=== PATIENT | female | born 1950 | race African-American/Black ===

== ENCOUNTER 2016-10-15 14:47 | Emergency (ER) | payer OTHER, BC, MEDICARE ==
[2016-10-15 15:05] VITALS: BP 140/68; PULSE 68; TEMP 98.5; BMI 36.6
[2016-10-15] MEDS ORDERED: IBUPROFEN 600 MG TABLET (FP) PO ONE (15:28)
--- NOTE | 2016-10-15 15:28 | PDOC ---
History of Present Illness - General Chief Complaint: Pain Stated Complaint: LT FOOT PAIN Time Seen by Provider: 10/15/16 15:08 History Source: Patient Exam Limitations: No Limitations - History of Present Illness Initial Comments: 10/15/16 15:25 66 yr female with left foot and ankle pain for 2 days, pt states she stepped on a rock 2 days ago. Pt did not take any pain meds. Occurred: reports: yesterday Severity: reports: mild Pain Location: reports: lower extremity (left foot/ankle) Past History 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 History Allergies/Adverse Reactions: Allergies Allergy/AdvReac Type Severity Reaction Status Date / Time Penicillins Allergy Hives Verified 10/15/16 15:03 codeine [Codeine] AdvReac HALLUCINATIONS, Verified 10/15/16 15:03 DROWSY morphine AdvReac HALLUCINATI Verified 10/15/16 15:03 ONS Home Medications: Ambulatory Orders Aspirin Coated [Ecotrin -] 81 mg PO DAILY 08/09/13 Docusate Sodium [Colace -] 100 mg PO DAILY 08/09/13 Acetaminophen [Tylenol .Regular Strength -] 650 mg PO Q6H PRN #0 tablet Albuterol Sulfate [Proair Hfa -] 1 inh PO ASDIR PRN 90 Days 05/17/15 Alprazolam [Xanax] 0.25 mg PO Q6H PRN #90 tablet 05/17/15 Atorvastatin Ca [Lipitor] 40 mg PO HS #90 tablet 05/17/15 Budesonide/Formeterol Fumarate [SYMBICORT 80/4.5mcg -] 2 inh IH BID 90 Days Clopidogrel Bisulfate [Plavix -] 75 mg PO DAILY #90 tablet 05/17/15 Folic Acid - 1 mg PO DAILY #90 tablet 05/17/15 Isosorbide Mononitrate [Imdur -] 90 mg PO DAILY 90 Days 05/17/15 Lactobacillus Acidophilus [Bacid -] 1 tab PO DAILY tab 05/17/15 Lisinopril [Prinivil] 10 mg PO DAILY #90 tablet 05/17/15 Magnesium Oxide [Mag-Ox -] 800 mg PO DAILY #90 tablet 05/17/15 Metformin HCl 500 mg PO BID #180 tablet 05/17/15 Metoprolol Succinate [Toprol XL -] 25 mg PO DAILY #90 tab.sr.24h 05/17/15 Prednisone [Deltasone -] 40 mg PO DAILY #20 tablet 05/17/15 Ranitidine HCl [Zantac] 150 mg PO DAILY #90 tablet 05/17/15 Tiotropium [place] [Spiriva] 1 inh PO DAILY #90 inh 05/17/15 Torsemide 20 mg PO DAILY #90 tablet 05/17/15 Tramadol HCl [Ultram -] 50 mg PO Q8H PRN #90 tablet 05/17/15 Gabapentin 100 mg PO TID PRN #270 capsule 05/18/15 Clindamycin [Cleocin -] 300 mg PO Q6HPO #28 capsule 12/02/15 Anemia: Yes Asthma: Yes (inhalers at home) Cancer: No Cardiac Disorders: Yes (ANGINA, STENTS X2) CVA: No COPD: No CHF: Yes Dementia: No Diabetes: Yes GI Disorders: Yes (ACID REFLUX) Disorders: No HTN: Yes Hypercholesterolemia: Yes Liver Disease: No Suicide Attempt (Hx): No Seizures: No Thyroid Disease: No Lung CA: (COPD) - Surgical History Abdominal Surgery: No Appendectomy: No Cardiac Surgery: Yes (DOUBLE AND TRIPLE BYPASS) Cholecystectomy: No Lung Surgery: No Neurologic Surgery: No Orthopedic Surgery: Yes (rt rotator cuff repair, rt knee surgery) - Psycho/Social/Smoking Cessation Hx Anxiety: Yes Suicidal Ideation: No Smoking Status: Yes Smoking History: Never smoked Have you smoked in the past 12 months: No Number of Cigarettes Smoked Daily: 0 If you are a former smoker, when did you quit?: about 30 years ago Hx Alcohol Use: No Drug/Substance Use Hx: No Substance Use Type: None Hx Substance Use Treatment: No Trauma Specific PMHX - Complaint Specific PMHX Arthritis: No Back Injury: No Review of Systems - Review of Systems Able to Perform ROS?: Yes Comments:: 10/15/16 15:27 Is the patient limited Telugu proficient: No Constitutional: No: Symptoms Reported HEENTM: No: Symptoms Reported, Recent change in vision Respiratory: No: Symptoms reported Cardiac (ROS): No: Symptoms Reported ABD/GI: No: Symptoms Reported : No: Symptoms Reported Musculoskeletal: Yes: See HPI Integumentary: No: Symptoms Reported Neurological: No: Symptoms reported *Physical Exam - Vital Signs Last Vital Signs Temp Pulse Resp BP Pulse Ox 98.5 F 68 18 140/68 99 10/15/16 15:03 10/15/16 15:03 10/15/16 15:03 10/15/16 15:03 10/15/16 15:03 - Physical Exam General Appearance: Yes: Nourished, Appropriately Dressed HEENT: positive: EOMI, NARESH Neck: positive: Supple. negative: Tender Respiratory/Chest: positive: Lungs Clear, Normal Breath Sounds Cardiovascular: positive: Regular Rhythm, Regular Rate Musculoskeletal: positive: Normal Inspection, Other (ttp left dorsal midfoot, forefoot, lateral malleoulus) Extremity: positive: Normal Capillary Refill, Normal Inspection, Normal Range of Motion Integumentary: positive: Normal Color, Dry, Warm Neurologic: positive: Fully Oriented, Alert, Normal Mood/Affect, Normal Response , Motor Strength / Procedures - Splinting Progress: 10/15/16 16:10 hayder wrap, hard sole shoe and cane ED Treatment Course - RADIOLOGY Radiology Studies Ordered: Category Date Time Status ANKLE & FOOT-LEFT* [RAD] Stat Radiology 10/15/16 15:19 Ordered Comments: avuslion cuboid bone left foot prelimiary reading Medical Decision Making - Medical Decision Making 10/15/16 15:28 cc: foot and ankle pain will xray to r/o fracture motrin for pain *DC/Admit/Observation/Transfer Diagnosis at time of Disposition: Foot fracture, left Qualifiers: Encounter type: initial encounter Fracture type: closed Qualified Code(s): S92.902A - Unspecified fracture of left foot, initial encounter for closed fracture - Discharge Dispostion Disposition: HOME Condition at time of disposition: Good - Referrals Referrals: Flores Christiansen [Primary Care Provider] - Igor Kilpatrick MD [Staff Physician] - - Patient Instructions Additional Instructions: call the orthopedist Tuesday to make a follow up appointment for tuesday or tuesday keep the hayder wrap and hard sole shoe in place elevate and apply ice every 2hrs for 20 minutes take motrin for pain as needed
== END 2016-10-15 16:31 | disposition home or self-care (01) ==
LOC: JERFT 14:47
DX: S92.902A Unspecified fracture of left foot, initial encounter for closed fracture (principal); W22.8XXA Striking against or struck by other objects, initial encounter; Y93.89 Activity, other specified; Y92.9 Unspecified place or not applicable; J45.909 Unspecified asthma, uncomplicated; Z95.5 Presence of coronary angioplasty implant and graft; I20.9 Angina pectoris, unspecified; K21.9 Gastro-esophageal reflux disease without esophagitis; I10 Essential (primary) hypertension; E78.00 Pure hypercholesterolemia, unspecified; J44.9 Chronic obstructive pulmonary disease, unspecified; Z87.891 Personal history of nicotine dependence
CPT/HCPCS: 73610-TC-LT; 73630-TC-LT; 99281-25

== ENCOUNTER 2017-01-31 05:17 | Day surgery (SDC) | payer OTHER, BC, MEDICARE ==
[2017-01-18 12:26] VITALS: BMI 34.7
[2017-01-31] MEDS ORDERED: IBUPROFEN 400 MG TABLET (FP) PO PRN (07:42)
[2017-01-31] MEDS ORDERED: ACETAMINOPHEN 325 MG TABLET (FP) PO PRN (07:42)
--- NOTE | 2017-01-31 07:42 | HP ---
[facility] - Chief Complaint Chief Complaint: submucosal myoma History Source: Patient 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 History Allergies/Adverse Reactions: Allergies Allergy/AdvReac Type Severity Reaction Status Date / Time Penicillins Allergy Hives Verified 01/31/17 07:24 codeine [Codeine] AdvReac HALLUCINATIONS, Verified 01/31/17 07:24 DROWSY morphine AdvReac HALLUCINATI Verified 01/31/17 07:24 ONS Cardiovascular: Yes: CAD, HTN, Hyperlipdemia Pulmonary: Yes: COPD Renal/: Yes: Renal Inusuff Infectious Disease: Yes: Other (oral abscess) Musculoskeletal: Yes: Osteoarthritis Rheumatology: Yes: Gout Endocrine: Yes: Hyperparathyroidism - Current Medications Current Medications: Home Medications Medication Instructions Recorded Aspirin Coated [Ecotrin -] 81 mg PO DAILY 08/09/13 Docusate Sodium [Colace -] 100 mg PO DAILY 08/09/13 Acetaminophen [Tylenol .Regular 650 mg PO Q6H PRN #0 tablet 05/17/15 Strength -] Albuterol Sulfate [Proair Hfa -] 1 inh PO ASDIR PRN 90 Days 05/17/15 Budesonide/Formeterol Fumarate 2 inh IH BID 90 Days 05/17/15 [SYMBICORT 80/4.5mcg -] Clopidogrel Bisulfate [Plavix -] 75 mg PO DAILY #90 tablet 05/17/15 Folic Acid - 1 mg PO DAILY #90 tablet 05/17/15 Lisinopril [Prinivil] 10 mg PO DAILY #90 tablet 05/17/15 Metformin HCl 500 mg PO BID #180 tablet 05/17/15 Metoprolol Succinate [Toprol XL -] 25 mg PO DAILY #90 tab.sr.24h 05/17/15 Torsemide 20 mg PO DAILY #90 tablet 05/17/15 Cholecalciferol (Vitamin D3) 1,000 unit PO ASDIR 01/18/17 [Vitamin D3] Duloxetine HCl [Cymbalta] 20 mg PO DAILY 01/18/17 Gabapentin 400 mg PO TID PRN 01/18/17 Isosorbide Mononitrate [Imdur -] 30 mg PO HS 01/18/17 Isosorbide Mononitrate [Imdur -] 60 mg PO DAILY 01/18/17 Metaxalone [Skelaxin] 800 mg PO PRN PRN 01/18/17 Nitroglycerin [Nitrostat] 0.4 mg SL PRN 01/18/17 Pravastatin Sodium [Pravachol] 40 mg PO HS 01/18/17 Ranitidine HCl [Zantac] 150 mg PO BID 01/18/17 Satellite Physical Exam - Physical Examination Vital Signs: Vital Signs Period Temp Pulse Resp BP Sys/Gray Pulse Ox Last 24 Hr 98.4 F 70 20 99/50 96 General Appearance: Well Nourished, Well Developed ENT: Clear Lung: Clear to auscultation Heart: Regular rate & rhythm Breasts: Soft, Non-Tender Abdomen: Soft, No tenderness Extremities: No edema Pelvic Exam: Within normal limits External Genitalia, Within normal limits Vagina, Within normal limits Cervix, Within normal limits [place], Other Uterus (myoma) Neurological: Intact, Alert, Oriented Satellite Impression/Plan - Impression/Plan Impression: submucosal myoma Operative Procedure: Hysteroscopic myomectomy. DC Date to be Performed: 01/31/17
[2017-01-31] MEDS ORDERED: PROPOFOL 20 ML ONE ×2 (08:01)
[2017-01-31] MEDS ORDERED: LIDOCAINE HCL/PF 2% SDV 5ML VIAL ONE (08:01)
--- NOTE | 2017-01-31 08:06 | OP ---
Operative Note - Note: Operative Date: 01/31/17 Pre-Operative Diagnosis: Submucosal myoma Operation: Hysteroscopic myomectomy. Suction DC Post-Operative Diagnosis: Same as Pre-op Surgeon: Carmen Mccollum Anesthesia: General Operative Report Dictated: Yes
[2017-01-31] MEDS ORDERED: ONDANSETRON 4 MG/2 ML VIAL IVPUSH PRN (08:47)
[2017-01-31] MEDS ORDERED: LACTATED RINGERS SOLUTION 1,000 ML IV SCH (09:00)
[2017-01-31 09:16] VITALS: TEMP 98
[2017-01-31 12:17] VITALS: BP 110/46; PULSE 71
--- NOTE | 2017-01-31 13:16 | OP ---
DATE OF OPERATION: 01/31/2017 PREOPERATIVE DIAGNOSIS: Submucosal myoma. OPERATION: Hysteroscopic myomectomy, suction dilation and curettage. POSTOPERATIVE DIAGNOSIS: Submucosal myoma. SURGEON: Carmen Mccollum MD ANESTHESIA: General. ANESTHESIOLOGIST: Lisa Mane MD DESCRIPTION OF PROCEDURE: The patient was taken to the operating room and placed in supine position, prepped and draped in the usual sterile fashion. After general anesthesia had been given, a time-out was called in accordance with hospital regurgitation. Speculum was placed in the vagina. Anterior lip of the cervix was grasped with a single-tooth tenaculum. Cervix was then dilated to accommodate the operative hysteroscope. Hysteroscopy was done, and two large submucosal myomas were seen or endometrial polyps. Resectoscope was inserted, and cautery of the submucosal myoma was done followed by removal of the myomas with polyp forceps and also hysteroscopic followed by suction dilation and curettage. All contents was submitted to Pathology. All instruments were then removed. Estimated blood loss 10 mL. CARMEN MCCOLLUM M.D. [id number]
--- NOTE | 2017-02-01 17:09 | PATH ---
Surgical Pathology Report Patient Name: VÍCTOR HAN [facility]. Rec. #: [id number] /Age/Gender: 1950 (Age: 67) / F Account: [id number] Location: [facility] SURGICAL Taken: 01/31/2017 Received: 01/31/2017 Reported: 02/01/2017 Physicians: Carmen Mccollum M.D. Specimen(s) Received MYOMA Clinical History Fibroids Final Diagnosis UTERUS, HYSTEROSCOPIC MYOMECTOMY, DILATATION AND CURETTAGE: ENDOMETRIAL POLYP, PROLIFERATIVE ENDOMETRIUM, AND SURFACE MYOMETRIUM. Electronically Signed Anais Ma M.D. Gross Description Received in formalin labeled "myoma," is a 2 g, 3.0 x 2.5 x 0.3 cm aggregate of multiple nicholson, irregular portions of soft tissue. The formalin is filtered and the specimen is entirely submitted in 2 cassettes. /01/31/2017 [place]/01/31/2017
== END 2017-01-31 12:33 | disposition home or self-care (01) ==
LOC: JASU-SURG 05:17
PROVIDERS: ATTEND Obstetrics & Gynecology
PROC: 0UB98ZZ Excision of Uterus, Via Natural or Artificial Opening Endoscopic (ICD-10-PCS; principal; 2017-01-31 08:00)
DX: D25.0 Submucous leiomyoma of uterus (principal)
CPT/HCPCS: 86850; 86900; 86901; 88305-TC

== ENCOUNTER 2018-06-28 14:24 | Emergency (ER) | payer OTHER, BC ==
[2018-06-28] MEDS ORDERED: DIPHTH,PERTUSS(ACELL),TET 0.5 ML DISP.SYRIN IM ONE ×2 (14:30→14:40)
--- NOTE | 2018-06-28 14:31 | PDOC ---
Rapid Medical Evaluation Chief Complaint: Tetanus,Booster Time Seen by Provider: 06/28/18 14:26 Medical Evaluation: Allergies Allergy/AdvReac Type Severity Reaction Status Date / Time Penicillins Allergy Hives Verified 01/31/17 07:24 codeine [Codeine] AdvReac HALLUCINATIONS, Verified 01/31/17 07:24 DROWSY morphine AdvReac HALLUCINATI Verified 01/31/17 07:24 ONS 06/28/18 14:28 Pt presents for a tetanus shot. She states that her doctor sent her over for a shot after she got scratched by her cat. She states the scratched happened 3 weeks ago. Denies pain, fevers, weakness/numbness/tingling to the affected extremity. Exam: L upper arm with 2 puncture wounds and bruising Orders: Boostrix Pt to proceed to ED for further evaluation Discharge Disposition - Diagnosis Need for tetanus booster - Referrals - Patient Instructions - Post Discharge Activity
[2018-06-28 14:32] VITALS: BP 145/60; PULSE 85; TEMP 97.5; BMI 36.6
--- NOTE | 2018-06-28 14:44 | PDOC ---
History of Present Illness - General Chief Complaint: Tetanus,Booster Stated Complaint: TETANUS SHOT Time Seen by Provider: 06/28/18 14:26 Past History 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 History Allergies/Adverse Reactions: Allergies Allergy/AdvReac Type Severity Reaction Status Date / Time Penicillins Allergy Hives Verified 06/28/18 14:31 codeine [Codeine] AdvReac HALLUCINATIONS, Verified 06/28/18 14:31 DROWSY morphine AdvReac HALLUCINATI Verified 06/28/18 14:31 ONS Home Medications: Ambulatory Orders Aspirin Coated [Ecotrin -] 81 mg PO DAILY 08/09/13 Docusate Sodium [Colace -] 100 mg PO DAILY 08/09/13 Acetaminophen [Tylenol .Regular Strength -] 650 mg PO Q6H PRN #0 tablet Albuterol Sulfate [Proair Hfa -] 1 inh PO ASDIR PRN 90 Days hfa.aer.ad Budesonide/Formeterol Fumarate [SYMBICORT 80/4.5mcg -] 2 inh IH BID 90 Days inhaler 05/17/15 Clopidogrel Bisulfate [Plavix -] 75 mg PO DAILY #90 tablet 05/17/15 Folic Acid - 1 mg PO DAILY #90 tablet 05/17/15 Lisinopril [Prinivil] 10 mg PO DAILY #90 tablet 05/17/15 Metoprolol Succinate [Toprol XL -] 25 mg PO DAILY #90 tab.sr.24h 05/17/15 Torsemide 20 mg PO DAILY #90 tablet 05/17/15 metFORMIN HCL [Metformin HCl] 500 mg PO BID #180 tablet 05/17/15 Cholecalciferol (Vitamin D3) [Vitamin D3] 1,000 unit PO ASDIR 01/18/17 Duloxetine HCl [Cymbalta] 20 mg PO DAILY 01/18/17 Gabapentin 400 mg PO TID PRN 01/18/17 Isosorbide Mononitrate [Imdur -] 30 mg PO HS 01/18/17 Isosorbide Mononitrate [Imdur -] 60 mg PO DAILY 01/18/17 Metaxalone [Skelaxin] 800 mg PO PRN PRN 01/18/17 Nitroglycerin [Nitrostat] 0.4 mg SL PRN 01/18/17 Pravastatin Sodium [Pravachol] 40 mg PO HS 01/18/17 Ranitidine HCl [Zantac] 150 mg PO BID 01/18/17 Acetaminophen [Tylenol] 325 mg PO QID PRN #30 tablet 01/31/17 Anemia: Yes Asthma: Yes (inhalers at home) Cancer: No Cardiac Disorders: Yes (ANGINA, STENTS X2) CVA: No COPD: No CHF: Yes Dementia: No Diabetes: Yes GI Disorders: Yes (ACID REFLUX) Disorders: No HTN: Yes Hypercholesterolemia: Yes Liver Disease: No Seizures: No Thyroid Disease: No Lung CA: (COPD) - Surgical History Abdominal Surgery: No Appendectomy: No Cardiac Surgery: Yes (DOUBLE AND TRIPLE BYPASS) Cholecystectomy: No Lung Surgery: No Neurologic Surgery: No Orthopedic Surgery: Yes (rt rotator cuff repair, rt knee surgery) - Suicide/Smoking/Psychosocial Hx Smoking Status: Yes Smoking History: Former smoker Have you smoked in the past 12 months: No Number of Cigarettes Smoked Daily: 0 If you are a former smoker, when did you quit?: about 30 years ago Information on smoking cessation initiated: No Hx Alcohol Use: No Drug/Substance Use Hx: No Substance Use Type: None Hx Substance Use Treatment: No *Physical Exam - Vital Signs Last Vital Signs Temp Pulse Resp BP Pulse Ox 97.5 F L 85 24 H 145/60 99 06/28/18 14:31 06/28/18 14:31 06/28/18 14:31 06/28/18 14:31 06/28/18 14:31 Medical Decision Making - Medical Decision Making 06/28/18 14:39 Pt presents for a tetanus shot. She states that her doctor sent her over for a shot after she got scratched by her cat. She states the scratched happened 3 weeks ago. Her cat is an indoor cat and UTD on all its vaccinations including the rabies vaccine. Denies pain, fevers, rash, redness to the extremity, weakness/numbness/tingling to the affected extremity. ROS: all negative except what is noted above. Exam: GENERAL: Well developed, well nourished. Awake and alert. No acute distress. MUSCULOSKELETAL Normal range of motion at all joints. No bony deformities or tenderness. No CVA tenderness. EXTREMITIES: No cyanosis. No clubbing. No edema. No calf tenderness. SKIN: SKIN: L upper lateral arm with 2 puncture wounds and bruising. Warm and dry. Normal capillary refill. No rashes. No jaundice. NEUROLOGICAL: Alert, awake, appropriate. Cranial nerves 2-12 intact. No deficits to light touch and temperature in face, upper extremities and lower extremities. No motor deficits in the in face, upper extremities and lower extremities. Normoreflexic in the upper and lower extremities. Normal speech. Toes are down- going bilaterally. Gait is normal without ataxia. A/P: Cat scratch, need for tetanus shot Tetanus ordered per pt primary care; given by CNA GNA Old cat scratch on exam, no redness or warmth, no concern for cellulitis DC home with symptomatic relief *DC/Admit/Observation/Transfer Diagnosis at time of Disposition: Need for tetanus booster - Discharge Dispostion Disposition: HOME Condition at time of disposition: Stable Decision to Admit order: No - Referrals Referrals: Praveen Lugo MD [Staff Physician] - - Patient Instructions Printed Discharge Instructions: DI for Cat Scratch Disease/Fever Additional Instructions: You were evaluated for your cat scratch; your tetanus shot was updated today Please continue to keep the area clean and dry Follow up with your primary care provided this week Return to the ED for any new or worsening symptoms - Post Discharge Activity
== END 2018-06-28 15:00 | disposition home or self-care (01) ==
LOC: JERFT 14:24
PROC: 3E0234Z Introduction of Serum, Toxoid and Vaccine into Muscle, Percutaneous Approach (ICD-10-PCS; principal; 2018-06-28)
DX: Z23 Encounter for immunization (principal)
CPT/HCPCS: 90471; 90715; 99281-25

== ENCOUNTER 2018-10-23 13:03 | Emergency (ER) | payer OTHER, BC, MEDICARE ==
[2018-10-23] MEDS ORDERED: SODIUM CHLORIDE 1,000 ML IV STA ×2 (13:21→16:58)
--- NOTE | 2018-10-23 13:21 | PDOC ---
Rapid Medical Evaluation Time Seen by Provider: 10/23/18 13:19 Medical Evaluation: Allergies Allergy/AdvReac Type Severity Reaction Status Date / Time Penicillins Allergy Hives Verified 06/28/18 14:31 codeine [Codeine] AdvReac HALLUCINATIONS, Verified 06/28/18 14:31 DROWSY morphine AdvReac HALLUCINATI Verified 06/28/18 14:31 ONS 10/23/18 13:19 I have performed a brief in-person evaluation of this patient. The patient presents with a chief complaint of: sent by PMD for abdominal pain Pertinent physical exam findings: RLQ tenderness I have ordered the following: labs, urine, CT The patient will proceed to the ED for further evaluation. Discharge Disposition - Diagnosis RLQ abdominal pain - Referrals - Patient Instructions - Post Discharge Activity
[2018-10-23 13:24] VITALS: BP 100/46; PULSE 81; TEMP 98.4; BMI 37.8
[2018-10-23] MEDS ORDERED: ACETAMINOPHEN 1000 MG/100 ML VIAL (NON FORMULARY) IVPB ONE (13:58)
--- NOTE | 2018-10-23 14:05 | PDOC ---
History of Present Illness - General Chief Complaint: Pain, Acute Stated Complaint: RT LEG PAIN Time Seen by Provider: 10/23/18 13:19 History Source: Patient Exam Limitations: No Limitations - History of Present Illness Initial Comments: 10/23/18 14:03 68-year-old female presents to ED with complaints of lower abdominal pain worsened with movement radiating to her right flank area without nausea, vomiting, diarrhea, constipation, urinary complaints, rash, abdominal distention. Patient states symptoms began 2 days ago when she tried to stand up from a sitting position. Patient denies recent travel, recent illness or recent injury. Patient with history of chronic low back pain, ASHD, hypertension, CABG , diabetes, and dyslipidemia Timing/Duration: other Severity: moderate Past History - Travel Traveled outside of the country in the last 30 days: No Close contact w/someone who was outside of country & ill: No 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 History Allergies/Adverse Reactions: Allergies Allergy/AdvReac Type Severity Reaction Status Date / Time aspirin Allergy Verified 10/23/18 13:19 Penicillins Allergy Hives Verified 06/28/18 14:31 codeine [Codeine] AdvReac HALLUCINATIONS, Verified 06/28/18 14:31 DROWSY morphine AdvReac HALLUCINATI Verified 06/28/18 14:31 ONS Home Medications: Ambulatory Orders Aspirin Coated [Ecotrin -] 81 mg PO DAILY 08/09/13 Docusate Sodium [Colace -] 100 mg PO DAILY 08/09/13 Acetaminophen [Tylenol .Regular Strength -] 650 mg PO Q6H PRN #0 tablet Albuterol Sulfate [Proair Hfa -] 1 inh PO ASDIR PRN 90 Days hfa.aer.ad Budesonide/Formeterol Fumarate [SYMBICORT 80/4.5mcg -] 2 inh IH BID 90 Days inhaler 05/17/15 Clopidogrel Bisulfate [Plavix -] 75 mg PO DAILY #90 tablet 05/17/15 Folic Acid - 1 mg PO DAILY #90 tablet 05/17/15 Lisinopril [Prinivil] 10 mg PO DAILY #90 tablet 05/17/15 Metoprolol Succinate [Toprol XL -] 25 mg PO DAILY #90 tab.sr.24h 05/17/15 Torsemide 20 mg PO DAILY #90 tablet 05/17/15 metFORMIN HCL [Metformin HCl] 500 mg PO BID #180 tablet 05/17/15 Cholecalciferol (Vitamin D3) [Vitamin D3] 1,000 unit PO ASDIR 01/18/17 Duloxetine HCl [Cymbalta] 20 mg PO DAILY 01/18/17 Gabapentin 400 mg PO TID PRN 01/18/17 Isosorbide Mononitrate [Imdur -] 30 mg PO HS 01/18/17 Isosorbide Mononitrate [Imdur -] 60 mg PO DAILY 01/18/17 Metaxalone [Skelaxin] 800 mg PO PRN PRN 01/18/17 Nitroglycerin [Nitrostat] 0.4 mg SL PRN 01/18/17 Pravastatin Sodium [Pravachol] 40 mg PO HS 01/18/17 Ranitidine HCl [Zantac] 150 mg PO BID 01/18/17 Acetaminophen [Tylenol] 325 mg PO QID PRN #30 tablet 01/31/17 Anemia: Yes Asthma: Yes (inhalers at home) Cancer: No Cardiac Disorders: Yes (ANGINA, STENTS X2) CVA: No COPD: Yes CHF: Yes Dementia: No Diabetes: Yes GI Disorders: Yes (ACID REFLUX) Disorders: No HTN: Yes Hypercholesterolemia: Yes Liver Disease: No Seizures: No Thyroid Disease: No Lung CA: (COPD) - Surgical History Abdominal Surgery: No Appendectomy: No Cardiac Surgery: Yes (DOUBLE AND TRIPLE BYPASS) Cholecystectomy: No Lung Surgery: No Neurologic Surgery: No Orthopedic Surgery: Yes (rt rotator cuff repair, rt knee surgery) - Immunization History Immunization Up to Date: No - Suicide/Smoking/Psychosocial Hx Smoking Status: Yes Smoking History: Never smoked Have you smoked in the past 12 months: No Number of Cigarettes Smoked Daily: 0 If you are a former smoker, when did you quit?: about 30 years ago Hx Alcohol Use: No Drug/Substance Use Hx: No Substance Use Type: None Hx Substance Use Treatment: No Patient Lives Alone: Yes Lives with/in: lives alone Review of Systems - Review of Systems Able to Perform ROS?: Yes Constitutional: No: Symptoms Reported HEENTM: No: Symptoms Reported Respiratory: No: Symptoms reported Cardiac (ROS): No: Symptoms Reported ABD/GI: Yes: Abdominal cramping : No: Symptoms Reported Musculoskeletal: Yes: Back Pain Integumentary: No: Symptoms Reported Neurological: No: Symptoms reported Endocrine: No: Symptoms Reported Hematologic/Lymphatic: No: Symptoms Reported *Physical Exam - Vital Signs Last Vital Signs Temp Pulse Resp BP Pulse Ox 98.4 F 81 18 100/46 L 96 10/23/18 13:21 10/23/18 13:21 10/23/18 13:21 10/23/18 13:21 10/23/18 13:21 - Physical Exam General Appearance: Yes: Nourished, Appropriately Dressed. No: Apparent Distress HEENT: positive: Pharynx Normal. negative: Pale Conjunctivae Neck: positive: Normal Thyroid Respiratory/Chest: positive: Lungs Clear, Normal Breath Sounds. negative: Respiratory Distress, Accessory Muscle Use Cardiovascular: positive: Regular Rhythm, Regular Rate. negative: Murmur Gastrointestinal/Abdominal: positive: Soft, Tenderness (right suprapubic right lower quadrant right flank) Musculoskeletal: positive: CVA Tenderness (R) Extremity: positive: Normal Inspection. negative: Pedal Edema Integumentary: positive: Normal Color, Warm, Moist. negative: Rash Neurologic: positive: Motor Strength 5/5 (able to perform straight leg raise of the right lower extremity) Heart Score/ECG Review - ECG Intrepretation Rhythm: Regular Rhythm (Rate 64 normal sinus rhythm) ED Treatment Course - LABORATORY CBC & Chemistry Diagram: 10/23/18 14:31 10/23/18 14:31 - RADIOLOGY Radiology Studies Ordered: Category Date Time Status LUMBAR SPINE CT W/O CONTRAST [CT] Stat CT Scan 10/23/18 13:55 Ordered Medical Decision Making - Medical Decision Making 10/23/18 14:08 Chief complaint: Lower abdominal pain for the past 2-3 days worsened with movement. Sent by PCP to rule out appendicitis versus other acute pathology Exam: Right suprapubic right lower quadrant right flank and right CVA tenderness Plan: Labs, urine, IV Tylenol and CT ordered 10/23/18 17:33 CT shows there is no definitive evidence of acute diverticulitis no obvious acute cholecystitis although cholelithiasis is seen. There is no definitive biliary tract dilatation. There is no evidence of acute diverticulitis or noncontrast small bowel pathology. There is an approximate 6 x 3 x 3.7 cm area of fluid accumulation seen within the right iliopsoas bursa centered at the level of the femoral head consistent with bursitis. 10/23/18 17:34 Laboratory Tests 10/23/18 10/23/18 10/23/18 14:31 14:31 14:31 WBC 11.6 H Hgb 12.7 Hct 40.3 RDW 16.5 H Plt Count 308 MPV 8.1 Absolute Neuts (auto) 7.5 Lymphocytes % 24.0 D Sodium 144 Potassium 3.8 Chloride 104 Carbon Dioxide 33 H Anion Gap 8 BUN 14.9 Creatinine 1.2 Random Glucose 96 Calcium 9.3 Total Bilirubin 0.5 AST 18 ALT 24 Total LDL Cholesterol HDL Cholesterol TSH 1.36 10/23/18 14:31 WBC Hgb Hct RDW Plt Count MPV Absolute Neuts (auto) Lymphocytes % Sodium Potassium Chloride Carbon Dioxide Anion Gap BUN Creatinine Random Glucose Calcium Total Bilirubin AST ALT Total LDL Cholesterol 77 HDL Cholesterol 51 TSH 10/23/18 18:[address] Aguilar and is aware of bursitis. She recommends giving medication for pain and orthopedist follow-up. *DC/Admit/Observation/Transfer Diagnosis at time of Disposition: Bursitis of hip - Discharge Dispostion Disposition: HOME Condition at time of disposition: Improved - Referrals Referrals: Flores Christiansen [Primary Care Provider] - Lennox Neville DO [Staff Physician] - - Patient Instructions Printed Discharge Instructions: DI for Hip Bursitis Additional Instructions: Please follow-up with referred orthopedist. Please take Tylenol as prescribed - Post Discharge Activity
[2018-10-23] MEDS ORDERED: ACETAMINOPHEN INJECTION 100 ML IVPB ONE (14:42)
[2018-10-23 15:04] LABS: BASO % 0.2 % (0-2.0); HEMATOCRIT 40.3 % (32.4-45.2); HEMOGLOBIN 12.7 GM/dL (10.7-15.3); MCHC 31.5 g/dl (32.0-36.0); MEAN CELL VOLUME 73.1 fl (80-96); MEAN PLT VOLUME 8.1 fl (7.5-11.1); MONO % 9.9 % (3.8-10.2); NEUT % 64.9 % (42.8-82.8); PLATELET COUNT 308 K/MM3 (134-434); RBC 5.52 M/mm3 (3.60-5.2); RDW 16.5 % (11.6-15.6); WHITE BLOOD COUNT 11.6 K/mm3 (4.0-10.0)
[2018-10-23 15:25] LABS: ALBUMIN 3.9 g/dl (3.4-5.0); BILIRUBIN,TOTAL 0.5 mg/dL (0.2-1); BLOOD UREA NITROGEN 14.9 mg/dL (7-18); CALCIUM 9.3 mg/dL (8.5-10.1); CREATININE 1.2 mg/dL (0.55-1.3); POTASSIUM 3.8 mmol/L (3.5-5.1); TOT PROT 7.8 g/dl (6.4-8.2)
[2018-10-23 15:28] LABS: CHOLESTEROL 168 mg/dL (50-200); HDL CHOLESTEROL 51 mg/dL (40-60); TRIGLYCERIDES 192 mg/dL (0-150)
--- NOTE | 2018-10-23 17:23 | EKG ---
Test Reason : Blood Pressure : / mmHG Vent. Rate : 073 BPM Atrial Rate : 073 BPM P-R Int : 176 ms QRS Dur : 092 ms QT Int : 366 ms P-R-T Axes : 065 060 038 degrees QTc Int : 403 ms NORMAL SINUS RHYTHM NORMAL ECG WHEN COMPARED WITH ECG OF 18-JAN-2017 11:06, NONSPECIFIC T WAVE ABNORMALITY NOW EVIDENT IN INFERIOR LEADS Confirmed by YANET HOOKS MD ([id number]) on 10/23/2018 5:23:31 PM Referred By: Confirmed By:YANET HOOKS MD
[2018-10-23 19:01] LABS: URINE APPEARANCE CLEAR; URINE COLOR YELLOW; URINE GLUCOSE (UA) NEGATIVE (NEGATIVE)
[2018-10-23 19:02] LABS: URINE BILIRUBIN NEGATIVE (NEGATIVE); URINE KETONE NEGATIVE (NEGATIVE)
[2018-10-23 19:04] LABS: URINE LEUK ESTERASE 1+ (NEGATIVE); URINE NITRITE NEGATIVE (NEGATIVE); URINE PROTEIN TRACE (NEGATIVE)
[2018-10-23 19:05] LABS: EPI CELLS 6.9 /HPF (0-5/HPF); HYALINE CASTS 36.13 /lpf (0-8); URINE BACTERIA 390.6 /hpf (NEGATIVE); URINE RBC 5.5 /hpf (0-4); URINE WBC 25 /hpf (0-5)
== END 2018-10-23 21:59 | disposition home or self-care (01) ==
LOC: JER 13:03
PROC: 3E033NZ Introduction of Analgesics, Hypnotics, Sedatives into Peripheral Vein, Percutaneous Approach (ICD-10-PCS; principal; 2018-10-23)
PROC: 3E0337Z Introduction of Electrolytic and Water Balance Substance into Peripheral Vein, Percutaneous Approach (ICD-10-PCS; 2018-10-23)
DX: M71.9 Bursopathy, unspecified (principal); Z87.891 Personal history of nicotine dependence; I10 Essential (primary) hypertension; K21.9 Gastro-esophageal reflux disease without esophagitis; I25.10 Atherosclerotic heart disease of native coronary artery without angina pectoris; J44.9 Chronic obstructive pulmonary disease, unspecified
CPT/HCPCS: 36415; 72131-TC; 74177-TC; 80053; 80061; 81003; 83690; 83721; 84443; 85025; 87086; 93005; 93010; 96361; 96374; 99282-25; J0131; J7030

== ENCOUNTER 2018-11-04 19:26 | Observation (INO) | payer OTHER, BC, MEDICARE ==
--- NOTE | 2018-11-04 19:32 | PDOC ---
History of Present Illness - General Stated Complaint: FALL Time Seen by Provider: 11/04/18 19:31 - History of Present Illness Initial Comments: 11/04/18 20:16 HPI: 68 y/o F with hx of COPD, CHF, CAD s/p CABGx2, HTN, DM, HLD, ?parkinsons presenting following a fall that occurred earlier today. She states around 2pm she was setting up curtains at home while standing on a stool and lost her balance and fell. She denies any LOC, seizure, tongue biting, confusion, AMS, MCKAY , dizziness, chest pain, palpitations, SOB, abd pain, diaphoresis, n/v. Patient on plavix and ASA Of note, she reports lightheadedness x2 weeks and unsteadiness on her feet. Denies any syncopal episodes, change in vision PMHx: as noted above ROS: as noted SHx: Denies Etoh, IVDA, tobacco use Allergies: morphine, penicillin, codeine 11/04/18 21:28 EKG: NSR with RBBB similar to previous EKG, now with PVCs. No ST segment elevation or depression appreciated Past History 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 History Allergies/Adverse Reactions: Allergies Allergy/AdvReac Type Severity Reaction Status Date / Time aspirin Allergy Verified 10/23/18 13:19 Penicillins Allergy Hives Verified 06/28/18 14:31 codeine [Codeine] AdvReac HALLUCINATIONS, Verified 06/28/18 14:31 DROWSY morphine AdvReac HALLUCINATI Verified 06/28/18 14:31 ONS Home Medications: Ambulatory Orders Aspirin Coated [Ecotrin -] 81 mg PO DAILY 08/09/13 Docusate Sodium [Colace -] 100 mg PO DAILY 08/09/13 Acetaminophen [Tylenol .Regular Strength -] 650 mg PO Q6H PRN #0 tablet Albuterol Sulfate [Proair Hfa -] 1 inh PO ASDIR PRN 90 Days hfa.aer.ad Budesonide/Formeterol Fumarate [SYMBICORT 80/4.5mcg -] 2 inh IH BID 90 Days inhaler 05/17/15 Clopidogrel Bisulfate [Plavix -] 75 mg PO DAILY #90 tablet 05/17/15 Folic Acid - 1 mg PO DAILY #90 tablet 05/17/15 Lisinopril [Prinivil] 10 mg PO DAILY #90 tablet 05/17/15 Metoprolol Succinate [Toprol XL -] 25 mg PO DAILY #90 tab.sr.24h 05/17/15 Torsemide 20 mg PO DAILY #90 tablet 05/17/15 metFORMIN HCL [Metformin HCl] 500 mg PO BID #180 tablet 05/17/15 Cholecalciferol (Vitamin D3) [Vitamin D3] 1,000 unit PO ASDIR 01/18/17 Duloxetine HCl [Cymbalta] 20 mg PO DAILY 01/18/17 Gabapentin 400 mg PO TID PRN 01/18/17 Isosorbide Mononitrate [Imdur -] 30 mg PO HS 01/18/17 Isosorbide Mononitrate [Imdur -] 60 mg PO DAILY 01/18/17 Metaxalone [Skelaxin] 800 mg PO PRN PRN 01/18/17 Nitroglycerin [Nitrostat] 0.4 mg SL PRN 01/18/17 Pravastatin Sodium [Pravachol] 40 mg PO HS 01/18/17 Ranitidine HCl [Zantac] 150 mg PO BID 01/18/17 Acetaminophen [Tylenol] 325 mg PO QID PRN #30 tablet 01/31/17 Anemia: Yes Asthma: Yes (inhalers at home) Cancer: No Cardiac Disorders: Yes (ANGINA, STENTS X2) CVA: No COPD: Yes CHF: Yes Dementia: No Diabetes: Yes GI Disorders: Yes (ACID REFLUX) Disorders: No HTN: Yes Hypercholesterolemia: Yes Liver Disease: No Seizures: No Thyroid Disease: No Lung CA: (COPD) - Surgical History Abdominal Surgery: No Appendectomy: No Cardiac Surgery: Yes (DOUBLE AND TRIPLE BYPASS) Cholecystectomy: No Lung Surgery: No Neurologic Surgery: No Orthopedic Surgery: Yes (rt rotator cuff repair, rt knee surgery) - Immunization History Immunization Up to Date: No - Suicide/Smoking/Psychosocial Hx Smoking Status: Yes Smoking History: Never smoked Have you smoked in the past 12 months: No Number of Cigarettes Smoked Daily: 0 If you are a former smoker, when did you quit?: about 30 years ago Hx Alcohol Use: No Drug/Substance Use Hx: No Substance Use Type: None Hx Substance Use Treatment: No Review of Systems - Review of Systems Comments:: 11/04/18 20:48 GENERAL/CONSTITUTIONAL: No fever or chills. No weakness. HEAD, EYES, EARS, NOSE AND THROAT: No change in vision. No ear pain or discharge. No sore throat. CARDIOVASCULAR: No chest pain or shortness of breath RESPIRATORY: No cough, wheezing, or hemoptysis. GASTROINTESTINAL: No nausea, vomiting, diarrhea or constipation. GENITOURINARY: No dysuria, frequency, or change in urination. MUSCULOSKELETAL: back pain, shoulder pain, hip pain SKIN: No rash NEUROLOGIC: +LH. ENDOCRINE: No increased thirst. No abnormal weight change HEMATOLOGIC/LYMPHATIC: No anemia, easy bleeding, or history of blood clots. ALLERGIC/IMMUNOLOGIC: No hives or skin allergy. *Physical Exam - Physical Exam Comments: 11/04/18 20:50 GENERAL: Awake, alert, and fully oriented, in no acute distress HEAD: Left frontal hematoma with overyling ecchymosis, tender to palpation, no lacerations or bleed EYES: EOMI, sclera anicteric, conjunctiva clear ENT: Auricles normal inspection, hearing grossly normal, nares patent, oropharynx clear without exudates. Moist mucosa NECK: Normal ROM, supple, no lymphadenopathy, JVD, or masses LUNGS: No distress, speaks full sentences, clear to auscultation bilaterally HEART: Regular rate and rhythm, normal S1 and S2, no murmurs, rubs or gallops, peripheral pulses normal and equal bilaterally. ABDOMEN: Soft, nontender, normoactive bowel sounds. No guarding, no rebound. No masses EXTREMITIES : No bony TTP, BL shoulder TTP, right hip TTP, no hematoma or ecchymosis, FROM but with pain. NEUROLOGICAL: Cranial nerves II through XII grossly intact. Normal speech, normal gait, no focal sensorimotor deficits SKIN: Warm, Dry, normal turgor, no rashes or lesions noted ED Treatment Course - LABORATORY CBC & Chemistry Diagram: 11/04/18 20:22 11/04/18 20:22 Medical Decision Making - Medical Decision Making 11/04/18 20:59 68 y/o F with hx of COPD, CHF, CAD s/p CABGx2, HTN, DM, HLD, ?parkinsons presenting following a fall that occurred earlier today now with right shoulder and hip pain. Vitals wnl. Physical exam notable for left frontal hematoma with overlying ecchymosis and right hip and shoulder tenderness -CBC, CMP, coags, trops, UA, UCx, Mg -EKG, CXR, CT head, CT cspine, BL shoulder XR, right hip XR -IV tylenol 11/04/18 23:25 Imaging studies without any acute pathology Discussed with Dr Christiansen; recs to admit for 24 hr obs and repeat CT *DC/Admit/Observation/Transfer Diagnosis at time of Disposition: Fall Qualifiers: Encounter type: initial encounter Qualified Code(s): W19.XXXA - Unspecified fall, initial encounter Head trauma Qualifiers: Encounter type: initial encounter Qualified Code(s): S09.90XA - Unspecified injury of head, initial encounter - Discharge Dispostion Condition at time of disposition: Stable Decision to Admit order: Yes - Referrals Referrals: Flores Christiansen [Primary Care Provider] - - Patient Instructions - Post Discharge Activity
[2018-11-04] MEDS ORDERED: ACETAMINOPHEN 1000 MG/100 ML VIAL (NON FORMULARY) IVPB ONE (20:14)
[2018-11-04] MEDS ORDERED: ACETAMINOPHEN INJECTION 100 ML IVPB ONE (20:18)
[2018-11-04 20:24] VITALS: BMI 36.6
[2018-11-04 20:39] LABS: BASO % 0.5 % (0-2.0); EOS % 1.7 % (0-4.5); HEMATOCRIT 38.6 % (32.4-45.2); HEMOGLOBIN 12.1 GM/dL (10.7-15.3); LYMPH % 26.7 % (8-40); MCHC 31.4 g/dl (32.0-36.0); MEAN CELL VOLUME 73.2 fl (80-96); MEAN PLT VOLUME 7.7 fl (7.5-11.1); MONO % 9.4 % (3.8-10.2); NEUT % 61.7 % (42.8-82.8); PLATELET COUNT 261 K/MM3 (134-434); RBC 5.28 M/mm3 (3.60-5.2); RDW 16.4 % (11.6-15.6); WHITE BLOOD COUNT 9.9 K/mm3 (4.0-10.0)
[2018-11-04 20:58] LABS: INR 1.05 (0.83-1.09); PROTHROMBIN TIME (PATIENT) 12.4 SEC (9.7-13.0)
[2018-11-04 21:01] LABS: ACTIVATED PTT 31.2 SECONDS (25.2-36.5)
[2018-11-04 21:07] LABS: ALBUMIN 3.6 g/dl (3.4-5.0); BILIRUBIN,TOTAL 0.6 mg/dL (0.2-1); BLOOD UREA NITROGEN 14.4 mg/dL (7-18); CALCIUM 9.2 mg/dL (8.5-10.1); CREATININE 0.7 mg/dL (0.55-1.3); MAGNESIUM 1.8 mg/dL (1.8-2.4); TOT PROT 7.1 g/dl (6.4-8.2)
--- NOTE | 2018-11-05 00:55 | PDOC ---
Documentation entered by Mary Ellen Toro SCRIBE, acting as scribe for Thania Baldwin MD. Thania Baldwin MD: This documentation has been prepared by the Muna gordillo Sammi, SCRIBE, under my direction and personally reviewed by me in its entirety. I confirm that the documentation accurately reflects all work, treatment, procedures, and medical decision making performed by me. Attending Attestation - Resident Resident Name: TaoSarah - ED Attending Attestation I have performed the following: I have examined & evaluated the patient, The case was reviewed & discussed with the resident, I agree w/resident's findings & plan - HPI HPI: 11/04/18 20:12 The patient is a 68 year old female, with a significant PMH of CAD s/p CABG and stents x4, hypertension, hyperlipidemia, CHF, COPD, asthma and diabetes, who presents to the emergency department for evaluation s/p fall around 2 pm this afternoon when she was on a stool putting up curtains. The patient states she was on the ground for about 4 hours before she was able to get to the phone to call someone. She reports hitting the right side of her head and complains of right hip pain. Denies chest pain, SOB, headache, dizziness currently or prior to accident. The patient notes she has noticed shes been more unsteady the past couple of weeks. The patient denies chest pain, shortness of breath. Denies fever, chills, nausea, vomiting, diarrhea and constipation. Denies dysuria, frequency, urgency and hematuria. Allergies: aspirin, penicillin, codeine, morphine PCP: Flores Androne - Physicial Exam PE: 11/04/18 22:30 GENERAL: Awake, alert, and fully oriented, in no acute distress HEAD: (+)erythema to left forehead EYES: PERRLA, EOMI, sclera anicteric, conjunctiva clear ENT: Auricles normal inspection, hearing grossly normal, nares patent, oropharynx clear without exudates. Moist mucosa NECK: Normal ROM, supple, no lymphadenopathy, JVD, or masses LUNGS: Breath sounds equal, clear to auscultation bilaterally. No wheezes, and no crackles HEART: Regular rate and rhythm, normal S1 and S2, no murmurs, rubs or gallops ABDOMEN: Soft, nontender, normoactive bowel sounds. No guarding, no rebound. No masses EXTREMITIES: Normal range of motion, no edema. No clubbing or cyanosis. No cords, erythema, or tenderness NEUROLOGICAL: Cranial nerves II through XII grossly intact. Normal speech, normal gait SKIN: Warm, Dry, normal turgor, no rashes or lesions noted. - Medical Decision Making 11/04/18 22:29 Pt has slight erythematoud area on the left forehead where her head struck a dresser. Pt's neuro exam is normal rest of exam normal. 11/04/18 22:36 I spoke to SABRINA Christiansen who is aware of the CT findings and the possible thyroid goiter. She wants pt to be admitted to the hospitalist team for [address] and observation , as pt is on plavix. 11/05/18 01:31 Pt has UTI; we will treat with bactrim DS, as she is PCN allergic
[2018-11-05 01:23] LABS: EPI CELLS 5.4 /HPF (0-5/HPF); HYALINE CASTS 9 /lpf (0-8); URINE APPEARANCE CLOUDY; URINE BACTERIA 220.2 /hpf (NEGATIVE); URINE BILIRUBIN NEGATIVE (NEGATIVE); URINE COLOR YELLOW; URINE GLUCOSE (UA) NEGATIVE (NEGATIVE); URINE KETONE NEGATIVE (NEGATIVE); URINE LEUK ESTERASE 2+ (NEGATIVE); URINE NITRITE NEGATIVE (NEGATIVE); URINE PROTEIN NEGATIVE (NEGATIVE); URINE RBC 1 /hpf (0-4); URINE UROBILINOGEN 0.2 mg/dL (0.2-1.0); URINE WBC 27 /hpf (0-5)
[2018-11-05] MEDS ORDERED: SULFAMETHOXAZOLE/TRIMETHOPRIM 800MG/160MG D.S. TABLET PO ONE (01:31)
[2018-11-05] MEDS ORDERED: SULFAMETHOXAZOLE/TRIMETHOPRIM 800MG/160MG D.S. TABLET ONE (03:12)
--- NOTE | 2018-11-05 03:26 | HP ---
CHIEF COMPLAINT: mechanical fall PCP: Dr. Christiansen HISTORY OF PRESENT ILLNESS: 68 y/o female with PMH of COPD, CHF, CAD s/p CABG (2 stents on ASA and Plavix), HTN, pre-diabetes presents to the ED after a mechanical fall. Patient states that she was standing on a stool trying to hang some curtains and she lost her balance (denies any prodromal symptoms such as dizziness, chest pains, shortness of breath, sweats, n/v) she denies LOC however she did hit her head on the dresser- she could not get up and was laying on the floor for hours until she crawled to call her grandson and he came straight over, then EMS was called and she was brought to the ED. She denies any systemic symptoms no cough/ cold/fevers/chills she uses a walker to ambulate and she lives by herself- she has a home health aid a few hours a day. 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 ER course was notable for: (1) vitals and labs wnl (2)head and c spine CT negative hip/shoulder XRAYS pending (3) UA 2+ leuk estrase 21 WBC got 1 dose of bactrim Recent Travel: denies PAST MEDICAL HISTORY: see above PAST SURGICAL HISTORY: CABG; rotator cuff surgery Social History: Smoking: former smoker quit in her 30's Alcohol:social alcohol use Drugs: denies Family History: mother and father DM/HTN Allergies aspirin Allergy (Verified 10/23/18 13:19) Penicillins Allergy (Verified 06/28/18 14:31) Hives codeine [Codeine] Adverse Reaction (Verified 06/28/18 14:31) HALLUCINATIONS, DROWSY morphine Adverse Reaction (Verified 06/28/18 14:31) HALLUCINATIONS HOME MEDICATIONS: Home Medications Medication Instructions Recorded Aspirin Coated [Ecotrin -] 81 mg PO DAILY 08/09/13 Docusate Sodium [Colace -] 100 mg PO DAILY 08/09/13 Acetaminophen [Tylenol .Regular 650 mg PO Q6H PRN #0 tablet 05/17/15 Strength -] Albuterol Sulfate [Proair Hfa -] 1 inh PO ASDIR PRN 90 Days 05/17/15 [email or web address] Budesonide/Formeterol Fumarate 2 inh IH BID 90 Days inhaler 05/17/15 [SYMBICORT 80/4.5mcg -] Clopidogrel Bisulfate [Plavix -] 75 mg PO DAILY #90 tablet 05/17/15 Folic Acid - 1 mg PO DAILY #90 tablet 05/17/15 Lisinopril [Prinivil] 10 mg PO DAILY #90 tablet 05/17/15 Metoprolol Succinate [Toprol XL -] 25 mg PO DAILY #90 tab.sr.24h 05/17/15 Torsemide 20 mg PO DAILY #90 tablet 05/17/15 metFORMIN HCL [Metformin HCl] 500 mg PO BID #180 tablet 05/17/15 Cholecalciferol (Vitamin D3) 1,000 unit PO ASDIR 01/18/17 [Vitamin D3] Duloxetine HCl [Cymbalta] 20 mg PO DAILY 01/18/17 Gabapentin 400 mg PO TID PRN 01/18/17 Isosorbide Mononitrate [Imdur -] 30 mg PO HS 01/18/17 Isosorbide Mononitrate [Imdur -] 60 mg PO DAILY 01/18/17 Metaxalone [Skelaxin] 800 mg PO PRN PRN 01/18/17 Nitroglycerin [Nitrostat] 0.4 mg SL PRN 01/18/17 Pravastatin Sodium [Pravachol] 40 mg PO HS 01/18/17 Ranitidine HCl [Zantac] 150 mg PO BID 01/18/17 Acetaminophen [Tylenol] 325 mg PO QID PRN #30 tablet 01/31/17 REVIEW OF SYSTEMS CONSTITUTIONAL: Absent: fever, chills, diaphoresis, generalized weakness, malaise, loss of appetite, weight change HEENT: Absent: rhinorrhea, nasal congestion, throat pain, throat swelling, difficulty swallowing, mouth swelling, ear pain, eye pain, visual changes CARDIOVASCULAR: Absent: chest pain, syncope, palpitations, irregular heart rate, lightheadedness , peripheral edema RESPIRATORY: Absent: cough, shortness of breath, dyspnea with exertion, orthopnea, wheezing, stridor, hemoptysis GASTROINTESTINAL: Absent: abdominal pain, abdominal distension, nausea, vomiting, diarrhea, constipation, melena, hematochezia GENITOURINARY: Absent: dysuria, frequency, urgency, hesitancy, hematuria, flank pain, genital pain MUSCULOSKELETAL: Present: hip pain, shoudler pain Absent: myalgia, arthralgia, joint swelling, back pain, neck pain SKIN: Absent: rash, itching, pallor HEMATOLOGIC/IMMUNOLOGIC: Absent: easy bleeding, easy bruising, lymphadenopathy, frequent infections ENDOCRINE: Absent: unexplained weight gain, unexplained weight loss, heat intolerance, cold intolerance NEUROLOGIC: Absent: headache, focal weakness or paresthesias, dizziness, unsteady gait, seizure, mental status changes, bladder or bowel incontinence PSYCHIATRIC: Absent: anxiety, depression, suicidal or homicidal ideation, hallucinations. PHYSICAL EXAMINATION Vital Signs - 24 hr 11/04/18 11/05/18 19:32 02:20 Temperature 98.2 F Pulse Rate 72 Pulse Rate [ 68 Right Radial] Respiratory 16 14 Rate Blood Pressure 147/71 Blood Pressure 121/55 L [Left Arm] O2 Sat by Pulse 95 97 Oximetry (%) GENERAL: Awake, alert, and fully oriented, in no acute distress. HEAD: left sided upper contusion EYES: PEERLA; EOMI: no scleral icterus . NECK: no JVD; no lymphadenopathy LUNGS: CTA B/L; no rales, rhonchi or wheezing HEART: Regular rate and rhythm, normal S1 and S2 without murmur, rub or gallop. ABDOMEN: Soft, nontender, not distended, normoactive bowel sounds, no guarding, no rebound, no masses. No hepatomegaly or splenomegaly. MUSCULOSKELETAL: Normal range of motion at all joints. No bony deformities or tenderness. No CVA tenderness. EXTREMITIES: warm; well-perfused no clubbing/cyanosis or edema NEUROLOGICAL: CN 2-12 intact RUE 5/5 strength RLE 4/5 strength; LUE/LLE: 5/5 strength B/L sensation intact throughout no facial asymmetry PSYCHIATRIC: Cooperative. Good eye contact. Appropriate mood and affect. SKIN: Warm, dry, normal turgor, no rashes or lesions noted, normal capillary refill. Laboratory Results - last 24 hr 11/04/18 11/04/18 11/04/18 20:22 20:22 20:22 WBC 9.9 RBC 5.28 H Hgb 12.1 Hct 38.6 MCV 73.2 L MCH 23.0 L MCHC 31.4 L RDW 16.4 H Plt Count 261 MPV 7.7 Absolute Neuts (auto) 6.1 Neutrophils % 61.7 Lymphocytes % 26.7 Monocytes % 9.4 Eosinophils % 1.7 Basophils % 0.5 Nucleated RBC % 0 PT with INR 12.40 INR 1.05 PTT (Actin FS) 31.2 Sodium Potassium Chloride Carbon Dioxide Anion Gap BUN Creatinine Est GFR (CKD-EPI)AfAm Est GFR (CKD-EPI)NonAf Random Glucose Calcium Magnesium 1.8 Total Bilirubin AST ALT Alkaline Phosphatase Creatine Kinase 96 Troponin I < 0.02 Total Protein Albumin Urine Color Urine Appearance Urine pH Ur Specific [place] Urine Protein Urine Glucose (UA) Urine Ketones Urine Blood Urine Nitrite Urine Bilirubin Urine Urobilinogen Ur Leukocyte Esterase Urine WBC (Auto) Urine RBC (Auto) Urine Casts (Auto) U Epithel Cells (Auto) Urine Bacteria (Auto) 11/04/18 11/05/18 20:22 01:00 WBC RBC Hgb Hct MCV MCH MCHC RDW Plt Count MPV Absolute Neuts (auto) Neutrophils % Lymphocytes % Monocytes % Eosinophils % Basophils % Nucleated RBC % PT with INR INR PTT (Actin FS) Sodium 139 Potassium 5.0 Chloride 104 Carbon Dioxide 28 Anion Gap 6 L BUN 14.4 Creatinine 0.7 Est GFR (CKD-EPI)AfAm 101.74 Est GFR (CKD-EPI)NonAf 87.78 Random Glucose 112 H Calcium 9.2 Magnesium Total Bilirubin 0.6 AST 37 ALT 23 Alkaline Phosphatase 81 Creatine Kinase Troponin I Total Protein 7.1 Albumin 3.6 Urine Color Yellow Urine Appearance Cloudy Urine pH 5.0 Ur Specific [place] 1.022 Urine Protein Negative Urine Glucose (UA) Negative Urine Ketones Negative Urine Blood Negative Urine Nitrite Negative Urine Bilirubin Negative Urine Urobilinogen 0.2 Ur Leukocyte Esterase 2+ H Urine WBC (Auto) 27 Urine RBC (Auto) 1 Urine Casts (Auto) 9 U Epithel Cells (Auto) 5.4 Urine Bacteria (Auto) 220.2 ASSESSMENT/PLAN: 68 y/o female with PMH of COPD, CHF,HTN, CAD s/p CABG (2 stents on ASA and Plavix), pre-diabetes presents to the ED after a mechanical fall. #s/p mechanical fall patient underwent a mechanical fall -will repeat head CT within 24 hours given that patient is on blood thinner -initial head CT negative for any acute pathology -shoulder/hip imaging pending -tylenol PRN for pain -PT #UTI patients UA showed 2 +leuk esterase, 21 WBC -patient received 1 dose of bactrim -patient is asymptomatic ; will wait for urine cx to come back #Pre-Diabetes will hold patients metformin and place on sliding scale while in the hospital -BGMS ACHS #CAD will c/w ASA, plavix, statin #HTN will c/w patients home medications -lisinopril, imdur, toprol XL #COPD patient does not use home o2 -will c/w patients home inhalers -maintain saturations 88-92% F/E/N not on fluids monitor electrolytes sodium controlled diet DVT PPX: plavix and SCDS Problem List - Problem (1) Fall Code(s): W19.XXXA - UNSPECIFIED FALL, INITIAL ENCOUNTER Qualifiers: Encounter type: initial encounter Qualified Code(s): W19.XXXA - Unspecified fall, initial encounter (2) Diabetes Code(s): E11.9 - TYPE 2 DIABETES MELLITUS WITHOUT COMPLICATIONS (3) HTN (hypertension) Code(s): I10 - ESSENTIAL (PRIMARY) HYPERTENSION (4) S/P CABG (coronary artery bypass graft) Code(s): Z95.1 - PRESENCE OF AORTOCORONARY BYPASS GRAFT Visit type - Emergency Visit Emergency Visit: Yes Care time: The patient presented to the Emergency Department on the above date and was hospitalized for further evaluation of their emergent condition. - New Patient This patient is new to me today: Yes Date on this admission: 11/05/18 - Critical Care Critical Care patient: No ATTENDING PHYSICIAN STATEMENT I saw and evaluated the patient. I reviewed the resident's note and discussed the case with the resident. I agree with the resident's findings and plan as documented. SUBJECTIVE: OBJECTIVE: ASSESSMENT AND PLAN:
[2018-11-05] MEDS ORDERED: ALBUTEROL SO4 8 GM HFA INHALER IH PRN (03:31)
[2018-11-05] MEDS ORDERED: GABAPENTIN 400 MG CAPSULE (FP) PO PRN (03:31)
--- NOTE | 2018-11-05 06:04 | PN ---
Teaching Attending Note Name of Resident: Roula Alfonso ATTENDING PHYSICIAN STATEMENT I saw and evaluated the patient. I reviewed the resident's note and discussed the case with the resident. I agree with the resident's findings and plan as documented. Evaluated the patient in pain at the side of fall.She is a very pleasant 68 Y/O F on DAPT for CAD, P/W mechanical fall with no LOC. she called 911 after 2 hours as she was not able to stand up.At this time she has no neurological deficit other than the pain at the site of the fall,Xray have been negative she is being admitted for further montoring for 24 hours for F/U HCT. the benefit of getting FU HCT in patient with no LOC is unclear but will do so as the patient PMD has concerns,. will C/W home medication Abnormal urine in an asymptomatic patient no need for treatment.
[2018-11-05] MEDS: INSULIN SLIDING SCALE (NOVOLOG) 1 VIAL SQ SCH ×4 (06:34→23:36)
[2018-11-05] MEDS ORDERED: metFORMIN HCL 500 MG TABLET (FP) PO SCH (07:00)
[2018-11-05] MEDS ORDERED: ASPIRIN COATED 81 MG TABLET.EC ONE (07:24)
[2018-11-05] MEDS ORDERED: LISINOPRIL 5 MG TABLET (FP) ONE (07:25)
[2018-11-05] MEDS ORDERED: CLOPIDOGREL BISULFATE 75 MG TABLET (FP) ONE (07:25)
[2018-11-05] MEDS ORDERED: ISOSORBIDE MONONITRATE 60 MG TAB.SR.24H (FP) PO ONE ×2 (07:25→20:20)
[2018-11-05] MEDS ORDERED: RANITIDINE HCL 150 MG TABLET (FP) ONE ×2 (07:25→20:19)
[2018-11-05] MEDS ORDERED: DOCUSATE SODIUM 100 MG CAPSULE (FP) PO ONE (07:26)
[2018-11-05] MEDS: LISINOPRIL 10 MG TABLET (FP) PO SCH (09:35)
[2018-11-05] MEDS: TORSEMIDE 20 MG TABLET (FP) PO SCH (09:35)
[2018-11-05] MEDS: metoPROLOL SUCCINATE 25 MG TAB.SR.24H (FP) PO SCH (09:35)
[2018-11-05] MEDS: CLOPIDOGREL BISULFATE 75 MG TABLET (FP) PO SCH (09:35)
[2018-11-05] MEDS: RANITIDINE HCL 150 MG TABLET (FP) PO SCH ×2 (09:35→23:35)
[2018-11-05] MEDS: ASPIRIN COATED 81 MG TABLET.EC PO SCH (09:35)
[2018-11-05] MEDS: DOCUSATE SODIUM 100 MG CAPSULE (FP) PO SCH (09:35)
[2018-11-05] MEDS: ISOSORBIDE MONONITRATE 60 MG TAB.SR.24H (FP) PO SCH (09:35)
[2018-11-05] MEDS: DULoxetine HCL 20 MG CAPSULE.DR PO SCH (09:35)
[2018-11-05] MEDS: BUDESONIDE/FORMETEROL FUMARATE 80/4.5 mcg INHALER IH SCH ×2 (09:36→23:50)
--- NOTE | 2018-11-05 10:28 | EKG ---
Test Reason : Blood Pressure : / mmHG Vent. Rate : 081 BPM Atrial Rate : 081 BPM P-R Int : 204 ms QRS Dur : 092 ms QT Int : 394 ms P-R-T Axes : 055 030 059 degrees QTc Int : 457 ms SINUS RHYTHM WITH PREMATURE SUPRAVENTRICULAR COMPLEXES OTHERWISE NORMAL ECG WHEN COMPARED WITH ECG OF 23-OCT-2018 13:51, PREMATURE SUPRAVENTRICULAR COMPLEXES ARE NOW PRESENT NONSPECIFIC T WAVE ABNORMALITY NO LONGER EVIDENT IN INFERIOR LEADS QT HAS LENGTHENED Confirmed by Iona Simon ([id number]) on 11/05/2018 10:28:15 AM Referred By: Confirmed By:Iona Simon
--- NOTE | 2018-11-05 13:10 | EKG ---
Test Reason : Blood Pressure : / mmHG Vent. Rate : 069 BPM Atrial Rate : 069 BPM P-R Int : 204 ms QRS Dur : 106 ms QT Int : 400 ms P-R-T Axes : 074 064 056 degrees QTc Int : 428 ms NORMAL SINUS RHYTHM NORMAL ECG WHEN COMPARED WITH ECG OF 04-NOV-2018 20:56, PREMATURE SUPRAVENTRICULAR COMPLEXES ARE NO LONGER PRESENT Confirmed by Iona Simon ([id number]) on 11/05/2018 1:09:46 PM Referred By: Confirmed By:Iona Simon
--- NOTE | 2018-11-05 16:01 | PN ---
Progress Note (short form) - Note Progress Note: SUBJECTIVE: Complains of R hip/Shoulder discomfort. Reports HI on mechanical fall but no LOC. OBJECTIVE: Afebrile, Hemodynamicaly Stable. Last Vital Signs Temp Pulse Resp BP Pulse Ox 98.1 F 82 20 114/56 L 96 11/05/18 15:21 11/05/18 15:21 11/05/18 15:21 11/05/18 15:21 11/05/18 15:21 HEENT - Atraumatic, normocephalic. Heart - S1, S2, RRR Lungs - clear to auscultation Abdomen - Soft, non-tender. Bowel Sounds normal. Extremities - no edema, no calf tenderness. Neuro - AAO x 3. tone/Power normal all 4 extremities. MS - No joint swelling/tenderness. Good ROM. Laboratory Results - last 24 hr 11/04/18 11/04/18 11/04/18 20:22 20:22 20:22 WBC 9.9 RBC 5.28 H Hgb 12.1 Hct 38.6 MCV 73.2 L MCH 23.0 L MCHC 31.4 L RDW 16.4 H Plt Count 261 MPV 7.7 Absolute Neuts (auto) 6.1 Neutrophils % 61.7 Lymphocytes % 26.7 Monocytes % 9.4 Eosinophils % 1.7 Basophils % 0.5 Nucleated RBC % 0 PT with INR 12.40 INR 1.05 PTT (Actin FS) 31.2 Sodium Potassium Chloride Carbon Dioxide Anion Gap BUN Creatinine Est GFR (CKD-EPI)AfAm Est GFR (CKD-EPI)NonAf POC Glucometer Random Glucose Calcium Magnesium 1.8 Total Bilirubin AST ALT Alkaline Phosphatase Creatine Kinase 96 Troponin I < 0.02 Total Protein Albumin Urine Color Urine Appearance Urine pH Ur Specific [place] Urine Protein Urine Glucose (UA) Urine Ketones Urine Blood Urine Nitrite Urine Bilirubin Urine Urobilinogen Ur Leukocyte Esterase Urine WBC (Auto) Urine RBC (Auto) Urine Casts (Auto) U Epithel Cells (Auto) Urine Bacteria (Auto) Blood Type Antibody Screen 11/04/18 11/05/18 11/05/18 20:22 01:00 06:29 WBC RBC Hgb Hct MCV MCH MCHC RDW Plt Count MPV Absolute Neuts (auto) Neutrophils % Lymphocytes % Monocytes % Eosinophils % Basophils % Nucleated RBC % PT with INR INR PTT (Actin FS) Sodium 139 Potassium 5.0 Chloride 104 Carbon Dioxide 28 Anion Gap 6 L BUN 14.4 Creatinine 0.7 Est GFR (CKD-EPI)AfAm 101.74 Est GFR (CKD-EPI)NonAf 87.78 POC Glucometer 137 Random Glucose 112 H Calcium 9.2 Magnesium Total Bilirubin 0.6 AST 37 ALT 23 Alkaline Phosphatase 81 Creatine Kinase Troponin I Total Protein 7.1 Albumin 3.6 Urine Color Yellow Urine Appearance Cloudy Urine pH 5.0 Ur Specific [place] 1.022 Urine Protein Negative Urine Glucose (UA) Negative Urine Ketones Negative Urine Blood Negative Urine Nitrite Negative Urine Bilirubin Negative Urine Urobilinogen 0.2 Ur Leukocyte Esterase 2+ H Urine WBC (Auto) 27 Urine RBC (Auto) 1 Urine Casts (Auto) 9 U Epithel Cells (Auto) 5.4 Urine Bacteria (Auto) 220.2 Blood Type Antibody Screen 11/05/18 11/05/18 09:20 13:00 WBC RBC Hgb Hct MCV MCH MCHC RDW Plt Count MPV Absolute Neuts (auto) Neutrophils % Lymphocytes % Monocytes % Eosinophils % Basophils % Nucleated RBC % PT with INR INR PTT (Actin FS) Sodium Potassium Chloride Carbon Dioxide Anion Gap BUN Creatinine Est GFR (CKD-EPI)AfAm Est GFR (CKD-EPI)NonAf POC Glucometer 109 Random Glucose Calcium Magnesium Total Bilirubin AST ALT Alkaline Phosphatase Creatine Kinase Troponin I Total Protein Albumin Urine Color Urine Appearance Urine pH Ur Specific [place] Urine Protein Urine Glucose (UA) Urine Ketones Urine Blood Urine Nitrite Urine Bilirubin Urine Urobilinogen Ur Leukocyte Esterase Urine WBC (Auto) Urine RBC (Auto) Urine Casts (Auto) U Epithel Cells (Auto) Urine Bacteria (Auto) Blood Type A POSITIVE Antibody Screen Negative Current Medications Generic Name Dose Route Start Last Admin Trade Name Freq PRN Reason Stop Dose Admin Albuterol Sulfate 2 puff 11/05/18 03:31 Ventolin Hfa Inhaler - IH Q4H PRN SHORT OF BREATH/WHEEZING Aspirin 81 mg 11/05/18 10:00 11/05/18 09:35 Ecotrin - PO 81 mg DAILY MARIE Administration Atorvastatin Calcium 10 mg 11/05/18 22:00 Lipitor - PO HS [facility] Budesonide/Formoterol Fumarate 2 puff 11/05/18 10:00 11/05/18 09:36 Symbicort 80/4.5mcg - IH Not Given BID [facility] Clopidogrel Bisulfate 75 mg 11/05/18 10:00 08/04/19 09:35 Plavix - PO 75 mg DAILY MARIE Administration Docusate Sodium 100 mg 11/05/18 10:00 11/05/18 09:35 Colace - PO 100 mg DAILY MARIE Administration Duloxetine HCl 20 mg 11/05/18 10:00 11/05/18 09:35 Cymbalta - PO 20 mg DAILY MARIE Administration Gabapentin 400 mg 11/05/18 03:31 Neurontin - PO Q8H PRN PAIN LEVEL 6-10 Insulin Aspart 1 vial 11/05/18 07:00 11/05/18 13:12 Novolog Vial Sliding Scale - SQ Not Given ACHS [facility] Protocol Isosorbide Mononitrate 30 mg 11/05/18 22:00 Imdur - PO HS [facility] Isosorbide Mononitrate 60 mg 11/05/18 10:00 11/05/18 09:35 Imdur - PO 60 mg DAILY MARIE Administration Lisinopril 10 mg 11/05/18 10:00 11/05/18 09:35 Prinivil PO 10 mg DAILY [facility] Administration Metoprolol Succinate 25 mg 11/05/18 10:00 11/05/18 09:35 Toprol Xl - PO 25 mg DAILY MARIE Administration Ranitidine HCl 150 mg 11/05/18 10:00 11/05/18 09:35 Zantac - PO 150 mg BID [facility] Administration Torsemide 20 mg 11/05/18 10:00 11/05/18 09:35 Demadex - PO 20 mg DAILY MARIE Administration Home Medications Medication Instructions Recorded Aspirin Coated [Ecotrin -] 81 mg PO DAILY 08/09/13 Docusate Sodium [Colace -] 100 mg PO DAILY 08/09/13 Acetaminophen [Tylenol .Regular 650 mg PO Q6H PRN #0 tablet 05/17/15 Strength -] Albuterol Sulfate [Proair Hfa -] 1 inh PO ASDIR PRN 90 Days 05/17/15 hfa.aer.ad Budesonide/Formeterol Fumarate 2 inh IH BID 90 Days inhaler 05/17/15 [SYMBICORT 80/4.5mcg -] Clopidogrel Bisulfate [Plavix -] 75 mg PO DAILY #90 tablet 05/17/15 Folic Acid - 1 mg PO DAILY #90 tablet 05/17/15 Lisinopril [Prinivil] 10 mg PO DAILY #90 tablet 05/17/15 Metoprolol Succinate [Toprol XL -] 25 mg PO DAILY #90 tab.sr.24h 05/17/15 Torsemide 20 mg PO DAILY #90 tablet 05/17/15 metFORMIN HCL [Metformin HCl] 500 mg PO BID #180 tablet 05/17/15 Cholecalciferol (Vitamin D3) 1,000 unit PO ASDIR 01/18/17 [Vitamin D3] Duloxetine HCl [Cymbalta] 20 mg PO DAILY 01/18/17 Gabapentin 400 mg PO TID PRN 01/18/17 Isosorbide Mononitrate [Imdur -] 30 mg PO HS 01/18/17 Isosorbide Mononitrate [Imdur -] 60 mg PO DAILY 01/18/17 Metaxalone [Skelaxin] 800 mg PO PRN PRN 01/18/17 Nitroglycerin [Nitrostat] 0.4 mg SL PRN 01/18/17 Pravastatin Sodium [Pravachol] 40 mg PO HS 01/18/17 Ranitidine HCl [Zantac] 150 mg PO BID 01/18/17 Acetaminophen [Tylenol] 325 mg PO QID PRN #30 tablet 01/31/17 ASSESSMENT/PLAN 68 year old female with history of COPD, CHF, CAD s/p CABG s/p PCI/Stent x 2, HTN, pre-DM 2, presents s/p mechanical fall off stool while trying to hang curtains. Reports head injury but no LOC. Remained lying on floor for approx 4 hours before she was able to get to a phone to get help. No preceeding CP/ palpitations/lightheadedness. Lives alone, ambulates with cane. 1. HI s/p mechanical fall. CT head negative, no focal neurological signs/symptoms. Shoulder XRay - DJD CT CSpine - DJD Hip/Pelvis Xray - DJD Needs PT eval and clearance to return home. 2. Positive UA, possible UTI Received 1 dose Bactrim in ED Afebriel, hemodynamically Stable, asymptomatic. Will hold further Abx pending Urine Cx 3. CAD s/p CABG - Continue Aspirin/Plavix/BB/GEOVANNA-I/Imdur/Statin. NTG PRN 4. HTN - continue Lisinopril, toprol XL, Imdur 5. COPD - Stable, no evidence of acute exacerbation. Continue Symbicort and Albuterol PRN. 6. Pre-DM 2 - normally on metformin, will maintain on sliding scale Novolog. A1C pending. 7. CHF - Normally on Torsemide. Resumed. 8. Microcytosis, etiology unclear. No active bleeding. Will send Iron studies. DVT Px - SCDs. Heparin held for now given HI. Visit type - Emergency Visit Emergency Visit: Yes ED Registration Date: 11/04/18 Care time: The patient presented to the Emergency Department on the above date and was hospitalized for further evaluation of their emergent condition. - New Patient This patient is new to me today: Yes Date on this admission: 11/06/18 - Critical Care Critical Care patient: No - Discharge Referral Referred to [facility] Med P.C.: No
[2018-11-05] MEDS ORDERED: ATORVASTATIN CA 10 MG TABLET (FP) ONE (20:20)
[2018-11-05] MEDS ORDERED: ISOSORBIDE MONONITRATE 30 MG TAB.SR.24H (FP) PO SCH (22:00)
[2018-11-05] MEDS ORDERED: ATORVASTATIN CA 10 MG TABLET (FP) PO SCH (22:00)
[2018-11-06] MEDS: INSULIN SLIDING SCALE (NOVOLOG) 1 VIAL SQ SCH ×2 (06:55→12:36)
[2018-11-06] MEDS ORDERED: PT OWN MED DRAWER 7, Y5N ONE (09:06)
[2018-11-06] MEDS: RANITIDINE HCL 150 MG TABLET (FP) PO SCH (09:39)
[2018-11-06] MEDS: ISOSORBIDE MONONITRATE 60 MG TAB.SR.24H (FP) PO SCH (09:39)
[2018-11-06] MEDS: DULoxetine HCL 20 MG CAPSULE.DR PO SCH (09:40)
[2018-11-06] MEDS: CLOPIDOGREL BISULFATE 75 MG TABLET (FP) PO SCH (09:40)
[2018-11-06] MEDS: LISINOPRIL 10 MG TABLET (FP) PO SCH (09:40)
[2018-11-06] MEDS: metoPROLOL SUCCINATE 25 MG TAB.SR.24H (FP) PO SCH (09:40)
[2018-11-06] MEDS: DOCUSATE SODIUM 100 MG CAPSULE (FP) PO SCH (09:40)
[2018-11-06] MEDS: ASPIRIN COATED 81 MG TABLET.EC PO SCH (09:41)
[2018-11-06] MEDS: BUDESONIDE/FORMETEROL FUMARATE 80/4.5 mcg INHALER IH SCH (09:42)
[2018-11-06] MEDS: TORSEMIDE 20 MG TABLET (FP) PO SCH ×2 (09:43→09:52)
[2018-11-06] MEDS ORDERED: ACETAMINOPHEN 500 MG TABLET (FP) PO ONE (09:45)
[2018-11-06 11:03] VITALS: BP 141/63; PULSE 78; TEMP 98
--- NOTE | 2018-11-06 12:28 | PN ---
Teaching Attending Note Name of Resident: Colby De Leon ATTENDING PHYSICIAN STATEMENT I saw and evaluated the patient. I reviewed the resident's note and discussed the case with the resident. I agree with the resident's findings and plan as documented. SUBJECTIVE: Complains of some ongoing R hip/Shoulder discomfort. Reports HI on mechanical fall but no LOC. Mild headache. No visual disturbance/nausea/vomiting /limb numbness or weakness. OBJECTIVE: Afebrile, Hemodynamicaly Stable. Last Vital Signs Temp Pulse Resp BP Pulse Ox 98.0 F 78 18 141/63 96 11/06/18 10:00 11/06/18 10:00 11/06/18 10:00 11/06/18 10:00 11/05/18 21:58 HEENT - Atraumatic, normocephalic. Heart - S1, S2, RRR Lungs - clear to auscultation Abdomen - Soft, non-tender. Bowel Sounds normal. Extremities - no edema, no calf tenderness. Neuro - AAO x 3. tone/Power normal all 4 extremities. Laboratory Results - last 24 hr 11/05/18 11/05/18 11/05/18 13:00 17:28 21:00 POC Glucometer 109 104 Iron 52 TIBC 271 Iron Saturation 19 Unsaturated IBC 219 Ferritin 161.8 11/05/18 11/05/18 11/06/18 21:00 23:09 06:16 POC Glucometer 138 165 Iron 51 TIBC Iron Saturation Unsaturated IBC Ferritin 11/06/18 11:51 POC Glucometer 100 Iron TIBC Iron Saturation Unsaturated IBC Ferritin Current Medications Generic Name Dose Route Start Last Admin Trade Name Freq PRN Reason Stop Dose Admin Albuterol Sulfate 2 puff 11/05/18 03:31 Ventolin Hfa Inhaler - IH Q4H PRN SHORT OF BREATH/WHEEZING Aspirin 81 mg 11/05/18 10:00 11/06/18 09:41 Ecotrin - PO 81 mg DAILY MARIE Administration Atorvastatin Calcium 10 mg 11/05/18 22:00 11/05/18 23:35 Lipitor - PO 10 mg HS MARIE Administration Budesonide/Formoterol Fumarate 2 puff 11/05/18 10:00 11/06/18 09:42 Symbicort 80/4.5mcg - IH 2 puff BID MARIE Administration Clopidogrel Bisulfate 75 mg 11/05/18 10:00 11/06/18 09:40 Plavix - PO 75 mg DAILY MARIE Administration Docusate Sodium 100 mg 11/05/18 10:00 11/06/18 09:40 Colace - PO 100 mg DAILY MARIE Administration Duloxetine HCl 20 mg 11/05/18 10:00 11/06/18 09:40 Cymbalta - PO 20 mg DAILY MARIE Administration Gabapentin 400 mg 11/05/18 03:31 Neurontin - PO Q8H PRN PAIN LEVEL 6-10 Insulin Aspart 1 vial 11/05/18 07:00 11/06/18 06:55 Novolog Vial Sliding Scale - SQ 2 units ACHS MARIE Administration Protocol Isosorbide Mononitrate 30 mg 11/05/18 22:00 11/05/18 23:35 Imdur - PO 30 mg HS MARIE Administration Isosorbide Mononitrate 60 mg 11/05/18 10:00 11/06/18 09:39 Imdur - PO 60 mg DAILY MARIE Administration Lisinopril 10 mg 11/05/18 10:00 11/06/18 09:40 Prinivil PO 10 mg DAILY [facility] Administration Metoprolol Succinate 25 mg 11/05/18 10:00 11/06/18 09:40 Toprol Xl - PO 25 mg DAILY [facility] Administration Ranitidine HCl 150 mg 11/05/18 10:00 11/06/18 09:39 Zantac - PO 150 mg BID MARIE Administration Torsemide 20 mg 11/05/18 10:00 11/06/18 09:52 Demadex - PO Not Given DAILY [facility] Home Medications Medication Instructions Recorded Aspirin Coated [Ecotrin -] 81 mg PO DAILY 08/09/13 Docusate Sodium [Colace -] 100 mg PO DAILY 08/09/13 Acetaminophen [Tylenol .Regular 650 mg PO Q6H PRN #0 tablet 05/17/15 Strength -] Albuterol Sulfate [Proair Hfa -] 1 inh PO ASDIR PRN 90 Days 05/17/15 hfa.aer.ad Budesonide/Formeterol Fumarate 2 inh IH BID 90 Days inhaler 05/17/15 [SYMBICORT 80/4.5mcg -] Clopidogrel Bisulfate [Plavix -] 75 mg PO DAILY #90 tablet 05/17/15 Folic Acid - 1 mg PO DAILY #90 tablet 02/13/16 Lisinopril [Prinivil] 10 mg PO DAILY #90 tablet 05/17/15 Metoprolol Succinate [Toprol XL -] 25 mg PO DAILY #90 tab.sr.24h 05/17/15 Torsemide 20 mg PO DAILY #90 tablet 05/17/15 metFORMIN HCL [Metformin HCl] 500 mg PO BID #180 tablet 05/17/15 Cholecalciferol (Vitamin D3) 1,000 unit PO ASDIR 01/18/17 [Vitamin D3] Duloxetine HCl [Cymbalta] 20 mg PO DAILY 01/18/17 Gabapentin 400 mg PO TID PRN 01/18/17 Isosorbide Mononitrate [Imdur -] 30 mg PO HS 01/18/17 Isosorbide Mononitrate [Imdur -] 60 mg PO DAILY 01/18/17 Metaxalone [Skelaxin] 800 mg PO PRN PRN 01/18/17 Nitroglycerin [Nitrostat] 0.4 mg SL PRN 01/18/17 Pravastatin Sodium [Pravachol] 40 mg PO HS 01/18/17 Ranitidine HCl [Zantac] 150 mg PO BID 01/18/17 Acetaminophen [Tylenol] 325 mg PO QID PRN #30 tablet 01/31/17 ASSESSMENT/PLAN 68 year old female with history of COPD, CHF, CAD s/p CABG s/p PCI/Stent x 2, HTN, pre-DM 2, presents s/p mechanical fall off stool while trying to hang curtains. Reports head injury but no LOC. Remained lying on floor for approx 4 hours before she was able to get to a phone to get help. No preceding CP/ palpitations/lightheadedness. Lives alone, ambulates with cane. 1. HI s/p mechanical fall. CT head negative, no focal neurological signs/symptoms. Repeat CT head in 24 hours also negative. Shoulder XRay - DJD CT CSpine - DJD Hip/Pelvis Xray - DJD PT eval and clearance to return home. 2. Positive UA, UCx < 40,000 CFU LFNB Received 1 dose Bactrim in ED Afebrile, Hemodynamically Stable, asymptomatic. No further Abx required. 3. CAD s/p CABG - Continue Aspirin/Plavix/BB/GEOVANNA-I/Imdur/Statin. NTG PRN 4. HTN - continue Lisinopril, Toprol XL, Imdur 5. COPD - Stable, no evidence of acute exacerbation. Continue Symbicort and Albuterol PRN. 6. Pre-DM 2 - normally on metformin, will maintain on sliding scale Novolog. A1C pending. 7. CHF - Normally on Torsemide. Resumed. 8. Microcytosis, etiology unclear. No active bleeding. Iron studies normal. for out-patient follow up. Medically stable for discharge home once evaluated and cleared by PT.
--- NOTE | 2018-11-06 18:43 | DS ---
Physical Exam: SUBJECTIVE: 68 y/o F w PMH COPD, CHF, CAD s/p CABG (2 stents on ASA and Plavix) , HTN, pre-diabetes, admitted for observatoin and repeat imaging s/p mechanical fall, seen at bedside on KEITH 2. Pt c/o continuing MCKAY and RIGHT sided body ache. Pt reports these symptoms have been present since the fall. Pt was hanging curtains, over-reached, fell and bumped the LEFT side of her forehead, and landed on her RIGHT shoulder and hip. MCKAY is on LEFT side, dull, throbbing, 4/10 and associated with fall. Reports ache in RIGHT shoulder and RIGHT hip; better with rest, dull/ache character, and assoc. w fall. Pt denies LOC. Pt denies NVFD. Pt denies SOB and CP. OBJECTIVE: Vital Signs Temp Pulse Resp BP Pulse Ox 98.0 F 78 18 141/63 96 11/06/18 10:00 11/06/18 10:00 11/06/18 10:00 11/06/18 10:11/05/18 21:58 PHYSICAL EXAM GENERAL: The patient is awake, alert, and fully oriented, in no acute distress. HEAD: Normal with 4cm, linear, closed, healed laceration on LEFT glabella EYES: NAHEED, EOMI, sclera anicteric, conjunctiva clear. ENT: Ears normal, nares patent, oropharynx clear without exudates, moist mucous membranes. NECK: Trachea midline, full range of motion, supple. LUNGS: Breath sounds equal, clear to auscultation bilaterally, no wheezes, no crackles, no accessory muscle use. HEART: Regular rate and rhythm, S1, S2 without murmur, rub or gallop. ABDOMEN: Soft, nontender, nondistended, normoactive bowel sounds, no guarding, no rebound, no hepatosplenomegaly, no masses. EXTREMITIES: 2+ pulses, warm, well-perfused, no edema. NEUROLOGICAL: Cranial nerves II through XII grossly intact. Normal speech, gait not observed. PSYCH: Normal mood, normal affect. SKIN: Warm, dry, normal turgor, no rashes or lesions noted. LABS Laboratory Results - last 24 hr 11/05/18 11/05/18 11/05/18 21:00 21:00 23:09 POC Glucometer 138 Iron 52 51 TIBC 271 Iron Saturation 19 Unsaturated IBC 219 Ferritin 161.8 11/06/18 11/06/18 06:16 11:51 POC Glucometer 165 100 Iron TIBC Iron Saturation Unsaturated IBC Ferritin HOSPITAL COURSE: 68 y/o F w PMH COPD, CHF, CAD s/p CABG s/p PCI/Stent x 2, HTN, pre-DM 2, presents s/p mechanical fall off stool while trying to hang curtains. (+) Head trauma, (-) LOC. Pt laid on RIGHT lateral decibitus for 4 hours prior to help. No preceding CP/palpitations/lightheadedness. Date of Admission:11/04/18 # Cranial trauma s/p mechanical fall - CT head negative - NO focal neurological signs/symptoms - Repeat CT head in 24 hours also NEGATIVE - Shoulder x-ray (+) DJD - CT CSpine (+) DJD - Hip/Pelvis x-ray (+) DJD - PT evaluation demonstrates good ambulation and safe to return home # Asymptomatic UTI - (+) UA - (+) UCx < 40,000 CFU LFNB - Received 1 dose Bactrim in ED - Afebrile, Hemodynamically Stable, asymptomatic. - No further abx required # CAD s/p CABG - Continue current regimen - Aspirin/Plavix/BB/GEOVANNA-I/Imdur/Statin. NTG PRN # HTN - Continue current regimen - Lisinopril, Toprol XL, Imdur # COPD - Stable - No evidence of acute exacerbation - Continue current regimen - Symbicort and albuterol PRN. # Pre-DM 2 - Previously on metformin - Will maintain on ISS, Novolog - A1C pending. # CHF - Continue current regimen - Torsemide # Microcytosis - Etiology unclear - No active bleeding - Fe studies normal - F/u out-patient # F/E/N - No standing fluids - Diabetic diet # DVT prophylaxis - Regular ambulation # Dispo - Full code - D/c to home Date of Discharge: 11/06/18 IMAGING [address] HEAD w/o contrast CT scan of the brain C-. Comparison study CT brain December 01, 2018 Serial axial images of the brain were obtained from foramen magnum to the cranial vertex without intravenous contrast with coronal, sagittal reconstruction. The CSF spaces are age-appropriate. There is no evidence of acute subarachnoid hemorrhage, acute intra-axial or extra-axial fluid collection consistent with subdural or epidural hematoma. No mass effect, midline shift, acute ischemic changes, herniation or edema is present. Normal hogan matter white matter differentiation. The cortical sulci, sylvian fissures, perimesencephalic cisterns are not effaced. Examination of the bone windows show no fracture. The visualized paranasal sinuses and mastoid air cells are clear. Impression: No evidence of acute intracranial hemorrhage, edema, midline shift, mass effect, or skull fracture. No CT evidence of acute territorial infarction. [address] SHOULDER LEFT 2 views of the left shoulder reveal arthritic changes with no sign of fracture or subluxation and no sign of blastic or lytic changes. There are sternal sutures and clips. An acute process is not seen. If symptoms persist, further imaging may be of help. CT SHOULDER RIGHT 2 views of the left shoulder reveals sternal sutures, coarse lung changes, clips by the right scapula and anchors in the humeral head. An acute fracture or subluxation is not seen. There are some arthritic changes. The arthritic changes have increased slightly since 06/04/2008. Correlation recommended. CXR - SHOULDER AND PELVIS An AP view of the pelvis and 2 views of the right hip reveal symmetrical hips with some minimal arthritic changes, patent SI joints, scoliosis, intact pelvic bones, urine filled bladder and pelvic phlebolith. There is no sign of fracture or subluxation and no sign of blastic or lytic changes. If symptoms persist, further imaging may be of help. A single AP view of the chest reveals clear lungs, sternal sutures and clips, right shoulder clips and evidence of right humeral surgery. There is no sign of infiltrate or failure. There is a prominent mediastinum. The angles are sharp. The soft tissues are intact. Since 07/21/2017, there is no change of an adverse nature. CT HEAD Sequential axial images were obtained from the base of the skull to the vertex. There is no evidence of acute intracranial hemorrhage, mass lesions or infarctions. There is a mild degree of diffuse cerebral atrophy with sulcal widening and ventricular dilatation. The visualized paranasal sinuses and mastoid air cells are clear. There is no evidence of fracture or acute bony pathology. IMPRESSION: No evidence of acute intracranial pathology. Dr. Colby De Leon MD Minutes to complete discharge: 40 Discharge Summary Reason For Visit: CLOSED HEAD INJURY/FALL Condition: Stable - Instructions Diet, Activity, Other Instructions: Your visit You were admitted to the hospital because you had a fall. CAT scan of the head done and were unremarkable. You were evaluated by physical therapy and recommended the use of a rolling walker. Medications Please continue your home medications. Follow-up Please follow up with your primary care doctor in 1 week. Additional info Please call 911 or go to the ED if with any worsening fever, chills, headache, dizziness, chest pain, shortness of breath, belly pain, diarrhea, or any new concerns noted. Referrals: Flores Christiansen [Primary Care Provider] - Disposition: HOME - Home Medications Comprehensive Discharge Medication List: Ambulatory Orders Aspirin Coated [Ecotrin -] 81 mg PO DAILY 08/09/13 Docusate Sodium [Colace -] 100 mg PO DAILY 08/09/13 Acetaminophen [Tylenol .Regular Strength -] 650 mg PO Q6H PRN #0 tablet Albuterol Sulfate [Proair Hfa -] 1 inh PO ASDIR PRN 90 Days hfa.aer.ad Budesonide/Formeterol Fumarate [SYMBICORT 80/4.5mcg -] 2 inh IH BID 90 Days inhaler 05/17/15 Clopidogrel Bisulfate [Plavix -] 75 mg PO DAILY #90 tablet 05/17/15 Folic Acid - 1 mg PO DAILY #90 tablet 05/17/15 Lisinopril [Prinivil] 10 mg PO DAILY #90 tablet 05/17/15 Metoprolol Succinate [Toprol XL -] 25 mg PO DAILY #90 tab.sr.24h 05/17/15 Torsemide 20 mg PO DAILY #90 tablet 05/17/15 metFORMIN HCL [Metformin HCl] 500 mg PO BID #180 tablet 05/17/15 Cholecalciferol (Vitamin D3) [Vitamin D3] 1,000 unit PO ASDIR 01/18/17 Duloxetine HCl [Cymbalta] 20 mg PO DAILY 01/18/17 Gabapentin 400 mg PO TID PRN 01/18/17 Isosorbide Mononitrate [Imdur -] 30 mg PO HS 01/18/17 Isosorbide Mononitrate [Imdur -] 60 mg PO DAILY 01/18/17 Metaxalone [Skelaxin] 800 mg PO PRN PRN 01/18/17 Nitroglycerin [Nitrostat] 0.4 mg SL PRN 01/18/17 Pravastatin Sodium [Pravachol] 40 mg PO HS 01/18/17 Ranitidine HCl [Zantac] 150 mg PO BID 01/18/17 Walker [Ultra-Light Rollator] 1 each MC DAILY #1 each 11/06/18 This patient is new to me today: Yes Date on this admission: 11/06/18 Emergency Visit: No Critical Care patient: No - Discharge Referral Referred to [facility] Med [facility].C.: No ATTENDING PHYSICIAN STATEMENT I saw and evaluated the patient. I reviewed the resident's note and discussed the case with the resident. I agree with the resident's findings and plan as documented. SUBJECTIVE: OBJECTIVE: ASSESSMENT AND PLAN:
== END 2018-11-06 13:17 | disposition home or self-care (01) ==
LOC: JER 19:26 → JERBED 23:28 → J7W 11-05 23:03
PROVIDERS: ADMIT Internal Medicine
PROC: 3E033NZ Introduction of Analgesics, Hypnotics, Sedatives into Peripheral Vein, Percutaneous Approach (ICD-10-PCS; principal; 2018-11-04)
PROC: 3E0F7GC Introduction of Other Therapeutic Substance into Respiratory Tract, Via Natural or Artificial Opening (ICD-10-PCS; 2018-11-04)
DX: Z04.3 Encounter for examination and observation following other accident (principal); S09.90XA Unspecified injury of head, initial encounter; I11.0 Hypertensive heart disease with heart failure; E78.5 Hyperlipidemia, unspecified; E11.9 Type 2 diabetes mellitus without complications; I50.9 Heart failure, unspecified; I25.10 Atherosclerotic heart disease of native coronary artery without angina pectoris; I45.10 Unspecified right bundle-branch block; J44.9 Chronic obstructive pulmonary disease, unspecified; K21.9 Gastro-esophageal reflux disease without esophagitis; R71.8 Other abnormality of red blood cells; N39.0 Urinary tract infection, site not specified; Z95.5 Presence of coronary angioplasty implant and graft; Z79.84 Long term (current) use of oral hypoglycemic drugs; Z88.5 Allergy status to narcotic agent; Z79.02 Long term (current) use of antithrombotics/antiplatelets; Z95.1 Presence of aortocoronary bypass graft; Z79.82 Long term (current) use of aspirin; Z88.0 Allergy status to penicillin; Z88.6 Allergy status to analgesic agent; W07.XXXA Fall from chair, initial encounter; Y93.E9 Activity, other interior property and clothing maintenance; Y92.009 Unspecified place in unspecified non-institutional (private) residence as the place of occurrence of the external cause
CPT/HCPCS: 36415; 70450-TC; 71045-TC-FY; 72125-TC; 73030-TC-LT-FY; 73030-TC-RT-FY; 73523-TC-FY; 80053; 81003; 82550; 82728; 82962; 83540; 83550; 83735; 84484; 85025; 85610; 85730; 86850; 86900; 86901; 87086; 87186; 93005; 93010; 94640; 96374; 97116-GP; 97161-GP; 99285-25; G0378; J0131

== ENCOUNTER 2019-03-03 12:55 | Emergency (ER) | payer OTHER, BC ==
[2019-03-03 13:26] VITALS: BMI 36.3
[2019-03-03] MEDS ORDERED: ALBUTEROL SO4 2.5/IPRATROPIUM 0.5 INH SOL 3 ML VIAL.NEB. NEB ONE ×2 (14:23→14:49)
[2019-03-03] MEDS ORDERED: methylPREDNISolone NA SUCC 125 MG/2 ML VIAL IVPB ONE (14:23)
[2019-03-03] MEDS ORDERED: methylPREDNISolone NA SUCC 125 MG/2 ML VIAL ONE (14:49)
--- NOTE | 2019-03-03 14:52 | PDOC ---
Attending Attestation - Resident Resident Name: Sarah Burger - ED Attending Attestation I have performed the following: I have examined & evaluated the patient, The case was reviewed & discussed with the resident, I agree w/resident's findings & plan - HPI HPI: 03/03/19 15:02 69 y/o female with PMH of COPD, CHF, CAD s/p CABG (2 stents on ASA and Plavix), HTN, pre-diabetes, NED on nocturnal CPAP Presenting with cough and SOB. X 2 weeks Productive yellow cough Subjective chills Midsternal chest tightness, nonexertional, feels like congestion in her chest Decreased PO intake/ Lightheadedness No sick contacts or travel. 03/03/19 15:58 - Physicial Exam PE: 03/03/19 15:01 Agree with the resident's HPI and PE as documented in the electronic medical record. NAD, well appearing, EOMI, PERRL, nl conjunctiva, anicteric; neck supple. lungs clear, transmitted upper airway sounds inspiratory and expiratory phase, RRR, no murmur, anterior chest sternotomy scar, s/p port scar. abdomen soft nontender. obese. no rebound, guarding. Back nontender. SCHMITT x4, no focal neuro deficits. No peripheral edema. normal color for ethnicity, WWP. no calf tenderness. 03/04/19 13:01 - Medical Decision Making 03/03/19 15:02 Vital Signs Temp Pulse Resp BP Pulse Ox 98.3 F 66 18 135/79 99 03/03/19 13:18 03/03/19 13:18 03/03/19 13:18 03/03/19 13:18 03/03/19 13:18 DDx SOB: ACS, PE, PTX, CHF, COPD exac, pulmonary edema, pleurisy, pneumonia, viral syndrome. effusion. anemia, electrolyte/metabolic derangements. Considered but clinically doubt based on HPI and PE: Low suspicion for pulmonary embolism or dissection. VS reviewed, wnl. normotensive, no fever, breathing comfortable, sp O2 99% on RA. EKG normal sinus rhythm, no interval abnormalities, narrow QRS, ST and T wave segments and morphology normal. Nonspecific T wave abnormalities, unchanged from prior cxr clear unremarkable; Chest x-ray with mild cardiomegaly, sternotomy wires in place, mediastinum normal, clips seen, no definitive consolidation, no significant evidence of pulmonary vascular congestion some blunting at the costophrenic angles but similar to her previous. similar to prior cxr. labs wnl, lytes wnl. trop neg, bnp also neg - unlikely chf or ACS or cardiac flu test neg given duoneb, steroids, reassess pocus sono with A lines, bilateral lung sliding, normal EF on visual estimation , RV< LV; very small/trace pericardial effusion, dry lungs, c/w more COPD. Pt to be discharged in stable condition. Patient and family made aware of clinical impression, treatment recommendations and disposition plan, return precautions discussed (including but not limited to new or persistent/worsening symptoms, pain, fevers, or signs of infection, chest pain, respiratory distress , inability to tolerate oral intake, dehydration, syncope, or neurologic changes ). Follow up with PMD and/or specialist as recommended, follow up information provided, take medications as instructed for duration of time. continue with supportive care, avoid triggers and precipitants. All questions answered to patient's satisfaction and expressed understanding and comfort with this. At the time of discharge, the patient is alert, clinically improved, tolerating po and verbalizes understanding of instructions, satisfied with the care received and felt comfortable with the plan. Patient does not suffer from an acute life- threatening medical condition at this time and is safe for outpatient follow- up. 03/03/19 15:58 03/03/19 16:29 03/03/19 16:29 Heart Score/ECG Review #1 ECG reviewed & interpreted by me at: 14:35 General ECG Interpretation: Sinus Rhythm, Normal Rate, Normal Intervals Compared to previous ECG there are: No significant change 03/03/19 14:51 EKG normal sinus rhythm at 70 bpm, no interval abnormalities, narrow QRS, ST and T wave segments and morphology normal. Nonspecific T wave abnormalities
--- NOTE | 2019-03-03 15:05 | PDOC ---
History of Present Illness - General Stated Complaint: COUGH/ASTHMA Time Seen by Provider: 03/03/19 13:32 - History of Present Illness Initial Comments: 03/03/19 14:55 HPI: 69 y/o F with hx of COPD, CHF, DM, CAD s/p CABGx2 and stents on ASA/plavix, HTN , HLD presenting with SOB. She states she had a cold about a month ago that never fully resolved. She has had intermittent episodes of SOB. She states her SOB worsened over the past 2 weeks and got even worse last night. States she was short of breath at rest and was not able to sleep due to SOB. She attempted albuterol nebs, CPAP, symbicort with minimal relief. She also reports a cough over the past month that is intermittently productive; this morning it was yellow productive sputum. She also reports chills and misternal chest tightness that is non radiating, non exertional and non pleuritic but reports it feels like her chest is congested. She denies fever, n/v, abd pain, dysuria, syncope, sick contacts, travel, prolonged amount of time in car/plane. PMHx: as noted above ROS: as noted SHx: Denies tobacco use; occasional alcohol use; no rec drugs Allergies: morphine, codeine ROS: GENERAL/CONSTITUTIONAL: +chills. No weakness. HEAD, EYES, EARS, NOSE AND THROAT: No change in vision. No ear pain or discharge. No sore throat. CARDIOVASCULAR: +chest pain and shortness of breath RESPIRATORY: +cough; no wheezing, or hemoptysis. GASTROINTESTINAL: No nausea, vomiting, diarrhea or constipation. GENITOURINARY: No dysuria, frequency, or change in urination. MUSCULOSKELETAL: No joint or muscle swelling or pain. No neck or back pain. SKIN: No rash NEUROLOGIC: No headache, vertigo, loss of consciousness, or change in strength/ sensation. ENDOCRINE: No increased thirst. No abnormal weight change HEMATOLOGIC/LYMPHATIC: No anemia, easy bleeding, or history of blood clots. ALLERGIC/IMMUNOLOGIC: No hives or skin allergy. PE: GENERAL: Awake, alert, and fully oriented, no acute distress HEAD: No signs of trauma, normocephalic, atraumatic EYES: EOMI, sclera anicteric, conjunctiva clear ENT: Auricles normal inspection, hearing grossly normal, nares patent, oropharynx clear without exudates. Moist mucosa NECK: Normal ROM, no lymphadenopathy LUNGS: No increased work of breathing, symmetrical chest rise, transmitted upper airway sounds throughout, exam limited 2/2 to poor inspiratory effort HEART: Regular rate and rhythm, normal S1 and S2, no murmurs, peripheral pulses 2+ and equal bilaterally. ABDOMEN: Soft, nondistended, nontender, normoactive bowel sounds. No guarding, no rebound. No masses. No CVAT EXTREMITIES: Normal inspection, Normal range of motion, no edema. No clubbing or cyanosis. NEUROLOGICAL: Cranial nerves II through XII grossly intact. Normal speech, normal gait, no focal sensorimotor deficits SKIN: Warm, Dry, normal turgor, no rashes or lesions noted Past History 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 History Allergies/Adverse Reactions: Allergies Allergy/AdvReac Type Severity Reaction Status Date / Time aspirin Allergy Verified 03/03/19 13:19 Penicillins Allergy Hives Verified 03/03/19 13:19 codeine [Codeine] AdvReac HALLUCINATIONS, Verified 03/03/19 13:19 DROWSY morphine AdvReac HALLUCINATI Verified 03/03/19 13:19 ONS Home Medications: Ambulatory Orders Aspirin Coated [Ecotrin -] 81 mg PO DAILY 08/09/13 Acetaminophen [Tylenol .Regular Strength -] 650 mg PO Q6H PRN #0 tablet Albuterol Sulfate [Proair Hfa -] 1 inh PO ASDIR PRN 90 Days hfa.aer.ad Budesonide/Formeterol Fumarate [SYMBICORT 80/4.5mcg -] 2 inh IH BID 90 Days inhaler 05/17/15 Clopidogrel Bisulfate [Plavix -] 75 mg PO DAILY #90 tablet 05/17/15 Folic Acid - 1 mg PO DAILY #90 tablet 05/17/15 Metoprolol Succinate [Toprol XL -] 25 mg PO DAILY #90 tab.sr.24h 05/17/15 Torsemide 20 mg PO DAILY #90 tablet 05/17/15 metFORMIN HCL [Metformin HCl] 500 mg PO BID #180 tablet 05/17/15 Cholecalciferol (Vitamin D3) [Vitamin D3] 1,000 unit PO ASDIR 01/18/17 Duloxetine HCl [Cymbalta] 20 mg PO DAILY 01/18/17 Gabapentin 400 mg PO TID PRN 01/18/17 Isosorbide Mononitrate [Imdur -] 30 mg PO HS 01/18/17 Metaxalone [Skelaxin] 800 mg PO PRN PRN 01/18/17 Nitroglycerin [Nitrostat] 0.4 mg SL PRN 01/18/17 Pravastatin Sodium [Pravachol] 40 mg PO HS 01/18/17 Ranitidine HCl [Zantac] 150 mg PO BID 01/18/17 Walker [Ultra-Light Rollator] 1 each MC DAILY #1 each 11/06/18 Albuterol 2.5/Ipratropium 0.5 [Duoneb -] 1 neb IH QID 7 Days #30 vial.neb. 03/03 Allopurinol [Zyloprim -] 100 mg PO DAILY 03/03/19 predniSONE [Deltasone -] 40 mg PO DAILY 3 Days #6 tablet 03/03/19 Anemia: Yes Asthma: Yes (inhalers at home) Cancer: No Cardiac Disorders: Yes (ANGINA, STENTS X2) CVA: No COPD: Yes CHF: Yes Dementia: No Diabetes: Yes GI Disorders: Yes (ACID REFLUX) Disorders: No HTN: Yes Hypercholesterolemia: Yes Liver Disease: No Seizures: No Thyroid Disease: No Lung CA: (COPD) - Surgical History Abdominal Surgery: No Appendectomy: No Cardiac Surgery: Yes (DOUBLE AND TRIPLE BYPASS) Cholecystectomy: No Lung Surgery: No Neurologic Surgery: No Orthopedic Surgery: Yes (rt rotator cuff repair, rt knee surgery) - Immunization History Immunization Up to Date: No - Psycho Social/Smoking Cessation Hx Smoking Status: Yes Smoking History: Smoker current status UNK Have you smoked in the past 12 months: No Number of Cigarettes Smoked Daily: 0 If you are a former smoker, when did you quit?: about 30 years ago Hx Alcohol Use: No Drug/Substance Use Hx: No Substance Use Type: None Hx Substance Use Treatment: No *Physical Exam - Vital Signs Last Vital Signs Temp Pulse Resp BP Pulse Ox 98.3 F 66 18 135/79 99 03/03/19 13:18 03/03/19 13:18 03/03/19 13:18 03/03/19 13:18 03/03/19 13:18 ED Treatment Course - LABORATORY CBC & Chemistry Diagram: 03/03/19 14:40 03/03/19 14:40 Medical Decision Making - Medical Decision Making 03/03/19 15:05 69 y/o F with hx of COPD, CHF, DM, CAD s/p CABGx2 and stents on ASA/plavix, HTN , HLD presenting with SOB over 2 weeks worsening over the past day. VSS, AF. PE with poor inspiratory effort. DDx pna, copd exacerbation, chf exacerabtion. will rule out cardiac etiology -cbc, cmp, cardiac profile, bnp, ekg, cxr, repid flu -duonebx, solumedrol 03/03/19 16:34 labs wnl trop negative cxr without acute findings ekg without changes Patient appears more comfortable Patient ambulating without respiratory distress and sats 97% given improvement as well as negative findings, will plan to DC patient with return pcxns discussed findings with patient and return pcxns; she understands information and is comfortable with DC home with pcp followup Discharge - Discharge Information Problems reviewed: Yes Clinical Impression/Diagnosis: SOB (shortness of breath), COPD exacerbation Condition: Improved Disposition: HOME - Additional Discharge Information Prescriptions: Albuterol 2.5/Ipratropium 0.5 [Duoneb -] 1 neb IH QID 7 Days #30 vial.neb. predniSONE [Deltasone -] 40 mg PO DAILY 3 Days #6 tablet - Follow up/Referral - Patient Discharge Instructions Patient Printed Discharge Instructions: DI for Chronic Obstructive Pulmonary Disease Additional Instructions: Return to the ED if there is concern for new or worsening symptoms including worsening shortness of breath, severe chest pain, fainting, fever Please followup with you PCP within 48 hours for further evaluation Please take your nebulizer treatment every 6hrs as needed for shortness of breath. Please take the prednisone that was prescribed 40mg daily for 3 days. You may continue your other meds as prescribed - Post Discharge Activity
[2019-03-03 15:07] LABS: BASO % 0.4 % (0-2.0); EOS % 1.8 % (0-4.5); HEMATOCRIT 37.8 % (32.4-45.2); HEMOGLOBIN 11.9 GM/dL (10.7-15.3); LYMPH % 29.3 % (8-40); MCH 23.2 pg (25.7-33.7); MCHC 31.5 g/dl (32.0-36.0); MEAN CELL VOLUME 73.5 fl (80-96); MEAN PLT VOLUME 7.9 fl (7.5-11.1); NEUT % 58.5 % (42.8-82.8); PLATELET COUNT 291 K/MM3 (134-434); RBC 5.14 M/mm3 (3.60-5.2); RDW 15.6 % (11.6-15.6); WHITE BLOOD COUNT 8.2 K/mm3 (4.0-10.0)
[2019-03-03 15:35] LABS: ALBUMIN 3.5 g/dl (3.4-5.0); ALK PHOS 92 U/L (45-117); ANION GAP 8 MMOL/L (8-16); BILIRUBIN,TOTAL 0.3 mg/dL (0.2-1); BLOOD UREA NITROGEN 10.4 mg/dL (7-18); CALCIUM 9.4 mg/dL (8.5-10.1); CHLORIDE 106 mmol/L (98-107); CO2 27 mmol/L (21-32); CREATININE 0.7 mg/dL (0.55-1.3); GLUCOSE,RANDOM 92 mg/dL (74-106); POTASSIUM 3.8 mmol/L (3.5-5.1); SGOT/AST 18 U/L (15-37); SGPT/ALT 22 U/L (13-61); SODIUM 142 mmol/L (136-145); TOT PROT 7.2 g/dl (6.4-8.2)
[2019-03-03 16:48] VITALS: BP 134/45; PULSE 69; TEMP 97.8
--- NOTE | 2019-03-05 10:46 | EKG ---
Test Reason : Blood Pressure : / mmHG Vent. Rate : 070 BPM Atrial Rate : 070 BPM P-R Int : 194 ms QRS Dur : 092 ms QT Int : 402 ms P-R-T Axes : 047 032 059 degrees QTc Int : 434 ms NORMAL SINUS RHYTHM NORMAL ECG WHEN COMPARED WITH ECG OF 05-NOV-2018 00:17, NO SIGNIFICANT CHANGE WAS FOUND Confirmed by JACY TOMLINSON MD ([id number]) on 03/05/2019 10:46:03 AM Referred By: Confirmed By:JACY TOMLINSON MD
== END 2019-03-03 17:37 | disposition home or self-care (01) ==
LOC: JER 12:55
PROC: 3E0F7GC Introduction of Other Therapeutic Substance into Respiratory Tract, Via Natural or Artificial Opening (ICD-10-PCS; principal; 2019-03-03)
PROC: 3E0333Z Introduction of Anti-inflammatory into Peripheral Vein, Percutaneous Approach (ICD-10-PCS; 2019-03-03)
DX: J44.1 Chronic obstructive pulmonary disease with (acute) exacerbation (principal); I25.10 Atherosclerotic heart disease of native coronary artery without angina pectoris; I11.0 Hypertensive heart disease with heart failure; Z95.1 Presence of aortocoronary bypass graft; Z95.5 Presence of coronary angioplasty implant and graft; I50.9 Heart failure, unspecified; E11.9 Type 2 diabetes mellitus without complications; Z79.84 Long term (current) use of oral hypoglycemic drugs; J45.998 Other asthma; E78.5 Hyperlipidemia, unspecified; K21.9 Gastro-esophageal reflux disease without esophagitis; Z88.0 Allergy status to penicillin; Z88.5 Allergy status to narcotic agent; Z88.6 Allergy status to analgesic agent; Z79.02 Long term (current) use of antithrombotics/antiplatelets; Z79.82 Long term (current) use of aspirin
CPT/HCPCS: 36415; 71046-TC-FY; 80053; 82550; 82553; 83880; 84484; 85025; 87804; 93005; 93010; 94640; 96374; 99283-25

== ENCOUNTER 2019-03-08 15:13 | Inpatient (IN) | payer OTHER, BC ==
[2019-03-08] MEDS ORDERED: methylPREDNISolone NA SUCC 125 MG/2 ML VIAL IVPUSH ONE (16:02)
[2019-03-08] MEDS ORDERED: ALBUTEROL SO4 2.5/IPRATROPIUM 0.5 INH SOL 3 ML VIAL.NEB. NEB ONE ×2 (16:16→16:38)
[2019-03-08] MEDS: ALBUTEROL SO4 2.5/IPRATROPIUM 0.5 INH SOL 3 ML VIAL.NEB. NEB SCH ×2 (16:23→16:59)
[2019-03-08] MEDS ORDERED: methylPREDNISolone NA SUCC 125 MG/2 ML VIAL ONE (16:39)
--- NOTE | 2019-03-08 16:42 | PDOC ---
History of Present Illness - General Chief Complaint: Asthma Stated Complaint: ASTHMA Time Seen by Provider: 03/08/19 15:42 History Source: Patient Exam Limitations: No Limitations - History of Present Illness Initial Comments: 03/08/19 16:49 69 y/o F with PMHx of COPD, CHF, DM, HTN, HLD, CAD s/p CABGx2 and stents on ASA/ plavix, NED presenting with wheezing and SOB. Started 6d ago, associated yellow sputum productive cough, midsternal/L chest pain. Unimproved w albuterol (x2 today) and 5mg prednisone daily. Was seen in ED last month for asthma exacerbation. Denies fever, nausea/vomiting, AB pain, urinary/bowel mvmt changes. Past History 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 History Allergies/Adverse Reactions: Allergies Allergy/AdvReac Type Severity Reaction Status Date / Time aspirin Allergy Verified 03/08/19 15:21 Penicillins Allergy Hives Verified 03/08/19 15:21 codeine [Codeine] AdvReac HALLUCINATIONS, Verified 03/08/19 15:21 DROWSY morphine AdvReac HALLUCINATI Verified 03/08/19 15:21 ONS Home Medications: Ambulatory Orders Aspirin Coated [Ecotrin -] 81 mg PO DAILY 08/09/13 Acetaminophen [Tylenol .Regular Strength -] 650 mg PO Q6H PRN #0 tablet Albuterol Sulfate [Proair Hfa -] 1 inh PO ASDIR PRN 90 Days hfa.aer.ad Budesonide/Formeterol Fumarate [SYMBICORT 80/4.5mcg -] 2 inh IH BID 90 Days inhaler 05/17/15 Clopidogrel Bisulfate [Plavix -] 75 mg PO DAILY #90 tablet 05/17/15 Folic Acid - 1 mg PO DAILY #90 tablet 05/17/15 Metoprolol Succinate [Toprol XL -] 25 mg PO DAILY #90 tab.sr.24h 05/17/15 Torsemide 20 mg PO DAILY #90 tablet 05/17/15 metFORMIN HCL [Metformin HCl] 500 mg PO BID #180 tablet 05/17/15 Cholecalciferol (Vitamin D3) [Vitamin D3] 1,000 unit PO ASDIR 01/18/17 Duloxetine HCl [Cymbalta] 20 mg PO DAILY 01/18/17 Gabapentin 400 mg PO TID PRN 01/18/17 Isosorbide Mononitrate [Imdur -] 30 mg PO HS 01/18/17 Metaxalone [Skelaxin] 800 mg PO PRN PRN 01/18/17 Nitroglycerin [Nitrostat] 0.4 mg SL PRN 01/18/17 Pravastatin Sodium [Pravachol] 40 mg PO HS 01/18/17 Ranitidine HCl [Zantac] 150 mg PO BID 01/18/17 Walker [Ultra-Light Rollator] 1 each MC DAILY #1 each 11/06/18 Albuterol 2.5/Ipratropium 0.5 [Duoneb -] 1 neb IH QID 7 Days #30 vial.neb. 03/03 Allopurinol [Zyloprim -] 100 mg PO DAILY 03/03/19 predniSONE [Deltasone -] 40 mg PO DAILY 3 Days #6 tablet 03/03/19 Albuterol 0.083% Nebulizer Sil [Ventolin 0.083% Nebulizer Soln -] 1 neb NEB Q4H PRN #30 vial 03/04/19 Anemia: Yes Asthma: Yes (inhalers at home) Cancer: No Cardiac Disorders: Yes (ANGINA, STENTS X2) CVA: No COPD: Yes CHF: Yes Dementia: No Diabetes: Yes GI Disorders: Yes (ACID REFLUX) Disorders: No HTN: Yes Hypercholesterolemia: Yes Liver Disease: No Seizures: No Thyroid Disease: No Lung CA: (COPD) - Surgical History Abdominal Surgery: No Appendectomy: No Cardiac Surgery: Yes (DOUBLE AND TRIPLE BYPASS) Cholecystectomy: No Lung Surgery: No Neurologic Surgery: No Orthopedic Surgery: Yes (rt rotator cuff repair, rt knee surgery) - Immunization History Immunization Up to Date: No - Psycho Social/Smoking Cessation Hx Smoking Status: Yes Smoking History: Never smoked Have you smoked in the past 12 months: No Number of Cigarettes Smoked Daily: 0 If you are a former smoker, when did you quit?: about 30 years ago Hx Alcohol Use: No Drug/Substance Use Hx: No Substance Use Type: None Hx Substance Use Treatment: No Review of Systems - Review of Systems Constitutional: No: Chills, Fever HEENTM: No: Eye Pain, Nose Congestion, Throat Pain, Mouth Pain Respiratory: Yes: Cough, Shortness of Breath, Wheezing Cardiac (ROS): Yes: Chest Pain. No: Palpitations, Syncope ABD/GI: No: Abdominal Distended, Constipated, Diarrhea, Nausea, Vomiting : No: Burning, Dysuria, Hematuria Musculoskeletal: No: Back Pain, Neck Pain Integumentary: No: Bruising, Flushing, Lesions Neurological: No: Headache, Seizure, Tingling, Tremors Psychiatric: No: Anxiety, Depression Endocrine: No: Intolerance to Cold, Intolerance to Heat Hematologic/Lymphatic: No: Anemia, Blood Clots *Physical Exam - Vital Signs Last Vital Signs Temp Pulse Resp BP Pulse Ox 97.4 F L 76 18 174/74 H 100 03/08/19 15:24 03/08/19 15:24 03/08/19 15:24 03/08/19 15:24 03/08/19 15:24 - Physical Exam General Appearance: Yes: Nourished, Appropriately Dressed, Mild Distress HEENT: positive: EOMI, NARESH, Hearing Grossly Normal. negative: Scleral Icterus (R), Scleral Icterus (L), Rhinorrhea, Sinus Tenderness Respiratory/Chest: positive: Rhonchi, Wheezing (throghout nahomi). negative: Chest Tender, Crackles, Rales, Stridor Cardiovascular: positive: Regular Rhythm, Regular Rate, S1, S2. negative: Edema , Murmur Integumentary: positive: Normal Color Neurologic: positive: Fully Oriented, Alert, Normal Response, Responsive. negative: Sensory Deficit, Confused, Disoriented ED Treatment Course - LABORATORY CBC & Chemistry Diagram: 03/08/19 16:50 03/08/19 16:50 Medical Decision Making - Medical Decision Making 03/08/19 16:57 duonebsx3, solumedrol, 1 Mg CBC CMP trop BNP WBC 12, trop neg, BNP 200 CXR shows cardiomegaly, mid field bilateral infiltrates EKG shows NSR, HR 76, QTc 416, no ST changes --- 69 y/o F with PMHx of COPD, CHF, DM, HTN, HLD, CAD s/p CABGx2 and stents on ASA/ plavix, NED presenting with wheezing and SOB Likely COPD exacerbation 2/2 URI vs PNA (bilateral infiltrates on CXR). Low concern for ACS (neg trop, NSR EKG) vs CHF exacerbation (no BLE edema). Pt still wheezing and feeling SOB after duonebs x3, 125 solumedrol, 1 Mg, levaquin. O2sat wnl breathing RA. Admitted to m/s Dr Christiansen for complicated COPD exacerbation 2/2 URI. Discharge - Discharge Information Problems reviewed: Yes Clinical Impression/Diagnosis: COPD exacerbation Condition: Stable - Follow up/Referral - Patient Discharge Instructions - Post Discharge Activity
[2019-03-08 17:04] LABS: VENOUS PC02 50.2 mmHg (38-52); VENOUS PH 7.41 (7.31-7.41)
[2019-03-08 17:08] LABS: BASO % 0.2 % (0-2.0); EOS % 0.2 % (0-4.5); HEMATOCRIT 40.5 % (32.4-45.2); HEMOGLOBIN 12.5 GM/dL (10.7-15.3); LYMPH % 21.6 % (8-40); MCH 22.6 pg (25.7-33.7); MCHC 30.8 g/dl (32.0-36.0); MEAN CELL VOLUME 73.4 fl (80-96); MEAN PLT VOLUME 8.2 fl (7.5-11.1); MONO % 8.6 % (3.8-10.2); NEUT % 69.4 % (42.8-82.8); PLATELET COUNT 326 K/MM3 (134-434); RBC 5.52 M/mm3 (3.60-5.2); RDW 15.8 % (11.6-15.6); WHITE BLOOD COUNT 12.7 K/mm3 (4.0-10.0)
[2019-03-08 17:10] LABS: VENOUS PO2 < 49 mmHg (28-48)
[2019-03-08 17:28] LABS: INR 0.92 (0.83-1.09); PROTHROMBIN TIME (PATIENT) 10.9 SEC (9.7-13.0)
[2019-03-08 17:43] LABS: ALBUMIN 3.6 g/dl (3.4-5.0); BILIRUBIN,TOTAL 0.3 mg/dL (0.2-1); CALCIUM 9.7 mg/dL (8.5-10.1); CREATININE 0.8 mg/dL (0.55-1.3); POTASSIUM 4.1 mmol/L (3.5-5.1); TOT PROT 7.3 g/dl (6.4-8.2)
[2019-03-08] MEDS ORDERED: MAGNESIUM SULF 50% (8.12 MEQ/2 ML-1 GM VIAL) IVPB ONE (18:09)
[2019-03-08] MEDS ORDERED: MAGNESIUM SULF 50% (8.12 MEQ/2 ML-1 GM VIAL) ONE (18:25)
--- NOTE | 2019-03-08 19:20 | PDOC ---
Documentation entered by Emma Sotomayor SCRIBE, acting as scribe for Felicia Briones MD. Felicia Briones MD: This documentation has been prepared by the Светлана gordillo Nirvannie, SCRIBE, under my direction and personally reviewed by me in its entirety. I confirm that the documentation accurately reflects all work, treatment, procedures, and medical decision making performed by me. Attending Attestation - Resident Resident Name: CelestinaCaleb - ED Attending Attestation I have performed the following: I have examined & evaluated the patient, The case was reviewed & discussed with the resident, I agree w/resident's findings & plan - HPI HPI: 03/08/19 19:17 69-year-old female history of COPD CAD status post CABG and a few stents, asthma , CHF, here today complaining of worsening shortness of breath. Patient states she was seen by Dr. Jones 3 days ago at that time was started on steroids has been using inhaler at home. Today she called Dr. Jones because she felt her shortness of breath was getting worse denies any worsening leg swelling no history of PE or DVT denies any current chest pain. Patient states that she has been taking her prednisone as prescribed has been coughing up some phlegm which is yellowish in color and different for her baseline does not wear home O2 denies any other exacerbating factors. - Physicial Exam PE: 03/08/19 19:18 Awake alert no acute distress lungs are with bilateral expiratory wheezing and rhonchorous breath sounds crackles at the bases bilaterally. Heart is regular without murmurs rubs or gallops abdomen is soft and nontender skin is warm and dry there is nonpitting bilateral edema 2+ DP PT pulses neurologically patient is awake alert and oriented x3 - Medical Decision Making 03/08/19 19:18 For bronchitis and likely COPD exacerbation. Patient was given duo nebs in -[id number] female history of COPD CHF CAD status post CABG here today complaining of worsening shortness of breath. Already on steroids differential includes CHF exacerbation, anemia, infection such as pneumonia condition 1 more was given in the room she was given a bolus dose of steroids chest x-ray was obtained shows mild pulmonary vascular congestion at the bases and some questionable scaring of the left base and left heart border. Due to the change in her sputum she will be given antibiotics will be admitted for COPD exacerbation failed outpatient as she is already on steroids patient will be admitted call placed to Dr. Penn awaiting callback. Consult placed for Dr. Jones Heart Score/ECG Review #1 General ECG Interpretation: Sinus Rhythm, Normal Rate (76), Normal Intervals, No acute ischemic changes Compared to previous ECG there are: Other (RBBB, no st elevation or depression.)
[2019-03-08] MEDS ORDERED: ALBUTEROL SO4 8 GM HFA INHALER IH PRN (20:13)
[2019-03-08] MEDS ORDERED: ALBUTEROL SO4 0.083% IH SOL 2.5 MG/3 ML VIAL.NEB. NEB PRN (20:13)
[2019-03-08] MEDS ORDERED: ACETAMINOPHEN 325 MG TABLET (FP) PO PRN (20:13)
[2019-03-08] MEDS ORDERED: GABAPENTIN 400 MG CAPSULE (FP) PO PRN (20:13)
[2019-03-08] MEDS ORDERED: NITROGLYCERIN SUBLINGUAL 1/150 0.4 MG TAB SL PRN (20:15)
[2019-03-08] MEDS ORDERED: ISOSORBIDE MONONITRATE 60 MG TAB.SR.24H (FP) PO ONE (23:21)
[2019-03-08] MEDS ORDERED: ATORVASTATIN CA 10 MG TABLET (FP) ONE (23:22)
[2019-03-09] MEDS: FAMOTIDINE 20 MG TABLET PO SCH ×3 (00:14→21:40)
[2019-03-09] MEDS: ATORVASTATIN CA 10 MG TABLET (FP) PO SCH ×2 (00:14→21:40)
[2019-03-09] MEDS: ISOSORBIDE MONONITRATE 30 MG TAB.SR.24H (FP) PO SCH ×2 (00:14→21:40)
[2019-03-09] MEDS: BUDESONIDE/FORMETEROL FUMARATE 80/4.5 mcg INHALER IH SCH ×3 (01:03→21:41)
[2019-03-09] MEDS: methylPREDNISolone NA SUCC 40 MG/1 ML VIAL IVPUSH SCH ×3 (01:29→18:04)
[2019-03-09] MEDS: metFORMIN HCL 500 MG TABLET (FP) PO SCH ×2 (06:12→18:06)
--- NOTE | 2019-03-09 08:36 | HP ---
Admitting History and Physical - Primary Care Physician PCP: Flores Christiansen S - Admission Chief Complaint: cough SOB History of Present Illness: 69 y/o F with PMHx of COPD, CHF, DM, HTN, HLD, CAD s/p CABGx2 and stents on ASA/ plavix, NED presenting with wheezing and SOB. Started 1 week ago, associated yellow sputum productive cough, midsternal/L chest pain. Unimproved w albuterol puffs and 5mg prednisone daily. Was seen in ED last month for asthma exacerbation. Denies fever, nausea/vomiting, AB pain, urinary/bowel mvmt changes. History Source: Patient Limitations to Obtaining History: No Limitations 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 History Cardiovascular: Yes: CAD, HTN, Hyperlipdemia Pulmonary: Yes: COPD Renal/: Yes: Renal Inusuff Infectious Disease: Yes: Other (oral abscess) Musculoskeletal: Yes: Osteoarthritis Rheumatology: Yes: Gout Endocrine: Yes: Hyperparathyroidism - Past Surgical History Past Surgical History: Yes: CABG - Advance Directives Advance Directives: Yes: Health Care Proxy - Smoking History Smoking history: Never smoked Have you smoked in the past 12 months: No Aproximately how many cigarettes per day: 0 If you are a former smoker, when did you quit?: about 30 years ago - Alcohol/Substance Use Hx Alcohol Use: No History of Substance Use: reports: None - Social History Usual Living Arrangement: Yes: Alone Do you think of yourself as: Straight/Heterosexual ADL: Independent History of Recent Travel: No Home Medications - Allergies Allergies/Adverse Reactions: Allergies Allergy/AdvReac Type Severity Reaction Status Date / Time aspirin Allergy Verified 03/08/19 15:21 Penicillins Allergy Hives Verified 03/08/19 15:21 codeine [Codeine] AdvReac HALLUCINATIONS, Verified 03/08/19 15:21 DROWSY morphine AdvReac HALLUCINATI Verified 03/08/19 15:21 ONS - Home Medications Home Medications: Ambulatory Orders Aspirin Coated [Ecotrin -] 81 mg PO DAILY 08/09/13 Acetaminophen [Tylenol .Regular Strength -] 650 mg PO Q6H PRN #0 tablet Albuterol Sulfate [Proair Hfa -] 1 inh PO ASDIR PRN 90 Days hfa.aer.ad Budesonide/Formeterol Fumarate [SYMBICORT 80/4.5mcg -] 2 inh IH BID 90 Days inhaler 05/17/15 Clopidogrel Bisulfate [Plavix -] 75 mg PO DAILY #90 tablet 05/17/15 Folic Acid - 1 mg PO DAILY #90 tablet 05/17/15 Metoprolol Succinate [Toprol XL -] 25 mg PO DAILY #90 tab.sr.24h 05/17/15 Torsemide 20 mg PO DAILY #90 tablet 05/17/15 metFORMIN HCL [Metformin HCl] 500 mg PO BID #180 tablet 05/17/15 Cholecalciferol (Vitamin D3) [Vitamin D3] 1,000 unit PO ASDIR 01/18/17 Duloxetine HCl [Cymbalta] 20 mg PO DAILY 01/18/17 Gabapentin 400 mg PO TID PRN 01/18/17 Isosorbide Mononitrate [Imdur -] 30 mg PO HS 01/18/17 Metaxalone [Skelaxin] 800 mg PO PRN PRN 01/18/17 Nitroglycerin [Nitrostat] 0.4 mg SL PRN 01/18/17 Pravastatin Sodium [Pravachol] 40 mg PO HS 01/18/17 Ranitidine HCl [Zantac] 150 mg PO BID 01/18/17 Walker [Ultra-Light Rollator] 1 each MC DAILY #1 each 11/06/18 Albuterol 2.5/Ipratropium 0.5 [Duoneb -] 1 neb IH QID 7 Days #30 vial.neb. 03/03 Allopurinol [Zyloprim -] 100 mg PO DAILY 03/03/19 predniSONE [Deltasone -] 40 mg PO DAILY 3 Days #6 tablet 03/03/19 Albuterol 0.083% Nebulizer Sil [Ventolin 0.083% Nebulizer Soln -] 1 neb NEB Q4H PRN #30 vial 03/04/19 Family Medical History Family History: Unremarkable Review of Systems - Review of Systems Constitutional: denies: Chills, Fever Eyes: denies: Blind Spots, Blurred Vision HENT: denies: Difficult Swallowing, Epistaxis Neck: denies: Decreased ROM, Pain on Movement, Stiffness Cardiovascular: reports: Shortness of Breath. denies: Chest Pain Respiratory: reports: Cough, SOB, SOB on Exertion, Wheezing. denies: Hemoptysis , Orthopnea Gastrointestinal: denies: Abdominal Pain, Diarrhea, Nausea, Rectal Bleeding, Vomiting, Vomiting Blood Genitourinary: denies: Dysuria, Flank Pain Musculoskeletal: denies: Back Pain, Joint Swelling Neurological: denies: Change in LOC, Change in Speech, Confusion, Dizziness, Headache, Syncope, Weakness Hematology/Lymphatic: denies: Easily Bruised, Excessive Bleeding Psychiatric: denies: Altered Sleep Pattern, Anxiety, Depression, Suicidal Physical Examination Vital Signs: Vital Signs Temperature 97.8 F 03/09/19 05:55 Pulse Rate 70 03/09/19 05:55 Respiratory Rate 18 03/09/19 05:55 Blood Pressure 159/74 03/09/19 05:55 O2 Sat by Pulse Oximetry (%) 96 03/09/19 01:05 Constitutional: Yes: No Distress, Calm Eyes: Yes: Conjunctiva Clear HENT: Yes: Atraumatic Neck: Yes: Supple Cardiovascular: Yes: Regular Rate and Rhythm Respiratory: Yes: Rales, Rhonchi, Wheezes (expiratory scattered) Gastrointestinal: Yes: Soft. No: Tenderness Renal/: No: Hematuria Musculoskeletal: No: Joint Stiffness, Joint Swelling Extremities: No: Cold, Cool, Cyanosis Edema: No Integumentary: No: Rash, Venous Stasis Changes Neurological: Yes: Alert ...Motor Strength: WNL Psychiatric: Yes: Alert. No: Agitated, Suicidal Ideation Imaging - Results Chest X-ray: Report Reviewed Other: Report Reviewed Assessment/Plan 69 y/o F with PMHx of COPD, CHF, DM, HTN, HLD, CAD s/p CABGx2 and stents on ASA/ plavix, NED presenting with wheezing and SOB x 1 week associated yellow sputum productive cough, midsternal/L chest pain. Unimproved w albuterol inhalers admit with COPD exac pulm eval; IV steroids h/o ASHD: cardiology eval f/u labs d/w pt and staff
[2019-03-09 08:49] LABS: BASO % 0.1 % (0-2.0); HEMATOCRIT 40.7 % (32.4-45.2); HEMOGLOBIN 12.7 GM/dL (10.7-15.3); LYMPH % 10.5 % (8-40); MCH 22.8 pg (25.7-33.7); MCHC 31.1 g/dl (32.0-36.0); MEAN CELL VOLUME 73.1 fl (80-96); MEAN PLT VOLUME 8.3 fl (7.5-11.1); MONO % 2.9 % (3.8-10.2); NEUT % 86.5 % (42.8-82.8); PLATELET COUNT 342 K/MM3 (134-434); RBC 5.56 M/mm3 (3.60-5.2); RDW 15.7 % (11.6-15.6)
[2019-03-09 09:25] LABS: ALBUMIN 3.3 g/dl (3.4-5.0); BILIRUBIN,TOTAL 0.4 mg/dL (0.2-1); BLOOD UREA NITROGEN 17.3 mg/dL (7-18); CALCIUM 9.6 mg/dL (8.5-10.1); CREATININE 0.8 mg/dL (0.55-1.3); POTASSIUM 4.2 mmol/L (3.5-5.1); TOT PROT 7.4 g/dl (6.4-8.2)
[2019-03-09] MEDS ORDERED: PT OWN MED DRAWER 7, Y5N ONE (10:08)
[2019-03-09] MEDS: TORSEMIDE 20 MG TABLET (FP) PO SCH (10:09)
[2019-03-09] MEDS: CLOPIDOGREL BISULFATE 75 MG TABLET (FP) PO SCH (10:10)
[2019-03-09] MEDS: ALLOPURINOL 100 MG TABLET (FP) PO SCH (10:10)
[2019-03-09] MEDS: metoPROLOL SUCCINATE 25 MG TAB.SR.24H (FP) PO SCH (10:10)
[2019-03-09] MEDS: PANTOPRAZOLE 20 MG TABLET (FP) PO SCH (10:10)
[2019-03-09] MEDS: FOLIC ACID 1 MG TABLET (FP) PO SCH (10:10)
[2019-03-09] MEDS: DULoxetine HCL 20 MG CAPSULE.DR PO SCH (11:13)
--- NOTE | 2019-03-09 11:44 | EKG ---
Test Reason : Blood Pressure : / mmHG Vent. Rate : 076 BPM Atrial Rate : 076 BPM P-R Int : 178 ms QRS Dur : 100 ms QT Int : 370 ms P-R-T Axes : 054 049 048 degrees QTc Int : 416 ms NORMAL SINUS RHYTHM SEPTAL INFARCT , AGE UNDETERMINED ABNORMAL ECG WHEN COMPARED WITH ECG OF 03-MAR-2019 14:34, NO SIGNIFICANT CHANGE WAS FOUND Confirmed by ALDO LEOS MD ([id number]) on 03/09/2019 11:43:30 AM Referred By: Confirmed By:ALDO LEOS MD
--- NOTE | 2019-03-09 14:33 | CON.PULM ---
Consult Consult Specialty:: PULMONARY Referred by:: SABRNIA Reason for Consultation:: WHEEZE - History of Present Illness Chief Complaint: COUGH/WHEEZE/SOB History of Present Illness: 69 y/o F with PMHx of COPD, CHF, DM, HTN, HLD, CAD s/p CABGx2 and stents on ASA/ plavix, NED presenting with wheezing and SOB. Started 6d ago, associated yellow sputum productive cough, midsternal/L chest pain. Unimproved w albuterol (x2 today) and 5mg prednisone daily. Was seen in ED last month for asthma exacerbation. Denies fever, nausea/vomiting, AB pain, urinary/bowel mvmt changes. - History Source History Provided By: Patient, Family Member, Medical Record Limitations to Obtaining History: No Limitations 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 History [employer] WORKER: No: Alzheimer's Cardio/Vascular: Yes: CAD, HTN, Hyperlipdemia. No: AFIB Pulmonary: Yes: Asthma, COPD Gastrointestinal: No: Ascites Hepatobiliary: No: Cirrhosis Renal/: Yes: Renal Inusuff Reproductive: Yes: Postmenopausal ...: No Heme/Onc: No: Anemia Infectious Disease: Yes: Other (oral abscess) Musculoskeletal: Yes: Osteoarthritis Rheumatology: Yes: Gout Endocrine: Yes: Hyperparathyroidism - Past Surgical History Past Surgical History: Yes: CABG - Alcohol/Substance Use Hx Alcohol Use: No History of Substance Use: reports: None - Smoking History Smoking history: Never smoked Have you smoked in the past 12 months: No Aproximately how many cigarettes per day: 0 If you are a former smoker, when did you quit?: about 30 years ago - Social History ADL: Independent History of Recent Travel: No Home Medications - Allergies Allergies/Adverse Reactions: Allergies Allergy/AdvReac Type Severity Reaction Status Date / Time aspirin Allergy Verified 03/08/19 15:21 Penicillins Allergy Hives Verified 03/08/19 15:21 codeine [Codeine] AdvReac HALLUCINATIONS, Verified 03/08/19 15:21 DROWSY morphine AdvReac HALLUCINATI Verified 03/08/19 15:21 ONS - Home Medications Home Medications: Ambulatory Orders Aspirin Coated [Ecotrin -] 81 mg PO DAILY 08/09/13 Acetaminophen [Tylenol .Regular Strength -] 650 mg PO Q6H PRN #0 tablet Albuterol Sulfate [Proair Hfa -] 1 inh PO ASDIR PRN 90 Days hfa.aer.ad Budesonide/Formeterol Fumarate [SYMBICORT 80/4.5mcg -] 2 inh IH BID 90 Days inhaler 05/17/15 Clopidogrel Bisulfate [Plavix -] 75 mg PO DAILY #90 tablet 05/17/15 Folic Acid - 1 mg PO DAILY #90 tablet 05/17/15 Metoprolol Succinate [Toprol XL -] 25 mg PO DAILY #90 tab.sr.24h 05/17/15 Torsemide 20 mg PO DAILY #90 tablet 05/17/15 metFORMIN HCL [Metformin HCl] 500 mg PO BID #180 tablet 05/17/15 Cholecalciferol (Vitamin D3) [Vitamin D3] 1,000 unit PO ASDIR 01/18/17 Duloxetine HCl [Cymbalta] 20 mg PO DAILY 01/18/17 Gabapentin 400 mg PO TID PRN 01/18/17 Isosorbide Mononitrate [Imdur -] 30 mg PO HS 01/18/17 Metaxalone [Skelaxin] 800 mg PO PRN PRN 01/18/17 Nitroglycerin [Nitrostat] 0.4 mg SL PRN 01/18/17 Pravastatin Sodium [Pravachol] 40 mg PO HS 01/18/17 Ranitidine HCl [Zantac] 150 mg PO BID 01/18/17 Walker [Ultra-Light Rollator] 1 each MC DAILY #1 each 11/06/18 Albuterol 2.5/Ipratropium 0.5 [Duoneb -] 1 neb IH QID 7 Days #30 vial.neb. 03/03 Allopurinol [Zyloprim -] 100 mg PO DAILY 03/03/19 predniSONE [Deltasone -] 40 mg PO DAILY 3 Days #6 tablet 03/03/19 Albuterol 0.083% Nebulizer Sil [Ventolin 0.083% Nebulizer Soln -] 1 neb NEB Q4H PRN #30 vial 03/04/19 Family Medical History Family History: Unremarkable Review of Systems - Review of Systems Constitutional: denies: Fever Eyes: denies: Blurred Vision HENT: denies: Difficult Swallowing Neck: denies: Decreased ROM Cardiovascular: reports: Shortness of Breath. denies: Chest Pain Respiratory: reports: Cough, Exercise Intolerance, SOB, SOB on Exertion, Wheezing. denies: Hemoptysis Gastrointestinal: reports: No Symptoms Genitourinary: reports: No Symptoms Breasts: reports: No Symptoms Reported Musculoskeletal: reports: No Symptoms Integumentary: reports: No Symptoms Neurological: reports: No Symptoms Endocrine: reports: No Symptoms Hematology/Lymphatic: reports: No Symptoms Physical Exam Vital Sings: Vital Signs Temperature 97.8 F 03/09/19 05:55 Pulse Rate 70 03/09/19 05:55 Respiratory Rate 18 03/09/19 05:55 Blood Pressure 159/74 03/09/19 05:55 O2 Sat by Pulse Oximetry (%) 95 03/09/19 09:00 Constitutional: Yes: Calm Eyes: Yes: EOM Intact HENT: Yes: Normocephalic Neck: Yes: Trachea Midline Cardiovascular: Yes: Regular Rate and Rhythm Respiratory: Yes: Wheezes Gastrointestinal: Yes: Normal Bowel Sounds, Soft, Abdomen, Obese Renal/: Yes: WNL Breast(s): Yes: WNL Musculoskeletal: Yes: WNL Edema: LLE: 1+, RLE: 1+ Integumentary: Yes: WNL Neurological: Yes: WNL, Alert Labs: CBC, BMP 03/09/19 07:50 03/09/19 07:50 Imaging - Results Chest X-ray: Report Reviewed, Image Reviewed Problem List - Problems (1) COPD exacerbation Code(s): J44.1 - CHRONIC OBSTRUCTIVE PULMONARY DISEASE W (ACUTE) EXACERBATION (2) Obese Code(s): E66.9 - OBESITY, UNSPECIFIED (3) SOB (shortness of breath) Code(s): R06.02 - SHORTNESS OF BREATH (4) Arteriosclerotic heart disease (ASHD) Code(s): I25.10 - ATHSCL HEART DISEASE OF [place] CORONARY ARTERY W/O ANG PCTRS (5) Diabetes Code(s): E11.9 - TYPE 2 DIABETES MELLITUS WITHOUT COMPLICATIONS (6) HTN (hypertension) Code(s): I10 - ESSENTIAL (PRIMARY) HYPERTENSION (7) S/P CABG (coronary artery bypass graft) Code(s): Z95.1 - PRESENCE OF AORTOCORONARY BYPASS GRAFT Assessment/Plan WILL INCREASE MEDROL TO Q6 O2/BRONCHODILATORS/ANTIBIOTICS AVOID VOLUME OVERLOAD SUGGEST CARDIO CONSULT WILL FOLLOW Anabel GONZALEZ MD
--- NOTE | 2019-03-09 16:45 | CON.CARD ---
Consult Consult Specialty:: cardiology Reason for Consultation:: shortness of breath; hx CAD/CHF - History of Present Illness Chief Complaint: Pt A&Ox3; sitting up in bed, eating; feels "much better" than on admission (less dyspneic/wheezing). History of Present Illness: 69-year-old black female with history of COPD/bronchial asthma; CAD status post CABG and a few stents, asthma, systolic/diastolic CHF (low-normal LVEF; moderate MR; abnormal diastolic compliance; mild LVH), obesity, sleep apnea, sedentary lifestyle, depression, here today complaining of worsening shortness of breath. Patient states she was seen by Dr. Joens 3 days ago at that time was started on steroids has been using inhaler at home. Today she called Dr. Jones because she felt her shortness of breath was getting worse denies any worsening leg swelling no history of PE or DVT denies any current chest pain. Patient states that she has been taking her prednisone as prescribed has been coughing up some phlegm which is yellowish in color and different for her baseline does not wear home O2 denies any other exacerbating factors. 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 No: AFIB Pulmonary: Yes: Asthma, COPD Gastrointestinal: No: Ascites Hepatobiliary: No: Cirrhosis Renal/: Yes: Renal Inusuff Reproductive: Yes: Postmenopausal ...: No Heme/Onc: No: Anemia Infectious Disease: Yes: Other (oral abscess) Musculoskeletal: Yes: Osteoarthritis Rheumatology: Yes: Gout Endocrine: Yes: Hyperparathyroidism - Past Surgical History Past Surgical History: Yes: CABG, Stent - Alcohol/Substance Use Hx Alcohol Use: No History of Substance Use: reports: None - Smoking History Smoking history: Never smoked Have you smoked in the past 12 months: No Aproximately how many cigarettes per day: 0 If you are a former smoker, when did you quit?: about 30 years ago - Social History ADL: Independent History of Recent Travel: No Home Medications - Allergies Allergies/Adverse Reactions: Allergies Allergy/AdvReac Type Severity Reaction Status Date / Time aspirin Allergy Verified 03/08/19 15:21 Penicillins Allergy Hives Verified 03/08/19 15:21 codeine [Codeine] AdvReac HALLUCINATIONS, Verified 03/08/19 15:21 DROWSY morphine AdvReac HALLUCINATI Verified 03/08/19 15:21 ONS - Home Medications Home Medications: Ambulatory Orders Aspirin Coated [Ecotrin -] 81 mg PO DAILY 08/09/13 Acetaminophen [Tylenol .Regular Strength -] 650 mg PO Q6H PRN #0 tablet Albuterol Sulfate [Proair Hfa -] 1 inh PO ASDIR PRN 90 Days hfa.aer.ad Budesonide/Formeterol Fumarate [SYMBICORT 80/4.5mcg -] 2 inh IH BID 90 Days inhaler 05/17/15 Clopidogrel Bisulfate [Plavix -] 75 mg PO DAILY #90 tablet 05/17/15 Folic Acid - 1 mg PO DAILY #90 tablet 05/17/15 Metoprolol Succinate [Toprol XL -] 25 mg PO DAILY #90 tab.sr.24h 05/17/15 Torsemide 20 mg PO DAILY #90 tablet 05/17/15 metFORMIN HCL [Metformin HCl] 500 mg PO BID #180 tablet 05/17/15 Cholecalciferol (Vitamin D3) [Vitamin D3] 1,000 unit PO ASDIR 01/18/17 Duloxetine HCl [Cymbalta] 20 mg PO DAILY 01/18/17 Gabapentin 400 mg PO TID PRN 01/18/17 Isosorbide Mononitrate [Imdur -] 30 mg PO HS 01/18/17 Metaxalone [Skelaxin] 800 mg PO PRN PRN 01/18/17 Nitroglycerin [Nitrostat] 0.4 mg SL PRN 01/18/17 Pravastatin Sodium [Pravachol] 40 mg PO HS 01/18/17 Ranitidine HCl [Zantac] 150 mg PO BID 01/18/17 Walker [Ultra-Light Rollator] 1 each MC DAILY #1 each 11/06/18 Albuterol 2.5/Ipratropium 0.5 [Duoneb -] 1 neb IH QID 7 Days #30 vial.neb. 03/03 Allopurinol [Zyloprim -] 100 mg PO DAILY 03/03/19 predniSONE [Deltasone -] 40 mg PO DAILY 3 Days #6 tablet 03/03/19 Albuterol 0.083% Nebulizer Sil [Ventolin 0.083% Nebulizer Soln -] 1 neb NEB Q4H PRN #30 vial 03/04/19 Family Medical History Family Hx Cardiac Disorders: Sister (CAD; CHF) Review of Systems - Review of Systems Constitutional: reports: No Symptoms Eyes: reports: No Symptoms HENT: reports: No Symptoms Neck: reports: No Symptoms Cardiovascular: reports: Shortness of Breath Respiratory: reports: Snoring, SOB, Wheezing Gastrointestinal: reports: No Symptoms Genitourinary: reports: No Symptoms Breasts: reports: No Symptoms Reported Musculoskeletal: reports: Joint Pain, Muscle Pain Integumentary: reports: No Symptoms Neurological: reports: No Symptoms Endocrine: reports: No Symptoms Hematology/Lymphatic: reports: No Symptoms Psychiatric: reports: Anxiety, Depression - Risk Factors Known Risk Factors: Yes: Age, Diabetes Mellitus, Family History, Hypercholesterolemia, Hypertension, Physical Inactivity, Prior LA /Emb Stroke, Race Vital Signs: Vital Signs Temperature 98.1 F 03/09/19 15:11 Pulse Rate 88 03/09/19 15:11 Respiratory Rate 18 03/09/19 15:11 Blood Pressure 137/64 03/09/19 15:11 O2 Sat by Pulse Oximetry (%) 95 03/09/19 09:00 Constitutional: Yes: Calm, Obese Eyes: Yes: WNL HENT: Yes: WNL Neck: Yes: WNL Respiratory: Yes: Diminished, SOB, Wheezes Gastrointestinal: Yes: Soft, Abdomen, Obese Renal/: No: Anuria Cardiovascular: Yes: Regular Rate and Rhythm JVD: No Carotid Bruit: No PMI: Non-Displaced Heart Sounds: Yes: S1, S2, S4 Murmur: Yes: Systolic Murmur, Grade 2 Musculoskeletal: Yes: Joint Stiffness Extremities: Yes: WNL Edema: No Peripheral Pulses WNL: Yes Integumentary: Yes: WNL Neurological: Yes: Alert, Oriented, Unsteady Gait Psychiatric: Yes: Alert, Oriented, Other (anxiety/depression). No: Suicidal Ideation - Other Data Labs, Other Data: CBC, BMP 03/09/19 07:50 03/09/19 07:50 INR, PTT INR 0.92 (0.83-1.09) 03/08/19 16:50 Troponin, BNP 03/08/19 03/08/19 16:50 16:50 Troponin I < 0.02 B-Natriuretic Peptide 233.4 H Troponin, BNP 03/08/19 03/08/19 16:50 16:50 Troponin I < 0.02 B-Natriuretic Peptide 233.4 H Abnormal Lab Results 03/09/19 03/09/19 07:50 07:50 WBC 11.0 H RBC 5.56 H MCV 73.1 L MCH 22.8 L MCHC 31.1 L RDW 15.7 H Absolute Neuts (auto) 9.5 H Neutrophils % 86.5 H D Monocytes % 2.9 L Random Glucose 159 H Albumin 3.3 L Echo: Report Reviewed Ejection Fraction %: LVEF > or = 40 % Imaging - Results Chest X-ray: Image Reviewed EKG: Image Reviewed Problem List - Problems (1) COPD exacerbation Assessment/Plan: Bronchodilators, O2, steroids per pst manager. If pt has true bronchial asthma component, would consider titrating off metoprolol; however, she has been on the agent for years (CAD; low-normal LVEF) , and until relatively recently appeared to be tolerating it. Code(s): J44.1 - CHRONIC OBSTRUCTIVE PULMONARY DISEASE W (ACUTE) EXACERBATION (2) ACS (acute coronary syndrome) Assessment/Plan: TNI < 0.02; f/u EKG and TNI serially. EKG: no significant change (NSR; septal infarct). BNP mildly elevated. Restart lisinopril 10 mg daily. Recommend adding SGLT-2 inhibitor for DM and benefits in lowering cardiac risks. Code(s): I24.9 - ACUTE ISCHEMIC HEART DISEASE, UNSPECIFIED (3) Obese Code(s): E66.9 - OBESITY, UNSPECIFIED Qualifiers: Body mass index: BMI 60.0-69.9 (4) Sedentary lifestyle Code(s): Z91.89 - OTH PERSONAL RISK FACTORS, NOT ELSEWHERE CLASSIFIED (5) Diabetes Code(s): E11.9 - TYPE 2 DIABETES MELLITUS WITHOUT COMPLICATIONS (6) HTN (hypertension) Code(s): I10 - ESSENTIAL (PRIMARY) HYPERTENSION (7) Hyperlipidemia Assessment/Plan: On statin (agree with atorvastatin, a more potent agent than the pravastatin she had been on previously). F/u lipid profile, and keep LDL well below 70 mg/dL. TSH WNL 12/2018 Code(s): E78.5 - HYPERLIPIDEMIA, UNSPECIFIED (8) S/P CABG (coronary artery bypass graft) Code(s): Z95.1 - PRESENCE OF AORTOCORONARY BYPASS GRAFT (9) Depression Assessment/Plan: Pt has been depressed for years, but lately has felt worse, principally related to childhood memories. Denies suicidal ideation. She would like to see a psychiatrist at some point in the near future. Code(s): F32.9 - MAJOR DEPRESSIVE DISORDER, SINGLE EPISODE, UNSPECIFIED (10) Sleep apnea Assessment/Plan: F/u with Dr. Jones. Code(s): G47.30 - SLEEP APNEA, UNSPECIFIED
[2019-03-10] MEDS: methylPREDNISolone NA SUCC 40 MG/1 ML VIAL IVPUSH SCH ×3 (01:56→17:32)
[2019-03-10] MEDS: metFORMIN HCL 500 MG TABLET (FP) PO SCH ×2 (06:09→17:32)
--- NOTE | 2019-03-10 08:22 | PN ---
Progress Note, Physician Chief Complaint: awake alert NAD still coughung and wheezing; no CP no fever consults appreciated - Current Medication List Current Medications: Active Medications Acetaminophen (Tylenol -) 650 mg PO Q6H PRN PRN Reason: FEVER Albuterol Sulfate (Ventolin 0.083% Nebulizer Soln -) 1 amp NEB Q4H PRN PRN Reason: SHORTNESS OF BREATH Albuterol Sulfate (Ventolin Hfa Inhaler -) 1 puff IH TID PRN PRN Reason: SHORT OF BREATH/WHEEZING Albuterol/Ipratropium (Duoneb -) 1 amp NEB Q6H PRN PRN Reason: WHEEZING Allopurinol (Zyloprim -) 100 mg PO DAILY [facility] Last Admin: 03/09/19 10:10 Dose: 100 mg Atorvastatin Calcium (Lipitor -) 10 mg PO HS [facility] Last Admin: 03/09/19 21:40 Dose: 10 mg Budesonide/Formoterol Fumarate (Symbicort 80/4.5mcg -) 2 puff IH BID [facility] Last Admin: 03/09/19 21:41 Dose: 2 puff Clopidogrel Bisulfate (Plavix -) 75 mg PO DAILY [facility] Last Admin: 03/09/19 10:10 Dose: 75 mg Duloxetine HCl (Cymbalta -) 20 mg PO DAILY [facility] Last Admin: 03/09/19 11:13 Dose: 20 mg Famotidine (Pepcid -) 20 mg PO BID [facility] Last Admin: 03/09/19 21:40 Dose: 20 mg Folic Acid (Folic Acid -) 1 mg PO DAILY [facility] Last Admin: 03/09/19 10:10 Dose: 1 mg Gabapentin (Neurontin -) 400 mg PO Q8H PRN PRN Reason: PAIN LEVEL 6-10 Isosorbide Mononitrate (Imdur -) 30 mg PO HS [facility] Last Admin: 03/09/19 21:40 Dose: 30 mg Lisinopril (Prinivil) 10 mg PO DAILY [facility] Metformin HCl (Glucophage -) 500 mg PO BIDAC [facility] Last Admin: 03/10/19 06:09 Dose: 500 mg Methylprednisolone Sodium Succinate (Solu-Medrol -) 40 mg IVPUSH Q8H-IV [facility] Last Admin: 03/10/19 01:56 Dose: 40 mg Metoprolol Succinate (Toprol Xl -) 25 mg PO DAILY [facility] Last Admin: 03/09/19 10:10 Dose: 25 mg Nitroglycerin (Nitrostat -) 0.4 mg SL Q5M PRN PRN Reason: CHEST PAIN Last Admin: 03/09/19 00:11 Dose: 0.4 mg Pantoprazole Sodium (Protonix -) 20 mg PO DAILY [facility] Last Admin: 03/09/19 10:10 Dose: 20 mg Torsemide (Demadex -) 20 mg PO DAILY [facility] Last Admin: 03/09/19 10:09 Dose: 20 mg - Objective Vital Signs: Vital Signs Temperature 98.3 F 03/09/19 21:00 Pulse Rate 87 03/09/19 21:00 Respiratory Rate 20 03/09/19 21:00 Blood Pressure 143/87 03/09/19 21:00 O2 Sat by Pulse Oximetry (%) 96 03/09/19 21:00 Constitutional: Yes: No Distress Eyes: Yes: Conjunctiva Clear HENT: Yes: Atraumatic Neck: Yes: Supple Cardiovascular: Yes: Regular Rate and Rhythm Respiratory: Yes: Rales Gastrointestinal: Yes: Soft. No: Tenderness Genitourinary: No: Hematuria Musculoskeletal: No: Joint Stiffness, Joint Swelling Extremities: No: Cold, Cool, Cyanosis Edema: No Integumentary: No: Rash, Venous Stasis Changes Neurological: Yes: Alert ...Motor Strength: WNL Psychiatric: Yes: Alert. No: Agitated, Suicidal Ideation Labs: CBC, BMP 03/09/19 07:50 03/09/19 07:50 INR, PTT INR 0.92 (0.83-1.09) 03/08/19 16:50 - ....Imaging Other: Report Reviewed Assessment/Plan 69 y/o F with PMHx of COPD, CHF, DM, HTN, HLD, CAD s/p CABGx2 and stents on ASA/ plavix, NED presenting with wheezing and SOB x 1 week associated yellow sputum productive cough, midsternal/L chest pain. Unimproved w albuterol inhalers admitted with COPD exac; pulm f/u; IV steroids h/o ASHD: cardiology f/u f/u labs d/w pt and staff
[2019-03-10] MEDS ORDERED: LISINOPRIL 5 MG TABLET (FP) PO SCH (10:00)
[2019-03-10] MEDS: metoPROLOL SUCCINATE 25 MG TAB.SR.24H (FP) PO SCH (11:05)
[2019-03-10] MEDS: CLOPIDOGREL BISULFATE 75 MG TABLET (FP) PO SCH (11:05)
[2019-03-10] MEDS: PANTOPRAZOLE 20 MG TABLET (FP) PO SCH (11:06)
[2019-03-10] MEDS: FOLIC ACID 1 MG TABLET (FP) PO SCH (11:06)
[2019-03-10] MEDS: LISINOPRIL 5 MG TABLET (FP) PO SCH (11:06)
[2019-03-10] MEDS: TORSEMIDE 20 MG TABLET (FP) PO SCH (11:06)
[2019-03-10] MEDS: FAMOTIDINE 20 MG TABLET PO SCH ×2 (11:06→22:05)
[2019-03-10] MEDS: ALLOPURINOL 100 MG TABLET (FP) PO SCH (11:06)
[2019-03-10] MEDS: BUDESONIDE/FORMETEROL FUMARATE 80/4.5 mcg INHALER IH SCH ×2 (11:11→22:06)
[2019-03-10] MEDS: DULoxetine HCL 20 MG CAPSULE.DR PO SCH (11:17)
--- NOTE | 2019-03-10 11:39 | PN ---
Progress Note (short form) - Note Progress Note: OOB to chair. Breathing feels a little better today. Less SOB. Congested cough. Intake & Output 03/07/19 03/08/19 03/09/19 03/10/19 23:59 23:59 23:59 23:59 Intake Total 427 320 Balance 427 320 Weight 199 lb 182 lb 11.2 oz 192 lb Last Vital Signs Temp Pulse Resp BP Pulse Ox 98.3 F 87 20 143/87 96 03/09/19 21:00 03/09/19 21:00 03/09/19 21:00 03/09/19 21:00 03/09/19 21:00 Active Medications Acetaminophen (Tylenol -) 650 mg PO Q6H PRN PRN Reason: FEVER Albuterol Sulfate (Ventolin 0.083% Nebulizer Soln -) 1 amp NEB Q4H PRN PRN Reason: SHORTNESS OF BREATH Albuterol Sulfate (Ventolin Hfa Inhaler -) 1 puff IH TID PRN PRN Reason: SHORT OF BREATH/WHEEZING Albuterol/Ipratropium (Duoneb -) 1 amp NEB Q6H PRN PRN Reason: WHEEZING Allopurinol (Zyloprim -) 100 mg PO DAILY [facility] Last Admin: 03/10/19 11:06 Dose: 100 mg Atorvastatin Calcium (Lipitor -) 10 mg PO [facility] Last Admin: 03/09/19 21:40 Dose: 10 mg Budesonide/Formoterol Fumarate (Symbicort 80/4.5mcg -) 2 puff IH BID [facility] Last Admin: 03/10/19 11:11 Dose: 2 puff Clopidogrel Bisulfate (Plavix -) 75 mg PO DAILY [facility] Last Admin: 03/10/19 11:05 Dose: 75 mg Duloxetine HCl (Cymbalta -) 20 mg PO DAILY [facility] Last Admin: 03/10/19 11:17 Dose: 20 mg Famotidine (Pepcid -) 20 mg PO BID [facility] Last Admin: 03/10/19 11:06 Dose: 20 mg Folic Acid (Folic Acid -) 1 mg PO DAILY [facility] Last Admin: 03/10/19 11:06 Dose: 1 mg Gabapentin (Neurontin -) 400 mg PO Q8H PRN PRN Reason: PAIN LEVEL 6-10 Isosorbide Mononitrate (Imdur -) 30 mg PO HS [facility] Last Admin: 03/09/19 21:40 Dose: 30 mg Lisinopril (Prinivil) 10 mg PO DAILY [facility] Last Admin: 03/10/19 11:06 Dose: 10 mg Metformin HCl (Glucophage -) 500 mg PO BIDAC [facility] Last Admin: 03/10/19 06:09 Dose: 500 mg Methylprednisolone Sodium Succinate (Solu-Medrol -) 40 mg IVPUSH Q8H-IV [facility] Last Admin: 03/10/19 11:06 Dose: 40 mg Metoprolol Succinate (Toprol Xl -) 25 mg PO DAILY [facility] Last Admin: 03/10/19 11:05 Dose: 25 mg Nitroglycerin (Nitrostat -) 0.4 mg SL Q5M PRN PRN Reason: CHEST PAIN Last Admin: 03/09/19 00:11 Dose: 0.4 mg Pantoprazole Sodium (Protonix -) 20 mg PO DAILY [facility] Last Admin: 03/10/19 11:06 Dose: 20 mg Torsemide (Demadex -) 20 mg PO DAILY [facility] Last Admin: 03/10/19 11:06 Dose: 20 mg Constitutional: Yes: NAD Eyes: Yes: EOM Intact HENT: Yes: Normocephalic Neck: Yes: Trachea Midline Cardiovascular: Yes: Regular Rate and Rhythm Respiratory: Yes: Scattered Wheezes and Rhonchi Gastrointestinal: Yes: Normal Bowel Sounds, Soft, Abdomen, Obese Renal/: Yes: WNL Breast(s): Yes: WNL Musculoskeletal: Yes: WNL Edema: LLE: 1+, RLE: 1+ Integumentary: Yes: WNL Neurological: Yes: WNL, Alert Labs: Laboratory Results - last 24 hr 03/09/19 03/09/19 03/10/19 17:04 21:38 06:07 POC Glucometer 211 221 206 03/10/19 11:23 POC Glucometer 173 Problem List - Problems (1) COPD exacerbation Code(s): J44.1 - CHRONIC OBSTRUCTIVE PULMONARY DISEASE W (ACUTE) EXACERBATION (2) Obese Code(s): E66.9 - OBESITY, UNSPECIFIED (3) SOB (shortness of breath) Code(s): R06.02 - SHORTNESS OF BREATH (4) Arteriosclerotic heart disease (ASHD) Code(s): I25.10 - ATHSCL HEART DISEASE OF [place] CORONARY ARTERY W/O ANG PCTRS (5) Diabetes Code(s): E11.9 - TYPE 2 DIABETES MELLITUS WITHOUT COMPLICATIONS (6) HTN (hypertension) Code(s): I10 - ESSENTIAL (PRIMARY) HYPERTENSION (7) S/P CABG (coronary artery bypass graft) Code(s): Z95.1 - PRESENCE OF AORTOCORONARY BYPASS GRAFT Assessment/Plan (?) [facility] Medrol at current dose, can likely start wean in the AM O2 BRONCHODILATORS ANTIBIOTICS AVOID VOLUME OVERLOAD Will need sleep apnea workup after DC Dr Norman
--- NOTE | 2019-03-10 14:58 | PN ---
Progress Note, Physician Chief Complaint: Events noted Coverage for Dr. Cadet Tolerating therapy History of Present Illness: Patient was seen and examined. Awake and alert. Chart was reviewed Denies chest pain, SOB or palpitations - Current Medication List Current Medications: Active Medications Acetaminophen (Tylenol -) 650 mg PO Q6H PRN PRN Reason: FEVER Albuterol Sulfate (Ventolin 0.083% Nebulizer Soln -) 1 amp NEB Q4H PRN PRN Reason: SHORTNESS OF BREATH Albuterol Sulfate (Ventolin Hfa Inhaler -) 1 puff IH TID PRN PRN Reason: SHORT OF BREATH/WHEEZING Albuterol/Ipratropium (Duoneb -) 1 amp NEB Q6H PRN PRN Reason: WHEEZING Allopurinol (Zyloprim -) 100 mg PO DAILY [facility] Last Admin: 03/10/19 11:06 Dose: 100 mg Atorvastatin Calcium (Lipitor -) 10 mg PO HS [facility] Last Admin: 03/09/19 21:40 Dose: 10 mg Budesonide/Formoterol Fumarate (Symbicort 80/4.5mcg -) 2 puff IH BID [facility] Last Admin: 03/10/19 11:11 Dose: 2 puff Clopidogrel Bisulfate (Plavix -) 75 mg PO DAILY [facility] Last Admin: 03/10/19 11:05 Dose: 75 mg Duloxetine HCl (Cymbalta -) 20 mg PO DAILY [facility] Last Admin: 03/10/19 11:17 Dose: 20 mg Famotidine (Pepcid -) 20 mg PO BID [facility] Last Admin: 03/10/19 11:06 Dose: 20 mg Folic Acid (Folic Acid -) 1 mg PO DAILY [facility] Last Admin: 03/10/19 11:06 Dose: 1 mg Gabapentin (Neurontin -) 400 mg PO Q8H PRN PRN Reason: PAIN LEVEL 6-10 Isosorbide Mononitrate (Imdur -) 30 mg PO HS [facility] Last Admin: 03/09/19 21:40 Dose: 30 mg Lisinopril (Prinivil) 10 mg PO DAILY [facility] Last Admin: 03/10/19 11:06 Dose: 10 mg Metformin HCl (Glucophage -) 500 mg PO BIDAC [facility] Last Admin: 03/10/19 06:09 Dose: 500 mg Methylprednisolone Sodium Succinate (Solu-Medrol -) 40 mg IVPUSH Q8H-IV [facility] Last Admin: 03/10/19 11:06 Dose: 40 mg Metoprolol Succinate (Toprol Xl -) 25 mg PO DAILY [facility] Last Admin: 03/10/19 11:05 Dose: 25 mg Nitroglycerin (Nitrostat -) 0.4 mg SL Q5M PRN PRN Reason: CHEST PAIN Last Admin: 03/09/19 00:11 Dose: 0.4 mg Pantoprazole Sodium (Protonix -) 20 mg PO DAILY [facility] Last Admin: 03/10/19 11:06 Dose: 20 mg Torsemide (Demadex -) 20 mg PO DAILY [facility] Last Admin: 03/10/19 11:06 Dose: 20 mg - Objective Vital Signs: Vital Signs Temperature 98.3 F 03/09/19 21:00 Pulse Rate 87 03/09/19 21:00 Respiratory Rate 20 03/09/19 21:00 Blood Pressure 143/87 03/09/19 21:00 O2 Sat by Pulse Oximetry (%) 96 03/09/19 21:00 Eyes: Yes: PERRL HENT: Yes: Atraumatic Neck: Yes: Supple Cardiovascular: Yes: Regular Rate and Rhythm, Murmur (SM), S1, S2 Respiratory: Yes: Diminished Gastrointestinal: Yes: Normal Bowel Sounds, Soft. No: Tenderness Edema: No Labs: CBC, BMP 03/09/19 07:50 03/09/19 07:50 INR, PTT INR 0.92 (0.83-1.09) 03/08/19 16:50 Problem List - Problems (1) COPD exacerbation Code(s): J44.1 - CHRONIC OBSTRUCTIVE PULMONARY DISEASE W (ACUTE) EXACERBATION (2) Sleep apnea Code(s): G47.30 - SLEEP APNEA, UNSPECIFIED (3) SOB (shortness of breath) Code(s): R06.02 - SHORTNESS OF BREATH (4) Arteriosclerotic heart disease (ASHD) Code(s): I25.10 - ATHSCL HEART DISEASE OF [place] CORONARY ARTERY W/O ANG PCTRS (5) Diabetes Code(s): E11.9 - TYPE 2 DIABETES MELLITUS WITHOUT COMPLICATIONS (6) HTN (hypertension) Code(s): I10 - ESSENTIAL (PRIMARY) HYPERTENSION (7) Hyperlipidemia Code(s): E78.5 - HYPERLIPIDEMIA, UNSPECIFIED (8) S/P CABG (coronary artery bypass graft) Code(s): Z95.1 - PRESENCE OF AORTOCORONARY BYPASS GRAFT Assessment/Plan 1. COPD exacerbation 2. CAD s/p CABG, angina pectoris 3. HTN 4. Hypercholesterolemia 5. T2DM 6. NED PLAN: 1. Bronchodilator, O2 and steroid taper 2. Continue Metoprolol ER 25 mg QD, Isosorbide 30 mg QD and Lisinopril 10 mg QD as tolerated 3. Continue Atorvastatin 10 mg QHS 4. Plavix 75 mg QD 5. Continue Demadex 20 mg QD 6. Monitor renal function and electrolytes 7. Sleep study and treatment of NED to follow as outpatient Dr. Cadet to resume care on Tuesday Chuck Ozuna MD
[2019-03-10 17:23] LABS: CHOLESTEROL 175 mg/dL (50-200); HDL CHOLESTEROL 90 mg/dL (40-60); LDL CHOLESTEROL (ONLY SJRH) 61 mg/dL (5-100); TRIGLYCERIDES 116 mg/dL (0-150)
[2019-03-10] MEDS: ISOSORBIDE MONONITRATE 30 MG TAB.SR.24H (FP) PO SCH (22:05)
[2019-03-10] MEDS: ATORVASTATIN CA 10 MG TABLET (FP) PO SCH (22:05)
[2019-03-11] MEDS: methylPREDNISolone NA SUCC 40 MG/1 ML VIAL IVPUSH SCH ×3 (01:33→22:08)
[2019-03-11] MEDS: metFORMIN HCL 500 MG TABLET (FP) PO SCH ×2 (06:10→17:39)
[2019-03-11 07:52] LABS: BASO % 0.2 % (0-2.0); HEMATOCRIT 43.7 % (32.4-45.2); HEMOGLOBIN 13.6 GM/dL (10.7-15.3); MCH 22.6 pg (25.7-33.7); MCHC 31.2 g/dl (32.0-36.0); MEAN CELL VOLUME 72.4 fl (80-96); MEAN PLT VOLUME 8.4 fl (7.5-11.1); MONO % 5.1 % (3.8-10.2); NEUT % 86.7 % (42.8-82.8); PLATELET COUNT 373 K/MM3 (134-434); RBC 6.03 M/mm3 (3.60-5.2); RDW 15.4 % (11.6-15.6); WHITE BLOOD COUNT 15.6 K/mm3 (4.0-10.0)
[2019-03-11 08:02] LABS: ALBUMIN 3.4 g/dl (3.4-5.0); BILIRUBIN,TOTAL 0.4 mg/dL (0.2-1); BLOOD UREA NITROGEN 33.4 mg/dL (7-18); CALCIUM 9.7 mg/dL (8.5-10.1); POTASSIUM 3.8 mmol/L (3.5-5.1); TOT PROT 7.2 g/dl (6.4-8.2)
--- NOTE | 2019-03-11 09:17 | PN ---
Progress Note, Physician Chief Complaint: has sore throat today difficult to eat b/o pain, no drooling (able to swallow) - afebrile still tight chest no CP brings up yellow sputum - Current Medication List Current Medications: Active Medications Acetaminophen (Tylenol -) 650 mg PO Q6H PRN PRN Reason: FEVER Albuterol Sulfate (Ventolin 0.083% Nebulizer Soln -) 1 amp NEB Q4H PRN PRN Reason: SHORTNESS OF BREATH Albuterol Sulfate (Ventolin Hfa Inhaler -) 1 puff IH TID PRN PRN Reason: SHORT OF BREATH/WHEEZING Albuterol/Ipratropium (Duoneb -) 1 amp NEB Q6H PRN PRN Reason: WHEEZING Allopurinol (Zyloprim -) 100 mg PO DAILY [facility] Last Admin: 03/10/19 11:06 Dose: 100 mg Atorvastatin Calcium (Lipitor -) 10 mg PO HS [facility] Last Admin: 03/10/19 22:05 Dose: 10 mg Budesonide/Formoterol Fumarate (Symbicort 80/4.5mcg -) 2 puff IH BID [facility] Last Admin: 03/10/19 22:06 Dose: 2 puff Clopidogrel Bisulfate (Plavix -) 75 mg PO DAILY [facility] Last Admin: 03/10/19 11:05 Dose: 75 mg Duloxetine HCl (Cymbalta -) 20 mg PO DAILY [facility] Last Admin: 03/10/19 11:17 Dose: 20 mg Famotidine (Pepcid -) 20 mg PO BID [facility] Last Admin: 03/10/19 22:05 Dose: 20 mg Folic Acid (Folic Acid -) 1 mg PO DAILY [facility] Last Admin: 03/10/19 11:06 Dose: 1 mg Gabapentin (Neurontin -) 400 mg PO Q8H PRN PRN Reason: PAIN LEVEL 6-10 Isosorbide Mononitrate (Imdur -) 30 mg PO HS [facility] Last Admin: 03/10/19 22:05 Dose: 30 mg Lisinopril (Prinivil) 10 mg PO DAILY [facility] Last Admin: 03/10/19 11:06 Dose: 10 mg Metformin HCl (Glucophage -) 500 mg PO BIDAC [facility] Last Admin: 03/11/19 06:10 Dose: 500 mg Methylprednisolone Sodium Succinate (Solu-Medrol -) 40 mg IVPUSH Q8H-IV [facility] Last Admin: 03/11/19 01:33 Dose: 40 mg Metoprolol Succinate (Toprol Xl -) 25 mg PO DAILY [facility] Last Admin: 03/10/19 11:05 Dose: 25 mg Nitroglycerin (Nitrostat -) 0.4 mg SL Q5M PRN PRN Reason: CHEST PAIN Last Admin: 03/09/19 00:11 Dose: 0.4 mg Pantoprazole Sodium (Protonix -) 20 mg PO DAILY [facility] Last Admin: 03/10/19 11:06 Dose: 20 mg Torsemide (Demadex -) 20 mg PO DAILY [facility] Last Admin: 03/10/19 11:06 Dose: 20 mg - Objective Vital Signs: Vital Signs Temperature 97.7 F 03/11/19 04:39 Pulse Rate 74 03/11/19 04:39 Respiratory Rate 20 03/11/19 04:39 Blood Pressure 150/88 03/11/19 04:39 O2 Sat by Pulse Oximetry (%) 95 03/10/19 21:00 Constitutional: Yes: No Distress, Calm Eyes: Yes: Conjunctiva Clear HENT: Yes: Atraumatic Neck: Yes: Supple Cardiovascular: Yes: Regular Rate and Rhythm Respiratory: Yes: Diminished Gastrointestinal: Yes: Soft. No: Tenderness Genitourinary: No: Hematuria Musculoskeletal: No: Joint Stiffness, Joint Swelling Extremities: No: Cold, Cool Edema: No Integumentary: No: Rash, Venous Stasis Changes Neurological: Yes: WNL, Alert, Oriented ...Motor Strength: WNL Psychiatric: Yes: WNL, Alert, Oriented. No: Agitated, Suicidal Ideation Labs: CBC, BMP 03/11/19 07:15 03/11/19 07:15 INR, PTT INR 0.92 (0.83-1.09) 03/08/19 16:50 - ....Imaging Other: Report Reviewed Assessment/Plan 69 y/o F with PMHx of COPD, CHF, DM, HTN, HLD, CAD s/p CABGx2 and stents on ASA/ plavix, NED admitted with wheezing and SOB x 1 week associated yellow sputum productive cough, sore throat ALL PNC admitted with COPD exac; pulm f/u; IV steroids h/o ASHD: cardiology f/u IV zithromax, ENT eval f/u labs d/w pt and staff
[2019-03-11] MEDS ORDERED: PT OWN MED DRAWER 7, Y5N ONE (11:14)
[2019-03-11] MEDS: PANTOPRAZOLE 20 MG TABLET (FP) PO SCH (11:25)
[2019-03-11] MEDS: ALLOPURINOL 100 MG TABLET (FP) PO SCH (11:25)
[2019-03-11] MEDS: metoPROLOL SUCCINATE 25 MG TAB.SR.24H (FP) PO SCH (11:25)
[2019-03-11] MEDS: TORSEMIDE 20 MG TABLET (FP) PO SCH (11:25)
[2019-03-11] MEDS: LISINOPRIL 5 MG TABLET (FP) PO SCH (11:25)
[2019-03-11] MEDS: FAMOTIDINE 20 MG TABLET PO SCH ×2 (11:25→22:08)
[2019-03-11] MEDS: FOLIC ACID 1 MG TABLET (FP) PO SCH (11:26)
[2019-03-11] MEDS: CLOPIDOGREL BISULFATE 75 MG TABLET (FP) PO SCH (11:26)
[2019-03-11] MEDS: BUDESONIDE/FORMETEROL FUMARATE 80/4.5 mcg INHALER IH SCH ×2 (11:46→22:09)
--- NOTE | 2019-03-11 11:49 | PN ---
Progress Note (short form) - Note Progress Note: OOB to chair. Breathing feels a little better today. Somewhat increased sore throat. Less SOB. Congested cough. Intake & Output 03/08/19 03/09/19 03/10/19 03/11/19 23:59 23:59 23:59 23:59 Intake Total 427 810 480 Balance 427 810 480 Weight 199 lb 182 lb 11.2 oz 192 lb 188 lb Last Vital Signs Temp Pulse Resp BP Pulse Ox 97.7 F 74 20 150/88 95 03/11/19 04:39 03/11/19 04:39 03/11/19 04:39 03/11/19 04:39 03/10/19 21:00 Active Medications Acetaminophen (Tylenol -) 650 mg PO Q6H PRN PRN Reason: FEVER Albuterol Sulfate (Ventolin 0.083% Nebulizer Soln -) 1 amp NEB Q4H PRN PRN Reason: SHORTNESS OF BREATH Albuterol Sulfate (Ventolin Hfa Inhaler -) 1 puff IH TID PRN PRN Reason: SHORT OF BREATH/WHEEZING Albuterol/Ipratropium (Duoneb -) 1 amp NEB Q6H PRN PRN Reason: WHEEZING Allopurinol (Zyloprim -) 100 mg PO DAILY [facility] Last Admin: 03/11/19 11:25 Dose: 100 mg Atorvastatin Calcium (Lipitor -) 10 mg PO [facility] Last Admin: 03/10/19 22:05 Dose: 10 mg Budesonide/Formoterol Fumarate (Symbicort 80/4.5mcg -) 2 puff IH BID [facility] Last Admin: 03/11/19 11:46 Dose: 2 puff Clopidogrel Bisulfate (Plavix -) 75 mg PO DAILY [facility] Last Admin: 03/11/19 11:26 Dose: 75 mg Duloxetine HCl (Cymbalta -) 20 mg PO DAILY [facility] Last Admin: 03/10/19 11:17 Dose: 20 mg Famotidine (Pepcid -) 20 mg PO BID [facility] Last Admin: 03/11/19 11:25 Dose: 20 mg Folic Acid (Folic Acid -) 1 mg PO DAILY [facility] Last Admin: 03/11/19 11:26 Dose: 1 mg Gabapentin (Neurontin -) 400 mg PO Q8H PRN PRN Reason: PAIN LEVEL 6-10 Azithromycin (Zithromax 500mg Ivpb (Pre-Docked)) 500 mg in 250 mls @ 250 mls/ hr IVPB DAILY [facility] Isosorbide Mononitrate (Imdur -) 30 mg PO HS [facility] Last Admin: 03/10/19 22:05 Dose: 30 mg Lisinopril (Prinivil) 10 mg PO DAILY [facility] Last Admin: 03/11/19 11:25 Dose: 10 mg Metformin HCl (Glucophage -) 500 mg PO BIDAC [facility] Last Admin: 03/11/19 06:10 Dose: 500 mg Methylprednisolone Sodium Succinate (Solu-Medrol -) 40 mg IVPUSH Q8H-IV [facility] Last Admin: 03/11/19 11:27 Dose: 40 mg Metoprolol Succinate (Toprol Xl -) 25 mg PO DAILY [facility] Last Admin: 03/11/19 11:25 Dose: 25 mg Nitroglycerin (Nitrostat -) 0.4 mg SL Q5M PRN PRN Reason: CHEST PAIN Last Admin: 03/09/19 00:11 Dose: 0.4 mg Pantoprazole Sodium (Protonix -) 20 mg PO DAILY [facility] Last Admin: 03/11/19 11:25 Dose: 20 mg Torsemide (Demadex -) 20 mg PO DAILY [facility] Last Admin: 03/11/19 11:25 Dose: 20 mg Constitutional: Yes: NAD Eyes: Yes: EOM Intact HENT: Yes: Normocephalic Neck: Yes: Trachea Midline Cardiovascular: Yes: Regular Rate and Rhythm Respiratory: Yes: Less scattered Wheezes and Rhonchi Gastrointestinal: Yes: Normal Bowel Sounds, Soft, Abdomen, Obese Renal/: Yes: WNL Breast(s): Yes: WNL Musculoskeletal: Yes: WNL Edema: LLE: 1+, RLE: 1+ Integumentary: Yes: WNL Neurological: Yes: WNL, Alert Labs: Laboratory Results - last 24 hr 03/09/19 03/10/19 03/10/19 07:50 16:15 17:13 WBC RBC Hgb Hct MCV MCH MCHC RDW Plt Count MPV Absolute Neuts (auto) Neutrophils % Lymphocytes % Monocytes % Eosinophils % Basophils % Nucleated RBC % Sodium 142 Potassium 4.2 Chloride 104 Carbon Dioxide 29 Anion Gap 9 BUN 17.3 Creatinine 0.8 Est GFR (CKD-EPI)AfAm 85.97 Est GFR (CKD-EPI)NonAf 74.17 POC Glucometer 199 Random Glucose 159 H Calcium 9.6 Total Bilirubin 0.4 AST 18 ALT 44 Alkaline Phosphatase 93 Total Protein 7.4 Albumin 3.3 L Triglycerides 100 116 Cholesterol 154 175 Total LDL Cholesterol 49 61 HDL Cholesterol 83 H 90 H 03/10/19 03/11/19 03/11/19 22:03 06:09 07:15 WBC 15.6 H RBC 6.03 H Hgb 13.6 Hct 43.7 MCV 72.4 L MCH 22.6 L MCHC 31.2 L RDW 15.4 Plt Count 373 MPV 8.4 Absolute Neuts (auto) 13.6 H Neutrophils % 86.7 H Lymphocytes % 8.0 D Monocytes % 5.1 Eosinophils % 0.0 Basophils % 0.2 Nucleated RBC % 0 Sodium Potassium Chloride Carbon Dioxide Anion Gap BUN Creatinine Est GFR (CKD-EPI)AfAm Est GFR (CKD-EPI)NonAf POC Glucometer 237 195 Random Glucose Calcium Total Bilirubin AST ALT Alkaline Phosphatase Total Protein Albumin Triglycerides Cholesterol Total LDL Cholesterol HDL Cholesterol 03/11/19 03/11/19 07:15 11:43 WBC RBC Hgb Hct MCV MCH MCHC RDW Plt Count MPV Absolute Neuts (auto) Neutrophils % Lymphocytes % Monocytes % Eosinophils % Basophils % Nucleated RBC % Sodium 138 Potassium 3.8 Chloride 99 Carbon Dioxide 30 Anion Gap 9 BUN 33.4 H Creatinine 1.0 Est GFR (CKD-EPI)AfAm 65.64 Est GFR (CKD-EPI)NonAf 56.64 POC Glucometer 213 Random Glucose 180 H Calcium 9.7 Total Bilirubin 0.4 AST 11 L ALT 36 Alkaline Phosphatase 86 Total Protein 7.2 Albumin 3.4 Triglycerides Cholesterol Total LDL Cholesterol HDL Cholesterol Problem List - Problems (1) COPD exacerbation Code(s): J44.1 - CHRONIC OBSTRUCTIVE PULMONARY DISEASE W (ACUTE) EXACERBATION (2) Obese Code(s): E66.9 - OBESITY, UNSPECIFIED (3) SOB (shortness of breath) Code(s): R06.02 - SHORTNESS OF BREATH (4) Arteriosclerotic heart disease (ASHD) Code(s): I25.10 - ATHSCL HEART DISEASE OF [place] CORONARY ARTERY W/O ANG PCTRS (5) Diabetes Code(s): E11.9 - TYPE 2 DIABETES MELLITUS WITHOUT COMPLICATIONS (6) HTN (hypertension) Code(s): I10 - ESSENTIAL (PRIMARY) HYPERTENSION (7) S/P CABG (coronary artery bypass graft) Code(s): Z95.1 - PRESENCE OF AORTOCORONARY BYPASS GRAFT Assessment/Plan (?) OS[facility] Wean Medrol [employer] Will need sleep apnea workup after DC Dr Norman
[2019-03-11] MEDS: AZITHROMYCIN IVPB 500 MG/250 ML BAG IVPB SCH (12:20)
[2019-03-11] MEDS: DULoxetine HCL 20 MG CAPSULE.DR PO SCH (12:37)
[2019-03-11] MEDS: ATORVASTATIN CA 10 MG TABLET (FP) PO SCH (22:08)
[2019-03-11] MEDS: ISOSORBIDE MONONITRATE 30 MG TAB.SR.24H (FP) PO SCH (22:08)
[2019-03-12] MEDS: metFORMIN HCL 500 MG TABLET (FP) PO SCH ×2 (06:52→17:07)
[2019-03-12] MEDS ORDERED: PT OWN MED DRAWER 7, Y5N ONE (09:05)
[2019-03-12] MEDS: FAMOTIDINE 20 MG TABLET PO SCH ×2 (09:08→22:06)
[2019-03-12] MEDS: metoPROLOL SUCCINATE 25 MG TAB.SR.24H (FP) PO SCH (09:08)
[2019-03-12] MEDS: CLOPIDOGREL BISULFATE 75 MG TABLET (FP) PO SCH (09:08)
[2019-03-12] MEDS: methylPREDNISolone NA SUCC 40 MG/1 ML VIAL IVPUSH SCH ×2 (09:08→22:06)
[2019-03-12] MEDS: LISINOPRIL 5 MG TABLET (FP) PO SCH (09:08)
[2019-03-12] MEDS: ALLOPURINOL 100 MG TABLET (FP) PO SCH (09:08)
[2019-03-12] MEDS: TORSEMIDE 20 MG TABLET (FP) PO SCH (09:08)
[2019-03-12] MEDS: FOLIC ACID 1 MG TABLET (FP) PO SCH (09:08)
[2019-03-12] MEDS: AZITHROMYCIN IVPB 500 MG/250 ML BAG IVPB SCH (09:08)
[2019-03-12] MEDS: PANTOPRAZOLE 20 MG TABLET (FP) PO SCH (09:08)
--- NOTE | 2019-03-12 09:14 | PN ---
Progress Note, Physician Chief Complaint: feels a little better but still tight - Current Medication List Current Medications: Active Medications Acetaminophen (Tylenol -) 650 mg PO Q6H PRN PRN Reason: FEVER Albuterol Sulfate (Ventolin 0.083% Nebulizer Soln -) 1 amp NEB Q4H PRN PRN Reason: SHORTNESS OF BREATH Albuterol Sulfate (Ventolin Hfa Inhaler -) 1 puff IH TID PRN PRN Reason: SHORT OF BREATH/WHEEZING Albuterol/Ipratropium (Duoneb -) 1 amp NEB Q6H PRN PRN Reason: WHEEZING Allopurinol (Zyloprim -) 100 mg PO DAILY [facility] Last Admin: 03/12/19 09:08 Dose: 100 mg Atorvastatin Calcium (Lipitor -) 10 mg PO HS [facility] Last Admin: 03/11/19 22:08 Dose: 10 mg Budesonide/Formoterol Fumarate (Symbicort 80/4.5mcg -) 2 puff IH BID [facility] Last Admin: 03/11/19 22:09 Dose: 2 puff Clopidogrel Bisulfate (Plavix -) 75 mg PO DAILY [facility] Last Admin: 03/12/19 09:08 Dose: 75 mg Duloxetine HCl (Cymbalta -) 20 mg PO DAILY [facility] Last Admin: 03/11/19 12:37 Dose: 20 mg Famotidine (Pepcid -) 20 mg PO BID [facility] Last Admin: 03/12/19 09:08 Dose: 20 mg Folic Acid (Folic Acid -) 1 mg PO DAILY [facility] Last Admin: 03/12/19 09:08 Dose: 1 mg Gabapentin (Neurontin -) 400 mg PO Q8H PRN PRN Reason: PAIN LEVEL 6-10 Azithromycin (Zithromax 500mg Ivpb (Pre-Docked)) 500 mg in 250 mls @ 250 mls/ hr IVPB DAILY [facility] Last Admin: 03/12/19 09:08 Dose: 250 mls/hr Isosorbide Mononitrate (Imdur -) 30 mg PO HS [facility] Last Admin: 03/11/19 22:08 Dose: 30 mg Lisinopril (Prinivil) 10 mg PO DAILY [facility] Last Admin: 03/12/19 09:08 Dose: 10 mg Metformin HCl (Glucophage -) 500 mg PO BIDAC [facility] Last Admin: 03/12/19 06:52 Dose: 500 mg Methylprednisolone Sodium Succinate (Solu-Medrol -) 40 mg IVPUSH Q12H [facility] Last Admin: 03/12/19 09:08 Dose: 40 mg Metoprolol Succinate (Toprol Xl -) 25 mg PO DAILY [facility] Last Admin: 03/12/19 09:08 Dose: 25 mg Nitroglycerin (Nitrostat -) 0.4 mg SL Q5M PRN PRN Reason: CHEST PAIN Last Admin: 03/09/19 00:11 Dose: 0.4 mg Pantoprazole Sodium (Protonix -) 20 mg PO DAILY [facility] Last Admin: 03/12/19 09:08 Dose: 20 mg Torsemide (Demadex -) 20 mg PO DAILY [facility] Last Admin: 03/12/19 09:08 Dose: 20 mg - Objective Vital Signs: Vital Signs Temperature 98.5 F 03/12/19 08:00 Pulse Rate 84 03/12/19 08:00 Respiratory Rate 15 03/12/19 08:00 Blood Pressure 149/87 03/12/19 08:00 O2 Sat by Pulse Oximetry (%) 99 03/11/19 09:00 Constitutional: Yes: No Distress, Calm Eyes: Yes: Conjunctiva Clear HENT: Yes: Atraumatic Neck: Yes: Supple Cardiovascular: Yes: Regular Rate and Rhythm Respiratory: Yes: Diminished Gastrointestinal: Yes: Soft. No: Tenderness Genitourinary: No: Hematuria Musculoskeletal: No: Joint Stiffness, Joint Swelling Extremities: No: Cold, Cool Edema: No Integumentary: No: Rash, Venous Stasis Changes Neurological: Yes: Alert ...Motor Strength: WNL Psychiatric: Yes: Alert. No: Agitated, Suicidal Ideation Labs: CBC, BMP 03/11/19 07:15 03/11/19 07:15 INR, PTT INR 0.92 (0.83-1.09) 03/08/19 16:50 - ....Imaging Other: Report Reviewed Assessment/Plan 69 y/o F with PMHx of COPD, CHF, DM, HTN, HLD, CAD s/p CABGx2 and stents on ASA/ plavix, NED admitted with wheezing and SOB x 1 week associated yellow sputum productive cough, sore throat ALL PNC; COPD exac; pulm f/u; IV steroids h/o ASHD: cardiology f/u IV zithromax, ENT eval still pending f/u labs d/w pt and staff
[2019-03-12] MEDS: DULoxetine HCL 20 MG CAPSULE.DR PO SCH (09:42)
[2019-03-12] MEDS: BUDESONIDE/FORMETEROL FUMARATE 80/4.5 mcg INHALER IH SCH ×2 (09:42→22:09)
--- NOTE | 2019-03-12 10:18 | PN ---
Progress Note (short form) - Note Progress Note: OOB to chair. Breathing feels a little better today. Somewhat increased sore throat. Reports the she is awaiting an ENT evaluation. Less SOB. Less cough. Intake & Output 03/09/19 03/10/19 03/11/19 03/12/19 23:59 23:59 23:59 23:59 Intake Total 290 139 6061 490 Balance 616 027 2508 490 Weight 182 lb 11.2 oz 192 lb 188 lb 189 lb 6 oz Last Vital Signs Temp Pulse Resp BP Pulse Ox 98.5 F 84 15 149/87 99 03/12/19 08:00 03/12/19 08:00 03/12/19 08:00 03/12/19 08:00 03/11/19 09:00 Active Medications Acetaminophen (Tylenol -) 650 mg PO Q6H PRN PRN Reason: FEVER Albuterol Sulfate (Ventolin 0.083% Nebulizer Soln -) 1 amp NEB Q4H PRN PRN Reason: SHORTNESS OF BREATH Albuterol Sulfate (Ventolin Hfa Inhaler -) 1 puff IH TID PRN PRN Reason: SHORT OF BREATH/WHEEZING Albuterol/Ipratropium (Duoneb -) 1 amp NEB Q6H PRN PRN Reason: WHEEZING Allopurinol (Zyloprim -) 100 mg PO DAILY [facility] Last Admin: 03/12/19 09:08 Dose: 100 mg Atorvastatin Calcium (Lipitor -) 10 mg PO HS [facility] Last Admin: 03/11/19 22:08 Dose: 10 mg Budesonide/Formoterol Fumarate (Symbicort 80/4.5mcg -) 2 puff IH BID [facility] Last Admin: 03/12/19 09:42 Dose: 2 puff Clopidogrel Bisulfate (Plavix -) 75 mg PO DAILY [facility] Last Admin: 03/12/19 09:08 Dose: 75 mg Duloxetine HCl (Cymbalta -) 20 mg PO DAILY [facility] Last Admin: 03/12/19 09:42 Dose: 20 mg Famotidine (Pepcid -) 20 mg PO BID [facility] Last Admin: 03/12/19 09:08 Dose: 20 mg Folic Acid (Folic Acid -) 1 mg PO DAILY [facility] Last Admin: 03/12/19 09:08 Dose: 1 mg Gabapentin (Neurontin -) 400 mg PO Q8H PRN PRN Reason: PAIN LEVEL 6-10 Azithromycin (Zithromax 500mg Ivpb (Pre-Docked)) 500 mg in 250 mls @ 250 mls/ hr IVPB DAILY [facility] Last Admin: 03/12/19 09:08 Dose: 250 mls/hr Isosorbide Mononitrate (Imdur -) 30 mg PO HS [facility] Last Admin: 03/11/19 22:08 Dose: 30 mg Lisinopril (Prinivil) 10 mg PO DAILY [facility] Last Admin: 03/12/19 09:08 Dose: 10 mg Metformin HCl (Glucophage -) 500 mg PO BIDAC [facility] Last Admin: 03/12/19 06:52 Dose: 500 mg Methylprednisolone Sodium Succinate (Solu-Medrol -) 40 mg IVPUSH Q12H [facility] Last Admin: 03/12/19 09:08 Dose: 40 mg Metoprolol Succinate (Toprol Xl -) 25 mg PO DAILY [facility] Last Admin: 03/12/19 09:08 Dose: 25 mg Nitroglycerin (Nitrostat -) 0.4 mg SL Q5M PRN PRN Reason: CHEST PAIN Last Admin: 03/09/19 00:11 Dose: 0.4 mg Pantoprazole Sodium (Protonix -) 20 mg PO DAILY [facility] Last Admin: 03/12/19 09:08 Dose: 20 mg Torsemide (Demadex -) 20 mg PO DAILY [facility] Last Admin: 03/12/19 09:08 Dose: 20 mg Constitutional: Yes: NAD Eyes: Yes: EOM Intact HENT: Yes: Normocephalic Neck: Yes: Trachea Midline, upper airway sounds, No stridor Cardiovascular: Yes: Regular Rate and Rhythm Respiratory: Yes: Less scattered Wheezes and Rhonchi Gastrointestinal: Yes: Normal Bowel Sounds, Soft, Abdomen, Obese Renal/: Yes: WNL Breast(s): Yes: WNL Musculoskeletal: Yes: WNL Edema: LLE: 1+, RLE: 1+ Integumentary: Yes: WNL Neurological: Yes: WNL, Alert Labs: Laboratory Results - last 24 hr 03/11/19 03/11/19 03/11/19 11:43 17:27 21:11 POC Glucometer 213 234 225 03/12/19 06:54 POC Glucometer 191 Problem List - Problems (1) COPD exacerbation Code(s): J44.1 - CHRONIC OBSTRUCTIVE PULMONARY DISEASE W (ACUTE) EXACERBATION (2) Obese Code(s): E66.9 - OBESITY, UNSPECIFIED (3) SOB (shortness of breath) Code(s): R06.02 - SHORTNESS OF BREATH (4) Arteriosclerotic heart disease (ASHD) Code(s): I25.10 - ATHSCL HEART DISEASE OF [place] CORONARY ARTERY W/O ANG PCTRS (5) Diabetes Code(s): E11.9 - TYPE 2 DIABETES MELLITUS WITHOUT COMPLICATIONS (6) HTN (hypertension) Code(s): I10 - ESSENTIAL (PRIMARY) HYPERTENSION (7) S/P CABG (coronary artery bypass graft) Code(s): Z95.1 - PRESENCE OF AORTOCORONARY BYPASS GRAFT Assessment/Plan (?) OSAS Can likely change to Prednisone in the next 24 to 48 hours [employer] ENT evaluation called Will need sleep apnea workup after DC Dr Norman
--- NOTE | 2019-03-12 10:34 | PN ---
Progress Note, Physician History of Present Illness: 69-year-old black female with history of COPD/bronchial asthma; CAD status post CABG and a few stents, asthma, systolic/diastolic CHF (low-normal LVEF; moderate MR; abnormal diastolic compliance; mild LVH), obesity, sleep apnea, sedentary lifestyle, depression, here today complaining of worsening shortness of breath. Patient states she was seen by Dr. Jones 3 days ago at that time was started on steroids has been using inhaler at home. Today she called Dr. Jones because she felt her shortness of breath was getting worse denies any worsening leg swelling no history of PE or DVT denies any current chest pain. Patient states that she has been taking her prednisone as prescribed has been coughing up some phlegm which is yellowish in color and different for her baseline does not wear home O2 denies any other exacerbating factors. - Current Medication List Current Medications: Active Medications Acetaminophen (Tylenol -) 650 mg PO Q6H PRN PRN Reason: FEVER Albuterol Sulfate (Ventolin 0.083% Nebulizer Soln -) 1 amp NEB Q4H PRN PRN Reason: SHORTNESS OF BREATH Albuterol Sulfate (Ventolin Hfa Inhaler -) 1 puff IH TID PRN PRN Reason: SHORT OF BREATH/WHEEZING Albuterol/Ipratropium (Duoneb -) 1 amp NEB Q6H PRN PRN Reason: WHEEZING Allopurinol (Zyloprim -) 100 mg PO DAILY [facility] Last Admin: 03/12/19 09:08 Dose: 100 mg Atorvastatin Calcium (Lipitor -) 10 mg PO HS [facility] Last Admin: 03/11/19 22:08 Dose: 10 mg Budesonide/Formoterol Fumarate (Symbicort 80/4.5mcg -) 2 puff IH BID [facility] Last Admin: 03/12/19 09:42 Dose: 2 puff Clopidogrel Bisulfate (Plavix -) 75 mg PO DAILY [facility] Last Admin: 03/12/19 09:08 Dose: 75 mg Duloxetine HCl (Cymbalta -) 20 mg PO DAILY [facility] Last Admin: 03/12/19 09:42 Dose: 20 mg Famotidine (Pepcid -) 20 mg PO BID [facility] Last Admin: 03/12/19 09:08 Dose: 20 mg Folic Acid (Folic Acid -) 1 mg PO DAILY [facility] Last Admin: 03/12/19 09:08 Dose: 1 mg Gabapentin (Neurontin -) 400 mg PO Q8H PRN PRN Reason: PAIN LEVEL 6-10 Azithromycin (Zithromax 500mg Ivpb (Pre-Docked)) 500 mg in 250 mls @ 250 mls/ hr IVPB DAILY [facility] Last Admin: 03/12/19 09:08 Dose: 250 mls/hr Isosorbide Mononitrate (Imdur -) 30 mg PO HS [facility] Last Admin: 03/11/19 22:08 Dose: 30 mg Lisinopril (Prinivil) 10 mg PO DAILY [facility] Last Admin: 03/12/19 09:08 Dose: 10 mg Metformin HCl (Glucophage -) 500 mg PO BIDAC [facility] Last Admin: 03/12/19 06:52 Dose: 500 mg Methylprednisolone Sodium Succinate (Solu-Medrol -) 40 mg IVPUSH Q12H [facility] Last Admin: 03/12/19 09:08 Dose: 40 mg Metoprolol Succinate (Toprol Xl -) 25 mg PO DAILY [facility] Last Admin: 03/12/19 09:08 Dose: 25 mg Nitroglycerin (Nitrostat -) 0.4 mg SL Q5M PRN PRN Reason: CHEST PAIN Last Admin: 03/09/19 00:11 Dose: 0.4 mg Pantoprazole Sodium (Protonix -) 20 mg PO DAILY [facility] Last Admin: 03/12/19 09:08 Dose: 20 mg Torsemide (Demadex -) 20 mg PO DAILY [facility] Last Admin: 03/12/19 09:08 Dose: 20 mg - Objective Vital Signs: Vital Signs Temperature 98.5 F 03/12/19 08:00 Pulse Rate 84 03/12/19 08:00 Respiratory Rate 15 03/12/19 08:00 Blood Pressure 149/87 03/12/19 08:00 O2 Sat by Pulse Oximetry (%) 99 03/11/19 09:00 Eyes: Yes: WNL, Conjunctiva Clear, EOM Intact HENT: Yes: WNL, Atraumatic, Normocephalic Neck: Yes: WNL, Supple, Trachea Midline Cardiovascular: Yes: WNL, Regular Rate and Rhythm Respiratory: Yes: WNL, Regular, CTA Bilaterally Gastrointestinal: Yes: WNL, Normal Bowel Sounds Genitourinary: Yes: WNL Musculoskeletal: Yes: WNL Extremities: Yes: WNL Edema: No Integumentary: Yes: WNL Neurological: Yes: WNL, Alert, Oriented ...Motor Strength: WNL Psychiatric: Yes: WNL Labs: CBC, BMP 03/11/19 07:15 03/11/19 07:15 INR, PTT INR 0.92 (0.83-1.09) 03/08/19 16:50 Assessment/Plan 1. COPD exacerbation 2. CAD s/p CABG, angina pectoris 3. HTN 4. Hypercholesterolemia 5. T2DM 6. NED PLAN: 1. Bronchodilator, O2 and steroid taper 2. Continue Metoprolol ER 25 mg QD, Isosorbide 30 mg QD and Lisinopril 10 mg QD as tolerated 3. Continue Atorvastatin 10 mg QHS 4. Plavix 75 mg QD 5. Continue Demadex 20 mg QD 6. Monitor renal function and electrolytes 7. Sleep study and treatment of NED to follow as outpatient
[2019-03-12 14:11] VITALS: BMI 35.1
[2019-03-12] MEDS: ISOSORBIDE MONONITRATE 30 MG TAB.SR.24H (FP) PO SCH (22:06)
[2019-03-12] MEDS: ATORVASTATIN CA 10 MG TABLET (FP) PO SCH (22:06)
[2019-03-13] MEDS: metFORMIN HCL 500 MG TABLET (FP) PO SCH ×2 (06:26→15:36)
[2019-03-13 08:40] LABS: BASO % 0.2 % (0-2.0); HEMATOCRIT 45.8 % (32.4-45.2); HEMOGLOBIN 14.2 GM/dL (10.7-15.3); MCH 22.7 pg (25.7-33.7); MCHC 31.1 g/dl (32.0-36.0); MEAN PLT VOLUME 8.2 fl (7.5-11.1); MONO % 7.5 % (3.8-10.2); NEUT % 82.3 % (42.8-82.8); PLATELET COUNT 360 K/MM3 (134-434); RBC 6.27 M/mm3 (3.60-5.2); RDW 15.4 % (11.6-15.6); WHITE BLOOD COUNT 16.4 K/mm3 (4.0-10.0)
[2019-03-13] MEDS ORDERED: PT OWN MED DRAWER 7, Y5N ONE (09:00)
[2019-03-13] MEDS: LISINOPRIL 5 MG TABLET (FP) PO SCH (09:04)
[2019-03-13] MEDS: PANTOPRAZOLE 20 MG TABLET (FP) PO SCH (09:04)
[2019-03-13] MEDS: methylPREDNISolone NA SUCC 40 MG/1 ML VIAL IVPUSH SCH (09:04)
[2019-03-13] MEDS: FAMOTIDINE 20 MG TABLET PO SCH ×2 (09:04→21:18)
[2019-03-13] MEDS: CLOPIDOGREL BISULFATE 75 MG TABLET (FP) PO SCH (09:04)
[2019-03-13] MEDS: TORSEMIDE 20 MG TABLET (FP) PO SCH (09:04)
[2019-03-13] MEDS: FOLIC ACID 1 MG TABLET (FP) PO SCH (09:04)
[2019-03-13] MEDS: DULoxetine HCL 20 MG CAPSULE.DR PO SCH (09:04)
[2019-03-13] MEDS: metoPROLOL SUCCINATE 25 MG TAB.SR.24H (FP) PO SCH (09:04)
[2019-03-13] MEDS: AZITHROMYCIN IVPB 500 MG/250 ML BAG IVPB SCH (09:04)
[2019-03-13] MEDS: ALLOPURINOL 100 MG TABLET (FP) PO SCH (09:04)
[2019-03-13 09:07] LABS: ALBUMIN 3.2 g/dl (3.4-5.0); BILIRUBIN,TOTAL 0.4 mg/dL (0.2-1); BLOOD UREA NITROGEN 36.9 mg/dL (7-18); CALCIUM 9.3 mg/dL (8.5-10.1); CREATININE 0.9 mg/dL (0.55-1.3); POTASSIUM 3.9 mmol/L (3.5-5.1); TOT PROT 6.9 g/dl (6.4-8.2)
[2019-03-13] MEDS: BUDESONIDE/FORMETEROL FUMARATE 80/4.5 mcg INHALER IH SCH ×2 (09:12→21:20)
--- NOTE | 2019-03-13 10:52 | PN ---
Progress Note (short form) - Note Progress Note: Resting in bed in NAD. Breathing feels a little better today. Sore throat feels a little better. Less SOB. Less cough. Intake & Output 03/10/19 03/11/19 03/12/19 03/13/19 23:59 23:59 23:59 23:59 Intake Total 810 1460 1340 270 Balance 810 1460 1340 270 Weight 192 lb 188 lb 189 lb 6 oz 191 lb 4 oz Last Vital Signs Temp Pulse Resp BP Pulse Ox 98.0 F 73 18 149/74 98 03/13/19 06:00 03/13/19 06:00 03/13/19 06:00 03/13/19 06:00 03/12/19 21:00 Active Medications Acetaminophen (Tylenol -) 650 mg PO Q6H PRN PRN Reason: FEVER Albuterol Sulfate (Ventolin 0.083% Nebulizer Soln -) 1 amp NEB Q4H PRN PRN Reason: SHORTNESS OF BREATH Albuterol Sulfate (Ventolin Hfa Inhaler -) 1 puff IH TID PRN PRN Reason: SHORT OF BREATH/WHEEZING Albuterol/Ipratropium (Duoneb -) 1 amp NEB Q6H PRN PRN Reason: WHEEZING Allopurinol (Zyloprim -) 100 mg PO DAILY [facility] Last Admin: 03/13/19 09:04 Dose: 100 mg Atorvastatin Calcium (Lipitor -) 10 mg PO HS [facility] Last Admin: 03/12/19 22:06 Dose: 10 mg Budesonide/Formoterol Fumarate (Symbicort 80/4.5mcg -) 2 puff IH BID [facility] Last Admin: 03/13/19 09:12 Dose: 2 puff Clopidogrel Bisulfate (Plavix -) 75 mg PO DAILY [facility] Last Admin: 03/13/19 09:04 Dose: 75 mg Duloxetine HCl (Cymbalta -) 20 mg PO DAILY [facility] Last Admin: 03/13/19 09:04 Dose: 20 mg Famotidine (Pepcid -) 20 mg PO BID [facility] Last Admin: 03/13/19 09:04 Dose: 20 mg Folic Acid (Folic Acid -) 1 mg PO DAILY [facility] Last Admin: 03/13/19 09:04 Dose: 1 mg Gabapentin (Neurontin -) 400 mg PO Q8H PRN PRN Reason: PAIN LEVEL 6-10 Azithromycin (Zithromax 500mg Ivpb (Pre-Docked)) 500 mg in 250 mls @ 250 mls/ hr IVPB DAILY [facility] Last Admin: 03/13/19 09:04 Dose: 250 mls/hr Isosorbide Mononitrate (Imdur -) 30 mg PO HS [facility] Last Admin: 03/12/19 22:06 Dose: 30 mg Lisinopril (Prinivil) 10 mg PO DAILY [facility] Last Admin: 03/13/19 09:04 Dose: 10 mg Metformin HCl (Glucophage -) 500 mg PO BIDAC [facility] Last Admin: 03/13/19 06:26 Dose: 500 mg Methylprednisolone Sodium Succinate (Solu-Medrol -) 40 mg IVPUSH Q12H [facility] Last Admin: 03/13/19 09:04 Dose: 40 mg Metoprolol Succinate (Toprol Xl -) 25 mg PO DAILY [facility] Last Admin: 03/13/19 09:04 Dose: 25 mg Nitroglycerin (Nitrostat -) 0.4 mg SL Q5M PRN PRN Reason: CHEST PAIN Last Admin: 03/09/19 00:11 Dose: 0.4 mg Pantoprazole Sodium (Protonix -) 20 mg PO DAILY [facility] Last Admin: 03/13/19 09:04 Dose: 20 mg Torsemide (Demadex -) 20 mg PO DAILY [facility] Last Admin: 03/13/19 09:04 Dose: 20 mg Constitutional: Yes: NAD Eyes: Yes: EOM Intact HENT: Yes: Normocephalic Neck: Yes: Trachea Midline, upper airway sounds, No stridor Cardiovascular: Yes: Regular Rate and Rhythm Respiratory: Yes: Less scattered Wheezes and Rhonchi Gastrointestinal: Yes: Normal Bowel Sounds, Soft, Abdomen, Obese Renal/: Yes: WNL Breast(s): Yes: WNL Musculoskeletal: Yes: WNL Edema: LLE: 1+, RLE: 1+ Integumentary: Yes: WNL Neurological: Yes: WNL, Alert Labs: Laboratory Results - last 24 hr 03/12/19 03/12/19 03/13/19 16:04 22:35 05:24 WBC RBC Hgb Hct MCV MCH MCHC RDW Plt Count MPV Absolute Neuts (auto) Neutrophils % Lymphocytes % Monocytes % Eosinophils % Basophils % Nucleated RBC % Sodium Potassium Chloride Carbon Dioxide Anion Gap BUN Creatinine Est GFR (CKD-EPI)AfAm Est GFR (CKD-EPI)NonAf POC Glucometer 238 156 231 Random Glucose Calcium Total Bilirubin AST ALT Alkaline Phosphatase Total Protein Albumin 03/13/19 03/13/19 06:00 08:10 WBC 16.4 H RBC 6.27 H Hgb 14.2 Hct 45.8 H MCV 73.0 L MCH 22.7 L MCHC 31.1 L RDW 15.4 Plt Count 360 MPV 8.2 Absolute Neuts (auto) 13.5 H Neutrophils % 82.3 Lymphocytes % 10.0 D Monocytes % 7.5 Eosinophils % 0.0 Basophils % 0.2 Nucleated RBC % 0 Sodium 140 Potassium 3.9 Chloride 99 Carbon Dioxide 32 Anion Gap 8 BUN 36.9 H Creatinine 0.9 Est GFR (CKD-EPI)AfAm 74.56 Est GFR (CKD-EPI)NonAf 64.33 POC Glucometer Random Glucose 176 H Calcium 9.3 Total Bilirubin 0.4 AST 12 L ALT 34 Alkaline Phosphatase 75 Total Protein 6.9 Albumin 3.2 L Problem List - Problems (1) COPD exacerbation Code(s): J44.1 - CHRONIC OBSTRUCTIVE PULMONARY DISEASE W (ACUTE) EXACERBATION (2) Obese Code(s): E66.9 - OBESITY, UNSPECIFIED (3) SOB (shortness of breath) Code(s): R06.02 - SHORTNESS OF BREATH (4) Arteriosclerotic heart disease (ASHD) Code(s): I25.10 - ATHSCL HEART DISEASE OF [place] CORONARY ARTERY W/O ANG PCTRS (5) Diabetes Code(s): E11.9 - TYPE 2 DIABETES MELLITUS WITHOUT COMPLICATIONS (6) HTN (hypertension) Code(s): I10 - ESSENTIAL (PRIMARY) HYPERTENSION (7) S/P CABG (coronary artery bypass graft) Code(s): Z95.1 - PRESENCE OF AORTOCORONARY BYPASS GRAFT Assessment/Plan (?) [facility] evaluation pending Change to Prednisone BRONCHODILATORS ANTIBIOTICS Will need sleep apnea workup after DC Dr Norman
[2019-03-13] MEDS: predniSONE 20 MG TABLET (UD) PO SCH (11:05)
--- NOTE | 2019-03-13 14:15 | PN ---
Progress Note, Physician Chief Complaint: OOB to chair feels much better; taper steroids no wheezing much less cough - Current Medication List Current Medications: Active Medications Acetaminophen (Tylenol -) 650 mg PO Q6H PRN PRN Reason: FEVER Albuterol Sulfate (Ventolin 0.083% Nebulizer Soln -) 1 amp NEB Q4H PRN PRN Reason: SHORTNESS OF BREATH Albuterol Sulfate (Ventolin Hfa Inhaler -) 1 puff IH TID PRN PRN Reason: SHORT OF BREATH/WHEEZING Albuterol/Ipratropium (Duoneb -) 1 amp NEB Q6H PRN PRN Reason: WHEEZING Allopurinol (Zyloprim -) 100 mg PO DAILY [facility] Last Admin: 03/13/19 09:04 Dose: 100 mg Atorvastatin Calcium (Lipitor -) 10 mg PO HS [facility] Last Admin: 03/12/19 22:06 Dose: 10 mg Budesonide/Formoterol Fumarate (Symbicort 80/4.5mcg -) 2 puff IH BID [facility] Last Admin: 03/13/19 09:12 Dose: 2 puff Clopidogrel Bisulfate (Plavix -) 75 mg PO DAILY [facility] Last Admin: 03/13/19 09:04 Dose: 75 mg Duloxetine HCl (Cymbalta -) 20 mg PO DAILY [facility] Last Admin: 03/13/19 09:04 Dose: 20 mg Famotidine (Pepcid -) 20 mg PO BID [facility] Last Admin: 03/13/19 09:04 Dose: 20 mg Folic Acid (Folic Acid -) 1 mg PO DAILY [facility] Last Admin: 03/13/19 09:04 Dose: 1 mg Gabapentin (Neurontin -) 400 mg PO Q8H PRN PRN Reason: PAIN LEVEL 6-10 Azithromycin (Zithromax 500mg Ivpb (Pre-Docked)) 500 mg in 250 mls @ 250 mls/ hr IVPB DAILY [facility] Last Admin: 03/13/19 09:04 Dose: 250 mls/hr Isosorbide Mononitrate (Imdur -) 30 mg PO HS [facility] Last Admin: 03/12/19 22:06 Dose: 30 mg Lisinopril (Prinivil) 10 mg PO DAILY [facility] Last Admin: 03/13/19 09:04 Dose: 10 mg [facility] Last Admin: 03/13/19 06:26 Dose: 500 mg Metoprolol Succinate (Toprol Xl -) 25 mg PO DAILY [facility] Last Admin: 03/13/19 09:04 Dose: 25 mg Nitroglycerin (Nitrostat -) 0.4 mg SL Q5M PRN PRN Reason: CHEST PAIN Last Admin: 03/09/19 00:11 Dose: 0.4 mg Pantoprazole Sodium (Protonix -) 20 mg PO DAILY [facility] Last Admin: 03/13/19 09:04 Dose: 20 mg Prednisone (Deltasone -) 40 mg PO DAILY [facility] Last Admin: 03/13/19 11:05 Dose: Not Given Torsemide (Demadex -) 20 mg PO DAILY [facility] Last Admin: 03/13/19 09:04 Dose: 20 mg - Objective Vital Signs: Vital Signs Temperature 98.0 F 03/13/19 13:37 Pulse Rate 78 03/13/19 13:37 Respiratory Rate 18 03/13/19 13:37 Blood Pressure 140/71 03/13/19 13:37 O2 Sat by Pulse Oximetry (%) 96 03/13/19 09:00 Constitutional: Yes: No Distress, Calm Eyes: Yes: Conjunctiva Clear HENT: Yes: Atraumatic Neck: Yes: Supple Cardiovascular: Yes: Regular Rate and Rhythm Respiratory: Yes: CTA Bilaterally Gastrointestinal: Yes: Soft. No: Tenderness Genitourinary: No: Hematuria Musculoskeletal: No: Joint Stiffness, Joint Swelling Extremities: No: Cold, Cool Edema: No Integumentary: No: Rash, Venous Stasis Changes Neurological: Yes: Alert ...Motor Strength: WNL Psychiatric: Yes: Alert Labs: CBC, BMP 03/13/19 08:10 03/13/19 06:00 INR, PTT INR 0.92 (0.83-1.09) 03/08/19 16:50 Assessment/Plan 69 y/o F with PMHx of COPD, CHF, DM, HTN, HLD, CAD s/p CABGx2 and stents on ASA/ plavix, NED admitted with wheezing and SOB x 1 week associated yellow sputum productive cough, sore throat ALL PNC; COPD exac; better pulm f/u; IV steroids h/o ASHD: cardiology f/u IV zithromax f/u labs falls, DVT pfx; d/w pt and staff
--- NOTE | 2019-03-13 14:43 | PN ---
Progress Note, Physician Chief Complaint: Pt more comfortable, but still has occasional wheszing. History of Present Illness: 69-year-old black female with history of COPD/bronchial asthma; CAD status post CABG and a few stents, asthma, systolic/diastolic CHF (low-normal LVEF; moderate MR; abnormal diastolic compliance; mild LVH), obesity, sleep apnea, sedentary lifestyle, depression, here today complaining of worsening shortness of breath. Patient states she was seen by Dr. Jones 3 days ago at that time was started on steroids has been using inhaler at home. Today she called Dr. Jones because she felt her shortness of breath was getting worse denies any worsening leg swelling no history of PE or DVT denies any current chest pain. Patient states that she has been taking her prednisone as prescribed has been coughing up some phlegm which is yellowish in color and different for her baseline does not wear home O2 denies any other exacerbating factors. - Current Medication List Current Medications: Active Medications Acetaminophen (Tylenol -) 650 mg PO Q6H PRN PRN Reason: FEVER Albuterol Sulfate (Ventolin 0.083% Nebulizer Soln -) 1 amp NEB Q4H PRN PRN Reason: SHORTNESS OF BREATH Albuterol Sulfate (Ventolin Hfa Inhaler -) 1 puff IH TID PRN PRN Reason: SHORT OF BREATH/WHEEZING Albuterol/Ipratropium (Duoneb -) 1 amp NEB Q6H PRN PRN Reason: WHEEZING Allopurinol (Zyloprim -) 100 mg PO DAILY [facility] Last Admin: 03/13/19 09:04 Dose: 100 mg Atorvastatin Calcium (Lipitor -) 10 mg PO HS [facility] Last Admin: 03/12/19 22:06 Dose: 10 mg Budesonide/Formoterol Fumarate (Symbicort 80/4.5mcg -) 2 puff IH BID [facility] Last Admin: 03/13/19 09:12 Dose: 2 puff Clopidogrel Bisulfate (Plavix -) 75 mg PO DAILY [facility] Last Admin: 03/13/19 09:04 Dose: 75 mg Duloxetine HCl (Cymbalta -) 20 mg PO DAILY [facility] Last Admin: 03/13/19 09:04 Dose: 20 mg Famotidine (Pepcid -) 20 mg PO BID [facility] Last Admin: 03/13/19 09:04 Dose: 20 mg Folic Acid (Folic Acid -) 1 mg PO DAILY [facility] Last Admin: 03/13/19 09:04 Dose: 1 mg Gabapentin (Neurontin -) 400 mg PO Q8H PRN PRN Reason: PAIN LEVEL 6-10 Azithromycin (Zithromax 500mg Ivpb (Pre-Docked)) 500 mg in 250 mls @ 250 mls/ hr IVPB DAILY [facility] Last Admin: 03/13/19 09:04 Dose: 250 mls/hr Isosorbide Mononitrate (Imdur -) 30 mg PO HS [facility] Last Admin: 03/12/19 22:06 Dose: 30 mg Lisinopril (Prinivil) 10 mg PO DAILY [facility] Last Admin: 03/13/19 09:04 Dose: 10 mg Metformin HCl (Glucophage -) 500 mg PO BIDAC [facility] Last Admin: 03/13/19 06:26 Dose: 500 mg Metoprolol Succinate (Toprol Xl -) 25 mg PO DAILY [facility] Last Admin: 03/13/19 09:04 Dose: 25 mg Nitroglycerin (Nitrostat -) 0.4 mg SL Q5M PRN PRN Reason: CHEST PAIN Last Admin: 03/09/19 00:11 Dose: 0.4 mg Pantoprazole Sodium (Protonix -) 20 mg PO DAILY [facility] Last Admin: 03/13/19 09:04 Dose: 20 mg Prednisone (Deltasone -) 40 mg PO DAILY [facility] Last Admin: 03/13/19 11:05 Dose: Not Given Torsemide (Demadex -) 20 mg PO DAILY [facility] Last Admin: 03/13/19 09:04 Dose: 20 mg - Objective Vital Signs: Vital Signs Temperature 98.0 F 03/13/19 13:37 Pulse Rate 78 03/13/19 13:37 Respiratory Rate 18 03/13/19 13:37 Blood Pressure 140/71 03/13/19 13:37 O2 Sat by Pulse Oximetry (%) 96 03/13/19 09:00 Constitutional: Yes: Obese Eyes: Yes: WNL HENT: Yes: WNL Neck: Yes: WNL Cardiovascular: Yes: Regular Rate and Rhythm, S1, S2, S4 Respiratory: Yes: Diminished, Wheezes Gastrointestinal: Yes: Soft, Abdomen, Obese ...Rectal Exam: Yes: Deferred Genitourinary: No: Anuria Breast(s): Yes: WNL Musculoskeletal: Yes: Joint Stiffness, Joint Swelling, Muscle Weakness Extremities: Yes: Cool Edema: Yes Edema: LLE: Trace, RLE: Trace Peripheral Pulses WNL: Yes Integumentary: Yes: WNL Neurological: Yes: Alert, Oriented, Unsteady Gait, Weakness Psychiatric: Yes: Alert, Oriented, Other (depression) Labs: CBC, BMP 03/13/19 08:10 03/13/19 06:00 INR, PTT INR 0.92 (0.83-1.09) 03/08/19 16:50 Abnormal Lab Results 03/14/19 03/14/19 09:03 09:03 WBC 19.5 H RBC 6.68 H Hgb 15.4 H Hct 48.2 H MCV 72.2 L MCH 23.1 L MCHC 31.9 L RDW 15.7 H BUN 42.8 H Random Glucose 113 H - ....Imaging Chest X-ray: Image Reviewed EKG: Image Reviewed Problem List - Problems (1) COPD exacerbation Assessment/Plan: Bronchodilators, O2, steroids per continuous improvement coach. F?u CXR, PA and Lateral. If pt has true bronchial asthma component, would consider titrating off metoprolol; however, she has been on the agent for years (CAD; low-normal LVEF) , and until relatively recently appeared to be tolerating it. Code(s): J44.1 - CHRONIC OBSTRUCTIVE PULMONARY DISEASE W (ACUTE) EXACERBATION (2) ACS (acute coronary syndrome) Assessment/Plan: TNI < 0.02; f/u EKG and TNI serially. EKG: no significant change (NSR; septal infarct). BNP mildly elevated. Restart lisinopril 10 mg daily. Recommend adding SGLT-2 inhibitor for DM and benefits in lowering cardiac risks. The importance of diet modification, weight loss, and exercise was discussed. Code(s): I24.9 - ACUTE ISCHEMIC HEART DISEASE, UNSPECIFIED (3) Obese Code(s): E66.9 - OBESITY, UNSPECIFIED Qualifiers: Body mass index: BMI 60.0-69.9 (4) Sedentary lifestyle Code(s): Z91.89 - OTH PERSONAL RISK FACTORS, NOT ELSEWHERE CLASSIFIED (5) Diabetes Assessment/Plan: Please see under "Acute [place] Syndrome" HGBA1c good at 6.1 Recommend SGLT-2 inhibitor. Code(s): E11.9 - TYPE 2 DIABETES MELLITUS WITHOUT COMPLICATIONS (6) HTN (hypertension) Assessment/Plan: On metoprolol ER and lisinopril. Problems reviewed: Yes Code(s): I10 - ESSENTIAL (PRIMARY) HYPERTENSION (7) Hyperlipidemia Assessment/Plan: On statin (agree with atorvastatin, a more potent agent than the pravastatin she had been on previously). LDL will-controlled (40s mg/dl); HDL > 80 mg/dl. TSH WNL 12/2018 Code(s): E78.5 - HYPERLIPIDEMIA, UNSPECIFIED (8) S/P CABG (coronary artery bypass graft) Code(s): Z95.1 - PRESENCE OF AORTOCORONARY BYPASS GRAFT (9) Depression Assessment/Plan: Pt has been depressed for years, but lately has felt worse, principally related to childhood memories. Denies suicidal ideation. She is presently on Cymbalta. She would like to see a psychiatrist at some point in the near future. Code(s): F32.9 - MAJOR DEPRESSIVE DISORDER, SINGLE EPISODE, UNSPECIFIED (10) Sleep apnea Assessment/Plan: F/u with Dr. Jones. The importance of weight loss, dietary modification, and exercise in benefiting her overall health was emphasized. Code(s): G47.30 - SLEEP APNEA, UNSPECIFIED
[2019-03-13] MEDS: ALBUTEROL SO4 2.5/IPRATROPIUM 0.5 INH SOL 3 ML VIAL.NEB. NEB PRN (20:20)
[2019-03-13] MEDS: ISOSORBIDE MONONITRATE 30 MG TAB.SR.24H (FP) PO SCH (21:18)
[2019-03-13] MEDS: ATORVASTATIN CA 10 MG TABLET (FP) PO SCH (21:18)
[2019-03-14] MEDS: metFORMIN HCL 500 MG TABLET (FP) PO SCH ×2 (06:17→16:40)
[2019-03-14] MEDS: INSULIN SLIDING SCALE (NOVOLOG) 1 VIAL SQ SCH ×2 (06:17→16:41)
[2019-03-14] MEDS ORDERED: INSULIN (NOVOLOG) ASPART 100 UNITS/ML 10ML VIAL ONE ×2 (06:46→16:32)
--- NOTE | 2019-03-14 08:23 | PN ---
Progress Note, Physician Chief Complaint: less sore throat, still coughing - Current Medication List Current Medications: Active Medications Acetaminophen (Tylenol -) 650 mg PO Q6H PRN PRN Reason: FEVER Albuterol Sulfate (Ventolin 0.083% Nebulizer Soln -) 1 amp NEB Q4H PRN PRN Reason: SHORTNESS OF BREATH Albuterol Sulfate (Ventolin Hfa Inhaler -) 1 puff IH TID PRN PRN Reason: SHORT OF BREATH/WHEEZING Albuterol/Ipratropium (Duoneb -) 1 amp NEB Q6H PRN PRN Reason: WHEEZING Last Admin: 03/13/19 20:20 Dose: 1 amp Allopurinol (Zyloprim -) 100 mg PO DAILY [facility] Last Admin: 03/13/19 09:04 Dose: 100 mg Atorvastatin Calcium (Lipitor -) 10 mg PO HS [facility] Last Admin: 03/13/19 21:18 Dose: 10 mg Budesonide/Formoterol Fumarate (Symbicort 80/4.5mcg -) 2 puff IH BID [facility] Last Admin: 03/13/19 21:20 Dose: 2 puff Clopidogrel Bisulfate (Plavix -) 75 mg PO DAILY [facility] Last Admin: 03/13/19 09:04 Dose: 75 mg Duloxetine HCl (Cymbalta -) 20 mg PO DAILY [facility] Last Admin: 03/13/19 09:04 Dose: 20 mg Famotidine (Pepcid -) 20 mg PO BID [facility] Last Admin: 03/13/19 21:18 Dose: 20 mg Folic Acid (Folic Acid -) 1 mg PO DAILY [facility] Last Admin: 03/13/19 09:04 Dose: 1 mg Gabapentin (Neurontin -) 400 mg PO Q8H PRN PRN Reason: PAIN LEVEL 6-10 Azithromycin (Zithromax 500mg Ivpb (Pre-Docked)) 500 mg in 250 mls @ 250 mls/ hr IVPB DAILY [facility] Last Admin: 03/13/19 09:04 Dose: 250 mls/hr Insulin Aspart (Novolog Vial Sliding Scale -) 1 vial SQ BIDAC [facility] Last Admin: 03/14/19 06:17 Dose: 2 units Isosorbide Mononitrate (Imdur -) 30 mg PO HS [facility] Last Admin: 03/13/19 21:18 Dose: 30 mg Lisinopril (Prinivil) 10 mg PO DAILY [facility] Last Admin: 03/13/19 09:04 Dose: 10 mg Metformin HCl (Glucophage -) 500 mg PO BIDAC [facility] Last Admin: 03/14/19 06:17 Dose: 500 mg Metoprolol Succinate (Toprol Xl -) 25 mg PO DAILY [facility] Last Admin: 03/13/19 09:04 Dose: 25 mg Nitroglycerin (Nitrostat -) 0.4 mg SL Q5M PRN PRN Reason: CHEST PAIN Last Admin: 03/09/19 00:11 Dose: 0.4 mg Pantoprazole Sodium (Protonix -) 20 mg PO DAILY [facility] Last Admin: 03/13/19 09:04 Dose: 20 mg Prednisone (Deltasone -) 40 mg PO DAILY [facility] Last Admin: 03/13/19 11:05 Dose: Not Given Torsemide (Demadex -) 20 mg PO DAILY [facility] Last Admin: 03/13/19 09:04 Dose: 20 mg - Objective Vital Signs: Vital Signs Temperature 97.9 F 03/14/19 05:55 Pulse Rate 76 03/14/19 05:55 Respiratory Rate 20 03/14/19 05:55 Blood Pressure 133/79 03/14/19 05:55 O2 Sat by Pulse Oximetry (%) 97 03/13/19 20:31 Constitutional: Yes: No Distress Eyes: Yes: Conjunctiva Clear HENT: Yes: Atraumatic Neck: Yes: Supple Cardiovascular: Yes: Regular Rate and Rhythm Respiratory: Yes: Diminished Gastrointestinal: Yes: Soft. No: Tenderness Genitourinary: No: Hematuria Musculoskeletal: No: Joint Stiffness, Joint Swelling Extremities: No: Cold, Cool Integumentary: No: Rash, Venous Stasis Changes Neurological: Yes: Alert ...Motor Strength: WNL Psychiatric: Yes: Alert Labs: CBC, BMP 03/13/19 08:10 03/13/19 06:00 INR, PTT INR 0.92 (0.83-1.09) 03/08/19 16:50 - ....Imaging Other: Report Reviewed Assessment/Plan 69 y/o F with PMHx of COPD, CHF, DM, HTN, HLD, CAD s/p CABGx2 and stents on ASA/ plavix, NED admitted with wheezing and SOB x 1 week associated yellow sputum productive cough, sore throat ALL PNC; COPD exac; better pulm f/u; IV steroids h/o ASHD: cardiology f/u IV zithromax f/u labs ENT eval for sore throat falls, DVT pfx; d/w pt and staff
[2019-03-14] MEDS: ALBUTEROL SO4 2.5/IPRATROPIUM 0.5 INH SOL 3 ML VIAL.NEB. NEB PRN ×2 (09:15→19:25)
[2019-03-14 09:33] LABS: HEMATOCRIT 48.2 % (32.4-45.2); HEMOGLOBIN 15.4 GM/dL (10.7-15.3); MCH 23.1 pg (25.7-33.7); MCHC 31.9 g/dl (32.0-36.0); MEAN CELL VOLUME 72.2 fl (80-96); MEAN PLT VOLUME 8.1 fl (7.5-11.1); PLATELET COUNT 386 K/MM3 (134-434); RBC 6.68 M/mm3 (3.60-5.2); RDW 15.7 % (11.6-15.6); WHITE BLOOD COUNT 19.5 K/mm3 (4.0-10.0)
[2019-03-14 10:21] LABS: BLOOD UREA NITROGEN 42.8 mg/dL (7-18); CALCIUM 9.5 mg/dL (8.5-10.1); CREATININE 1.1 mg/dL (0.55-1.3); POTASSIUM 3.7 mmol/L (3.5-5.1)
[2019-03-14] MEDS: LISINOPRIL 5 MG TABLET (FP) PO SCH (10:33)
[2019-03-14] MEDS: AZITHROMYCIN IVPB 500 MG/250 ML BAG IVPB SCH (10:33)
[2019-03-14] MEDS: TORSEMIDE 20 MG TABLET (FP) PO SCH (10:34)
[2019-03-14] MEDS: PANTOPRAZOLE 20 MG TABLET (FP) PO SCH (10:34)
[2019-03-14] MEDS: FOLIC ACID 1 MG TABLET (FP) PO SCH (10:34)
[2019-03-14] MEDS: metoPROLOL SUCCINATE 25 MG TAB.SR.24H (FP) PO SCH (10:34)
[2019-03-14] MEDS: predniSONE 20 MG TABLET (UD) PO SCH (10:34)
[2019-03-14] MEDS: ALLOPURINOL 100 MG TABLET (FP) PO SCH (10:34)
[2019-03-14] MEDS: CLOPIDOGREL BISULFATE 75 MG TABLET (FP) PO SCH (10:34)
[2019-03-14] MEDS: FAMOTIDINE 20 MG TABLET PO SCH ×2 (10:35→21:52)
[2019-03-14] MEDS: BUDESONIDE/FORMETEROL FUMARATE 80/4.5 mcg INHALER IH SCH ×2 (10:38→21:52)
--- NOTE | 2019-03-14 11:24 | PN ---
Progress Note, Physician History of Present Illness: 69-year-old black female with history of COPD/bronchial asthma; CAD status post CABG and a few stents, asthma, systolic/diastolic CHF (low-normal LVEF; moderate MR; abnormal diastolic compliance; mild LVH), obesity, sleep apnea, sedentary lifestyle, depression, here today complaining of worsening shortness of breath. Patient states she was seen by Dr. Jones 3 days ago at that time was started on steroids has been using inhaler at home. Today she called Dr. Jones because she felt her shortness of breath was getting worse denies any worsening leg swelling no history of PE or DVT denies any current chest pain. Patient states that she has been taking her prednisone as prescribed has been coughing up some phlegm which is yellowish in color and different for her baseline does not wear home O2 denies any other exacerbating factors. - Current Medication List Current Medications: Active Medications Acetaminophen (Tylenol -) 650 mg PO Q6H PRN PRN Reason: FEVER Albuterol Sulfate (Ventolin 0.083% Nebulizer Soln -) 1 amp NEB Q4H PRN PRN Reason: SHORTNESS OF BREATH Albuterol Sulfate (Ventolin Hfa Inhaler -) 1 puff IH TID PRN PRN Reason: SHORT OF BREATH/WHEEZING Albuterol/Ipratropium (Duoneb -) 1 amp NEB Q6H PRN PRN Reason: WHEEZING Last Admin: 03/13/19 20:20 Dose: 1 amp Allopurinol (Zyloprim -) 100 mg PO DAILY [facility] Last Admin: 03/14/19 10:34 Dose: 100 mg Atorvastatin Calcium (Lipitor -) 10 mg PO HS [facility] Last Admin: 03/13/19 21:18 Dose: 10 mg Budesonide/Formoterol Fumarate (Symbicort 80/4.5mcg -) 2 puff IH BID [facility] Last Admin: 03/14/19 10:38 Dose: 2 puff Clopidogrel Bisulfate (Plavix -) 75 mg PO DAILY [facility] Last Admin: 03/14/19 10:34 Dose: 75 mg Duloxetine HCl (Cymbalta -) 20 mg PO DAILY [facility] Last Admin: 03/13/19 09:04 Dose: 20 mg Famotidine (Pepcid -) 20 mg PO BID [facility] Last Admin: 03/14/19 10:35 Dose: 20 mg Folic Acid (Folic Acid -) 1 mg PO DAILY [facility] Last Admin: 03/14/19 10:34 Dose: 1 mg Gabapentin (Neurontin -) 400 mg PO Q8H PRN PRN Reason: PAIN LEVEL 6-10 Azithromycin (Zithromax 500mg Ivpb (Pre-Docked)) 500 mg in 250 mls @ 250 mls/ hr IVPB DAILY [facility] Last Admin: 03/14/19 10:33 Dose: 250 mls/hr Insulin Aspart (Novolog Vial Sliding Scale -) 1 vial SQ BIDAC [facility] Last Admin: 03/14/19 06:17 Dose: 2 units Isosorbide Mononitrate (Imdur -) 30 mg PO HS [facility] Last Admin: 03/13/19 21:18 Dose: 30 mg Lisinopril (Prinivil) 10 mg PO DAILY [facility] Last Admin: 03/14/19 10:33 Dose: 10 mg Metformin HCl (Glucophage -) 500 mg PO BIDAC [facility] Last Admin: 03/14/19 06:17 Dose: 500 mg Metoprolol Succinate (Toprol Xl -) 25 mg PO DAILY [facility] Last Admin: 03/14/19 10:34 Dose: 25 mg Nitroglycerin (Nitrostat -) 0.4 mg SL Q5M PRN PRN Reason: CHEST PAIN Last Admin: 03/09/19 00:11 Dose: 0.4 mg Pantoprazole Sodium (Protonix -) 20 mg PO DAILY [facility] Last Admin: 03/14/19 10:34 Dose: 20 mg Prednisone (Deltasone -) 40 mg PO DAILY [facility] Last Admin: 03/14/19 10:34 Dose: 40 mg Torsemide (Demadex -) 20 mg PO DAILY [facility] Last Admin: 03/14/19 10:34 Dose: 20 mg - Objective Vital Signs: Vital Signs Temperature 97.9 F 03/14/19 09:00 Pulse Rate 77 03/14/19 09:00 Respiratory Rate 20 03/14/19 09:00 Blood Pressure 143/77 03/14/19 09:00 O2 Sat by Pulse Oximetry (%) 97 03/13/19 20:31 Eyes: Yes: WNL, Conjunctiva Clear, EOM Intact HENT: Yes: WNL, Atraumatic, Normocephalic Neck: Yes: WNL, Supple, Trachea Midline Cardiovascular: Yes: WNL, Regular Rate and Rhythm Respiratory: Yes: WNL, Regular, CTA Bilaterally Gastrointestinal: Yes: WNL, Normal Bowel Sounds Genitourinary: Yes: WNL Musculoskeletal: Yes: WNL Extremities: Yes: WNL Edema: No Integumentary: Yes: WNL Neurological: Yes: WNL, Alert, Oriented ...Motor Strength: WNL Psychiatric: Yes: WNL Labs: CBC, BMP 03/14/19 09:03 03/14/19 09:03 INR, PTT INR 0.92 (0.83-1.09) 03/08/19 16:50 Assessment/Plan - Problems (1) COPD exacerbation Assessment/Plan: Bronchodilators, O2, steroids per machine i trimmer. If pt has true bronchial asthma component, would consider titrating off metoprolol; however, she has been on the agent for years (CAD; low-normal LVEF) , and until relatively recently appeared to be tolerating it. Code(s): J44.1 - CHRONIC OBSTRUCTIVE PULMONARY DISEASE W (ACUTE) EXACERBATION (2) ACS (acute coronary syndrome) Assessment/Plan: TNI < 0.02; f/u EKG and TNI serially. EKG: no significant change (NSR; septal infarct). BNP mildly elevated. Restart lisinopril 10 mg daily. Recommend adding SGLT-2 inhibitor for DM and benefits in lowering cardiac risks. Code(s): I24.9 - ACUTE ISCHEMIC HEART DISEASE, UNSPECIFIED (3) Obese Code(s): E66.9 - OBESITY, UNSPECIFIED Qualifiers: Body mass index: BMI 60.0-69.9 (4) Sedentary lifestyle Code(s): Z91.89 - OTH PERSONAL RISK FACTORS, NOT ELSEWHERE CLASSIFIED (5) Diabetes Code(s): E11.9 - TYPE 2 DIABETES MELLITUS WITHOUT COMPLICATIONS (6) HTN (hypertension) Code(s): I10 - ESSENTIAL (PRIMARY) HYPERTENSION (7) Hyperlipidemia Assessment/Plan: On statin (agree with atorvastatin, a more potent agent than the pravastatin she had been on previously). F/u lipid profile, and keep LDL well below 70 mg/dL. TSH WNL 12/2018 Code(s): E78.5 - HYPERLIPIDEMIA, UNSPECIFIED (8) S/P CABG (coronary artery bypass graft) Code(s): Z95.1 - PRESENCE OF AORTOCORONARY BYPASS GRAFT (9) Depression Code(s): F32.9 - MAJOR DEPRESSIVE DISORDER, SINGLE EPISODE, UNSPECIFIED (10) Sleep apnea Code(s): G47.30 - SLEEP APNEA, UNSPECIFIED
[2019-03-14] MEDS ORDERED: PT OWN MED DRAWER 7, Y5N ONE (11:46)
[2019-03-14] MEDS: DULoxetine HCL 20 MG CAPSULE.DR PO SCH (11:46)
--- NOTE | 2019-03-14 15:17 | PN ---
Progress Note, Physician History of Present Illness: pulmonary alert,feeling better,sob improving,less congested - Current Medication List Current Medications: Active Medications Acetaminophen (Tylenol -) 650 mg PO Q6H PRN PRN Reason: FEVER Albuterol Sulfate (Ventolin 0.083% Nebulizer Soln -) 1 amp NEB Q4H PRN PRN Reason: SHORTNESS OF BREATH Albuterol Sulfate (Ventolin Hfa Inhaler -) 1 puff IH TID PRN PRN Reason: SHORT OF BREATH/WHEEZING Albuterol/Ipratropium (Duoneb -) 1 amp NEB Q6H PRN PRN Reason: WHEEZING Last Admin: 03/14/19 09:15 Dose: 1 amp Allopurinol (Zyloprim -) 100 mg PO DAILY [facility] Last Admin: 03/14/19 10:34 Dose: 100 mg Atorvastatin Calcium (Lipitor -) 10 mg PO HS [facility] Last Admin: 03/13/19 21:18 Dose: 10 mg Budesonide/Formoterol Fumarate (Symbicort 80/4.5mcg -) 2 puff IH BID [facility] Last Admin: 03/14/19 10:38 Dose: 2 puff Clopidogrel Bisulfate (Plavix -) 75 mg PO DAILY [facility] Last Admin: 03/14/19 10:34 Dose: 75 mg Duloxetine HCl (Cymbalta -) 20 mg PO DAILY [facility] Last Admin: 03/14/19 11:46 Dose: 20 mg Famotidine (Pepcid -) 20 mg PO BID [facility] Last Admin: 03/14/19 10:35 Dose: 20 mg Folic Acid (Folic Acid -) 1 mg PO DAILY [facility] Last Admin: 03/14/19 10:34 Dose: 1 mg Gabapentin (Neurontin -) 400 mg PO Q8H PRN PRN Reason: PAIN LEVEL 6-10 Azithromycin (Zithromax 500mg Ivpb (Pre-Docked)) 500 mg in 250 mls @ 250 mls/ hr IVPB DAILY [facility] Last Admin: 03/14/19 10:33 Dose: 250 mls/hr Insulin Aspart (Novolog Vial Sliding Scale -) 1 vial SQ BIDAC [facility] Last Admin: 03/14/19 06:17 Dose: 2 units Isosorbide Mononitrate (Imdur -) 30 mg PO HS [facility] Last Admin: 03/13/19 21:18 Dose: 30 mg Lisinopril (Prinivil) 10 mg PO DAILY [facility] Last Admin: 03/14/19 10:33 Dose: 10 mg Metformin HCl (Glucophage -) 500 mg PO BIDAC [facility] Last Admin: 03/14/19 06:17 Dose: 500 mg Metoprolol Succinate (Toprol Xl -) 25 mg PO DAILY [facility] Last Admin: 03/14/19 10:34 Dose: 25 mg Nitroglycerin (Nitrostat -) 0.4 mg SL Q5M PRN PRN Reason: CHEST PAIN Last Admin: 03/09/19 00:11 Dose: 0.4 mg Pantoprazole Sodium (Protonix -) 20 mg PO DAILY [facility] Last Admin: 03/14/19 10:34 Dose: 20 mg Prednisone (Deltasone -) 40 mg PO DAILY [facility] Last Admin: 03/14/19 10:34 Dose: 40 mg Torsemide (Demadex -) 20 mg PO DAILY [facility] Last Admin: 03/14/19 10:34 Dose: 20 mg - Objective Vital Signs: Vital Signs Temperature 97.6 F 03/14/19 13:59 Pulse Rate 89 03/14/19 13:59 Respiratory Rate 20 03/14/19 13:59 Blood Pressure 124/66 03/14/19 13:59 O2 Sat by Pulse Oximetry (%) 93 L 03/14/19 09:00 Constitutional: Yes: Well Nourished, Calm Eyes: Yes: WNL HENT: Yes: WNL Neck: Yes: WNL Cardiovascular: Yes: Regular Rate and Rhythm, S1, S2 Respiratory: Yes: Wheezes (scattered [place] wheezes) Gastrointestinal: Yes: Normal Bowel Sounds, Soft Extremities: Yes: WNL Edema: No Labs: CBC, BMP 03/14/19 09:03 03/14/19 09:03 INR, PTT INR 0.92 (0.83-1.09) 03/08/19 16:50 Assessment/Plan Problem List - Problems (1) COPD exacerbation Code(s): J44.1 - CHRONIC OBSTRUCTIVE PULMONARY DISEASE W (ACUTE) EXACERBATION (2) Obese Code(s): E66.9 - OBESITY, UNSPECIFIED (3) SOB (shortness of breath) Code(s): R06.02 - SHORTNESS OF BREATH (4) Arteriosclerotic heart disease (ASHD) Code(s): I25.10 - ATHSCL HEART DISEASE OF [place] CORONARY ARTERY W/O ANG PCTRS (5) Diabetes Code(s): E11.9 - TYPE 2 DIABETES MELLITUS WITHOUT COMPLICATIONS (6) HTN (hypertension) Code(s): I10 - ESSENTIAL (PRIMARY) HYPERTENSION (7) S/P CABG (coronary artery bypass graft) Code(s): Z95.1 - PRESENCE OF AORTOCORONARY BYPASS GRAFT Assessment/Plan (?) [facility] ANTIBIOTICS DC PLANNING OUTPATIENT SLEEP STUDIES DR DUKE
[2019-03-14] MEDS: ATORVASTATIN CA 10 MG TABLET (FP) PO SCH (21:51)
[2019-03-14] MEDS: ISOSORBIDE MONONITRATE 30 MG TAB.SR.24H (FP) PO SCH (21:52)
[2019-03-15] MEDS: INSULIN SLIDING SCALE (NOVOLOG) 1 VIAL SQ SCH ×2 (06:20→17:10)
[2019-03-15] MEDS: metFORMIN HCL 500 MG TABLET (FP) PO SCH ×2 (06:20→17:10)
--- NOTE | 2019-03-15 08:08 | CON.ENT ---
Consult Consult Specialty:: ENT Referred by:: Dr. Christiansen Reason for Consultation:: sore throat - History of Present Illness Chief Complaint: sore throat History of Present Illness: 71 yo F c/o sore throat for 2 months, improving now had hoarseness and voice change for ~2 weeks, improved, voice almost back to normal right ear discomfort known hearing loss, uses hearing aids no nasal symptoms - History Source History Provided By: Patient, Medical Record Limitations to Obtaining History: No Limitations 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 History [employer]: No: Alzheimer's Cardio/Vascular: Yes: CAD, HTN, Hyperlipdemia Pulmonary: Yes: COPD Gastrointestinal: No: Ascites Hepatobiliary: No: Cirrhosis Renal/: Yes: Renal Inusuff ...: No Infectious Disease: Yes: Other (oral abscess) Musculoskeletal: Yes: Osteoarthritis Rheumatology: Yes: Gout Endocrine: Yes: Hyperparathyroidism - Past Surgical History Past Surgical History: Yes: CABG - Alcohol/Substance Use Hx Alcohol Use: No History of Substance Use: reports: None - Smoking History Smoking history: Never smoked Have you smoked in the past 12 months: No Aproximately how many cigarettes per day: 0 If you are a former smoker, when did you quit?: about 30 years ago - Social History ADL: Independent History of Recent Travel: No Home Medications - Allergies Allergies/Adverse Reactions: Allergies Allergy/AdvReac Type Severity Reaction Status Date / Time aspirin Allergy Verified 03/08/19 15:21 Penicillins Allergy Hives Verified 03/08/19 15:21 codeine [Codeine] AdvReac HALLUCINATIONS, Verified 03/08/19 15:21 DROWSY morphine AdvReac HALLUCINATI Verified 03/08/19 15:21 ONS - Home Medications Home Medications: Ambulatory Orders Aspirin Coated [Ecotrin -] 81 mg PO DAILY 08/09/13 Acetaminophen [Tylenol .Regular Strength -] 650 mg PO Q6H PRN #0 tablet Albuterol Sulfate [Proair Hfa -] 1 inh PO ASDIR PRN 90 Days hfa.aer.ad Budesonide/Formeterol Fumarate [SYMBICORT 80/4.5mcg -] 2 inh IH BID 90 Days inhaler 05/17/15 Clopidogrel Bisulfate [Plavix -] 75 mg PO DAILY #90 tablet 05/17/15 Folic Acid - 1 mg PO DAILY #90 tablet 05/17/15 Metoprolol Succinate [Toprol XL -] 25 mg PO DAILY #90 tab.sr.24h 05/17/15 Torsemide 20 mg PO DAILY #90 tablet 05/17/15 metFORMIN HCL [Metformin HCl] 500 mg PO BID #180 tablet 05/17/15 Cholecalciferol (Vitamin D3) [Vitamin D3] 1,000 unit PO ASDIR 01/18/17 Duloxetine HCl [Cymbalta] 20 mg PO DAILY 01/18/17 Gabapentin 400 mg PO TID PRN 01/18/17 Isosorbide Mononitrate [Imdur -] 30 mg PO HS 01/18/17 Metaxalone [Skelaxin] 800 mg PO PRN PRN 01/18/17 Nitroglycerin [Nitrostat] 0.4 mg SL PRN 01/18/17 Pravastatin Sodium [Pravachol] 40 mg PO HS 01/18/17 Ranitidine HCl [Zantac] 150 mg PO BID 01/18/17 Walker [Ultra-Light Rollator] 1 each MC DAILY #1 each 11/06/18 Albuterol 2.5/Ipratropium 0.5 [Duoneb -] 1 neb IH QID 7 Days #30 vial.neb. 03/03 Allopurinol [Zyloprim -] 100 mg PO DAILY 03/03/19 predniSONE [Deltasone -] 40 mg PO DAILY 3 Days #6 tablet 03/03/19 Albuterol 0.083% Nebulizer Sil [Ventolin 0.083% Nebulizer Soln -] 1 neb NEB Q4H PRN #30 vial 03/04/19 Physical Exam-ENT Vital Signs: Vital Signs Temperature 98.1 F 03/15/19 06:00 Pulse Rate 80 03/15/19 06:00 Respiratory Rate 20 03/15/19 06:00 Blood Pressure 157/80 03/15/19 06:00 O2 Sat by Pulse Oximetry (%) 93 L 03/14/19 21:00 Constitutional: Yes: Well Nourished, No Distress, Calm Head: Yes: WNL Face: Yes: WNL Nose: Yes: WNL, Septum Deviated (septal deviation to right anteriorly) Nasal Passage: Yes: Other Oral/Pharynx: Yes: Other (oral cavity tongue in position 3, oral cavity mucosa buccal mucosa with scattered whitish change, also soft palate with scattered white exudate clinically suggesting candidiasis) Outer Ear: Yes: WNL Ear Canal: Yes: WNL Tympanic Membrane: Yes: WNL Neck: Yes: WNL (no mass or node palpable, salivary glands WNL) Problem List - Problems (1) Throat pain Assessment/Plan: pt reports a 2 month history of tghroat pain improved now affected swallowing had accompanying hoarseness which has also improved examination cconsistent with oaropharyngeal candidiasis risk factors oral and inhaled steroids, antibiotics Recommend: diet as tolerated Nystatin (ordered) should complete 10 day course if swallowing symptoms still persist then swallow evaluation recommended outpatient follow-up in office, laryngoscopy if voice change not resolved Problems reviewed: Yes Code(s): R07.0 - PAIN IN THROAT (2) Hearing loss Assessment/Plan: known hearing loss, pt is a hearing aid user Recommend: continue hearing aid use annual audiogram outpatient follow-up Code(s): H91.90 - UNSPECIFIED HEARING LOSS, UNSPECIFIED EAR Qualifiers: Hearing loss type: presbycusis Laterality: bilateral Qualified Code(s): H91.13 - Presbycusis, bilateral
--- NOTE | 2019-03-15 08:51 | PN ---
Progress Note, Physician Chief Complaint: feels a little better consults apprecaited and d/w pt swallow eval per ENT - Current Medication List Current Medications: Active Medications Acetaminophen (Tylenol -) 650 mg PO Q6H PRN PRN Reason: FEVER Albuterol Sulfate (Ventolin 0.083% Nebulizer Soln -) 1 amp NEB Q4H PRN PRN Reason: SHORTNESS OF BREATH Albuterol Sulfate (Ventolin Hfa Inhaler -) 1 puff IH TID PRN PRN Reason: SHORT OF BREATH/WHEEZING Albuterol/Ipratropium (Duoneb -) 1 amp NEB Q6H PRN PRN Reason: WHEEZING Last Admin: 03/14/19 19:25 Dose: 1 amp Allopurinol (Zyloprim -) 100 mg PO DAILY [facility] Last Admin: 03/14/19 10:34 Dose: 100 mg Atorvastatin Calcium (Lipitor -) 10 mg PO HS [facility] Last Admin: 03/14/19 21:51 Dose: 10 mg Budesonide/Formoterol Fumarate (Symbicort 80/4.5mcg -) 2 puff IH BID [facility] Last Admin: 03/14/19 21:52 Dose: 2 puff Clopidogrel Bisulfate (Plavix -) 75 mg PO DAILY [facility] Last Admin: 03/14/19 10:34 Dose: 75 mg Duloxetine HCl (Cymbalta -) 20 mg PO DAILY [facility] Last Admin: 03/14/19 11:46 Dose: 20 mg Famotidine (Pepcid -) 20 mg PO BID [facility] Last Admin: 03/14/19 21:52 Dose: 20 mg Folic Acid (Folic Acid -) 1 mg PO DAILY [facility] Last Admin: 03/14/19 10:34 Dose: 1 mg Gabapentin (Neurontin -) 400 mg PO Q8H PRN PRN Reason: PAIN LEVEL 6-10 Azithromycin (Zithromax 500mg Ivpb (Pre-Docked)) 500 mg in 250 mls @ 250 mls/ hr IVPB DAILY [facility] Last Admin: 03/14/19 10:33 Dose: 250 mls/hr Insulin Aspart (Novolog Vial Sliding Scale -) 1 vial SQ BIDAC [facility] Last Admin: 03/15/19 06:20 Dose: 2 units Isosorbide Mononitrate (Imdur -) 30 mg PO HS [facility] Last Admin: 03/14/19 21:52 Dose: 30 mg Lisinopril (Prinivil) 10 mg PO DAILY [facility] Last Admin: 03/14/19 10:33 Dose: 10 mg Metformin HCl (Glucophage -) 500 mg PO BIDAC [facility] Last Admin: 03/15/19 06:20 Dose: 500 mg Metoprolol Succinate (Toprol Xl -) 25 mg PO DAILY [facility] Last Admin: 03/14/19 10:34 Dose: 25 mg Nitroglycerin (Nitrostat -) 0.4 mg SL Q5M PRN PRN Reason: CHEST PAIN Last Admin: 03/09/19 00:11 Dose: 0.4 mg Nystatin (Nystatin Oral Suspension -) 500,000 units PO Q6HPO [facility] Stop: 03/25/19 11:59 Pantoprazole Sodium (Protonix -) 20 mg PO DAILY [facility] Last Admin: 03/14/19 10:34 Dose: 20 mg Prednisone (Deltasone -) 40 mg PO DAILY [facility] Last Admin: 03/14/19 10:34 Dose: 40 mg Torsemide (Demadex -) 20 mg PO DAILY [facility] Last Admin: 03/14/19 10:34 Dose: 20 mg - Objective Vital Signs: Vital Signs Temperature 98.1 F 03/15/19 06:00 Pulse Rate 80 03/15/19 06:00 Respiratory Rate 20 03/15/19 06:00 Blood Pressure 157/80 03/15/19 06:00 O2 Sat by Pulse Oximetry (%) 93 L 03/14/19 21:00 Constitutional: Yes: No Distress Eyes: Yes: Conjunctiva Clear HENT: Yes: Atraumatic Neck: Yes: Supple Cardiovascular: Yes: Regular Rate and Rhythm Respiratory: Yes: Diminished Gastrointestinal: Yes: Soft. No: Tenderness Genitourinary: No: Hematuria Musculoskeletal: No: Joint Stiffness, Joint Swelling Extremities: No: Cold, Cool Edema: No Integumentary: No: Rash, Venous Stasis Changes Neurological: Yes: Alert ...Motor Strength: WNL Psychiatric: Yes: Alert. No: Agitated Labs: CBC, BMP 03/14/19 09:03 03/14/19 09:03 INR, PTT INR 0.92 (0.83-1.09) 03/08/19 16:50 - ....Imaging Other: Report Reviewed Assessment/Plan 69 y/o F with PMHx of COPD, CHF, DM, HTN, HLD, CAD s/p CABGx2 and stents on ASA/ plavix, NED admitted with wheezing and SOB x 1 week associated yellow sputum productive cough, sore throat ALL PNC; COPD exac; better pulm f/u; IV steroids h/o ASHD: cardiology f/u IV zithromax f/u labs MBS and sleep study - outpt falls, DVT pfx; d/w pt and staff
--- NOTE | 2019-03-15 10:01 | PN ---
Progress Note (short form) - Note Progress Note: Resting in bed in NAD. Breathing feels a little better today. Sore throat feels a little better. Seen by ENT: candidiasis. Less SOB. Less cough. Intake & Output 03/12/19 03/13/19 03/14/19 03/15/19 23:59 23:59 23:59 23:59 Intake Total 1340 1080 1250 600 Output Total 350 Balance 1340 1080 900 600 Weight 189 lb 6 oz 191 lb 4 oz 191 lb 1 oz Last Vital Signs Temp Pulse Resp BP Pulse Ox 98.1 F 80 20 157/80 93 L 03/15/19 06:00 03/15/19 06:00 03/15/19 06:00 03/15/19 06:00 03/14/19 21:00 Active Medications Acetaminophen (Tylenol -) 650 mg PO Q6H PRN PRN Reason: FEVER Albuterol Sulfate (Ventolin 0.083% Nebulizer Soln -) 1 amp NEB Q4H PRN PRN Reason: SHORTNESS OF BREATH Albuterol Sulfate (Ventolin Hfa Inhaler -) 1 puff IH TID PRN PRN Reason: SHORT OF BREATH/WHEEZING Albuterol/Ipratropium (Duoneb -) 1 amp NEB Q6H PRN PRN Reason: WHEEZING Last Admin: 03/14/19 19:25 Dose: 1 amp Allopurinol (Zyloprim -) 100 mg PO DAILY [facility] Last Admin: 03/14/19 10:34 Dose: 100 mg Atorvastatin Calcium (Lipitor -) 10 mg PO [facility] Last Admin: 03/14/19 21:51 Dose: 10 mg Budesonide/Formoterol Fumarate (Symbicort 80/4.5mcg -) 2 puff IH BID [facility] Last Admin: 03/14/19 21:52 Dose: 2 puff Clopidogrel Bisulfate (Plavix -) 75 mg PO DAILY [facility] Last Admin: 03/14/19 10:34 Dose: 75 mg Duloxetine HCl (Cymbalta -) 20 mg PO DAILY [facility] Last Admin: 03/14/19 11:46 Dose: 20 mg Famotidine (Pepcid -) 20 mg PO BID [facility] Last Admin: 03/14/19 21:52 Dose: 20 mg Folic Acid (Folic Acid -) 1 mg PO DAILY [facility] Last Admin: 03/14/19 10:34 Dose: 1 mg Gabapentin (Neurontin -) 400 mg PO Q8H PRN PRN Reason: PAIN LEVEL 6-10 Azithromycin (Zithromax 500mg Ivpb (Pre-Docked)) 500 mg in 250 mls @ 250 mls/ hr IVPB DAILY [facility] Last Admin: 03/14/19 10:33 Dose: 250 mls/hr Insulin Aspart (Novolog Vial Sliding Scale -) 1 vial SQ BIDAC [facility] Last Admin: 03/15/19 06:20 Dose: 2 units Isosorbide Mononitrate (Imdur -) 30 mg PO HS [facility] Last Admin: 03/14/19 21:52 Dose: 30 mg Lisinopril (Prinivil) 10 mg PO DAILY [facility] Last Admin: 03/14/19 10:33 Dose: 10 mg Metformin HCl (Glucophage -) 500 mg PO BIDAC [facility] Last Admin: 03/15/19 06:20 Dose: 500 mg Metoprolol Succinate (Toprol Xl -) 25 mg PO DAILY [facility] Last Admin: 03/14/19 10:34 Dose: 25 mg Nitroglycerin (Nitrostat -) 0.4 mg SL Q5M PRN PRN Reason: CHEST PAIN Last Admin: 03/09/19 00:11 Dose: 0.4 mg Nystatin (Nystatin Oral Suspension -) 500,000 units PO Q6HPO [facility] Stop: 03/25/19 11:59 Pantoprazole Sodium (Protonix -) 20 mg PO DAILY [facility] Last Admin: 03/14/19 10:34 Dose: 20 mg Prednisone (Deltasone -) 40 mg PO DAILY [facility] Last Admin: 03/14/19 10:34 Dose: 40 mg Torsemide (Demadex -) 20 mg PO DAILY [facility] Last Admin: 03/14/19 10:34 Dose: 20 mg Constitutional: Yes: NAD Eyes: Yes: EOM Intact HENT: Yes: Normocephalic Neck: Yes: Trachea Midline, upper airway sounds, No stridor Cardiovascular: Yes: Regular Rate and Rhythm Respiratory: Yes: Less scattered Wheezes and Rhonchi Gastrointestinal: Yes: Normal Bowel Sounds, Soft, Abdomen, Obese Renal/: Yes: WNL Breast(s): Yes: WNL Musculoskeletal: Yes: WNL Edema: LLE: 1+, RLE: 1+ Integumentary: Yes: WNL Neurological: Yes: WNL, Alert Labs: Laboratory Results - last 24 hr 03/14/19 03/14/19 03/14/19 09:03 09:03 11:35 WBC 19.5 H RBC 6.68 H Hgb 15.4 H Hct 48.2 H MCV 72.2 L MCH 23.1 L MCHC 31.9 L RDW 15.7 H Plt Count 386 MPV 8.1 Sodium 140 Potassium 3.7 Chloride 98 Carbon Dioxide 32 Anion Gap 9 BUN 42.8 H Creatinine 1.1 Est GFR (CKD-EPI)AfAm 58.50 Est GFR (CKD-EPI)NonAf 50.47 POC Glucometer 262 Random Glucose 113 H Calcium 9.5 03/14/19 03/15/19 16:07 06:19 WBC RBC Hgb Hct MCV MCH MCHC RDW Plt Count MPV Sodium Potassium Chloride Carbon Dioxide Anion Gap BUN Creatinine Est GFR (CKD-EPI)AfAm Est GFR (CKD-EPI)NonAf POC Glucometer 279 178 Random Glucose Calcium Problem List - Problems (1) COPD exacerbation Code(s): J44.1 - CHRONIC OBSTRUCTIVE PULMONARY DISEASE W (ACUTE) EXACERBATION (2) Obese Code(s): E66.9 - OBESITY, UNSPECIFIED (3) SOB (shortness of breath) Code(s): R06.02 - SHORTNESS OF BREATH (4) Arteriosclerotic heart disease (ASHD) Code(s): I25.10 - ATHSCL HEART DISEASE OF [place] CORONARY ARTERY W/O ANG PCTRS (5) Diabetes Code(s): E11.9 - TYPE 2 DIABETES MELLITUS WITHOUT COMPLICATIONS (6) HTN (hypertension) Code(s): I10 - ESSENTIAL (PRIMARY) HYPERTENSION (7) S/P CABG (coronary artery bypass graft) Code(s): Z95.1 - PRESENCE OF AORTOCORONARY BYPASS GRAFT Assessment/Plan (?) OSAS Nystatin Prednisone BD TX Will need sleep apnea workup after DC DC planning Dr Norman
[2019-03-15] MEDS: LISINOPRIL 5 MG TABLET (FP) PO SCH (11:10)
[2019-03-15] MEDS: TORSEMIDE 20 MG TABLET (FP) PO SCH (11:10)
[2019-03-15] MEDS: NYSTATIN 500,000 UNITS/5 ML SUSPENSION PO SCH ×2 (11:10→17:15)
[2019-03-15] MEDS: ALLOPURINOL 100 MG TABLET (FP) PO SCH (11:10)
[2019-03-15] MEDS: predniSONE 20 MG TABLET (UD) PO SCH (11:10)
[2019-03-15] MEDS: metoPROLOL SUCCINATE 25 MG TAB.SR.24H (FP) PO SCH (11:11)
[2019-03-15] MEDS: DULoxetine HCL 20 MG CAPSULE.DR PO SCH (11:11)
[2019-03-15] MEDS: CLOPIDOGREL BISULFATE 75 MG TABLET (FP) PO SCH (11:11)
[2019-03-15] MEDS: FAMOTIDINE 20 MG TABLET PO SCH ×2 (11:11→21:57)
[2019-03-15] MEDS: FOLIC ACID 1 MG TABLET (FP) PO SCH (11:11)
[2019-03-15] MEDS: PANTOPRAZOLE 20 MG TABLET (FP) PO SCH (11:11)
[2019-03-15] MEDS: BUDESONIDE/FORMETEROL FUMARATE 80/4.5 mcg INHALER IH SCH ×2 (11:12→21:58)
[2019-03-15] MEDS: AZITHROMYCIN IVPB 500 MG/250 ML BAG IVPB SCH (11:12)
--- NOTE | 2019-03-15 11:55 | CONSULT ---
Admitting History and Physical - Primary Care Physician PCP: Flores Christiansen - Admission History of Present Illness: 69 y/o F with PMHx of COPD, CHF, DM, HTN, HLD, CAD s/p CABGx2 and stents on ASA/ plavix, NED presenting with wheezing and SOB. Started 1 week ago, associated yellow sputum productive cough, midsternal/L chest pain. ENT examination consistent with oaropharyngeal candidiasis- Nystatin ordered today. Pt c/o food sticking in throat x 2 months with Odynophagia. Ordered liquids, noodle soup for lunch sec to dysphagia "It doesnt go down" Pt seen by me 08/11/17 for MBS- Mild + stasis of solids in pharynx, with complete clearance with liquid washdown. Swallowing tx rec but pt deferred . Advised double swallows followed by liquid washdown.I gave pt exercises to martíneze but she did not follow through. 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 History TYPING SECTION CHIEF: No: Alzheimer's Cardiovascular: Yes: CAD, HTN, Hyperlipdemia Pulmonary: Yes: COPD Gastrointestinal: No: Ascites Hepatobiliary: No: Cirrhosis Renal/: Yes: Renal Inusuff ...: No Heme/Onc: No: Anemia Infectious Disease: Yes: Other (oral abscess) Musculoskeletal: Yes: Osteoarthritis Rheumatology: Yes: Gout Endocrine: Yes: Hyperparathyroidism - Past Surgical History Past Surgical History: Yes: CABG - Advance Directives Advance Directives: Yes: Health Care Proxy - Smoking History Smoking history: Never smoked Have you smoked in the past 12 months: No Aproximately how many cigarettes per day: 0 If you are a former smoker, when did you quit?: about 30 years ago - Alcohol/Substance Use Hx Alcohol Use: No History of Substance Use: reports: None - Social History ADL: Independent History of Recent Travel: No History - Admission Reason For Visit: ACUTE EXACERBATION OF COPD - Diagnostics X-ray: Report Reviewed Modified Barium Swallow: Report Reviewed (08/11/17 for MBS- Mild + stasis of solids in pharynx, with complete clearance with liquid washdown. Swallowing tx rec but pt deferred) - General Mental Status: Alert and Oriented, Awake and Alert Attention: Intact Ability to Follow Directions: Excellent Head/Neck Control: WFL - Hearing Hearing: Impaired Hearing Aide: Yes With Patient: Yes Speech Evaluation - Communication Primary Language: CUBAN Communication: Yes: Within Normal Limits Oral Expression Ability: Yes: No Impairment, Mild Impairment - Speech Production Able to Make Needs Known: Yes: WNL Intelligibility: Yes: WNL - Speech Characteristics Voice Loudness: Normal Voice Pitch: Yes: Normal Voice Phonatory-based Quality: Yes: Normal Speech Pattern: Normal Speech Clarity: < 100% Nasal Resonance: Normal Articulation: Yes: Precise - Language/Auditory Comprehension Follows: Yes: 2 Stage Simple Commands Observation: Comprehends Conversational Speech: Yes - Language/Verbal Expression Able to Respond to Simple Queries: Yes: WNL Able to Communicate Wants and Needs: Yes: WNL Functional Communication Status: Yes: WNL - Swallow Evaluation/Bedside Assessment Current Nutritional Intake: Regular, Thin Liquids, Other (Pt choosing mainly liquids) Oral Secretions: Yes: WFL Dentition: Yes: Missing Teeth, Dental Appliance Upper Facial Symmetry at Rest: Symmetrical Facial Symmetry on Retraction: Symmetrical Sensation: Normal Against Resistance Opening: Normal Against Resistance Closing: Normal Pucker Lips: Normal Smile: Normal Lingual Movement: Normal, Symmetric Lingual Speed of Movement: Normal Lingual Movement Strgth Against Opposition: Normal Lingual Movement Characteristics: Normal Velopharyngeal Movement: Normal Laryngeal Movement: Reduced Excursion Rate of Intake: WFL Bolus Size: WFL Labial Seal: WFL Chewing: WFL Oral Prep Time: WFL A-P Transit: WFL Pocketing: None Timing of Swallow: WFL Odynophagia: Pharyngeal Coughing/Throat Clear: No Change in Voice: No Recommendations - Speech Evaluation, Impression/Plan Impression: 08/11/17 for MBS- Mild + stasis of solids in pharynx, with complete clearance with liquid washdown. Swallowing tx rec but pt deferred . Advised double swallows followed by liquid washdown.I gave pt exercises to pracrice but she did not follow through. Now with increased Dysphagia/Odynophagia with Keri identified by ENT. Nystatin ordered today. Suspect mild Pharyngeal Dysphagia exacerbated by Keri - Dysphagia Impressions/Plan Swallowing Skills: Impaired Dysphagia Impressions: Mild Impairment *Silent aspiration: cannot be R/O at bedside Dysphagia Treatment Plan: Chin Tuck/Down, Elevate HOB during feed, OOB for meals , Other (Double swallow per bite, altermate with sip of liquid) Recommendations: Modified Barium Swallow (as out pt, following completion of Nystatin) - Recommendations Diet Consistency: Mechanical Soft Liquids: Thin Liquids Supplement: Ensure
[2019-03-15] MEDS ORDERED: INSULIN (NOVOLOG) ASPART 100 UNITS/ML 10ML VIAL ONE (16:50)
[2019-03-15] MEDS: ALBUTEROL SO4 2.5/IPRATROPIUM 0.5 INH SOL 3 ML VIAL.NEB. NEB PRN (21:28)
[2019-03-15] MEDS: ATORVASTATIN CA 10 MG TABLET (FP) PO SCH (21:57)
[2019-03-15] MEDS: ISOSORBIDE MONONITRATE 30 MG TAB.SR.24H (FP) PO SCH (21:57)
[2019-03-16] MEDS: NYSTATIN 500,000 UNITS/5 ML SUSPENSION PO SCH ×4 (00:22→17:12)
--- NOTE | 2019-03-16 06:21 | DS ---
Physical Examination Vital Signs: Vital Signs Temperature 98.7 F 03/15/19 22:06 Pulse Rate 90 03/15/19 22:06 Respiratory Rate 20 03/15/19 22:06 Blood Pressure 112/61 03/15/19 22:06 O2 Sat by Pulse Oximetry (%) 96 03/15/19 21:00 Findings/Remarks: feel better less cough no SOB afebrile WBC 20k noted - on steroids - will taper down and f/u labs monitor for fever Constitutional: Yes: No Distress, Calm Eyes: Yes: Conjunctiva Clear HENT: Yes: Atraumatic Neck: Yes: Supple Cardiovascular: Yes: Regular Rate and Rhythm Respiratory: Yes: CTA Bilaterally Gastrointestinal: Yes: Soft. No: Tenderness Renal/: No: Hematuria Musculoskeletal: No: Joint Stiffness, Joint Swelling Extremities: No: Cold, Cool, Cyanosis Edema: No Integumentary: No: Rash, Venous Stasis Changes Neurological: Yes: Alert ...Motor Strength: WNL Psychiatric: Yes: Alert. No: Agitated, Suicidal Ideation Labs: CBC, BMP 03/14/19 09:03 03/14/19 09:03 Discharge Summary Problems reviewed: Yes Reason For Visit: ACUTE EXACERBATION OF COPD Current Active Problems COPD exacerbation (Acute) Depression (Acute) Hearing loss (Acute) Sleep apnea (Acute) Throat pain (Acute) Procedures: Principal: 69 YOF ASHD HTN HLP COPD OA DJD Obesity admitted with URI cough SOB and COPD exac Other Procedures: seen by cardio and pulm; IV steroids, IV ATB; sore throat difficulty swallowing seen by ENT and swallow eval Hospital Course: improved with above; High WBC sec to steroids; to be tapered and f/u closely outpt; f/u as advised Condition: Improved - Instructions Diet, Activity, Other Instructions: f/u all specialists as advised; labs in 2-3 days outpt; home PT rehab falls PFX; RTER if worse or recurrent Referrals: Flores Christiansen [Primary Care Provider] - Korin Singletary MS, CCC [Speech Therapist] - Phong Palomino MD [Staff Physician] - Jose Cadet MD [Staff Physician] - Todd Ayala MD [Staff Physician] - Disposition: VNS/HOME HEALTH CARE - Home Medications Comprehensive Discharge Medication List: Ambulatory Orders Aspirin Coated [Ecotrin -] 81 mg PO DAILY 08/09/13 Acetaminophen [Tylenol .Regular Strength -] 650 mg PO Q6H PRN #0 tablet Albuterol Sulfate [Proair Hfa -] 1 inh PO ASDIR PRN 90 Days hfa.aer.ad Budesonide/Formeterol Fumarate [SYMBICORT 80/4.5mcg -] 2 inh IH BID 90 Days inhaler 05/17/15 Clopidogrel Bisulfate [Plavix -] 75 mg PO DAILY #90 tablet 05/17/15 Folic Acid - 1 mg PO DAILY #90 tablet 05/17/15 Metoprolol Succinate [Toprol XL -] 25 mg PO DAILY #90 tab.sr.24h 05/17/15 Torsemide 20 mg PO DAILY #90 tablet 05/17/15 metFORMIN HCL [Metformin HCl] 500 mg PO BID #180 tablet 05/17/15 Cholecalciferol (Vitamin D3) [Vitamin D3] 1,000 unit PO ASDIR 01/18/17 Duloxetine HCl [Cymbalta] 20 mg PO DAILY 01/18/17 Gabapentin 400 mg PO TID PRN 01/18/17 Isosorbide Mononitrate [Imdur -] 30 mg PO HS 01/18/17 Metaxalone [Skelaxin] 800 mg PO PRN PRN 01/18/17 Nitroglycerin [Nitrostat] 0.4 mg SL PRN 01/18/17 Pravastatin Sodium [Pravachol] 40 mg PO HS 01/18/17 Ranitidine HCl [Zantac] 150 mg PO BID 01/18/17 Walker [Ultra-Light Rollator] 1 each MC DAILY #1 each 11/06/18 Albuterol 2.5/Ipratropium 0.5 [Duoneb -] 1 neb IH QID 7 Days #30 vial.neb. 03/03 Allopurinol [Zyloprim -] 100 mg PO DAILY 03/03/19 predniSONE [Deltasone -] 40 mg PO DAILY 3 Days #6 tablet 03/03/19 Albuterol 0.083% Nebulizer Sil [Ventolin 0.083% Nebulizer Soln -] 1 neb NEB Q4H PRN #30 vial 03/04/19
[2019-03-16] MEDS: INSULIN SLIDING SCALE (NOVOLOG) 1 VIAL SQ SCH ×2 (06:23→17:03)
[2019-03-16] MEDS: metFORMIN HCL 500 MG TABLET (FP) PO SCH ×2 (06:23→17:03)
[2019-03-16] MEDS ORDERED: INSULIN (NOVOLOG) ASPART 100 UNITS/ML 10ML VIAL ONE (06:37)
[2019-03-16 09:00] LABS: BASO % 0.2 % (0-2.0); EOS % 0.4 % (0-4.5); HEMATOCRIT 48.6 % (32.4-45.2); HEMOGLOBIN 15.3 GM/dL (10.7-15.3); LYMPH % 20.3 % (8-40); MCH 22.9 pg (25.7-33.7); MCHC 31.6 g/dl (32.0-36.0); MEAN CELL VOLUME 72.7 fl (80-96); MEAN PLT VOLUME 8.1 fl (7.5-11.1); MONO % 8.8 % (3.8-10.2); NEUT % 70.3 % (42.8-82.8); PLATELET COUNT 373 K/MM3 (134-434); RBC 6.68 M/mm3 (3.60-5.2); RDW 15.7 % (11.6-15.6); WHITE BLOOD COUNT 20.1 K/mm3 (4.0-10.0)
[2019-03-16] MEDS: DULoxetine HCL 20 MG CAPSULE.DR PO SCH (10:20)
[2019-03-16] MEDS: FOLIC ACID 1 MG TABLET (FP) PO SCH (10:20)
[2019-03-16] MEDS: CLOPIDOGREL BISULFATE 75 MG TABLET (FP) PO SCH (10:20)
[2019-03-16] MEDS: TORSEMIDE 20 MG TABLET (FP) PO SCH (10:20)
[2019-03-16] MEDS: LISINOPRIL 5 MG TABLET (FP) PO SCH (10:20)
[2019-03-16] MEDS: metoPROLOL SUCCINATE 25 MG TAB.SR.24H (FP) PO SCH (10:20)
[2019-03-16] MEDS: PANTOPRAZOLE 20 MG TABLET (FP) PO SCH (10:20)
[2019-03-16] MEDS: AZITHROMYCIN IVPB 500 MG/250 ML BAG IVPB SCH (10:20)
[2019-03-16] MEDS: ALLOPURINOL 100 MG TABLET (FP) PO SCH (10:20)
--- NOTE | 2019-03-16 10:20 | PN ---
Progress Note, SAFETY INSPECTOR - Note Progress Note: Odynophagia much improved. Pt does not recall swallowing recommendation reviewed from yesterday. Written directions provided. MBS as out pt
[2019-03-16] MEDS: BUDESONIDE/FORMETEROL FUMARATE 80/4.5 mcg INHALER IH SCH ×2 (10:21→22:00)
[2019-03-16] MEDS: predniSONE 20 MG TABLET (UD) PO SCH (10:21)
[2019-03-16] MEDS: FAMOTIDINE 20 MG TABLET PO SCH ×2 (10:21→22:01)
--- NOTE | 2019-03-16 10:22 | PN ---
Progress Note, INSTRUMENTATION AND CONTROLS TECHNICIAN - Note Progress Note: Patient education Chin Tuck/Down Elevate HOB during feed OOB for meals Double swallow per bite altermate with sip of liquid Modified Barium Swallow -as out pt, following completion of Nystatin - Recommendations Diet Consistency: Mechanical Soft Liquids: Thin Liquids Supplement: Ensure
[2019-03-16 14:17] LABS: ANISOCYTOSIS 0; MACROCYTOSIS 0; PLATELET ESTIMATE NORMAL
--- NOTE | 2019-03-16 14:19 | PN ---
Progress Note, Physician History of Present Illness: pulmonary alert,comfortable,dyspnea improving - Current Medication List Current Medications: Active Medications Acetaminophen (Tylenol -) 650 mg PO Q6H PRN PRN Reason: FEVER Albuterol Sulfate (Ventolin 0.083% Nebulizer Soln -) 1 amp NEB Q4H PRN PRN Reason: SHORTNESS OF BREATH Albuterol Sulfate (Ventolin Hfa Inhaler -) 1 puff IH TID PRN PRN Reason: SHORT OF BREATH/WHEEZING Albuterol/Ipratropium (Duoneb -) 1 amp NEB Q6H PRN PRN Reason: WHEEZING Last Admin: 03/15/19 21:28 Dose: 1 amp Allopurinol (Zyloprim -) 100 mg PO DAILY [facility] Last Admin: 03/16/19 10:20 Dose: 100 mg Atorvastatin Calcium (Lipitor -) 10 mg PO HS [facility] Last Admin: 03/15/19 21:57 Dose: 10 mg Budesonide/Formoterol Fumarate (Symbicort 80/4.5mcg -) 2 puff IH BID [facility] Last Admin: 03/16/19 10:21 Dose: 2 puff Clopidogrel Bisulfate (Plavix -) 75 mg PO DAILY [facility] Last Admin: 03/16/19 10:20 Dose: 75 mg Duloxetine HCl (Cymbalta -) 20 mg PO DAILY [facility] Last Admin: 03/16/19 10:20 Dose: 20 mg Famotidine (Pepcid -) 20 mg PO BID [facility] Last Admin: 03/16/19 10:21 Dose: 20 mg Folic Acid (Folic Acid -) 1 mg PO DAILY [facility] Last Admin: 03/16/19 10:20 Dose: 1 mg Gabapentin (Neurontin -) 400 mg PO Q8H PRN PRN Reason: PAIN LEVEL 6-10 Insulin Aspart (Novolog Vial Sliding Scale -) 1 vial SQ BIDAC [facility] Last Admin: 03/16/19 06:23 Dose: Not Given Isosorbide Mononitrate (Imdur -) 30 mg PO HS [facility] Last Admin: 03/15/19 21:57 Dose: 30 mg Lisinopril (Prinivil) 10 mg PO DAILY [facility] Last Admin: 03/16/19 10:20 Dose: 10 mg Metformin HCl (Glucophage -) 500 mg PO BIDAC [facility] Last Admin: 03/16/19 06:23 Dose: 500 mg Metoprolol Succinate (Toprol Xl -) 25 mg PO DAILY [facility] Last Admin: 03/16/19 10:20 Dose: 25 mg Nitroglycerin (Nitrostat -) 0.4 mg SL Q5M PRN PRN Reason: CHEST PAIN Last Admin: 03/09/19 00:11 Dose: 0.4 mg Nystatin (Nystatin Oral Suspension -) 500,000 units PO Q6HPO [facility] Stop: 03/25/19 11:59 Last Admin: 03/16/19 06:23 Dose: 500,000 units Pantoprazole Sodium (Protonix -) 20 mg PO DAILY [facility] Last Admin: 03/16/19 10:20 Dose: 20 mg Prednisone (Deltasone -) 30 mg PO DAILY [facility] Torsemide (Demadex -) 20 mg PO DAILY [facility] Last Admin: 03/16/19 10:20 Dose: 20 mg - Objective Vital Signs: Vital Signs Temperature 97.9 F 03/16/19 14:01 Pulse Rate 73 03/16/19 14:01 Respiratory Rate 20 03/16/19 14:01 Blood Pressure 119/60 03/16/19 14:01 O2 Sat by Pulse Oximetry (%) 96 03/15/19 21:00 Constitutional: Yes: Well Nourished, Calm Eyes: Yes: WNL HENT: Yes: WNL Neck: Yes: WNL Cardiovascular: Yes: Regular Rate and Rhythm, S1, S2 Respiratory: Yes: Diminished Gastrointestinal: Yes: Normal Bowel Sounds, Soft, Abdomen, Obese Extremities: Yes: WNL Edema: Yes Labs: CBC, BMP 03/16/19 08:05 03/14/19 09:03 INR, PTT INR 0.92 (0.83-1.09) 03/08/19 16:50 Assessment/Plan Problem List - Problems (1) COPD exacerbation Code(s): J44.1 - CHRONIC OBSTRUCTIVE PULMONARY DISEASE W (ACUTE) EXACERBATION (2) Obese Code(s): E66.9 - OBESITY, UNSPECIFIED (3) SOB (shortness of breath) Code(s): R06.02 - SHORTNESS OF BREATH (4) Arteriosclerotic heart disease (ASHD) Code(s): I25.10 - ATHSCL HEART DISEASE OF [place] CORONARY ARTERY W/O ANG PCTRS (5) Diabetes Code(s): E11.9 - TYPE 2 DIABETES MELLITUS WITHOUT COMPLICATIONS (6) HTN (hypertension) Code(s): I10 - ESSENTIAL (PRIMARY) HYPERTENSION (7) S/P CABG (coronary artery bypass graft) Code(s): Z95.1 - PRESENCE OF AORTOCORONARY BYPASS GRAFT Assessment/Plan (?) OSAS PREDNISONE BRONCHODILATORS ANTIBIOTICS DC PLANNING OUTPATIENT SLEEP STUDIES DR DUKE
--- NOTE | 2019-03-16 16:36 | PN ---
Progress Note, Physician - Current Medication List Current Medications: Active Medications Acetaminophen (Tylenol -) 650 mg PO Q6H PRN PRN Reason: FEVER Albuterol Sulfate (Ventolin 0.083% Nebulizer Soln -) 1 amp NEB Q4H PRN PRN Reason: SHORTNESS OF BREATH Albuterol Sulfate (Ventolin Hfa Inhaler -) 1 puff IH TID PRN PRN Reason: SHORT OF BREATH/WHEEZING Albuterol/Ipratropium (Duoneb -) 1 amp NEB Q6H PRN PRN Reason: WHEEZING Last Admin: 03/15/19 21:28 Dose: 1 amp Allopurinol (Zyloprim -) 100 mg PO DAILY [facility] Last Admin: 03/16/19 10:20 Dose: 100 mg Atorvastatin Calcium (Lipitor -) 10 mg PO HS [facility] Last Admin: 03/15/19 21:57 Dose: 10 mg Budesonide/Formoterol Fumarate (Symbicort 80/4.5mcg -) 2 puff IH BID [facility] Last Admin: 03/16/19 10:21 Dose: 2 puff Clopidogrel Bisulfate (Plavix -) 75 mg PO DAILY [facility] Last Admin: 03/16/19 10:20 Dose: 75 mg Duloxetine HCl (Cymbalta -) 20 mg PO DAILY [facility] Last Admin: 03/16/19 10:20 Dose: 20 mg Famotidine (Pepcid -) 20 mg PO BID [facility] Last Admin: 03/16/19 10:21 Dose: 20 mg Folic Acid (Folic Acid -) 1 mg PO DAILY [facility] Last Admin: 03/16/19 10:20 Dose: 1 mg Gabapentin (Neurontin -) 400 mg PO Q8H PRN PRN Reason: PAIN LEVEL 6-10 Insulin Aspart (Novolog Vial Sliding Scale -) 1 vial SQ BIDAC [facility] Last Admin: 03/16/19 06:23 Dose: Not Given Isosorbide Mononitrate (Imdur -) 30 mg PO HS [facility] Last Admin: 03/15/19 21:57 Dose: 30 mg Lisinopril (Prinivil) 10 mg PO DAILY [facility] Last Admin: 03/16/19 10:20 Dose: 10 mg Metformin HCl (Glucophage -) 500 mg PO BIDAC [facility] Last Admin: 03/16/19 06:23 Dose: 500 mg Metoprolol Succinate (Toprol Xl -) 25 mg PO DAILY [facility] Last Admin: 03/16/19 10:20 Dose: 25 mg Nitroglycerin (Nitrostat -) 0.4 mg SL Q5M PRN PRN Reason: CHEST PAIN Last Admin: 03/09/19 00:11 Dose: 0.4 mg Nystatin (Nystatin Oral Suspension -) 500,000 units PO Q6HPO [facility] Stop: 03/25/19 11:59 Last Admin: 03/16/19 14:48 Dose: 500,000 units Pantoprazole Sodium (Protonix -) 20 mg PO DAILY [facility] Last Admin: 03/16/19 10:20 Dose: 20 mg Prednisone (Deltasone -) 30 mg PO DAILY [facility] Torsemide (Demadex -) 20 mg PO DAILY [facility] Last Admin: 03/16/19 10:20 Dose: 20 mg - Objective Vital Signs: Vital Signs Temperature 97.9 F 03/16/19 14:01 Pulse Rate 73 03/16/19 14:01 Respiratory Rate 20 03/16/19 14:01 Blood Pressure 119/60 03/16/19 14:01 O2 Sat by Pulse Oximetry (%) 96 03/15/19 21:00 Labs: CBC, BMP 03/16/19 08:05 03/14/19 09:03 INR, PTT INR 0.92 (0.83-1.09) 03/08/19 16:50 Problem List - Problems (1) COPD exacerbation Code(s): J44.1 - CHRONIC OBSTRUCTIVE PULMONARY DISEASE W (ACUTE) EXACERBATION (2) ACS (acute coronary syndrome) Code(s): I24.9 - ACUTE ISCHEMIC HEART DISEASE, UNSPECIFIED (3) Obese Code(s): E66.9 - OBESITY, UNSPECIFIED Qualifiers: Body mass index: BMI 60.0-69.9 (4) Sedentary lifestyle Code(s): Z91.89 - OTH PERSONAL RISK FACTORS, NOT ELSEWHERE CLASSIFIED (5) Diabetes Code(s): E11.9 - TYPE 2 DIABETES MELLITUS WITHOUT COMPLICATIONS (6) HTN (hypertension) Code(s): I10 - ESSENTIAL (PRIMARY) HYPERTENSION (7) Hyperlipidemia Code(s): E78.5 - HYPERLIPIDEMIA, UNSPECIFIED (8) S/P CABG (coronary artery bypass graft) Code(s): Z95.1 - PRESENCE OF AORTOCORONARY BYPASS GRAFT (9) Depression Code(s): F32.9 - MAJOR DEPRESSIVE DISORDER, SINGLE EPISODE, UNSPECIFIED (10) Sleep apnea Code(s): G47.30 - SLEEP APNEA, UNSPECIFIED
[2019-03-16] MEDS: ATORVASTATIN CA 10 MG TABLET (FP) PO SCH (22:01)
[2019-03-16] MEDS: ISOSORBIDE MONONITRATE 30 MG TAB.SR.24H (FP) PO SCH (22:01)
[2019-03-16 23:01] VITALS: PULSE 67; TEMP 97.8
[2019-03-17] MEDS: NYSTATIN 500,000 UNITS/5 ML SUSPENSION PO SCH ×3 (00:11→11:56)
[2019-03-17] MEDS: INSULIN SLIDING SCALE (NOVOLOG) 1 VIAL SQ SCH (06:18)
[2019-03-17] MEDS: metFORMIN HCL 500 MG TABLET (FP) PO SCH (06:18)
[2019-03-17 08:02] VITALS: BP 146/61
[2019-03-17 08:03] LABS: BASO % 0.1 % (0-2.0); EOS % 0.2 % (0-4.5); HEMATOCRIT 47.6 % (32.4-45.2); HEMOGLOBIN 14.9 GM/dL (10.7-15.3); LYMPH % 20.4 % (8-40); MCH 22.8 pg (25.7-33.7); MCHC 31.2 g/dl (32.0-36.0); MEAN CELL VOLUME 73.1 fl (80-96); MEAN PLT VOLUME 8.3 fl (7.5-11.1); MONO % 8.5 % (3.8-10.2); NEUT % 70.8 % (42.8-82.8); PLATELET COUNT 348 K/MM3 (134-434); RBC 6.51 M/mm3 (3.60-5.2); RDW 15.4 % (11.6-15.6)
[2019-03-17 08:17] LABS: ALBUMIN 3.3 g/dl (3.4-5.0); BILIRUBIN,TOTAL 0.9 mg/dL (0.2-1); BLOOD UREA NITROGEN 42.2 mg/dL (7-18); CALCIUM 9.6 mg/dL (8.5-10.1); CREATININE 0.9 mg/dL (0.55-1.3); POTASSIUM 3.8 mmol/L (3.5-5.1); TOT PROT 6.8 g/dl (6.4-8.2)
--- NOTE | 2019-03-17 09:27 | PN ---
Progress Note, Physician Chief Complaint: repeat WBC still 20k afebrile feeling much better; on tapering steroids; wants to go home to f/u outpt as advised - Current Medication List Current Medications: Active Medications Acetaminophen (Tylenol -) 650 mg PO Q6H PRN PRN Reason: FEVER Albuterol Sulfate (Ventolin 0.083% Nebulizer Soln -) 1 amp NEB Q4H PRN PRN Reason: SHORTNESS OF BREATH Albuterol Sulfate (Ventolin Hfa Inhaler -) 1 puff IH TID PRN PRN Reason: SHORT OF BREATH/WHEEZING Albuterol/Ipratropium (Duoneb -) 1 amp NEB Q6H PRN PRN Reason: WHEEZING Last Admin: 03/15/19 21:28 Dose: 1 amp Allopurinol (Zyloprim -) 100 mg PO DAILY [facility] Last Admin: 03/16/19 10:20 Dose: 100 mg Atorvastatin Calcium (Lipitor -) 10 mg PO HS [facility] Last Admin: 03/16/19 22:01 Dose: 10 mg Budesonide/Formoterol Fumarate (Symbicort 80/4.5mcg -) 2 puff IH BID [facility] Last Admin: 03/16/19 22:00 Dose: 2 puff Clopidogrel Bisulfate (Plavix -) 75 mg PO DAILY [facility] Last Admin: 03/16/19 10:20 Dose: 75 mg Duloxetine HCl (Cymbalta -) 20 mg PO DAILY [facility] Last Admin: 03/16/19 10:20 Dose: 20 mg Famotidine (Pepcid -) 20 mg PO BID [facility] Last Admin: 03/16/19 22:01 Dose: 20 mg Folic Acid (Folic Acid -) 1 mg PO DAILY [facility] Last Admin: 03/16/19 10:20 Dose: 1 mg Gabapentin (Neurontin -) 400 mg PO Q8H PRN PRN Reason: PAIN LEVEL 6-10 Insulin Aspart (Novolog Vial Sliding Scale -) [facility] Admin: 03/17/19 06:18 Dose: 2 units Isosorbide Mononitrate (Imdur -) 30 mg PO HS [facility] Last Admin: 03/16/19 22:01 Dose: 30 mg Lisinopril (Prinivil) 10 mg PO DAILY [facility] Last Admin: 03/16/19 10:20 Dose: 10 mg Metformin HCl (Glucophage -) 500 mg PO BIDAC [facility] Last Admin: 03/17/19 06:18 Dose: 500 mg Metoprolol Succinate (Toprol Xl -) 25 mg PO DAILY [facility] Last Admin: 03/16/19 10:20 Dose: 25 mg Nitroglycerin (Nitrostat -) 0.4 mg SL Q5M PRN PRN Reason: CHEST PAIN Last Admin: 03/09/19 00:11 Dose: 0.4 mg Nystatin (Nystatin Oral Suspension -) 500,000 units PO Q6HPO [facility] Stop: 03/25/19 11:59 Last Admin: 03/17/19 06:17 Dose: 500,000 units Pantoprazole Sodium (Protonix -) 20 mg PO DAILY [facility] Last Admin: 03/16/19 10:20 Dose: 20 mg Prednisone (Deltasone -) 30 mg PO DAILY [facility] Torsemide (Demadex -) 20 mg PO DAILY [facility] Last Admin: 03/16/19 10:20 Dose: 20 mg - Objective Vital Signs: Vital Signs Temperature 97.8 F 03/17/19 08:00 Pulse Rate 67 03/17/19 08:00 Respiratory Rate 15 03/17/19 08:00 Blood Pressure 146/61 03/17/19 08:00 O2 Sat by Pulse Oximetry (%) 96 03/16/19 21:00 Constitutional: Yes: No Distress, Calm Eyes: Yes: Conjunctiva Clear HENT: Yes: Atraumatic Neck: Yes: Supple Cardiovascular: Yes: Regular Rate and Rhythm Respiratory: Yes: CTA Bilaterally Gastrointestinal: Yes: Soft. No: Tenderness Genitourinary: No: Hematuria Musculoskeletal: No: Joint Stiffness, Joint Swelling Extremities: No: Cold, Cool Edema: No Integumentary: No: Rash, Venous Stasis Changes Neurological: Yes: Alert ...Motor Strength: WNL Psychiatric: Yes: Alert. 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
[2019-03-17] MEDS ORDERED: PT OWN MED DRAWER 7, Y5N ONE (09:39)
[2019-03-17] MEDS: DULoxetine HCL 20 MG CAPSULE.DR PO SCH (09:42)
[2019-03-17] MEDS: TORSEMIDE 20 MG TABLET (FP) PO SCH (09:42)
[2019-03-17] MEDS: ALLOPURINOL 100 MG TABLET (FP) PO SCH (09:42)
[2019-03-17] MEDS: LISINOPRIL 5 MG TABLET (FP) PO SCH (09:42)
[2019-03-17] MEDS: FOLIC ACID 1 MG TABLET (FP) PO SCH (09:43)
[2019-03-17] MEDS: PANTOPRAZOLE 20 MG TABLET (FP) PO SCH (09:43)
[2019-03-17] MEDS: FAMOTIDINE 20 MG TABLET PO SCH (09:43)
[2019-03-17] MEDS: CLOPIDOGREL BISULFATE 75 MG TABLET (FP) PO SCH (09:43)
[2019-03-17] MEDS: BUDESONIDE/FORMETEROL FUMARATE 80/4.5 mcg INHALER IH SCH (09:44)
[2019-03-17] MEDS: metoPROLOL SUCCINATE 25 MG TAB.SR.24H (FP) PO SCH (09:44)
[2019-03-17] MEDS ORDERED: predniSONE 10 MG TABLET (UD) PO SCH (10:00)
--- NOTE | 2019-03-17 13:08 | PN ---
Progress Note, Physician History of Present Illness: pulmonary alert,comfortable,oob-chair,-sob - Current Medication List Current Medications: Active Medications Acetaminophen (Tylenol -) 650 mg PO Q6H PRN PRN Reason: FEVER Albuterol Sulfate (Ventolin 0.083% Nebulizer Soln -) 1 amp NEB Q4H PRN PRN Reason: SHORTNESS OF BREATH Albuterol Sulfate (Ventolin Hfa Inhaler -) 1 puff IH TID PRN PRN Reason: SHORT OF BREATH/WHEEZING Albuterol/Ipratropium (Duoneb -) 1 amp NEB Q6H PRN PRN Reason: WHEEZING Last Admin: 03/15/19 21:28 Dose: 1 amp Allopurinol (Zyloprim -) 100 mg PO DAILY [facility] Last Admin: 03/17/19 09:42 Dose: 100 mg Atorvastatin Calcium (Lipitor -) 10 mg PO HS [facility] Last Admin: 03/16/19 22:01 Dose: 10 mg Budesonide/Formoterol Fumarate (Symbicort 80/4.5mcg -) 2 puff IH BID [facility] Last Admin: 03/17/19 09:44 Dose: 2 puff Clopidogrel Bisulfate (Plavix -) 75 mg PO DAILY [facility] Last Admin: 03/17/19 09:43 Dose: 75 mg Duloxetine HCl (Cymbalta -) 20 mg PO DAILY [facility] Last Admin: 03/17/19 09:42 Dose: 20 mg Famotidine (Pepcid -) 20 mg PO BID [facility] Last Admin: 03/17/19 09:43 Dose: 20 mg Folic Acid (Folic Acid -) 1 mg PO DAILY [facility] Last Admin: 03/17/19 09:43 Dose: 1 mg Gabapentin (Neurontin -) 400 mg PO Q8H PRN PRN Reason: PAIN LEVEL 6-10 Insulin Aspart (Novolog Vial Sliding Scale -) 1 vial SQ BIDAC [facility] Last Admin: 03/17/19 06:18 Dose: 2 units Isosorbide Mononitrate (Imdur -) 30 mg PO HS [facility] Last Admin: 03/16/19 22:01 Dose: 30 mg Lisinopril (Prinivil) 10 mg PO DAILY [facility] Last Admin: 03/17/19 09:42 Dose: 10 mg Metformin HCl (Glucophage -) 500 mg PO BIDAC [facility] Last Admin: 03/17/19 06:18 Dose: 500 mg Metoprolol Succinate (Toprol Xl -) 25 mg PO DAILY [facility] Last Admin: 03/17/19 09:44 Dose: 25 mg Nitroglycerin (Nitrostat -) 0.4 mg SL Q5M PRN PRN Reason: CHEST PAIN Last Admin: 03/09/19 00:11 Dose: 0.4 mg Nystatin (Nystatin Oral Suspension -) 500,000 units PO Q6HPO [facility] Stop: 03/25/19 11:59 Last Admin: 03/17/19 11:56 Dose: 500,000 units Pantoprazole Sodium (Protonix -) 20 mg PO DAILY [facility] Last Admin: 03/17/19 09:43 Dose: 20 mg Prednisone (Deltasone -) 30 mg PO DAILY [facility] Last Admin: 03/17/19 09:42 Dose: 30 mg Torsemide (Demadex -) 20 mg PO DAILY [facility] Last Admin: 03/17/19 09:42 Dose: 20 mg - Objective Vital Signs: Vital Signs Temperature 97.8 F 03/17/19 08:00 Pulse Rate 67 03/17/19 08:00 Respiratory Rate 15 03/17/19 08:00 Blood Pressure 146/61 03/17/19 08:00 O2 Sat by Pulse Oximetry (%) 96 03/17/19 09:00 Constitutional: Yes: Well Nourished, Calm Eyes: Yes: WNL HENT: Yes: WNL Neck: Yes: WNL Cardiovascular: Yes: Regular Rate and Rhythm, S1, S2 Respiratory: Yes: CTA Bilaterally Gastrointestinal: Yes: Normal Bowel Sounds, Soft Extremities: Yes: WNL Edema: No Labs: CBC, BMP 03/17/19 07:15 03/17/19 06:00 INR, PTT INR 0.92 (0.83-1.09) 03/08/19 16:50 Assessment/Plan Problem List - Problems (1) COPD exacerbation Code(s): J44.1 - CHRONIC OBSTRUCTIVE PULMONARY DISEASE W (ACUTE) EXACERBATION (2) Obese Code(s): E66.9 - OBESITY, UNSPECIFIED (3) SOB (shortness of breath) Code(s): R06.02 - SHORTNESS OF BREATH (4) Arteriosclerotic heart disease (ASHD) Code(s): I25.10 - ATHSCL HEART DISEASE OF [place] CORONARY ARTERY W/O ANG PCTRS (5) Diabetes Code(s): E11.9 - TYPE 2 DIABETES MELLITUS WITHOUT COMPLICATIONS (6) HTN (hypertension) Code(s): I10 - ESSENTIAL (PRIMARY) HYPERTENSION (7) S/P CABG (coronary artery bypass graft) Code(s): Z95.1 - PRESENCE OF AORTOCORONARY BYPASS GRAFT Assessment/Plan (?) [facility] PLANNING OUTPATIENT SLEEP STUDIES DR DUKE
== END 2019-03-17 15:30 | disposition home health service (06) | DRG 191 ==
LOC: JER 15:13 → JERFT 15:13 → JERBED 18:59 → J6S 03-09 00:07
PROVIDERS: ADMIT Internal Medicine; ATTEND Internal Medicine
DX: J44.1 Chronic obstructive pulmonary disease with (acute) exacerbation (principal); I24.9 Acute ischemic heart disease, unspecified; B37.0 Candidal stomatitis; I25.10 Atherosclerotic heart disease of native coronary artery without angina pectoris; I45.10 Unspecified right bundle-branch block; E78.5 Hyperlipidemia, unspecified; M10.9 Gout, unspecified; G47.33 Obstructive sleep apnea (adult) (pediatric); E11.9 Type 2 diabetes mellitus without complications; E66.9 Obesity, unspecified; F41.8 Other specified anxiety disorders; I11.0 Hypertensive heart disease with heart failure; I50.9 Heart failure, unspecified; I34.0 Nonrheumatic mitral (valve) insufficiency; R26.81 Unsteadiness on feet; R07.0 Pain in throat; H91.13 Presbycusis, bilateral; E21.3 Hyperparathyroidism, unspecified; Z95.1 Presence of aortocoronary bypass graft; Z95.5 Presence of coronary angioplasty implant and graft; Z68.32 Body mass index [BMI] 32.0-32.9, adult; Z91.89 Other specified personal risk factors, not elsewhere classified
CPT/HCPCS: 36415; 71045-TC-FY; 80048; 80053; 80061; 82550; 82803; 82962; 83721; 83880; 84484; 85025; 85027; 85610; 85730; 93005; 93010; 94640; 97116-GP; 97161-GP; 99283-25

== ENCOUNTER 2019-03-26 11:58 | Emergency (ER) | payer OTHER, BC ==
[2019-03-26 12:27] VITALS: TEMP 97.6; BMI 34.7
--- NOTE | 2019-03-26 12:28 | PDOC ---
History of Present Illness - General Stated Complaint: EPISTAXIS/SYNCOPIC Time Seen by Provider: 03/26/19 12:06 - History of Present Illness Initial Comments: 69 year old female with PMH of COPD, CHF (right sided heart failure RVSP 45mmhg) , HTN, and gout presenting with weakness, lightheadedness, and headache since this AM. She was recently treated for a COPD exacerbation and states that her breathing has improved. She is eating and drinking at her normal rate. She went to buddhist yesterday and felt fine last night. Denies any fevers, chills, nausea , vomiting, chest pain, diarrhea, or urinary symptoms. 03/26/19 12:20 Past History 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 History Allergies/Adverse Reactions: Allergies Allergy/AdvReac Type Severity Reaction Status Date / Time aspirin Allergy Verified 03/26/19 12:22 Penicillins Allergy Hives Verified 03/26/19 12:22 codeine [Codeine] AdvReac HALLUCINATIONS, Verified 03/26/19 12:22 DROWSY morphine AdvReac HALLUCINATI Verified 03/26/19 12:22 ONS Home Medications: Ambulatory Orders Acetaminophen [Tylenol .Regular Strength -] 650 mg PO Q6H PRN #0 tablet Albuterol Sulfate [Proair Hfa -] 1 inh PO ASDIR PRN 90 Days hfa.aer.ad Budesonide/Formeterol Fumarate [SYMBICORT 80/4.5mcg -] 2 inh IH BID 90 Days inhaler 05/17/15 Clopidogrel Bisulfate [Plavix -] 75 mg PO DAILY #90 tablet 05/17/15 Folic Acid - 1 mg PO DAILY #90 tablet 05/17/15 Metoprolol Succinate [Toprol XL -] 25 mg PO DAILY #90 tab.sr.24h 05/17/15 Torsemide 20 mg PO DAILY #90 tablet 05/17/15 metFORMIN HCL [Metformin HCl] 500 mg PO BID #180 tablet 05/17/15 Cholecalciferol (Vitamin D3) [Vitamin D3] 1,000 unit PO ASDIR 01/18/17 Duloxetine HCl [Cymbalta] 20 mg PO DAILY 01/18/17 Gabapentin 400 mg PO TID PRN 01/18/17 Isosorbide Mononitrate [Imdur -] 30 mg PO HS 01/18/17 Nitroglycerin [Nitrostat] 0.4 mg SL PRN 01/18/17 Pravastatin Sodium [Pravachol] 40 mg PO HS 01/18/17 Ranitidine HCl [Zantac] 150 mg PO BID 01/18/17 Walker [Ultra-Light Rollator] 1 each MC DAILY #1 each 11/06/18 Albuterol 2.5/Ipratropium 0.5 [Duoneb -] 1 neb IH QID 7 Days #30 vial.neb. 03/03 Allopurinol [Zyloprim -] 100 mg PO DAILY 03/03/19 Albuterol 0.083% Nebulizer Sil [Ventolin 0.083% Nebulizer Soln -] 1 neb NEB Q4H PRN #30 vial 03/04/19 Lisinopril [Prinivil] 10 mg PO DAILY tablet 03/17/19 Nystatin Oral Suspension - [Nystatin Oral Susp 857617 Units/5 ML -] 500,000 units PO Q6HPO #1 cup 03/17/19 Pantoprazole Sodium [Protonix -] 20 mg PO DAILY tablet.ec 03/17/19 predniSONE [Deltasone -] 10 mg PO DAILY #12 tablet 03/17/19 Nitrofurantoin Monohyd/M-Cryst [Macrobid -] 100 mg PO BID #14 capsule 03/26/19 Anemia: Yes Asthma: Yes (inhalers at home) Cancer: No Cardiac Disorders: Yes (ANGINA, STENTS X2) CVA: No COPD: Yes CHF: Yes Dementia: No Diabetes: Yes GI Disorders: Yes (ACID REFLUX) Disorders: No HTN: Yes Hypercholesterolemia: Yes Liver Disease: No Seizures: No Thyroid Disease: No Lung CA: (COPD) - Surgical History Abdominal Surgery: No Appendectomy: No Cardiac Surgery: Yes (DOUBLE AND TRIPLE BYPASS) Cholecystectomy: No Lung Surgery: No Neurologic Surgery: No Orthopedic Surgery: Yes (rt rotator cuff repair, rt knee surgery) - Immunization History Immunization Up to Date: No - Psycho Social/Smoking Cessation Hx Smoking Status: Yes Smoking History: Never smoked Have you smoked in the past 12 months: No Number of Cigarettes Smoked Daily: 0 If you are a former smoker, when did you quit?: about 30 years ago Hx Alcohol Use: No Drug/Substance Use Hx: No Substance Use Type: None Hx Substance Use Treatment: No Review of Systems - Review of Systems Constitutional: No: Chills, Diaphoresis, Fever HEENTM: No: Eye Pain, Blurred Vision, Tearing Respiratory: Yes: Shortness of Breath. No: Cough, Orthopnea, Wheezing Cardiac (ROS): Yes: Lightheadedness. No: Chest Pain, Irregular Heart Rate, Palpitations, Syncope, Chest Tightness ABD/GI: No: Diarrhea, Nausea, Vomiting : No: Burning, Dysuria, Discharge Musculoskeletal: No: Back Pain, Joint Pain Integumentary: No: Bruising, Erythema, Flushing Neurological: No: Headache, Numbness, Paresthesia Psychiatric: No: Anxiety, Depression Endocrine: No: Increased Hunger, Increased Thirst, Increased Urine Hematologic/Lymphatic: Yes: Easy Bruising *Physical Exam - Physical Exam General Appearance: Yes: Nourished, Appropriately Dressed, Obese. No: Apparent Distress HEENT: positive: EOMI, NARESH, Normal ENT Inspection, Normal Voice Neck: positive: Trachea midline, Normal Thyroid, Supple. negative: Tender, Rigid Respiratory/Chest: negative: Chest Tender, Lungs Clear (slightly diminished breath sounds bilaterally), Normal Breath Sounds, Respiratory Distress Cardiovascular: positive: Regular Rhythm, Regular Rate Gastrointestinal/Abdominal: positive: Normal Bowel Sounds, Flat, Soft. negative : Tender Lymphatic: negative: Adenopathy, Tenderness Musculoskeletal: positive: Normal Inspection. negative: Decreased Range of Motion Extremity: positive: Normal Capillary Refill, Normal Inspection, Normal Range of Motion. negative: Tender Integumentary: positive: Normal Color, Dry, Warm Neurologic: positive: Fully Oriented, Alert, Normal Mood/Affect, Normal Response , Motor Strength 5/5 ED Treatment Course - LABORATORY CBC & Chemistry Diagram: 03/26/19 12:40 03/26/19 12:29 Medical Decision Making - Medical Decision Making 69 year old female with recent COPD presenting with generalized weakness this morning after a weekend of epistaxis. Labs roughly WNL and not anemic, but UA corroborating UTI. Spoke to Dr. Christiansen and relayed that epistaxis stopped and patient had a UTI,. She was prescribed macronbid and given one dose in our ED. 03/26/19 15:39 Discharge - Discharge Information Problems reviewed: Yes Clinical Impression/Diagnosis: Weakness UTI (urinary tract infection) Qualifiers: Urinary tract infection type: site unspecified Hematuria presence: with hematuria Qualified Code(s): N39.0 - Urinary tract infection, site not specified Condition: Stable Disposition: HOME - Admission No - Additional Discharge Information Prescriptions: Nitrofurantoin Monohyd/M-Cryst [Macrobid -] 100 mg PO BID #14 capsule - Follow up/Referral - Patient Discharge Instructions Patient Printed Discharge Instructions: DI for Urinary Tract Infection (UTI) Additional Instructions: You have an infection in your urine. Please take your medicine twice a day for 7 days. Please see your PCP within one week. Please return to the ED if you have new or worsening symptoms including fevers, chills, worsening weakness, or worsening symptoms - Post Discharge Activity
[2019-03-26] MEDS ORDERED: SODIUM CHLORIDE 0.9% 500 ML INFUS.BAG IV ONE (12:42)
[2019-03-26] MEDS ORDERED: ACETAMINOPHEN 1000 MG/100 ML VIAL (NON FORMULARY) IVPB ONE (12:43)
[2019-03-26] MEDS ORDERED: ACETAMINOPHEN INJECTION 100 ML IVPB ONE (12:52)
[2019-03-26 13:05] LABS: BASO % 0.3 % (0-2.0); HEMATOCRIT 35.7 % (32.4-45.2); HEMOGLOBIN 10.9 GM/dL (10.7-15.3); LYMPH % 30.7 % (8-40); MCH 22.5 pg (25.7-33.7); MCHC 30.5 g/dl (32.0-36.0); MEAN CELL VOLUME 73.8 fl (80-96); MEAN PLT VOLUME 7.4 fl (7.5-11.1); MONO % 9.4 % (3.8-10.2); NEUT % 57.6 % (42.8-82.8); PLATELET COUNT 219 K/MM3 (134-434); RBC 4.83 M/mm3 (3.60-5.2); RDW 15.6 % (11.6-15.6); WHITE BLOOD COUNT 7.9 K/mm3 (4.0-10.0)
--- NOTE | 2019-03-26 13:09 | PDOC ---
Attending Attestation - Resident Resident Name: Nolan Hodges - ED Attending Attestation I have performed the following: I have examined & evaluated the patient, The case was reviewed & discussed with the resident, I agree w/resident's findings & plan - HPI HPI: 03/26/19 13:07 Marsha 69 y/o female with PMH of COPD, right sided CHF, CAD s/p CABG (2 stents on ASA and Plavix), HTN, pre-diabetes, NED on nocturnal CPAP, gout, hyperparathyroidism, arthritis, presenting with dizziness and hypotension from PMD Dr Christiansen's office. she has been having intermittent periods of epistaxis x 3 days, each lasting <10 minutes after nose blowing due to URI sx. c/o generalized weakness, lightheadedness, and headache since this AM. She was recently treated for a COPD exacerbation and states that her breathing has improved, but not taking her prednisone steroids. She is eating and drinking at her normal rate. She went to taoist yesterday and felt fine last night. Denies any fevers, chills, nausea, vomiting, chest pain, SOB, focal weakness/ paresthesias, diarrhea, or urinary symptoms. - Physicial Exam PE: 03/26/19 13:09 Agree with the resident's HPI and PE as documented in the electronic medical record. NAD, well appearing, EOMI, PERRL, nl conjunctiva, anicteric; right nare anterior septum with dried blood, no active bleeding. No sinus tenderness. Oropharynx clear, normal phonation. neck supple. lungs clear, RRR, no murmur, abdomen soft nontender. no rebound, guarding. obese. Back nontender. SCHMITT x4, no focal neuro deficits. No peripheral edema. normal color for ethnicity, WWP. - Medical Decision Making 03/26/19 13:09 Vital Signs Temp Pulse Resp BP Pulse Ox 97.6 F 74 18 116/46 L 99 03/26/19 12:22 03/26/19 12:22 03/26/19 12:22 03/26/19 12:22 03/26/19 12:22 labs and lytes wnl. urine +UTI, f/u urine culture macrobid x1, x 5 day course hydration given, trop neg, unlikely ACS/cardiac lytes wnl. normotensive here, without acute distress, no e/o shock or hypotension D/W Dr Christiansen, appropriate for outpatient followup, as pt clinically improved and no e/o life threatening condition/illness. no epistaxis here, well controlled; likely from environment and nose blowing, which pt was advised to minimize, humidifer and hydration advised. DC stable condition, return precautions, PCP followup. 03/26/19 17:31 Heart Score/ECG Review #1 ECG reviewed & interpreted by me at: 12:20 General ECG Interpretation: Sinus Rhythm, Normal Rate, Normal Intervals 03/26/19 13:09 EKG normal sinus rhythm at 62 bpm, borderline IL prolongation 200ms, narrow QRS , ST and T wave segments and morphology normal.
[2019-03-26 13:34] LABS: ALBUMIN 2.7 g/dl (3.4-5.0); ALK PHOS 72 U/L (45-117); ANION GAP 6 MMOL/L (8-16); BILIRUBIN,TOTAL 0.3 mg/dL (0.2-1); BLOOD UREA NITROGEN 14.3 mg/dL (7-18); CALCIUM 8.7 mg/dL (8.5-10.1); CHLORIDE 108 mmol/L (98-107); CO2 27 mmol/L (21-32); CREATININE 0.7 mg/dL (0.55-1.3); GLUCOSE,RANDOM 95 mg/dL (74-106); MAGNESIUM 1.7 mg/dL (1.8-2.4); PHOSPHOROUS 2.8 mg/dL (2.5-4.9); POTASSIUM 4.1 mmol/L (3.5-5.1); SGOT/AST 20 U/L (15-37); SGPT/ALT 41 U/L (13-61); SODIUM 141 mmol/L (136-145); TOT PROT 5.6 g/dl (6.4-8.2)
[2019-03-26 13:57] LABS: EPI CELLS 13.1 /HPF (0-5/HPF); HYALINE CASTS 12 /lpf (0-8); URINE APPEARANCE CLOUDY; URINE BACTERIA 220.1 /hpf (NEGATIVE); URINE BILIRUBIN NEGATIVE (NEGATIVE); URINE COLOR YELLOW; URINE GLUCOSE (UA) NEGATIVE (NEGATIVE); URINE KETONE NEGATIVE (NEGATIVE); URINE LEUK ESTERASE 3+ (NEGATIVE); URINE NITRITE NEGATIVE (NEGATIVE); URINE PROTEIN TRACE (NEGATIVE); URINE RBC 1 /hpf (0-4); URINE UROBILINOGEN 0.2 mg/dL (0.2-1.0); URINE WBC 59 /hpf (0-5)
[2019-03-26] MEDS ORDERED: NITROFURANTOIN MACROCRYSTAL 50 MG CAPSULE (FP) PO SCH (15:45)
[2019-03-26] MEDS ORDERED: NITROFURANTOIN MACROCRYSTAL 50 MG CAPSULE (FP) ONE (15:52)
[2019-03-26 15:59] VITALS: BP 138/68; PULSE 69
--- NOTE | 2019-03-27 10:16 | EKG ---
Test Reason : Blood Pressure : / mmHG Vent. Rate : 072 BPM Atrial Rate : 072 BPM P-R Int : 200 ms QRS Dur : 092 ms QT Int : 368 ms P-R-T Axes : 064 012 047 degrees QTc Int : 402 ms NORMAL SINUS RHYTHM NORMAL ECG WHEN COMPARED WITH ECG OF 08-MAR-2019 16:32, CRITERIA FOR SEPTAL INFARCT ARE NO LONGER PRESENT Confirmed by Wong Rios MD ([id number]) on 03/27/2019 10:16:26 AM Referred By: Confirmed By:Wong Rios MD
== END 2019-03-26 15:59 | disposition home or self-care (01) ==
LOC: JER 11:58
PROC: 3E033NZ Introduction of Analgesics, Hypnotics, Sedatives into Peripheral Vein, Percutaneous Approach (ICD-10-PCS; principal; 2019-03-26)
DX: N39.0 Urinary tract infection, site not specified (principal); R31.9 Hematuria, unspecified; I25.119 Atherosclerotic heart disease of native coronary artery with unspecified angina pectoris; I11.0 Hypertensive heart disease with heart failure; I50.89 Other heart failure; Z95.1 Presence of aortocoronary bypass graft; Z95.5 Presence of coronary angioplasty implant and graft; E11.9 Type 2 diabetes mellitus without complications; Z79.84 Long term (current) use of oral hypoglycemic drugs; J44.9 Chronic obstructive pulmonary disease, unspecified; J45.998 Other asthma; D64.9 Anemia, unspecified; E78.00 Pure hypercholesterolemia, unspecified; K21.9 Gastro-esophageal reflux disease without esophagitis; Z99.89 Dependence on other enabling machines and devices; Z88.5 Allergy status to narcotic agent; Z88.6 Allergy status to analgesic agent; Z88.0 Allergy status to penicillin
CPT/HCPCS: 36415; 71045-TC-FY; 80053; 81003; 83735; 83880; 84100; 84484; 85025; 87086; 93005; 93010; 99284-25; J0131

== ENCOUNTER 2019-10-17 16:43 | Inpatient (IN) | payer OTHER, BC ==
--- NOTE | 2019-10-17 18:24 | PDOC ---
History of Present Illness - General Chief Complaint: Abnormal Lab Results (Outside) Stated Complaint: Abnormal Lab Results Time Seen by Provider: 10/17/19 17:42 History Source: [facility] Records Exam Limitations: Physical Impairment - History of Present Illness Initial Comments: 10/17/19 18:23 69y F with PMH of CHF, COPD, IDDM, HTN, HLD, CVA s/p thrombectomy 09/2019 at [facility], Respiratory failure s/p tracheostomy, PEG tube sent from [facility] for hyperglycemia and "dehydration". Per OR, blood sugar was "high" and BUN 111. Humulin 15u Q8h, humalog ss got 10u today. Pt is slow to respond and keeps eyes closed at baseline. Unable to obtain history from patient. per lab results sent from OR, glucose in the 400s, BUN 111, Cr 1.6. pt has had normal kidney function in the past. PMD: [place] PMH: see hpi PSH: see hpi Meds: see med rec Allergies: PCN Past History - Medical History Allergies/Adverse Reactions: Allergies Allergy/AdvReac Type Severity Reaction Status Date / Time aspirin Allergy Verified 10/17/19 17:51 Penicillins Allergy Hives Verified 10/17/19 17:51 codeine [Codeine] AdvReac HALLUCINATIONS, Verified 10/17/19 17:51 DROWSY morphine AdvReac HALLUCINATI Verified 10/17/19 17:51 ONS Home Medications: Ambulatory Orders Albuterol Sulfate [Proair Hfa -] 1 inh PO ASDIR PRN 90 Days hfa.aer.ad 05/17/15 Budesonide/Formeterol Fumarate [SYMBICORT 80/4.5mcg -] 2 inh IH BID 90 Days inhaler 05/17/15 Cholecalciferol (Vitamin D3) [Vitamin D3] 1,000 unit PO DAILY 01/18/17 Duloxetine HCl [Cymbalta] 30 mg PO AM 01/18/17 Gabapentin 400 mg PO TID PRN 01/18/17 Nitroglycerin [Nitrostat] 0.4 mg SL PRN 01/18/17 Pravastatin Sodium [Pravachol] 40 mg PO HS 01/18/17 Albuterol 2.5/Ipratropium 0.5 [Duoneb -] 1 neb IH QID 7 Days #30 vial.neb. 03/03/19 Albuterol 0.083% Nebulizer Sil [Ventolin 0.083% Nebulizer Soln -] 1 neb NEB Q4H PRN #30 vial 03/04/19 Cyanocobalamin [Vitamin B12 -] 1,000 mcg PO DAILY 08/23/19 Fluticasone Prop 0.05% Nasal [Flonase -] 1 - 2 spray NS BID 08/23/19 Isosorbide Mononitrate [Isosorbide Mononitrate ER] 60 mg PO DAILY 08/23/19 Lisinopril [Prinivil] 20 mg PO DAILY 08/23/19 Metoprolol Succinate [Toprol XL -] 25 mg PO AM 08/23/19 Pramipexole Di-HCl [Pramipexole ER] 0.5 mg PO TID 08/23/19 Torsemide 20 mg PO AM 08/23/19 Allopurinol [Zyloprim -] 100 mg PO DAILY #30 tablet 08/31/19 Amlodipine Besylate [Norvasc -] 5 mg PO DAILY #30 tablet 08/31/19 metFORMIN HCL [Glucophage -] 500 mg PO BID@0700,1630 tablet 08/31/19 predniSONE [Deltasone -] 5 mg PO DAILY #20 tablet 08/31/19 Anemia: Yes Asthma: Yes (inhalers at home) Cancer: No Cardiac Disorders: Yes (ANGINA, STENTS X2) CVA: No COPD: Yes CHF: Yes Dementia: No Diabetes: Yes GI Disorders: Yes (ACID REFLUX) Disorders: No HTN: Yes Hypercholesterolemia: Yes Liver Disease: No Seizures: No Thyroid Disease: No Lung CA: (COPD) - Surgical History Abdominal Surgery: No Appendectomy: No Cardiac Surgery: Yes (DOUBLE AND TRIPLE BYPASS) Cholecystectomy: No Lung Surgery: No Neurologic Surgery: No Orthopedic Surgery: Yes (rt rotator cuff repair, rt knee surgery) - Immunization History Immunization Up to Date: No - Psycho-Social/Smoking History Smoking Status: Yes Smoking History: Unknown if ever smoked Have you smoked in the past 12 months: No Number of Cigarettes Smoked Daily: 0 If you are a former smoker, when did you quit?: about 30 years ago Review of Systems - Review of Systems Able to Perform ROS?: No *Physical Exam - Vital Signs Last Vital Signs Temp Pulse Resp BP Pulse Ox 97.6 F 94 H 20 147/59 L 99 10/17/19 17:51 10/17/19 17:51 10/17/19 17:51 10/17/19 17:51 10/17/19 17:51 - Physical Exam General Appearance: Yes: Other (trached, not responsive to verbal stimuli. NAD. ) HEENT: positive: NARESH. negative: Pale Conjunctivae, Scleral Icterus (R), Scleral Icterus (L) Neck: positive: Trachea midline, Supple, Other (tracheostomy) Respiratory/Chest: positive: Rhonchi, Other (trach with ventilator). negative: Respiratory Distress, Crackles, Rales, Wheezing Cardiovascular: positive: Regular Rhythm, Regular Rate, S1, S2. negative: Edema, JVD, Murmur Vascular Pulses: Dorsalis-Pedis (R): 2+, Doralis-Pedis (L): 2+ Gastrointestinal/Abdominal: positive: Soft, Other (G tube). negative: Rebound, Tenderness Rectal Exam: positive: other (rectal tube) Musculoskeletal: negative: CVA Tenderness Extremity: positive: Pedal Edema Integumentary: positive: Normal Color, Dry, Warm. negative: Petechiae, Rash Neurologic: positive: Respond to painful stimul. negative: personnel arbitrator II-XII NML intact (baseline), Fully Oriented (baseline), Alert (baseline) ED Treatment Course - LABORATORY CBC & Chemistry Diagram: 10/18/19 08:05 10/18/19 06:00 - RADIOLOGY Radiology Studies Ordered: Category Date Time Status CHEST X-RAY PORTABLE* [RAD] Stat Radiology 10/17/19 18:01 Completed Medical Decision Making - Medical Decision Making 10/18/19 18:43 69y F with PMH Of CHF, COPD, IDDM, HTN, HLD, CVA s/p thrombectomy 09/2019 at [facility], Respiratory failure s/p tracheostomy, PEG tube presenting for elevated glucose and elevated bUN per nh. unable to obtain further information from patient. history obtained by NH. vitals wnl pe shows pt has trach, rhonchorus breath sounds, pedal edema. g tube, rectal tube. pt is afebrile ddx includes dka, pna, uti, renal failure, dehydration. will obtain sepsis orderset with dka workup. cxr shows probable pna. pending sign out to night team. 10/18/19 18:43 Discharge - Discharge Information Problems reviewed: Yes Clinical Impression/Diagnosis: High glucose PNA (pneumonia) Qualifiers: Pneumonia type: due to unspecified organism Laterality: unspecified laterality Lung location: unspecified part of lung Qualified Code(s): J18.9 - Pneumonia, u nspecified organism Condition: Stable - Follow up/Referral - Patient Discharge Instructions - Post Discharge Activity
--- NOTE | 2019-10-17 19:06 | PDOC ---
Attending Attestation - Resident Resident Name: Opal Quiroga - ED Attending Attestation I have performed the following: I have examined & evaluated the patient, The case was reviewed & discussed with the resident, I agree w/resident's findings & plan - HPI HPI: 10/17/19 19:05 69y F with PMH of CHF, COPD, IDDM, HTN, HLD, CVA s/p thrombectomy 09/2019 at [facility], Respiratory failure s/p tracheostomy, PEG tube sent from [facility] for hyperglycemia and "dehydration". Per NH, blood sugar was "high" and BUN 111. Humulin 15u Q8h, humalog ss got 10u today. Pt is slow to respond and keeps eyes closed at baseline. Unable to obtain history from patient. per lab results sent from [place], glucose in the 400s, BUN 111, Cr 1.6. pt has had normal kidney function in the past. 10/17/19 19:42 - Physicial Exam PE: 10/17/19 19:05 Agree with the resident's HPI and PE as documented in the electronic medical record. NAD, obese. right hemicrani. nonverbal. trach in place. EOMI, PERRL, nl conjunctiva, anicteric; neck supple. lungs with rhonchi. abdomen soft obese nontender. no rebound, guarding. Back nontender. +peripheral edema. normal color for ethnicity, WWP. G tube in place 10/19/19 11:47 10/19/19 11:47 10/19/19 11:48 10/19/19 11:49 - Medical Decision Making 10/17/19 19:42 Vital Signs Temp Pulse Resp BP Pulse Ox 97.6 F 94 H 20 147/59 L 99 10/17/19 17:51 10/17/19 17:51 10/17/19 17:51 10/17/19 17:51 10/17/19 17:51 a/p: 69 YOF PMH Of CHF, COPD, IDDM, HTN, HLD, CVA s/p thrombectomy 09/2019 at [facility], Respiratory failure s/p tracheostomy, PEG tube presenting for elevated glucose and elevated bUN per [place]. unable to obtain further information from patient. history obtained by [place]. vitals reviewed, wnl. no fever appears dehydrated lungs with rhonchi, s/p trach. ddx includes dka, pna, uti, renal failure, dehydration. cxr shows probable pna. abx yasmin hydration admit Discharge - Discharge Information Problems reviewed: Yes Clinical Impression/Diagnosis: High glucose PNA (pneumonia) Qualifiers: Pneumonia type: due to unspecified organism Laterality: unspecified laterality Lung location: unspecified part of lung Qualified Code(s): J18.9 - Pneumonia, unspecified organism Condition: Stable - Admission Yes - Follow up/Referral - Patient Discharge Instructions - Post Discharge Activity
[2019-10-17 19:31] LABS: BASO % 0.1 % (0-2.0); EOS % 0.5 % (0-4.5); HEMATOCRIT 30.6 % (32.4-45.2); HEMOGLOBIN 9.2 GM/dL (10.7-15.3); LYMPH % 11.5 % (8-40); MCHC 30.2 g/dl (32.0-36.0); MEAN CELL VOLUME 72.8 fl (80-96); MEAN PLT VOLUME 8.8 fl (7.5-11.1); MONO % 8.2 % (3.8-10.2); NEUT % 79.7 % (42.8-82.8); PLATELET COUNT 483 K/MM3 (134-434); RDW 18.2 % (11.6-15.6)
[2019-10-17 19:31] LABS: VENOUS BASE EXCESS 3.9 mmol/L (-2-2); VENOUS O2 SATURATION 75.9 % (70-80); VENOUS PCO2 45.2 mmHg (38-52); VENOUS PH 7.425 (7.310-7.410)
[2019-10-17 19:41] LABS: INR 1.05 (0.83-1.09); PROTHROMBIN TIME (PATIENT) 12.4 SEC (9.7-13.0)
[2019-10-17 19:43] LABS: ACTIVATED PTT 24.5 SECONDS (25.2-36.5)
[2019-10-17 19:53] LABS: ALBUMIN 1.7 g/dl (3.4-5.0); ALK PHOS 92 U/L (45-117); ANION GAP 11 MMOL/L (8-16); BILIRUBIN,TOTAL 0.4 mg/dL (0.2-1); CALCIUM 8.8 mg/dL (8.5-10.1); CHLORIDE 112 mmol/L (98-107); CO2 27 mmol/L (21-32); CREATININE 1.4 mg/dL (0.55-1.3); POTASSIUM 3.9 mmol/L (3.5-5.1); SGOT/AST 66 U/L (15-37); SGPT/ALT 60 U/L (13-61); SODIUM 150 mmol/L (136-145); TOT PROT 7.2 g/dl (6.4-8.2)
[2019-10-17 20:00] LABS: BLOOD UREA NITROGEN 113.6 mg/dL (7-18); GLUCOSE,RANDOM 431 mg/dL (74-106)
[2019-10-17 20:08] LABS: ANISOCYTOSIS 2+; MACROCYTOSIS 2+; OVALOCYTE 1+
[2019-10-17 20:47] LABS: EPI CELLS 8 /uL (0-25.1); HYALINE CASTS 13 /uL (0-3.1); URINE APPEARANCE CLOUDY; URINE BACTERIA 177 /uL (0-1359); URINE BILIRUBIN NEGATIVE (NEGATIVE); URINE COLOR YELLOW; URINE GLUCOSE (UA) 1+ (NEGATIVE); URINE KETONE NEGATIVE (NEGATIVE); URINE LEUK ESTERASE 2+ (NEGATIVE); URINE NITRITE NEGATIVE (NEGATIVE); URINE PROTEIN TRACE (NEGATIVE); URINE RBC 10 /uL (0-23.9); URINE UROBILINOGEN 0.2 mg/dL (0.2-1.0); URINE WBC 295 /uL (0-25.8)
--- NOTE | 2019-10-17 21:19 | HP ---
CHIEF COMPLAINT: presents from [facility] with elevated sugar and kidney function tests at facility PCP:previously was seen by Dr. Christiansen, now at [facility] HISTORY OF PRESENT ILLNESS: 69 year old female with past medical history of diastolic congestive heart failure, coronary artery disease status post CABG x2, moderate-severe aortic regurgitation, moderate pulmonary HTN, ?hyperparathyroidism, obesity,COPD, IDDM, HTN, HLD, CVA s/p thrombectomy 09/2019 at [facility] with respiratory failure s/p tracheostomy and PEG tube who was sent from [facility] for hyperglycemia and "dehydration". Per [place], blood sugar was in the 400's and BUN 111/creatinine 1.6. and had a normal kidney function in the past. At baseline patient is slow to respond and keeps her eyes closed . Unable to obtain history from patient. ER course notable for Community Acquired PNA, UTI , Hypernatremia/VESTA secondary to Dehydration and Hyperglycemia. 1. Leukocytosis- WBC 17, lactic acid 2.7 CXR with infiltrate UA cloudy with 2+ leukoesterase, negative nitrite, received a dose of IV levofloxacin 750mg once and 1 liter of Lactated Ringers. 2. Acute Kidney Injury/hypernatremia - sodium 150 BUN 113.6, creatinine 1.4 3. Hyperglycemia - glucose 431, repeat blood sugar 412- got Novolin 12 Units, was taking prednisone Recent Travel: no PAST MEDICAL HISTORY: diastolic congestive heart failure COPD NIDDM HTN HLD CVA s/p thrombectomy 09/2019 at [facility] with respiratory failure s/p tracheostomy and PEG tube placement PAST SURGICAL HISTORY: CVA s/p thrombectomy Social History: Smoking:unable to obtain Alcohol:unable to obtain Drugs: unable to obtain Family History; noncontributory Allergies aspirin Allergy (Verified 10/17/19 17:51) Penicillins Allergy (Verified 10/17/19 17:51) Hives codeine [Codeine] Adverse Reaction (Verified 10/17/19 17:51) HALLUCINATIONS, DROWSY morphine Adverse Reaction (Verified 10/17/19 17:51) HALLUCINATIONS HOME MEDICATIONS: Home Medications Medication Instructions Recorded Albuterol Sulfate [Proair Hfa -] 1 inh PO ASDIR PRN 90 Days 05/17/15 hfa.aer.ad Budesonide/Formeterol Fumarate 2 inh IH BID 90 Days inhaler 02/13/16 [SYMBICORT 80/4.5mcg -] Cholecalciferol (Vitamin D3) 1,000 unit PO DAILY 01/18/17 [Vitamin D3] Duloxetine HCl [Cymbalta] 30 mg PO AM 01/18/17 Gabapentin 400 mg PO TID PRN 01/18/17 Nitroglycerin [Nitrostat] 0.4 mg SL PRN 01/18/17 Pravastatin Sodium [Pravachol] 40 mg PO HS 01/18/17 Albuterol 2.5/Ipratropium 0.5 1 neb IH QID 7 Days #30 vial.neb. 03/03/19 [Duoneb -] Albuterol 0.083% Nebulizer Sil 1 neb NEB Q4H PRN #30 vial 03/04/19 [Ventolin 0.083% Nebulizer Soln -] Cyanocobalamin [Vitamin B12 -] 1,000 mcg PO DAILY 08/23/19 Fluticasone Prop 0.05% Nasal 1 - 2 spray NS BID 08/23/19 [Flonase -] Isosorbide Mononitrate [Isosorbide 60 mg PO DAILY 08/23/19 Mononitrate ER] Lisinopril [Prinivil] 20 mg PO DAILY 08/23/19 Metoprolol Succinate [Toprol XL -] 25 mg PO AM 08/23/19 Pramipexole Di-HCl [Pramipexole ER] 0.5 mg PO TID 08/23/19 Torsemide 20 mg PO AM 08/23/19 Allopurinol [Zyloprim -] 100 mg PO DAILY #30 tablet 08/31/19 Amlodipine Besylate [Norvasc -] 5 mg PO DAILY #30 tablet 08/31/19 metFORMIN HCL [Glucophage -] 500 mg PO BID@0700,1630 tablet 08/31/19 predniSONE [Deltasone -] 5 mg PO DAILY #20 tablet 08/31/19 REVIEW OF SYSTEMS UNABLE TO OBTAIN ROS DUE TO PATIENT MENTAL STATUS, NO FAMILY AVAILABLE AT BEDSIDE PHYSICAL EXAMINATION Vital Signs - 24 hr 10/17/19 10/17/19 10/17/19 17:13 17:51 18:55 Temperature 97.6 F Pulse Rate 94 H Pulse Rate [ 96 H Apical] Respiratory 20 20 20 Rate Blood Pressure 147/59 L Blood Pressure 147/59 L [Right Arm] O2 Sat by Pulse 99 99 Oximetry (%) 10/17/19 10/17/19 10/17/19 20:00 20:30 20:35 Temperature Pulse Rate Pulse Rate [ 96 H 95 H Apical] Respiratory 18 20 Rate Blood Pressure Blood Pressure 159/68 148/54 L [Right Arm] O2 Sat by Pulse 99 100 98 Oximetry (%) General no acute distress Neuro somnolent eyes closed does not follow any commands on my assessment Vital signs reviewed afebrile, HR 90's SBP 140-160, oxygen saturation 100% Neck no JVD Lungs diminished BS no use of accessory muscles nonlabored breathing effort Heart s1s2 rate regular heart rate 90's Abdomen soft nontender tesfaye and fecal bag in place from [place] Extremities no pitting edema no cyanosis warm to touch Mood calm Laboratory Results - last 24 hr 10/17/19 10/17/19 10/17/19 18:40 18:40 18:47 WBC 17.0 H RBC 4.20 Hgb 9.2 L Hct 30.6 L D MCV 72.8 L MCH 22.0 L MCHC 30.2 L RDW 18.2 H Plt Count 483 H D MPV 8.8 Absolute Neuts (auto) 13.5 H Neutrophils % 79.7 Lymphocytes % 11.5 D Monocytes % 8.2 Eosinophils % 0.5 Basophils % 0.1 Nucleated RBC % 0 Hypochromia 2+ Anisocytosis 2+ Macrocytosis 2+ Ovalocytes 1+ PT with INR INR PTT (Actin FS) VBG pH 7.425 H POC VBG pCO2 45.2 POC VBG pO2 40.0 VBG HCO3 29.0 VBG O2 Sat (Brice) 75.9 VBG Base Excess 3.9 H Sodium Potassium Chloride Carbon Dioxide Anion Gap BUN Creatinine Est GFR (CKD-EPI)AfAm Est GFR (CKD-EPI)NonAf Random Glucose Lactic Acid 2.7 H* Calcium Total Bilirubin AST ALT Alkaline Phosphatase Troponin I Total Protein Albumin Beta-Hydroxybutyrate Urine Color Urine Appearance Urine pH Ur Specific [place] Urine Protein Urine Glucose (UA) Urine Ketones Urine Blood Urine Nitrite Urine Bilirubin Urine Urobilinogen Ur Leukocyte Esterase Urine WBC (Auto) Urine RBC (Auto) Urine Casts (Auto) U Epithel Cells (Auto) Urine Bacteria (Auto) 10/17/19 10/17/19 10/17/19 18:47 18:47 20:36 WBC RBC Hgb Hct MCV MCH MCHC RDW Plt Count MPV Absolute Neuts (auto) Neutrophils % Lymphocytes % Monocytes % Eosinophils % Basophils % Nucleated RBC % Hypochromia Anisocytosis Macrocytosis Ovalocytes PT with INR 12.40 INR 1.05 PTT (Actin FS) 24.5 L VBG pH POC VBG pCO2 POC VBG pO2 VBG HCO3 VBG O2 Sat (Brice) VBG Base Excess Sodium 150 H Potassium 3.9 Chloride 112 H Carbon Dioxide 27 Anion Gap 11 BUN 113.6 H* Creatinine 1.4 H Est GFR (CKD-EPI)AfAm 43.70 Est GFR (CKD-EPI)NonAf 37.71 Random Glucose 431 H* Lactic Acid Calcium 8.8 Total Bilirubin 0.4 AST 66 H ALT 60 Alkaline Phosphatase 92 Troponin I < 0.02 Total Protein 7.2 Albumin 1.7 L Beta-Hydroxybutyrate 1.9 Urine Color Yellow Urine Appearance Cloudy Urine pH 5.0 Ur Specific [place] 1.019 Urine Protein Trace Urine Glucose (UA) 1+ H Urine Ketones Negative Urine Blood 1+ H Urine Nitrite Negative Urine Bilirubin Negative Urine Urobilinogen 0.2 Ur Leukocyte Esterase 2+ H Urine WBC (Auto) 295 Urine RBC (Auto) 10 Urine Casts (Auto) 13 U Epithel Cells (Auto) 8 Urine Bacteria (Auto) 177 ASSESSMENT/PLAN: In summary Mrs. Larson is a 69 year old female with past medical history of diastolic congestive heart failure, coronary artery disease status post CABG x2, moderate-severe aortic regurgitation, moderate pulmonary HTN, ?hyperparathyroidism, obesity,COPD, IDDM, HTN, HLD, CVA s/p thrombectomy 09/2019 at [facility] with respiratory failure s/p tracheostomy and PEG tube who was sent from [facility] for hyperglycemia (was taking prednisone) and abnormal kidney function tests. She was found to have leukocytosis and an elevated lactic acid level, CXR demonstrated infiltrate and UA was abnormal consistent with a UTI.She received a dosage of IV levofloxacin and 1 liter of lactated ringers . Sheis being admitted for further medical management for PNA/UTI, hyperglycemia ,acute kidney injury /hypernatremia secondary to dehydration. 1. Community Acquired PNA/ Rule Out COVID(high risk) currently afebrile , maintained on trach-vent(ac mode, TV 400, PEEP5, FIo2 40%)o2 sat maintained at 100% received a dose of IV levofloxacin 750mg once continue with IV levofloxacin 750mg daily and added IV cefepime 1gm q8hr ID consulted - Dr. Bai consulted follow up on COVID nasal swab results(sent 10/16) maintain strict isolation/droplet precautions pending repeat lactic acid level overnight 2. UTI currently afebrile, + leukocytosis and elevated lactic acid , has tesfaye placed from NH replace tesfaye urine and blood cultures are pending for sensitivity continue with IV levofloxacin 750mg daily and IV cefepime 1 gm q8hr ID consulted- Dr. Bai for further recommendations 3.Hypernatremia/ Acute Kidney Injury secondary to Dehydration sodium 150 BUN 113.6, creatinine 1.4(previously with normal kidney function tests) c/w IVF 1/2 NS @ 100cc/hr repeat BMP in am Renal consulted- Dr. Shay 4. Hyperglycemia /hx NIDDM was taking prednisone, glucose in the 400's, anion gap 11 BGM q6hr(has PEG- tube feeding to be started once evaluated by registered client associate) insulin as per sliding scale metformin on hold check hgb A1c c/w with statin therapy 5. CVA s/p thrombectomy 09/2019 c/w statin therapy not on asa due to documented allergy likely on prednisone in this setting neuro check q6hr 6. HTN SBP 140-160 UA w/ trace proteinuria c/w amlodipine, imdur, metoprolol succinate, and lisinopril 7. HLD ast 66, alt 60 c/w statin therapy with close monitoring of LFT's 8. CAD/ Hx CABG troponin normal c/w statin , no asa due to allergy c/w metoprolol succinate, lisinopril, imdur and amlodipine 9. Moderate to Severe Aortic Regurgitation appears euvolemic will hold torsemide as getting IVF 10. 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 - New Patient This patient is new to me today: Yes Date on this admission: 10/18/19 - Critical Care Critical Care patient: No
[2019-10-17] MEDS ORDERED: LACTATED RINGERS SOLUTION 1000 ML INFUS.BAG IV ONE (21:22)
[2019-10-17] MEDS ORDERED: INSULIN (NOVOLOG) ASPART 100 UNITS/ML 10ML VIAL SQ ONE (22:12)
[2019-10-17] MEDS ORDERED: SODIUM CHLORIDE 1,000 ML IV SCH (22:15)
[2019-10-17] MEDS ORDERED: GABAPENTIN 400 MG CAPSULE PO PRN (22:20)
[2019-10-17] MEDS ORDERED: AZITHROMYCIN IVPB 500 MG in DEXTROSE 5%-WATER - 250 ML IVPB SCH (23:00)
[2019-10-18] MEDS ORDERED: INSULIN (NOVOLOG) ASPART 100 UNITS/ML 10ML VIAL SQ ONE (00:47)
[2019-10-18] MEDS ORDERED: GABAPENTIN 400 MG CAPSULE PEG PRN (01:32)
[2019-10-18] MEDS ORDERED: CEFEPIME HCL/D5W 1 GM/50 ML BAG IVPB SCH (02:00)
[2019-10-18] MEDS ORDERED: CEFEPIME HCL 1 GM VIAL (RESTRICTED TO ID) ONE ×3 (02:09→17:24)
[2019-10-18] MEDS ORDERED: DEXTROSE 5%-WATER - 50 ML IVPB ONE ×3 (02:10→17:25)
[2019-10-18] MEDS: CEFEPIME 1 GM in DEXTROSE 5%-WATER - 50 ML IVPB SCH ×3 (02:11→17:30)
[2019-10-18] MEDS: SODIUM CHLORIDE 0.45% 1,000 ML IV SCH ×2 (02:11→13:26)
[2019-10-18] MEDS ORDERED: INSULIN SLIDING SCALE (NOVOLOG) 1 VIAL SQ SCH ×2 (07:00→13:00)
[2019-10-18] MEDS ORDERED: TORSEMIDE 20 MG TABLET (FP) PO SCH (07:00)
[2019-10-18] MEDS ORDERED: metoPROLOL SUCCINATE 25 MG TAB.SR.24H (FP) NR SCH (07:00)
[2019-10-18] MEDS ORDERED: DULoxetine HCL 30 MG CAPSULE.DR PO SCH (07:00)
--- NOTE | 2019-10-18 07:43 | CONSULT ---
Consult Consult Specialty:: Nephrology Reason for Consultation:: VESTA - History of Present Illness Chief Complaint: sent in for hyperglycemia History of Present Illness: Pt is a 69 year old female with pmhx of chf, cad, cabg, pulm htn, hyperparathyroid, copd, obesity, copd, DM, HTN, HLD and CVA with trache and PEG who was sent in for hyperglycemia and dehydration. I was called to evaluate her for VESTA. She is unable to give history. She is on a vent. She was found to be hyperglycemic. She does not have history of CKD. Based on chart, pt can respond at baseline but keeps her eyes closed. - History Source History Provided By: Medical Record 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 History Cardio/Vascular: Yes: CAD, HTN, Hyperlipdemia Pulmonary: Yes: COPD Renal/: Yes: Renal Inusuff Infectious Disease: Yes: Other (oral abscess) Psych: Yes: Anxiety, Depression Musculoskeletal: Yes: Osteoarthritis Rheumatology: Yes: Gout Endocrine: Yes: Hyperparathyroidism - Past Surgical History Past Surgical History: Yes: CABG - Alcohol/Substance Use Hx Alcohol Use: No History of Substance Use: reports: None - Smoking History Smoking history: Unknown if ever smoked Have you smoked in the past 12 months: No Aproximately how many cigarettes per day: 0 If you are a former smoker, when did you quit?: about 30 years ago - Social History ADL: Independent History of Recent Travel: No Home Medications - Allergies Allergies/Adverse Reactions: Allergies Allergy/AdvReac Type Severity Reaction Status Date / Time aspirin Allergy Verified 10/17/19 17:51 Penicillins Allergy Hives Verified 10/17/19 17:51 codeine [Codeine] AdvReac HALLUCINATIONS, Verified 10/17/19 17:51 DROWSY morphine AdvReac HALLUCINATI Verified 10/17/19 17:51 ONS - Home Medications Home Medications: Ambulatory Orders Albuterol Sulfate [Proair Hfa -] 1 inh PO ASDIR PRN 90 Days hfa.aer.ad 05/17/15 Budesonide/Formeterol Fumarate [SYMBICORT 80/4.5mcg -] 2 inh IH BID 90 Days inhaler 05/17/15 Cholecalciferol (Vitamin D3) [Vitamin D3] 1,000 unit PO DAILY 01/18/17 Duloxetine HCl [Cymbalta] 30 mg PO AM 01/18/17 Gabapentin 400 mg PO TID PRN 01/18/17 Nitroglycerin [Nitrostat] 0.4 mg SL PRN 01/18/17 Pravastatin Sodium [Pravachol] 40 mg PO HS 01/18/17 Albuterol 2.5/Ipratropium 0.5 [Duoneb -] 1 neb IH QID 7 Days #30 vial.neb. 03/03/19 Albuterol 0.083% Nebulizer Sil [Ventolin 0.083% Nebulizer Soln -] 1 neb NEB Q4H PRN #30 vial 03/04/19 Cyanocobalamin [Vitamin B12 -] 1,000 mcg PO DAILY 08/23/19 Fluticasone Prop 0.05% Nasal [Flonase -] 1 - 2 spray NS BID 08/23/19 Isosorbide Mononitrate [Isosorbide Mononitrate ER] 60 mg PO DAILY 08/23/19 Lisinopril [Prinivil] 20 mg PO DAILY 08/23/19 Metoprolol Succinate [Toprol XL -] 25 mg PO AM 08/23/19 Pramipexole Di-HCl [Pramipexole ER] 0.5 mg PO TID 08/23/19 Torsemide 20 mg PO AM 08/23/19 Allopurinol [Zyloprim -] 100 mg PO DAILY #30 tablet 08/31/19 Amlodipine Besylate [Norvasc -] 5 mg PO DAILY #30 tablet 08/31/19 metFORMIN HCL [Glucophage -] 500 mg PO BID@0700,1630 tablet 08/31/19 predniSONE [Deltasone -] 5 mg PO DAILY #20 tablet 08/31/19 Family Medical History Family History: Unable to Obtain Review of Systems Unable to obtain ROS, reason: not verbal Physical Exam Vital Signs: Vital Signs Temperature 98.3 F 10/18/19 06:00 Pulse Rate 83 10/18/19 06:00 Respiratory Rate 15 10/18/19 06:00 Blood Pressure 108/62 10/18/19 06:00 O2 Sat by Pulse Oximetry (%) 100 10/18/19 06:00 Constitutional: Yes: Calm Neck: Yes: Other (trache) Cardiovascular: Yes: S1, S2 Respiratory: Yes: Mechanically Ventilated Gastrointestinal: Yes: Soft, Other (peg) Renal/: Yes: Robbins Present Musculoskeletal: Yes: Muscle Weakness Edema: No Neurological: Yes: Lethargy, Pre-Existing Deficit Labs: CBC, BMP 10/17/19 18:47 10/17/19 18:47 Laboratory Tests 10/17/19 10/17/19 10/18/19 18:47 18:47 06:00 Hgb 9.2 L Sodium 150 H 155 H BUN 113.6 H* 93.3 H Creatinine 1.4 H 0.9 10/18/19 08:05 Hgb 8.4 L Sodium BUN Creatinine Imaging - Results Chest X-ray: Report Reviewed Assessment/Plan Current Medications Generic Name Dose Route Start Last Admin Trade Name Freq PRN Reason Stop Dose Admin Albuterol/Ipratropium 1 amp 10/18/19 08:00 Duoneb - NEB RQID MARIE Allopurinol 100 mg 10/18/19 10:00 Zyloprim - PEG DAILY MARIE Amlodipine Besylate 5 mg 10/18/19 10:00 Norvasc - PEG DAILY [facility] Atorvastatin Calcium 40 mg 10/18/19 22:00 Lipitor - PEG HS MARIE Cyanocobalamin 1,000 mcg 10/18/19 10:00 Vitamin B12 - PO DAILY [facility] Duloxetine HCl 30 mg 10/18/19 07:00 10/18/19 06:19 Cymbalta - PO Not Given AM [facility] Gabapentin 400 mg 10/18/19 01:32 Neurontin - PEG Q8H PRN PAIN LEVEL 6-10 Levofloxacin 750 mg in 150 mls @ 100 mls/hr 10/18/19 10:00 Levaquin 750 Mg Premixed Ivpb - IVPB DAILY MARIE Protocol Cefepime HCl 1 gm in 50 mls @ 100 mls/hr 10/18/19 02:00 Maxipime 1 Gm Premix Ivpb IVPB Q8H-IV MARIE Protocol Cefepime HCl 1 gm/ Dextrose 50 mls @ 100 mls/hr 10/18/19 02:00 10/18/19 02:11 IVPB 10/18/19 18:29 100 mls/hr Q8H-IV MARIE Administration Protocol Sodium Chloride 1,000 mls @ 100 mls/hr 10/18/19 01:30 10/18/19 02:11 1/2 Normal Saline IV 100 mls/hr ASDIR MARIE Administration Insulin Aspart 1 vial 10/18/19 07:00 10/18/19 06:21 Novolog Vial Sliding Scale - SQ 6 units BIDAC [facility] Administration Protocol Isosorbide Mononitrate 60 mg 10/18/19 10:00 Imdur - PO DAILY [facility] Lisinopril 20 mg 10/18/19 10:00 Prinivil PEG DAILY [facility] Metoprolol Succinate 25 mg 10/18/19 07:00 10/18/19 06:20 Toprol Xl - NR Not Given AM [facility] Prednisone 5 mg 10/18/19 10:00 Deltasone - PEG DAILY [facility] Impression 1. VESTA 2. DM 3. hypernatremia 4. resp failure 5. cva 6. copd 7. 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
[2019-10-18 08:53] LABS: BASO % 0.1 % (0-2.0); EOS % 0.3 % (0-4.5); HEMATOCRIT 27.8 % (32.4-45.2); HEMOGLOBIN 8.4 GM/dL (10.7-15.3); LYMPH % 11.4 % (8-40); MCH 21.7 pg (25.7-33.7); MCHC 30.3 g/dl (32.0-36.0); MEAN CELL VOLUME 71.6 fl (80-96); MEAN PLT VOLUME 8.5 fl (7.5-11.1); MONO % 9.8 % (3.8-10.2); NEUT % 78.4 % (42.8-82.8); PLATELET COUNT 387 K/MM3 (134-434); RBC 3.89 M/mm3 (3.60-5.2); RDW 18.7 % (11.6-15.6); WHITE BLOOD COUNT 13.5 K/mm3 (4.0-10.0)
[2019-10-18 09:19] LABS: ANION GAP 9 MMOL/L (8-16); BLOOD UREA NITROGEN 93.3 mg/dL (7-18); CALCIUM 8.9 mg/dL (8.5-10.1); CHLORIDE 117 mmol/L (98-107); CO2 29 mmol/L (21-32); CREATININE 0.9 mg/dL (0.55-1.3); GLUCOSE,RANDOM 253 mg/dL (74-106); POTASSIUM 3.8 mmol/L (3.5-5.1); SODIUM 155 mmol/L (136-145)
[2019-10-18] MEDS ORDERED: GABAPENTIN 250 MG/5 ML ORAL SOLUTION, 470 ML BOTTLE PEG PRN (09:23)
[2019-10-18] MEDS: CYANOCOBALAMIN 1,000 MCG TABLET (FP) PO SCH (09:51)
[2019-10-18] MEDS: amLODIPine BESYLATE 5 MG TABLET (FP) PEG SCH (09:51)
[2019-10-18] MEDS: ALLOPURINOL 100 MG TABLET (FP) PEG SCH (09:51)
[2019-10-18] MEDS ORDERED: ISOSORBIDE MONONITRATE 60 MG TAB.SR.24H (FP) PO SCH ×2 (10:00)
[2019-10-18] MEDS ORDERED: predniSONE 5 MG TABLET (UD) PO SCH (10:00)
[2019-10-18] MEDS ORDERED: LISINOPRIL 20 MG TABLET (FP) PEG SCH (10:00)
[2019-10-18] MEDS ORDERED: CEFTRIAXONE 1 GM in DEXTROSE 5%-WATER - 50 ML IVPB SCH (10:00)
[2019-10-18] MEDS: predniSONE 5 MG TABLET (UD) PEG SCH (11:52)
--- NOTE | 2019-10-18 11:53 | EKG ---
Test Reason : Blood Pressure : / mmHG Vent. Rate : 093 BPM Atrial Rate : 093 BPM P-R Int : 144 ms QRS Dur : 104 ms QT Int : 336 ms P-R-T Axes : 054 057 -78 degrees QTc Int : 417 ms NORMAL SINUS RHYTHM POSSIBLE ANTERIOR INFARCT , AGE UNDETERMINED T WAVE ABNORMALITY, CONSIDER INFERIOR ISCHEMIA ABNORMAL ECG WHEN COMPARED WITH ECG OF 03-SEP-2019 03:46, T WAVE INVERSION MORE EVIDENT IN INFERIOR LEADS T WAVE INVERSION NOW EVIDENT IN LATERAL LEADS Confirmed by ASA SANTANA MD ([id number]) on 10/18/2019 11:53:03 AM Referred By: Confirmed By:ASA SANTANA MD
[2019-10-18] MEDS ORDERED: LISINOPRIL 10 MG TABLET (FP) PEG SCH (12:26)
[2019-10-18] MEDS ORDERED: ERGOCALCIFEROL 8,000 UNITS/ML DROPSBTL GT SCH (12:30)
--- NOTE | 2019-10-18 12:32 | PN ---
Progress Note, Physician Chief Complaint: Hyperglycemia Dehydration VESTA History of Present Illness: NAD obtunded Mech vented - Current Medication List Current Medications: Active Medications Acetaminophen (Tylenol Oral Solution -) 650 mg GT Q6H PRN PRN Reason: PAIN Albuterol/Ipratropium (Duoneb -) 1 amp NEB RQID [facility] Allopurinol (Zyloprim -) 100 mg PEG DAILY [facility] Last Admin: 10/18/19 09:51 Dose: 100 mg Documented by: Amlodipine Besylate (Norvasc -) 5 mg PEG DAILY [facility] Last Admin: 10/18/19 09:51 Dose: 5 mg Documented by: Ascorbic Acid (Vitamin C Oral Solution -) 500 mg GT DAILY [facility] Atorvastatin Calcium (Lipitor -) 80 mg PEG HS [facility] Collagenase (Santyl -) 1 applic TP DAILY [facility]; Protocol Cyanocobalamin (Vitamin B12 -) 1,000 mcg PO DAILY [facility] Last Admin: 10/18/19 09:51 Dose: 1,000 mcg Documented by: Ergocalciferol (Drisdol Oral Solution -) 1,000 units GT DAILY [facility] Ferrous Sulfate (Feosol) 300 mg GT DAILY [facility] Cefepime HCl 1 gm/ Dextrose 50 mls @ 100 mls/hr IVPB Q8H-IV MARIE; Protocol Last Admin: 10/18/19 09:51 Dose: 100 mls/hr Documented by: Sodium Chloride (1/2 Normal Saline) 1,000 mls @ 100 mls/hr IV ASDIR [facility] Last Admin: 10/18/19 02:11 Dose: 100 mls/hr Documented by: Insulin Aspart (Novolog Vial Sliding Scale -) 1 vial SQ BIDAC [facility]; Protocol Last Admin: 10/18/19 06:21 Dose: 6 units Documented by: Levetiracetam (Keppra Oral Solution -) 1,000 mg GT BID [facility] Lisinopril (Prinivil) 10 mg PEG DAILY [facility] Multivitamins/Minerals (Certavite-Antioxidant Liquid) 15 ml GT DAILY [facility] Nystatin (Nystop Powder -) 1 applic TP BID MARIE Prednisone (Deltasone -) 5 mg PEG DAILY [facility] Last Admin: 10/18/19 11:52 Dose: 5 mg Documented by: Valproate Sodium (Depakene -) 750 mg GT TID [facility] - Objective Vital Signs: Vital Signs Temperature 99.1 F 10/18/19 10:28 Pulse Rate 85 07/16/20 10:28 Respiratory Rate 22 H 10/18/19 12:19 Blood Pressure 134/67 10/18/19 10:28 O2 Sat by Pulse Oximetry (%) 99 10/18/19 12:19 Constitutional: Yes: Well Nourished, No Distress, Calm Cardiovascular: Yes: Regular Rate and Rhythm Respiratory: Yes: Mechanically Ventilated, Rhonchi (diffuse) Gastrointestinal: Yes: Normal Bowel Sounds, Soft Genitourinary: Yes: Robbins Present Extremities: Yes: Other (generalized atrophy) Edema: No Peripheral Pulses WNL: Yes Neurological: Yes: Other (obtunded) Labs: CBC, BMP 10/18/19 08:05 10/18/19 06:00 INR, PTT INR 1.05 (0.83-1.09) 10/17/19 18:47 Problem List - Problems (1) Metabolic encephalopathy Assessment/Plan: -BC+ -UC pending -ID consult -IV abx as per ID Problems reviewed: Yes Code(s): G93.41 - METABOLIC ENCEPHALOPATHY (2) VESTA (acute kidney injury) Assessment/Plan: -Nephrology consult -Gentle IVF -Monitor trend Problems reviewed: Yes Code(s): N17.9 - ACUTE KIDNEY FAILURE, UNSPECIFIED (3) Acute hypercapnic respiratory failure Assessment/Plan: -Pulmonary consult -Mech vent -Not a candidate for weaning at this time Problems reviewed: Yes Code(s): J96.02 - ACUTE RESPIRATORY FAILURE WITH HYPERCAPNIA (4) Diabetes Assessment/Plan: -BGM Q6H -Check A1c -ISS -Levemir 10 U BID -Endocrine consult Problems reviewed: Yes Code(s): E11.9 - TYPE 2 DIABETES MELLITUS WITHOUT COMPLICATIONS (5) Bacteremia Assessment/Plan: -ID consult -Afebrile -Monitor labs -IV abx -Check UC as well Problems reviewed: Yes Code(s): R78.81 - BACTEREMIA (6) Pneumonia Assessment/Plan: -CXR LLL infiltrate -ID consult -Pulmonary consult -COVID 19 pending Problems reviewed: Yes Code(s): J18.9 - PNEUMONIA, UNSPECIFIED ORGANISM Qualifiers: Pneumonia type: due to unspecified organism Laterality: unspecified laterality Lung location: unspecified part of lung Qualified Code(s): J18.9 - Pneumonia, unspecified organism Assessment/Plan See problem list
[2019-10-18] MEDS ORDERED: INSULIN (LEVEMIR) 100 UNITS/ML UNITS SQ SCH (12:45)
[2019-10-18 13:16] LABS: IRON SERUM 13 ug/dL (50-175); TOTAL IRON BINDING CAPACITY 145 ug/dL (250-450)
[2019-10-18] MEDS: levETIRAcetam 500 MG/5 ML ORAL SOLUTION (UNIT-DOSE CUPS) GT SCH ×2 (13:22→22:38)
[2019-10-18] MEDS: FERROUS SO4 300 MG/5 ML ORAL SOLN UNIT DOSE CUPS GT SCH (13:22)
[2019-10-18] MEDS: VALPROATE SODIUM 250 MG/5 ML UNIT DOSE CUP GT SCH ×2 (13:22→22:39)
[2019-10-18] MEDS: MULTIVIT-MINERALS ORAL LIQUID GT SCH (13:23)
[2019-10-18] MEDS: ASCORBIC ACID 500 MG/5 ML UNIT DOSE CUP GT SCH (13:23)
[2019-10-18] MEDS: NYSTATIN POWDER 100,000 UNITS/GM - 15 GM TOPICAL POWDER TP SCH ×2 (13:23→22:39)
[2019-10-18] MEDS: COLLAGENASE CLOSTRIDIUM HIST. 30 GRAMS TUBE TP SCH (13:25)
[2019-10-18 16:27] LABS: EPI CELLS >36 /uL (0-25.1); HYALINE CASTS 21 /uL (0-3.1); URINE APPEARANCE CLOUDY; URINE BACTERIA 9 /uL (0-1359); URINE BILIRUBIN NEGATIVE (NEGATIVE); URINE COLOR YELLOW; URINE GLUCOSE (UA) NEGATIVE (NEGATIVE); URINE KETONE NEGATIVE (NEGATIVE); URINE LEUK ESTERASE 1+ (NEGATIVE); URINE NITRITE NEGATIVE (NEGATIVE); URINE PROTEIN 1+ (NEGATIVE); URINE RBC 196 /uL (0-23.9); URINE UROBILINOGEN 0.2 mg/dL (0.2-1.0); URINE WBC 24 /uL (0-25.8)
[2019-10-18] MEDS: INSULIN SLIDING SCALE (NOVOLOG) 1 VIAL SQ SCH ×2 (17:30→23:09)
--- NOTE | 2019-10-18 17:52 | CON.ID ---
Consult - History of Present Illness History of Present Illness: 69 y.o. female with PMH of CVA s/p thrombectomy (09/08/19) at [facility], respiratory failure s/p trach/peg, CAD, CABGx2, IDDM, COPD, diastolic HF, HTN, HLD transferred to the ER from [place] for elevated BUN and creatinine and hyperglycemia. In the ER, she was noted to be at her baseline poorly responsive state reportedly but found to have leukocytosis with wbc of 17K, and elevated lactic acid in addition. UA was suggestive of UTI and CXR reveals possible Lt basilar atelectasis vs infiltrate. Pt has been started on empiric antibiotics with hydration. Currently pt is in an obtunded state, with low grade fever of 100.2F, and an increase in lactic acid to 3.3. Blood cultures preliminarily positive for gram neg rods. Pt is noted to have a deep sacral DU with drainage and a rectal tube with copious loose stool. 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 Cardio/Vascular: Yes: CAD, HTN, Hyperlipdemia Pulmonary: Yes: COPD Renal/: Yes: Renal Inusuff Infectious Disease: Yes: Other (oral abscess) Psych: Yes: Anxiety, Depression Musculoskeletal: Yes: Osteoarthritis Rheumatology: Yes: Gout Endocrine: Yes: Diabetes Mellitus, Hyperparathyroidism - Past Surgical History Past Surgical History: Yes: CABG Additional Surgical History: thrombectomy - Alcohol/Substance Use Hx Alcohol Use: No History of Substance Use: reports: None - Smoking History Smoking history: Unknown if ever smoked Have you smoked in the past 12 months: No Aproximately how many cigarettes per day: 0 If you are a former smoker, when did you quit?: about 30 years ago - Social History ADL: Independent History of Recent Travel: No Home Medications - Allergies Allergies/Adverse Reactions: Allergies Allergy/AdvReac Type Severity Reaction Status Date / Time aspirin Allergy Verified 10/17/19 17:51 Penicillins Allergy Hives Verified 10/17/19 17:51 codeine [Codeine] AdvReac HALLUCINATIONS, Verified 10/17/19 17:51 DROWSY morphine AdvReac HALLUCINATI Verified 10/17/19 17:51 ONS - Home Medications Home Medications: Ambulatory Orders Albuterol Sulfate [Proair Hfa -] 1 inh PO ASDIR PRN 90 Days hfa.aer.ad 05/17/15 Budesonide/Formeterol Fumarate [SYMBICORT 80/4.5mcg -] 2 inh IH BID 90 Days inhaler 05/17/15 Cholecalciferol (Vitamin D3) [Vitamin D3] 1,000 unit PO DAILY 01/18/17 Duloxetine HCl [Cymbalta] 30 mg PO AM 01/18/17 Gabapentin 400 mg PO TID PRN 01/18/17 Nitroglycerin [Nitrostat] 0.4 mg SL PRN 01/18/17 Pravastatin Sodium [Pravachol] 40 mg PO HS 01/18/17 Albuterol 2.5/Ipratropium 0.5 [Duoneb -] 1 neb IH QID 7 Days #30 vial.neb. 03/03/19 Albuterol 0.083% Nebulizer Sil [Ventolin 0.083% Nebulizer Soln -] 1 neb NEB Q4H PRN #30 vial 03/04/19 Cyanocobalamin [Vitamin B12 -] 1,000 mcg PO DAILY 08/23/19 Fluticasone Prop 0.05% Nasal [Flonase -] 1 - 2 spray NS BID 08/23/19 Isosorbide Mononitrate [Isosorbide Mononitrate ER] 60 mg PO DAILY 08/23/19 Lisinopril [Prinivil] 20 mg PO DAILY 08/23/19 Metoprolol Succinate [Toprol XL -] 25 mg PO AM 08/23/19 Pramipexole Di-HCl [Pramipexole ER] 0.5 mg PO TID 08/23/19 Torsemide 20 mg PO AM 08/23/19 Allopurinol [Zyloprim -] 100 mg PO DAILY #30 tablet 08/31/19 Amlodipine Besylate [Norvasc -] 5 mg PO DAILY #30 tablet 08/31/19 metFORMIN HCL [Glucophage -] 500 mg PO BID@0700,1630 tablet 08/31/19 predniSONE [Deltasone -] 5 mg PO DAILY #20 tablet 08/31/19 Review of Systems Unable to obtain ROS, reason: Pt obtunded Physical Exam Vital Signs: Vital Signs Temperature 100.2 F H 10/18/19 14:02 Pulse Rate 61 10/18/19 14:02 Respiratory Rate 20 10/18/19 14:59 Blood Pressure 95/50 L 10/18/19 14:02 O2 Sat by Pulse Oximetry (%) 98 10/18/19 14:59 Constitutional: Yes: No Distress Eyes: Yes: Conjunctiva Clear HENT: Yes: Other (s/p craniectomy) Neck: Yes: Other (+trach) Cardiovascular: Yes: Regular Rate and Rhythm Respiratory: Yes: Diminished (bases), Mechanically Ventilated Gastrointestinal: Yes: Normal Bowel Sounds, Soft, Abdomen, Obese ...Rectal Exam: Yes: Other (rectal tube +loose stool) Renal/: Yes: [place] Present Integumentary: Yes: Pressure Ulcer (sacral unstageable) Neurological: Yes: Unresponsive Labs: CBC, BMP 10/18/19 08:05 10/18/19 06:00 Laboratory Tests 10/17/19 10/17/19 10/17/19 18:40 18:40 18:47 WBC 17.0 H RBC 4.20 Hgb 9.2 L Hct 30.6 L D MCV 72.8 L MCH 22.0 L MCHC 30.2 L RDW 18.2 H Plt Count 483 H D MPV 8.8 Absolute Neuts (auto) 13.5 H Neutrophils % 79.7 Lymphocytes % 11.5 D Monocytes % 8.2 Eosinophils % 0.5 Basophils % 0.1 Nucleated RBC % 0 Hypochromia 2+ Anisocytosis 2+ Macrocytosis 2+ Ovalocytes 1+ PT with INR INR PTT (Actin FS) VBG pH 7.425 H POC VBG pCO2 45.2 POC VBG pO2 40.0 VBG HCO3 29.0 VBG O2 Sat (Brice) 75.9 VBG Base Excess 3.9 H Sodium Potassium Chloride Carbon Dioxide Anion Gap BUN Creatinine Est GFR (CKD-EPI)AfAm Est GFR (CKD-EPI)NonAf POC Glucometer Random Glucose Hemoglobin A1c % Lactic Acid 2.7 H* Calcium Iron TIBC Iron Saturation Unsaturated IBC Ferritin Total Bilirubin AST ALT Alkaline Phosphatase Troponin I Total Protein Albumin Vitamin B12 Beta-Hydroxybutyrate TSH Free T4 Urine Color Urine Appearance Urine pH Ur Specific [place] Urine Protein Urine Glucose (UA) Urine Ketones Urine Blood Urine Nitrite Urine Bilirubin Urine Urobilinogen Ur Leukocyte Esterase Urine WBC (Auto) Urine RBC (Auto) Urine Casts (Auto) U Pathogenic Cast Auto U Epithel Cells (Auto) U Sm Round Cell (Auto) Urine Bacteria (Auto) Ur Random Creatinine Ur Random Sodium Ur Random Potassium Ur Random Chloride Stool Occult Blood 10/17/19 10/17/19 10/17/19 18:47 18:47 20:36 WBC RBC Hgb Hct MCV MCH MCHC RDW Plt Count MPV Absolute Neuts (auto) Neutrophils % Lymphocytes % Monocytes % Eosinophils % Basophils % Nucleated RBC % Hypochromia Anisocytosis Macrocytosis Ovalocytes PT with INR 12.40 INR 1.05 PTT (Actin FS) 24.5 L VBG pH POC VBG pCO2 POC VBG pO2 VBG HCO3 VBG O2 Sat (Brice) VBG Base Excess Sodium 150 H Potassium 3.9 Chloride 112 H Carbon Dioxide 27 Anion Gap 11 BUN 113.6 H* Creatinine 1.4 H Est GFR (CKD-EPI)AfAm 43.70 Est GFR (CKD-EPI)NonAf 37.71 POC Glucometer Random Glucose 431 H* Hemoglobin A1c % Lactic Acid Calcium 8.8 Iron TIBC Iron Saturation Unsaturated IBC Ferritin Total Bilirubin 0.4 AST 66 H ALT 60 Alkaline Phosphatase 92 Troponin I < 0.02 Total Protein 7.2 Albumin 1.7 L Vitamin B12 Beta-Hydroxybutyrate 1.9 TSH Free T4 Urine Color Yellow Urine Appearance Cloudy Urine pH 5.0 Ur Specific [place] 1.019 Urine Protein Trace Urine Glucose (UA) 1+ H Urine Ketones Negative Urine Blood 1+ H Urine Nitrite Negative Urine Bilirubin Negative Urine Urobilinogen 0.2 Ur Leukocyte Esterase 2+ H Urine WBC (Auto) 295 Urine RBC (Auto) 10 Urine Casts (Auto) 13 U Pathogenic Cast Auto U Epithel Cells (Auto) 8 U Sm Round Cell (Auto) Urine Bacteria (Auto) 177 Ur Random Creatinine Ur Random Sodium Ur Random Potassium Ur Random Chloride Stool Occult Blood 10/17/19 10/17/19 10/18/19 22:11 23:19 00:14 WBC RBC Hgb Hct MCV MCH MCHC RDW Plt Count MPV Absolute Neuts (auto) Neutrophils % Lymphocytes % Monocytes % Eosinophils % Basophils % Nucleated RBC % Hypochromia Anisocytosis Macrocytosis Ovalocytes PT with INR INR PTT (Actin FS) VBG pH POC VBG pCO2 POC VBG pO2 VBG HCO3 VBG O2 Sat (Brice) VBG Base Excess Sodium Potassium Chloride Carbon Dioxide Anion Gap BUN Creatinine Est GFR (CKD-EPI)AfAm Est GFR (CKD-EPI)NonAf POC Glucometer [phone] Random Glucose Hemoglobin A1c % Lactic Acid Calcium Iron TIBC Iron Saturation Unsaturated IBC Ferritin Total Bilirubin AST ALT Alkaline Phosphatase Troponin I Total Protein Albumin Vitamin B12 Beta-Hydroxybutyrate TSH Free T4 Urine Color Urine Appearance Urine pH Ur Specific [place] Urine Protein Urine Glucose (UA) Urine Ketones Urine Blood Urine Nitrite Urine Bilirubin Urine Urobilinogen Ur Leukocyte Esterase Urine WBC (Auto) Urine RBC (Auto) Urine Casts (Auto) U Pathogenic Cast Auto U Epithel Cells (Auto) U Sm Round Cell (Auto) Urine Bacteria (Auto) Ur Random Creatinine Ur Random Sodium Ur Random Potassium Ur Random Chloride Stool Occult Blood 10/18/19 10/18/19 10/18/19 03:30 06:00 06:00 WBC RBC Hgb Hct MCV MCH MCHC RDW Plt Count MPV Absolute Neuts (auto) Neutrophils % Lymphocytes % Monocytes % Eosinophils % Basophils % Nucleated RBC % Hypochromia Anisocytosis Macrocytosis Ovalocytes PT with INR INR PTT (Actin FS) VBG pH POC VBG pCO2 POC VBG pO2 VBG HCO3 VBG O2 Sat (Brice) VBG Base Excess Sodium 155 H Potassium 3.8 Chloride 117 H Carbon Dioxide 29 Anion Gap 9 BUN 93.3 H Creatinine 0.9 Est GFR (CKD-EPI)AfAm 74.56 Est GFR (CKD-EPI)NonAf 64.33 POC Glucometer Random Glucose 253 H Hemoglobin A1c % 10.9 H Lactic Acid 3.3 H* Calcium 8.9 Iron 13 L TIBC 145 L Iron Saturation 8 L Unsaturated IBC 132 L Ferritin 636.2 H Total Bilirubin AST ALT Alkaline Phosphatase Troponin I Total Protein Albumin Vitamin B12 > 2000 H Beta-Hydroxybutyrate TSH 1.16 Free T4 0.98 Urine Color Urine Appearance Urine pH Ur Specific [place] Urine Protein Urine Glucose (UA) Urine Ketones Urine Blood Urine Nitrite Urine Bilirubin Urine Urobilinogen Ur Leukocyte Esterase Urine WBC (Auto) Urine RBC (Auto) Urine Casts (Auto) U Pathogenic Cast Auto U Epithel Cells (Auto) U Sm Round Cell (Auto) Urine Bacteria (Auto) Ur Random Creatinine Ur Random Sodium Ur Random Potassium Ur Random Chloride Stool Occult Blood 10/18/19 10/18/19 10/18/19 06:05 08:05 11:29 WBC 13.5 H RBC 3.89 Hgb 8.4 L Hct 27.8 L MCV 71.6 L MCH 21.7 L MCHC 30.3 L RDW 18.7 H Plt Count 387 MPV 8.5 Absolute Neuts (auto) 10.6 H Neutrophils % 78.4 Lymphocytes % 11.4 Monocytes % 9.8 Eosinophils % 0.3 Basophils % 0.1 Nucleated RBC % 0 Hypochromia Anisocytosis Macrocytosis Ovalocytes PT with INR INR PTT (Actin FS) VBG pH POC VBG pCO2 POC VBG pO2 VBG HCO3 VBG O2 Sat (Brice) VBG Base Excess Sodium Potassium Chloride Carbon Dioxide Anion Gap BUN Creatinine Est GFR (CKD-EPI)AfAm Est GFR (CKD-EPI)NonAf POC Glucometer 276 191 Random Glucose Hemoglobin A1c % Lactic Acid Calcium Iron TIBC Iron Saturation Unsaturated IBC Ferritin Total Bilirubin AST ALT Alkaline Phosphatase Troponin I Total Protein Albumin Vitamin B12 Beta-Hydroxybutyrate TSH Free T4 Urine Color Urine Appearance Urine pH Ur Specific [place] Urine Protein Urine Glucose (UA) Urine Ketones Urine Blood Urine Nitrite Urine Bilirubin Urine Urobilinogen Ur Leukocyte Esterase Urine WBC (Auto) Urine RBC (Auto) Urine Casts (Auto) U Pathogenic Cast Auto U Epithel Cells (Auto) U Sm Round Cell (Auto) Urine Bacteria (Auto) Ur Random Creatinine Ur Random Sodium Ur Random Potassium Ur Random Chloride Stool Occult Blood 10/18/19 10/18/19 10/18/19 15:15 15:15 15:15 WBC RBC Hgb Hct MCV MCH MCHC RDW Plt Count MPV Absolute Neuts (auto) Neutrophils % Lymphocytes % Monocytes % Eosinophils % Basophils % Nucleated RBC % Hypochromia Anisocytosis Macrocytosis Ovalocytes PT with INR INR PTT (Actin FS) VBG pH POC VBG pCO2 POC VBG pO2 VBG HCO3 VBG O2 Sat (Brice) VBG Base Excess Sodium Potassium Chloride Carbon Dioxide Anion Gap BUN Creatinine Est GFR (CKD-EPI)AfAm Est GFR (CKD-EPI)NonAf POC Glucometer Random Glucose Hemoglobin A1c % Lactic Acid Calcium Iron TIBC Iron Saturation Unsaturated IBC Ferritin Total Bilirubin AST ALT Alkaline Phosphatase Troponin I Total Protein Albumin Vitamin B12 Beta-Hydroxybutyrate TSH Free T4 Urine Color Yellow Urine Appearance Cloudy Urine pH 5.0 Ur Specific [place] 1.020 Urine Protein 1+ H Urine Glucose (UA) Negative Urine Ketones Negative Urine Blood 3+ H Urine Nitrite Negative Urine Bilirubin Negative Urine Urobilinogen 0.2 Ur Leukocyte Esterase 1+ H Urine WBC (Auto) 24 Urine RBC (Auto) 196 Urine Casts (Auto) 21 U Pathogenic Cast Auto None U Epithel Cells (Auto) >36 U Sm Round Cell (Auto) None Urine Bacteria (Auto) 9 Ur Random Creatinine 45.0 Ur Random Sodium < 18 L Ur Random Potassium 26.0 Ur Random Chloride < 11 L Stool Occult Blood 10/18/19 10/18/19 15:15 17:22 WBC RBC Hgb Hct MCV MCH MCHC RDW Plt Count MPV Absolute Neuts (auto) Neutrophils % Lymphocytes % Monocytes % Eosinophils % Basophils % Nucleated RBC % Hypochromia Anisocytosis Macrocytosis Ovalocytes PT with INR INR PTT (Actin FS) VBG pH POC VBG pCO2 POC VBG pO2 VBG HCO3 VBG O2 Sat (Brice) VBG Base Excess Sodium Potassium Chloride Carbon Dioxide Anion Gap BUN Creatinine Est GFR (CKD-EPI)AfAm Est GFR (CKD-EPI)NonAf POC Glucometer 256 Random Glucose Hemoglobin A1c % Lactic Acid Calcium Iron TIBC Iron Saturation Unsaturated IBC Ferritin Total Bilirubin AST ALT Alkaline Phosphatase Troponin I Total Protein Albumin Vitamin B12 Beta-Hydroxybutyrate TSH Free T4 Urine Color Urine Appearance Urine pH Ur Specific [place] Urine Protein Urine Glucose (UA) Urine Ketones Urine Blood Urine Nitrite Urine Bilirubin Urine Urobilinogen Ur Leukocyte Esterase Urine WBC (Auto) Urine RBC (Auto) Urine Casts (Auto) U Pathogenic Cast Auto U Epithel Cells (Auto) U Sm Round Cell (Auto) Urine Bacteria (Auto) Ur Random Creatinine Ur Random Sodium Ur Random Potassium Ur Random Chloride Stool Occult Blood Negative Microbiology 10/17/19 18:40 Blood - Peripheral Venous Blood Culture - Preliminary Pending Organism 10/17/19 18:40 Blood - Peripheral Venous Blood Culture - Preliminary Pending Organism Imaging - Results Chest X-ray: Report Reviewed Problem List - Problems (1) Gram-negative bacteremia Code(s): R78.81 - BACTEREMIA (2) History of CVA (cerebrovascular accident) Code(s): Z86.73 - PRSNL HX OF TIA (TIA), AND CEREB INFRC W/O RESID DEFICITS (3) CAD (coronary artery disease) Code(s): I25.10 - ATHSCL HEART DISEASE OF [place] CORONARY ARTERY W/O ANG PCTRS (4) Diarrhea Code(s): R19.7 - DIARRHEA, UNSPECIFIED (5) VESTA (acute kidney injury) Code(s): N17.9 - ACUTE KIDNEY FAILURE, UNSPECIFIED (6) Pneumonia Code(s): J18.9 - PNEUMONIA, UNSPECIFIED ORGANISM (7) Obese Code(s): E66.9 - OBESITY, UNSPECIFIED Qualifiers: Body mass index: BMI 60.0-69.9 (8) UTI (urinary tract infection) Code(s): N39.0 - URINARY TRACT INFECTION, SITE NOT SPECIFIED Qualifiers: Urinary tract infection type: site unspecified Hematuria presence: with hematuria Qualified Code(s): N39.0 - Urinary tract infection, site not specified; R31.9 - Hematuria, unspecified (9) Diabetes Code(s): E11.9 - TYPE 2 DIABETES MELLITUS WITHOUT COMPLICATIONS (10) HTN (hypertension) Code(s): I10 - ESSENTIAL (PRIMARY) HYPERTENSION (11) Hyperlipidemia Code(s): E78.5 - HYPERLIPIDEMIA, UNSPECIFIED (12) S/P CABG (coronary artery bypass graft) Code(s): Z95.1 - PRESENCE OF AORTOCORONARY BYPASS GRAFT (13) COPD (chronic obstructive pulmonary disease) Code(s): J44.9 - CHRONIC OBSTRUCTIVE PULMONARY DISEASE, UNSPECIFIED Assessment/Plan Sepsis Gram negative bacteremia UTI Possible HCAP vs VAP Diarrhea r/o C dif Possible Sacral DU infection Chronic respiratory failure s/p trach/MV Acute kidney injury Uncontrolled DM Morbid obesity Hx of CVA s/p thrombectomy CAD s/p CABG x 2 COPD Diastolic CHF HTN HLD -- Continue Cefepime for now, add Flagyl IV. 1 dose of Vancomycin IV for now empirically. -- follow up blood culture isolate, urine cultures pending -- send wound culture from DU, needs wound care/frequent turning -- sputum cultures -- stool for Cdiff testing -- repeat lactic acid -- Covid-19 results pending, maintain isolation/precautions for now -- renal function improving, continue monitor -- monitor vitals closely Will follow Thank you
[2019-10-18] MEDS ORDERED: VANCOMYCIN 1 GRAM (PRE-DOCKED) 1,000 MG/250 ML BAG IVPB ONE (18:21)
[2019-10-18] MEDS: ALBUTEROL SO4 2.5/IPRATROPIUM 0.5 INH SOL 3 ML VIAL.NEB. NEB SCH (20:00)
[2019-10-18] MEDS ORDERED: SODIUM CHLORIDE 250 ML IV STA (20:36)
[2019-10-18] MEDS ORDERED: SODIUM CHLORIDE 0.45% 250 ML IV SCH (20:45)
--- NOTE | 2019-10-18 21:00 | CONSULT ---
Consult Consult Specialty:: Endocrine Referred by:: Lanny CAMACHO Reason for Consultation:: dmt2 - History of Present Illness Chief Complaint: lethargic and weak History of Present Illness: 69 year old female pmh of DMT2,diastolic congestive heart failure, coronary artery disease status post CABG x2, moderate-severe aortic regurgitation, hyperparathyroidism, obesity,COPD, HTN, HLD, CVA s/p thrombectomy 09/2019 at [facility] with respiratory failure s/p tracheostomy and PEG tube who was sent from [facility] for hyperglycemia and "dehydration". Per ID, blood sugar was in the 400's and VESTA,requiring rehydration,and insulin coverage. 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 Cardio/Vascular: Yes: CAD, HTN, Hyperlipdemia Pulmonary: Yes: COPD Renal/: Yes: Renal Inusuff Infectious Disease: Yes: Other (oral abscess) Psych: Yes: Anxiety, Depression Musculoskeletal: Yes: Osteoarthritis Rheumatology: Yes: Gout Endocrine: Yes: Diabetes Mellitus, Hyperparathyroidism - Past Surgical History Past Surgical History: Yes: CABG Additional Surgical History: thrombectomy - Alcohol/Substance Use Hx Alcohol Use: No History of Substance Use: reports: None - Smoking History Smoking history: Unknown if ever smoked Have you smoked in the past 12 months: No Aproximately how many cigarettes per day: 0 If you are a former smoker, when did you quit?: about 30 years ago - Social History ADL: Independent History of Recent Travel: No Home Medications - Allergies Allergies/Adverse Reactions: Allergies Allergy/AdvReac Type Severity Reaction Status Date / Time aspirin Allergy Verified 10/17/19 17:51 Penicillins Allergy Hives Verified 10/17/19 17:51 codeine [Codeine] AdvReac HALLUCINATIONS, Verified 10/17/19 17:51 DROWSY morphine AdvReac HALLUCINATI Verified 10/17/19 17:51 ONS - Home Medications Home Medications: Ambulatory Orders Albuterol Sulfate [Proair Hfa -] 1 inh PO ASDIR PRN 90 Days hfa.aer.ad 05/17/15 Budesonide/Formeterol Fumarate [SYMBICORT 80/4.5mcg -] 2 inh IH BID 90 Days inhaler 05/17/15 Cholecalciferol (Vitamin D3) [Vitamin D3] 1,000 unit PO DAILY 01/18/17 Duloxetine HCl [Cymbalta] 30 mg PO AM 01/18/17 Gabapentin 400 mg PO TID PRN 01/18/17 Nitroglycerin [Nitrostat] 0.4 mg SL PRN 01/18/17 Pravastatin Sodium [Pravachol] 40 mg PO HS 01/18/17 Albuterol 2.5/Ipratropium 0.5 [Duoneb -] 1 neb IH QID 7 Days #30 vial.neb. 03/03/19 Albuterol 0.083% Nebulizer Sil [Ventolin 0.083% Nebulizer Soln -] 1 neb NEB Q4H PRN #30 vial 03/04/19 Cyanocobalamin [Vitamin B12 -] 1,000 mcg PO DAILY 08/23/19 Fluticasone Prop 0.05% Nasal [Flonase -] 1 - 2 spray NS BID 08/23/19 Isosorbide Mononitrate [Isosorbide Mononitrate ER] 60 mg PO DAILY 08/23/19 Lisinopril [Prinivil] 20 mg PO DAILY 08/23/19 Metoprolol Succinate [Toprol XL -] 25 mg PO AM 08/23/19 Pramipexole Di-HCl [Pramipexole ER] 0.5 mg PO TID 08/23/19 Torsemide 20 mg PO AM 08/23/19 Allopurinol [Zyloprim -] 100 mg PO DAILY #30 tablet 08/31/19 Amlodipine Besylate [Norvasc -] 5 mg PO DAILY #30 tablet 08/31/19 metFORMIN HCL [Glucophage -] 500 mg PO BID@0700,1630 tablet 08/31/19 predniSONE [Deltasone -] 5 mg PO DAILY #20 tablet 08/31/19 Review of Systems Unable to obtain ROS, reason: lethargic obtunded - Review of Systems Constitutional: reports: Lethargy, Malaise HENT: reports: No Symptoms Neck: reports: No Symptoms Cardiovascular: reports: Shortness of Breath Respiratory: reports: Orthopnea, Snoring Physical Exam Vital Signs: Vital Signs Temperature 100.6 F H 10/18/19 18:00 Pulse Rate 94 H 10/18/19 18:00 Respiratory Rate 19 10/18/19 19:30 Blood Pressure 108/57 L 10/18/19 18:00 O2 Sat by Pulse Oximetry (%) 98 10/18/19 19:30 Labs: CBC, BMP 10/18/19 08:05 10/18/19 06:00 Problem List - Problems (1) VESTA (acute kidney injury) Code(s): N17.9 - ACUTE KIDNEY FAILURE, UNSPECIFIED (2) CAD (coronary artery disease) Code(s): I25.10 - ATHSCL HEART DISEASE OF [place] CORONARY ARTERY W/O ANG PCTRS (3) COPD (chronic obstructive pulmonary disease) Code(s): J44.9 - CHRONIC OBSTRUCTIVE PULMONARY DISEASE, UNSPECIFIED (4) Diarrhea Code(s): R19.7 - DIARRHEA, UNSPECIFIED (5) Gram-negative bacteremia Code(s): R78.81 - BACTEREMIA (6) History of CVA (cerebrovascular accident) Code(s): Z86.73 - PRSNL HX OF TIA (TIA), AND CEREB INFRC W/O RESID DEFICITS Assessment/Plan Current Active Problems VESTA (acute kidney injury) (Acute) Bacteremia (Acute) CAD (coronary artery disease) (Acute) COPD (chronic obstructive pulmonary disease) (Acute) Diarrhea (Acute) Gram-negative bacteremia (Acute) High glucose (Acute) History of CVA (cerebrovascular accident) (Acute) Metabolic encephalopathy (Acute) Pneumonia (Acute) Abnormal Lab Results 10/18/19 10/18/19 10/18/19 03:30 06:00 06:00 WBC Hgb Hct MCV MCH MCHC RDW Absolute Neuts (auto) Sodium 155 H Chloride 117 H BUN 93.3 H Random Glucose 253 H Hemoglobin A1c % 10.9 H Lactic Acid 3.3 H* Iron 13 L TIBC 145 L Iron Saturation 8 L Unsaturated IBC 132 L Ferritin 636.2 H Vitamin B12 > 2000 H Urine Protein Urine Blood Ur Leukocyte Esterase Ur Random Sodium Ur Random Chloride 10/18/19 10/18/19 10/18/19 08:05 15:15 15:15 WBC 13.5 H Hgb 8.4 L Hct 27.8 L MCV 71.6 L MCH 21.7 L MCHC 30.3 L RDW 18.7 H Absolute Neuts (auto) 10.6 H Sodium Chloride BUN Random Glucose Hemoglobin A1c % Lactic Acid Iron TIBC Iron Saturation Unsaturated IBC Ferritin Vitamin B12 Urine Protein 1+ H Urine Blood 3+ H Ur Leukocyte Esterase 1+ H Ur Random Sodium < 18 L Ur Random Chloride < 11 L 10/18/19 18:40 WBC Hgb Hct MCV MCH MCHC RDW Absolute Neuts (auto) Sodium Chloride BUN Random Glucose Hemoglobin A1c % Lactic Acid 2.9 H* Iron TIBC Iron Saturation Unsaturated IBC Ferritin Vitamin B12 Urine Protein Urine Blood Ur Leukocyte Esterase Ur Random Sodium Ur Random Chloride plan: bgm qid novolog scale levemir 10 units bid iv antibiotic / tube feedings nutrition calorie count
[2019-10-18] MEDS ORDERED: ATORVASTATIN CA 40 MG TABLET (FP) PEG SCH (22:00)
[2019-10-18] MEDS: ATORVASTATIN CA 80 MG TABLET (FP) PEG SCH (22:36)
[2019-10-18] MEDS: HEPARIN NA (PORCINE) 5,000 UNITS/ML 1ML VIAL SQ SCH (22:37)
[2019-10-18] MEDS: ACETAMINOPHEN 650 MG/20.3 ML ORAL SOLUTION (CUPS) GT PRN (22:39)
[2019-10-18] MEDS: INSULIN (LEVEMIR) 100 UNITS/ML UNITS SQ SCH (22:47)
[2019-10-18] MEDS ORDERED: CHOLECALCIFEROL (VIT D SOLUTION) 400 UNIT/1 ML DROPS GT SCH (23:36)
[2019-10-19] MEDS: CEFEPIME 2 GM in DEXTROSE 5%-WATER 100 ML IVPB SCH ×3 (01:27→17:19)
[2019-10-19] MEDS: SODIUM CHLORIDE 0.45% 1,000 ML IV SCH ×3 (01:32→14:10)
[2019-10-19] MEDS: ACETAMINOPHEN 650 MG/20.3 ML ORAL SOLUTION (CUPS) GT PRN (06:02)
[2019-10-19] MEDS: VALPROATE SODIUM 250 MG/5 ML UNIT DOSE CUP GT SCH ×3 (06:02→22:11)
[2019-10-19] MEDS: INSULIN SLIDING SCALE (NOVOLOG) 1 VIAL SQ SCH ×4 (06:14→23:23)
[2019-10-19] MEDS: INSULIN (LEVEMIR) 100 UNITS/ML UNITS SQ SCH ×2 (06:17→22:11)
[2019-10-19] MEDS ORDERED: metoPROLOL SUCCINATE 25 MG TAB.SR.24H (FP) NR SCH (07:00)
[2019-10-19] MEDS ORDERED: DULoxetine HCL 30 MG CAPSULE.DR PO SCH (07:00)
[2019-10-19] MEDS: ALBUTEROL SO4 2.5/IPRATROPIUM 0.5 INH SOL 3 ML VIAL.NEB. NEB SCH ×2 (08:32→20:00)
[2019-10-19] MEDS: FERROUS SO4 300 MG/5 ML ORAL SOLN UNIT DOSE CUPS GT SCH (09:35)
[2019-10-19] MEDS: levETIRAcetam 500 MG/5 ML ORAL SOLUTION (UNIT-DOSE CUPS) GT SCH ×2 (09:35→22:10)
[2019-10-19] MEDS: MULTIVIT-MINERALS ORAL LIQUID GT SCH (09:36)
[2019-10-19] MEDS: ASCORBIC ACID 500 MG/5 ML UNIT DOSE CUP GT SCH (09:36)
[2019-10-19] MEDS: PANTOPRAZOLE SODIUM 40 MG VIAL IVPUSH SCH (09:36)
[2019-10-19] MEDS: ALLOPURINOL 100 MG TABLET (FP) PEG SCH (09:36)
[2019-10-19] MEDS: CYANOCOBALAMIN 1,000 MCG TABLET (FP) PO SCH (09:36)
[2019-10-19] MEDS: HEPARIN NA (PORCINE) 5,000 UNITS/ML 1ML VIAL SQ SCH ×2 (09:36→22:11)
[2019-10-19] MEDS: predniSONE 5 MG TABLET (UD) PEG SCH (09:36)
--- NOTE | 2019-10-19 09:49 | PN ---
Progress Note, Physician - Current Medication List Current Medications: Active Medications Acetaminophen (Tylenol Oral Solution -) 650 mg GT Q6H PRN PRN Reason: PAIN Last Admin: 10/19/19 06:02 Dose: 650 mg Documented by: Albuterol/Ipratropium (Duoneb -) 1 amp NEB RQID [facility] Last Admin: 10/18/19 20:00 Dose: Not Given Documented by: Allopurinol (Zyloprim -) 100 mg PEG DAILY [facility] Last Admin: 10/19/19 09:36 Dose: 100 mg Documented by: Amlodipine Besylate (Norvasc -) 5 mg PEG DAILY [facility] Last Admin: 10/18/19 09:51 Dose: 5 mg Documented by: Ascorbic Acid (Vitamin C Oral Solution -) 500 mg GT DAILY [facility] Last Admin: 10/19/19 09:36 Dose: 500 mg Documented by: Atorvastatin Calcium (Lipitor -) 80 mg PEG HS [facility] Last Admin: 10/18/19 22:36 Dose: 80 mg Documented by: Cholecalciferol (Vitamin D3 Oral Solution -) 1,000 unit GT DAILY [facility] Last Admin: 10/19/19 09:35 Dose: 1,000 unit Documented by: Collagenase (Santyl -) 1 applic TP DAILY [facility]IE; Protocol Last Admin: 10/18/19 13:25 Dose: 1 applic Documented by: Cyanocobalamin (Vitamin B12 -) 1,000 mcg PO DAILY [facility] Last Admin: 10/19/19 09:36 Dose: 1,000 mcg Documented by: Ferrous Sulfate (Feosol) 300 mg GT DAILY [facility] Last Admin: 10/19/19 09:35 Dose: 300 mg Documented by: Heparin Sodium (Porcine) (Heparin -) 5,000 unit SQ BID [facility] Last Admin: 10/19/19 09:36 Dose: 5,000 unit Documented by: Sodium Chloride (1/2 Normal Saline) 1,000 mls @ 100 mls/hr IV ASDIR [facility] Last Admin: 10/19/19 06:02 Dose: 100 mls/hr Documented by: Cefepime HCl 2 gm/ Dextrose 100 mls @ 100 mls/hr IVPB Q8H-IV [facility]; Protocol Last Admin: 10/19/19 09:34 Dose: 100 mls/hr Documented by: Metronidazole (Flagyl 500mg Premixed Ivpb -) 500 mg in 100 mls @ 100 mls/hr IVPB Q8H-IV [facility] Last Admin: 10/19/19 02:17 Dose: 100 mls/hr Documented by: Insulin Aspart (Novolog Vial Sliding Scale -) 1 vial SQ Q6HPO [facility]; Protocol Last Admin: 10/19/19 06:14 Dose: 4 units Documented by: Insulin Detemir (Levemir Vial) 10 units SQ 0700,2200 [facility] Last Admin: 10/19/19 06:17 Dose: 10 units Documented by: Levetiracetam (Keppra Oral Solution -) 1,000 mg GT BID [facility] Last Admin: 10/19/19 09:35 Dose: 1,000 mg Documented by: Multivitamins/Minerals (Certavite-Antioxidant Liquid) 15 ml GT DAILY [facility] Last Admin: 10/19/19 09:36 Dose: 15 ml Documented by: Nystatin (Nystop Powder -) 1 applic TP BID [facility] Last Admin: 10/18/19 22:39 Dose: 1 applic Documented by: Pantoprazole Sodium (Protonix Iv) 40 mg IVPUSH DAILY [facility] Last Admin: 10/19/19 09:36 Dose: 40 mg Documented by: Pneumococcal 13-Valent Conj Vacc (Prevnar 13 Syringe -) 0.5 ml IM .ONCE ONE Stop: 10/18/19 13:48 Prednisone (Deltasone -) 5 mg PEG DAILY [facility] Last Admin: 10/19/19 09:36 Dose: 5 mg Documented by: Valproate Sodium (Depakene -) 750 mg GT TID [facility] Last Admin: 10/19/19 06:02 Dose: 750 mg Documented by: - Objective Vital Signs: Vital Signs Temperature 100.6 F H 10/19/19 08:53 Pulse Rate 84 10/19/19 08:53 Respiratory Rate 15 10/19/19 08:53 Blood Pressure 112/49 L 10/19/19 08:53 O2 Sat by Pulse Oximetry (%) 98 10/19/19 08:53 Cardiovascular: Yes: S1, S2 Respiratory: Yes: Mechanically Ventilated Gastrointestinal: Yes: Normal Bowel Sounds, Soft Labs: CBC, BMP 10/18/19 08:05 10/18/19 06:00 INR, PTT INR 1.05 (0.83-1.09) 10/17/19 18:47 Assessment/Plan - Problems (1) Metabolic encephalopathy Assessment/Plan: -BC+ -UC pending -ID consult -IV abx as per ID Problems reviewed: Yes Code(s): G93.41 - METABOLIC ENCEPHALOPATHY (2) VESTA (acute kidney injury) Assessment/Plan: -Nephrology consult -Gentle IVF -Monitor trend Problems reviewed: Yes Code(s): N17.9 - ACUTE KIDNEY FAILURE, UNSPECIFIED (3) Acute hypercapnic respiratory failure Assessment/Plan: -Pulmonary consult -Mech vent -Not a candidate for weaning at this time Problems reviewed: Yes Code(s): J96.02 - ACUTE RESPIRATORY FAILURE WITH HYPERCAPNIA (4) Diabetes Assessment/Plan: -BGM Q6H -Check A1c -ISS -Levemir 10 U BID -Endocrine consult Problems reviewed: Yes Code(s): E11.9 - TYPE 2 DIABETES MELLITUS WITHOUT COMPLICATIONS (5) Bacteremia Assessment/Plan: -ID consult -Afebrile -Monitor labs -IV abx - Microbiology 10/17/19 18:40 Blood - Peripheral Venous Blood Culture - Preliminary Non Lactose Fermenting Gnb 10/17/19 18:40 Blood - Peripheral Venous Blood Culture - Preliminary Proteus Species 10/18/19 03:30 Urine - Urine Robbins Urine Culture - Preliminary Proteus Species 10/17/19 20:36 Urine - Urine - Catheterized Urine Culture - Preliminary Non Lactose Fermenting Gnb Problems reviewed: Yes Code(s): R78.81 - BACTEREMIA (6) Pneumonia Assessment/Plan: -CXR LLL infiltrate -ID consult -Pulmonary consult -COVID 19 pending Problems reviewed: Yes Code(s): J18.9 - PNEUMONIA, UNSPECIFIED ORGANISM Qualifiers: Pneumonia type: due to unspecified organism Laterality: unspecified laterality Lung location: unspecified part of lung Qualified Code(s): J18.9 - Pneumonia, unspecified organism (7) Anemia Assessment/Plan: -Monitor
[2019-10-19] MEDS: amLODIPine BESYLATE 5 MG TABLET (FP) PEG SCH (10:31)
[2019-10-19] MEDS: COLLAGENASE CLOSTRIDIUM HIST. 30 GRAMS TUBE TP SCH (10:31)
[2019-10-19] MEDS: NYSTATIN POWDER 100,000 UNITS/GM - 15 GM TOPICAL POWDER TP SCH ×2 (10:31→22:15)
--- NOTE | 2019-10-19 11:27 | PN ---
Progress Note (short form) - Note Progress Note: PULMONARY CONSULTATION DICTATED 10/19/19 IMP CHRONIC RESPIRATORY FAILURE S/P CVA WITH THROMBECTOMY UROSEPSIS GRAM NEG BACTEREMIA ? PNEUMONIA ELEVATED LACTATE LEVEL ASHD S/P CABG COPD HTN HLD DIASTOLIC HF SACRAL DECUBITUS VESTA ANEMIA PLAN VENT SUPPORT ON AC MODE IVF ABX PER ID TREND LACTATE MONITOR LYTES,RENAL FUNCTION,H+H F/U CHEST X-RAYS WOUND CARE DR DUKE Problem List - Problems (1) Lactic acid increased Code(s): E87.2 - ACIDOSIS (2) VESTA (acute kidney injury) Code(s): N17.9 - ACUTE KIDNEY FAILURE, UNSPECIFIED (3) Bacteremia Code(s): R78.81 - BACTEREMIA (4) CAD (coronary artery disease) Code(s): I25.10 - ATHSCL HEART DISEASE OF [place] CORONARY ARTERY W/O ANG PCTRS (5) COPD (chronic obstructive pulmonary disease) Code(s): J44.9 - CHRONIC OBSTRUCTIVE PULMONARY DISEASE, UNSPECIFIED (6) Gram-negative bacteremia Code(s): R78.81 - BACTEREMIA (7) History of CVA (cerebrovascular accident) Code(s): Z86.73 - PRSNL HX OF TIA (TIA), AND CEREB INFRC W/O RESID DEFICITS (8) Pneumonia Code(s): J18.9 - PNEUMONIA, UNSPECIFIED ORGANISM Qualifiers: Pneumonia type: due to unspecified organism Laterality: unspecified laterality Lung location: unspecified part of lung Qualified Code(s): J18.9 - Pneumonia, unspecified organism (9) Arteriosclerotic heart disease (ASHD) Code(s): I25.10 - ATHSCL HEART DISEASE OF [place] CORONARY ARTERY W/O ANG PCTRS (10) Diabetes Code(s): E11.9 - TYPE 2 DIABETES MELLITUS WITHOUT COMPLICATIONS (11) HTN (hypertension) Code(s): I10 - ESSENTIAL (PRIMARY) HYPERTENSION (12) S/P CABG (coronary artery bypass graft) Code(s): Z95.1 - PRESENCE OF AORTOCORONARY BYPASS GRAFT (13) Chronic respiratory failure Code(s): J96.10 - CHRONIC RESPIRATORY FAILURE, UNSP W HYPOXIA OR HYPERCAPNIA (14) Sepsis Code(s): A41.9 - SEPSIS, UNSPECIFIED ORGANISM (15) High glucose Code(s): R73.09 - OTHER ABNORMAL GLUCOSE
[2019-10-19 11:37] LABS: BASO % 0.2 % (0-2.0); EOS % 0.5 % (0-4.5); HEMATOCRIT 25.5 % (32.4-45.2); HEMOGLOBIN 7.6 GM/dL (10.7-15.3); LYMPH % 16.6 % (8-40); MCH 21.8 pg (25.7-33.7); MEAN CELL VOLUME 72.8 fl (80-96); MONO % 8.5 % (3.8-10.2); NEUT % 74.2 % (42.8-82.8); PLATELET COUNT 325 K/MM3 (134-434); WHITE BLOOD COUNT 11.6 K/mm3 (4.0-10.0)
[2019-10-19] MEDS ORDERED: INSULIN (NOVOLOG) ASPART 100 UNITS/ML 10ML VIAL ONE (11:39)
[2019-10-19 12:12] LABS: ALBUMIN 1.4 g/dl (3.4-5.0); BLOOD UREA NITROGEN 70.7 mg/dL (7-18); CALCIUM 8.3 mg/dL (8.5-10.1); CREATININE 0.9 mg/dL (0.55-1.3); POTASSIUM 4.1 mmol/L (3.5-5.1)
[2019-10-19 12:14] LABS: BILIRUBIN,TOTAL 0.2 mg/dL (0.2-1); TOT PROT 5.8 g/dl (6.4-8.2)
--- NOTE | 2019-10-19 12:39 | PN ---
Progress Note, Physician History of Present Illness: Pt seen and examined at bedside. No great change in status. - Current Medication List Current Medications: Active Medications Acetaminophen (Tylenol Oral Solution -) 650 mg GT Q6H PRN PRN Reason: PAIN Last Admin: 10/19/19 06:02 Dose: 650 mg Documented by: Albuterol/Ipratropium (Duoneb -) 1 amp NEB RQID [facility] Last Admin: 10/19/19 08:32 Dose: Not Given Documented by: Allopurinol (Zyloprim -) 100 mg PEG DAILY [facility] Last Admin: 10/19/19 09:36 Dose: 100 mg Documented by: Amlodipine Besylate (Norvasc -) 5 mg PEG DAILY [facility] Last Admin: 10/19/19 10:31 Dose: 5 mg Documented by: Ascorbic Acid (Vitamin C Oral Solution -) 500 mg GT DAILY [facility] Last Admin: 10/19/19 09:36 Dose: 500 mg Documented by: Atorvastatin Calcium (Lipitor -) 80 mg PEG HS [facility] Last Admin: 10/18/19 22:36 Dose: 80 mg Documented by: Cholecalciferol (Vitamin D3 Oral Solution -) 1,000 unit GT DAILY [facility] Last Admin: 10/19/19 09:35 Dose: 1,000 unit Documented by: Collagenase (Santyl -) 1 applic TP DAILY [facility]; Protocol Last Admin: 10/19/19 10:31 Dose: 1 applic Documented by: Cyanocobalamin (Vitamin B12 -) 1,000 mcg PO DAILY [facility] Last Admin: 10/19/19 09:36 Dose: 1,000 mcg Documented by: Ferrous Sulfate (Feosol) 300 mg GT DAILY [facility] Last Admin: 10/19/19 09:35 Dose: 300 mg Documented by: Heparin Sodium (Porcine) (Heparin -) 5,000 unit SQ BID [facility] Last Admin: 10/19/19 09:36 Dose: 5,000 unit Documented by: Sodium Chloride (1/2 Normal Saline) 1,000 mls @ 100 mls/hr IV ASDIR [facility] Last Admin: 10/19/19 06:02 Dose: 100 mls/hr Documented by: Cefepime HCl 2 gm/ Dextrose 100 mls @ 100 mls/hr IVPB Q8H-IV [facility]; Protocol Last Admin: 10/19/19 09:34 Dose: 100 mls/hr Documented by: Metronidazole (Flagyl 500mg Premixed Ivpb -) 500 mg in 100 mls @ 100 mls/hr IVPB Q8H-IV [facility] Last Admin: 10/19/19 10:30 Dose: 100 mls/hr Documented by: Insulin Aspart (Novolog Vial Sliding Scale -) 1 vial SQ Q6HPO [facility]; Protocol Last Admin: 10/19/19 11:58 Dose: 8 units Documented by: Insulin Detemir (Levemir Vial) 10 units SQ 0700,2200 [facility] Last Admin: 10/19/19 06:17 Dose: 10 units Documented by: Levetiracetam (Keppra Oral Solution -) 1,000 mg GT BID [facility] Last Admin: 10/19/19 09:35 Dose: 1,000 mg Documented by: Multivitamins/Minerals (Certavite-Antioxidant Liquid) 15 ml GT DAILY [facility] Last Admin: 10/19/19 09:36 Dose: 15 ml Documented by: Nystatin (Nystop Powder -) 1 applic TP BID [facility] Last Admin: 10/19/19 10:31 Dose: 1 applic Documented by: Pantoprazole Sodium (Protonix Iv) 40 mg IVPUSH DAILY [facility] Last Admin: 10/19/19 09:36 Dose: 40 mg Documented by: Pneumococcal 13-Valent Conj Vacc (Prevnar 13 Syringe -) 0.5 ml IM .ONCE ONE Stop: 10/18/19 13:48 Prednisone (Deltasone -) 5 mg PEG DAILY [facility] Last Admin: 10/19/19 09:36 Dose: 5 mg Documented by: Valproate Sodium (Depakene -) 750 mg GT TID [facility] Last Admin: 10/19/19 06:02 Dose: 750 mg Documented by: - Objective Vital Signs: Vital Signs Temperature 100.6 F H 10/19/19 08:53 Pulse Rate 84 10/19/19 08:53 Respiratory Rate 24 H 10/19/19 09:36 Blood Pressure 112/49 L 10/19/19 08:53 O2 Sat by Pulse Oximetry (%) 97 10/19/19 09:36 Constitutional: Yes: Calm Cardiovascular: Yes: S1, S2 Respiratory: Yes: Mechanically Ventilated Gastrointestinal: Yes: Normal Bowel Sounds, Soft Genitourinary: Yes: Robbins Present Musculoskeletal: Yes: Muscle Weakness Edema: No Neurological: Yes: Pre-Existing Deficit Labs: CBC, BMP 10/19/19 10:50 10/19/19 10:50 INR, PTT INR 1.05 (0.83-1.09) 10/17/19 18:47 Assessment/Plan Current Medications Generic Name Dose Route Start Last Admin Trade Name Freliz PRN Reason Stop Dose Admin Acetaminophen 650 mg 10/18/19 12:21 10/19/19 06:02 Tylenol Oral Solution - GT 650 mg Q6H PRN Administration PAIN Albuterol/Ipratropium 1 amp 10/18/19 08:00 10/19/19 08:32 Duoneb - NEB Not Given RQID [facility] Allopurinol 100 mg 10/18/19 10:00 10/19/19 09:36 Zyloprim - PEG 100 mg DAILY [facility] Administration Amlodipine Besylate 5 mg 10/18/19 10:00 10/19/19 10:31 Norvasc - PEG 5 mg DAILY [facility] Administration Ascorbic Acid 500 mg 10/18/19 13:00 10/19/19 09:36 Vitamin C Oral Solution - GT 500 mg DAILY [facility] Administration Atorvastatin Calcium 80 mg 10/18/19 22:00 10/18/19 22:36 Lipitor - PEG 80 mg HS [facility] Administration Cholecalciferol 1,000 unit 10/18/19 23:36 10/19/19 09:35 Vitamin D3 Oral Solution - GT 1,000 unit DAILY [facility] Administration Collagenase 1 applic 10/18/19 13:00 10/19/19 10:31 Santyl - TP 1 applic DAILY [facility] Administration Protocol Cyanocobalamin 1,000 mcg 10/18/19 10:00 10/19/19 09:36 Vitamin B12 - PO 1,000 mcg DAILY [facility] Administration Ferrous Sulfate 300 mg 10/18/19 12:30 10/19/19 09:35 Feosol GT 300 mg DAILY [facility] Administration Heparin Sodium (Porcine) 5,000 unit 10/18/19 22:15 10/19/19 09:36 Heparin - SQ 5,000 unit BID [facility] Administration Sodium Chloride 1,000 mls @ 100 mls/hr 10/18/19 01:30 10/19/19 06:02 1/2 Normal Saline IV 100 mls/hr ASDIR [facility] Administration Cefepime HCl 2 gm/ Dextrose 100 mls @ 100 mls/hr 10/19/19 02:00 10/19/19 09:34 IVPB 100 mls/hr Q8H-IV [facility] Administration Protocol Metronidazole 500 mg in 100 mls @ 100 mls/hr 10/18/19 18:30 10/19/19 10:30 Flagyl 500mg Premixed Ivpb - IVPB 100 mls/hr Q8H-IV [facility] Administration Insulin Aspart 1 vial 10/18/19 18:00 10/19/19 11:58 Novolog Vial Sliding Scale - SQ 8 units Q6HPO [facility] Administration Protocol Insulin Detemir 10 units 10/18/19 22:00 10/19/19 06:17 Levemir Vial SQ 10 units 0700,2200 [facility] Administration Levetiracetam 1,000 mg 10/18/19 12:30 10/19/19 09:35 Keppra Oral Solution - GT 1,000 mg BID [facility] Administration Multivitamins/Minerals 15 ml 10/18/19 12:30 10/19/19 09:36 Certavite-Antioxidant Liquid GT 15 ml DAILY [facility] Administration Nystatin 1 applic 10/18/19 12:30 10/19/19 10:31 Nystop Powder - TP 1 applic BID [facility] Administration Pantoprazole Sodium 40 mg 10/19/19 10:00 10/19/19 09:36 Protonix Iv IVPUSH 40 mg DAILY [facility] Administration Pneumococcal 13-Valent Conj Vacc 0.5 ml 10/18/19 13:47 Prevnar 13 Syringe - IM 10/18/19 13:48 .ONCE ONE Prednisone 5 mg 10/18/19 10:00 10/19/19 09:36 Deltasone - PEG 5 mg DAILY [facility] Administration Valproate Sodium 750 mg 10/18/19 14:00 10/19/19 06:02 Depakene - GT 750 mg TID [facility] Administration Impression 1. VESTA 2. DM 3. hypernatremia 4. resp failure 5. cva 6. copd 7. htn Plan - renal function improving - sodium improving - can start to decrease fluids - glucose control - hold hayder for now - steroids can contribute to elevated bun and to hyperglycemia
[2019-10-19] MEDS ORDERED: PNEUMOC 13-VAL CONJ-DIP CRM/PF 0.5 ML DISP.SYRIN IM ONE (16:30)
[2019-10-19] MEDS ORDERED: PT OWN MED DRAWER 7, Y5N ONE (17:00)
--- NOTE | 2019-10-19 18:25 | CONS ---
DATE OF CONSULTATION: 10/19/2019 PULMONARY CONSULTATION REFERRING PHYSICIAN: Hilario Bee MD. HISTORY OF PRESENT ILLNESS: The patient is a 69-year-old female known to me from previous hospitalization and office followup with past medical history of chronic obstructive pulmonary disease, ASHD status post CABG x2, [facility], secondary to massive CVA status post thrombectomy, respiratory failure status post tracheostomy and PEG, diabetes mellitus, COPD, diastolic heart failure, hypertension, hyperlipidemia, resident of [facility], transferred to [facility] on October 16 secondary to elevated BUN, creatinine, hypoglycemia. Patient was also noted in the ER to have leukocytosis and WBC of 17,000, also lactic acid was also elevated. UA was sent for the UTI, subsequently cultures came back positive for proteus. Blood cultures also returned positive and negative rods. Chest x-ray on admission revealed possible left lower lobe infiltrate and/or atelectasis. Patient placed on broad-spectrum antibiotics. The patient also was noted on admission to have a sacral wound, treated also with drainage. PAST MEDICAL HISTORY: Again includes status post CVA, status post thrombectomy on [facility], chronic respiratory failure status post CVA, status post tracheostomy and PEG, ASHD status post CABG, diabetes mellitus, COPD, diastolic heart failure, hypertension, hyperlipidemia, sacral decubitus, chronic kidney disease, diabetes and hypoparathyroidism. CURRENT MEDICATIONS: Include: 1. Prednisone. 2. Tylenol. 3. Cefepime. 4. Flagyl. 5. Heparin. 6. Keppra. 7. Valproic acid. 8. Allopurinol. 9. DuoNeb. 10. Norvasc. 11. Lipitor. 12. NovoLog. 13. Feosol. 14. Protonix. 15. Normal saline. 16. Santyl. 17. Pneumococcal vaccine. 18. Ascorbic acid. 19. Vitamin D3. REVIEW OF SYSTEMS: Unable to obtain. Patient is unresponsive. SOCIAL HISTORY: Positive history of tobacco use, quit greater than 30 years ago. No occupational exposure. PHYSICAL EXAMINATION: General: The patient is a well-developed, well-nourished female unresponsive on ventilatory support. Vital Signs: T-max is 101.5, currently 100.6. HEENT: Normocephalic, atraumatic. Neck: Supple. Tracheostomy patent. Heart: Regular S1, S2. Chest: Rhonchi. Abdomen: Soft, bowel sounds positive. Extremities: Lower extremity edema. LABORATORY: WBC is 11, hemoglobin 7.6, hematocrit 25.5, platelet count of 325,000. INR is 1.05. Venous blood gas 7.42, pCO2 of 45, pO2 of 40, bicarbonate of 29. Chemistries: BUN is 70, creatinine 0.9, lactate level is 3.0, albumin 1.4. Chest x-ray, poor inspiratory effort, questionable atelectasis, possible infiltrate left lower lobe. Blood cultures as noted earlier, positive gram-negative rods. Urine culture and sensitivity, positive proteus. IMPRESSION: Chronic respiratory failure status post cerebrovascular accident with thrombectomy, urosepsis, gram-negative bacteremia, questionable pneumonia left lower lobe , elevated lactate level, arteriosclerotic heart disease status post coronary artery bypass graft, chronic obstructive pulmonary disease, hypertension, hyperlipidemia, diastolic heart failure, sacral decubitus ulcer, acute kidney injury, anemia. PLAN: Continue AC mode, IV fluids, antibiotics as per infectious disease, trend lactate, monitor electrolytes, renal function, hemoglobin and hematocrit, obtain followup chest x-rays, local wound care. DIANNA DUKE M.D. [id number] MTDD
[2019-10-19] MEDS ORDERED: VANCOMYCIN 1 GRAM (PRE-DOCKED) 1,000 MG/250 ML BAG IVPB ONE (20:33)
--- NOTE | 2019-10-19 22:06 | PN ---
Progress Note, Physician History of Present Illness: Pt remains febrile today although wbc trending down. No change in mental status. - Current Medication List Current Medications: Active Medications Acetaminophen (Tylenol Oral Solution -) 650 mg GT Q6H PRN PRN Reason: PAIN Last Admin: 10/19/19 06:02 Dose: 650 mg Documented by: Albuterol/Ipratropium (Duoneb -) 1 amp NEB RQID MARIE Last Admin: 10/19/19 08:32 Dose: Not Given Documented by: Allopurinol (Zyloprim -) 100 mg PEG DAILY MARIE Last Admin: 10/19/19 09:36 Dose: 100 mg Documented by: Amlodipine Besylate (Norvasc -) 5 mg PEG DAILY MARIE Last Admin: 10/19/19 10:31 Dose: 5 mg Documented by: Ascorbic Acid (Vitamin C Oral Solution -) 500 mg GT DAILY MARIE Last Admin: 10/19/19 09:36 Dose: 500 mg Documented by: Atorvastatin Calcium (Lipitor -) 80 mg PEG HS [facility] Last Admin: 10/18/19 22:36 Dose: 80 mg Documented by: Cholecalciferol (Vitamin D3 Oral Solution -) 1,000 unit GT DAILY MARIE Last Admin: 10/19/19 09:35 Dose: 1,000 unit Documented by: Collagenase (Santyl -) 1 applic TP DAILY MARIE; Protocol Last Admin: 10/19/19 10:31 Dose: 1 applic Documented by: Cyanocobalamin (Vitamin B12 -) 1,000 mcg PO DAILY MARIE Last Admin: 10/19/19 09:36 Dose: 1,000 mcg Documented by: Ferrous Sulfate (Feosol) 300 mg GT DAILY MARIE Last Admin: 10/19/19 09:35 Dose: 300 mg Documented by: Heparin Sodium (Porcine) (Heparin -) 5,000 unit SQ BID MARIE Last Admin: 10/19/19 09:36 Dose: 5,000 unit Documented by: Cefepime HCl 2 gm/ Dextrose 100 mls @ 100 mls/hr IVPB Q8H-IV MARIE; Protocol Last Admin: 10/19/19 17:19 Dose: 100 mls/hr Documented by: Metronidazole (Flagyl 500mg Premixed Ivpb -) 500 mg in 100 mls @ 100 mls/hr IVPB Q8H-IV [facility]IE Last Admin: 10/19/19 17:54 Dose: 100 mls/hr Documented by: Sodium Chloride (1/2 Normal Saline) 1,000 mls @ 83 mls/hr IV ASDIR [facility] Last Admin: 10/19/19 14:10 Dose: 83 mls/hr Documented by: Vancomycin HCl (Vancomycin (Pre-Docked)) 1,000 mg in 250 mls @ 166.667 mls/hr IVPB ONCE ONE; Protocol Stop: 10/19/19 22:02 Insulin Aspart (Novolog Vial Sliding Scale -) 1 vial SQ Q6HPO [facility]; Protocol Last Admin: 10/19/19 17:52 Dose: 6 units Documented by: Insulin Detemir (Levemir Vial) 10 units SQ 0700,2200 [facility] Last Admin: 10/19/19 06:17 Dose: 10 units Documented by: Levetiracetam (Keppra Oral Solution -) 1,000 mg GT BID [facility] Last Admin: 10/19/19 09:35 Dose: 1,000 mg Documented by: Multivitamins/Minerals (Certavite-Antioxidant Liquid) 15 ml GT DAILY [facility] Last Admin: 10/19/19 09:36 Dose: 15 ml Documented by: Nystatin (Nystop Powder -) 1 applic TP BID [facility] Last Admin: 10/19/19 10:31 Dose: 1 applic Documented by: Pantoprazole Sodium (Protonix Iv) 40 mg IVPUSH DAILY [facility] Last Admin: 10/19/19 09:36 Dose: 40 mg Documented by: Prednisone (Deltasone -) 5 mg PEG DAILY [facility] Last Admin: 10/19/19 09:36 Dose: 5 mg Documented by: Valproate Sodium (Depakene -) 750 mg GT TID [facility] Last Admin: 10/19/19 14:11 Dose: 750 mg Documented by: - Objective Vital Signs: Vital Signs Temperature 99.7 F H 10/19/19 16:00 Pulse Rate 95 H 10/19/19 16:00 Respiratory Rate 20 10/19/19 20:00 Blood Pressure 136/65 10/19/19 16:00 O2 Sat by Pulse Oximetry (%) 98 10/19/19 20:00 Constitutional: Yes: No Distress Cardiovascular: Yes: Regular Rate and Rhythm Respiratory: Yes: Mechanically Ventilated Gastrointestinal: Yes: Normal Bowel Sounds, Soft, Abdomen, Obese Genitourinary: Yes: Robbins Present Wound/Incision: Yes: Dressing Dry and Intact Neurological: Yes: Unresponsive Labs: CBC, BMP 10/19/19 10:50 10/19/19 10:50 INR, PTT INR 1.05 (0.83-1.09) 10/17/19 18:47 Laboratory Last Values WBC 11.6 K/mm3 (4.0-10.0) H 10/19/19 10:50 RBC 3.50 M/mm3 (3.60-5.2) L 10/19/19 10:50 Hgb 7.6 GM/dL (10.7-15.3) L 10/19/19 10:50 Hct 25.5 % (32.4-45.2) L 10/19/19 10:50 MCV 72.8 fl (80-96) L 10/19/19 10:50 MCH 21.8 pg (25.7-33.7) L 10/19/19 10:50 MCHC 30.0 g/dl (32.0-36.0) L 10/19/19 10:50 RDW 18.0 % (11.6-15.6) H 10/19/19 10:50 Plt Count 325 K/MM3 (134-434) 10/19/19 10:50 MPV 9.0 fl (7.5-11.1) 10/19/19 10:50 Absolute Neuts (auto) 8.6 K/mm3 (1.5-8.0) H 10/19/19 10:50 Neutrophils % 74.2 % (42.8-82.8) 10/19/19 10:50 Lymphocytes % 16.6 % (8-40) D 10/19/19 10:50 Monocytes % 8.5 % (3.8-10.2) 10/19/19 10:50 Eosinophils % 0.5 % (0-4.5) 10/19/19 10:50 Basophils % 0.2 % (0-2.0) 10/19/19 10:50 Nucleated RBC % 0 % (0-0) 10/19/19 10:50 Hypochromia 2+ 10/17/19 18:47 Anisocytosis 2+ 10/17/19 18:47 Macrocytosis 2+ 10/17/19 18:47 Ovalocytes 1+ 10/17/19 18:47 PT with INR 12.40 SEC (9.7-13.0) 10/17/19 18:47 INR 1.05 (0.83-1.09) 10/17/19 18:47 PTT (Actin FS) 24.5 SECONDS (25.2-36.5) L 10/17/19 18:47 VBG pH 7.425 (7.310-7.410) H 10/17/19 18:40 POC VBG pCO2 45.2 mmHg (38-52) 10/17/19 18:40 POC VBG pO2 40.0 mmHg (28-48) 10/17/19 18:40 VBG HCO3 29.0 mmol/L (23-29) 10/17/19 18:40 VBG O2 Sat (Brice) 75.9 % (70-80) 10/17/19 18:40 VBG Base Excess 3.9 mmol/L (-2-2) H 10/17/19 18:40 Sodium 147 mmol/L (136-145) H 10/19/19 10:50 Potassium 4.1 mmol/L (3.5-5.1) 10/19/19 10:50 Chloride 112 mmol/L (98-107) H 10/19/19 10:50 Carbon Dioxide 28 mmol/L (21-32) 10/19/19 10:50 Anion Gap 6 MMOL/L (8-16) L 10/19/19 10:50 BUN 70.7 mg/dL (7-18) H 10/19/19 10:50 Creatinine 0.9 mg/dL (0.55-1.3) 10/19/19 10:50 Est GFR (CKD-EPI)AfAm 74.56 10/19/19 10:50 Est GFR (CKD-EPI)NonAf 64.33 10/19/19 10:50 POC Glucometer 313 UNITS (80-120) 10/19/19 17:47 Random Glucose 376 mg/dL (74-106) H 10/19/19 10:50 Hemoglobin A1c % 10.9 % (4.2-6.3) H 10/18/19 06:00 Lactic Acid 3.0 mmol/L (0.4-2.0) H* 10/19/19 10:58 Calcium 8.3 mg/dL (8.5-10.1) L 10/19/19 10:50 Iron 13 ug/dL (50-175) L 10/18/19 06:00 TIBC 145 ug/dL (250-450) L 10/18/19 06:00 Iron Saturation 8 % (17.5-39) L 10/18/19 06:00 Unsaturated IBC 132 ug/dL (200-275) L 10/18/19 06:00 Ferritin 636.2 ng/ml (8-388) H 10/18/19 06:00 Total Bilirubin 0.2 mg/dL (0.2-1) 10/19/19 10:50 AST 56 U/L (15-37) H 10/19/19 10:50 ALT 43 U/L (13-61) 10/19/19 10:50 Alkaline Phosphatase 69 U/L (45-117) 10/19/19 10:50 Troponin I < 0.02 ng/ml (0.00-0.05) 10/17/19 18:47 Total Protein 5.8 g/dl (6.4-8.2) L 10/19/19 10:50 Albumin 1.4 g/dl (3.4-5.0) L 10/19/19 10:50 Vitamin B12 > 2000 pg/ml (193-986) H 10/18/19 06:00 Beta-Hydroxybutyrate 1.9 mg/dL (0.2-2.8) 10/17/19 18:47 TSH 1.16 uIU/ml (0.358-3.74) 10/18/19 06:00 Free T4 0.98 ng/dl (0.76-1.46) 10/18/19 06:00 Urine Color Yellow 10/18/19 15:15 Urine Appearance Cloudy 10/18/19 15:15 Urine pH 5.0 (5.0-8.0) 10/18/19 15:15 Ur Specific [place] 1.020 (1.010-1.035) 10/18/19 15:15 Urine Protein 1+ (NEGATIVE) H 10/18/19 15:15 Urine Glucose (UA) Negative (NEGATIVE) 10/18/19 15:15 Urine Ketones Negative (NEGATIVE) 10/18/19 15:15 Urine Blood 3+ (NEGATIVE) H 10/18/19 15:15 Urine Nitrite Negative (NEGATIVE) 10/18/19 15:15 Urine Bilirubin Negative (NEGATIVE) 10/18/19 15:15 Urine Urobilinogen 0.2 mg/dL (0.2-1.0) 10/18/19 15:15 Ur Leukocyte Esterase 1+ (NEGATIVE) H 10/18/19 15:15 Urine WBC (Auto) 24 /uL (0-25.8) 10/18/19 15:15 Urine RBC (Auto) 196 /uL (0-23.9) 10/18/19 15:15 Urine Casts (Auto) 21 /uL (0-3.1) 10/18/19 15:15 U Pathogenic Cast Auto None /lpf (NEGATIVE) 10/18/19 15:15 U Epithel Cells (Auto) >36 /uL (0-25.1) 10/18/19 15:15 U Sm Round Cell (Auto) None 10/18/19 15:15 Urine Bacteria (Auto) 9 /uL (0-1359) 10/18/19 15:15 Ur Random Creatinine 45.0 mg/dL (30-150) 10/18/19 15:15 Ur Random Sodium < 18 MMOL/L (40-220) L 10/18/19 15:15 Ur Random Potassium 26.0 MMOL/L (25-125) 10/18/19 15:15 Ur Random Chloride < 11 MMOL/L (110-250) L 10/18/19 15:15 Stool Occult Blood Negative (NEGATIVE) 10/18/19 15:15 Random Vancomycin 5.8 ug/ml (5-26) 10/19/19 17:50 COVID-19 (KADEN) Not detected (Not Detected) 10/17/19 19:57 Microbiology 10/18/19 18:10 Stool Clostridioides difficile Antigen - Final 10/18/19 18:10 Stool Clostridioides difficile Toxin Assay - Final 10/18/19 18:10 Sputum - Endotrachea Suction/Ventilator Gram Stain - Final 10/18/19 23:00 Decubiti Gram Stain - Final 10/17/19 18:40 Blood - Peripheral Venous Blood Culture - Preliminary Non Lactose Fermenting Gnb 10/17/19 18:40 Blood - Peripheral Venous Blood Culture - Preliminary Proteus Species 10/18/19 03:30 Urine - Urine Robbins Urine Culture - Preliminary Proteus Species 10/17/19 20:36 Urine - Urine - Catheterized Urine Culture - Preliminary Non Lactose Fermenting Gnb Problem List - Problems (1) Gram-negative bacteremia Code(s): R78.81 - BACTEREMIA (2) History of CVA (cerebrovascular accident) Code(s): Z86.73 - PRSNL HX OF TIA (TIA), AND CEREB INFRC W/O RESID DEFICITS (3) CAD (coronary artery disease) Code(s): I25.10 - ATHSCL HEART DISEASE OF [place] CORONARY ARTERY W/O ANG PCTRS (4) Diarrhea Code(s): R19.7 - DIARRHEA, UNSPECIFIED (5) VESTA (acute kidney injury) Code(s): N17.9 - ACUTE KIDNEY FAILURE, UNSPECIFIED (6) Pneumonia Code(s): J18.9 - PNEUMONIA, UNSPECIFIED ORGANISM Qualifiers: Pneumonia type: due to unspecified organism Laterality: unspecified laterality Lung location: unspecified part of lung Qualified Code(s): J18.9 - Pneumonia, unspecified organism (7) Obese Code(s): E66.9 - OBESITY, UNSPECIFIED Qualifiers: Body mass index: BMI 60.0-69.9 (8) UTI (urinary tract infection) Code(s): N39.0 - URINARY TRACT INFECTION, SITE NOT SPECIFIED Qualifiers: Urinary tract infection type: site unspecified Hematuria presence: with hematuria Qualified Code(s): N39.0 - Urinary tract infection, site not specified; R31.9 - Hematuria, unspecified (9) Diabetes Code(s): E11.9 - TYPE 2 DIABETES MELLITUS WITHOUT COMPLICATIONS (10) HTN (hypertension) Code(s): I10 - ESSENTIAL (PRIMARY) HYPERTENSION (11) Hyperlipidemia Code(s): E78.5 - HYPERLIPIDEMIA, UNSPECIFIED (12) S/P CABG (coronary artery bypass graft) Code(s): Z95.1 - PRESENCE OF AORTOCORONARY BYPASS GRAFT (13) COPD (chronic obstructive pulmonary disease) Code(s): J44.9 - CHRONIC OBSTRUCTIVE PULMONARY DISEASE, UNSPECIFIED Assessment/Plan Sepsis Gram negative UTI with bacteremia Possible HCAP vs VAP Diarrhea Polymicrobial Sacral DU infection Chronic respiratory failure s/p trach/MV Acute kidney injury Uncontrolled DM Morbid obesity Hx of CVA s/p thrombectomy CAD s/p CABG x 2 COPD Diastolic CHF HTN HLD -- Continue Cefepime/Flagyl IV. Vancomycin level noted - 1 dose ordered. Repeat level in a.m. -- follow up blood/urine/wound/sputum culture results -- stool for Cdif negative -- wound care/frequent turning -- repeat lactic acid -- Covid-19 negative -- renal function improving, continue monitor -- monitor temp trend, vitals closely
[2019-10-19] MEDS: ATORVASTATIN CA 80 MG TABLET (FP) PEG SCH (22:11)
--- NOTE | 2019-10-19 22:18 | CON.NEURO ---
Consult - History of Present Illness History of Present Illness: 69 year old female with past medical history of diastolic congestive heart failure, coronary artery disease status post CABG x2, moderate-severe aortic reg urgitation, moderate pulmonary HTN, ?hyperparathyroidism, obesity,COPD, IDDM, HTN, HLD, CVA s/p thrombectomy 09/2019 at [facility] with respiratory failure s/p tracheostomy and PEG tube who was sent from [facility] for hyperglycemia and "dehydration". Per NM, blood sugar was in the 400's and BUN 111/creatinine 1.6. and had a normal kidney function in the past. ER course notable for Community Acquired PNA, UTI , Hypernatremia/VESTA secondary to Dehydration and Hyperglycemia, +blood cultures , +UTI . 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 Cardio/Vascular: Yes: CAD, HTN, Hyperlipdemia Pulmonary: Yes: COPD Renal/: Yes: Renal Inusuff Infectious Disease: Yes: Other (oral abscess) Psych: Yes: Anxiety, Depression Musculoskeletal: Yes: Osteoarthritis Rheumatology: Yes: Gout Endocrine: Yes: Diabetes Mellitus, Hyperparathyroidism - Past Surgical History Past Surgical History: Yes: CABG Additional Surgical History: thrombectomy - Alcohol/Substance Use Hx Alcohol Use: No History of Substance Use: reports: None - Smoking History Smoking history: Unknown if ever smoked Have you smoked in the past 12 months: No Aproximately how many cigarettes per day: 0 If you are a former smoker, when did you quit?: about 30 years ago - Social History ADL: Independent History of Recent Travel: No Home Medications - Allergies Allergies/Adverse Reactions: Allergies Allergy/AdvReac Type Severity Reaction Status Date / Time aspirin Allergy Verified 10/17/19 17:51 Penicillins Allergy Hives Verified 10/17/19 17:51 codeine [Codeine] AdvReac HALLUCINATIONS, Verified 10/17/19 17:51 DROWSY morphine AdvReac HALLUCINATI Verified 10/17/19 17:51 ONS - Home Medications Home Medications: Ambulatory Orders Albuterol Sulfate [Proair Hfa -] 1 inh PO ASDIR PRN 90 Days hfa.aer.ad 05/17/15 Budesonide/Formeterol Fumarate [SYMBICORT 80/4.5mcg -] 2 inh IH BID 90 Days inhaler 05/17/15 Cholecalciferol (Vitamin D3) [Vitamin D3] 1,000 unit PO DAILY 01/18/17 Duloxetine HCl [Cymbalta] 30 mg PO AM 01/18/17 Gabapentin 400 mg PO TID PRN 01/18/17 Nitroglycerin [Nitrostat] 0.4 mg SL PRN 01/18/17 Pravastatin Sodium [Pravachol] 40 mg PO HS 01/18/17 Albuterol 2.5/Ipratropium 0.5 [Duoneb -] 1 neb IH QID 7 Days #30 vial.neb. 03/03/19 Albuterol 0.083% Nebulizer Sil [Ventolin 0.083% Nebulizer Soln -] 1 neb NEB Q4H PRN #30 vial 03/04/19 Cyanocobalamin [Vitamin B12 -] 1,000 mcg PO DAILY 08/23/19 Fluticasone Prop 0.05% Nasal [Flonase -] 1 - 2 spray NS BID 08/23/19 Isosorbide Mononitrate [Isosorbide Mononitrate ER] 60 mg PO DAILY 08/23/19 Lisinopril [Prinivil] 20 mg PO DAILY 08/23/19 Metoprolol Succinate [Toprol XL -] 25 mg PO AM 08/23/19 Pramipexole Di-HCl [Pramipexole ER] 0.5 mg PO TID 08/23/19 Torsemide 20 mg PO AM 08/23/19 Allopurinol [Zyloprim -] 100 mg PO DAILY #30 tablet 08/31/19 Amlodipine Besylate [Norvasc -] 5 mg PO DAILY #30 tablet 08/31/19 metFORMIN HCL [Glucophage -] 500 mg PO BID@0700,1630 tablet 08/31/19 predniSONE [Deltasone -] 5 mg PO DAILY #20 tablet 08/31/19 Physical Exam-Neuro Vital Signs: Vital Signs Temperature 99.7 F H 10/19/19 16:00 Pulse Rate 95 H 10/19/19 16:00 Respiratory Rate 20 10/19/19 20:00 Blood Pressure 136/65 10/19/19 16:00 O2 Sat by Pulse Oximetry (%) 98 10/19/19 20:00 Labs: CBC, BMP 10/19/19 10:50 10/19/19 10:50 INR, PTT INR 1.05 (0.83-1.09) 10/17/19 18:47 - Neuro Exam Level Of Consciousness: Yes: Obtunded (eyes closed, no nystgamus, R head deformity, no twitching, no response to verbal to tactile stim , reflexes mute ) Problem List - Problems (1) VESTA (acute kidney injury) Code(s): N17.9 - ACUTE KIDNEY FAILURE, UNSPECIFIED (2) Bacteremia Code(s): R78.81 - BACTEREMIA (3) COPD (chronic obstructive pulmonary disease) Code(s): J44.9 - CHRONIC OBSTRUCTIVE PULMONARY DISEASE, UNSPECIFIED (4) Chronic respiratory failure Code(s): J96.10 - CHRONIC RESPIRATORY FAILURE, UNSP W HYPOXIA OR HYPERCAPNIA (5) History of CVA (cerebrovascular accident) Code(s): Z86.73 - PRSNL HX OF TIA (TIA), AND CEREB INFRC W/O RESID DEFICITS (6) Metabolic encephalopathy Code(s): G93.41 - METABOLIC ENCEPHALOPATHY Assessment/Plan 69 year old female with past medical history of diastolic congestive heart failure, coronary artery disease status post CABG x2, moderate-severe aortic regurgitation, moderate pulmonary HTN, ?hyperparathyroidism, obesity,COPD, IDDM, HTN, HLD, CVA s/p thrombectomy 09/2019 at [facility] with respiratory failure s/p tracheostomy and PEG tube who was sent from [facility] for hyperglycemia and "dehydration". Per NM, blood sugar was in the 400's and BUN 111/creatinine 1.6. and had a normal kidney function in the past. ER course notable for Community Acquired PNA, UTI , Hypernatremia/VESTA secondary to Dehydration and Hyperglycemia, +blood cultures , +UTI . Acute Kidney Injury/hypernatremia - sodium 150 BUN 113.6, creatinine 1.4 Hyperglycemia - called for R twitching , pt unresponsive, and Right head deformity--unable to gather further HX was started on keppra 1000BID AP : severe metabolic /infectious encephalopathy, with likely fixed deficits given brain surgery /thrombectomy ( ?) -- + sepsis, UTI, PNA and multiple metabolic ABNL possible seizure though no events noted on todays eval agree with keppra 1000 BID , watch renal status; CTA and CT on 09/03/19 reviewed--R MCA stenosis/infarct at that time , with 50-% R carotid disease can get repeat HD CT though she has multiple reasons for being altered at this juncture poor prognosis given acute on chronic comorbidities DR JENSEN
[2019-10-20] MEDS ORDERED: PT OWN MED DRAWER 7, Y5N ONE ×3 (01:53→10:51)
[2019-10-20] MEDS: CEFEPIME 2 GM in DEXTROSE 5%-WATER 100 ML IVPB SCH ×2 (02:56→10:48)
[2019-10-20] MEDS: VALPROATE SODIUM 250 MG/5 ML UNIT DOSE CUP GT SCH ×3 (06:05→22:10)
[2019-10-20] MEDS: INSULIN (LEVEMIR) 100 UNITS/ML UNITS SQ SCH ×2 (06:05→22:10)
[2019-10-20] MEDS: INSULIN SLIDING SCALE (NOVOLOG) 1 VIAL SQ SCH ×4 (06:06→23:15)
[2019-10-20] MEDS: ACETAMINOPHEN 650 MG/20.3 ML ORAL SOLUTION (CUPS) GT PRN ×3 (06:32→23:14)
[2019-10-20] MEDS: SODIUM CHLORIDE 0.45% 1,000 ML IV SCH ×2 (08:14→17:03)
[2019-10-20] MEDS: ALBUTEROL SO4 2.5/IPRATROPIUM 0.5 INH SOL 3 ML VIAL.NEB. NEB SCH ×4 (08:47→21:35)
[2019-10-20 08:49] LABS: BASO % 0.2 % (0-2.0); EOS % 0.8 % (0-4.5); HEMATOCRIT 25.8 % (32.4-45.2); HEMOGLOBIN 7.7 GM/dL (10.7-15.3); LYMPH % 17.9 % (8-40); MCH 21.7 pg (25.7-33.7); MCHC 29.9 g/dl (32.0-36.0); MEAN CELL VOLUME 72.6 fl (80-96); MEAN PLT VOLUME 8.9 fl (7.5-11.1); MONO % 8.9 % (3.8-10.2); NEUT % 72.2 % (42.8-82.8); PLATELET COUNT 332 K/MM3 (134-434); RBC 3.55 M/mm3 (3.60-5.2); RDW 18.4 % (11.6-15.6); WHITE BLOOD COUNT 11.5 K/mm3 (4.0-10.0)
[2019-10-20 09:16] LABS: ALBUMIN 1.4 g/dl (3.4-5.0); BILIRUBIN,TOTAL 0.2 mg/dL (0.2-1); CALCIUM 8.6 mg/dL (8.5-10.1); CREATININE 0.6 mg/dL (0.55-1.3); POTASSIUM 4.5 mmol/L (3.5-5.1)
[2019-10-20 09:20] LABS: BLOOD UREA NITROGEN 33.4 mg/dL (7-18)
[2019-10-20] MEDS: COLLAGENASE CLOSTRIDIUM HIST. 30 GRAMS TUBE TP SCH (10:47)
[2019-10-20] MEDS: PANTOPRAZOLE SODIUM 40 MG VIAL IVPUSH SCH (10:48)
[2019-10-20] MEDS: FERROUS SO4 300 MG/5 ML ORAL SOLN UNIT DOSE CUPS GT SCH (10:48)
[2019-10-20] MEDS: HEPARIN NA (PORCINE) 5,000 UNITS/ML 1ML VIAL SQ SCH ×2 (10:48→22:10)
[2019-10-20] MEDS: levETIRAcetam 500 MG/5 ML ORAL SOLUTION (UNIT-DOSE CUPS) GT SCH ×2 (10:48→22:10)
[2019-10-20] MEDS: amLODIPine BESYLATE 5 MG TABLET (FP) PEG SCH (10:49)
[2019-10-20] MEDS: CYANOCOBALAMIN 1,000 MCG TABLET (FP) PEG SCH (10:49)
[2019-10-20] MEDS: ALLOPURINOL 100 MG TABLET (FP) PEG SCH (10:49)
[2019-10-20] MEDS: MULTIVIT-MINERALS ORAL LIQUID GT SCH (10:49)
[2019-10-20] MEDS: CHOLECALCIFEROL (VIT D3) 1,000 UNIT (25 MCG) TABLET GT SCH (10:49)
[2019-10-20] MEDS: ASCORBIC ACID 500 MG/5 ML UNIT DOSE CUP GT SCH (10:49)
[2019-10-20] MEDS: NYSTATIN POWDER 100,000 UNITS/GM - 15 GM TOPICAL POWDER TP SCH ×2 (10:50→22:22)
[2019-10-20] MEDS: predniSONE 5 MG TABLET (UD) PEG SCH (10:51)
--- NOTE | 2019-10-20 11:57 | PN ---
Progress Note, Physician - Current Medication List Current Medications: Active Medications Acetaminophen (Tylenol Oral Solution -) 650 mg GT Q6H PRN PRN Reason: PAIN Last Admin: 10/20/19 06:32 Dose: 650 mg Documented by: Albuterol/Ipratropium (Duoneb -) 1 amp NEB RQID MARIE Last Admin: 10/20/19 11:54 Dose: 1 amp Documented by: Allopurinol (Zyloprim -) 100 mg PEG DAILY [facility] Last Admin: 10/20/19 10:49 Dose: 100 mg Documented by: Amlodipine Besylate (Norvasc -) 5 mg PEG DAILY [facility] Last Admin: 10/20/19 10:49 Dose: 5 mg Documented by: Ascorbic Acid (Vitamin C Oral Solution -) 500 mg GT DAILY [facility] Last Admin: 10/20/19 10:49 Dose: 500 mg Documented by: Atorvastatin Calcium (Lipitor -) 80 mg PEG HS [facility]IE Last Admin: 10/19/19 22:11 Dose: 80 mg Documented by: Cholecalciferol (Vitamin D3 -) 1,000 unit GT DAILY [facility] Last Admin: 10/20/19 10:49 Dose: 1,000 unit Documented by: Collagenase (Santyl -) 1 applic TP DAILY MARIE; Protocol Last Admin: 10/20/19 10:47 Dose: 1 applic Documented by: Cyanocobalamin (Vitamin B12 -) 1,000 mcg PEG DAILY [facility] Last Admin: 10/20/19 10:49 Dose: 1,000 mcg Documented by: Ferrous Sulfate (Feosol) 300 mg GT DAILY [facility] Last Admin: 10/20/19 10:48 Dose: 300 mg Documented by: Heparin Sodium (Porcine) (Heparin -) 5,000 unit SQ BID [facility]IE Last Admin: 10/20/19 10:48 Dose: 5,000 unit Documented by: Cefepime HCl 2 gm/ Dextrose 100 mls @ 100 mls/hr IVPB Q8H-IV MARIE; Protocol Last Admin: 10/20/19 10:48 Dose: 100 mls/hr Documented by: Metronidazole (Flagyl 500mg Premixed Ivpb -) 500 mg in 100 mls @ 100 mls/hr IVPB Q8H-IV MARIE Last Admin: 10/20/19 10:48 Dose: 100 mls/hr Documented by: Sodium Chloride (1/2 Normal Saline) 1,000 mls @ 83 mls/hr IV ASDIR [facility] Last Admin: 10/20/19 08:14 Dose: 83 mls/hr Documented by: Insulin Aspart (Novolog Vial Sliding Scale -) 1 vial SQ Q6HPO [facility]; Protocol Last Admin: 10/20/19 11:12 Dose: 4 units Documented by: Insulin Detemir (Levemir Vial) 10 units SQ 0700,2200 [facility] Last Admin: 10/20/19 06:05 Dose: 10 units Documented by: Levetiracetam (Keppra Oral Solution -) 1,000 mg GT BID [facility] Last Admin: 10/20/19 10:48 Dose: 1,000 mg Documented by: Multivitamins/Minerals (Certavite-Antioxidant Liquid) 15 ml GT DAILY [facility] Last Admin: 10/20/19 10:49 Dose: 15 ml Documented by: Nystatin (Nystop Powder -) 1 applic TP BID [facility] Last Admin: 10/20/19 10:50 Dose: 1 applic Documented by: Pantoprazole Sodium (Protonix Iv) 40 mg IVPUSH DAILY [facility] Last Admin: 10/20/19 10:48 Dose: 40 mg Documented by: Prednisone (Deltasone -) 5 mg PEG DAILY [facility] Last Admin: 10/20/19 10:51 Dose: 5 mg Documented by: Valproate Sodium (Depakene -) 750 mg GT TID [facility] Last Admin: 10/20/19 06:05 Dose: 750 mg Documented by: - Objective Vital Signs: Vital Signs Temperature 101 F H 10/20/19 06:00 Pulse Rate 86 10/20/19 06:00 Respiratory Rate 21 H 10/20/19 08:48 Blood Pressure 127/54 L 10/20/19 06:00 O2 Sat by Pulse Oximetry (%) 99 10/20/19 08:48 Cardiovascular: Yes: S1, S2 Respiratory: Yes: Mechanically Ventilated Gastrointestinal: Yes: Normal Bowel Sounds, Soft Neurological: Yes: Unresponsive Labs: CBC, BMP 10/20/19 07:40 10/20/19 07:40 INR, PTT INR 1.05 (0.83-1.09) 10/17/19 18:47 Assessment/Plan - Problems (1) Metabolic encephalopathy Assessment/Plan: -BC+ -UC pending -ID consult -IV abx as per ID Problems reviewed: Yes Code(s): G93.41 - METABOLIC ENCEPHALOPATHY (2) VESTA (acute kidney injury) Assessment/Plan: -Nephrology consult -Gentle IVF -Monitor trend Problems reviewed: Yes Code(s): N17.9 - ACUTE KIDNEY FAILURE, UNSPECIFIED (3) Acute hypercapnic respiratory failure Assessment/Plan: -Pulmonary consult -Mech vent -Not a candidate for weaning at this time Problems reviewed: Yes Code(s): J96.02 - ACUTE RESPIRATORY FAILURE WITH HYPERCAPNIA (4) Diabetes Assessment/Plan: -BGM Q6H -Check A1c -ISS -Levemir 10 U BID -Endocrine consult Problems reviewed: Yes Code(s): E11.9 - TYPE 2 DIABETES MELLITUS WITHOUT COMPLICATIONS (5) Bacteremia Assessment/Plan: -ID consult -Afebrile -Monitor labs -IV abx - Microbiology 10/17/19 18:40 Blood - Peripheral Venous Blood Culture - Preliminary Non Lactose Fermenting Gnb 10/17/19 18:40 Blood - Peripheral Venous Blood Culture - Preliminary Proteus Species 10/18/19 03:30 Urine - Urine Robbins Urine Culture - Preliminary Proteus Species 10/17/19 20:36 Urine - Urine - Catheterized Urine Culture - Preliminary Non Lactose Fermenting Gnb Problems reviewed: Yes Code(s): R78.81 - BACTEREMIA (6) Pneumonia Assessment/Plan: -CXR LLL infiltrate -ID consult -Pulmonary consult -COVID 19 pending Problems reviewed: Yes Code(s): J18.9 - PNEUMONIA, UNSPECIFIED ORGANISM Qualifiers: Pneumonia type: due to unspecified organism Laterality: unspecified laterality Lung location: unspecified part of lung Qualified Code(s): J18.9 - Pneumonia, unspecified organism (7) Anemia Assessment/Plan: -Monitor
[2019-10-20] MEDS ORDERED: VANCOMYCIN 1,000 MG in DEXTROSE 5%-WATER - 250 ML IVPB SCH (13:00)
[2019-10-20] MEDS: VANCOMYCIN 1 GRAM (PRE-DOCKED) 1 GM/250 ML BAG IVPB SCH (14:08)
--- NOTE | 2019-10-20 14:31 | PN ---
Progress Note (short form) - Note Progress Note: 1. VESTA 2. DM 3. hypernatremia 4. resp failure 5. cva 6. copd 7. htn Active Medications Acetaminophen (Tylenol Oral Solution -) 650 mg GT Q6H PRN PRN Reason: PAIN Last Admin: 10/20/19 14:07 Dose: 650 mg Documented by: Albuterol/Ipratropium (Duoneb -) 1 amp NEB RQID [facility] Last Admin: 10/20/19 11:54 Dose: 1 amp Documented by: Allopurinol (Zyloprim -) 100 mg PEG DAILY [facility] Last Admin: 10/20/19 10:49 Dose: 100 mg Documented by: Amlodipine Besylate (Norvasc -) 5 mg PEG DAILY [facility] Last Admin: 10/20/19 10:49 Dose: 5 mg Documented by: Ascorbic Acid (Vitamin C Oral Solution -) 500 mg GT DAILY [facility] Last Admin: 10/20/19 10:49 Dose: 500 mg Documented by: Atorvastatin Calcium (Lipitor -) 80 mg PEG HS [facility] Last Admin: 10/19/19 22:11 Dose: 80 mg Documented by: Cholecalciferol (Vitamin D3 -) 1,000 unit GT DAILY [facility] Last Admin: 10/20/19 10:49 Dose: 1,000 unit Documented by: Collagenase (Santyl -) 1 applic TP DAILY [facility]; Protocol Last Admin: 10/20/19 10:47 Dose: 1 applic Documented by: Cyanocobalamin (Vitamin B12 -) 1,000 mcg PEG DAILY [facility] Last Admin: 10/20/19 10:49 Dose: 1,000 mcg Documented by: Ferrous Sulfate (Feosol) 300 mg GT DAILY [facility] Last Admin: 10/20/19 10:48 Dose: 300 mg Documented by: Heparin Sodium (Porcine) (Heparin -) 5,000 unit SQ BID [facility] Last Admin: 10/20/19 10:48 Dose: 5,000 unit Documented by: Cefepime HCl 2 gm/ Dextrose 100 mls @ 100 mls/hr IVPB Q8H-IV [facility]; Protocol Last Admin: 10/20/19 10:48 Dose: 100 mls/hr Documented by: Metronidazole (Flagyl 500mg Premixed Ivpb -) 500 mg in 100 mls @ 100 mls/hr IVPB Q8H-IV [facility] Last Admin: 10/20/19 10:48 Dose: 100 mls/hr Documented by: Sodium Chloride (1/2 Normal Saline) 1,000 mls @ 83 mls/hr IV ASDIR [facility] Last Admin: 10/20/19 08:14 Dose: 83 mls/hr Documented by: Vancomycin HCl (Vancomycin (Pre-Docked)) 1 gm in 250 mls @ 166.667 mls/hr IVPB 0100,1300 [facility]; Protocol Last Admin: 10/20/19 14:08 Dose: 166.667 mls/hr Documented by: Insulin Aspart (Novolog Vial Sliding Scale -) 1 vial SQ Q6HPO [facility]; Protocol Last Admin: 10/20/19 11:12 Dose: 4 units Documented by: Insulin Detemir (Levemir Vial) 10 units SQ 0700,2200 [facility] Last Admin: 10/20/19 06:05 Dose: 10 units Documented by: Levetiracetam (Keppra Oral Solution -) 1,000 mg GT BID [facility] Last Admin: 10/20/19 10:48 Dose: 1,000 mg Documented by: Multivitamins/Minerals (Certavite-Antioxidant Liquid) 15 ml GT DAILY [facility] Last Admin: 10/20/19 10:49 Dose: 15 ml Documented by: Nystatin (Nystop Powder -) 1 applic TP BID [facility] Last Admin: 10/20/19 10:50 Dose: 1 applic Documented by: Pantoprazole Sodium (Protonix Iv) 40 mg IVPUSH DAILY [facility] Last Admin: 10/20/19 10:48 Dose: 40 mg Documented by: Prednisone (Deltasone -) 5 mg PEG DAILY [facility] Last Admin: 10/20/19 10:51 Dose: 5 mg Documented by: Valproate Sodium (Depakene -) 750 mg GT TID [facility] Last Admin: 10/20/19 14:07 Dose: 750 mg Documented by: Last Vital Signs Temp Pulse Resp BP Pulse Ox 99 F 84 25 H 130/52 L 99 10/20/19 10:45 10/20/19 10:45 10/20/19 12:10 10/20/19 10:45 10/20/19 12:10 CBC, BMP 10/20/19 07:40 10/20/19 07:40 VESTA improved on fluids Hypernatremia- needs free water Plan continue to monitor labs replace free water
--- NOTE | 2019-10-20 14:31 | PN ---
Progress Note (short form) - Note Progress Note: Unresponsive on AC mode of vent. NAD. No acute events overnight. Intake & Output 10/17/19 10/18/19 10/19/19 10/20/19 23:59 23:59 23:59 23:59 Intake Total 1500 3725 Output Total 80 750 2200 900 Balance -80 750 1525 -900 Weight 192 lb 180 lb 185 lb 9.6 oz 190 lb 6.4 oz Last Vital Signs Temp Pulse Resp BP Pulse Ox 99 F 84 25 H 130/52 L 99 10/20/19 10:45 10/20/19 10:45 10/20/19 12:10 10/20/19 10:45 10/20/19 12:10 Active Medications Acetaminophen (Tylenol Oral Solution -) 650 mg GT Q6H PRN PRN Reason: PAIN Last Admin: 10/20/19 14:07 Dose: 650 mg Documented by: Albuterol/Ipratropium (Duoneb -) 1 amp NEB RQID [facility] Last Admin: 10/20/19 11:54 Dose: 1 amp Documented by: Allopurinol (Zyloprim -) 100 mg PEG DAILY [facility] Last Admin: 10/20/19 10:49 Dose: 100 mg Documented by: Amlodipine Besylate (Norvasc -) 5 mg PEG DAILY [facility] Last Admin: 10/20/19 10:49 Dose: 5 mg Documented by: Ascorbic Acid (Vitamin C Oral Solution -) 500 mg GT DAILY [facility] Last Admin: 10/20/19 10:49 Dose: 500 mg Documented by: Atorvastatin Calcium (Lipitor -) 80 mg PEG HS [facility] Last Admin: 10/19/19 22:11 Dose: 80 mg Documented by: Cholecalciferol (Vitamin D3 -) 1,000 unit GT DAILY [facility] Last Admin: 10/20/19 10:49 Dose: 1,000 unit Documented by: Collagenase (Santyl -) 1 applic TP DAILY [facility]; Protocol Last Admin: 10/20/19 10:47 Dose: 1 applic Documented by: Cyanocobalamin (Vitamin B12 -) 1,000 mcg PEG DAILY [facility] Last Admin: 10/20/19 10:49 Dose: 1,000 mcg Documented by: Ferrous Sulfate (Feosol) 300 mg GT DAILY [facility] Last Admin: 10/20/19 10:48 Dose: 300 mg Documented by: Heparin Sodium (Porcine) (Heparin -) 5,000 unit SQ BID [facility] Last Admin: 10/20/19 10:48 Dose: 5,000 unit Documented by: Cefepime HCl 2 gm/ Dextrose 100 mls @ 100 mls/hr IVPB Q8H-IV [facility]; Protocol Last Admin: 10/20/19 10:48 Dose: 100 mls/hr Documented by: Metronidazole (Flagyl 500mg Premixed Ivpb -) 500 mg in 100 mls @ 100 mls/hr IVPB Q8H-IV [facility] Last Admin: 10/20/19 10:48 Dose: 100 mls/hr Documented by: Sodium Chloride (1/2 Normal Saline) 1,000 mls @ 83 mls/hr IV ASDIR [facility] Last Admin: 10/20/19 08:14 Dose: 83 mls/hr Documented by: Vancomycin HCl (Vancomycin (Pre-Docked)) 1 gm in 250 mls @ 166.667 mls/hr IVPB 0100,1300 [facility]; Protocol Last Admin: 10/20/19 14:08 Dose: 166.667 mls/hr Documented by: Insulin Aspart (Novolog Vial Sliding Scale -) 1 vial SQ Q6HPO [facility]; Protocol Last Admin: 10/20/19 11:12 Dose: 4 units Documented by: Insulin Detemir (Levemir Vial) 10 units SQ 0700,2200 [facility] Last Admin: 10/20/19 06:05 Dose: 10 units Documented by: Levetiracetam (Keppra Oral Solution -) 1,000 mg GT BID [facility] Last Admin: 10/20/19 10:48 Dose: 1,000 mg Documented by: Multivitamins/Minerals (Certavite-Antioxidant Liquid) 15 ml GT DAILY [facility] Last Admin: 10/20/19 10:49 Dose: 15 ml Documented by: Nystatin (Nystop Powder -) 1 applic TP BID [facility] Last Admin: 10/20/19 10:50 Dose: 1 applic Documented by: Pantoprazole Sodium (Protonix Iv) 40 mg IVPUSH DAILY [facility] Last Admin: 10/20/19 10:48 Dose: 40 mg Documented by: Prednisone (Deltasone -) 5 mg PEG DAILY [facility] Last Admin: 10/20/19 10:51 Dose: 5 mg Documented by: Valproate Sodium (Depakene -) 750 mg GT TID [facility] Last Admin: 10/20/19 14:07 Dose: 750 mg Documented by: Cardiovascular: Yes: S1, S2 Respiratory: Yes: Mechanically Ventilated Gastrointestinal: Yes: Normal Bowel Sounds, Soft Neurological: Yes: Unresponsive Labs: Laboratory Results - last 24 hr 10/17/19 10/19/19 10/19/19 19:57 17:47 17:50 WBC RBC Hgb Hct MCV MCH MCHC RDW Plt Count MPV Absolute Neuts (auto) Neutrophils % Lymphocytes % Monocytes % Eosinophils % Basophils % Nucleated RBC % Sodium Potassium Chloride Carbon Dioxide Anion Gap BUN Creatinine Est GFR (CKD-EPI)AfAm Est GFR (CKD-EPI)NonAf POC Glucometer 313 Random Glucose Lactic Acid Calcium Total Bilirubin AST ALT Alkaline Phosphatase Total Protein Albumin Random Vancomycin 5.8 COVID-19 ([facility]) Not detected 10/19/19 10/19/19 10/20/19 22:10 23:21 06:04 WBC RBC Hgb Hct MCV MCH MCHC RDW Plt Count MPV Absolute Neuts (auto) Neutrophils % Lymphocytes % Monocytes % Eosinophils % Basophils % Nucleated RBC % Sodium Potassium Chloride Carbon Dioxide Anion Gap BUN Creatinine Est GFR (CKD-EPI)AfAm Est GFR (CKD-EPI)NonAf POC Glucometer 351 328 318 Random Glucose Lactic Acid Calcium Total Bilirubin AST ALT Alkaline Phosphatase Total Protein Albumin Random Vancomycin COVID-19 (KADEN) 10/20/19 10/20/19 10/20/19 07:40 07:40 07:40 WBC 11.5 H RBC 3.55 L Hgb 7.7 L Hct 25.8 L MCV 72.6 L MCH 21.7 L MCHC 29.9 L RDW 18.4 H Plt Count 332 MPV 8.9 Absolute Neuts (auto) 8.3 H Neutrophils % 72.2 Lymphocytes % 17.9 Monocytes % 8.9 Eosinophils % 0.8 Basophils % 0.2 Nucleated RBC % 0 Sodium 149 H Potassium 4.5 Chloride 114 H Carbon Dioxide 29 Anion Gap 6 L BUN 33.4 H Creatinine 0.6 Est GFR (CKD-EPI)AfAm 106.28 Est GFR (CKD-EPI)NonAf 91.70 POC Glucometer Random Glucose 312 H Lactic Acid 3.2 H* Calcium 8.6 Total Bilirubin 0.2 AST 37 ALT 37 Alkaline Phosphatase 76 Total Protein 6.0 L Albumin 1.4 L Random Vancomycin COVID-19 (KADEN) 07/18/20 11:11 WBC RBC Hgb Hct MCV MCH MCHC RDW Plt Count MPV Absolute Neuts (auto) Neutrophils % Lymphocytes % Monocytes % Eosinophils % Basophils % Nucleated RBC % Sodium Potassium Chloride Carbon Dioxide Anion Gap BUN Creatinine Est GFR (CKD-EPI)AfAm Est GFR (CKD-EPI)NonAf POC Glucometer 276 Random Glucose Lactic Acid Calcium Total Bilirubin AST ALT Alkaline Phosphatase Total Protein Albumin Random Vancomycin COVID-19 ([facility]) Problem List - Problems (1) Lactic acid increased Code(s): E87.2 - ACIDOSIS (2) VESTA (acute kidney injury) Code(s): N17.9 - ACUTE KIDNEY FAILURE, UNSPECIFIED (3) Bacteremia Code(s): R78.81 - BACTEREMIA (4) CAD (coronary artery disease) Code(s): I25.10 - ATHSCL HEART DISEASE OF [place] CORONARY ARTERY W/O ANG PCTRS (5) COPD (chronic obstructive pulmonary disease) Code(s): J44.9 - CHRONIC OBSTRUCTIVE PULMONARY DISEASE, UNSPECIFIED (6) Gram-negative bacteremia Code(s): R78.81 - BACTEREMIA (7) History of CVA (cerebrovascular accident) Code(s): Z86.73 - PRSNL HX OF TIA (TIA), AND CEREB INFRC W/O RESID DEFICITS (8) Pneumonia Code(s): J18.9 - PNEUMONIA, UNSPECIFIED ORGANISM Qualifiers: Pneumonia type: due to unspecified organism Laterality: unspecified laterality Lung location: unspecified part of lung Qualified Code(s): J18.9 - Pneumonia, unspecified organism (9) Arteriosclerotic heart disease (ASHD) Code(s): I25.10 - ATHSCL HEART DISEASE OF [place] CORONARY ARTERY W/O ANG PCTRS (10) Diabetes Code(s): E11.9 - TYPE 2 DIABETES MELLITUS WITHOUT COMPLICATIONS (11) HTN (hypertension) Code(s): I10 - ESSENTIAL (PRIMARY) HYPERTENSION (12) S/P CABG (coronary artery bypass graft) Code(s): Z95.1 - PRESENCE OF AORTOCORONARY BYPASS GRAFT (13) Chronic respiratory failure Code(s): J96.10 - CHRONIC RESPIRATORY FAILURE, UNSP W HYPOXIA OR HYPERCAPNIA (14) Sepsis Code(s): A41.9 - SEPSIS, UNSPECIFIED ORGANISM (15) High glucose Code(s): R73.09 - OTHER ABNORMAL GLUCOSE IMP CHRONIC RESPIRATORY FAILURE S/P CVA WITH THROMBECTOMY UROSEPSIS GRAM NEG BACTEREMIA ? PNEUMONIA ELEVATED LACTATE LEVEL ASHD S/P CABG COPD HTN HLD DIASTOLIC HF SACRAL DECUBITUS VESTA ANEMIA PLAN VENT SUPPORT ON AC MODE IVF ABX PER ID MONITOR LYTES,RENAL FUNCTION,H+H WOUND CARE Dr Norman
--- NOTE | 2019-10-20 16:26 | PN ---
Progress Note, Physician History of Present Illness: Pt remains febrile, wbc trending down. Noted to have recent twitching. Neurology evaluation reviewed. Notified that pt is growing ESBL + gram neg organisms in multiple cultures. - Current Medication List Current Medications: Active Medications Acetaminophen (Tylenol Oral Solution -) 650 mg GT Q6H PRN PRN Reason: PAIN Last Admin: 10/20/19 14:07 Dose: 650 mg Documented by: Albuterol/Ipratropium (Duoneb -) 1 amp NEB RQID [facility] Last Admin: 10/20/19 11:54 Dose: 1 amp Documented by: Allopurinol (Zyloprim -) 100 mg PEG DAILY [facility] Last Admin: 10/20/19 10:49 Dose: 100 mg Documented by: Amlodipine Besylate (Norvasc -) 5 mg PEG DAILY [facility] Last Admin: 10/20/19 10:49 Dose: 5 mg Documented by: Ascorbic Acid (Vitamin C Oral Solution -) 500 mg GT DAILY [facility] Last Admin: 10/20/19 10:49 Dose: 500 mg Documented by: Atorvastatin Calcium (Lipitor -) 80 mg PEG HS [facility] Last Admin: 10/19/19 22:11 Dose: 80 mg Documented by: Cholecalciferol (Vitamin D3 -) 1,000 unit GT DAILY [facility] Last Admin: 10/20/19 10:49 Dose: 1,000 unit Documented by: Collagenase (Santyl -) 1 applic TP DAILY [facility]; Protocol Last Admin: 10/20/19 10:47 Dose: 1 applic Documented by: Cyanocobalamin (Vitamin B12 -) 1,000 mcg PEG DAILY [facility] Last Admin: 10/20/19 10:49 Dose: 1,000 mcg Documented by: Ferrous Sulfate (Feosol) 300 mg GT DAILY [facility] Last Admin: 10/20/19 10:48 Dose: 300 mg Documented by: Heparin Sodium (Porcine) (Heparin -) 5,000 unit SQ BID [facility] Last Admin: 10/20/19 10:48 Dose: 5,000 unit Documented by: Cefepime HCl 2 gm/ Dextrose 100 mls @ 100 mls/hr IVPB Q8H-IV [facility]; Protocol Last Admin: 10/20/19 10:48 Dose: 100 mls/hr Documented by: Metronidazole (Flagyl 500mg Premixed Ivpb -) 500 mg in 100 mls @ 100 mls/hr IVPB Q8H-IV [facility] Last Admin: 07/18/20 10:48 Dose: 100 mls/hr Documented by: Sodium Chloride (1/2 Normal Saline) 1,000 mls @ 83 mls/hr IV ASDIR [facility] Last Admin: 10/20/19 08:14 Dose: 83 mls/hr Documented by: Vancomycin HCl (Vancomycin (Pre-Docked)) 1 gm in 250 mls @ 166.667 mls/hr IVPB 0100,1300 [facility]; Protocol Last Admin: 10/20/19 14:08 Dose: 166.667 mls/hr Documented by: Insulin Aspart (Novolog Vial Sliding Scale -) 1 vial SQ Q6HPO [facility]; Protocol Last Admin: 10/20/19 11:12 Dose: 4 units Documented by: Insulin Detemir (Levemir Vial) 10 units SQ 0700,2200 [facility] Last Admin: 10/20/19 06:05 Dose: 10 units Documented by: Levetiracetam (Keppra Oral Solution -) 1,000 mg GT BID [facility] Last Admin: 10/20/19 10:48 Dose: 1,000 mg Documented by: Multivitamins/Minerals (Certavite-Antioxidant Liquid) 15 ml GT DAILY [facility] Last Admin: 10/20/19 10:49 Dose: 15 ml Documented by: Nystatin (Nystop Powder -) 1 applic TP BID [facility] Last Admin: 10/20/19 10:50 Dose: 1 applic Documented by: Pantoprazole Sodium (Protonix Iv) 40 mg IVPUSH DAILY [facility] Last Admin: 10/20/19 10:48 Dose: 40 mg Documented by: Prednisone (Deltasone -) 5 mg PEG DAILY [facility] Last Admin: 10/20/19 10:51 Dose: 5 mg Documented by: Valproate Sodium (Depakene -) 750 mg GT TID [facility] Last Admin: 10/20/19 14:07 Dose: 750 mg Documented by: - Objective Vital Signs: Vital Signs Temperature 101.1 F H 10/20/19 15:00 Pulse Rate 87 10/20/19 15:00 Respiratory Rate 25 H 10/20/19 15:00 Blood Pressure 131/61 10/20/19 15:00 O2 Sat by Pulse Oximetry (%) 98 10/20/19 15:00 Constitutional: Yes: No Distress Cardiovascular: Yes: Regular Rate and Rhythm Respiratory: Yes: Mechanically Ventilated, Rhonchi, Other (trach) Gastrointestinal: Yes: Normal Bowel Sounds, Soft, Abdomen, Obese ...Rectal Exam: Yes: Other (rectal tube with loose stool) Genitourinary: Yes: Robbins Present Integumentary: Yes: Pressure Ulcer (St IV Sacral DU) Wound/Incision: Yes: Other (Sacral ST IV DU with foul smelling drainage, necrotic base. Bone palpable.) Neurological: Yes: Other (obtunded) Labs: CBC, BMP 10/20/19 07:40 10/20/19 07:40 INR, PTT INR 1.05 (0.83-1.09) 10/17/19 18:47 Laboratory Last Values WBC 11.5 K/mm3 (4.0-10.0) H 10/20/19 07:40 RBC 3.55 M/mm3 (3.60-5.2) L 10/20/19 07:40 Hgb 7.7 GM/dL (10.7-15.3) L 10/20/19 07:40 Hct 25.8 % (32.4-45.2) L 10/20/19 07:40 MCV 72.6 fl (80-96) L 10/20/19 07:40 MCH 21.7 pg (25.7-33.7) L 10/20/19 07:40 MCHC 29.9 g/dl (32.0-36.0) L 10/20/19 07:40 RDW 18.4 % (11.6-15.6) H 10/20/19 07:40 Plt Count 332 K/MM3 (134-434) 10/20/19 07:40 MPV 8.9 fl (7.5-11.1) 10/20/19 07:40 Absolute Neuts (auto) 8.3 K/mm3 (1.5-8.0) H 10/20/19 07:40 Neutrophils % 72.2 % (42.8-82.8) 10/20/19 07:40 Lymphocytes % 17.9 % (8-40) 10/20/19 07:40 Monocytes % 8.9 % (3.8-10.2) 10/20/19 07:40 Eosinophils % 0.8 % (0-4.5) 10/20/19 07:40 Basophils % 0.2 % (0-2.0) 10/20/19 07:40 Nucleated RBC % 0 % (0-0) 10/20/19 07:40 Hypochromia 2+ 10/17/19 18:47 Anisocytosis 2+ 10/17/19 18:47 Macrocytosis 2+ 10/17/19 18:47 Ovalocytes 1+ 10/17/19 18:47 PT with INR 12.40 SEC (9.7-13.0) 10/17/19 18: INR 1.05 (0.83-1.09) 10/17/19 18:47 PTT (Actin FS) 24.5 SECONDS (25.2-36.5) L 10/17/19 18:47 VBG pH 7.425 (7.310-7.410) H 10/17/19 18:40 POC VBG pCO2 45.2 mmHg (38-52) 10/17/19 18:40 POC VBG pO2 40.0 mmHg (28-48) 10/17/19 18:40 VBG HCO3 29.0 mmol/L (23-29) 10/17/19 18:40 VBG O2 Sat (Brice) 75.9 % (70-80) 10/17/19 18:40 VBG Base Excess 3.9 mmol/L (-2-2) H 10/17/19 18:40 Sodium 149 mmol/L (136-145) H 10/20/19 07:40 Potassium 4.5 mmol/L (3.5-5.1) 10/20/19 07:40 Chloride 114 mmol/L (98-107) H 10/20/19 07:40 Carbon Dioxide 29 mmol/L (21-32) 10/20/19 07:40 Anion Gap 6 MMOL/L (8-16) L 10/20/19 07:40 BUN 33.4 mg/dL (7-18) H 10/20/19 07:40 Creatinine 0.6 mg/dL (0.55-1.3) 10/20/19 07:40 Est GFR (CKD-EPI)AfAm 106.28 10/20/19 07:40 Est GFR (CKD-EPI)NonAf 91.70 10/20/19 07:40 POC Glucometer 276 UNITS (80-120) 10/20/19 11:11 Random Glucose 312 mg/dL (74-106) H 10/20/19 07:40 Hemoglobin A1c % 10.9 % (4.2-6.3) H 10/18/19 06:00 Lactic Acid 3.2 mmol/L (0.4-2.0) H* 10/20/19 07:40 Calcium 8.6 mg/dL (8.5-10.1) 10/20/19 07:40 Iron 13 ug/dL (50-175) L 10/18/19 06:00 TIBC 145 ug/dL (250-450) L 10/18/19 06:00 Iron Saturation 8 % (17.5-39) L 10/18/19 06:00 Unsaturated IBC 132 ug/dL (200-275) L 10/18/19 06:00 Ferritin 636.2 ng/ml (8-388) H 10/18/19 06:00 Total Bilirubin 0.2 mg/dL (0.2-1) 10/20/19 07:40 AST 37 U/L (15-37) 10/20/19 07:40 ALT 37 U/L (13-61) 10/20/19 07:40 Alkaline Phosphatase 76 U/L (45-117) 10/20/19 07:40 Troponin I < 0.02 ng/ml (0.00-0.05) 10/17/19 18:47 Total Protein 6.0 g/dl (6.4-8.2) L 10/20/19 07:40 Albumin 1.4 g/dl (3.4-5.0) L 10/20/19 07:40 Vitamin B12 > 2000 pg/ml (193-986) H 10/18/19 06:00 Beta-Hydroxybutyrate 1.9 mg/dL (0.2-2.8) 10/17/19 18:47 TSH 1.16 uIU/ml (0.358-3.74) 10/18/19 06:00 Free T4 0.98 ng/dl (0.76-1.46) 10/18/19 06:00 Urine Color Yellow 10/18/19 15:15 Urine Appearance Cloudy 10/18/19 15:15 Urine pH 5.0 (5.0-8.0) 10/18/19 15:15 Ur Specific [place] 1.020 (1.010-1.035) 10/18/19 15:15 Urine Protein 1+ (NEGATIVE) H 10/18/19 15:15 Urine Glucose (UA) Negative (NEGATIVE) 10/18/19 15:15 Urine Ketones Negative (NEGATIVE) 10/18/19 15:15 Urine Blood 3+ (NEGATIVE) H 10/18/19 15:15 Urine Nitrite Negative (NEGATIVE) 10/18/19 15:15 Urine Bilirubin Negative (NEGATIVE) 10/18/19 15:15 Urine Urobilinogen 0.2 mg/dL (0.2-1.0) 10/18/19 15:15 Ur Leukocyte Esterase 1+ (NEGATIVE) H 10/18/19 15:15 Urine WBC (Auto) 24 /uL (0-25.8) 10/18/19 15:15 Urine RBC (Auto) 196 /uL (0-23.9) 10/18/19 15:15 Urine Casts (Auto) 21 /uL (0-3.1) 10/18/19 15:15 U Pathogenic Cast Auto None /lpf (NEGATIVE) 10/18/19 15:15 U Epithel Cells (Auto) >36 /uL (0-25.1) 10/18/19 15:15 U Sm Round Cell (Auto) None 10/18/19 15:15 Urine Bacteria (Auto) 9 /uL (0-1359) 10/18/19 15:15 Ur Random Creatinine 45.0 mg/dL (30-150) 10/18/19 15:15 Ur Random Sodium < 18 MMOL/L (40-220) L 10/18/19 15:15 Ur Random Potassium 26.0 MMOL/L (25-125) 10/18/19 15:15 Ur Random Chloride < 11 MMOL/L (110-250) L 10/18/19 15:15 Stool Occult Blood Negative (NEGATIVE) 10/18/19 15:15 Random Vancomycin 5.8 ug/ml (5-26) 10/19/19 17:50 COVID-19 ([facility]ADEN) Not detected (Not Detected) 10/17/19 19:57 Microbiology 10/18/19 23:00 Decubiti Gram Stain - Final 10/18/19 23:00 Decubiti Wound Culture - Preliminary Proteus Species Lactose Fermenting Neg Bacilli Pending Organism Pending Organism#2 10/18/19 03:30 Urine - Urine Robbins Urine Culture - Preliminary Proteus Species 10/17/19 18:40 Blood - Peripheral Venous Blood Culture - Preliminary Non Lactose Fermenting Gnb Pending Organism 10/18/19 18:10 Sputum - Endotrachea Suction/Ventilator Gram Stain - Final 10/18/19 18:10 Sputum - Endotrachea Suction/Ventilator Sputum Culture - Preliminary Non Lactose Fermenting Gnb 10/18/19 18:10 Stool Clostridioides difficile Antigen - Final 10/18/19 18:10 Stool Clostridioides difficile Toxin Assay - Final 10/17/19 18:40 Blood - Peripheral Venous Blood Culture - Preliminary Proteus Species 10/17/19 20:36 Urine - Urine - Catheterized Urine Culture - Preliminary Non Lactose Fermenting Gnb - ....Imaging Ultrasound: Report Reviewed Problem List - Problems (1) Gram-negative bacteremia Code(s): R78.81 - BACTEREMIA (2) History of CVA (cerebrovascular accident) Code(s): Z86.73 - PRSNL HX OF TIA (TIA), AND CEREB INFRC W/O RESID DEFICITS (3) CAD (coronary artery disease) Code(s): I25.10 - ATHSCL HEART DISEASE OF [place] CORONARY ARTERY W/O ANG PCTRS (4) Diarrhea Code(s): R19.7 - DIARRHEA, UNSPECIFIED (5) VESTA (acute kidney injury) Code(s): N17.9 - ACUTE KIDNEY FAILURE, UNSPECIFIED (6) Pneumonia Code(s): J18.9 - PNEUMONIA, UNSPECIFIED ORGANISM Qualifiers: Pneumonia type: due to unspecified organism Laterality: unspecified laterality Lung location: unspecified part of lung Qualified Code(s): J18.9 - Pneumonia, unspecified organism (7) Obese Code(s): E66.9 - OBESITY, UNSPECIFIED Qualifiers: Body mass index: BMI 60.0-69.9 (8) UTI (urinary tract infection) Code(s): N39.0 - URINARY TRACT INFECTION, SITE NOT SPECIFIED Qualifiers: Urinary tract infection type: site unspecified Hematuria presence: with hematuria Qualified Code(s): N39.0 - Urinary tract infection, site not specified; R31.9 - Hematuria, unspecified (9) Diabetes Code(s): E11.9 - TYPE 2 DIABETES MELLITUS WITHOUT COMPLICATIONS (10) HTN (hypertension) Code(s): I10 - ESSENTIAL (PRIMARY) HYPERTENSION (11) Hyperlipidemia Code(s): E78.5 - HYPERLIPIDEMIA, UNSPECIFIED (12) S/P CABG (coronary artery bypass graft) Code(s): Z95.1 - PRESENCE OF AORTOCORONARY BYPASS GRAFT (13) COPD (chronic obstructive pulmonary disease) Code(s): J44.9 - CHRONIC OBSTRUCTIVE PULMONARY DISEASE, UNSPECIFIED (14) Decubitus ulcer, stage 4 with infection Code(s): L89.94 - PRESSURE ULCER OF UNSPECIFIED SITE, STAGE 4; L08.9 - LOCAL INFECTION OF THE SKIN AND SUBCUTANEOUS TISSUE, UNSP (15) Lactic acid increased Code(s): E87.2 - ACIDOSIS (16) Metabolic encephalopathy Code(s): G93.41 - METABOLIC ENCEPHALOPATHY (17) Seizures Code(s): R56.9 - UNSPECIFIED CONVULSIONS (18) ESBL (extended spectrum beta-lactamase) producing bacteria infection Code(s): A49.9 - BACTERIAL INFECTION, UNSPECIFIED; Z16.12 - EXTENDED SPECTRUM BETA LACTAMASE (ESBL) RESISTANCE Assessment/Plan Sepsis Gram negative UTI with bacteremia ESBL + bacterial infection HCAP vs VAP Diarrhea Polymicrobial Sacral St IV DU infection/ likely OM Seizures Chronic respiratory failure s/p trach/MV Acute kidney injury Uncontrolled DM Morbid obesity Hx of CVA s/p thrombectomy CAD s/p CABG x 2 COPD Diastolic CHF HTN HLD -- Pt remains febrile with elevated lactic acid levels. Possibly due to Seizures. Neurology following, [place] added. Wbc trending down, BP relatively stable. -- Will need to switch antibiotics to Meropenem to cover reported ESBL + organisms but will decrease levels of Valproic acid due to interaction. Needs close monitoring for seizure activity. Attempting to reach Neurology to discuss. -- Vancomycin IV BID, renal function improving -- follow up final blood/urine/wound/sputum culture results -- stool for Cdif negative -- wound care/frequent turning -- Sacral DU ideally needs debridement if feasible. Overall poor prognosis for wound healing. -- monitor lactic acid/wbc/renal function -- monitor temp trend/ vitals closely
[2019-10-20] MEDS ORDERED: ALBUTEROL SO4 2.5/IPRATROPIUM 0.5 INH SOL 3 ML VIAL.NEB. NEB ONE (16:47)
[2019-10-20] MEDS ORDERED: MEROPENEM 1 GM VIAL (RESTRICTED TO ID) IVPB ONE (17:00)
[2019-10-20] MEDS ORDERED: DEXTROSE 5%-WATER 100 ML IVPB ONE (17:00)
[2019-10-20] MEDS: LACTOBACILLUS ACIDOPHILUS 1 TABLET GT SCH (17:02)
[2019-10-20] MEDS: MEROPENEM 1 GM in DEXTROSE 5%-WATER 100 ML IVPB SCH (17:03)
[2019-10-20] MEDS: ATORVASTATIN CA 80 MG TABLET (FP) PEG SCH (22:10)
[2019-10-21] MEDS: VANCOMYCIN 1 GRAM (PRE-DOCKED) 1 GM/250 ML BAG IVPB SCH ×2 (00:50→13:02)
--- NOTE | 2019-10-21 01:09 | PN ---
Progress Note (short form) - Note Progress Note: mechanical vent Current Active Problems VESTA (acute kidney injury) (Acute) Bacteremia (Acute) CAD (coronary artery disease) (Acute) COPD (chronic obstructive pulmonary disease) (Acute) Chronic respiratory failure (Acute) Decubitus ulcer, stage 4 with infection (Acute) Diarrhea (Acute) ESBL (extended spectrum beta-lactamase) producing bacteria infection (Acute) Gram-negative bacteremia (Acute) High glucose (Acute) History of CVA (cerebrovascular accident) (Acute) Lactic acid increased (Acute) Metabolic encephalopathy (Acute) Pneumonia (Acute) Seizures (Acute) Sepsis (Acute) Abnormal Lab Results 10/20/19 10/20/19 10/20/19 07:40 07:40 07:40 WBC 11.5 H RBC 3.55 L Hgb 7.7 L Hct 25.8 L MCV 72.6 L MCH 21.7 L MCHC 29.9 L RDW 18.4 H Absolute Neuts (auto) 8.3 H Sodium 149 H Chloride 114 H Anion Gap 6 L BUN 33.4 H Random Glucose 312 H Lactic Acid 3.2 H* Total Protein 6.0 L Albumin 1.4 L Laboratory Results - last 24 hr 10/20/19 10/20/19 10/20/19 06:04 07:40 07:40 WBC 11.5 H RBC 3.55 L Hgb 7.7 L Hct 25.8 L MCV 72.6 L MCH 21.7 L MCHC 29.9 L RDW 18.4 H Plt Count 332 MPV 8.9 Absolute Neuts (auto) 8.3 H Neutrophils % 72.2 Lymphocytes % 17.9 Monocytes % 8.9 Eosinophils % 0.8 Basophils % 0.2 Nucleated RBC % 0 Sodium 149 H Potassium 4.5 Chloride 114 H Carbon Dioxide 29 Anion Gap 6 L BUN 33.4 H Creatinine 0.6 Est GFR (CKD-EPI)AfAm 106.28 Est GFR (CKD-EPI)NonAf 91.70 POC Glucometer 318 Random Glucose 312 H Lactic Acid Calcium 8.6 Total Bilirubin 0.2 AST 37 ALT 37 Alkaline Phosphatase 76 Total Protein 6.0 L Albumin 1.4 L 10/20/19 10/20/19 10/20/19 07:40 11:11 17:06 WBC RBC Hgb Hct MCV MCH MCHC RDW Plt Count MPV Absolute Neuts (auto) Neutrophils % Lymphocytes % Monocytes % Eosinophils % Basophils % Nucleated RBC % Sodium Potassium Chloride Carbon Dioxide Anion Gap BUN Creatinine Est GFR (CKD-EPI)AfAm Est GFR (CKD-EPI)NonAf POC Glucometer 276 358 Random Glucose Lactic Acid 3.2 H* Calcium Total Bilirubin AST ALT Alkaline Phosphatase Total Protein Albumin 10/20/19 23:13 WBC RBC Hgb Hct MCV MCH MCHC RDW Plt Count MPV Absolute Neuts (auto) Neutrophils % Lymphocytes % Monocytes % Eosinophils % Basophils % Nucleated RBC % Sodium Potassium Chloride Carbon Dioxide Anion Gap BUN Creatinine Est GFR (CKD-EPI)AfAm Est GFR (CKD-EPI)NonAf POC Glucometer 317 Random Glucose Lactic Acid Calcium Total Bilirubin AST ALT Alkaline Phosphatase Total Protein Albumin plan: bgm continue with coverage qid levemir 20units daily iv antibiotics gt feedings. Problem List - Problems (1) VESTA (acute kidney injury) Code(s): N17.9 - ACUTE KIDNEY FAILURE, UNSPECIFIED (2) CAD (coronary artery disease) Code(s): I25.10 - ATHSCL HEART DISEASE OF [place] CORONARY ARTERY W/O ANG PCTRS (3) COPD (chronic obstructive pulmonary disease) Code(s): J44.9 - CHRONIC OBSTRUCTIVE PULMONARY DISEASE, UNSPECIFIED (4) Diarrhea Code(s): R19.7 - DI[place]HE[place], UNSPECIFIED (5) Gram-negative bacteremia Code(s): R78.81 - BACTEREMIA (6) History of CVA (cerebrovascular accident) Code(s): Z86.73 - PRSNL HX OF TIA (TIA), AND CEREB INFRC W/O RESID DEFICITS
[2019-10-21] MEDS ORDERED: MEROPENEM 1 GM VIAL (RESTRICTED TO ID) IVPB ONE ×3 (02:54→20:31)
[2019-10-21] MEDS ORDERED: DEXTROSE 5%-WATER 100 ML IVPB ONE ×3 (02:55→20:31)
[2019-10-21] MEDS: MEROPENEM 1 GM in DEXTROSE 5%-WATER 100 ML IVPB SCH ×3 (02:56→20:33)
[2019-10-21] MEDS: SODIUM CHLORIDE 0.45% 1,000 ML IV SCH ×2 (03:49→14:16)
[2019-10-21] MEDS: ACETAMINOPHEN 650 MG/20.3 ML ORAL SOLUTION (CUPS) GT PRN ×2 (05:38→11:43)
[2019-10-21] MEDS: VALPROATE SODIUM 250 MG/5 ML UNIT DOSE CUP GT SCH ×3 (05:38→22:16)
[2019-10-21] MEDS: INSULIN (LEVEMIR) 100 UNITS/ML UNITS SQ SCH ×2 (06:08→22:18)
[2019-10-21] MEDS: INSULIN SLIDING SCALE (NOVOLOG) 1 VIAL SQ SCH ×3 (06:09→17:48)
[2019-10-21] MEDS: ALBUTEROL SO4 2.5/IPRATROPIUM 0.5 INH SOL 3 ML VIAL.NEB. NEB SCH ×4 (07:59→20:55)
[2019-10-21 10:02] LABS: BASO % 0.2 % (0-2.0); EOS % 1.1 % (0-4.5); HEMATOCRIT 23.9 % (32.4-45.2); HEMOGLOBIN 7.1 GM/dL (10.7-15.3); LYMPH % 20.4 % (8-40); MCH 21.3 pg (25.7-33.7); MCHC 29.9 g/dl (32.0-36.0); MEAN CELL VOLUME 71.3 fl (80-96); MEAN PLT VOLUME 8.8 fl (7.5-11.1); MONO % 9.7 % (3.8-10.2); NEUT % 68.6 % (42.8-82.8); PLATELET COUNT 309 K/MM3 (134-434); RBC 3.35 M/mm3 (3.60-5.2); RDW 18.1 % (11.6-15.6); WHITE BLOOD COUNT 12.9 K/mm3 (4.0-10.0)
[2019-10-21] MEDS: PANTOPRAZOLE SODIUM 40 MG VIAL IVPUSH SCH (10:05)
[2019-10-21] MEDS: ALLOPURINOL 100 MG TABLET (FP) PEG SCH (10:08)
[2019-10-21] MEDS: CHOLECALCIFEROL (VIT D3) 1,000 UNIT (25 MCG) TABLET GT SCH (10:08)
[2019-10-21] MEDS: FERROUS SO4 300 MG/5 ML ORAL SOLN UNIT DOSE CUPS GT SCH (10:10)
[2019-10-21] MEDS: levETIRAcetam 500 MG/5 ML ORAL SOLUTION (UNIT-DOSE CUPS) GT SCH ×2 (10:10→22:16)
[2019-10-21] MEDS: HEPARIN NA (PORCINE) 5,000 UNITS/ML 1ML VIAL SQ SCH ×2 (10:10→22:17)
[2019-10-21] MEDS: MULTIVIT-MINERALS ORAL LIQUID GT SCH (10:14)
[2019-10-21] MEDS: ASCORBIC ACID 500 MG/5 ML UNIT DOSE CUP GT SCH (10:14)
[2019-10-21] MEDS: predniSONE 5 MG TABLET (UD) PEG SCH (10:14)
[2019-10-21] MEDS: amLODIPine BESYLATE 5 MG TABLET (FP) PEG SCH (10:16)
[2019-10-21] MEDS: LACTOBACILLUS ACIDOPHILUS 1 TABLET GT SCH (10:16)
[2019-10-21] MEDS: CYANOCOBALAMIN 1,000 MCG TABLET (FP) PEG SCH (10:16)
[2019-10-21 10:24] LABS: ALBUMIN 1.3 g/dl (3.4-5.0); BILIRUBIN,TOTAL 0.2 mg/dL (0.2-1); BLOOD UREA NITROGEN 22.2 mg/dL (7-18); CREATININE 0.5 mg/dL (0.55-1.3); POTASSIUM 4.3 mmol/L (3.5-5.1); TOT PROT 5.6 g/dl (6.4-8.2)
[2019-10-21 11:12] LABS: ANISOCYTOSIS 3+; MACROCYTOSIS 0; PLATELET ESTIMATE NORMAL; TEAR DROP CELLS 1+
[2019-10-21] MEDS ORDERED: INSULIN (NOVOLOG) ASPART 100 UNITS/ML 10ML VIAL ONE (11:24)
--- NOTE | 2019-10-21 11:33 | PN ---
Progress Note, Physician - Current Medication List Current Medications: Active Medications Acetaminophen (Tylenol Oral Solution -) 650 mg GT Q6H PRN PRN Reason: PAIN Last Admin: 10/21/19 05:38 Dose: 650 mg Documented by: Albuterol/Ipratropium (Duoneb -) 1 amp NEB RQID [facility] Last Admin: 10/21/19 07:59 Dose: 1 amp Documented by: Allopurinol (Zyloprim -) 100 mg PEG DAILY [facility] Last Admin: 10/21/19 10:08 Dose: 100 mg Documented by: Amlodipine Besylate (Norvasc -) 5 mg PEG DAILY [facility] Last Admin: 10/21/19 10:16 Dose: 5 mg Documented by: Ascorbic Acid (Vitamin C Oral Solution -) 500 mg GT DAILY [facility] Last Admin: 10/21/19 10:14 Dose: 500 mg Documented by: Atorvastatin Calcium (Lipitor -) 80 mg PEG HS [facility] Last Admin: 10/20/19 22:10 Dose: 80 mg Documented by: Cholecalciferol (Vitamin D3 -) 1,000 unit GT DAILY [facility] Last Admin: 10/21/19 10:08 Dose: 1,000 unit Documented by: Collagenase (Santyl -) 1 applic TP DAILY [facility]; Protocol Last Admin: 10/20/19 10:47 Dose: 1 applic Documented by: Cyanocobalamin (Vitamin B12 -) 1,000 mcg PEG DAILY [facility] Last Admin: 10/21/19 10:16 Dose: 1,000 mcg Documented by: Ferrous Sulfate (Feosol) 300 mg GT DAILY [facility] Last Admin: 10/21/19 10:10 Dose: 300 mg Documented by: Heparin Sodium (Porcine) (Heparin -) 5,000 unit SQ BID [facility] Last Admin: 10/21/19 10:10 Dose: 5,000 unit Documented by: Sodium Chloride (1/2 Normal Saline) 1,000 mls @ 83 mls/hr IV ASDIR [facility] Last Admin: 10/21/19 03:49 Dose: 83 mls/hr Documented by: Vancomycin HCl (Vancomycin (Pre-Docked)) 1 gm in 250 mls @ 166.667 mls/hr IVPB 0100,1300 [facility]; Protocol Last Admin: 10/21/19 00:50 Dose: 166.667 mls/hr Documented by: Meropenem 1 gm/ Dextrose 100 mls @ 200 mls/hr IVPB Q8H-IV [facility] Last Admin: 10/21/19 10:07 Dose: 200 mls/hr Documented by: Insulin Aspart (Novolog Vial Sliding Scale -) 1 vial SQ Q6HPO [facility]; Protocol Last Admin: 10/21/19 06:09 Dose: 8 units Documented by: Insulin Detemir (Levemir Vial) 20 units SQ 0700,2200 [facility] Last Admin: 10/21/19 06:08 Dose: 20 units Documented by: Lactobacillus Acidophilus (Bacid -) 1 tab GT DAILY [facility] Last Admin: 10/21/19 10:16 Dose: 1 tab Documented by: Levetiracetam (Keppra Oral Solution -) 1,000 mg GT BID [facility] Last Admin: 10/21/19 10:10 Dose: 1,000 mg Documented by: Multivitamins/Minerals (Certavite-Antioxidant Liquid) 15 ml GT DAILY [facility] Last Admin: 10/21/19 10:14 Dose: 15 ml Documented by: Nystatin (Nystop Powder -) 1 applic TP BID [facility] Last Admin: 10/20/19 22:22 Dose: 1 applic Documented by: Pantoprazole Sodium (Protonix Iv) 40 mg IVPUSH DAILY [facility] Last Admin: 10/21/19 10:05 Dose: 40 mg Documented by: Prednisone (Deltasone -) 5 mg PEG DAILY [facility] Last Admin: 10/21/19 10:14 Dose: 5 mg Documented by: Valproate Sodium (Depakene -) 750 mg GT TID [facility] Last Admin: 10/21/19 05:38 Dose: 750 mg Documented by: - Objective Vital Signs: Vital Signs Temperature 101.3 F H 10/21/19 06:00 Pulse Rate 91 H 10/21/19 06:00 Respiratory Rate 20 10/21/19 07:57 Blood Pressure 116/65 10/21/19 06:00 O2 Sat by Pulse Oximetry (%) 100 10/21/19 07:57 Cardiovascular: Yes: S1, S2 Respiratory: Yes: Mechanically Ventilated Gastrointestinal: Yes: Normal Bowel Sounds, Soft Labs: CBC, BMP 10/21/19 08:40 10/21/19 08:40 INR, PTT INR 1.05 (0.83-1.09) 10/17/19 18:47 Assessment/Plan - Problems (1) Metabolic encephalopathy Assessment/Plan: -BC+ -UC pending -ID consult -IV abx as per ID Problems reviewed: Yes Code(s): G93.41 - METABOLIC ENCEPHALOPATHY (2) VESTA (acute kidney injury) Assessment/Plan: -Nephrology consult -Gentle IVF -Monitor trend Problems reviewed: Yes Code(s): N17.9 - ACUTE KIDNEY FAILURE, UNSPECIFIED (3) Acute hypercapnic respiratory failure Assessment/Plan: -Pulmonary consult -Mech vent -Not a candidate for weaning at this time Problems reviewed: Yes Code(s): J96.02 - ACUTE RESPIRATORY FAILURE WITH HYPERCAPNIA (4) Diabetes Assessment/Plan: -BGM Q6H -Check A1c -ISS -Levemir 10 U BID -Endocrine consult Problems reviewed: Yes Code(s): E11.9 - TYPE 2 DIABETES MELLITUS WITHOUT COMPLICATIONS (5) Bacteremia Assessment/Plan: -ID consult -Afebrile -Monitor labs -IV abx - Microbiology 10/18/19 18:10 Sputum - Endotrachea Suction/Ventilator Gram Stain - Final 10/18/19 18:10 Sputum - Endotrachea Suction/Ventilator Sputum Culture - Preliminary Proteus Mirabilus - Esbl Produ Staphylococcus Latex Coag Pos 10/18/19 23:00 Decubiti Gram Stain - Final 10/18/19 23:00 Decubiti Wound Culture - Final Proteus Species Lactose Fermenting Neg Bacilli Pseudomonas Species 10/17/19 18:40 Blood - Peripheral Venous Blood Culture - Final Proteus Mirabilus - Esbl Produ 10/17/19 18:40 Blood - Peripheral Venous Blood Culture - Final Proteus Mirabilus - Esbl Produ 10/18/19 03:30 Urine - Urine Robbins Urine Culture - Final Proteus Mirabilus - Esbl Produ 10/19/19 18:00 Blood - Peripheral Venous Blood Culture - Preliminary NO GROWTH OBTAINED AFTER 24 HOURS, INCUBATION TO CONTINUE FOR 4 DAYS. 10/19/19 17:50 Blood - Peripheral Venous Blood Culture - Preliminary NO GROWTH OBTAINED AFTER 24 HOURS, INCUBATION TO CONTINUE FOR 4 DAYS. 10/18/19 18:10 Stool Clostridioides difficile Antigen - Final 10/18/19 18:10 Stool Clostridioides difficile Toxin Assay - Final 10/17/19 20:36 Urine - Urine - Catheterized Urine Culture - Preliminary Non Lactose Fermenting Gnb Problems reviewed: Yes Code(s): R78.81 - BACTEREMIA (6) Pneumonia Assessment/Plan: -CXR LLL infiltrate -ID consult -Pulmonary consult -COVID 19 pending Problems reviewed: Yes Code(s): J18.9 - PNEUMONIA, UNSPECIFIED ORGANISM Qualifiers: Pneumonia type: due to unspecified organism Laterality: unspecified laterality Lung location: unspecified part of lung Qualified Code(s): J18.9 - Pneumonia, unspecified organism (7) Anemia Assessment/Plan: -Monitor _Transfuse Prbc
[2019-10-21] MEDS ORDERED: ACETAMINOPHEN 650 MG/20.3 ML ORAL SOLUTION (CUPS) PEG SCH (12:30)
--- NOTE | 2019-10-21 13:35 | PN ---
Progress Note (short form) - Note Progress Note: 1. VESTA 2. DM 3. hypernatremia 4. resp failure 5. cva 6. copd 7. htn Active Medications Acetaminophen (Tylenol Oral Solution -) 650 mg GT Q6H PRN PRN Reason: PAIN Last Admin: 10/21/19 11:43 Dose: 650 mg Documented by: Acetaminophen (Tylenol Oral Solution -) 650 mg PEG [employer] [facility] Stop: 10/21/19 23:59 Albuterol/Ipratropium (Duoneb -) 1 amp NEB RQID [facility] Last Admin: 10/21/19 12:16 Dose: 1 amp Documented by: Allopurinol (Zyloprim -) 100 mg PEG DAILY [facility] Last Admin: 10/21/19 10:08 Dose: 100 mg Documented by: Amlodipine Besylate (Norvasc -) 5 mg PEG DAILY [facility] Last Admin: 10/21/19 10:16 Dose: 5 mg Documented by: Ascorbic Acid (Vitamin C Oral Solution -) 500 mg GT DAILY [facility] Last Admin: 10/21/19 10:14 Dose: 500 mg Documented by: Atorvastatin Calcium (Lipitor -) 80 mg PEG HS [facility] Last Admin: 10/20/19 22:10 Dose: 80 mg Documented by: Cholecalciferol (Vitamin D3 -) 1,000 unit GT DAILY [facility] Last Admin: 10/21/19 10:08 Dose: 1,000 unit Documented by: Collagenase (Santyl -) 1 applic TP DAILY [facility]; Protocol Last Admin: 10/20/19 10:47 Dose: 1 applic Documented by: Cyanocobalamin (Vitamin B12 -) 1,000 mcg PEG DAILY [facility] Last Admin: 10/21/19 10:16 Dose: 1,000 mcg Documented by: Ferrous Sulfate (Feosol) 300 mg GT DAILY [facility] Last Admin: 10/21/19 10:10 Dose: 300 mg Documented by: Heparin Sodium (Porcine) (Heparin -) 5,000 unit SQ BID [facility] Last Admin: 10/21/19 10:10 Dose: 5,000 unit Documented by: Sodium Chloride (1/2 Normal Saline) 1,000 mls @ 83 mls/hr IV ASDIR [facility] Last Admin: 10/21/19 03:49 Dose: 83 mls/hr Documented by: Vancomycin HCl (Vancomycin (Pre-Docked)) 1 gm in 250 mls @ 166.667 mls/hr IVPB 0100,1300 [facility]; Protocol Last Admin: 10/21/19 13:02 Dose: 166.667 mls/hr Documented by: Meropenem 1 gm/ Dextrose 100 mls @ 200 mls/hr IVPB Q8H-IV [facility] Last Admin: 10/21/19 10:07 Dose: 200 mls/hr Documented by: Insulin Aspart (Novolog Vial Sliding Scale -) 1 vial SQ Q6HPO [facility]; Protocol Last Admin: 10/21/19 11:41 Dose: 7 units Documented by: Insulin Detemir (Levemir Vial) 20 units SQ 0700,2200 [facility] Last Admin: 10/21/19 06:08 Dose: 20 units Documented by: Lactobacillus Acidophilus (Bacid -) 1 tab GT DAILY [facility] Last Admin: 10/21/19 10:16 Dose: 1 tab Documented by: Levetiracetam (Keppra Oral Solution -) 1,000 mg GT BID [facility] Last Admin: 10/21/19 10:10 Dose: 1,000 mg Documented by: Multivitamins/Minerals (Certavite-Antioxidant Liquid) 15 ml GT DAILY [facility] Last Admin: 10/21/19 10:14 Dose: 15 ml Documented by: Nystatin (Nystop Powder -) 1 applic TP BID [facility] Last Admin: 10/20/19 22:22 Dose: 1 applic Documented by: Pantoprazole Sodium (Protonix Iv) 40 mg IVPUSH DAILY [facility] Last Admin: 10/21/19 10:05 Dose: 40 mg Documented by: Prednisone (Deltasone -) 5 mg PEG DAILY [facility] Last Admin: 10/21/19 10:14 Dose: 5 mg Documented by: Valproate Sodium (Depakene -) 750 mg GT TID [facility] Last Admin: 10/21/19 05:38 Dose: 750 mg Documented by: Last Vital Signs Temp Pulse Resp BP Pulse Ox 101.3 F H 91 H 19 116/65 100 10/21/19 06:00 10/21/19 06:00 10/21/19 12:11 10/21/19 06:00 10/21/19 12:11 CBC, BMP 10/20/19 07:40 10/20/19 07:40 VESTA improved on fluids Hypernatremia- 2/2 high feverz needs free water Plan continue to monitor labs replace free water
--- NOTE | 2019-10-21 14:03 | PN ---
Progress Note (short form) - Note Progress Note: Unresponsive on AC mode of vent. No change in overall condition. NAD. No acute events overnight. Intake & Output 10/18/19 10/19/19 10/20/19 10/21/19 23:59 23:59 23:59 23:59 Intake Total 1500 3725 3424 1701 Output Total 750 2200 2700 500 Balance 750 9975 475 0681 Weight 180 lb 185 lb 9.6 oz 190 lb 6.4 oz 190 lb 14.4 oz Last Vital Signs Temp Pulse Resp BP Pulse Ox 101.3 F H 91 H 19 116/65 100 10/21/19 06:00 10/21/19 06:00 10/21/19 12:11 10/21/19 06:00 10/21/19 12:11 Active Medications Acetaminophen (Tylenol Oral Solution -) 650 mg GT Q6H PRN PRN Reason: PAIN Last Admin: 10/21/19 11:43 Dose: 650 mg Documented by: Acetaminophen (Tylenol Oral Solution -) 650 mg PEG [employer] [facility] Stop: 10/21/19 23:59 Albuterol/Ipratropium (Duoneb -) 1 amp NEB RQID [facility] Last Admin: 10/21/19 12:16 Dose: 1 amp Documented by: Allopurinol (Zyloprim -) 100 mg PEG DAILY [facility] Last Admin: 10/21/19 10:08 Dose: 100 mg Documented by: Amlodipine Besylate (Norvasc -) 5 mg PEG DAILY [facility] Last Admin: 10/21/19 10:16 Dose: 5 mg Documented by: Ascorbic Acid (Vitamin C Oral Solution -) 500 mg GT DAILY [facility] Last Admin: 10/21/19 10:14 Dose: 500 mg Documented by: Atorvastatin Calcium (Lipitor -) 80 mg PEG HS [facility] Last Admin: 10/20/19 22:10 Dose: 80 mg Documented by: Cholecalciferol (Vitamin D3 -) 1,000 unit GT DAILY [facility] Last Admin: 10/21/19 10:08 Dose: 1,000 unit Documented by: Collagenase (Santyl -) 1 applic TP DAILY [facility]; Protocol Last Admin: 10/20/19 10:47 Dose: 1 applic Documented by: Cyanocobalamin (Vitamin B12 -) 1,000 mcg PEG DAILY [facility] Last Admin: 10/21/19 10:16 Dose: 1,000 mcg Documented by: Ferrous Sulfate (Feosol) 300 mg GT DAILY [facility] Last Admin: 10/21/19 10:10 Dose: 300 mg Documented by: Heparin Sodium (Porcine) (Heparin -) 5,000 unit SQ BID [facility] Last Admin: 10/21/19 10:10 Dose: 5,000 unit Documented by: Sodium Chloride (1/2 Normal Saline) 1,000 mls @ 83 mls/hr IV ASDIR [facility] Last Admin: 10/21/19 03:49 Dose: 83 mls/hr Documented by: Vancomycin HCl (Vancomycin (Pre-Docked)) 1 gm in 250 mls @ 166.667 mls/hr IVPB 0100,1300 [facility]; Protocol Last Admin: 10/21/19 13:02 Dose: 166.667 mls/hr Documented by: Meropenem 1 gm/ Dextrose 100 mls @ 200 mls/hr IVPB Q8H-IV [facility] Last Admin: 10/21/19 10:07 Dose: 200 mls/hr Documented by: Insulin Aspart (Novolog Vial Sliding Scale -) 1 vial SQ Q6HPO [facility]; Protocol Last Admin: 10/21/19 11:41 Dose: 7 units Documented by: Insulin Detemir (Levemir Vial) 20 units SQ 0700,2200 [facility] Last Admin: 10/21/19 06:08 Dose: 20 units Documented by: Lactobacillus Acidophilus (Bacid -) 1 tab GT DAILY [facility] Last Admin: 10/21/19 10:16 Dose: 1 tab Documented by: Levetiracetam (Keppra Oral Solution -) 1,000 mg GT BID [facility] Last Admin: 10/21/19 10:10 Dose: 1,000 mg Documented by: Multivitamins/Minerals (Certavite-Antioxidant Liquid) 15 ml GT DAILY [facility] Last Admin: 10/21/19 10:14 Dose: 15 ml Documented by: Nystatin (Nystop Powder -) 1 applic TP BID [facility] Last Admin: 10/20/19 22:22 Dose: 1 applic Documented by: Pantoprazole Sodium (Protonix Iv) 40 mg IVPUSH DAILY [facility] Last Admin: 10/21/19 10:05 Dose: 40 mg Documented by: Prednisone (Deltasone -) 5 mg PEG DAILY [facility] Last Admin: 10/21/19 10:14 Dose: 5 mg Documented by: Valproate Sodium (Depakene -) 750 mg GT TID [facility] Last Admin: 10/21/19 05:38 Dose: 750 mg Documented by: Cardiovascular: Yes: S1, S2 Respiratory: Yes: Mechanically Ventilated, Diminished Gastrointestinal: Yes: Normal Bowel Sounds, Soft Neurological: Yes: Unresponsive Labs: Laboratory Results - last 24 hr 10/20/19 10/20/19 10/21/19 17:06 23:13 05:57 WBC RBC Hgb Hct MCV MCH MCHC RDW Plt Count MPV Absolute Neuts (auto) Neutrophils % Lymphocytes % Monocytes % Eosinophils % Basophils % Nucleated RBC % Hypochromia Platelet Estimate Polychromasia Poikilocytosis Anisocytosis Microcytosis Macrocytosis Tear Drop Cells Stomatocytes Sodium Potassium Chloride Carbon Dioxide Anion Gap BUN Creatinine Est GFR (CKD-EPI)AfAm Est GFR (CKD-EPI)NonAf POC Glucometer 358 317 357 Random Glucose Lactic Acid Calcium Total Bilirubin AST ALT Alkaline Phosphatase Total Protein Albumin Blood Type Antibody Screen Crossmatch 10/21/19 10/21/19 10/21/19 08:40 08:40 08:40 WBC 12.9 H RBC 3.35 L Hgb 7.1 L Hct 23.9 L MCV 71.3 L MCH 21.3 L MCHC 29.9 L RDW 18.1 H Plt Count 309 MPV 8.8 Absolute Neuts (auto) 8.8 H Neutrophils % 68.6 Lymphocytes % 20.4 Monocytes % 9.7 Eosinophils % 1.1 Basophils % 0.2 Nucleated RBC % 0 Hypochromia 2+ Platelet Estimate Normal Polychromasia 2+ Poikilocytosis 1+ Anisocytosis 3+ Microcytosis 3+ Macrocytosis 0 Tear Drop Cells 1+ Stomatocytes 1+ Sodium 142 Potassium 4.3 Chloride 110 H Carbon Dioxide 29 Anion Gap 3 L BUN 22.2 H Creatinine 0.5 L Est GFR (CKD-EPI)AfAm 112.86 Est GFR (CKD-EPI)NonAf 97.37 POC Glucometer Random Glucose 331 H Lactic Acid 2.2 H* Calcium 8.0 L Total Bilirubin 0.2 AST 60 H ALT 45 Alkaline Phosphatase 89 Total Protein 5.6 L Albumin 1.3 L Blood Type Antibody Screen Crossmatch 10/21/19 10/21/19 11:30 12:44 WBC RBC Hgb Hct MCV MCH MCHC RDW Plt Count MPV Absolute Neuts (auto) Neutrophils % Lymphocytes % Monocytes % Eosinophils % Basophils % Nucleated RBC % Hypochromia Platelet Estimate Polychromasia Poikilocytosis Anisocytosis Microcytosis Macrocytosis Tear Drop Cells Stomatocytes Sodium Potassium Chloride Carbon Dioxide Anion Gap BUN Creatinine Est GFR (CKD-EPI)AfAm Est GFR (CKD-EPI)NonAf POC Glucometer 326 Random Glucose Lactic Acid Calcium Total Bilirubin AST ALT Alkaline Phosphatase Total Protein Albumin Blood Type A POSITIVE Antibody Screen Negative Crossmatch See Detail Problem List - Problems (1) Lactic acid increased Code(s): E87.2 - ACIDOSIS (2) VESTA (acute kidney injury) Code(s): N17.9 - ACUTE KIDNEY FAILURE, UNSPECIFIED (3) Bacteremia Code(s): R78.81 - BACTEREMIA (4) CAD (coronary artery disease) Code(s): I25.10 - ATHSCL HEART DISEASE OF [place] CORONARY ARTERY W/O ANG PCTRS (5) COPD (chronic obstructive pulmonary disease) Code(s): J44.9 - CHRONIC OBSTRUCTIVE PULMONARY DISEASE, UNSPECIFIED (6) Gram-negative bacteremia Code(s): R78.81 - BACTEREMIA (7) History of CVA (cerebrovascular accident) Code(s): Z86.73 - PRSNL HX OF TIA (TIA), AND CEREB INFRC W/O RESID DEFICITS (8) Pneumonia Code(s): J18.9 - PNEUMONIA, UNSPECIFIED ORGANISM Qualifiers: Pneumonia type: due to unspecified organism Laterality: unspecified laterality Lung location: unspecified part of lung Qualified Code(s): J18.9 - Pneumonia, unspecified organism (9) Arteriosclerotic heart disease (ASHD) Code(s): I25.10 - ATHSCL HEART DISEASE OF [place] CORONARY ARTERY W/O ANG PCTRS (10) Diabetes Code(s): E11.9 - TYPE 2 DIABETES MELLITUS WITHOUT COMPLICATIONS (11) HTN (hypertension) Code(s): I10 - ESSENTIAL (PRIMARY) HYPERTENSION (12) S/P CABG (coronary artery bypass graft) Code(s): Z95.1 - PRESENCE OF AORTOCORONARY BYPASS GRAFT (13) Chronic respiratory failure Code(s): J96.10 - CHRONIC RESPIRATORY FAILURE, UNSP W HYPOXIA OR HYPERCAPNIA (14) Sepsis Code(s): A41.9 - SEPSIS, UNSPECIFIED ORGANISM (15) High glucose Code(s): R73.09 - OTHER ABNORMAL GLUCOSE IMP CHRONIC RESPIRATORY FAILURE S/P CVA WITH THROMBECTOMY UROSEPSIS GRAM NEG BACTEREMIA ? PNEUMONIA ELEVATED LACTATE LEVEL ASHD S/P CABG COPD HTN HLD DIASTOLIC HF SACRAL DECUBITUS VESTA ANEMIA PLAN VENT SUPPORT ON AC MODE IVF ABX PER ID MONITOR LYTES,RENAL FUNCTION, FOLLOW H+H WOUND CARE Dr Norman
[2019-10-21] MEDS: COLLAGENASE CLOSTRIDIUM HIST. 30 GRAMS TUBE TP SCH (14:10)
[2019-10-21] MEDS: NYSTATIN POWDER 100,000 UNITS/GM - 15 GM TOPICAL POWDER TP SCH ×2 (14:10→22:18)
--- NOTE | 2019-10-21 20:39 | PN ---
Progress Note, Physician History of Present Illness: Pt clinically the same. Tmax 101.8F. - Current Medication List Current Medications: Active Medications Acetaminophen (Tylenol Oral Solution -) 650 mg GT Q6H PRN PRN Reason: PAIN Last Admin: 10/21/19 11:43 Dose: 650 mg Documented by: Acetaminophen (Tylenol Oral Solution -) 650 mg PEG [employer] [facility] Stop: 10/21/19 23:59 Last Admin: 10/21/19 15:51 Dose: 650 mg Documented by: Albuterol/Ipratropium (Duoneb -) 1 amp NEB RQID [facility] Last Admin: 10/21/19 16:31 Dose: 1 amp Documented by: Allopurinol (Zyloprim -) 100 mg PEG DAILY [facility] Last Admin: 10/21/19 10:08 Dose: 100 mg Documented by: Amlodipine Besylate (Norvasc -) 5 mg PEG DAILY [facility] Last Admin: 10/21/19 10:16 Dose: 5 mg Documented by: Ascorbic Acid (Vitamin C Oral Solution -) 500 mg GT DAILY [facility] Last Admin: 10/21/19 10:14 Dose: 500 mg Documented by: Atorvastatin Calcium (Lipitor -) 80 mg PEG HS [facility] Last Admin: 10/20/19 22:10 Dose: 80 mg Documented by: Cholecalciferol (Vitamin D3 -) 1,000 unit GT DAILY [facility] Last Admin: 10/21/19 10:08 Dose: 1,000 unit Documented by: Collagenase (Santyl -) 1 applic TP DAILY [facility]; Protocol Last Admin: 10/21/19 14:10 Dose: 1 applic Documented by: Cyanocobalamin (Vitamin B12 -) 1,000 mcg PEG DAILY [facility] Last Admin: 10/21/19 10:16 Dose: 1,000 mcg Documented by: Ferrous Sulfate (Feosol) 300 mg GT DAILY [facility] Last Admin: 10/21/19 10:10 Dose: 300 mg Documented by: Heparin Sodium (Porcine) (Heparin -) 5,000 unit SQ BID [facility] Last Admin: 10/21/19 10:10 Dose: 5,000 unit Documented by: Sodium Chloride (1/2 Normal Saline) 1,000 mls @ 83 mls/hr IV ASDIR [facility] Last Admin: 10/21/19 14:16 Dose: Not Given Documented by: Vancomycin HCl (Vancomycin (Pre-Docked)) 1 gm in 250 mls @ 166.667 mls/hr IVPB 0100,1300 [facility]; Protocol Last Admin: 10/21/19 13:02 Dose: 166.667 mls/hr Documented by: Meropenem 1 gm/ Dextrose 100 mls @ 200 mls/hr IVPB Q8H-IV [facility] Last Admin: 10/21/19 20:33 Dose: 200 mls/hr Documented by: Insulin Aspart (Novolog Vial Sliding Scale -) 1 vial SQ Q6HPO [facility]; Protocol Last Admin: 10/21/19 17:48 Dose: 8 units Documented by: Insulin Detemir (Levemir Vial) 20 units SQ 0700,2200 [facility] Last Admin: 10/21/19 06:08 Dose: 20 units Documented by: Lactobacillus Acidophilus (Bacid -) 1 tab GT DAILY [facility] Last Admin: 10/21/19 10:16 Dose: 1 tab Documented by: Levetiracetam (Keppra Oral Solution -) 1,000 mg GT BID [facility] Last Admin: 10/21/19 10:10 Dose: 1,000 mg Documented by: Multivitamins/Minerals (Certavite-Antioxidant Liquid) 15 ml GT DAILY [facility] Last Admin: 10/21/19 10:14 Dose: 15 ml Documented by: Nystatin (Nystop Powder -) 1 applic TP BID [facility] Last Admin: 10/21/19 14:10 Dose: 1 applic Documented by: Pantoprazole Sodium (Protonix Iv) 40 mg IVPUSH DAILY [facility] Last Admin: 10/21/19 10:05 Dose: 40 mg Documented by: Prednisone (Deltasone -) 5 mg PEG DAILY [facility] Last Admin: 10/21/19 10:14 Dose: 5 mg Documented by: Valproate Sodium (Depakene -) 750 mg GT TID [facility] Last Admin: 10/21/19 14:30 Dose: 750 mg Documented by: - Objective Vital Signs: Vital Signs Temperature 99.0 F 10/21/19 16:30 Pulse Rate 80 10/21/19 16:30 Respiratory Rate 14 10/21/19 16:30 Blood Pressure 122/60 10/21/19 16:30 O2 Sat by Pulse Oximetry (%) 100 10/21/19 16:30 Constitutional: Yes: No Distress Eyes: Yes: Conjunctiva Clear Cardiovascular: Yes: Regular Rate and Rhythm Respiratory: Yes: Mechanically Ventilated, Rhonchi Gastrointestinal: Yes: Normal Bowel Sounds, Soft, Abdomen, Obese Genitourinary: Yes: Robbins Present Integumentary: Yes: Pressure Ulcer Wound/Incision: Yes: Dressing Dry and Intact Neurological: Yes: Other (obtunded) Labs: CBC, BMP 10/21/19 08:40 10/21/19 08:40 INR, PTT INR 1.05 (0.83-1.09) 10/17/19 18:47 Laboratory Last Values WBC 12.9 K/mm3 (4.0-10.0) H 10/21/19 08:40 RBC 3.35 M/mm3 (3.60-5.2) L 10/21/19 08:40 Hgb 7.1 GM/dL (10.7-15.3) L 10/21/19 08:40 Hct 23.9 % (32.4-45.2) L 10/21/19 08:40 MCV 71.3 fl (80-96) L 10/21/19 08:40 MCH 21.3 pg (25.7-33.7) L 10/21/19 08:40 MCHC 29.9 g/dl (32.0-36.0) L 10/21/19 08:40 RDW 18.1 % (11.6-15.6) H 10/21/19 08:40 Plt Count 309 K/MM3 (134-434) 10/21/19 08:40 MPV 8.8 fl (7.5-11.1) 10/21/19 08:40 Absolute Neuts (auto) 8.8 K/mm3 (1.5-8.0) H 10/21/19 08:40 Neutrophils % 68.6 % (42.8-82.8) 10/21/19 08:40 Lymphocytes % 20.4 % (8-40) 10/21/19 08:40 Monocytes % 9.7 % (3.8-10.2) 10/21/19 08:40 Eosinophils % 1.1 % (0-4.5) 10/21/19 08:40 Basophils % 0.2 % (0-2.0) 10/21/19 08:40 Nucleated RBC % 0 % (0-0) 10/21/19 08:40 Hypochromia 2+ 10/21/19 08:40 Platelet Estimate Normal 10/21/19 08:40 Polychromasia 2+ 10/21/19 08:40 Poikilocytosis 1+ 10/21/19 08:40 Anisocytosis 3+ 10/21/19 08:40 Microcytosis 3+ 10/21/19 08:40 Macrocytosis 0 10/21/19 08:40 Tear Drop Cells 1+ 10/21/19 08:40 Ovalocytes 1+ 10/17/19 18:47 Stomatocytes 1+ 10/21/19 08:40 PT with INR 12.40 SEC (9.7-13.0) 10/17/19 18:47 INR 1.05 (0.83-1.09) 10/17/19 18:47 PTT (Actin FS) 24.5 SECONDS (25.2-36.5) L 10/17/19 18:47 VBG pH 7.425 (7.310-7.410) H 10/17/19 18:40 POC VBG pCO2 45.2 mmHg (38-52) 10/17/19 18:40 POC VBG pO2 40.0 mmHg (28-48) 10/17/19 18:40 VBG HCO3 29.0 mmol/L (23-29) 10/17/19 18:40 VBG O2 Sat (Brice) 75.9 % (70-80) 10/17/19 18:40 VBG Base Excess 3.9 mmol/L (-2-2) H 10/17/19 18:40 Sodium 142 mmol/L (136-145) 10/21/19 08:40 Potassium 4.3 mmol/L (3.5-5.1) 10/21/19 08:40 Chloride 110 mmol/L (98-107) H 10/21/19 08:40 Carbon Dioxide 29 mmol/L (21-32) 10/21/19 08:40 Anion Gap 3 MMOL/L (8-16) L 10/21/19 08:40 BUN 22.2 mg/dL (7-18) H 10/21/19 08:40 Creatinine 0.5 mg/dL (0.55-1.3) L 10/21/19 08:40 Est GFR (CKD-EPI)AfAm 112.86 10/21/19 08:40 Est GFR (CKD-EPI)NonAf 97.37 10/21/19 08:40 POC Glucometer 358 UNITS (80-120) 10/21/19 17:46 Random Glucose 331 mg/dL (74-106) H 10/21/19 08:40 Hemoglobin A1c % 10.9 % (4.2-6.3) H 10/18/19 06:00 Lactic Acid 2.2 mmol/L (0.4-2.0) H* 10/21/19 08:40 Calcium 8.0 mg/dL (8.5-10.1) L 10/21/19 08:40 Iron 13 ug/dL (50-175) L 10/18/19 06:00 TIBC 145 ug/dL (250-450) L 10/18/19 06:00 Iron Saturation 8 % (17.5-39) L 10/18/19 06:00 Unsaturated IBC 132 ug/dL (200-275) L 10/18/19 06:00 Ferritin 636.2 ng/ml (8-388) H 10/18/19 06:00 Total Bilirubin 0.2 mg/dL (0.2-1) 10/21/19 08:40 AST 60 U/L (15-37) H 10/21/19 08:40 ALT 45 U/L (13-61) 10/21/19 08:40 Alkaline Phosphatase 89 U/L (45-117) 10/21/19 08:40 Troponin I < 0.02 ng/ml (0.00-0.05) 10/17/19 18:47 Total Protein 5.6 g/dl (6.4-8.2) L 10/21/19 08:40 Albumin 1.3 g/dl (3.4-5.0) L 10/21/19 08:40 Vitamin B12 > 2000 pg/ml (193-986) H 10/18/19 06:00 Beta-Hydroxybutyrate 1.9 mg/dL (0.2-2.8) 10/17/19 18:47 TSH 1.16 uIU/ml (0.358-3.74) 10/18/19 06:00 Free T4 0.98 ng/dl (0.76-1.46) 10/18/19 06:00 Urine Color Yellow 10/18/19 15:15 Urine Appearance Cloudy 10/18/19 15:15 Urine pH 5.0 (5.0-8.0) 10/18/19 15:15 Ur Specific Sawyer 1.020 (1.010-1.035) 10/18/19 15:15 Urine Protein 1+ (NEGATIVE) H 10/18/19 15:15 Urine Glucose (UA) Negative (NEGATIVE) 10/18/19 15:15 Urine Ketones Negative (NEGATIVE) 10/18/19 15:15 Urine Blood 3+ (NEGATIVE) H 10/18/19 15:15 Urine Nitrite Negative (NEGATIVE) 10/18/19 15:15 Urine Bilirubin Negative (NEGATIVE) 10/18/19 15:15 Urine Urobilinogen 0.2 mg/dL (0.2-1.0) 10/18/19 15:15 Ur Leukocyte Esterase 1+ (NEGATIVE) H 10/18/19 15:15 Urine WBC (Auto) 24 /uL (0-25.8) 10/18/19 15:15 Urine RBC (Auto) 196 /uL (0-23.9) 10/18/19 15:15 Urine Casts (Auto) 21 /uL (0-3.1) 10/18/19 15:15 U Pathogenic Cast Auto None /lpf (NEGATIVE) 10/18/19 15:15 U Epithel Cells (Auto) >36 /uL (0-25.1) 10/18/19 15:15 U Sm Round Cell (Auto) None 10/18/19 15:15 Urine Bacteria (Auto) 9 /uL (0-1359) 10/18/19 15:15 Ur Random Creatinine 45.0 mg/dL (30-150) 10/18/19 15:15 Ur Random Sodium < 18 MMOL/L (40-220) L 10/18/19 15:15 Ur Random Potassium 26.0 MMOL/L (25-125) 10/18/19 15:15 Ur Random Chloride < 11 MMOL/L (110-250) L 10/18/19 15:15 Stool Occult Blood Negative (NEGATIVE) 10/18/19 15:15 Random Vancomycin 5.8 ug/ml (5-26) 10/19/19 17:50 COVID-19 (KADEN) Not detected (Not Detected) 10/17/19 19:57 Blood Type A POSITIVE 10/21/19 12:44 Antibody Screen Negative 10/21/19 12:44 Crossmatch See Detail 10/21/19 12:44 Microbiology 10/19/19 18:00 Blood - Peripheral Venous Blood Culture - Preliminary NO GROWTH OBTAINED AFTER 48 HOURS, INCUBATION TO CONTINUE FOR 3 DAYS. 10/19/19 17:50 Blood - Peripheral Venous Blood Culture - Preliminary NO GROWTH OBTAINED AFTER 48 HOURS, INCUBATION TO CONTINUE FOR 3 DAYS. 10/17/19 20:36 Urine - Urine - Catheterized Urine Culture - Final Proteus Mirabilus - Esbl Produ 10/18/19 18:10 Sputum - Endotrachea Suction/Ventilator Gram Stain - Final 10/18/19 18:10 Sputum - Endotrachea Suction/Ventilator Sputum Culture - Preliminary Proteus Mirabilus - Esbl Produ Staphylococcus Latex Coag Pos 10/18/19 23:00 Decubiti Gram Stain - Final 10/18/19 23:00 Decubiti Wound Culture - Final Proteus Species Lactose Fermenting Neg Bacilli Pseudomonas Species 10/17/19 18:40 Blood - Peripheral Venous Blood Culture - Final Proteus Mirabilus - Esbl Produ 10/17/19 18:40 Blood - Peripheral Venous Blood Culture - Final Proteus Mirabilus - Esbl Produ 10/18/19 03:30 Urine - Urine Robbins Urine Culture - Final Proteus Mirabilus - Esbl Produ 10/18/19 18:10 Stool Clostridioides difficile Antigen - Final 10/18/19 18:10 Stool Clostridioides difficile Toxin Assay - Final Problem List - Problems (1) Gram-negative bacteremia Code(s): R78.81 - BACTEREMIA (2) History of CVA (cerebrovascular accident) Code(s): Z86.73 - PRSNL HX OF TIA (TIA), AND CEREB INFRC W/O RESID DEFICITS (3) CAD (coronary artery disease) Code(s): I25.10 - ATHSCL HEART DISEASE OF [place] CORONARY ARTERY W/O ANG PCTRS (4) Diarrhea Code(s): R19.7 - DIARRHEA, UNSPECIFIED (5) VESTA (acute kidney injury) Code(s): N17.9 - ACUTE KIDNEY FAILURE, UNSPECIFIED (6) Pneumonia Code(s): J18.9 - PNEUMONIA, UNSPECIFIED ORGANISM Qualifiers: Pneumonia type: due to unspecified organism Laterality: unspecified laterality Lung location: unspecified part of lung Qualified Code(s): J18.9 - Pneumonia, unspecified organism (7) Obese Code(s): E66.9 - OBESITY, UNSPECIFIED Qualifiers: Body mass index: BMI 60.0-69.9 (8) UTI (urinary tract infection) Code(s): N39.0 - URINARY TRACT INFECTION, SITE NOT SPECIFIED Qualifiers: Urinary tract infection type: site unspecified Hematuria presence: with hematuria Qualified Code(s): N39.0 - Urinary tract infection, site not specified; R31.9 - Hematuria, unspecified (9) Diabetes Code(s): E11.9 - TYPE 2 DIABETES MELLITUS WITHOUT COMPLICATIONS (10) HTN (hypertension) Code(s): I10 - ESSENTIAL (PRIMARY) HYPERTENSION (11) Hyperlipidemia Code(s): E78.5 - HYPERLIPIDEMIA, UNSPECIFIED (12) S/P CABG (coronary artery bypass graft) Code(s): Z95.1 - PRESENCE OF AORTOCORONARY BYPASS GRAFT (13) COPD (chronic obstructive pulmonary disease) Code(s): J44.9 - CHRONIC OBSTRUCTIVE PULMONARY DISEASE, UNSPECIFIED (14) Decubitus ulcer, stage 4 with infection Code(s): L89.94 - PRESSURE ULCER OF UNSPECIFIED SITE, STAGE 4; L08.9 - LOCAL INFECTION OF THE SKIN AND SUBCUTANEOUS TISSUE, UNSP (15) Lactic acid increased Code(s): E87.2 - ACIDOSIS (16) Metabolic encephalopathy Code(s): G93.41 - METABOLIC ENCEPHALOPATHY (17) Seizures Code(s): R56.9 - UNSPECIFIED CONVULSIONS (18) ESBL (extended spectrum beta-lactamase) producing bacteria infection Code(s): A49.9 - BACTERIAL INFECTION, UNSPECIFIED; Z16.12 - EXTENDED SPECTRUM BETA LACTAMASE (ESBL) RESISTANCE Assessment/Plan Sepsis Gram negative UTI with bacteremia ESBL + bacterial infection HCAP vs VAP Diarrhea Polymicrobial Sacral St IV DU infection/ likely OM Seizures Chronic respiratory failure s/p trach/MV Acute kidney injury Uncontrolled DM Morbid obesity Hx of CVA s/p thrombectomy CAD s/p CABG x 2 COPD Diastolic CHF HTN HLD -- Pt remains febrile. Lactic acid decreased today - continue monitor. -- continue Meropenem/ Vancomycin. Vancomycin trough tomorrow/monitor renal function. -- repeat blood cultures negative -- wound care/frequent turning -- Sacral DU ideally needs debridement. Overall poor prognosis for wound healing. -- Neurology to follow up. Meropenem will decrease systemic levels of Valproic acid - monitor for seizures. Pt on Keppra as well. -- monitor temp trend/ vitals closely Overall poor prognosis
[2019-10-21] MEDS: ATORVASTATIN CA 80 MG TABLET (FP) PEG SCH (22:18)
[2019-10-22] MEDS: INSULIN SLIDING SCALE (NOVOLOG) 1 VIAL SQ SCH ×4 (00:14→17:28)
[2019-10-22] MEDS: VANCOMYCIN 1 GRAM (PRE-DOCKED) 1 GM/250 ML BAG IVPB SCH ×2 (00:15→16:10)
[2019-10-22] MEDS ORDERED: MEROPENEM 1 GM VIAL (RESTRICTED TO ID) IVPB ONE ×3 (03:10→16:04)
[2019-10-22] MEDS ORDERED: DEXTROSE 5%-WATER 100 ML IVPB ONE ×3 (03:10→16:04)
[2019-10-22] MEDS: MEROPENEM 1 GM in DEXTROSE 5%-WATER 100 ML IVPB SCH ×3 (03:13→19:35)
[2019-10-22] MEDS: SODIUM CHLORIDE 0.45% 1,000 ML IV SCH ×4 (05:27→20:29)
[2019-10-22] MEDS: VALPROATE SODIUM 250 MG/5 ML UNIT DOSE CUP GT SCH ×3 (05:29→21:48)
[2019-10-22] MEDS: ACETAMINOPHEN 650 MG/20.3 ML ORAL SOLUTION (CUPS) GT PRN ×2 (05:29→11:23)
[2019-10-22] MEDS: INSULIN (LEVEMIR) 100 UNITS/ML UNITS SQ SCH ×2 (06:51→21:47)
[2019-10-22] MEDS: ALBUTEROL SO4 2.5/IPRATROPIUM 0.5 INH SOL 3 ML VIAL.NEB. NEB SCH ×4 (07:30→20:38)
[2019-10-22 09:11] LABS: BASO % 0.3 % (0-2.0); EOS % 1.5 % (0-4.5); HEMATOCRIT 28.5 % (32.4-45.2); HEMOGLOBIN 8.8 GM/dL (10.7-15.3); LYMPH % 21.9 % (8-40); MCH 22.9 pg (25.7-33.7); MEAN CELL VOLUME 73.9 fl (80-96); MEAN PLT VOLUME 8.7 fl (7.5-11.1); MONO % 8.3 % (3.8-10.2); PLATELET COUNT 307 K/MM3 (134-434); RBC 3.86 M/mm3 (3.60-5.2); RDW 19.5 % (11.6-15.6); WHITE BLOOD COUNT 12.6 K/mm3 (4.0-10.0)
[2019-10-22 09:36] LABS: ALBUMIN 1.3 g/dl (3.4-5.0); BILIRUBIN,TOTAL 0.2 mg/dL (0.2-1); BLOOD UREA NITROGEN 17.1 mg/dL (7-18); CALCIUM 8.5 mg/dL (8.5-10.1); CREATININE 0.5 mg/dL (0.55-1.3); POTASSIUM 4.3 mmol/L (3.5-5.1); TOT PROT 5.8 g/dl (6.4-8.2)
[2019-10-22 10:00] LABS: ANISOCYTOSIS 1+; MACROCYTOSIS 1+; PLATELET ESTIMATE NORMAL
[2019-10-22] MEDS: levETIRAcetam 500 MG/5 ML ORAL SOLUTION (UNIT-DOSE CUPS) GT SCH ×2 (10:16→21:48)
[2019-10-22] MEDS: CYANOCOBALAMIN 1,000 MCG TABLET (FP) PEG SCH (10:16)
[2019-10-22] MEDS: CHOLECALCIFEROL (VIT D3) 1,000 UNIT (25 MCG) TABLET GT SCH (10:16)
[2019-10-22] MEDS: FERROUS SO4 300 MG/5 ML ORAL SOLN UNIT DOSE CUPS GT SCH ×2 (10:16→21:48)
[2019-10-22] MEDS: LACTOBACILLUS ACIDOPHILUS 1 TABLET GT SCH (10:16)
[2019-10-22] MEDS: predniSONE 5 MG TABLET (UD) PEG SCH (10:16)
[2019-10-22] MEDS: HEPARIN NA (PORCINE) 5,000 UNITS/ML 1ML VIAL SQ SCH ×2 (10:17→21:48)
[2019-10-22] MEDS: ALLOPURINOL 100 MG TABLET (FP) PEG SCH (10:17)
[2019-10-22] MEDS: amLODIPine BESYLATE 5 MG TABLET (FP) PEG SCH (10:17)
[2019-10-22] MEDS: PANTOPRAZOLE SODIUM 40 MG VIAL IVPUSH SCH (10:18)
[2019-10-22] MEDS: ASCORBIC ACID 500 MG/5 ML UNIT DOSE CUP GT SCH (10:18)
[2019-10-22] MEDS: MULTIVIT-MINERALS ORAL LIQUID GT SCH (10:30)
--- NOTE | 2019-10-22 12:01 | PN ---
Progress Note, Physician Chief Complaint: Hyperglycemia Dehydration VESTA History of Present Illness: NAD obtunded Mech vented Remains febrile LA elevated On IV abx On rectal tube now - Current Medication List Current Medications: Active Medications Acetaminophen (Tylenol Oral Solution -) 650 mg GT Q6H PRN PRN Reason: PAIN Last Admin: 10/22/19 11:23 Dose: 650 mg Documented by: Albuterol/Ipratropium (Duoneb -) 1 amp NEB RQID [facility] Last Admin: 10/22/19 11:27 Dose: 1 amp Documented by: Allopurinol (Zyloprim -) 100 mg PEG DAILY [facility] Last Admin: 10/22/19 10:17 Dose: 100 mg Documented by: Amlodipine Besylate (Norvasc -) 5 mg PEG DAILY [facility] Last Admin: 10/22/19 10:17 Dose: 5 mg Documented by: Ascorbic Acid (Vitamin C Oral Solution -) 500 mg GT DAILY [facility] Last Admin: 10/22/19 10:18 Dose: 500 mg Documented by: Atorvastatin Calcium (Lipitor -) 80 mg PEG HS [facility] Last Admin: 10/21/19 22:18 Dose: 80 mg Documented by: Cholecalciferol (Vitamin D3 -) 1,000 unit GT DAILY [facility] Last Admin: 10/22/19 10:16 Dose: 1,000 unit Documented by: Collagenase (Santyl -) 1 applic TP DAILY [facility]; Protocol Last Admin: 10/21/19 14:10 Dose: 1 applic Documented by: Cyanocobalamin (Vitamin B12 -) 1,000 mcg PEG DAILY [facility] Last Admin: 10/22/19 10:16 Dose: 1,000 mcg Documented by: Ferrous Sulfate (Feosol) 300 mg GT DAILY [facility] Last Admin: 10/22/19 10:16 Dose: 300 mg Documented by: Heparin Sodium (Porcine) (Heparin -) 5,000 unit SQ BID [facility] Last Admin: 10/22/19 10:17 Dose: 5,000 unit Documented by: Sodium Chloride (1/2 Normal Saline) 1,000 mls @ 83 mls/hr IV ASDIR [facility] Last Admin: 10/22/19 05:27 Dose: 83 mls/hr Documented by: Vancomycin HCl (Vancomycin (Pre-Docked)) 1 gm in 250 mls @ 166.667 mls/hr IVPB 0100,1300 [facility]; Protocol Last Admin: 10/22/19 00:15 Dose: 166.667 mls/hr Documented by: Meropenem 1 gm/ Dextrose 100 mls @ 200 mls/hr IVPB Q8H-IV [facility] Last Admin: 10/22/19 10:56 Dose: 200 mls/hr Documented by: Insulin Aspart (Novolog Vial Sliding Scale -) 1 vial SQ Q6HPO [facility]; Protocol Last Admin: 10/22/19 06:50 Dose: 7 units Documented by: Insulin Detemir (Levemir Vial) 20 units SQ 0700,2200 [facility] Last Admin: 10/22/19 06:51 Dose: 20 units Documented by: Lactobacillus Acidophilus (Bacid -) 1 tab GT DAILY [facility] Last Admin: 10/22/19 10:16 Dose: 1 tab Documented by: Levetiracetam (Keppra Oral Solution -) 1,000 mg GT BID [facility] Last Admin: 10/22/19 10:16 Dose: 1,000 mg Documented by: Multivitamins/Minerals (Certavite-Antioxidant Liquid) 15 ml GT DAILY [facility] Last Admin: 10/22/19 10:30 Dose: 15 ml Documented by: Nystatin (Nystop Powder -) 1 applic TP BID [facility] Last Admin: 10/21/19 22:18 Dose: 1 applic Documented by: Pantoprazole Sodium (Protonix Iv) 40 mg IVPUSH DAILY [facility] Last Admin: 10/22/19 10:18 Dose: 40 mg Documented by: Prednisone (Deltasone -) 5 mg PEG DAILY [facility] Last Admin: 10/22/19 10:16 Dose: 5 mg Documented by: Valproate Sodium (Depakene -) 750 mg GT TID [facility] Last Admin: 10/22/19 05:29 Dose: 750 mg Documented by: - Objective Vital Signs: Vital Signs Temperature 101.4 F H 10/22/19 10:00 Pulse Rate 84 10/22/19 11:25 Respiratory Rate 23 H 10/22/19 11:25 Blood Pressure 128/60 10/22/19 10:00 O2 Sat by Pulse Oximetry (%) 99 10/22/19 11:27 Constitutional: Yes: Well Nourished, No Distress, Calm Cardiovascular: Yes: Regular Rate and Rhythm Respiratory: Yes: Regular, Mechanically Ventilated, Rhonchi (diffuse) Gastrointestinal: Yes: Normal Bowel Sounds, Soft, Abdomen, Obese Genitourinary: Yes: Robbins Present Extremities: Yes: Other (Generalized atrophy) Edema: No Peripheral Pulses WNL: Yes Integumentary: Yes: Pressure Ulcer (Sacral and BL heels) Neurological: Yes: Pre-Existing Deficit Labs: CBC, BMP 10/22/19 08:40 10/22/19 08:40 INR, PTT INR 1.05 (0.83-1.09) 10/17/19 18:47 Problem List - Problems (1) Metabolic encephalopathy Assessment/Plan: -Cultures: Microbiology 10/17/19 18:40 Blood - Peripheral Venous Blood Culture - Final Proteus Mirabilus - Esbl Produ 10/18/19 18:10 Sputum - Endotrachea Suction/Ventilator Gram Stain - Final 10/18/19 18:10 Sputum - Endotrachea Suction/Ventilator Sputum Culture - Final Proteus Mirabilus - Esbl Produ S Aureus 10/19/19 18:00 Blood - Peripheral Venous Blood Culture - Preliminary NO GROWTH OBTAINED AFTER 48 HOURS, INCUBATION TO CONTINUE FOR 3 DAYS. 10/19/19 17:50 Blood - Peripheral Venous Blood Culture - Preliminary NO GROWTH OBTAINED AFTER 48 HOURS, INCUBATION TO CONTINUE FOR 3 DAYS. 10/17/19 20:36 Urine - Urine - Catheterized Urine Culture - Final Proteus Mirabilus - Esbl Produ 10/18/19 23:00 Decubiti Gram Stain - Final 10/18/19 23:00 Decubiti Wound Culture - Final Proteus Species Lactose Fermenting Neg Bacilli Pseudomonas Species 10/17/19 18:40 Blood - Peripheral Venous Blood Culture - Final Proteus Mirabilus - Esbl Produ 10/18/19 03:30 Urine - Urine Robbins Urine Culture - Final Proteus Mirabilus - Esbl Produ 10/18/19 18:10 Stool Clostridioides difficile Antigen - Final 10/18/19 18:10 Stool Clostridioides difficile Toxin Assay - Final -ID consult -IV abx as per ID Problems reviewed: Yes Code(s): G93.41 - METABOLIC ENCEPHALOPATHY (2) VESTA (acute kidney injury) Assessment/Plan: -Nephrology consult -Gentle IVF -Monitor trend Problems reviewed: Yes Code(s): N17.9 - ACUTE KIDNEY FAILURE, UNSPECIFIED (3) Acute hypercapnic respiratory failure Assessment/Plan: -Pulmonary consult -Mech vent -Failed weaning trial this AM Problems reviewed: Yes Code(s): J96.02 - ACUTE RESPIRATORY FAILURE WITH HYPERCAPNIA (4) Diabetes Assessment/Plan: -BGM Q6H -A1c at 10.9 -ISS -Increase Levemir to 26 U BID -Endocrine consult Problems reviewed: Yes Code(s): E11.9 - TYPE 2 DIABETES MELLITUS WITHOUT COMPLICATIONS (5) Bacteremia Assessment/Plan: -ID consult -Febrile -Monitor labs -IV abx Problems reviewed: Yes Code(s): R78.81 - BACTEREMIA (6) Pneumonia Assessment/Plan: -CXR LLL infiltrate -ID consult -Pulmonary consult -COVID 19 Negative Problems reviewed: Yes Code(s): J18.9 - PNEUMONIA, UNSPECIFIED ORGANISM Qualifiers: Pneumonia type: due to unspecified organism Laterality: unspecified laterality Lung location: unspecified part of lung Qualified Code(s): J18.9 - Pneumonia, unspecified organism (7) MRSA (methicillin resistant staph aureus) culture positive Problems reviewed: Yes Code(s): Z22.322 - CARRIER OR SUSPECTED CARRIER OF METHICILLIN RESIS STAPH (8) Anemia Assessment/Plan: -FANNY -Stool OB negative -B12, thyroid profile unremarkable -S/P 1 U PRBC -Monitor trend Problems reviewed: Yes Code(s): D64.9 - ANEMIA, UNSPECIFIED (9) Diarrhea Assessment/Plan: -Continue rectal tube -Cdiff negative -On Bacid -Add Bannitrol Problems reviewed: Yes Code(s): R19.7 - DIARRHEA, UNSPECIFIED (10) Seizures Assessment/Plan: -Twitching noted in RUE -Seen by Neurology -No changes in Keppra and Depakote -Exacerbated by acute infection? Problems reviewed: Yes Code(s): R56.9 - UNSPECIFIED CONVULSIONS Assessment/Plan See problem list Overall poor prognosis Palliative care on board
--- NOTE | 2019-10-22 12:28 | CON.CARD ---
Consult Consult Specialty:: Cardiology - History of Present Illness History of Present Illness: 69 year old female with past medical history of diastolic congestive heart failure, coronary artery disease status post CABG x2, moderate-severe aortic regurgitation, moderate pulmonary HTN, ?hyperparathyroidism, obesity,COPD, IDDM, HTN, HLD, CVA s/p thrombectomy 09/2019 at [facility] with respiratory failure s/p tracheostomy and PEG tube who was sent from [facility] for hyperglycemia and "dehydration". Per AL, blood sugar was in the 400's and BUN 111/creatinine 1.6. and had a normal kidney function in the past. At baseline patient is slow to respond and keeps her eyes closed . 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 Cardio/Vascular: Yes: CAD, HTN, Hyperlipdemia Pulmonary: Yes: COPD Renal/: Yes: Renal Inusuff Infectious Disease: Yes: Other (oral abscess) Psych: Yes: Anxiety, Depression Musculoskeletal: Yes: Osteoarthritis Rheumatology: Yes: Gout Endocrine: Yes: Diabetes Mellitus, Hyperparathyroidism - Past Surgical History Past Surgical History: Yes: CABG Additional Surgical History: thrombectomy - Alcohol/Substance Use Hx Alcohol Use: No History of Substance Use: reports: None - Smoking History Smoking history: Unknown if ever smoked Have you smoked in the past 12 months: No Aproximately how many cigarettes per day: 0 If you are a former smoker, when did you quit?: about 30 years ago - Social History ADL: Independent History of Recent Travel: No Home Medications - Allergies Allergies/Adverse Reactions: Allergies Allergy/AdvReac Type Severity Reaction Status Date / Time aspirin Allergy Verified 10/17/19 17:51 Penicillins Allergy Hives Verified 10/17/19 17:51 codeine [Codeine] AdvReac HALLUCINATIONS, Verified 10/17/19 17:51 DROWSY morphine AdvReac HALLUCINATI Verified 10/17/19 17:51 ONS - Home Medications Home Medications: Ambulatory Orders Albuterol Sulfate [Proair Hfa -] 1 inh PO ASDIR PRN 90 Days hfa.aer.ad 05/17/15 Budesonide/Formeterol Fumarate [SYMBICORT 80/4.5mcg -] 2 inh IH BID 90 Days inhaler 05/17/15 Cholecalciferol (Vitamin D3) [Vitamin D3] 1,000 unit PO DAILY 01/18/17 Duloxetine HCl [Cymbalta] 30 mg PO AM 10/17/17 Gabapentin 400 mg PO TID PRN 01/18/17 Nitroglycerin [Nitrostat] 0.4 mg SL PRN 01/18/17 Pravastatin Sodium [Pravachol] 40 mg PO HS 01/18/17 Albuterol 2.5/Ipratropium 0.5 [Duoneb -] 1 neb IH QID 7 Days #30 vial.neb. 03/03/19 Albuterol 0.083% Nebulizer Sil [Ventolin 0.083% Nebulizer Soln -] 1 neb NEB Q4H PRN #30 vial 03/04/19 Cyanocobalamin [Vitamin B12 -] 1,000 mcg PO DAILY 08/23/19 Fluticasone Prop 0.05% Nasal [Flonase -] 1 - 2 spray NS BID 08/23/19 Isosorbide Mononitrate [Isosorbide Mononitrate ER] 60 mg PO DAILY 08/23/19 Lisinopril [Prinivil] 20 mg PO DAILY 08/23/19 Metoprolol Succinate [Toprol XL -] 25 mg PO AM 08/23/19 Pramipexole Di-HCl [Pramipexole ER] 0.5 mg PO TID 08/23/19 Torsemide 20 mg PO AM 08/23/19 Allopurinol [Zyloprim -] 100 mg PO DAILY #30 tablet 08/31/19 Amlodipine Besylate [Norvasc -] 5 mg PO DAILY #30 tablet 08/31/19 metFORMIN HCL [Glucophage -] 500 mg PO BID@0700,1630 tablet 08/31/19 predniSONE [Deltasone -] 5 mg PO DAILY #20 tablet 08/31/19 Vital Signs: Vital Signs Temperature 101.4 F H 10/22/19 10:00 Pulse Rate 84 10/22/19 11:25 Respiratory Rate 23 H 10/22/19 11:25 Blood Pressure 128/60 10/22/19 10:00 O2 Sat by Pulse Oximetry (%) 99 10/22/19 11:27 Constitutional: Yes: Well Nourished, No Distress, Calm Eyes: Yes: WNL, Conjunctiva Clear, EOM Intact HENT: Yes: WNL, Atraumatic, Normocephalic Neck: Yes: WNL, Supple, Trachea Midline Respiratory: Yes: Diminished, Mechanically Ventilated, Rhonchi Gastrointestinal: Yes: WNL, Normal Bowel Sounds Renal/: Yes: WNL Cardiovascular: Yes: WNL, Regular Rate and Rhythm Musculoskeletal: Yes: WNL Extremities: Yes: WNL Integumentary: Yes: WNL ...Motor Strength: WNL Psychiatric: Yes: WNL, Alert, Oriented - Other Data Labs, Other Data: CBC, BMP 10/22/19 08:40 10/22/19 08:40 INR, PTT INR 1.05 (0.83-1.09) 10/17/19 18:47 Imaging - Results Chest X-ray: Image Reviewed (s/p tracheostomy) EKG: Image Reviewed (str old ant wall mi, rep abn inferio-lateral) Problem List - Problems (1) VESTA (acute kidney injury) Code(s): N17.9 - ACUTE KIDNEY FAILURE, UNSPECIFIED (2) Anemia Code(s): D64.9 - ANEMIA, UNSPECIFIED (3) Bacteremia Code(s): R78.81 - BACTEREMIA (4) CAD (coronary artery disease) Code(s): I25.10 - ATHSCL HEART DISEASE OF [place] CORONARY ARTERY W/O ANG PCTRS (5) COPD (chronic obstructive pulmonary disease) Code(s): J44.9 - CHRONIC OBSTRUCTIVE PULMONARY DISEASE, UNSPECIFIED (6) Chronic respiratory failure Code(s): J96.10 - CHRONIC RESPIRATORY FAILURE, UNSP W HYPOXIA OR HYPERCAPNIA (7) Decubitus ulcer, stage 4 with infection Code(s): L89.94 - PRESSURE ULCER OF UNSPECIFIED SITE, STAGE 4; L08.9 - LOCAL INFECTION OF THE SKIN AND SUBCUTANEOUS TISSUE, UNSP (8) Diarrhea Code(s): R19.7 - DIARRHEA, UNSPECIFIED (9) ESBL (extended spectrum beta-lactamase) producing bacteria infection Code(s): A49.9 - BACTERIAL INFECTION, UNSPECIFIED; Z16.12 - EXTENDED SPECTRUM BETA LACTAMASE (ESBL) RESISTANCE (10) Gram-negative bacteremia Code(s): R78.81 - BACTEREMIA (11) High glucose Code(s): R73.09 - OTHER ABNORMAL GLUCOSE (12) History of CVA (cerebrovascular accident) Code(s): Z86.73 - PRSNL HX OF TIA (TIA), AND CEREB INFRC W/O RESID DEFICITS (13) Lactic acid increased Code(s): E87.2 - ACIDOSIS (14) MRSA (methicillin resistant staph aureus) culture positive Code(s): Z22.322 - CARRIER OR SUSPECTED CARRIER OF METHICILLIN RESIS STAPH (15) Metabolic encephalopathy Code(s): G93.41 - METABOLIC ENCEPHALOPATHY (16) Pneumonia Code(s): J18.9 - PNEUMONIA, UNSPECIFIED ORGANISM Qualifiers: Pneumonia type: due to unspecified organism Laterality: unspecified laterality Lung location: unspecified part of lung Qualified Code(s): J18.9 - Pneumonia, unspecified organism (17) Seizures Code(s): R56.9 - UNSPECIFIED CONVULSIONS (18) Sepsis Code(s): A41.9 - SEPSIS, UNSPECIFIED ORGANISM (19) ACS (acute coronary syndrome) Code(s): I24.9 - ACUTE ISCHEMIC HEART DISEASE, UNSPECIFIED (20) Acute hypercapnic respiratory failure Code(s): J96.02 - ACUTE RESPIRATORY FAILURE WITH HYPERCAPNIA (21) Acute pain of left foot Code(s): M79.672 - PAIN IN LEFT FOOT (22) Bursitis of hip Code(s): M70.70 - OTHER BURSITIS OF HIP, UNSPECIFIED HIP (23) CHF exacerbation Code(s): I50.9 - HEART FAILURE, UNSPECIFIED Qualifiers: Heart failure type: unspecified Qualified Code(s): I50.9 - Heart failure, unspecified (24) COPD exacerbation Code(s): J44.1 - CHRONIC OBSTRUCTIVE PULMONARY DISEASE W (ACUTE) EXACERBATION (25) Cellulitis Code(s): L03.90 - CELLULITIS, UNSPECIFIED Qualifiers: Site of cellulitis: extremity Site of cellulitis of extremity: toe (26) Chest pain Code(s): R07.9 - CHEST PAIN, UNSPECIFIED (27) Depression Code(s): F32.9 - MAJOR DEPRESSIVE DISORDER, SINGLE EPISODE, UNSPECIFIED (28) Dysphagia Code(s): R13.10 - DYSPHAGIA, UNSPECIFIED Qualifiers: Dysphagia type: unspecified Qualified Code(s): R13.10 - Dysphagia, unspecified (29) Fall Code(s): W19.XXXA - UNSPECIFIED FALL, INITIAL ENCOUNTER Qualifiers: Encounter type: initial encounter Qualified Code(s): W19.XXXA - Unspecified fall, initial encounter (30) Foot fracture, left Code(s): S92.902A - UNSP FRACTURE OF LEFT FOOT, INIT ENCNTR FOR CLOSED FRACTURE Qualifiers: Encounter type: initial encounter Fracture type: closed Qualified Code(s): S92.902A - Unspecified fracture of left foot, initial encounter for closed fracture (31) Gout Code(s): M10.9 - GOUT, UNSPECIFIED Qualifiers: Gout site: toe Gout etiology: idiopathic Chronicity: acute Laterality: left Qualified Code(s): M10.072 - Idiopathic gout, left ankle and foot (32) Head trauma Code(s): S09.90XA - UNSPECIFIED INJURY OF HEAD, INITIAL ENCOUNTER Qualifiers: Encounter type: initial encounter Qualified Code(s): S09.90XA - Unspecified injury of head, initial encounter (33) Hearing loss Code(s): H91.90 - UNSPECIFIED HEARING LOSS, UNSPECIFIED EAR Qualifiers: Hearing loss type: presbycusis Laterality: bilateral Qualified Code(s): H91.13 - Presbycusis, bilateral (34) Hypomagnesemia Code(s): E83.42 - HYPOMAGNESEMIA (35) Need for tetanus booster Code(s): Z23 - ENCOUNTER FOR IMMUNIZATION (36) Obese Code(s): E66.9 - OBESITY, UNSPECIFIED Qualifiers: Body mass index: BMI 60.0-69.9 (37) Right calf pain Code(s): M79.661 - PAIN IN RIGHT LOWER LEG (38) SOB (shortness of breath) Code(s): R06.02 - SHORTNESS OF BREATH (39) Sedentary lifestyle Code(s): Z91.89 - OTH PERSONAL RISK FACTORS, NOT ELSEWHERE CLASSIFIED (40) Sleep apnea Code(s): G47.30 - SLEEP APNEA, UNSPECIFIED (41) Stroke Code(s): I63.9 - CEREBRAL INFARCTION, UNSPECIFIED Qualifiers: CVA mechanism: thrombosis Precerebral and cerebral artery: middle cerebral artery Laterality of affected vessel: right Qualified Code(s): I63.311 - Cerebral infarction due to thrombosis of right middle cerebral artery (42) Throat pain Code(s): R07.0 - PAIN IN THROAT (43) Tooth pain Code(s): K08.8 - OTHER SPECIFIED DISORDERS OF TEETH AND SUPPOR * DO NOT USE * (44) UTI (urinary tract infection) Code(s): N39.0 - URINARY TRACT INFECTION, SITE NOT SPECIFIED Qualifiers: Urinary tract infection type: site unspecified Hematuria presence: with hematuria Qualified Code(s): N39.0 - Urinary tract infection, site not specified; R31.9 - Hematuria, unspecified (45) Weakness Code(s): R53.1 - WEAKNESS (46) Arteriosclerotic heart disease (ASHD) Code(s): I25.10 - ATHSCL HEART DISEASE OF [place] CORONARY ARTERY W/O ANG PCTRS (47) DVT prophylaxis Code(s): MFL9862 - (48) Diabetes Code(s): E11.9 - TYPE 2 DIABETES MELLITUS WITHOUT COMPLICATIONS (49) HTN (hypertension) Code(s): I10 - ESSENTIAL (PRIMARY) HYPERTENSION (50) Hyperlipidemia Code(s): E78.5 - HYPERLIPIDEMIA, UNSPECIFIED (51) S/P CABG (coronary artery bypass graft) Code(s): Z95.1 - PRESENCE OF AORTOCORONARY BYPASS GRAFT Assessment/Plan 69 year old female with past medical history of diastolic congestive heart failure, coronary artery disease status post CABG x2, moderate-severe aortic regurgitation, moderate pulmonary HTN, ?hyperparathyroidism, obesity,COPD, IDDM, HTN, HLD, CVA s/p thrombectomy 09/2019 at [facility] with respiratory failure s/p tracheostomy and PEG tube who was sent from [facility] for hyperglycemia and "dehydration". Plan ABX resp support DVT plx IVF Cardiac [facility] stable
[2019-10-22] MEDS: COLLAGENASE CLOSTRIDIUM HIST. 30 GRAMS TUBE TP SCH (12:32)
[2019-10-22] MEDS: NYSTATIN POWDER 100,000 UNITS/GM - 15 GM TOPICAL POWDER TP SCH ×2 (12:33→21:49)
--- NOTE | 2019-10-22 13:05 | PN ---
Progress Note (short form) - Note Progress Note: Unresponsive on AC mode of vent. Blood transfusion overnight. No change in overall condition. NAD. No acute events overnight. Intake & Output 10/19/19 10/20/19 10/21/19 10/22/19 23:59 23:59 23:59 23:59 Intake Total 3725 3424 4226 1783 Output Total 2200 2700 2600 Balance 5736 476 4516 1783 Weight 185 lb 9.6 oz 190 lb 6.4 oz 190 lb 14.4 oz Last Vital Signs Temp Pulse Resp BP Pulse Ox 101.4 F H 84 23 H 128/60 99 10/22/19 10:00 10/22/19 11:25 10/22/19 11:25 10/22/19 10:00 10/22/19 11:27 Active Medications Acetaminophen (Tylenol Oral Solution -) 650 mg GT Q6H PRN PRN Reason: PAIN Last Admin: 10/22/19 11:23 Dose: 650 mg Documented by: Albuterol/Ipratropium (Duoneb -) 1 amp NEB RQID [facility] Last Admin: 10/22/19 11:27 Dose: 1 amp Documented by: Allopurinol (Zyloprim -) 100 mg PEG DAILY [facility] Last Admin: 10/22/19 10:17 Dose: 100 mg Documented by: Amlodipine Besylate (Norvasc -) 5 mg PEG DAILY [facility] Last Admin: 10/22/19 10:17 Dose: 5 mg Documented by: Ascorbic Acid (Vitamin C Oral Solution -) 500 mg GT DAILY [facility] Last Admin: 10/22/19 10:18 Dose: 500 mg Documented by: Atorvastatin Calcium (Lipitor -) 80 mg PEG HS [facility] Last Admin: 10/21/19 22:18 Dose: 80 mg Documented by: Banana Based Medical Food (Banatrol Plus Powder Packet) 1 packet PO TID [facility] Cholecalciferol (Vitamin D3 -) 1,000 unit GT DAILY [facility] Last Admin: 10/22/19 10:16 Dose: 1,000 unit Documented by: Collagenase (Santyl -) 1 applic TP DAILY [facility]; Protocol Last Admin: 10/22/19 12:32 Dose: 1 applic Documented by: Cyanocobalamin (Vitamin B12 -) 1,000 mcg PEG DAILY [facility] Last Admin: 10/22/19 10:16 Dose: 1,000 mcg Documented by: Ferrous Sulfate (Feosol) 300 mg GT BID [facility] Heparin Sodium (Porcine) (Heparin -) 5,000 unit SQ BID [facility] Last Admin: 10/22/19 10:17 Dose: 5,000 unit Documented by: Sodium Chloride (1/2 Normal Saline) 1,000 mls @ 83 mls/hr IV ASDIR [facility] Last Admin: 10/22/19 05:27 Dose: 83 mls/hr Documented by: Vancomycin HCl (Vancomycin (Pre-Docked)) 1 gm in 250 mls @ 166.667 mls/hr IVPB 0100,1300 [facility]; Protocol Last Admin: 10/22/19 00:15 Dose: 166.667 mls/hr Documented by: Meropenem 1 gm/ Dextrose 100 mls @ 200 mls/hr IVPB Q8H-IV [facility] Last Admin: 10/22/19 10:56 Dose: 200 mls/hr Documented by: Insulin Aspart (Novolog Vial Sliding Scale -) 1 vial SQ Q6HPO [facility]; Protocol Last Admin: 10/22/19 12:32 Dose: 7 units Documented by: Insulin Detemir (Levemir Vial) 26 units SQ 0700,2200 [facility] Lactobacillus Acidophilus (Bacid -) 1 tab GT DAILY [facility] Last Admin: 10/22/19 10:16 Dose: 1 tab Documented by: Levetiracetam (Keppra Oral Solution -) 1,000 mg GT BID [facility] Last Admin: 10/22/19 10:16 Dose: 1,000 mg Documented by: Multivitamins/Minerals (Certavite-Antioxidant Liquid) 15 ml GT DAILY [facility] Last Admin: 10/22/19 10:30 Dose: 15 ml Documented by: Nystatin (Nystop Powder -) 1 applic TP BID [facility] Last Admin: 10/22/19 12:33 Dose: 1 applic Documented by: Pantoprazole Sodium (Protonix Iv) 40 mg IVPUSH DAILY [facility] Last Admin: 10/22/19 10:18 Dose: 40 mg Documented by: Prednisone (Deltasone -) 5 mg PEG DAILY [facility] Last Admin: 10/22/19 10:16 Dose: 5 mg Documented by: Valproate Sodium (Depakene -) 750 mg GT TID [facility] Last Admin: 10/22/19 05:29 Dose: 750 mg Documented by: Cardiovascular: Yes: S1, S2 Respiratory: Yes: Mechanically Ventilated, Diminished Gastrointestinal: Yes: Normal Bowel Sounds, Soft Neurological: Yes: Unresponsive Labs: Laboratory Results - last 24 hr 10/21/19 10/21/19 10/22/19 12:44 17:46 00:12 WBC RBC Hgb Hct MCV MCH MCHC RDW Plt Count MPV Absolute Neuts (auto) Neutrophils % Neutrophils % (Manual) Band Neutrophils % Lymphocytes % Lymphocytes % (Manual) Monocytes % Monocytes % (Manual) Eosinophils % Eosinophils % (Manual) Basophils % Basophils % (Manual) Myelocytes % (Man) Promyelocytes % (Man) Blast Cells % (Manual) Nucleated RBC % Metamyelocytes Hypochromia Platelet Estimate Polychromasia Poikilocytosis Basophilic Stippling Anisocytosis Microcytosis Macrocytosis Sodium Potassium Chloride Carbon Dioxide Anion Gap BUN Creatinine Est GFR (CKD-EPI)AfAm Est GFR (CKD-EPI)NonAf POC Glucometer 358 344 Random Glucose Lactic Acid Calcium Total Bilirubin AST ALT Alkaline Phosphatase Total Protein Albumin Blood Type A POSITIVE Antibody Screen Negative Crossmatch See Detail 10/22/19 10/22/19 10/22/19 06:45 08:40 08:40 WBC 12.6 H RBC 3.86 Hgb 8.8 L Hct 28.5 L D MCV 73.9 L MCH 22.9 L MCHC 31.0 L RDW 19.5 H Plt Count 307 MPV 8.7 Absolute Neuts (auto) 8.5 H Neutrophils % 68.0 Neutrophils % (Manual) 71.0 Band Neutrophils % 1.0 Lymphocytes % 21.9 Lymphocytes % (Manual) 20.0 D Monocytes % 8.3 Monocytes % (Manual) 2 L Eosinophils % 1.5 Eosinophils % (Manual) 3.0 D Basophils % 0.3 Basophils % (Manual) 0.0 Myelocytes % (Man) 1 D Promyelocytes % (Man) 0 Blast Cells % (Manual) 0 Nucleated RBC % 2 H Metamyelocytes 2 D Hypochromia 0 Platelet Estimate Normal Polychromasia 1+ Poikilocytosis 1+ Basophilic Stippling 1+ Anisocytosis 1+ Microcytosis 1+ Macrocytosis 1+ Sodium 141 Potassium 4.3 Chloride 106 Carbon Dioxide 28 Anion Gap 6 L BUN 17.1 Creatinine 0.5 L Est GFR (CKD-EPI)AfAm 112.86 Est GFR (CKD-EPI)NonAf 97.37 POC Glucometer 306 Random Glucose 286 H Lactic Acid Calcium 8.5 Total Bilirubin 0.2 AST 62 H ALT 52 Alkaline Phosphatase 102 Total Protein 5.8 L Albumin 1.3 L Blood Type Antibody Screen Crossmatch 10/22/19 10/22/19 08:40 11:56 WBC RBC Hgb Hct MCV MCH MCHC RDW Plt Count MPV Absolute Neuts (auto) Neutrophils % Neutrophils % (Manual) Band Neutrophils % Lymphocytes % Lymphocytes % (Manual) Monocytes % Monocytes % (Manual) Eosinophils % Eosinophils % (Manual) Basophils % Basophils % (Manual) Myelocytes % (Man) Promyelocytes % (Man) Blast Cells % (Manual) Nucleated RBC % Metamyelocytes Hypochromia Platelet Estimate Polychromasia Poikilocytosis Basophilic Stippling Anisocytosis Microcytosis Macrocytosis Sodium Potassium Chloride Carbon Dioxide Anion Gap BUN Creatinine Est GFR (CKD-EPI)AfAm Est GFR (CKD-EPI)NonAf POC Glucometer 304 Random Glucose Lactic Acid 2.2 H* Calcium Total Bilirubin AST ALT Alkaline Phosphatase Total Protein Albumin Blood Type Antibody Screen Crossmatch Problem List - Problems (1) Lactic acid increased Code(s): E87.2 - ACIDOSIS (2) VESTA (acute kidney injury) Code(s): N17.9 - ACUTE KIDNEY FAILURE, UNSPECIFIED (3) Bacteremia Code(s): R78.81 - BACTEREMIA (4) CAD (coronary artery disease) Code(s): I25.10 - ATHSCL HEART DISEASE OF [place] CORONARY ARTERY W/O ANG PCTRS (5) COPD (chronic obstructive pulmonary disease) Code(s): J44.9 - CHRONIC OBSTRUCTIVE PULMONARY DISEASE, UNSPECIFIED (6) Gram-negative bacteremia Code(s): R78.81 - BACTEREMIA (7) History of CVA (cerebrovascular accident) Code(s): Z86.73 - PRSNL HX OF TIA (TIA), AND CEREB INFRC W/O RESID DEFICITS (8) Pneumonia Code(s): J18.9 - PNEUMONIA, UNSPECIFIED ORGANISM Qualifiers: Pneumonia type: due to unspecified organism Laterality: unspecified laterality Lung location: unspecified part of lung Qualified Code(s): J18.9 - Pneumonia, unspecified organism (9) Arteriosclerotic heart disease (ASHD) Code(s): I25.10 - ATHSCL HEART DISEASE OF [place] CORONARY ARTERY W/O ANG PCTRS (10) Diabetes Code(s): E11.9 - TYPE 2 DIABETES MELLITUS WITHOUT COMPLICATIONS (11) HTN (hypertension) Code(s): I10 - ESSENTIAL (PRIMARY) HYPERTENSION (12) S/P CABG (coronary artery bypass graft) Code(s): Z95.1 - PRESENCE OF AORTOCORONARY BYPASS GRAFT (13) Chronic respiratory failure Code(s): J96.10 - CHRONIC RESPIRATORY FAILURE, UNSP W HYPOXIA OR HYPERCAPNIA (14) Sepsis Code(s): A41.9 - SEPSIS, UNSPECIFIED ORGANISM (15) High glucose Code(s): R73.09 - OTHER ABNORMAL GLUCOSE IMP CHRONIC RESPIRATORY FAILURE S/P CVA WITH THROMBECTOMY UROSEPSIS GRAM NEG BACTEREMIA ? PNEUMONIA ELEVATED LACTATE LEVEL ASHD S/P CABG COPD HTN HLD DIASTOLIC HF SACRAL DECUBITUS VESTA ANEMIA PLAN VENT SUPPORT ON AC MODE IVF ABX PER ID MONITOR LYTES,RENAL FUNCTION, WOUND CARE GOC still being discussed Dr Norman
--- NOTE | 2019-10-22 13:37 | PN ---
Progress Note, Physician History of Present Illness: Pt seen and examined at bedside. She remains lethargic. - Current Medication List Current Medications: Active Medications Acetaminophen (Tylenol Oral Solution -) 650 mg GT Q6H PRN PRN Reason: PAIN Last Admin: 10/22/19 11:23 Dose: 650 mg Documented by: Albuterol/Ipratropium (Duoneb -) 1 amp NEB RQID [facility] Last Admin: 10/22/19 11:27 Dose: 1 amp Documented by: Allopurinol (Zyloprim -) 100 mg PEG DAILY [facility] Last Admin: 10/22/19 10:17 Dose: 100 mg Documented by: Amlodipine Besylate (Norvasc -) 5 mg PEG DAILY [facility] Last Admin: 10/22/19 10:17 Dose: 5 mg Documented by: Ascorbic Acid (Vitamin C Oral Solution -) 500 mg GT DAILY [facility] Last Admin: 10/22/19 10:18 Dose: 500 mg Documented by: Atorvastatin Calcium (Lipitor -) 80 mg PEG HS [facility] Last Admin: 10/21/19 22:18 Dose: 80 mg Documented by: Banana Based Medical Food (Banatrol Plus Powder Packet) 1 packet PO TID [facility] Cholecalciferol (Vitamin D3 -) 1,000 unit GT DAILY [facility] Last Admin: 10/22/19 10:16 Dose: 1,000 unit Documented by: Collagenase (Santyl -) 1 applic TP DAILY [facility]; Protocol Last Admin: 10/22/19 12:32 Dose: 1 applic Documented by: Cyanocobalamin (Vitamin B12 -) 1,000 mcg PEG DAILY [facility] Last Admin: 10/22/19 10:16 Dose: 1,000 mcg Documented by: Ferrous Sulfate (Feosol) 300 mg GT BID [facility] Heparin Sodium (Porcine) (Heparin -) 5,000 unit SQ BID [facility] Last Admin: 10/22/19 10:17 Dose: 5,000 unit Documented by: Sodium Chloride (1/2 Normal Saline) 1,000 mls @ 83 mls/hr IV ASDIR [facility] Last Admin: 10/22/19 13:29 Dose: Not Given Documented by: Vancomycin HCl (Vancomycin (Pre-Docked)) 1 gm in 250 mls @ 166.667 mls/hr IVPB 0100,1300 [facility]; Protocol Last Admin: 10/22/19 00:15 Dose: 166.667 mls/hr Documented by: Meropenem 1 gm/ Dextrose 100 mls @ 200 mls/hr IVPB Q8H-IV [facility] Last Admin: 10/22/19 10:56 Dose: 200 mls/hr Documented by: Insulin Aspart (Novolog Vial Sliding Scale -) 1 vial SQ Q6HPO [facility]; Protocol Last Admin: 10/22/19 12:32 Dose: 7 units Documented by: Insulin Detemir (Levemir Vial) 26 units SQ 0700,2200 [facility] Lactobacillus Acidophilus (Bacid -) 1 tab GT DAILY [facility] Last Admin: 10/22/19 10:16 Dose: 1 tab Documented by: Levetiracetam (Keppra Oral Solution -) 1,000 mg GT BID [facility] Last Admin: 10/22/19 10:16 Dose: 1,000 mg Documented by: Multivitamins/Minerals (Certavite-Antioxidant Liquid) 15 ml GT DAILY [facility] Last Admin: 10/22/19 10:30 Dose: 15 ml Documented by: Nystatin (Nystop Powder -) 1 applic TP BID [facility] Last Admin: 10/22/19 12:33 Dose: 1 applic Documented by: Pantoprazole Sodium (Protonix Iv) 40 mg IVPUSH DAILY [facility] Last Admin: 10/22/19 10:18 Dose: 40 mg Documented by: Prednisone (Deltasone -) 5 mg PEG DAILY [facility] Last Admin: 10/22/19 10:16 Dose: 5 mg Documented by: Valproate Sodium (Depakene -) 750 mg GT TID [facility] Last Admin: 10/22/19 13:28 Dose: 750 mg Documented by: - Objective Vital Signs: Vital Signs Temperature 101.4 F H 10/22/19 10:00 Pulse Rate 84 10/22/19 11:25 Respiratory Rate 23 H 10/22/19 11:25 Blood Pressure 128/60 10/22/19 10:00 O2 Sat by Pulse Oximetry (%) 99 10/22/19 11:27 Constitutional: Yes: Calm Eyes: Yes: Conjunctiva Clear Cardiovascular: Yes: S1, S2 Respiratory: Yes: Mechanically Ventilated Gastrointestinal: Yes: Soft Genitourinary: Yes: Incontinence Musculoskeletal: Yes: Muscle Weakness Edema: No Neurological: Yes: Lethargy Labs: CBC, BMP 10/22/19 08:40 10/22/19 08:40 INR, PTT INR 1.05 (0.83-1.09) 07/15/20 18:47 Assessment/Plan Current Medications Generic Name Dose Route Start Last Admin Trade Name Freq PRN Reason Stop Dose Admin Acetaminophen 650 mg 10/18/19 12:21 10/22/19 11:23 Tylenol Oral Solution - GT 650 mg Q6H PRN Administration PAIN Albuterol/Ipratropium 1 amp 10/18/19 08:00 10/22/19 11:27 Duoneb - NEB 1 amp RQID [facility] Administration Allopurinol 100 mg 10/18/19 10:00 10/22/19 10:17 Zyloprim - PEG 100 mg DAILY [facility] Administration Amlodipine Besylate 5 mg 10/18/19 10:00 10/22/19 10:17 Norvasc - PEG 5 mg DAILY [facility] Administration Ascorbic Acid 500 mg 10/18/19 13:00 10/22/19 10:18 Vitamin C Oral Solution - GT 500 mg DAILY [facility] Administration Atorvastatin Calcium 80 mg 10/18/19 22:00 10/21/19 22:18 Lipitor - PEG 80 mg HS [facility] Administration Banana Based Medical Food 1 packet 10/22/19 14:00 Banatrol Plus Powder Packet PO TID [facility] Cholecalciferol 1,000 unit 10/20/19 07:36 10/22/19 10:16 Vitamin D3 - GT 1,000 unit DAILY [facility] Administration Collagenase 1 applic 10/18/19 13:00 10/22/19 12:32 Santyl - TP 1 applic DAILY [facility] Administration Protocol Cyanocobalamin 1,000 mcg 10/20/19 07:36 10/22/19 10:16 Vitamin B12 - PEG 1,000 mcg DAILY [facility] Administration Ferrous Sulfate 300 mg 10/22/19 22:00 Feosol GT BID [facility] Heparin Sodium (Porcine) 5,000 unit 10/18/19 22:15 10/22/19 10:17 Heparin - SQ 5,000 unit BID [facility] Administration Sodium Chloride 1,000 mls @ 83 mls/hr 10/19/19 12:39 10/22/19 13:29 1/2 Normal Saline IV Not Given ASDIR [facility] Vancomycin HCl 1 gm in 250 mls @ 166.667 mls/hr 10/20/19 13:00 10/22/19 00:15 Vancomycin (Pre-Docked) IVPB 166.667 mls/hr 0100,1300 [facility] Administration Protocol Meropenem 1 gm/ Dextrose 100 mls @ 200 mls/hr 10/20/19 18:00 10/22/19 10:56 IVPB 200 mls/hr Q8H-IV [facility] Administration Insulin Aspart 1 vial 10/21/19 01:05 10/22/19 12:32 Novolog Vial Sliding Scale - SQ 7 units Q6HPO [facility] Administration Protocol Insulin Detemir 26 units 10/22/19 12:36 Levemir Vial SQ 0700,2200 [facility] Lactobacillus Acidophilus 1 tab 10/20/19 17:00 10/22/19 10:16 Bacid - GT 1 tab DAILY [facility] Administration Levetiracetam 1,000 mg 10/18/19 12:30 10/22/19 10:16 Keppra Oral Solution - GT 1,000 mg BID [facility] Administration Multivitamins/Minerals 15 ml 10/18/19 12:30 10/22/19 10:30 Certavite-Antioxidant Liquid GT 15 ml DAILY [facility] Administration Nystatin 1 applic 10/18/19 12:30 10/22/19 12:33 Nystop Powder - TP 1 applic BID [facility] Administration Pantoprazole Sodium 40 mg 10/19/19 10:00 10/22/19 10:18 Protonix Iv IVPUSH 40 mg DAILY [facility] Administration Prednisone 5 mg 10/18/19 10:00 10/22/19 10:16 Deltasone - PEG 5 mg DAILY [facility] Administration Valproate Sodium 750 mg 10/18/19 14:00 10/22/19 13:28 Depakene - GT 750 mg TID [facility] Administration Impression 1. VESTA 2. DM 3. hypernatremia 4. resp failure 5. cva 6. copd 7. htn Plan - renal function continues to improve - repeat labs in am - decrease rate of fluids - vent support - cont feeds
--- NOTE | 2019-10-22 14:13 | PN ---
Progress Note, Physician History of Present Illness: continues to be lethargic still spiking fevers blood transfusions - Current Medication List Current Medications: Active Medications Acetaminophen (Tylenol Oral Solution -) 650 mg GT Q6H PRN PRN Reason: PAIN Last Admin: 10/22/19 11:23 Dose: 650 mg Documented by: Albuterol/Ipratropium (Duoneb -) 1 amp NEB RQID [facility] Last Admin: 10/22/19 11:27 Dose: 1 amp Documented by: Allopurinol (Zyloprim -) 100 mg PEG DAILY [facility] Last Admin: 10/22/19 10:17 Dose: 100 mg Documented by: Amlodipine Besylate (Norvasc -) 5 mg PEG DAILY [facility] Last Admin: 10/22/19 10:17 Dose: 5 mg Documented by: Ascorbic Acid (Vitamin C Oral Solution -) 500 mg GT DAILY [facility] Last Admin: 10/22/19 10:18 Dose: 500 mg Documented by: Atorvastatin Calcium (Lipitor -) 80 mg PEG HS [facility] Last Admin: 10/21/19 22:18 Dose: 80 mg Documented by: Banana Based Medical Food (Banatrol Plus Powder Packet) 1 packet PO TID [facility] Cholecalciferol (Vitamin D3 -) 1,000 unit GT DAILY [facility] Last Admin: 10/22/19 10:16 Dose: 1,000 unit Documented by: Collagenase (Santyl -) 1 applic TP DAILY [facility]; Protocol Last Admin: 10/22/19 12:32 Dose: 1 applic Documented by: Cyanocobalamin (Vitamin B12 -) 1,000 mcg PEG DAILY [facility] Last Admin: 10/22/19 10:16 Dose: 1,000 mcg Documented by: Ferrous Sulfate (Feosol) 300 mg GT BID [facility] Heparin Sodium (Porcine) (Heparin -) 5,000 unit SQ BID [facility] Last Admin: 10/22/19 10:17 Dose: 5,000 unit Documented by: Vancomycin HCl (Vancomycin (Pre-Docked)) 1 gm in 250 mls @ 166.667 mls/hr IVPB 0100,1300 [facility]; Protocol Last Admin: 10/22/19 00:15 Dose: 166.667 mls/hr Documented by: Meropenem 1 gm/ Dextrose 100 mls @ 200 mls/hr IVPB Q8H-IV [facility] Last Admin: 10/22/19 10:56 Dose: 200 mls/hr Documented by: Sodium Chloride (1/2 Normal Saline) 1,000 mls @ 35 mls/hr IV ASDIR [facility] Insulin Aspart (Novolog Vial Sliding Scale -) 1 vial SQ Q6HPO [facility]; Protocol Last Admin: 10/22/19 12:32 Dose: 7 units Documented by: Insulin Detemir (Levemir Vial) 26 units SQ 0700,2200 [facility] Lactobacillus Acidophilus (Bacid -) 1 tab GT DAILY [facility] Last Admin: 10/22/19 10:16 Dose: 1 tab Documented by: Levetiracetam (Keppra Oral Solution -) 1,000 mg GT BID [facility] Last Admin: 10/22/19 10:16 Dose: 1,000 mg Documented by: Multivitamins/Minerals (Certavite-Antioxidant Liquid) 15 ml GT DAILY [facility] Last Admin: 10/22/19 10:30 Dose: 15 ml Documented by: Nystatin (Nystop Powder -) 1 applic TP BID [facility] Last Admin: 10/22/19 12:33 Dose: 1 applic Documented by: Pantoprazole Sodium (Protonix Iv) 40 mg IVPUSH DAILY [facility] Last Admin: 10/22/19 10:18 Dose: 40 mg Documented by: Prednisone (Deltasone -) 5 mg PEG DAILY [facility] Last Admin: 10/22/19 10:16 Dose: 5 mg Documented by: Valproate Sodium (Depakene -) 750 mg GT TID [facility] Last Admin: 10/22/19 13:28 Dose: 750 mg Documented by: - Objective Vital Signs: Vital Signs Temperature 101.4 F H 10/22/19 10:00 Pulse Rate 84 10/22/19 11:25 Respiratory Rate 23 H 10/22/19 11:25 Blood Pressure 128/60 10/22/19 10:00 O2 Sat by Pulse Oximetry (%) 99 10/22/19 11:27 Constitutional: Yes: Other Cardiovascular: Yes: S1, S2 Respiratory: Yes: Mechanically Ventilated Gastrointestinal: Yes: Normal Bowel Sounds, Soft Musculoskeletal: Yes: Other Extremities: Yes: Other Wound/Incision: Yes: Dressing Dry and Intact, Other (pressure ulcer) Neurological: Yes: Other (non responsive) Labs: CBC, BMP 10/22/19 08:40 10/22/19 08:40 INR, PTT INR 1.05 (0.83-1.09) 10/17/19 18:47 Assessment/Plan Problem List - Problems (1) Gram-negative bacteremia Code(s): R78.81 - BACTEREMIA (2) History of CVA (cerebrovascular accident) Code(s): Z86.73 - PRSNL HX OF TIA (TIA), AND CEREB INFRC W/O RESID DEFICITS (3) CAD (coronary artery disease) Code(s): I25.10 - ATHSCL HEART DISEASE OF [place] CORONARY ARTERY W/O ANG PCTRS (4) Diarrhea Code(s): R19.7 - DIARRHEA, UNSPECIFIED (5) VESTA (acute kidney injury) Code(s): N17.9 - ACUTE KIDNEY FAILURE, UNSPECIFIED (6) Pneumonia Code(s): J18.9 - PNEUMONIA, UNSPECIFIED ORGANISM Qualifiers: Pneumonia type: due to unspecified organism Laterality: unspecified laterality Lung location: unspecified part of lung Qualified Code(s): J18.9 - Pneumonia, unspecified organism (7) Obese Code(s): E66.9 - OBESITY, UNSPECIFIED Qualifiers: Body mass index: BMI 60.0-69.9 (8) UTI (urinary tract infection) Code(s): N39.0 - URINARY TRACT INFECTION, SITE NOT SPECIFIED Qualifiers: Urinary tract infection type: site unspecified Hematuria presence: with hematuria Qualified Code(s): N39.0 - Urinary tract infection, site not specified; R31.9 - Hematuria, unspecified (9) Diabetes Code(s): E11.9 - TYPE 2 DIABETES MELLITUS WITHOUT COMPLICATIONS (10) HTN (hypertension) Code(s): I10 - ESSENTIAL (PRIMARY) HYPERTENSION (11) Hyperlipidemia Code(s): E78.5 - HYPERLIPIDEMIA, UNSPECIFIED (12) S/P CABG (coronary artery bypass graft) Code(s): Z95.1 - PRESENCE OF AORTOCORONARY BYPASS GRAFT (13) COPD (chronic obstructive pulmonary disease) Code(s): J44.9 - CHRONIC OBSTRUCTIVE PULMONARY DISEASE, UNSPECIFIED (14) Decubitus ulcer, stage 4 with infection Code(s): L89.94 - PRESSURE ULCER OF UNSPECIFIED SITE, STAGE 4; L08.9 - LOCAL INFECTION OF THE SKIN AND SUBCUTANEOUS TISSUE, UNSP (15) Lactic acid increased Code(s): E87.2 - ACIDOSIS (16) Metabolic encephalopathy Code(s): G93.41 - METABOLIC ENCEPHALOPATHY (17) Seizures Code(s): R56.9 - UNSPECIFIED CONVULSIONS (18) ESBL (extended spectrum beta-lactamase) producing bacteria infection Code(s): A49.9 - BACTERIAL INFECTION, UNSPECIFIED; Z16.12 - EXTENDED SPECTRUM BETA LACTAMASE (ESBL) RESISTANCE Assessment/Plan Sepsis Gram negative UTI with bacteremia ESBL + bacterial infection HCAP vs VAP Diarrhea Polymicrobial Sacral St IV DU infection/ likely OM Seizures Chronic respiratory failure s/p trach/MV Acute kidney injury Uncontrolled DM Morbid obesity Hx of CVA s/p thrombectomy CAD s/p CABG x 2 COPD Diastolic CHF HTN HLD plan would continue current mgmt will see if patient spikes tomorrow wound care rest as per the team
[2019-10-22] MEDS: BANATROL PLUS POWDER PACKET PO SCH ×2 (16:16→22:17)
[2019-10-22] MEDS: ATORVASTATIN CA 80 MG TABLET (FP) PEG SCH (21:49)
--- NOTE | 2019-10-22 21:49 | CON.GI ---
Consult Consult Specialty:: Gastroenterology Referred by:: Rosita Ca NP Reason for Consultation:: Diarrhea, Anemia - History of Present Illness Chief Complaint: Unable to give complaints History of Present Illness: 69F unresponsive on trach/ventilator and G tube is transferred from [facility] for hyperglycemia and azotemia and dehydration. She is found to have diarrhea. 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: CVA (right intracerebral hemorrhage), Seizure Cardio/Vascular: Yes: Aortic Insufficiency, CAD (s/p CABG), Deep Vein Thrombosis (s/p thrombectomy), HTN, Hyperlipdemia, Pulmonary Hypertension Pulmonary: Yes: COPD Gastrointestinal: Yes: GERD Hepatobiliary: Yes: Cholelithiasis, Other (fatty liver) Renal/: Yes: Renal Inusuff Heme/Onc: Yes: Anemia Infectious Disease: Yes: Other (oral abscess) Psych: Yes: Anxiety, Depression Musculoskeletal: Yes: Osteoarthritis Rheumatology: Yes: Gout Endocrine: Yes: Diabetes Mellitus, Hyperparathyroidism - Past Surgical History Past Surgical History: Yes: CABG Additional Surgical History: thrombectomy. suspected right craniotomy. trach eostomy and G tube. hysteroscopic myomectomies 01/18 - Alcohol/Substance Use Hx Alcohol Use: No (unknown) History of Substance Use: reports: None - Smoking History Smoking history: Unknown if ever smoked Aproximately how many cigarettes per day: 0 - Social History Usual Living Arrangement: Skilled Nursing ADL: Support Services History of Recent Travel: No Home Medications - Allergies Allergies/Adverse Reactions: Allergies Allergy/AdvReac Type Severity Reaction Status Date / Time aspirin Allergy Verified 10/17/19 17:51 Penicillins Allergy Hives Verified 10/17/19 17:51 codeine [Codeine] AdvReac HALLUCINATIONS, Verified 10/17/19 17:51 DROWSY morphine AdvReac HALLUCINATI Verified 10/17/19 17:51 ONS - Home Medications Home Medications: Ambulatory Orders Albuterol Sulfate [Proair Hfa -] 1 inh PO ASDIR PRN 90 Days hfa.aer.ad 05/17/15 Budesonide/Formeterol Fumarate [SYMBICORT 80/4.5mcg -] 2 inh IH BID 90 Days inhaler 05/17/15 Cholecalciferol (Vitamin D3) [Vitamin D3] 1,000 unit PO DAILY 01/18/17 Duloxetine HCl [Cymbalta] 30 mg PO AM 01/18/17 Gabapentin 400 mg PO TID PRN 01/18/17 Nitroglycerin [Nitrostat] 0.4 mg SL PRN 01/18/17 Pravastatin Sodium [Pravachol] 40 mg PO HS 01/18/17 Albuterol 2.5/Ipratropium 0.5 [Duoneb -] 1 neb IH QID 7 Days #30 vial.neb. 03/03/19 Albuterol 0.083% Nebulizer Sil [Ventolin 0.083% Nebulizer Soln -] 1 neb NEB Q4H PRN #30 vial 03/04/19 Cyanocobalamin [Vitamin B12 -] 1,000 mcg PO DAILY 08/23/19 Fluticasone Prop 0.05% Nasal [Flonase -] 1 - 2 spray NS BID 08/23/19 Isosorbide Mononitrate [Isosorbide Mononitrate ER] 60 mg PO DAILY 08/23/19 Lisinopril [Prinivil] 20 mg PO DAILY 08/23/19 Metoprolol Succinate [Toprol XL -] 25 mg PO AM 08/23/19 Pramipexole Di-HCl [Pramipexole ER] 0.5 mg PO TID 08/23/19 Torsemide 20 mg PO AM 08/23/19 Allopurinol [Zyloprim -] 100 mg PO DAILY #30 tablet 08/31/19 Amlodipine Besylate [Norvasc -] 5 mg PO DAILY #30 tablet 08/31/19 metFORMIN HCL [Glucophage -] 500 mg PO BID@0700,1630 tablet 08/31/19 predniSONE [Deltasone -] 5 mg PO DAILY #20 tablet 08/31/19 Family Medical History Family History: Unable to Obtain Review of Systems Unable to obtain ROS, reason: unresponsive Physical Exam-GI Vital Signs: Vital Signs Temperature 99.7 F H 10/22/19 19:50 Pulse Rate 96 H 10/22/19 19:50 Respiratory Rate 17 10/22/19 20:00 Blood Pressure 168/74 10/22/19 19:50 O2 Sat by Pulse Oximetry (%) 97 10/22/19 20:00 CBC,CMP WBC 12.6 K/mm3 (4.0-10.0) H 10/22/19 08:40 RBC 3.86 M/mm3 (3.60-5.2) 10/22/19 08:40 Hgb 8.8 GM/dL (10.7-15.3) L 10/22/19 08:40 Hct 28.5 % (32.4-45.2) L D 10/22/19 08:40 MCV 73.9 fl (80-96) L 10/22/19 08:40 MCH 22.9 pg (25.7-33.7) L 10/22/19 08:40 MCHC 31.0 g/dl (32.0-36.0) L 10/22/19 08:40 RDW 19.5 % (11.6-15.6) H 10/22/19 08:40 Plt Count 307 K/MM3 (134-434) 10/22/19 08:40 MPV 8.7 fl (7.5-11.1) 10/22/19 08:40 Absolute Neuts (auto) 8.5 K/mm3 (1.5-8.0) H 10/22/19 08:40 Neutrophils % 68.0 % (42.8-82.8) 10/22/19 08:40 Neutrophils % (Manual) 71.0 % (42.8-82.8) 10/22/19 08:40 Band Neutrophils % 1.0 % 10/22/19 08:40 Lymphocytes % 21.9 % (8-40) 10/22/19 08:40 Lymphocytes % (Manual) 20.0 % (8-40) D 10/22/19 08:40 Monocytes % 8.3 % (3.8-10.2) 10/22/19 08:40 Monocytes % (Manual) 2 % (3.8-10.2) L 10/22/19 08:40 Eosinophils % 1.5 % (0-4.5) 10/22/19 08:40 Eosinophils % (Manual) 3.0 % (0-4.5) D 10/22/19 08:40 Basophils % 0.3 % (0-2.0) 10/22/19 08:40 Basophils % (Manual) 0.0 % (0-2.0) 10/22/19 08:40 Myelocytes % (Man) 1 % (0-2) D 10/22/19 08:40 Promyelocytes % (Man) 0 % (0-2) 10/22/19 08:40 Blast Cells % (Manual) 0 % (0-0) 10/22/19 08:40 Nucleated RBC % 2 % (0-0) H 10/22/19 08:40 Metamyelocytes 2 % (0-2) D 10/22/19 08:40 Hypochromia 0 10/22/19 08:40 Platelet Estimate Normal 10/22/19 08:40 Polychromasia 1+ 10/22/19 08:40 Poikilocytosis 1+ 10/22/19 08:40 Basophilic Stippling 1+ 10/22/19 08:40 Anisocytosis 1+ 10/22/19 08:40 Microcytosis 1+ 10/22/19 08:40 Macrocytosis 1+ 10/22/19 08:40 Tear Drop Cells 1+ 10/21/19 08:40 Ovalocytes 1+ 10/17/19 18:47 Stomatocytes 1+ 10/21/19 08:40 Sodium 141 mmol/L (136-145) 10/22/19 08:40 Potassium 4.3 mmol/L (3.5-5.1) 10/22/19 08:40 Chloride 106 mmol/L (98-107) 10/22/19 08:40 Carbon Dioxide 28 mmol/L (21-32) 10/22/19 08:40 Anion Gap 6 MMOL/L (8-16) L 10/22/19 08:40 BUN 17.1 mg/dL (7-18) 10/22/19 08:40 Creatinine 0.5 mg/dL (0.55-1.3) L 10/22/19 08:40 Est GFR (CKD-EPI)AfAm 112.86 10/22/19 08:40 Est GFR (CKD-EPI)NonAf 97.37 10/22/19 08:40 POC Glucometer 316 UNITS (80-120) 10/22/19 17:23 Random Glucose 286 mg/dL (74-106) H 10/22/19 08:40 Hemoglobin A1c % 10.9 % (4.2-6.3) H 10/18/19 06:00 Lactic Acid 2.2 mmol/L (0.4-2.0) H* 10/22/19 08:40 Calcium 8.5 mg/dL (8.5-10.1) 10/22/19 08:40 Iron 13 ug/dL (50-175) L 10/18/19 06:00 TIBC 145 ug/dL (250-450) L 10/18/19 06:00 Iron Saturation 8 % (17.5-39) L 10/18/19 06:00 Unsaturated IBC 132 ug/dL (200-275) L 10/18/19 06:00 Ferritin 636.2 ng/ml (8-388) H 10/18/19 06:00 Total Bilirubin 0.2 mg/dL (0.2-1) 10/22/19 08:40 AST 62 U/L (15-37) H 10/22/19 08:40 ALT 52 U/L (13-61) 10/22/19 08:40 Alkaline Phosphatase 102 U/L (45-117) 10/22/19 08:40 Troponin I < 0.02 ng/ml (0.00-0.05) 10/17/19 18:47 Total Protein 5.8 g/dl (6.4-8.2) L 10/22/19 08:40 Albumin 1.3 g/dl (3.4-5.0) L 10/22/19 08:40 Vitamin B12 > 2000 pg/ml (193-986) H 10/18/19 06:00 Beta-Hydroxybutyrate 1.9 mg/dL (0.2-2.8) 10/17/19 18:47 TSH 1.16 uIU/ml (0.358-3.74) 10/18/19 06:00 Free T4 0.98 ng/dl (0.76-1.46) 10/18/19 06:00 Current Medications Generic Name Dose Route Start Last Admin Trade Name Freq PRN Reason Stop Dose Admin Acetaminophen 650 mg 10/18/19 12:21 10/22/19 11:23 Tylenol Oral Solution - GT 650 mg Q6H PRN Administration PAIN Albuterol/Ipratropium 1 amp 10/18/19 08:00 10/22/19 20:38 Duoneb - NEB 1 amp RQID MARIE Administration Allopurinol 100 mg 10/18/19 10:00 10/22/19 10:17 Zyloprim - PEG 100 mg DAILY MARIE Administration Amlodipine Besylate 5 mg 10/18/19 10:00 10/22/19 10:17 Norvasc - PEG 5 mg DAILY MARIE Administration Ascorbic Acid 500 mg 10/18/19 13:00 10/22/19 10:18 Vitamin C Oral Solution - GT 500 mg DAILY MARIE Administration Atorvastatin Calcium 80 mg 10/18/19 22:00 10/22/19 21:49 Lipitor - PEG 80 mg HS MARIE Administration Banana Based Medical Food 1 packet 10/22/19 14:00 10/22/19 16:16 Banatrol Plus Powder Packet PO 1 packet TID MARIE Administration Cholecalciferol 1,000 unit 10/20/19 07:36 10/22/19 10:16 Vitamin D3 - GT 1,000 unit DAILY MARIE Administration Collagenase 1 applic 10/18/19 13:00 10/22/19 12:32 Santyl - TP 1 applic DAILY MARIE Administration Protocol Cyanocobalamin 1,000 mcg 10/20/19 07:36 10/22/19 10:16 Vitamin B12 - PEG 1,000 mcg DAILY MARIE Administration Ferrous Sulfate 300 mg 10/22/19 22:00 10/22/19 21:48 Feosol GT 300 mg BID MARIE Administration Heparin Sodium (Porcine) 5,000 unit 10/18/19 22:15 10/22/19 21:48 Heparin - SQ 5,000 unit BID MARIE Administration Vancomycin HCl 1 gm in 250 mls @ 166.667 mls/hr 10/20/19 13:00 10/22/19 16:10 Vancomycin (Pre-Docked) IVPB 166.667 mls/hr 0100,1300 MARIE Administration Protocol Meropenem 1 gm/ Dextrose 100 mls @ 200 mls/hr 10/20/19 18:00 10/22/19 19:35 IVPB 200 mls/hr Q8H-IV MARIE Administration Sodium Chloride 1,000 mls @ 35 mls/hr 10/22/19 13:37 10/22/19 20:29 1/2 Normal Saline IV 35 mls/hr ASDIR MARIE Administration Insulin Aspart 1 vial 10/21/19 01:05 10/22/19 17:28 Novolog Vial Sliding Scale - SQ 7 units Q6HPO MARIE Administration Protocol Insulin Detemir 26 units 10/22/19 12:36 10/22/19 21:47 Levemir Vial SQ 26 units 0700,2200 MARIE Administration Lactobacillus Acidophilus 1 tab 10/20/19 17:00 10/22/19 10:16 Bacid - GT 1 tab DAILY MARIE Administration Levetiracetam 1,000 mg 10/18/19 12:30 10/22/19 21:48 Keppra Oral Solution - GT 1,000 mg BID MARIE Administration Multivitamins/Minerals 15 ml 10/18/19 12:30 10/22/19 10:30 Certavite-Antioxidant Liquid GT 15 ml DAILY MARIE Administration Nystatin 1 applic 10/18/19 12:30 10/22/19 21:49 Nystop Powder - TP 1 applic BID MARIE Administration Pantoprazole Sodium 40 mg 10/19/19 10:00 10/22/19 10:18 Protonix Iv IVPUSH 40 mg DAILY MARIE Administration Prednisone 5 mg 10/18/19 10:00 10/22/19 10:16 Deltasone - PEG 5 mg DAILY MARIE Administration Valproate Sodium 750 mg 10/18/19 14:00 10/22/19 21:48 Depakene - GT 750 mg TID MARIE Administration Constitutional: Yes: Other (unresponsive) Eyes: Yes: Conjunctiva Clear HENT: Yes: Other (collapsed right frontal calvarium) Neck: Yes: Other (tracehostomy) Cardiovascular: Yes: Other (long vertical median sternotomy incision exteding into upper epigastrium) Respiratory: Yes: Rhonchi Gastrointestinal Inspection: Yes: Distention, Scars (median sternotomy exnetnds into epigastrium LUQ G tube) ...Auscultate: Yes: Hypoactive Bowel Sounds ...Palpate: Yes: Soft, Other (nontender) ...Percussion: Yes: Tympanitic ...Rectal Exam: Yes: Guaiac Negative (loose dark stool is g neg) Edema: No Labs: CBC, BMP 10/22/19 08:40 10/22/19 08:40 INR, PTT INR 1.05 (0.83-1.09) 10/17/19 18:47 Microbiology 10/18/19 18:10 Stool Clostridioides difficile Antigen - Final 10/18/19 18:10 Stool Clostridioides difficile Toxin Assay - Final Laboratory Tests 05/08/10 11/24/12 01/21/14 10:50 01:13 10:21 Alkaline Phosphatase 93 H 132 D 103 AST ALT COVID-19 (KADEN) 01/08/19 10/17/19 10/17/19 15:29 18:47 19:57 Alkaline Phosphatase 106 92 AST 66 H ALT COVID-19 (KADEN) Not detected 10/20/19 10/22/19 07:40 08:40 Alkaline Phosphatase 76 102 AST 37 62 H ALT 52 COVID-19 (KADEN) Problem List - Problems (1) Diarrhea Code(s): R19.7 - DIARRHEA, UNSPECIFIED (2) Abnormal liver function tests Code(s): R94.5 - ABNORMAL RESULTS OF LIVER FUNCTION STUDIES (3) Gallstones Code(s): K80.20 - CALCULUS OF GALLBLADDER W/O CHOLECYSTITIS W/O OBSTRUCTION (4) Fatty liver Code(s): K76.0 - FATTY (CHANGE OF) LIVER, NOT ELSEWHERE CLASSIFIED (5) CAD (coronary artery disease) Code(s): I25.10 - ATHSCL HEART DISEASE OF [place] CORONARY ARTERY W/O ANG PCTRS (6) COPD (chronic obstructive pulmonary disease) Code(s): J44.9 - CHRONIC OBSTRUCTIVE PULMONARY DISEASE, UNSPECIFIED (7) History of CVA (cerebrovascular accident) Code(s): Z86.73 - PRSNL HX OF TIA (TIA), AND CEREB INFRC W/O RESID DEFICITS (8) Metabolic encephalopathy Code(s): G93.41 - METABOLIC ENCEPHALOPATHY (9) Seizures Code(s): R56.9 - UNSPECIFIED CONVULSIONS Assessment/Plan Impression; - Already found to be C diff toxin negative so will screen for alternative causes and check for WBCs - Her elevated LFTs could reflect [place], GB tone or sludge passage but will pursue liver testing for chronic liver diseases etiologies and [place] Fibrosure screen for other etiologies - Her stool is guaiac negative but cannot exclude an intermittently GI bleeding lesion as contributing to her anemia. She is not a candidate for elective endoscopies Plan: -- Stool for WBCs, enteric pathogens, O&P. -- Screening for chronic liver disease etiologies -- Liver and bile duct sonogram -- Not a candidate for elective endoscopies
[2019-10-23] MEDS: INSULIN SLIDING SCALE (NOVOLOG) 1 VIAL SQ SCH ×4 (00:05→17:32)
[2019-10-23] MEDS ORDERED: DEXTROSE 5%-WATER 100 ML IVPB ONE ×3 (01:29→18:23)
[2019-10-23] MEDS ORDERED: MEROPENEM 1 GM VIAL (RESTRICTED TO ID) IVPB ONE ×3 (01:29→18:23)
[2019-10-23] MEDS: MEROPENEM 1 GM in DEXTROSE 5%-WATER 100 ML IVPB SCH ×3 (02:44→18:24)
[2019-10-23] MEDS: VANCOMYCIN 1 GRAM (PRE-DOCKED) 1 GM/250 ML BAG IVPB SCH ×2 (04:12→15:18)
[2019-10-23] MEDS: VALPROATE SODIUM 250 MG/5 ML UNIT DOSE CUP GT SCH ×3 (05:14→22:31)
[2019-10-23] MEDS ORDERED: PT OWN MED DRAWER 7, Y5N ONE ×3 (05:16→09:42)
[2019-10-23] MEDS: BANATROL PLUS POWDER PACKET PO SCH ×3 (05:17→22:30)
[2019-10-23] MEDS: INSULIN (LEVEMIR) 100 UNITS/ML UNITS SQ SCH ×2 (06:07→22:30)
[2019-10-23] MEDS: ALBUTEROL SO4 2.5/IPRATROPIUM 0.5 INH SOL 3 ML VIAL.NEB. NEB SCH ×4 (08:10→20:45)
[2019-10-23 08:18] LABS: BASO % 0.2 % (0-2.0); EOS % 0.6 % (0-4.5); HEMATOCRIT 31.1 % (32.4-45.2); HEMOGLOBIN 9.6 GM/dL (10.7-15.3); LYMPH % 21.4 % (8-40); MCH 22.5 pg (25.7-33.7); MCHC 30.8 g/dl (32.0-36.0); MEAN CELL VOLUME 72.9 fl (80-96); MEAN PLT VOLUME 8.5 fl (7.5-11.1); MONO % 9.2 % (3.8-10.2); NEUT % 68.6 % (42.8-82.8); PLATELET COUNT 375 K/MM3 (134-434); RBC 4.27 M/mm3 (3.60-5.2); RDW 20.1 % (11.6-15.6); WHITE BLOOD COUNT 14.6 K/mm3 (4.0-10.0)
[2019-10-23 08:57] LABS: ALBUMIN 1.5 g/dl (3.4-5.0); BILIRUBIN,TOTAL 0.3 mg/dL (0.2-1); BLOOD UREA NITROGEN 16.8 mg/dL (7-18); CALCIUM 8.9 mg/dL (8.5-10.1); CREATININE 0.5 mg/dL (0.55-1.3); POTASSIUM 4.9 mmol/L (3.5-5.1); TOT PROT 6.3 g/dl (6.4-8.2)
[2019-10-23] MEDS: PANTOPRAZOLE SODIUM 40 MG VIAL IVPUSH SCH (09:32)
[2019-10-23] MEDS: ALLOPURINOL 100 MG TABLET (FP) PEG SCH (09:36)
[2019-10-23] MEDS: amLODIPine BESYLATE 5 MG TABLET (FP) PEG SCH (09:36)
[2019-10-23] MEDS: CHOLECALCIFEROL (VIT D3) 1,000 UNIT (25 MCG) TABLET GT SCH (09:36)
[2019-10-23] MEDS: CYANOCOBALAMIN 1,000 MCG TABLET (FP) PEG SCH (09:37)
[2019-10-23] MEDS: FERROUS SO4 300 MG/5 ML ORAL SOLN UNIT DOSE CUPS GT SCH ×2 (09:37→22:31)
[2019-10-23] MEDS: LACTOBACILLUS ACIDOPHILUS 1 TABLET GT SCH (09:37)
[2019-10-23] MEDS: levETIRAcetam 500 MG/5 ML ORAL SOLUTION (UNIT-DOSE CUPS) GT SCH ×2 (09:37→22:31)
[2019-10-23] MEDS: HEPARIN NA (PORCINE) 5,000 UNITS/ML 1ML VIAL SQ SCH ×2 (09:37→22:31)
[2019-10-23] MEDS: predniSONE 5 MG TABLET (UD) PEG SCH (09:44)
[2019-10-23] MEDS: MULTIVIT-MINERALS ORAL LIQUID GT SCH (09:44)
[2019-10-23] MEDS: ASCORBIC ACID 500 MG/5 ML UNIT DOSE CUP GT SCH (09:44)
--- NOTE | 2019-10-23 09:54 | PN ---
Progress Note, Physician History of Present Illness: pulmonary unresponsive on vent support ac mode,t 100 - Current Medication List Current Medications: Active Medications Acetaminophen (Tylenol Oral Solution -) 650 mg GT Q6H PRN PRN Reason: PAIN Last Admin: 10/22/19 11:23 Dose: 650 mg Documented by: Albuterol/Ipratropium (Duoneb -) 1 amp NEB RQID [facility] Last Admin: 10/23/19 08:10 Dose: 1 amp Documented by: Allopurinol (Zyloprim -) 100 mg PEG DAILY [facility] Last Admin: 10/22/19 10:17 Dose: 100 mg Documented by: Amlodipine Besylate (Norvasc -) 5 mg PEG DAILY [facility] Last Admin: 10/22/19 10:17 Dose: 5 mg Documented by: Ascorbic Acid (Vitamin C Oral Solution -) 500 mg GT DAILY [facility] Last Admin: 10/22/19 10:18 Dose: 500 mg Documented by: Atorvastatin Calcium (Lipitor -) 80 mg PEG HS [facility] Last Admin: 10/22/19 21:49 Dose: 80 mg Documented by: Banana Based Medical Food (Banatrol Plus Powder Packet) 1 packet PO TID [facility] Last Admin: 10/23/19 05:17 Dose: 1 packet Documented by: Cholecalciferol (Vitamin D3 -) 1,000 unit GT DAILY [facility] Last Admin: 10/22/19 10:16 Dose: 1,000 unit Documented by: Collagenase (Santyl -) 1 applic TP DAILY [facility]; Protocol Last Admin: 10/22/19 12:32 Dose: 1 applic Documented by: Cyanocobalamin (Vitamin B12 -) 1,000 mcg PEG DAILY MARIE Last Admin: 10/22/19 10:16 Dose: 1,000 mcg Documented by: Ferrous Sulfate (Feosol) 300 mg GT BID [facility] Last Admin: 10/22/19 21:48 Dose: 300 mg Documented by: Heparin Sodium (Porcine) (Heparin -) 5,000 unit SQ BID MARIE Last Admin: 10/22/19 21:48 Dose: 5,000 unit Documented by: Meropenem 1 gm/ Dextrose 100 mls @ 200 mls/hr IVPB Q8H-IV MARIE Last Admin: 10/23/19 02:44 Dose: 200 mls/hr Documented by: Sodium Chloride (1/2 Normal Saline) 1,000 mls @ 35 mls/hr IV ASDIR [facility] Last Admin: 10/22/19 20:29 Dose: 35 mls/hr Documented by: Vancomycin HCl (Vancomycin (Pre-Docked)) 1 gm in 250 mls @ 166.667 mls/hr IVPB Q12H [facility]; Protocol Stop: 10/27/19 05:29 Last Admin: 10/23/19 04:12 Dose: 166.667 mls/hr Documented by: Insulin Aspart (Novolog Vial Sliding Scale -) 1 vial SQ Q6HPO MARIE; Protocol Last Admin: 10/23/19 06:06 Dose: 8 units Documented by: Insulin Detemir (Levemir Vial) 26 units SQ 0700,2200 [facility] Last Admin: 10/23/19 06:07 Dose: 26 units Documented by: Lactobacillus Acidophilus (Bacid -) 1 tab GT DAILY [facility] Last Admin: 10/22/19 10:16 Dose: 1 tab Documented by: Levetiracetam (Keppra Oral Solution -) 1,000 mg GT BID [facility] Last Admin: 10/22/19 21:48 Dose: 1,000 mg Documented by: Multivitamins/Minerals (Certavite-Antioxidant Liquid) 15 ml GT DAILY [facility] Last Admin: 10/22/19 10:30 Dose: 15 ml Documented by: Nystatin (Nystop Powder -) 1 applic TP BID [facility] Last Admin: 10/22/19 21:49 Dose: 1 applic Documented by: Pantoprazole Sodium (Protonix Iv) 40 mg IVPUSH DAILY [facility] Last Admin: 10/22/19 10:18 Dose: 40 mg Documented by: Prednisone (Deltasone -) 5 mg PEG DAILY [facility] Last Admin: 10/22/19 10:16 Dose: 5 mg Documented by: Valproate Sodium (Depakene -) 750 mg GT TID [facility] Last Admin: 10/23/19 05:14 Dose: 750 mg Documented by: - Objective Vital Signs: Vital Signs Temperature 99.2 F 10/23/19 05:32 Pulse Rate 75 10/23/19 08:59 Respiratory Rate 22 H 10/23/19 08:00 Blood Pressure 159/74 10/23/19 05:32 O2 Sat by Pulse Oximetry (%) 98 10/23/19 08:59 Constitutional: Yes: Well Nourished, Other ( unresponsive) Eyes: Yes: WNL HENT: Yes: WNL Neck: Yes: Supple (trach) Cardiovascular: Yes: Regular Rate and Rhythm, S1, S2 Respiratory: Yes: Rhonchi (scattered [place] rhonchi) Gastrointestinal: Yes: Normal Bowel Sounds, Soft Extremities: Yes: WNL Edema: No Labs: CBC, BMP 10/23/19 07:40 10/23/19 06:00 INR, PTT INR 1.05 (0.83-1.09) 10/17/19 18:47 Problem List - Problems (1) Lactic acid increased Code(s): E87.2 - ACIDOSIS (2) VESTA (acute kidney injury) Code(s): N17.9 - ACUTE KIDNEY FAILURE, UNSPECIFIED (3) Bacteremia Code(s): R78.81 - BACTEREMIA (4) CAD (coronary artery disease) Code(s): I25.10 - ATHSCL HEART DISEASE OF [place] CORONARY ARTERY W/O ANG PCTRS (5) COPD (chronic obstructive pulmonary disease) Code(s): J44.9 - CHRONIC OBSTRUCTIVE PULMONARY DISEASE, UNSPECIFIED (6) Gram-negative bacteremia Code(s): R78.81 - BACTEREMIA (7) History of CVA (cerebrovascular accident) Code(s): Z86.73 - PRSNL HX OF TIA (TIA), AND CEREB INFRC W/O RESID DEFICITS (8) Pneumonia Code(s): J18.9 - PNEUMONIA, UNSPECIFIED ORGANISM Qualifiers: Pneumonia type: due to unspecified organism Laterality: unspecified lat erality Lung location: unspecified part of lung Qualified Code(s): J18.9 - Pneumonia, unspecified organism (9) Arteriosclerotic heart disease (ASHD) Code(s): I25.10 - ATHSCL HEART DISEASE OF [place] CORONARY ARTERY W/O ANG PCTRS (10) Diabetes Code(s): E11.9 - TYPE 2 DIABETES MELLITUS WITHOUT COMPLICATIONS (11) HTN (hypertension) Code(s): I10 - ESSENTIAL (PRIMARY) HYPERTENSION (12) S/P CABG (coronary artery bypass graft) Code(s): Z95.1 - PRESENCE OF AORTOCORONARY BYPASS GRAFT (13) Chronic respiratory failure Code(s): J96.10 - CHRONIC RESPIRATORY FAILURE, UNSP W HYPOXIA OR HYPERCAPNIA (14) Sepsis Code(s): A41.9 - SEPSIS, UNSPECIFIED ORGANISM (15) High glucose Code(s): R73.09 - OTHER ABNORMAL GLUCOSE Assessment/Plan IMP CHRONIC RESPIRATORY FAILURE S/P CVA WITH THROMBECTOMY UROSEPSIS GRAM NEG BACTEREMIA PROTEUS ? PNEUMONIA ELEVATED LACTATE LEVEL ASHD S/P CABG COPD HTN HLD DIASTOLIC HF SACRAL DECUBITUS VESTA ANEMIA PLAN VENT SUPPORT ON AC MODE IVF ABX PER ID MONITOR LYTES,RENAL FUNCTION,H+H F/U CHEST X-RAYS WOUND CARE TREND LACTATE DR DUKE Problem List - Problems (1) Lactic acid increased Code(s): E87.2 - ACIDOSIS (2) VESTA (acute kidney injury) Code(s): N17.9 - ACUTE KIDNEY FAILURE, UNSPECIFIED (3) Bacteremia Code(s): R78.81 - BACTEREMIA (4) CAD (coronary artery disease) Code(s): I25.10 - ATHSCL HEART DISEASE OF [place] CORONARY ARTERY W/O ANG PCTRS (5) COPD (chronic obstructive pulmonary disease) Code(s): J44.9 - CHRONIC OBSTRUCTIVE PULMONARY DISEASE, UNSPECIFIED (6) Gram-negative bacteremia Code(s): R78.81 - BACTEREMIA (7) History of CVA (cerebrovascular accident) Code(s): Z86.73 - PRSNL HX OF TIA (TIA), AND CEREB INFRC W/O RESID DEFICITS (8) Pneumonia Code(s): J18.9 - PNEUMONIA, UNSPECIFIED ORGANISM Qualifiers: Pneumonia type: due to unspecified organism Laterality: unspecified laterality Lung location: unspecified part of lung Qualified Code(s): J18.9 - Pneumonia, unspecified organism (9) Arteriosclerotic heart disease (ASHD) Code(s): I25.10 - ATHSCL HEART DISEASE OF [place] CORONARY ARTERY W/O ANG PCTRS (10) Diabetes Code(s): E11.9 - TYPE 2 DIABETES MELLITUS WITHOUT COMPLICATIONS (11) HTN (hypertension) Code(s): I10 - ESSENTIAL (PRIMARY) HYPERTENSION (12) S/P CABG (coronary artery bypass graft) Code(s): Z95.1 - PRESENCE OF AORTOCORONARY BYPASS GRAFT (13) Chronic respiratory failure Code(s): J96.10 - CHRONIC RESPIRATORY FAILURE, UNSP W HYPOXIA OR HYPERCAPNIA (14) Sepsis Code(s): A41.9 - SEPSIS, UNSPECIFIED ORGANISM (15) High glucose Code(s): R73.09 - OTHER ABNORMAL GLUCOSE
[2019-10-23] MEDS: NYSTATIN POWDER 100,000 UNITS/GM - 15 GM TOPICAL POWDER TP SCH ×2 (10:21→22:32)
[2019-10-23 11:25] LABS: ANISOCYTOSIS 1+; MACROCYTOSIS 1+; OVALOCYTE 1+; PLATELET ESTIMATE NORMAL
[2019-10-23] MEDS ORDERED: INSULIN (NOVOLOG) ASPART 100 UNITS/ML 10ML VIAL ONE (11:29)
--- NOTE | 2019-10-23 13:17 | PN ---
Progress Note, Physician History of Present Illness: Pt seen and examined at bedside. NO great change in status. - Current Medication List Current Medications: Active Medications Acetaminophen (Tylenol Oral Solution -) 650 mg GT Q6H PRN PRN Reason: PAIN Last Admin: 10/22/19 11:23 Dose: 650 mg Documented by: Albuterol/Ipratropium (Duoneb -) 1 amp NEB RQID [facility] Last Admin: 10/23/19 11:56 Dose: 1 amp Documented by: Allopurinol (Zyloprim -) 100 mg PEG DAILY [facility] Last Admin: 10/23/19 09:36 Dose: 100 mg Documented by: Amlodipine Besylate (Norvasc -) 5 mg PEG DAILY [facility] Last Admin: 10/23/19 09:36 Dose: 5 mg Documented by: Ascorbic Acid (Vitamin C Oral Solution -) 500 mg GT DAILY [facility] Last Admin: 10/23/19 09:44 Dose: 500 mg Documented by: Atorvastatin Calcium (Lipitor -) 80 mg PEG HS [facility] Last Admin: 10/22/19 21:49 Dose: 80 mg Documented by: Banana Based Medical Food (Banatrol Plus Powder Packet) 1 packet PO TID [facility] Last Admin: 10/23/19 05:17 Dose: 1 packet Documented by: Cholecalciferol (Vitamin D3 -) 1,000 unit GT DAILY [facility] Last Admin: 10/23/19 09:36 Dose: 1,000 unit Documented by: Collagenase (Santyl -) 1 applic TP DAILY [facility]; Protocol Last Admin: 10/22/19 12:32 Dose: 1 applic Documented by: Cyanocobalamin (Vitamin B12 -) 1,000 mcg PEG DAILY [facility] Last Admin: 10/23/19 09:37 Dose: 1,000 mcg Documented by: Ferrous Sulfate (Feosol) 300 mg GT BID [facility] Last Admin: 10/23/19 09:37 Dose: 300 mg Documented by: Heparin Sodium (Porcine) (Heparin -) 5,000 unit SQ BID [facility] Last Admin: 10/23/19 09:37 Dose: 5,000 unit Documented by: Meropenem 1 gm/ Dextrose 100 mls @ 200 mls/hr IVPB Q8H-IV [facility] Last Admin: 10/23/19 09:34 Dose: 200 mls/hr Documented by: Sodium Chloride (1/2 Normal Saline) 1,000 mls @ 35 mls/hr IV ASDIR [facility] Last Admin: 10/22/19 20:29 Dose: 35 mls/hr Documented by: Vancomycin HCl (Vancomycin (Pre-Docked)) 1 gm in 250 mls @ 166.667 mls/hr IVPB Q12H [facility]; Protocol Stop: 10/27/19 05:29 Last Admin: 10/23/19 04:12 Dose: 166.667 mls/hr Documented by: Insulin Aspart (Novolog Vial Sliding Scale -) 1 vial SQ Q6HPO [facility]; Protocol Last Admin: 10/23/19 12:00 Dose: 7 units Documented by: Insulin Detemir (Levemir Vial) 26 units SQ 0700,2200 [facility] Last Admin: 10/23/19 06:07 Dose: 26 units Documented by: Lactobacillus Acidophilus (Bacid -) 1 tab GT DAILY [facility] Last Admin: 10/23/19 09:37 Dose: 1 tab Documented by: Levetiracetam (Keppra Oral Solution -) 1,000 mg GT BID [facility] Last Admin: 10/23/19 09:37 Dose: 1,000 mg Documented by: Multivitamins/Minerals (Certavite-Antioxidant Liquid) 15 ml GT DAILY [facility] Last Admin: 10/23/19 09:44 Dose: 15 ml Documented by: Nystatin (Nystop Powder -) 1 applic TP BID [facility] Last Admin: 10/22/19 21:49 Dose: 1 applic Documented by: Pantoprazole Sodium (Protonix Iv) 40 mg IVPUSH DAILY [facility] Last Admin: 10/23/19 09:32 Dose: 40 mg Documented by: Prednisone (Deltasone -) 5 mg PEG DAILY [facility] Last Admin: 10/23/19 09:44 Dose: 5 mg Documented by: Valproate Sodium (Depakene -) 750 mg GT TID [facility] Last Admin: 10/23/19 05:14 Dose: 750 mg Documented by: - Objective Vital Signs: Vital Signs Temperature 98.2 F 10/23/19 11:00 Pulse Rate 96 H 10/23/19 11:00 Respiratory Rate 25 H 10/23/19 11:52 Blood Pressure 148/66 10/23/19 11:00 O2 Sat by Pulse Oximetry (%) 98 10/23/19 11:52 Constitutional: Yes: Calm Eyes: Yes: Conjunctiva Clear Cardiovascular: Yes: S1, S2 Respiratory: Yes: Mechanically Ventilated Gastrointestinal: Yes: Soft Genitourinary: Yes: Robbins Present Musculoskeletal: Yes: Muscle Weakness Edema: No Neurological: Yes: Lethargy Labs: CBC, BMP 10/23/19 07:40 10/23/19 06:00 INR, PTT INR 1.05 (0.83-1.09) 10/17/19 18:47 Assessment/Plan Current Medications Generic Name Dose Route Start Last Admin Trade Name Freq PRN Reason Stop Dose Admin Acetaminophen 650 mg 10/18/19 12:21 10/22/19 11:23 Tylenol Oral Solution - GT 650 mg Q6H PRN Administration PAIN Albuterol/Ipratropium 1 amp 10/18/19 08:00 10/23/19 11:56 Duoneb - NEB 1 amp RQID [facility] Administration Allopurinol 100 mg 10/18/19 10:00 10/23/19 09:36 Zyloprim - PEG 100 mg DAILY [facility] Administration Amlodipine Besylate 5 mg 10/18/19 10:00 10/23/19 09:36 Norvasc - PEG 5 mg DAILY [facility] Administration Ascorbic Acid 500 mg 10/18/19 13:00 10/23/19 09:44 Vitamin C Oral Solution - GT 500 mg DAILY [facility] Administration Atorvastatin Calcium 80 mg 10/18/19 22:00 10/22/19 21:49 Lipitor - PEG 80 mg HS [facility]IE Administration Banana Based Medical Food 1 packet 10/22/19 14:00 10/23/19 05:17 Banatrol Plus Powder Packet PO 1 packet TID [facility] Administration Cholecalciferol 1,000 unit 10/20/19 07:36 10/23/19 09:36 Vitamin D3 - GT 1,000 unit DAILY [facility] Administration Collagenase 1 applic 10/18/19 13:00 10/22/19 12:32 Santyl - TP 1 applic DAILY [facility] Administration Protocol Cyanocobalamin 1,000 mcg 10/20/19 07:36 10/23/19 09:37 Vitamin B12 - PEG 1,000 mcg DAILY [facility] Administration Ferrous Sulfate 300 mg 10/22/19 22:00 10/23/19 09:37 Feosol GT 300 mg BID [facility] Administration Heparin Sodium (Porcine) 5,000 unit 10/18/19 22:15 10/23/19 09:37 Heparin - SQ 5,000 unit BID [facility] Administration Meropenem 1 gm/ Dextrose 100 mls @ 200 mls/hr 10/20/19 18:00 10/23/19 09:34 IVPB 200 mls/hr Q8H-IV [facility] Administration Sodium Chloride 1,000 mls @ 35 mls/hr 10/22/19 13:37 10/22/19 20:29 1/2 Normal Saline IV 35 mls/hr ASDIR [facility]IE Administration Vancomycin HCl 1 gm in 250 mls @ 166.667 mls/hr 10/23/19 04:00 10/23/19 04:12 Vancomycin (Pre-Docked) IVPB 10/27/19 05:29 166.667 mls/hr Q12H [facility] Administration Protocol Insulin Aspart 1 vial 10/21/19 01:05 10/23/19 12:00 Novolog Vial Sliding Scale - SQ 7 units Q6HPO [facility] Administration Protocol Insulin Detemir 26 units 10/22/19 12:36 10/23/19 06:07 Levemir Vial SQ 26 units 0700,2200 [facility] Administration Lactobacillus Acidophilus 1 tab 10/20/19 17:00 10/23/19 09:37 Bacid - GT 1 tab DAILY [facility] Administration Levetiracetam 1,000 mg 10/18/19 12:30 10/23/19 09:37 Keppra Oral Solution - GT 1,000 mg BID [facility] Administration Multivitamins/Minerals 15 ml 10/18/19 12:30 10/23/19 09:44 Certavite-Antioxidant Liquid GT 15 ml DAILY [facility] Administration Nystatin 1 applic 10/18/19 12:30 10/22/19 21:49 Nystop Powder - TP 1 applic BID [facility] Administration Pantoprazole Sodium 40 mg 10/19/19 10:00 10/23/19 09:32 Protonix Iv IVPUSH 40 mg DAILY [facility] Administration Prednisone 5 mg 10/18/19 10:00 10/23/19 09:44 Deltasone - PEG 5 mg DAILY [facility] Administration Valproate Sodium 750 mg 10/18/19 14:00 10/23/19 05:14 Depakene - GT 750 mg TID [facility] Administration Impression 1. VESTA 2. DM 3. hypernatremia 4. resp failure 5. cva 6. copd 7. htn Plan - can d/c fluids - pt tolerating diet - cont vent support - cont to monitor lytes - corrected sodium is normal
--- NOTE | 2019-10-23 13:19 | PN ---
Progress Note, Physician History of Present Illness: non responsive non verbal spiking fevers - Current Medication List Current Medications: Active Medications Acetaminophen (Tylenol Oral Solution -) 650 mg GT Q6H PRN PRN Reason: PAIN Last Admin: 10/22/19 11:23 Dose: 650 mg Documented by: Albuterol/Ipratropium (Duoneb -) 1 amp NEB RQID [facility] Last Admin: 10/23/19 11:56 Dose: 1 amp Documented by: Allopurinol (Zyloprim -) 100 mg PEG DAILY [facility] Last Admin: 10/23/19 09:36 Dose: 100 mg Documented by: Amlodipine Besylate (Norvasc -) 5 mg PEG DAILY [facility] Last Admin: 10/23/19 09:36 Dose: 5 mg Documented by: Ascorbic Acid (Vitamin C Oral Solution -) 500 mg GT DAILY [facility] Last Admin: 10/23/19 09:44 Dose: 500 mg Documented by: Atorvastatin Calcium (Lipitor -) 80 mg PEG HS [facility] Last Admin: 10/22/19 21:49 Dose: 80 mg Documented by: Banana Based Medical Food (Banatrol Plus Powder Packet) 1 packet PO TID [facility] Last Admin: 10/23/19 05:17 Dose: 1 packet Documented by: Cholecalciferol (Vitamin D3 -) 1,000 unit GT DAILY [facility] Last Admin: 10/23/19 09:36 Dose: 1,000 unit Documented by: Collagenase (Santyl -) 1 applic TP DAILY [facility]; Protocol Last Admin: 10/22/19 12:32 Dose: 1 applic Documented by: Cyanocobalamin (Vitamin B12 -) 1,000 mcg PEG DAILY [facility] Last Admin: 10/23/19 09:37 Dose: 1,000 mcg Documented by: Ferrous Sulfate (Feosol) 300 mg GT BID [facility] Last Admin: 10/23/19 09:37 Dose: 300 mg Documented by: Heparin Sodium (Porcine) (Heparin -) 5,000 unit SQ BID [facility] Last Admin: 10/23/19 09:37 Dose: 5,000 unit Documented by: Meropenem 1 gm/ Dextrose 100 mls @ 200 mls/hr IVPB Q8H-IV [facility] Last Admin: 10/23/19 09:34 Dose: 200 mls/hr Documented by: Vancomycin HCl (Vancomycin (Pre-Docked)) 1 gm in 250 mls @ 166.667 mls/hr IVPB Q12H [facility]; Protocol Stop: 10/27/19 05:29 Last Admin: 10/23/19 04:12 Dose: 166.667 mls/hr Documented by: Insulin Aspart (Novolog Vial Sliding Scale -) 1 vial SQ Q6HPO [facility]; Protocol Last Admin: 10/23/19 12:00 Dose: 7 units Documented by: Insulin Detemir (Levemir Vial) 26 units SQ 0700,2200 [facility] Last Admin: 10/23/19 06:07 Dose: 26 units Documented by: Lactobacillus Acidophilus (Bacid -) 1 tab GT DAILY [facility] Last Admin: 10/23/19 09:37 Dose: 1 tab Documented by: Levetiracetam (Keppra Oral Solution -) 1,000 mg GT BID [facility] Last Admin: 10/23/19 09:37 Dose: 1,000 mg Documented by: Multivitamins/Minerals (Certavite-Antioxidant Liquid) 15 ml GT DAILY [facility] Last Admin: 10/23/19 09:44 Dose: 15 ml Documented by: Nystatin (Nystop Powder -) 1 applic TP BID [facility] Last Admin: 10/22/19 21:49 Dose: 1 applic Documented by: Pantoprazole Sodium (Protonix Iv) 40 mg IVPUSH DAILY [facility] Last Admin: 10/23/19 09:32 Dose: 40 mg Documented by: Prednisone (Deltasone -) 5 mg PEG DAILY [facility] Last Admin: 10/23/19 09:44 Dose: 5 mg Documented by: Valproate Sodium (Depakene -) 750 mg GT TID [facility] Last Admin: 10/23/19 05:14 Dose: 750 mg Documented by: - Objective Vital Signs: Vital Signs Temperature 98.2 F 10/23/19 11:00 Pulse Rate 96 H 10/23/19 11:00 Respiratory Rate 25 H 10/23/19 11:52 Blood Pressure 148/66 10/23/19 11:00 O2 Sat by Pulse Oximetry (%) 98 10/23/19 11:52 Constitutional: Yes: Other Respiratory: Yes: Other Gastrointestinal: Yes: Normal Bowel Sounds, Soft Musculoskeletal: Yes: WNL Extremities: Yes: Other Neurological: Yes: Other Psychiatric: Yes: Other Labs: CBC, BMP 10/23/19 07:40 10/23/19 06:00 INR, PTT INR 1.05 (0.83-1.09) 10/17/19 18:47 Assessment/Plan Problem List - Problems (1) Gram-negative bacteremia Code(s): R78.81 - BACTEREMIA (2) History of CVA (cerebrovascular accident) Code(s): Z86.73 - PRSNL HX OF TIA (TIA), AND CEREB INFRC W/O RESID DEFICITS (3) CAD (coronary artery disease) Code(s): I25.10 - ATHSCL HEART DISEASE OF [place] CORONARY ARTERY W/O ANG PCTRS (4) Diarrhea Code(s): R19.7 - DIARRHEA, UNSPECIFIED (5) VESTA (acute kidney injury) Code(s): N17.9 - ACUTE KIDNEY FAILURE, UNSPECIFIED (6) Pneumonia Code(s): J18.9 - PNEUMONIA, UNSPECIFIED ORGANISM Qualifiers: Pneumonia type: due to unspecified organism Laterality: unspecified l aterality Lung location: unspecified part of lung Qualified Code(s): J18.9 - Pneumonia, unspecified organism (7) Obese Code(s): E66.9 - OBESITY, UNSPECIFIED Qualifiers: Body mass index: BMI 60.0-69.9 (8) UTI (urinary tract infection) Code(s): N39.0 - URINARY TRACT INFECTION, SITE NOT SPECIFIED Qualifiers: Urinary tract infection type: site unspecified Hematuria presence: with hematuria Qualified Code(s): N39.0 - Urinary tract infection, site not specified; R31.9 - Hematuria, unspecified (9) Diabetes Code(s): E11.9 - TYPE 2 DIABETES MELLITUS WITHOUT COMPLICATIONS (10) HTN (hypertension) Code(s): I10 - ESSENTIAL (PRIMARY) HYPERTENSION (11) Hyperlipidemia Code(s): E78.5 - HYPERLIPIDEMIA, UNSPECIFIED (12) S/P CABG (coronary artery bypass graft) Code(s): Z95.1 - PRESENCE OF AORTOCORONARY BYPASS GRAFT (13) COPD (chronic obstructive pulmonary disease) Code(s): J44.9 - CHRONIC OBSTRUCTIVE PULMONARY DISEASE, UNSPECIFIED (14) Decubitus ulcer, stage 4 with infection Code(s): L89.94 - PRESSURE ULCER OF UNSPECIFIED SITE, STAGE 4; L08.9 - LOCAL INFECTION OF THE SKIN AND SUBCUTANEOUS TISSUE, UNSP (15) Lactic acid increased Code(s): E87.2 - ACIDOSIS (16) Metabolic encephalopathy Code(s): G93.41 - METABOLIC ENCEPHALOPATHY (17) Seizures Code(s): R56.9 - UNSPECIFIED CONVULSIONS (18) ESBL (extended spectrum beta-lactamase) producing bacteria infection Code(s): A49.9 - BACTERIAL INFECTION, UNSPECIFIED; Z16.12 - EXTENDED SPECTRUM BETA LACTAMASE (ESBL) RESISTANCE Assessment/Plan Sepsis Gram negative UTI with bacteremia ESBL + bacterial infection HCAP vs VAP Diarrhea Polymicrobial Sacral St IV DU infection/ likely OM Seizures Chronic respiratory failure s/p trach/MV Acute kidney injury Uncontrolled DM Morbid obesity Hx of CVA s/p thrombectomy CAD s/p CABG x 2 COPD Diastolic CHF HTN HLD plan continue abx rest as per the team monitor fevers
[2019-10-23] MEDS: COLLAGENASE CLOSTRIDIUM HIST. 30 GRAMS TUBE TP SCH (14:00)
--- NOTE | 2019-10-23 14:40 | CONSULT ---
- Consultation REQUESTING PROVIDER: CONSULT REQUEST: We have been asked to surgically evaluate this patient for decubitus ulcer PCP:Hilario Bee HISTORY OF PRESENT ILLNESS: 69yo F h/o CVA currently trached and vented, non responsive to verbal stimuli. Pt was admitted from SNF for pneumonia. It is unknown how long pt has had decub. Pt currently being treated with wet to dry with Santyl since admitted. Pt unable to give any history as is non-verbal. PMHx: diastolic congestive heart failure COPD NIDDM HTN HLD CVA s/p thrombectomy 09/2019 at [facility] with respiratory failure s/p tracheostomy and PEG tube placement PSHx: CVA s/p thrombectomy Home Medications Medication Instructions Recorded Albuterol Sulfate [Proair Hfa -] 1 inh PO ASDIR PRN 90 Days 05/17/15 [email or web address] Budesonide/Formeterol Fumarate 2 inh IH BID 90 Days inhaler 05/17/15 [SYMBICORT 80/4.5mcg -] Cholecalciferol (Vitamin D3) 1,000 unit PO DAILY 01/18/17 [Vitamin D3] Duloxetine HCl [Cymbalta] 30 mg PO AM 01/18/17 Gabapentin 400 mg PO TID PRN 01/18/17 Nitroglycerin [Nitrostat] 0.4 mg SL PRN 01/18/17 Pravastatin Sodium [Pravachol] 40 mg PO HS 01/18/17 Albuterol 2.5/Ipratropium 0.5 1 neb IH QID 7 Days #30 vial.neb. 03/03/19 [Duoneb -] Albuterol 0.083% Nebulizer Sil 1 neb NEB Q4H PRN #30 vial 03/04/19 [Ventolin 0.083% Nebulizer Soln -] Cyanocobalamin [Vitamin B12 -] 1,000 mcg PO DAILY 08/23/19 Fluticasone Prop 0.05% Nasal 1 - 2 spray NS BID 08/23/19 [Flonase -] Isosorbide Mononitrate [Isosorbide 60 mg PO DAILY 08/23/19 Mononitrate ER] Lisinopril [Prinivil] 20 mg PO DAILY 08/23/19 Metoprolol Succinate [Toprol XL -] 25 mg PO AM 08/23/19 Pramipexole Di-HCl [Pramipexole ER] 0.5 mg PO TID 08/23/19 Torsemide 20 mg PO AM 08/23/19 Allopurinol [Zyloprim -] 100 mg PO DAILY #30 tablet 08/31/19 Amlodipine Besylate [Norvasc -] 5 mg PO DAILY #30 tablet 08/31/19 metFORMIN HCL [Glucophage -] 500 mg PO BID@0700,1630 tablet 08/31/19 predniSONE [Deltasone -] 5 mg PO DAILY #20 tablet 08/31/19 Allergies Allergy/AdvReac Type Severity Reaction Status Date / Time aspirin Allergy Verified 10/17/19 17:51 Penicillins Allergy Hives Verified 10/17/19 17:51 codeine [Codeine] AdvReac HALLUCINATIONS, Verified 10/17/19 17:51 DROWSY morphine AdvReac HALLUCINATI Verified 10/17/19 17:51 ONS PHYSICAL EXAM: GENERAL: No acute distress, non responsive to verbal commands HEAD: cranial defect s/p craniotomy LUNGS: trached vented HEART: Regular rate and rhythm. No murmurs BACK: 12cm x 15 cm stage IV decub above sacrum, with fibrinous/necrotic tissue over sacrum. No erythema, serous discharge. Vital Signs Temperature 98.2 F 10/23/19 11:00 Pulse Rate 96 H 10/23/19 11:00 Respiratory Rate 25 H 10/23/19 11:52 Blood Pressure 148/66 10/23/19 11:00 O2 Sat by Pulse Oximetry (%) 98 10/23/19 11:52 Lab Results WBC 14.6 K/mm3 (4.0-10.0) H 10/23/19 07:40 RBC 4.27 M/mm3 (3.60-5.2) 10/23/19 07:40 Hgb 9.6 GM/dL (10.7-15.3) L 10/23/19 07:40 Hct 31.1 % (32.4-45.2) L 10/23/19 07:40 MCV 72.9 fl (80-96) L 10/23/19 07:40 MCHC 30.8 g/dl (32.0-36.0) L 10/23/19 07:40 RDW 20.1 % (11.6-15.6) H 10/23/19 07:40 Plt Count 375 K/MM3 (134-434) D 10/23/19 07:40 INR 1.05 (0.83-1.09) 10/17/19 18:47 Sodium 135 mmol/L (136-145) L 10/23/19 06:00 Potassium 4.9 mmol/L (3.5-5.1) 10/23/19 06:00 Chloride 100 mmol/L (98-107) 10/23/19 06:00 Carbon Dioxide 27 mmol/L (21-32) 10/23/19 06:00 Anion Gap 7 MMOL/L (8-16) L 10/23/19 06:00 BUN 16.8 mg/dL (7-18) 10/23/19 06:00 Creatinine 0.5 mg/dL (0.55-1.3) L 10/23/19 06:00 Random Glucose 358 mg/dL (74-106) H 10/23/19 06:00 Calcium 8.9 mg/dL (8.5-10.1) 10/23/19 06:00 Blood Type A POSITIVE 10/21/19 12:44 Antibody Screen Negative 10/21/19 12:44 Problem List - Problems (1) Decubitus ulcer, stage 4 with infection Assessment/Plan: Plan -will try placing wound vac to try and improve closure of decub -Reposition every two hours while in bed -Air mattress recommended -Use drawsheets and Trendelenburg when repositioning to reduce friction and shear -Manageincontinence via timely cleansing, use of appropriate incontinence disposables and use of barrier ointment to intact skin -Ensure adequate hydration/nutrition, supplementation per primary team -Ensure off-loading to all bony areas (heels, ankles, hips and tailbone) with Allevyn/Optifoam -Clean open wounds with normal saline and apply (insert ointment/dressing) Code(s): L89.94 - PRESSURE ULCER OF UNSPECIFIED SITE, STAGE 4; L08.9 - LOCAL INFECTION OF THE SKIN AND SUBCUTANEOUS TISSUE, UNSP
--- NOTE | 2019-10-23 15:11 | PROC ---
VAC Application - Indications Decubitus ulcer A decision was made to utilize Negative Pressure Therapy (Veraflo) to assist in: expedite wound closure through promotion of granulation tissue formation and/or help with debridement of fibrinous slough thus decreasing need for serial debridements. - Wound description Wound location: Sacrum Length (cm): 8 Width (cm): 7 Depth (cm): 7 Wound area (sq cm): 56.00 Wound Description: Muscle exposed: Yes, Tendon exposed: No, Bone exposed: No, Undermining: No - Device VAC Selection: Veraflo - Procedure Area cleansed. Prepped/draped. Veraflo perforated sponge tailored to fit just inside of wound and hogan foam on top to account for wound depth. Foam bridged to right hip. Suction disc placed in location so as not to be uncomfortable for the patient or cause any pressure point. Good seal as verified by complete foam collapse and no leak on unit monitor. Veraflo: Settings: Soak time: 2 mins Volume: 8mL Frequency: Every 2 hours - CPT Code CPT code: [id number] >50 sq cm
--- NOTE | 2019-10-23 15:50 | PN ---
Progress Note, Physician Chief Complaint: Pt unresponsive; +tracheostomy; on ventilator. Her sister is at bedside. History of Present Illness: Ms. Larson is a 69 yr old black woman with PMH of low-normal systolic/diastolic CHF, COPD, IDDM, HTN, HLD, CVA s/p thrombectomy 09/2019 at [facility], Respiratory failure s/p tracheostomy, obesity, PEG tube, now sent from [facility] for hyperglycemia and "dehydration". Per [place], blood sugar was "high" and BUN 111. Humulin 15u Q8h, humalog ss got 10u today. Pt is slow to respond and keeps eyes closed at baseline. Unable to obtain history from patient. per lab results sent from [place], glucose in the 400s, BUN 111, Cr 1.6. pt has had normal kidney function in the past. - Current Medication List Current Medications: Active Medications Acetaminophen (Tylenol Oral Solution -) 650 mg GT Q6H PRN PRN Reason: PAIN Last Admin: 10/22/19 11:23 Dose: 650 mg Documented by: Albuterol/Ipratropium (Duoneb -) 1 amp NEB RQID [facility] Last Admin: 10/23/19 15:35 Dose: 1 amp Documented by: Allopurinol (Zyloprim -) 100 mg PEG DAILY [facility] Last Admin: 10/23/19 09:36 Dose: 100 mg Documented by: Amlodipine Besylate (Norvasc -) 5 mg PEG DAILY [facility] Last Admin: 10/23/19 09:36 Dose: 5 mg Documented by: Ascorbic Acid (Vitamin C Oral Solution -) 500 mg GT DAILY [facility] Last Admin: 10/23/19 09:44 Dose: 500 mg Documented by: Atorvastatin Calcium (Lipitor -) 80 mg PEG HS [facility] Last Admin: 10/22/19 21:49 Dose: 80 mg Documented by: Banana Based Medical Food (Banatrol Plus Powder Packet) 1 packet PO TID [facility] Last Admin: 10/23/19 14:16 Dose: 1 packet Documented by: Cholecalciferol (Vitamin D3 -) 1,000 unit GT DAILY [facility] Last Admin: 10/23/19 09:36 Dose: 1,000 unit Documented by: Collagenase (Santyl -) 1 applic TP DAILY [facility]; Protocol Last Admin: 10/23/19 14:00 Dose: 1 applic Documented by: Cyanocobalamin (Vitamin B12 -) 1,000 mcg PEG DAILY [facility] Last Admin: 10/23/19 09:37 Dose: 1,000 mcg Documented by: Ferrous Sulfate (Feosol) 300 mg GT BID [facility] Last Admin: 10/23/19 09:37 Dose: 300 mg Documented by: Heparin Sodium (Porcine) (Heparin -) 5,000 unit SQ BID [facility] Last Admin: 10/23/19 09:37 Dose: 5,000 unit Documented by: Meropenem 1 gm/ Dextrose 100 mls @ 200 mls/hr IVPB Q8H-IV [facility] Last Admin: 10/23/19 09:34 Dose: 200 mls/hr Documented by: Vancomycin HCl (Vancomycin (Pre-Docked)) 1 gm in 250 mls @ 166.667 mls/hr IVPB Q12H [facility]; Protocol Stop: 10/27/19 05:29 Last Admin: 10/23/19 15:18 Dose: 166.667 mls/hr Documented by: Insulin Aspart (Novolog Vial Sliding Scale -) 1 vial SQ Q6HPO [facility]; Protocol Last Admin: 10/23/19 12:00 Dose: 7 units Documented by: Insulin Detemir (Levemir Vial) 26 units SQ 0700,2200 [facility] Last Admin: 10/23/19 06:07 Dose: 26 units Documented by: Lactobacillus Acidophilus (Bacid -) 1 tab GT DAILY [facility] Last Admin: 10/23/19 09:37 Dose: 1 tab Documented by: Levetiracetam (Keppra Oral Solution -) 1,000 mg GT BID [facility] Last Admin: 10/23/19 09:37 Dose: 1,000 mg Documented by: Multivitamins/Minerals (Certavite-Antioxidant Liquid) 15 ml GT DAILY [facility] Last Admin: 10/23/19 09:44 Dose: 15 ml Documented by: Nystatin (Nystop Powder -) 1 applic TP BID [facility] Last Admin: 10/23/19 10:21 Dose: 1 applic Documented by: Pantoprazole Sodium (Protonix Iv) 40 mg IVPUSH DAILY [facility] Last Admin: 10/23/19 09:32 Dose: 40 mg Documented by: Prednisone (Deltasone -) 5 mg PEG DAILY [facility] Last Admin: 10/23/19 09:44 Dose: 5 mg Documented by: Valproate Sodium (Depakene -) 750 mg GT TID [facility] Last Admin: 10/23/19 15:15 Dose: 750 mg Documented by: - Objective Vital Signs: Vital Signs Temperature 100.2 F H 10/23/19 15:36 Pulse Rate 99 H 10/23/19 15:36 Respiratory Rate 21 H 10/23/19 15:41 Blood Pressure 154/79 10/23/19 15:36 O2 Sat by Pulse Oximetry (%) 97 10/23/19 15:41 Constitutional: Yes: Obese Cardiovascular: Yes: S1, S2, S4 Respiratory: Yes: Diminished (left base) Gastrointestinal: Yes: Soft Labs: CBC, BMP 10/23/19 07:40 10/23/19 06:00 INR, PTT INR 1.05 (0.83-1.09) 10/17/19 18:47 Assessment/Plan Plan: On amllodipine for HTN; start lisinopril 5 mg daily (HTN; low-normal systolic/diastolic CHF; DM). ABX resp support DVT plx IVF F/u BUn/Cr, electrolytes, daily weight, Is and Os.
[2019-10-23] MEDS: ACETAMINOPHEN 650 MG/20.3 ML ORAL SOLUTION (CUPS) GT PRN (17:45)
--- NOTE | 2019-10-23 17:52 | PN.GI ---
GI Progress Note Subjective: GI NOte: Fabiola today's nurse describes the majority of bowel movements as being pasty and continuous - Objective Vital Signs: Vital Signs Temperature 100.2 F H 10/23/19 15:36 Pulse Rate 99 H 10/23/19 15:36 Respiratory Rate 21 H 10/23/19 15:41 Blood Pressure 154/79 10/23/19 15:36 O2 Sat by Pulse Oximetry (%) 97 10/23/19 15:41 Constitutional: Other (noncommunicative) ...Auscultate: Yes: Hypoactive Bowel Sounds ...Palpate: Yes: Soft, Other (nontender) Labs: CBC, BMP 10/23/19 07:40 10/23/19 06:00 INR, PTT INR 1.05 (0.83-1.09) 10/17/19 18:47 Assessment/Plan Impression; - Given the stool description I am beginning to suspect paradoxical diarrhea due to fecal impaction for which Niki is certainly a candidate. SIBO ( small bowel bacterial overgrowth syndrome) is an alternative possibility. Await stool for WBCs - Her elevated LFTs could reflect [place], GB stone or sludge passage but will pursue liver testing for chronic liver diseases etiologies and [place] Fibrosure screen for other etiologies - Her stool is guaiac negative but cannot exclude an intermittently GI bleeding lesion as contributing to her anemia. She is not a candidate for elective endoscopies Plan: -- KUB to asses fecal load -- Stool for WBCs, enteric pathogens, O&P. -- Screening for chronic liver disease etiologies -- Liver and bile duct sonogram -- Not a candidate for elective endoscopies Problem List - Problems (1) Diarrhea Code(s): R19.7 - DIARRHEA, UNSPECIFIED (2) Abnormal liver function tests Code(s): R94.5 - ABNORMAL RESULTS OF LIVER FUNCTION STUDIES (3) Gallstones Code(s): K80.20 - CALCULUS OF GALLBLADDER W/O CHOLECYSTITIS W/O OBSTRUCTION (4) Fatty liver Code(s): K76.0 - FATTY (CHANGE OF) LIVER, NOT ELSEWHERE CLASSIFIED (5) CAD (coronary artery disease) Code(s): I25.10 - ATHSCL HEART DISEASE OF [place] CORONARY ARTERY W/O ANG PCTRS (6) COPD (chronic obstructive pulmonary disease) Code(s): J44.9 - CHRONIC OBSTRUCTIVE PULMONARY DISEASE, UNSPECIFIED (7) History of CVA (cerebrovascular accident) Code(s): Z86.73 - PRSNL HX OF TIA (TIA), AND CEREB INFRC W/O RESID DEFICITS (8) Metabolic encephalopathy Code(s): G93.41 - METABOLIC ENCEPHALOPATHY (9) Seizures Code(s): R56.9 - UNSPECIFIED CONVULSIONS
[2019-10-23] MEDS: LISINOPRIL 5 MG TABLET (FP) PO SCH (18:00)
--- NOTE | 2019-10-23 18:15 | PN ---
Progress Note, Physician Chief Complaint: Hyperglycemia Dehydration VESTA History of Present Illness: NAD obtunded Mech vented Remains febrile LA elevated On IV abx On rectal tube now- continues to have diarrhea Seen by GI- possible overflow diarrhea? - Current Medication List Current Medications: Active Medications Acetaminophen (Tylenol Oral Solution -) 650 mg GT Q6H PRN PRN Reason: PAIN Last Admin: 10/23/19 17:45 Dose: 650 mg Documented by: Albuterol/Ipratropium (Duoneb -) 1 amp NEB RQID [facility] Last Admin: 10/23/19 15:35 Dose: 1 amp Documented by: Allopurinol (Zyloprim -) 100 mg PEG DAILY [facility] Last Admin: 10/23/19 09:36 Dose: 100 mg Documented by: Amlodipine Besylate (Norvasc -) 5 mg PEG DAILY [facility] Last Admin: 10/23/19 09:36 Dose: 5 mg Documented by: Ascorbic Acid (Vitamin C Oral Solution -) 500 mg GT DAILY [facility] Last Admin: 10/23/19 09:44 Dose: 500 mg Documented by: Atorvastatin Calcium (Lipitor -) 80 mg PEG HS [facility] Last Admin: 10/22/19 21:49 Dose: 80 mg Documented by: Banana Based Medical Food (Banatrol Plus Powder Packet) 1 packet PO TID [facility] Last Admin: 10/23/19 14:16 Dose: 1 packet Documented by: Cholecalciferol (Vitamin D3 -) 1,000 unit GT DAILY [facility] Last Admin: 10/23/19 09:36 Dose: 1,000 unit Documented by: Collagenase (Santyl -) 1 applic TP DAILY [facility]; Protocol Last Admin: 10/23/19 14:00 Dose: 1 applic Documented by: Cyanocobalamin (Vitamin B12 -) 1,000 mcg PEG DAILY [facility] Last Admin: 10/23/19 09:37 Dose: 1,000 mcg Documented by: Ferrous Sulfate (Feosol) 300 mg GT BID [facility] Last Admin: 10/23/19 09:37 Dose: 300 mg Documented by: Heparin Sodium (Porcine) (Heparin -) 5,000 unit SQ BID [facility] Last Admin: 10/23/19 09:37 Dose: 5,000 unit Documented by: Meropenem 1 gm/ Dextrose 100 mls @ 200 mls/hr IVPB Q8H-IV [facility] Last Admin: 10/23/19 09:34 Dose: 200 mls/hr Documented by: Vancomycin HCl (Vancomycin (Pre-Docked)) 1 gm in 250 mls @ 166.667 mls/hr IVPB Q12H [facility]; Protocol Stop: 10/27/19 05:29 Last Admin: 10/23/19 15:18 Dose: 166.667 mls/hr Documented by: Insulin Aspart (Novolog Vial Sliding Scale -) 1 vial SQ Q6HPO [facility]; Protocol Last Admin: 10/23/19 17:32 Dose: 7 units Documented by: Insulin Detemir (Levemir Vial) 26 units SQ 0700,2200 [facility] Last Admin: 10/23/19 06:07 Dose: 26 units Documented by: Lactobacillus Acidophilus (Bacid -) 1 tab GT DAILY [facility] Last Admin: 10/23/19 09:37 Dose: 1 tab Documented by: Levetiracetam (Keppra Oral Solution -) 1,000 mg GT BID [facility] Last Admin: 10/23/19 09:37 Dose: 1,000 mg Documented by: Lisinopril (Prinivil) 5 mg PO DAILY [facility] Last Admin: 10/23/19 18:00 Dose: 5 mg Documented by: Multivitamins/Minerals (Certavite-Antioxidant Liquid) 15 ml GT DAILY [facility] Last Admin: 10/23/19 09:44 Dose: 15 ml Documented by: Nystatin (Nystop Powder -) 1 applic TP BID [facility] Last Admin: 10/23/19 10:21 Dose: 1 applic Documented by: Pantoprazole Sodium (Protonix Iv) 40 mg IVPUSH DAILY [facility] Last Admin: 10/23/19 09:32 Dose: 40 mg Documented by: Prednisone (Deltasone -) 5 mg PEG DAILY [facility] Last Admin: 10/23/19 09:44 Dose: 5 mg Documented by: Valproate Sodium (Depakene -) 750 mg GT TID [facility] Last Admin: 10/23/19 15:15 Dose: 750 mg Documented by: - Objective Vital Signs: Vital Signs Temperature 100.2 F H 10/23/19 15:36 Pulse Rate 99 H 10/23/19 15:36 Respiratory Rate 21 H 10/23/19 15:41 Blood Pressure 154/79 10/23/19 15:36 O2 Sat by Pulse Oximetry (%) 97 10/23/19 15:41 Constitutional: Yes: Well Nourished, No Distress, Calm Cardiovascular: Yes: Regular Rate and Rhythm Respiratory: Yes: Regular, Mechanically Ventilated, Rales (diffuse) Gastrointestinal: Yes: Normal Bowel Sounds, Soft, Abdomen, Obese Genitourinary: Yes: Robbins Present Edema: No Peripheral Pulses WNL: Yes Integumentary: Yes: Pressure Ulcer (Sacral and BL heels) Neurological: Yes: Pre-Existing Deficit Labs: CBC, BMP 10/23/19 07:40 10/23/19 06:00 INR, PTT INR 1.05 (0.83-1.09) 10/17/19 18:47 Problem List - Problems (1) Metabolic encephalopathy Assessment/Plan: -Cultures: Microbiology 10/17/19 18:40 Blood - Peripheral Venous Blood Culture - Final Proteus Mirabilus - Esbl Produ 10/18/19 18:10 Sputum - Endotrachea Suction/Ventilator Gram Stain - Final 10/18/19 18:10 Sputum - Endotrachea Suction/Ventilator Sputum Culture - Final Proteus Mirabilus - Esbl Produ Mr S Aureus 10/19/19 18:00 Blood - Peripheral Venous Blood Culture - Preliminary NO GROWTH OBTAINED AFTER 48 HOURS, INCUBATION TO CONTINUE FOR 3 DAYS. 10/19/19 17:50 Blood - Peripheral Venous Blood Culture - Preliminary NO GROWTH OBTAINED AFTER 48 HOURS, INCUBATION TO CONTINUE FOR 3 DAYS. 10/17/19 20:36 Urine - Urine - Catheterized Urine Culture - Final Proteus Mirabilus - Esbl Produ 10/18/19 23:00 Decubiti Gram Stain - Final 10/18/19 23:00 Decubiti Wound Culture - Final Proteus Species Lactose Fermenting Neg Bacilli Pseudomonas Species 10/17/19 18:40 Blood - Peripheral Venous Blood Culture - Final Proteus Mirabilus - Esbl Produ 10/18/19 03:30 Urine - Urine Robbins Urine Culture - Final Proteus Mirabilus - Esbl Produ 10/18/19 18:10 Stool Clostridioides difficile Antigen - Final 10/18/19 18:10 Stool Clostridioides difficile Toxin Assay - Final -ID consult -IV abx as per ID Problems reviewed: Yes Code(s): G93.41 - METABOLIC ENCEPHALOPATHY (2) VESTA (acute kidney injury) Assessment/Plan: -Nephrology consult -Gentle IVF -Monitor trend Problems reviewed: Yes Code(s): N17.9 - ACUTE KIDNEY FAILURE, UNSPECIFIED (3) Acute hypercapnic respiratory failure Assessment/Plan: -Pulmonary consult -Mech vent -Failed weaning trial this AM Problems reviewed: Yes Code(s): J96.02 - ACUTE RESPIRATORY FAILURE WITH HYPERCAPNIA (4) Diabetes Assessment/Plan: -BGM Q6H -A1c at 10.9 -ISS -Increase Levemir to 26 U BID -Endocrine consult Problems reviewed: Yes Code(s): E11.9 - TYPE 2 DIABETES MELLITUS WITHOUT COMPLICATIONS (5) Bacteremia Assessment/Plan: -ID consult -Febrile -Monitor labs -IV abx -LA noted Problems reviewed: Yes Code(s): R78.81 - BACTEREMIA (6) Pneumonia Assessment/Plan: -CXR LLL infiltrate -ID consult -Pulmonary consult -COVID 19 Negative Problems reviewed: Yes Code(s): J18.9 - PNEUMONIA, UNSPECIFIED ORGANISM Qualifiers: Pneumonia type: due to unspecified organism Laterality: unspecified laterality Lung location: unspecified part of lung Qualified Code(s): J18.9 - Pneumonia, unspecified organism (7) MRSA (methicillin resistant staph aureus) culture positive Problems reviewed: Yes Code(s): Z22.322 - CARRIER OR SUSPECTED CARRIER OF METHICILLIN RESIS STAPH (8) Anemia Assessment/Plan: -FANNY -Stool OB negative -B12, thyroid profile unremarkable -S/P 1 U PRBC -Monitor trend -Increase Ferrous sulfate to BID Problems reviewed: Yes Code(s): D64.9 - ANEMIA, UNSPECIFIED (9) Diarrhea Assessment/Plan: -Continue rectal tube -Cdiff negative -On Bacid -Add Bannitrol -AXR today -GI consult Problems reviewed: Yes Code(s): R19.7 - DIARRHEA, UNSPECIFIED (10) Seizures Assessment/Plan: -Twitching noted in RUE -Seen by Neurology -No changes in Keppra and Depakote -Exacerbated by acute infection? Problems reviewed: Yes Code(s): R56.9 - UNSPECIFIED CONVULSIONS Assessment/Plan See problem list Overall poor prognosis Palliative care on board Daughter wants everything done and LTACH placement when ready for dc
[2019-10-23] MEDS: ATORVASTATIN CA 80 MG TABLET (FP) PEG SCH (22:31)
[2019-10-24] MEDS: INSULIN SLIDING SCALE (NOVOLOG) 1 VIAL SQ SCH ×4 (00:02→18:22)
[2019-10-24] MEDS ORDERED: MEROPENEM 1 GM VIAL (RESTRICTED TO ID) IVPB ONE ×3 (02:05→18:06)
[2019-10-24] MEDS ORDERED: DEXTROSE 5%-WATER 100 ML IVPB ONE ×3 (02:06→18:06)
[2019-10-24] MEDS: MEROPENEM 1 GM in DEXTROSE 5%-WATER 100 ML IVPB SCH ×3 (02:14→18:21)
[2019-10-24] MEDS: VANCOMYCIN 1 GRAM (PRE-DOCKED) 1 GM/250 ML BAG IVPB SCH (04:00)
[2019-10-24] MEDS: VALPROATE SODIUM 250 MG/5 ML UNIT DOSE CUP GT SCH ×3 (05:59→22:09)
[2019-10-24] MEDS: BANATROL PLUS POWDER PACKET PO SCH ×3 (05:59→22:09)
[2019-10-24] MEDS: INSULIN (LEVEMIR) 100 UNITS/ML UNITS SQ SCH ×2 (06:00→22:10)
[2019-10-24] MEDS: ALBUTEROL SO4 2.5/IPRATROPIUM 0.5 INH SOL 3 ML VIAL.NEB. NEB SCH ×4 (08:20→20:37)
[2019-10-24 08:59] LABS: BASO % 0.3 % (0-2.0); EOS % 1.1 % (0-4.5); HEMATOCRIT 28.5 % (32.4-45.2); LYMPH % 20.2 % (8-40); MCH 23.2 pg (25.7-33.7); MCHC 31.6 g/dl (32.0-36.0); MEAN CELL VOLUME 73.6 fl (80-96); MEAN PLT VOLUME 8.6 fl (7.5-11.1); MONO % 9.2 % (3.8-10.2); NEUT % 69.2 % (42.8-82.8); PLATELET COUNT 348 K/MM3 (134-434); RBC 3.88 M/mm3 (3.60-5.2); RDW 20.8 % (11.6-15.6); WHITE BLOOD COUNT 13.7 K/mm3 (4.0-10.0)
[2019-10-24 09:22] LABS: ALBUMIN 1.4 g/dl (3.4-5.0); BILIRUBIN,TOTAL 0.3 mg/dL (0.2-1); BLOOD UREA NITROGEN 15.3 mg/dL (7-18); CALCIUM 9.1 mg/dL (8.5-10.1); CREATININE 0.4 mg/dL (0.55-1.3); POTASSIUM 4.5 mmol/L (3.5-5.1); TOT PROT 5.6 g/dl (6.4-8.2)
[2019-10-24 09:45] LABS: ANISOCYTOSIS 2+; MACROCYTOSIS 1+; PLATELET ESTIMATE NORMAL
--- NOTE | 2019-10-24 10:03 | PN ---
Progress Note, Physician History of Present Illness: pulmonary no change unresponsive on vent support ac mode,febrile 100.2 - Current Medication List Current Medications: Active Medications Acetaminophen (Tylenol Oral Solution -) 650 mg GT Q6H PRN PRN Reason: PAIN Last Admin: 10/23/19 17:45 Dose: 650 mg Documented by: Albuterol/Ipratropium (Duoneb -) 1 amp NEB RQID [facility] Last Admin: 10/24/19 08:20 Dose: 1 amp Documented by: Allopurinol (Zyloprim -) 100 mg PEG DAILY [facility] Last Admin: 10/23/19 09:36 Dose: 100 mg Documented by: Amino Acids (Prosource No Carb Liquid Pkt) 30 ml GT BID@0800,1730 [facility] Amlodipine Besylate (Norvasc -) 5 mg PEG DAILY [facility] Last Admin: 10/23/19 09:36 Dose: 5 mg Documented by: Ascorbic Acid (Vitamin C Oral Solution -) 500 mg GT DAILY [facility] Last Admin: 10/23/19 09:44 Dose: 500 mg Documented by: Atorvastatin Calcium (Lipitor -) 80 mg PEG HS [facility] Last Admin: 10/23/19 22:31 Dose: 80 mg Documented by: Banana Based Medical Food (Banatrol Plus Powder Packet) 1 packet PO TID [facility] Last Admin: 10/24/19 05:59 Dose: 1 packet Documented by: Cholecalciferol (Vitamin D3 -) 1,000 unit GT DAILY [facility] Last Admin: 10/23/19 09:36 Dose: 1,000 unit Documented by: Collagenase (Santyl -) 1 applic TP DAILY [facility]; Protocol Last Admin: 10/23/19 14:00 Dose: 1 applic Documented by: Cyanocobalamin (Vitamin B12 -) 1,000 mcg PEG DAILY [facility] Last Admin: 10/23/19 09:37 Dose: 1,000 mcg Documented by: Ferrous Sulfate (Feosol) 300 mg GT BID [facility] Last Admin: 10/23/19 22:31 Dose: 300 mg Documented by: Heparin Sodium (Porcine) (Heparin -) 5,000 unit SQ BID [facility] Last Admin: 10/23/19 22:31 Dose: 5,000 unit Documented by: Meropenem 1 gm/ Dextrose 100 mls @ 200 mls/hr IVPB Q8H-IV [facility] Last Admin: 10/24/19 02:14 Dose: 200 mls/hr Documented by: Vancomycin HCl (Vancomycin (Pre-Docked)) 1 gm in 250 mls @ 166.667 mls/hr IVPB Q12H [facility]; Protocol Stop: 10/27/19 05:29 Last Admin: 10/24/19 04:00 Dose: 166.667 mls/hr Documented by: Insulin Aspart (Novolog Vial Sliding Scale -) 1 vial SQ Q6HPO [facility]; Protocol Last Admin: 10/24/19 06:00 Dose: 6 units Documented by: Insulin Detemir (Levemir Vial) 32 units SQ 0700,2200 [facility] Last Admin: 10/24/19 06:00 Dose: 32 units Documented by: Lactobacillus Acidophilus (Bacid -) 1 tab GT DAILY [facility] Last Admin: 10/23/19 09:37 Dose: 1 tab Documented by: Levetiracetam (Keppra Oral Solution -) 1,000 mg GT BID [facility] Last Admin: 10/23/19 22:31 Dose: 1,000 mg Documented by: Lisinopril (Prinivil) 5 mg PO DAILY [facility] Last Admin: 10/23/19 18:00 Dose: 5 mg Documented by: Multivitamins/Minerals (Certavite-Antioxidant Liquid) 15 ml GT DAILY [facility] Last Admin: 10/23/19 09:44 Dose: 15 ml Documented by: Nystatin (Nystop Powder -) 1 applic TP BID [facility] Last Admin: 10/23/19 22:32 Dose: 1 applic Documented by: Pantoprazole Sodium (Protonix Iv) 40 mg IVPUSH DAILY [facility] Last Admin: 10/23/19 09:32 Dose: 40 mg Documented by: Prednisone (Deltasone -) 5 mg PEG DAILY [facility] Last Admin: 10/23/19 09:44 Dose: 5 mg Documented by: Valproate Sodium (Depakene -) 750 mg GT TID [facility] Last Admin: 10/24/19 05:59 Dose: 750 mg Documented by: - Objective Vital Signs: Vital Signs Temperature 100.2 F H 10/24/19 06:00 Pulse Rate 81 10/24/19 08:50 Respiratory Rate 17 10/24/19 08:50 Blood Pressure 135/59 L 10/24/19 06:00 O2 Sat by Pulse Oximetry (%) 99 10/24/19 08:50 Constitutional: Yes: Well Nourished, Other (unresponsive) Eyes: Yes: WNL HENT: Yes: WNL Neck: Yes: Supple (trach) Cardiovascular: Yes: Regular Rate and Rhythm, S2 Respiratory: Yes: Diminished Gastrointestinal: Yes: Normal Bowel Sounds, Soft Extremities: Yes: WNL Edema: No Labs: CBC, BMP 10/24/19 08:00 10/24/19 08:00 INR, PTT INR 1.05 (0.83-1.09) 10/17/19 18:47 Problem List - Problems (1) Lactic acid increased Code(s): E87.2 - ACIDOSIS (2) VESTA (acute kidney injury) Code(s): N17.9 - ACUTE KIDNEY FAILURE, UNSPECIFIED (3) Bacteremia Code(s): R78.81 - BACTEREMIA (4) CAD (coronary artery disease) Code(s): I25.10 - ATHSCL HEART DISEASE OF [place] CORONARY ARTERY W/O ANG PCTRS (5) COPD (chronic obstructive pulmonary disease) Code(s): J44.9 - CHRONIC OBSTRUCTIVE PULMONARY DISEASE, UNSPECIFIED (6) Gram-negative bacteremia Code(s): R78.81 - BACTEREMIA (7) History of CVA (cerebrovascular accident) Code(s): Z86.73 - PRSNL HX OF TIA (TIA), AND CEREB INFRC W/O RESID DEFICITS (8) Pneumonia Code(s): J18.9 - PNEUMONIA, UNSPECIFIED ORGANISM Qualifiers: Pneumonia type: due to unspecified organism Laterality: unspecified laterality Lung location: unspecified part of lung Qualified Code(s): J18.9 - Pneumonia, unspecified organism (9) Arteriosclerotic heart disease (ASHD) Code(s): I25.10 - ATHSCL HEART DISEASE OF [place] CORONARY ARTERY W/O ANG PCTRS (10) Diabetes Code(s): E11.9 - TYPE 2 DIABETES MELLITUS WITHOUT COMPLICATIONS (11) HTN (hypertension) Code(s): I10 - ESSENTIAL (PRIMARY) HYPERTENSION (12) S/P CABG (coronary artery bypass graft) Code(s): Z95.1 - PRESENCE OF AORTOCORONARY BYPASS GRAFT (13) Chronic respiratory failure Code(s): J96.10 - CHRONIC RESPIRATORY FAILURE, UNSP W HYPOXIA OR HYPERCAPNIA (14) Sepsis Code(s): A41.9 - SEPSIS, UNSPECIFIED ORGANISM (15) High glucose Code(s): R73.09 - OTHER ABNORMAL GLUCOSE Assessment/Plan IMP CHRONIC RESPIRATORY FAILURE S/P CVA WITH THROMBECTOMY UROSEPSIS GRAM NEG BACTEREMIA PROTEUS ? PNEUMONIA ELEVATED LACTATE LEVEL ASHD S/P CABG COPD HTN HLD DIASTOLIC HF SACRAL DECUBITUS VESTA ANEMIA PLAN VENT SUPPORT ON AC MODE IVF ABX PER ID MONITOR LYTES,RENAL FUNCTION,H+H F/U CHEST X-RAYS WOUND CARE TREND LACTATE DR DUKE Problem List - Problems (1) Lactic acid increased Code(s): E87.2 - ACIDOSIS (2) VESTA (acute kidney injury) Code(s): N17.9 - ACUTE KIDNEY FAILURE, UNSPECIFIED (3) Bacteremia Code(s): R78.81 - BACTEREMIA (4) CAD (coronary artery disease) Code(s): I25.10 - ATHSCL HEART DISEASE OF [place] CORONARY ARTERY W/O ANG PCTRS (5) COPD (chronic obstructive pulmonary disease) Code(s): J44.9 - CHRONIC OBSTRUCTIVE PULMONARY DISEASE, UNSPECIFIED (6) Gram-negative bacteremia Code(s): R78.81 - BACTEREMIA (7) History of CVA (cerebrovascular accident) Code(s): Z86.73 - PRSNL HX OF TIA (TIA), AND CEREB INFRC W/O RESID DEFICITS (8) Pneumonia Code(s): J18.9 - PNEUMONIA, UNSPECIFIED ORGANISM Qualifiers: Pneumonia type: due to unspecified organism Laterality: unspecified laterality Lung location: unspecified part of lung Qualified Code(s): J18.9 - Pneumonia, unspecified organism (9) Arteriosclerotic heart disease (ASHD) Code(s): I25.10 - ATHSCL HEART DISEASE OF [place] CORONARY ARTERY W/O ANG PCTRS (10) Diabetes Code(s): E11.9 - TYPE 2 DIABETES MELLITUS WITHOUT COMPLICATIONS (11) HTN (hypertension) Code(s): I10 - ESSENTIAL (PRIMARY) HYPERTENSION (12) S/P CABG (coronary artery bypass graft) Code(s): Z95.1 - PRESENCE OF AORTOCORONARY BYPASS GRAFT (13) Chronic respiratory failure Code(s): J96.10 - CHRONIC RESPIRATORY FAILURE, UNSP W HYPOXIA OR HYPERCAPNIA (14) Sepsis Code(s): A41.9 - SEPSIS, UNSPECIFIED ORGANISM (15) High glucose Code(s): R73.09 - OTHER ABNORMAL GLUCOSE
[2019-10-24] MEDS ORDERED: PT OWN MED DRAWER 7, Y5N ONE ×5 (11:47→22:42)
--- NOTE | 2019-10-24 11:54 | PN ---
Progress Note, Physician Chief Complaint: Hyperglycemia Dehydration VESTA History of Present Illness: NAD obtunded Mech vented Remains febrile LA elevated On IV abx On rectal tube now- continues to have diarrhea Seen by GI- possible overflow diarrhea? - Current Medication List Current Medications: Active Medications Acetaminophen (Tylenol Oral Solution -) 650 mg GT Q6H PRN PRN Reason: PAIN Last Admin: 10/23/19 17:45 Dose: 650 mg Documented by: Albuterol/Ipratropium (Duoneb -) 1 amp NEB RQID [facility] Last Admin: 10/24/19 11:20 Dose: 1 amp Documented by: Allopurinol (Zyloprim -) 100 mg PEG DAILY [facility] Last Admin: 10/23/19 09:36 Dose: 100 mg Documented by: Amino Acids (Prosource No Carb Liquid Pkt) 30 ml GT BID@0800,1730 [facility] Amlodipine Besylate (Norvasc -) 5 mg PEG DAILY [facility] Last Admin: 10/23/19 09:36 Dose: 5 mg Documented by: Ascorbic Acid (Vitamin C Oral Solution -) 500 mg GT DAILY [facility] Last Admin: 10/23/19 09:44 Dose: 500 mg Documented by: Atorvastatin Calcium (Lipitor -) 80 mg PEG HS [facility] Last Admin: 10/23/19 22:31 Dose: 80 mg Documented by: Banana Based Medical Food (Banatrol Plus Powder Packet) 1 packet PO TID [facility] Last Admin: 10/24/19 05:59 Dose: 1 packet Documented by: Cholecalciferol (Vitamin D3 -) 1,000 unit GT DAILY [facility] Last Admin: 10/23/19 09:36 Dose: 1,000 unit Documented by: Collagenase (Santyl -) 1 applic TP DAILY [facility]; Protocol Last Admin: 10/23/19 14:00 Dose: 1 applic Documented by: Cyanocobalamin (Vitamin B12 -) 1,000 mcg PEG DAILY [facility] Last Admin: 10/23/19 09:37 Dose: 1,000 mcg Documented by: Ferrous Sulfate (Feosol) 300 mg GT BID [facility] Last Admin: 10/23/19 22:31 Dose: 300 mg Documented by: Heparin Sodium (Porcine) (Heparin -) 5,000 unit SQ BID [facility] Last Admin: 10/23/19 22:31 Dose: 5,000 unit Documented by: Meropenem 1 gm/ Dextrose 100 mls @ 200 mls/hr IVPB Q8H-IV [facility] Last Admin: 10/24/19 02:14 Dose: 200 mls/hr Documented by: Vancomycin HCl 1,250 mg/ (Dextrose) 250 mls @ 166.667 mls/hr IVPB Q12H [facility]; Protocol Insulin Aspart (Novolog Vial Sliding Scale -) 1 vial SQ Q6HPO [facility]; Protocol Last Admin: 10/24/19 06:00 Dose: 6 units Documented by: Insulin Detemir (Levemir Vial) 32 units SQ 0700,2200 [facility] Last Admin: 10/24/19 06:00 Dose: 32 units Documented by: Lactobacillus Acidophilus (Bacid -) 1 tab GT DAILY [facility] Last Admin: 10/23/19 09:37 Dose: 1 tab Documented by: Levetiracetam (Keppra Oral Solution -) 1,000 mg GT BID [facility] Last Admin: 10/23/19 22:31 Dose: 1,000 mg Documented by: Lisinopril (Prinivil) 5 mg PO DAILY [facility] Last Admin: 10/23/19 18:00 Dose: 5 mg Documented by: Multivitamins/Minerals (Certavite-Antioxidant Liquid) 15 ml GT DAILY [facility] Last Admin: 10/23/19 09:44 Dose: 15 ml Documented by: Nystatin (Nystop Powder -) 1 applic TP BID [facility] Last Admin: 10/23/19 22:32 Dose: 1 applic Documented by: Pantoprazole Sodium (Protonix Iv) 40 mg IVPUSH DAILY [facility] Last Admin: 10/23/19 09:32 Dose: 40 mg Documented by: Prednisone (Deltasone -) 5 mg PEG DAILY [facility] Last Admin: 10/23/19 09:44 Dose: 5 mg Documented by: Valproate Sodium (Depakene -) 750 mg GT TID [facility] Last Admin: 10/24/19 05:59 Dose: 750 mg Documented by: - Objective Vital Signs: Vital Signs Temperature 100.2 F H 10/24/19 06:00 Pulse Rate 75 10/24/19 11:39 Respiratory Rate 23 H 10/24/19 11:39 Blood Pressure 135/59 L 10/24/19 06:00 O2 Sat by Pulse Oximetry (%) 98 10/24/19 11:39 Constitutional: Yes: Well Nourished, No Distress, Calm Cardiovascular: Yes: Regular Rate and Rhythm Respiratory: Yes: Regular, CTA Bilaterally Gastrointestinal: Yes: Normal Bowel Sounds, Soft, Abdomen, Obese Genitourinary: Yes: Robbins Present Extremities: Yes: Other (generalized atrophy) Edema: No Peripheral Pulses WNL: Yes Integumentary: Yes: Pressure Ulcer (sacrum + BL heels) Neurological: Yes: Pre-Existing Deficit, Other (obtunded) Labs: CBC, BMP 10/24/19 08:00 10/24/19 08:00 INR, PTT INR 1.05 (0.83-1.09) 10/17/19 18:47 Problem List - Problems (1) Metabolic encephalopathy Assessment/Plan: -Cultures: Microbiology 10/17/19 18:40 Blood - Peripheral Venous Blood Culture - Final Proteus Mirabilus - Esbl Produ 10/18/19 18:10 Sputum - Endotrachea Suction/Ventilator Gram Stain - Final 10/18/19 18:10 Sputum - Endotrachea Suction/Ventilator Sputum Culture - Final Proteus Mirabilus - Esbl Produ Mr S Aureus 10/19/19 18:00 Blood - Peripheral Venous Blood Culture - Preliminary NO GROWTH OBTAINED AFTER 48 HOURS, INCUBATION TO CONTINUE FOR 3 DAYS. 10/19/19 17:50 Blood - Peripheral Venous Blood Culture - Preliminary NO GROWTH OBTAINED AFTER 48 HOURS, INCUBATION TO CONTINUE FOR 3 DAYS. 10/17/19 20:36 Urine - Urine - Catheterized Urine Culture - Final Proteus Mirabilus - Esbl Produ 10/18/19 23:00 Decubiti Gram Stain - Final 10/18/19 23:00 Decubiti Wound Culture - Final Proteus Species Lactose Fermenting Neg Bacilli Pseudomonas Species 10/17/19 18:40 Blood - Peripheral Venous Blood Culture - Final Proteus Mirabilus - Esbl Produ 10/18/19 03:30 Urine - Urine Robbins Urine Culture - Final Proteus Mirabilus - Esbl Produ 10/18/19 18:10 Stool Clostridioides difficile Antigen - Final 10/18/19 18:10 Stool Clostridioides difficile Toxin Assay - Final -ID consult -IV abx as per ID Problems reviewed: Yes Code(s): G93.41 - METABOLIC ENCEPHALOPATHY (2) VESTA (acute kidney injury) Assessment/Plan: -Resolved -Nephrology consult -Gentle IVF -Monitor trend Problems reviewed: Yes Code(s): N17.9 - ACUTE KIDNEY FAILURE, UNSPECIFIED (3) Acute hypercapnic respiratory failure Assessment/Plan: -Pulmonary consult -Mech vent -Failed weaning trial Problems reviewed: Yes Code(s): J96.02 - ACUTE RESPIRATORY FAILURE WITH HYPERCAPNIA (4) Diabetes Assessment/Plan: -BGM Q6H -A1c at 10.9 -ISS -Increase Levemir to 36 U BID -Endocrine consult Problems reviewed: Yes Code(s): E11.9 - TYPE 2 DIABETES MELLITUS WITHOUT COMPLICATIONS (5) Bacteremia Assessment/Plan: -ID consult -Continues to be Febrile -Monitor labs -IV abx -LA noted -Repeat BC negative Problems reviewed: Yes Code(s): R78.81 - BACTEREMIA (6) Pneumonia Assessment/Plan: -CXR LLL infiltrate -ID consult -Pulmonary consult -COVID 19 Negative Problems reviewed: Yes Code(s): J18.9 - PNEUMONIA, UNSPECIFIED ORGANISM Qualifiers: Pneumonia type: due to unspecified organism Laterality: unspecified laterality Lung location: unspecified part of lung Qualified Code(s): J18.9 - Pneumonia, unspecified organism (7) MRSA (methicillin resistant staph aureus) culture positive Problems reviewed: Yes Code(s): Z22.322 - CARRIER OR SUSPECTED CARRIER OF METHICILLIN RESIS STAPH (8) Anemia Assessment/Plan: -FANNY -Stool OB negative -B12, thyroid profile unremarkable -S/P 1 U PRBC -Monitor trend -Increase Ferrous sulfate to BID Problems reviewed: Yes Code(s): D64.9 - ANEMIA, UNSPECIFIED (9) Diarrhea Assessment/Plan: -Continue rectal tube -Cdiff negative -On Bacid -Add Bannitrol -AXR unremarkable -GI consult appreciated -Will change TF to Vital if diarrhea persists Problems reviewed: Yes Code(s): R19.7 - DIARRHEA, UNSPECIFIED (10) Seizures Assessment/Plan: -Twitching noted in RUE -Seen by Neurology -No changes in Keppra and Depakote -Exacerbated by acute infection? Problems reviewed: Yes Code(s): R56.9 - UNSPECIFIED CONVULSIONS Assessment/Plan See problem list Overall poor prognosis Palliative care on board Daughter wants everything done and LTACH placement when ready for dc
--- NOTE | 2019-10-24 11:57 | PN ---
Progress Note, Physician History of Present Illness: Pt seen and examined at bedside. NO great change is status. - Current Medication List Current Medications: Active Medications Acetaminophen (Tylenol Oral Solution -) 650 mg GT Q6H PRN PRN Reason: PAIN Last Admin: 10/23/19 17:45 Dose: 650 mg Documented by: Albuterol/Ipratropium (Duoneb -) 1 amp NEB RQID [facility] Last Admin: 10/24/19 11:20 Dose: 1 amp Documented by: Allopurinol (Zyloprim -) 100 mg PEG DAILY [facility] Last Admin: 10/23/19 09:36 Dose: 100 mg Documented by: Amino Acids (Prosource No Carb Liquid Pkt) 30 ml GT BID@0800,1730 [facility] Amlodipine Besylate (Norvasc -) 5 mg PEG DAILY [facility] Last Admin: 10/23/19 09:36 Dose: 5 mg Documented by: Ascorbic Acid (Vitamin C Oral Solution -) 500 mg GT DAILY [facility] Last Admin: 10/23/19 09:44 Dose: 500 mg Documented by: Atorvastatin Calcium (Lipitor -) 80 mg PEG HS [facility] Last Admin: 10/23/19 22:31 Dose: 80 mg Documented by: Banana Based Medical Food (Banatrol Plus Powder Packet) 1 packet PO TID [facility] Last Admin: 10/24/19 05:59 Dose: 1 packet Documented by: Cholecalciferol (Vitamin D3 -) 1,000 unit GT DAILY [facility] Last Admin: 10/23/19 09:36 Dose: 1,000 unit Documented by: Collagenase (Santyl -) 1 applic TP DAILY [facility]; Protocol Last Admin: 10/23/19 14:00 Dose: 1 applic Documented by: Cyanocobalamin (Vitamin B12 -) 1,000 mcg PEG DAILY [facility] Last Admin: 10/23/19 09:37 Dose: 1,000 mcg Documented by: Ferrous Sulfate (Feosol) 300 mg GT BID [facility] Last Admin: 10/23/19 22:31 Dose: 300 mg Documented by: Heparin Sodium (Porcine) (Heparin -) 5,000 unit SQ BID [facility] Last Admin: 10/23/19 22:31 Dose: 5,000 unit Documented by: Meropenem 1 gm/ Dextrose 100 mls @ 200 mls/hr IVPB Q8H-IV [facility] Last Admin: 10/24/19 02:14 Dose: 200 mls/hr Documented by: Vancomycin HCl 1,250 mg/ (Dextrose) 250 mls @ 166.667 mls/hr IVPB Q12H [facility]; Protocol Insulin Aspart (Novolog Vial Sliding Scale -) 1 vial SQ Q6HPO [facility]; Protocol Last Admin: 10/24/19 06:00 Dose: 6 units Documented by: Insulin Detemir (Levemir Vial) 32 units SQ 0700,2200 [facility] Last Admin: 10/24/19 06:00 Dose: 32 units Documented by: Lactobacillus Acidophilus (Bacid -) 1 tab GT DAILY [facility] Last Admin: 10/23/19 09:37 Dose: 1 tab Documented by: Levetiracetam (Keppra Oral Solution -) 1,000 mg GT BID [facility] Last Admin: 10/23/19 22:31 Dose: 1,000 mg Documented by: Lisinopril (Prinivil) 5 mg PO DAILY [facility] Last Admin: 10/23/19 18:00 Dose: 5 mg Documented by: Multivitamins/Minerals (Certavite-Antioxidant Liquid) 15 ml GT DAILY [facility] Last Admin: 10/23/19 09:44 Dose: 15 ml Documented by: Nystatin (Nystop Powder -) 1 applic TP BID [facility] Last Admin: 10/23/19 22:32 Dose: 1 applic Documented by: Pantoprazole Sodium (Protonix Iv) 40 mg IVPUSH DAILY [facility] Last Admin: 10/23/19 09:32 Dose: 40 mg Documented by: Prednisone (Deltasone -) 5 mg PEG DAILY [facility] Last Admin: 10/23/19 09:44 Dose: 5 mg Documented by: Valproate Sodium (Depakene -) 750 mg GT TID [facility] Last Admin: 10/24/19 05:59 Dose: 750 mg Documented by: - Objective Vital Signs: Vital Signs Temperature 100.2 F H 10/24/19 06:00 Pulse Rate 75 10/24/19 11:39 Respiratory Rate 23 H 10/24/19 11:39 Blood Pressure 135/59 L 10/24/19 06:00 O2 Sat by Pulse Oximetry (%) 98 10/24/19 11:39 Constitutional: Yes: Calm Cardiovascular: Yes: S1, S2 Respiratory: Yes: Mechanically Ventilated Gastrointestinal: Yes: Soft, Abdomen, Obese Genitourinary: Yes: Robbins Present Musculoskeletal: Yes: Muscle Weakness Edema: No Neurological: Yes: Lethargy Labs: CBC, BMP 10/24/19 08:00 10/24/19 08:00 INR, PTT INR 1.05 (0.83-1.09) 10/17/19 18:47 Assessment/Plan Current Medications Generic Name Dose Route Start Last Admin Trade Name Freq PRN Reason Stop Dose Admin Acetaminophen 650 mg 10/18/19 12:21 10/23/19 17:45 Tylenol Oral Solution - GT 650 mg Q6H PRN Administration PAIN Albuterol/Ipratropium 1 amp 10/18/19 08:00 10/24/19 11:20 Duoneb - NEB 1 amp RQID [facility] Administration Allopurinol 100 mg 10/18/19 10:00 10/23/19 09:36 Zyloprim - PEG 100 mg DAILY [facility] Administration Amino Acids 30 ml 10/24/19 08:00 Prosource No Carb Liquid Pkt GT BID@0800,1730 [facility] Amlodipine Besylate 5 mg 10/18/19 10:00 10/23/19 09:36 Norvasc - PEG 5 mg DAILY [facility] Administration Ascorbic Acid 500 mg 10/18/19 13:00 10/23/19 09:44 Vitamin C Oral Solution - GT 500 mg DAILY [facility] Administration Atorvastatin Calcium 80 mg 10/18/19 22:00 10/23/19 22:31 Lipitor - PEG 80 mg HS [facility] Administration Banana Based Medical Food 1 packet 10/22/19 14:00 10/24/19 05:59 Banatrol Plus Powder Packet PO 1 packet TID [facility] Administration Cholecalciferol 1,000 unit 10/20/19 07:36 10/23/19 09:36 Vitamin D3 - GT 1,000 unit DAILY [facility] Administration Collagenase 1 applic 10/18/19 13:00 10/23/19 14:00 Santyl - TP 1 applic DAILY [facility] Administration Protocol Cyanocobalamin 1,000 mcg 10/20/19 07:36 10/23/19 09:37 Vitamin B12 - PEG 1,000 mcg DAILY [facility] Administration Ferrous Sulfate 300 mg 10/22/19 22:00 10/23/19 22:31 Feosol GT 300 mg BID [facility] Administration Heparin Sodium (Porcine) 5,000 unit 10/18/19 22:15 10/23/19 22:31 Heparin - SQ 5,000 unit BID [facility] Administration Meropenem 1 gm/ Dextrose 100 mls @ 200 mls/hr 10/20/19 18:00 10/24/19 02:14 IVPB 200 mls/hr Q8H-IV [facility] Administration Vancomycin HCl 1,250 mg/ 250 mls @ 166.667 mls/hr 10/24/19 16:00 Dextrose IVPB Q12H [facility] Protocol Insulin Aspart 1 vial 10/21/19 01:05 10/24/19 06:00 Novolog Vial Sliding Scale - SQ 6 units Q6HPO [facility] Administration Protocol Insulin Detemir 32 units 10/23/19 22:00 10/24/19 06:00 Levemir Vial SQ 32 units 0700,2200 [facility] Administration Lactobacillus Acidophilus 1 tab 10/20/19 17:00 10/23/19 09:37 Bacid - GT 1 tab DAILY [facility] Administration Levetiracetam 1,000 mg 10/18/19 12:30 10/23/19 22:31 Keppra Oral Solution - GT 1,000 mg BID [facility] Administration Lisinopril 5 mg 10/23/19 16:00 10/23/19 18:00 Prinivil PO 5 mg DAILY [facility] Administration Multivitamins/Minerals 15 ml 10/18/19 12:30 10/23/19 09:44 Certavite-Antioxidant Liquid GT 15 ml DAILY [facility] Administration Nystatin 1 applic 10/18/19 12:30 10/23/19 22:32 Nystop Powder - TP 1 applic BID [facility] Administration Pantoprazole Sodium 40 mg 10/19/19 10:00 10/23/19 09:32 Protonix Iv IVPUSH 40 mg DAILY [facility] Administration Prednisone 5 mg 10/18/19 10:00 10/23/19 09:44 Deltasone - PEG 5 mg DAILY [facility] Administration Valproate Sodium 750 mg 10/18/19 14:00 10/24/19 05:59 Depakene - GT 750 mg TID [facility] Administration Impression 1. VESTA 2. DM 3. hypernatremia 4. resp failure 5. cva 6. copd 7. htn Plan - renal function improved - pulm input appreciated, will restart gentle hydration - repeat labs in am - vent support - cont to monitor lytes - corrected sodium is normal
--- NOTE | 2019-10-24 11:58 | PN ---
Progress Note, Physician History of Present Illness: continues to spike low grade fever - Current Medication List Current Medications: Active Medications Acetaminophen (Tylenol Oral Solution -) 650 mg GT Q6H PRN PRN Reason: PAIN Last Admin: 10/23/19 17:45 Dose: 650 mg Documented by: Albuterol/Ipratropium (Duoneb -) 1 amp NEB RQID [facility] Last Admin: 10/24/19 11:20 Dose: 1 amp Documented by: Allopurinol (Zyloprim -) 100 mg PEG DAILY [facility] Last Admin: 10/23/19 09:36 Dose: 100 mg Documented by: Amino Acids (Prosource No Carb Liquid Pkt) 30 ml GT BID@0800,1730 [facility] Amlodipine Besylate (Norvasc -) 5 mg PEG DAILY [facility] Last Admin: 10/23/19 09:36 Dose: 5 mg Documented by: Ascorbic Acid (Vitamin C Oral Solution -) 500 mg GT DAILY [facility] Last Admin: 10/23/19 09:44 Dose: 500 mg Documented by: Atorvastatin Calcium (Lipitor -) 80 mg PEG HS [facility] Last Admin: 10/23/19 22:31 Dose: 80 mg Documented by: Banana Based Medical Food (Banatrol Plus Powder Packet) 1 packet PO TID [facility] Last Admin: 10/24/19 05:59 Dose: 1 packet Documented by: Cholecalciferol (Vitamin D3 -) 1,000 unit GT DAILY [facility] Last Admin: 10/23/19 09:36 Dose: 1,000 unit Documented by: Collagenase (Santyl -) 1 applic TP DAILY [facility]; Protocol Last Admin: 10/23/19 14:00 Dose: 1 applic Documented by: Cyanocobalamin (Vitamin B12 -) 1,000 mcg PEG DAILY [facility] Last Admin: 10/23/19 09:37 Dose: 1,000 mcg Documented by: Ferrous Sulfate (Feosol) 300 mg GT BID [facility] Last Admin: 10/23/19 22:31 Dose: 300 mg Documented by: Heparin Sodium (Porcine) (Heparin -) 5,000 unit SQ BID [facility] Last Admin: 10/23/19 22:31 Dose: 5,000 unit Documented by: Meropenem 1 gm/ Dextrose 100 mls @ 200 mls/hr IVPB Q8H-IV [facility] Last Admin: 10/24/19 02:14 Dose: 200 mls/hr Documented by: Vancomycin HCl 1,250 mg/ (Dextrose) 250 mls @ 166.667 mls/hr IVPB Q12H [facility]; Protocol Insulin Aspart (Novolog Vial Sliding Scale -) 1 vial SQ Q6HPO [facility]; Protocol Last Admin: 10/24/19 06:00 Dose: 6 units Documented by: Insulin Detemir (Levemir Vial) 32 units SQ 0700,2200 [facility] Last Admin: 10/24/19 06:00 Dose: 32 units Documented by: Lactobacillus Acidophilus (Bacid -) 1 tab GT DAILY [facility] Last Admin: 10/23/19 09:37 Dose: 1 tab Documented by: Levetiracetam (Keppra Oral Solution -) 1,000 mg GT BID [facility] Last Admin: 10/23/19 22:31 Dose: 1,000 mg Documented by: Lisinopril (Prinivil) 5 mg PO DAILY [facility] Last Admin: 10/23/19 18:00 Dose: 5 mg Documented by: Multivitamins/Minerals (Certavite-Antioxidant Liquid) 15 ml GT DAILY [facility] Last Admin: 10/23/19 09:44 Dose: 15 ml Documented by: Nystatin (Nystop Powder -) 1 applic TP BID [facility] Last Admin: 10/23/19 22:32 Dose: 1 applic Documented by: Pantoprazole Sodium (Protonix Iv) 40 mg IVPUSH DAILY [facility] Last Admin: 10/23/19 09:32 Dose: 40 mg Documented by: Prednisone (Deltasone -) 5 mg PEG DAILY [facility] Last Admin: 10/23/19 09:44 Dose: 5 mg Documented by: Valproate Sodium (Depakene -) 750 mg GT TID [facility] Last Admin: 10/24/19 05:59 Dose: 750 mg Documented by: - Objective Vital Signs: Vital Signs Temperature 100.2 F H 10/24/19 06:00 Pulse Rate 75 10/24/19 11:39 Respiratory Rate 23 H 10/24/19 11:39 Blood Pressure 135/59 L 10/24/19 06:00 O2 Sat by Pulse Oximetry (%) 98 10/24/19 11:39 Constitutional: Yes: No Distress, Calm Cardiovascular: Yes: S1, S2 Respiratory: Yes: Mechanically Ventilated, Poor Air Entry, Other Gastrointestinal: Yes: Normal Bowel Sounds, Soft Musculoskeletal: Yes: WNL Extremities: Yes: WNL Neurological: Yes: Alert Psychiatric: Yes: Alert Labs: CBC, BMP 10/24/19 08:00 10/24/19 08:00 INR, PTT INR 1.05 (0.83-1.09) 10/17/19 18:47 Assessment/Plan Problem List - Problems (1) Gram-negative bacteremia Code(s): R78.81 - BACTEREMIA (2) History of CVA (cerebrovascular accident) Code(s): Z86.73 - PRSNL HX OF TIA (TIA), AND CEREB INFRC W/O RESID DEFICITS (3) CAD (coronary artery disease) Code(s): I25.10 - ATHSCL HEART DISEASE OF [place] CORONARY ARTERY W/O ANG PCTRS (4) Diarrhea Code(s): R19.7 - DIARRHEA, UNSPECIFIED (5) VESTA (acute kidney injury) Code(s): N17.9 - ACUTE KIDNEY FAILURE, UNSPECIFIED (6) Pneumonia Code(s): J18.9 - PNEUMONIA, UNSPECIFIED ORGANISM Qualifiers: Pneumonia type: due to unspecified organism Laterality: unspecified laterality Lung location: unspecified part of lung Qualified Code(s): J18.9 - Pneumonia, unspecified organism (7) Obese Code(s): E66.9 - OBESITY, UNSPECIFIED Qualifiers: Body mass index: BMI 60.0-69.9 (8) UTI (urinary tract infection) Code(s): N39.0 - URINARY TRACT INFECTION, SITE NOT SPECIFIED Qualifiers: Urinary tract infection type: site unspecified Hematuria presence: with hematuria Qualified Code(s): N39.0 - Urinary tract infection, site not specified; R31.9 - Hematuria, unspecified (9) Diabetes Code(s): E11.9 - TYPE 2 DIABETES MELLITUS WITHOUT COMPLICATIONS (10) HTN (hypertension) Code(s): I10 - ESSENTIAL (PRIMARY) HYPERTENSION (11) Hyperlipidemia Code(s): E78.5 - HYPERLIPIDEMIA, UNSPECIFIED (12) S/P CABG (coronary artery bypass graft) Code(s): Z95.1 - PRESENCE OF AORTOCORONARY BYPASS GRAFT (13) COPD (chronic obstructive pulmonary disease) Code(s): J44.9 - CHRONIC OBSTRUCTIVE PULMONARY DISEASE, UNSPECIFIED (14) Decubitus ulcer, stage 4 with infection Code(s): L89.94 - PRESSURE ULCER OF UNSPECIFIED SITE, STAGE 4; L08.9 - LOCAL INFECTION OF THE SKIN AND SUBCUTANEOUS TISSUE, UNSP (15) Lactic acid increased Code(s): E87.2 - ACIDOSIS (16) Metabolic encephalopathy Code(s): G93.41 - METABOLIC ENCEPHALOPATHY (17) Seizures Code(s): R56.9 - UNSPECIFIED CONVULSIONS (18) ESBL (extended spectrum beta-lactamase) producing bacteria infection Code(s): A49.9 - BACTERIAL INFECTION, UNSPECIFIED; Z16.12 - EXTENDED SPECTRUM BETA LACTAMASE (ESBL) RESISTANCE Assessment/Plan Sepsis Gram negative UTI with bacteremia ESBL + bacterial infection HCAP vs VAP Diarrhea Polymicrobial Sacral St IV DU infection/ likely OM Seizures Chronic respiratory failure s/p trach/MV Acute kidney injury Uncontrolled DM Morbid obesity Hx of CVA s/p thrombectomy CAD s/p CABG x 2 COPD Diastolic CHF HTN HLD plan would continue current mgmt wound care will increase the dose of vanco suctioning if continues o spike ct of chest
--- NOTE | 2019-10-24 12:12 | PN ---
Progress Note, Physician History of Present Illness: 69 year old female with past medical history of diastolic congestive heart failure, coronary artery disease status post CABG x2, moderate-severe aortic regurgitation, moderate pulmonary HTN, ?hyperparathyroidism, obesity,COPD, IDDM, HTN, HLD, CVA s/p thrombectomy 09/2019 at [facility] with respiratory failure s/p tracheostomy and PEG tube who was sent from [facility] for hyperglycemia and "de hydration". Per [place], blood sugar was in the 400's and BUN 111/creatinine 1.6. and had a normal kidney function in the past. At baseline patient is slow to respond and keeps her eyes closed . - Current Medication List Current Medications: Active Medications Acetaminophen (Tylenol Oral Solution -) 650 mg GT Q6H PRN PRN Reason: PAIN Last Admin: 10/23/19 17:45 Dose: 650 mg Documented by: Albuterol/Ipratropium (Duoneb -) 1 amp NEB RQID [facility] Last Admin: 10/24/19 11:20 Dose: 1 amp Documented by: Allopurinol (Zyloprim -) 100 mg PEG DAILY [facility] Last Admin: 10/23/19 09:36 Dose: 100 mg Documented by: Amino Acids (Prosource No Carb Liquid Pkt) 30 ml GT BID@0800,1730 [facility] Amlodipine Besylate (Norvasc -) 5 mg PEG DAILY [facility] Last Admin: 10/23/19 09:36 Dose: 5 mg Documented by: Ascorbic Acid (Vitamin C Oral Solution -) 500 mg GT DAILY [facility] Last Admin: 10/23/19 09:44 Dose: 500 mg Documented by: Atorvastatin Calcium (Lipitor -) 80 mg PEG HS [facility] Last Admin: 10/23/19 22:31 Dose: 80 mg Documented by: Banana Based Medical Food (Banatrol Plus Powder Packet) 1 packet PO TID [facility] Last Admin: 10/24/19 05:59 Dose: 1 packet Documented by: Cholecalciferol (Vitamin D3 -) 1,000 unit GT DAILY [facility] Last Admin: 10/23/19 09:36 Dose: 1,000 unit Documented by: Collagenase (Santyl -) 1 applic TP DAILY [facility]; Protocol Last Admin: 10/23/19 14:00 Dose: 1 applic Documented by: Cyanocobalamin (Vitamin B12 -) 1,000 mcg PEG DAILY [facility] Last Admin: 10/23/19 09:37 Dose: 1,000 mcg Documented by: Ferrous Sulfate (Feosol) 300 mg GT BID [facility] Last Admin: 10/23/19 22:31 Dose: 300 mg Documented by: Heparin Sodium (Porcine) (Heparin -) 5,000 unit SQ BID [facility] Last Admin: 10/23/19 22:31 Dose: 5,000 unit Documented by: Meropenem 1 gm/ Dextrose 100 mls @ 200 mls/hr IVPB Q8H-IV [facility] Last Admin: 10/24/19 02:14 Dose: 200 mls/hr Documented by: Vancomycin HCl 1,250 mg/ (Dextrose) 250 mls @ 166.667 mls/hr IVPB Q12H [facility]; Protocol Sodium Chloride (1/2 Normal Saline) 1,000 mls @ 35 mls/hr IV ASDIR [facility] Insulin Aspart (Novolog Vial Sliding Scale -) 1 vial SQ Q6HPO [facility]; Protocol Last Admin: 10/24/19 06:00 Dose: 6 units Documented by: Insulin Detemir (Levemir Vial) 32 units SQ 0700,2200 [facility] Last Admin: 10/24/19 06:00 Dose: 32 units Documented by: Lactobacillus Acidophilus (Bacid -) 1 tab GT DAILY [facility] Last Admin: 10/23/19 09:37 Dose: 1 tab Documented by: Levetiracetam (Keppra Oral Solution -) 1,000 mg GT BID [facility] Last Admin: 10/23/19 22:31 Dose: 1,000 mg Documented by: Lisinopril (Prinivil) 5 mg PO DAILY [facility] Last Admin: 10/23/19 18:00 Dose: 5 mg Documented by: Multivitamins/Minerals (Certavite-Antioxidant Liquid) 15 ml GT DAILY [facility] Last Admin: 10/23/19 09:44 Dose: 15 ml Documented by: Nystatin (Nystop Powder -) 1 applic TP BID [facility] Last Admin: 10/23/19 22:32 Dose: 1 applic Documented by: Pantoprazole Sodium (Protonix Iv) 40 mg IVPUSH DAILY [facility] Last Admin: 10/23/19 09:32 Dose: 40 mg Documented by: Prednisone (Deltasone -) 5 mg PEG DAILY [facility] Last Admin: 10/23/19 09:44 Dose: 5 mg Documented by: Valproate Sodium (Depakene -) 750 mg GT TID [facility] Last Admin: 10/24/19 05:59 Dose: 750 mg Documented by: - Objective Vital Signs: Vital Signs Temperature 100.2 F H 10/24/19 06:00 Pulse Rate 75 10/24/19 11:39 Respiratory Rate 23 H 10/24/19 11:39 Blood Pressure 135/59 L 10/24/19 06:00 O2 Sat by Pulse Oximetry (%) 98 10/24/19 11:39 Eyes: Yes: WNL, Conjunctiva Clear, EOM Intact HENT: Yes: WNL, Atraumatic, Normocephalic Neck: Yes: WNL, Supple, Trachea Midline Cardiovascular: Yes: WNL, Regular Rate and Rhythm Respiratory: Yes: Diminished, Mechanically Ventilated, Rhonchi Gastrointestinal: Yes: WNL, Normal Bowel Sounds Genitourinary: Yes: WNL Musculoskeletal: Yes: WNL Extremities: Yes: WNL Edema: No Integumentary: Yes: WNL Neurological: Yes: WNL, Alert, Oriented ...Motor Strength: WNL Psychiatric: Yes: WNL Labs: CBC, BMP 10/24/19 08:00 10/24/19 08:00 INR, PTT INR 1.05 (0.83-1.09) 10/17/19 18:47 Problem List - Problems (1) VESTA (acute kidney injury) Code(s): N17.9 - ACUTE KIDNEY FAILURE, UNSPECIFIED (2) Anemia Code(s): D64.9 - ANEMIA, UNSPECIFIED (3) Bacteremia Code(s): R78.81 - BACTEREMIA (4) CAD (coronary artery disease) Code(s): I25.10 - ATHSCL HEART DISEASE OF [place] CORONARY ARTERY W/O ANG PCTRS (5) COPD (chronic obstructive pulmonary disease) Code(s): J44.9 - CHRONIC OBSTRUCTIVE PULMONARY DISEASE, UNSPECIFIED (6) Chronic respiratory failure Code(s): J96.10 - CHRONIC RESPIRATORY FAILURE, UNSP W HYPOXIA OR HYPERCAPNIA (7) Decubitus ulcer, stage 4 with infection Code(s): L89.94 - PRESSURE ULCER OF UNSPECIFIED SITE, STAGE 4; L08.9 - LOCAL INFECTION OF THE SKIN AND SUBCUTANEOUS TISSUE, UNSP (8) Diarrhea Code(s): R19.7 - DIARRHEA, UNSPECIFIED (9) ESBL (extended spectrum beta-lactamase) producing bacteria infection Code(s): A49.9 - BACTERIAL INFECTION, UNSPECIFIED; Z16.12 - EXTENDED SPECTRUM BETA LACTAMASE (ESBL) RESISTANCE (10) Gram-negative bacteremia Code(s): R78.81 - BACTEREMIA (11) High glucose Code(s): R73.09 - OTHER ABNORMAL GLUCOSE (12) History of CVA (cerebrovascular accident) Code(s): Z86.73 - PRSNL HX OF TIA (TIA), AND CEREB INFRC W/O RESID DEFICITS (13) Lactic acid increased Code(s): E87.2 - ACIDOSIS (14) MRSA (methicillin resistant staph aureus) culture positive Code(s): Z22.322 - CARRIER OR SUSPECTED CARRIER OF METHICILLIN RESIS STAPH (15) Metabolic encephalopathy Code(s): G93.41 - METABOLIC ENCEPHALOPATHY (16) Pneumonia Code(s): J18.9 - PNEUMONIA, UNSPECIFIED ORGANISM Qualifiers: Pneumonia type: due to unspecified organism Laterality: unspecified laterality Lung location: unspecified part of lung Qualified Code(s): J18.9 - Pneumonia, unspecified organism (17) Seizures Code(s): R56.9 - UNSPECIFIED CONVULSIONS (18) Sepsis Code(s): A41.9 - SEPSIS, UNSPECIFIED ORGANISM (19) ACS (acute coronary syndrome) Code(s): I24.9 - ACUTE ISCHEMIC HEART DISEASE, UNSPECIFIED (20) Acute hypercapnic respiratory failure Code(s): J96.02 - ACUTE RESPIRATORY FAILURE WITH HYPERCAPNIA (21) Acute pain of left foot Code(s): M79.672 - PAIN IN LEFT FOOT (22) Bursitis of hip Code(s): M70.70 - OTHER BURSITIS OF HIP, UNSPECIFIED HIP (23) CHF exacerbation Code(s): I50.9 - HEART FAILURE, UNSPECIFIED Qualifiers: Heart failure type: unspecified Qualified Code(s): I50.9 - Heart failure, unspecified (24) COPD exacerbation Code(s): J44.1 - CHRONIC OBSTRUCTIVE PULMONARY DISEASE W (ACUTE) EXACERBATION (25) Cellulitis Code(s): L03.90 - CELLULITIS, UNSPECIFIED Qualifiers: Site of cellulitis: extremity Site of cellulitis of extremity: toe (26) Chest pain Code(s): R07.9 - CHEST PAIN, UNSPECIFIED (27) Depression Code(s): F32.9 - MAJOR DEPRESSIVE DISORDER, SINGLE EPISODE, UNSPECIFIED (28) Dysphagia Code(s): R13.10 - DYSPHAGIA, UNSPECIFIED Qualifiers: Dysphagia type: unspecified Qualified Code(s): R13.10 - Dysphagia, unspecified (29) Fall Code(s): W19.XXXA - UNSPECIFIED FALL, INITIAL ENCOUNTER Qualifiers: Encounter type: initial encounter Qualified Code(s): W19.XXXA - Unspecified fall, initial encounter (30) Foot fracture, left Code(s): S92.902A - UNSP FRACTURE OF LEFT FOOT, INIT ENCNTR FOR CLOSED FRACTURE Qualifiers: Encounter type: initial encounter Fracture type: closed Qualified Code(s): S92.902A - Unspecified fracture of left foot, initial encounter for closed fracture (31) Gout Code(s): M10.9 - GOUT, UNSPECIFIED Qualifiers: Gout site: toe Gout etiology: idiopathic Chronicity: acute Laterality: left Qualified Code(s): M10.072 - Idiopathic gout, left ankle and foot (32) Head trauma Code(s): S09.90XA - UNSPECIFIED INJURY OF HEAD, INITIAL ENCOUNTER Qualifiers: Encounter type: initial encounter Qualified Code(s): S09.90XA - Unspecified injury of head, initial encounter (33) Hearing loss Code(s): H91.90 - UNSPECIFIED HEARING LOSS, UNSPECIFIED EAR Qualifiers: Hearing loss type: presbycusis Laterality: bilateral Qualified Code(s): H91.13 - Presbycusis, bilateral (34) Hypomagnesemia Code(s): E83.42 - HYPOMAGNESEMIA (35) Need for tetanus booster Code(s): Z23 - ENCOUNTER FOR IMMUNIZATION (36) Obese Code(s): E66.9 - OBESITY, UNSPECIFIED Qualifiers: Body mass index: BMI 60.0-69.9 (37) Right calf pain Code(s): M79.661 - PAIN IN RIGHT LOWER LEG (38) SOB (shortness of breath) Code(s): R06.02 - SHORTNESS OF BREATH (39) Sedentary lifestyle Code(s): Z91.89 - OTH PERSONAL RISK FACTORS, NOT ELSEWHERE CLASSIFIED (40) Sleep apnea Code(s): G47.30 - SLEEP APNEA, UNSPECIFIED (41) Stroke Code(s): I63.9 - CEREBRAL INFARCTION, UNSPECIFIED Qualifiers: CVA mechanism: thrombosis Precerebral and cerebral artery: middle cerebral artery Laterality of affected vessel: right Qualified Code(s): I63.311 - Cerebral infarction due to thrombosis of right middle cerebral artery (42) Throat pain Code(s): R07.0 - PAIN IN THROAT (43) Tooth pain Code(s): K08.8 - OTHER SPECIFIED DISORDERS OF TEETH AND SUPPOR * DO NOT USE * (44) UTI (urinary tract infection) Code(s): N39.0 - URINARY TRACT INFECTION, SITE NOT SPECIFIED Qualifiers: Urinary tract infection type: site unspecified Hematuria presence: with hematuria Qualified Code(s): N39.0 - Urinary tract infection, site not specified; R31.9 - Hematuria, unspecified (45) Weakness Code(s): R53.1 - WEAKNESS (46) Arteriosclerotic heart disease (ASHD) Code(s): I25.10 - ATHSCL HEART DISEASE OF [place] CORONARY ARTERY W/O ANG PCTRS (47) DVT prophylaxis Code(s): [id number] - (48) Diabetes Code(s): E11.9 - TYPE 2 DIABETES MELLITUS WITHOUT COMPLICATIONS (49) HTN (hypertension) Code(s): I10 - ESSENTIAL (PRIMARY) HYPERTENSION (50) Hyperlipidemia Code(s): E78.5 - HYPERLIPIDEMIA, UNSPECIFIED (51) S/P CABG (coronary artery bypass graft) Code(s): Z95.1 - PRESENCE OF AORTOCORONARY BYPASS GRAFT Assessment/Plan Plan: On amllodipine for HTN; start lisinopril 5 mg daily (HTN; low-normal systolic/diastolic CHF; DM). ABX resp support DVT plx IVF F/u BUn/Cr, electrolytes, daily weight, Is and Os.
[2019-10-24] MEDS: AMINO ACIDS/PROTEIN HYDROLYS 30 ML LIQUID.PKT GT SCH ×2 (12:25→18:21)
[2019-10-24] MEDS: ALLOPURINOL 100 MG TABLET (FP) PEG SCH (12:26)
[2019-10-24] MEDS: amLODIPine BESYLATE 5 MG TABLET (FP) PEG SCH (12:26)
[2019-10-24] MEDS: SODIUM CHLORIDE 0.45% 1,000 ML IV SCH (12:27)
[2019-10-24] MEDS: FERROUS SO4 300 MG/5 ML ORAL SOLN UNIT DOSE CUPS GT SCH ×2 (12:27→22:09)
[2019-10-24] MEDS: CHOLECALCIFEROL (VIT D3) 1,000 UNIT (25 MCG) TABLET GT SCH (12:28)
[2019-10-24] MEDS: LISINOPRIL 5 MG TABLET (FP) PO SCH (12:28)
[2019-10-24] MEDS: LACTOBACILLUS ACIDOPHILUS 1 TABLET GT SCH (12:29)
[2019-10-24] MEDS: ASCORBIC ACID 500 MG/5 ML UNIT DOSE CUP GT SCH (12:29)
[2019-10-24] MEDS: CYANOCOBALAMIN 1,000 MCG TABLET (FP) PEG SCH (12:29)
[2019-10-24] MEDS: NYSTATIN POWDER 100,000 UNITS/GM - 15 GM TOPICAL POWDER TP SCH ×2 (12:30→22:10)
[2019-10-24] MEDS: levETIRAcetam 500 MG/5 ML ORAL SOLUTION (UNIT-DOSE CUPS) GT SCH ×2 (12:30→22:09)
[2019-10-24] MEDS: predniSONE 5 MG TABLET (UD) PEG SCH (12:30)
[2019-10-24] MEDS: MULTIVIT-MINERALS ORAL LIQUID GT SCH (12:31)
[2019-10-24] MEDS: PANTOPRAZOLE SODIUM 40 MG VIAL IVPUSH SCH (12:32)
[2019-10-24] MEDS: HEPARIN NA (PORCINE) 5,000 UNITS/ML 1ML VIAL SQ SCH ×2 (12:34→22:09)
[2019-10-24] MEDS: ACETAMINOPHEN 650 MG/20.3 ML ORAL SOLUTION (CUPS) GT PRN (14:39)
[2019-10-24] MEDS: COLLAGENASE CLOSTRIDIUM HIST. 30 GRAMS TUBE TP SCH (14:39)
[2019-10-24] MEDS: VANCOMYCIN 1,250 MG in DEXTROSE 5%-WATER - 250 ML IVPB SCH (15:38)
--- NOTE | 2019-10-24 21:10 | PN ---
Progress Note (short form) - Note Progress Note: weak lethargic hyperglycmia Current Active Problems VESTA (acute kidney injury) (Acute) Abnormal liver function tests (Acute) Anemia (Acute) Bacteremia (Acute) CAD (coronary artery disease) (Acute) COPD (chronic obstructive pulmonary disease) (Acute) Chronic respiratory failure (Acute) Decubitus ulcer, stage 4 with infection (Acute) Diarrhea (Acute) ESBL (extended spectrum beta-lactamase) producing bacteria infection (Acute) Fatty liver (Acute) Gallstones (Acute) Gram-negative bacteremia (Acute) High glucose (Acute) History of CVA (cerebrovascular accident) (Acute) Lactic acid increased (Acute) MRSA (methicillin resistant staph aureus) culture positive (Acute) Metabolic encephalopathy (Acute) Pneumonia (Acute) Seizures (Acute) Sepsis (Acute) Abnormal Lab Results 10/21/19 10/23/19 10/24/19 12:44 06:00 08:00 WBC 13.7 H Hgb 9.0 L Hct 28.5 L MCV 73.6 L MCH 23.2 L MCHC 31.6 L RDW 20.8 H Absolute Neuts (auto) 9.5 H Myelocytes % (Man) 3 H Nucleated RBC % 3 H Sodium 135 L Chloride Carbon Dioxide Anion Gap 7 L Creatinine 0.5 L Random Glucose 358 H AST 70 H ALT Alkaline Phosphatase 139 H Total Protein 6.3 L Albumin 1.5 L Triglycerides 299 H HDL Cholesterol 32 L Crossmatch See Detail 10/24/19 08:00 WBC Hgb Hct MCV MCH MCHC RDW Absolute Neuts (auto) Myelocytes % (Man) Nucleated RBC % Sodium 135 L Chloride 96 L Carbon Dioxide 33 H Anion Gap 5 L Creatinine 0.4 L Random Glucose 280 H AST 68 H ALT 62 H Alkaline Phosphatase 130 H Total Protein 5.6 L Albumin 1.4 L Triglycerides HDL Cholesterol Crossmatch Laboratory Tests 10/24/19 10/24/19 10/24/19 05:55 08:00 12:52 Sodium 135 L Potassium 4.5 Chloride 96 L Carbon Dioxide 33 H Anion Gap 5 L BUN 15.3 Creatinine 0.4 L POC Glucometer 283 239 Random Glucose 280 H 10/24/19 18:19 Sodium Potassium Chloride Carbon Dioxide Anion Gap BUN Creatinine POC Glucometer 302 Random Glucose plan: feed ing tolerated peg levemir 40units bid bgm q6hr coverage insulin doses Problem List - Problems (1) VESTA (acute kidney injury) Code(s): N17.9 - ACUTE KIDNEY FAILURE, UNSPECIFIED (2) CAD (coronary artery disease) Code(s): I25.10 - ATHSCL HEART DISEASE OF [place] CORONARY ARTERY W/O ANG PCTRS (3) COPD (chronic obstructive pulmonary disease) Code(s): J44.9 - CHRONIC OBSTRUCTIVE PULMONARY DISEASE, UNSPECIFIED (4) Diarrhea Code(s): R19.7 - DIARRHEA, UNSPECIFIED (5) Gram-negative bacteremia Code(s): R78.81 - BACTEREMIA (6) History of CVA (cerebrovascular accident) Code(s): Z86.73 - PRSNL HX OF TIA (TIA), AND CEREB INFRC W/O RESID DEFICITS
[2019-10-24] MEDS ORDERED: INSULIN (LEVEMIR) 100 UNITS/ML UNITS SQ SCH (22:00)
[2019-10-24] MEDS: ATORVASTATIN CA 80 MG TABLET (FP) PEG SCH (22:09)
[2019-10-25] MEDS: INSULIN SLIDING SCALE (NOVOLOG) 1 VIAL SQ SCH ×5 (00:42→23:55)
[2019-10-25] MEDS ORDERED: PT OWN MED DRAWER 7, Y5N ONE ×6 (01:46→21:24)
[2019-10-25] MEDS ORDERED: MEROPENEM 1 GM VIAL (RESTRICTED TO ID) IVPB ONE ×3 (02:25→18:05)
[2019-10-25] MEDS ORDERED: DEXTROSE 5%-WATER 100 ML IVPB ONE ×3 (02:26→18:05)
[2019-10-25] MEDS: MEROPENEM 1 GM in DEXTROSE 5%-WATER 100 ML IVPB SCH ×3 (02:30→18:23)
[2019-10-25] MEDS: VANCOMYCIN 1,250 MG in DEXTROSE 5%-WATER - 250 ML IVPB SCH ×2 (03:50→16:22)
[2019-10-25] MEDS: BANATROL PLUS POWDER PACKET PO SCH ×3 (06:02→21:30)
[2019-10-25] MEDS: VALPROATE SODIUM 250 MG/5 ML UNIT DOSE CUP GT SCH ×3 (06:02→21:29)
[2019-10-25] MEDS: INSULIN (LEVEMIR) 100 UNITS/ML UNITS SQ SCH ×2 (06:03→23:36)
[2019-10-25] MEDS: ALBUTEROL SO4 2.5/IPRATROPIUM 0.5 INH SOL 3 ML VIAL.NEB. NEB SCH ×4 (08:15→20:32)
[2019-10-25 08:59] LABS: BASO % 0.2 % (0-2.0); EOS % 0.9 % (0-4.5); HEMATOCRIT 29.8 % (32.4-45.2); HEMOGLOBIN 9.2 GM/dL (10.7-15.3); LYMPH % 23.1 % (8-40); MCH 22.7 pg (25.7-33.7); MCHC 30.9 g/dl (32.0-36.0); MEAN CELL VOLUME 73.4 fl (80-96); MEAN PLT VOLUME 8.6 fl (7.5-11.1); MONO % 8.9 % (3.8-10.2); NEUT % 66.9 % (42.8-82.8); PLATELET COUNT 373 K/MM3 (134-434); RBC 4.06 M/mm3 (3.60-5.2); RDW 20.5 % (11.6-15.6); WHITE BLOOD COUNT 15.3 K/mm3 (4.0-10.0)
[2019-10-25 09:29] LABS: ALBUMIN 1.5 g/dl (3.4-5.0); BILIRUBIN,TOTAL 0.7 mg/dL (0.2-1); BLOOD UREA NITROGEN 15.7 mg/dL (7-18); CALCIUM 8.9 mg/dL (8.5-10.1); CREATININE 0.4 mg/dL (0.55-1.3); POTASSIUM 4.5 mmol/L (3.5-5.1); TOT PROT 5.9 g/dl (6.4-8.2)
[2019-10-25 09:49] LABS: ANISOCYTOSIS 2+; MACROCYTOSIS 0; PLATELET ESTIMATE NORMAL
--- NOTE | 2019-10-25 10:26 | PN ---
Progress Note, Physician History of Present Illness: has low grade fever yesterday has been afebrile so far - Current Medication List Current Medications: Active Medications Acetaminophen (Tylenol Oral Solution -) 650 mg GT Q6H PRN PRN Reason: PAIN Last Admin: 10/24/19 14:39 Dose: 650 mg Documented by: Albuterol/Ipratropium (Duoneb -) 1 amp NEB RQID [facility] Last Admin: 10/24/19 20:37 Dose: 1 amp Documented by: Allopurinol (Zyloprim -) 100 mg PEG DAILY [facility] Last Admin: 10/24/19 12:26 Dose: 100 mg Documented by: Amino Acids (Prosource No Carb Liquid Pkt) 30 ml GT BID@0800,1730 [facility] Last Admin: 10/24/19 18:21 Dose: 30 ml Documented by: Amlodipine Besylate (Norvasc -) 5 mg PEG DAILY [facility] Last Admin: 10/24/19 12:26 Dose: 5 mg Documented by: Ascorbic Acid (Vitamin C Oral Solution -) 500 mg GT DAILY [facility] Last Admin: 10/24/19 12:29 Dose: 500 mg Documented by: Atorvastatin Calcium (Lipitor -) 80 mg PEG HS [facility] Last Admin: 10/24/19 22:09 Dose: 80 mg Documented by: Banana Based Medical Food (Banatrol Plus Powder Packet) 1 packet PO TID [facility] Last Admin: 10/25/19 06:02 Dose: 1 packet Documented by: Cholecalciferol (Vitamin D3 -) 1,000 unit GT DAILY [facility] Last Admin: 10/24/19 12:28 Dose: 1,000 unit Documented by: Collagenase (Santyl -) 1 applic TP DAILY [facility]; Protocol Last Admin: 10/24/19 14:39 Dose: Not Given Documented by: Cyanocobalamin (Vitamin B12 -) 1,000 mcg PEG DAILY [facility] Last Admin: 10/24/19 12:29 Dose: 1,000 mcg Documented by: Famotidine (Pepcid) 20 mg PEG DAILY [facility] Ferrous Sulfate (Feosol) 300 mg GT BID [facility] Last Admin: 10/24/19 22:09 Dose: 300 mg Documented by: Heparin Sodium (Porcine) (Heparin -) 5,000 unit SQ BID [facility] Last Admin: 10/24/19 22:09 Dose: 5,000 unit Documented by: Meropenem 1 gm/ Dextrose 100 mls @ 200 mls/hr IVPB Q8H-IV [facility] Last Admin: 10/25/19 02:30 Dose: 200 mls/hr Documented by: Vancomycin HCl 1,250 mg/ (Dextrose) 250 mls @ 166.667 mls/hr IVPB Q12H [facility]; Protocol Last Admin: 10/25/19 03:50 Dose: 166.667 mls/hr Documented by: Sodium Chloride (1/2 Normal Saline) 1,000 mls @ 35 mls/hr IV ASDIR [facility] Last Admin: 10/24/19 12:27 Dose: 35 mls/hr Documented by: Insulin Aspart (Novolog Vial Sliding Scale -) 1 vial SQ Q6HPO [facility]; Protocol Last Admin: 10/25/19 06:02 Dose: 5 units Documented by: Insulin Detemir (Levemir Vial) 40 units SQ 0700,2200 [facility] Last Admin: 10/25/19 06:03 Dose: 40 units Documented by: Lactobacillus Acidophilus (Bacid -) 1 tab GT DAILY [facility] Last Admin: 10/24/19 12:29 Dose: 1 tab Documented by: Levetiracetam (Keppra Oral Solution -) 1,000 mg GT BID [facility] Last Admin: 10/24/19 22:09 Dose: 1,000 mg Documented by: Lisinopril (Prinivil) 5 mg GT DAILY [facility] Multivitamins/Minerals (Certavite-Antioxidant Liquid) 15 ml GT DAILY [facility] Last Admin: 10/24/19 12:31 Dose: 15 ml Documented by: Nystatin (Nystop Powder -) 1 applic TP BID [facility] Last Admin: 10/24/19 22:10 Dose: 1 applic Documented by: Prednisone (Deltasone -) 5 mg PEG DAILY [facility] Last Admin: 10/24/19 12:30 Dose: 5 mg Documented by: Valproate Sodium (Depakene -) 750 mg GT TID [facility] Last Admin: 10/25/19 06:02 Dose: 750 mg Documented by: - Objective Vital Signs: Vital Signs Temperature 99.1 F 10/25/19 06:00 Pulse Rate 89 10/25/19 06:00 Respiratory Rate 19 10/25/19 06:00 Blood Pressure 140/64 10/25/19 06:00 O2 Sat by Pulse Oximetry (%) 100 10/25/19 06:00 Constitutional: Yes: No Distress, Calm Cardiovascular: Yes: S1, S2 Respiratory: Yes: Other Gastrointestinal: Yes: Normal Bowel Sounds, Soft Musculoskeletal: Yes: WNL Extremities: Yes: Other Neurological: Yes: Other (non responsive) Labs: CBC, BMP 10/25/19 07:45 10/25/19 07:45 INR, PTT INR 1.05 (0.83-1.09) 10/17/19 18:47 Assessment/Plan Problem List - Problems (1) Gram-negative bacteremia Code(s): R78.81 - BACTEREMIA (2) History of CVA (cerebrovascular accident) Code(s): Z86.73 - PRSNL HX OF TIA (TIA), AND CEREB INFRC W/O RESID DEFICITS (3) CAD (coronary artery disease) Code(s): I25.10 - ATHSCL HEART DISEASE OF [place] CORONARY ARTERY W/O ANG PCTRS (4) Diarrhea Code(s): R19.7 - DIARRHEA, UNSPECIFIED (5) VESTA (acute kidney injury) Code(s): N17.9 - ACUTE KIDNEY FAILURE, UNSPECIFIED (6) Pneumonia Code(s): J18.9 - PNEUMONIA, UNSPECIFIED ORGANISM Qualifiers: Pneumonia type: due to unspecified organism Laterality: unspecified laterality Lung location: unspecified part of lung Qualified Code(s): J18.9 - Pneumonia, unspecified organism (7) Obese Code(s): E66.9 - OBESITY, UNSPECIFIED Qualifiers: Body mass index: BMI 60.0-69.9 (8) UTI (urinary tract infection) Code(s): N39.0 - URINARY TRACT INFECTION, SITE NOT SPECIFIED Qualifiers: Urinary tract infection type: site unspecified Hematuria presence: with hematuria Qualified Code(s): N39.0 - Urinary tract infection, site not specified; R31.9 - Hematuria, unspecified (9) Diabetes Code(s): E11.9 - TYPE 2 DIABETES MELLITUS WITHOUT COMPLICATIONS (10) HTN (hypertension) Code(s): I10 - ESSENTIAL (PRIMARY) HYPERTENSION (11) Hyperlipidemia Code(s): E78.5 - HYPERLIPIDEMIA, UNSPECIFIED (12) S/P CABG (coronary artery bypass graft) Code(s): Z95.1 - PRESENCE OF AORTOCORONARY BYPASS GRAFT (13) COPD (chronic obstructive pulmonary disease) Code(s): J44.9 - CHRONIC OBSTRUCTIVE PULMONARY DISEASE, UNSPECIFIED (14) Decubitus ulcer, stage 4 with infection Code(s): L89.94 - PRESSURE ULCER OF UNSPECIFIED SITE, STAGE 4; L08.9 - LOCAL INFECTION OF THE SKIN AND SUBCUTANEOUS TISSUE, UNSP (15) Lactic acid increased Code(s): E87.2 - ACIDOSIS (16) Metabolic encephalopathy Code(s): G93.41 - METABOLIC ENCEPHALOPATHY (17) Seizures Code(s): R56.9 - UNSPECIFIED CONVULSIONS (18) ESBL (extended spectrum beta-lactamase) producing bacteria infection Code(s): A49.9 - BACTERIAL INFECTION, UNSPECIFIED; Z16.12 - EXTENDED SPECTRUM BETA LACTAMASE (ESBL) RESISTANCE Assessment/Plan Sepsis Gram negative UTI with bacteremia ESBL + bacterial infection HCAP vs VAP Diarrhea Polymicrobial Sacral St IV DU infection/ likely OM Seizures Chronic respiratory failure s/p trach/MV Acute kidney injury Uncontrolled DM Morbid obesity Hx of CVA s/p thrombectomy CAD s/p CABG x 2 COPD Diastolic CHF HTN HLD plan continue abx rest as per the team monitor fevers monitor vanco levels
[2019-10-25] MEDS: predniSONE 5 MG TABLET (UD) PEG SCH (10:42)
[2019-10-25] MEDS: AMINO ACIDS/PROTEIN HYDROLYS 30 ML LIQUID.PKT GT SCH ×2 (10:42→18:23)
[2019-10-25] MEDS: FAMOTIDINE 40 MG/5 ML ORAL SUSPENSION PEG SCH (10:43)
[2019-10-25] MEDS: CYANOCOBALAMIN 1,000 MCG TABLET (FP) PEG SCH (10:43)
[2019-10-25] MEDS: LISINOPRIL 5 MG TABLET (FP) GT SCH (10:43)
[2019-10-25] MEDS: NYSTATIN POWDER 100,000 UNITS/GM - 15 GM TOPICAL POWDER TP SCH ×2 (10:43→21:30)
[2019-10-25] MEDS: ASCORBIC ACID 500 MG/5 ML UNIT DOSE CUP GT SCH (10:43)
[2019-10-25] MEDS: ALLOPURINOL 100 MG TABLET (FP) PEG SCH (10:43)
[2019-10-25] MEDS: LACTOBACILLUS ACIDOPHILUS 1 TABLET GT SCH (10:44)
[2019-10-25] MEDS: levETIRAcetam 500 MG/5 ML ORAL SOLUTION (UNIT-DOSE CUPS) GT SCH ×2 (10:44→21:30)
[2019-10-25] MEDS: CHOLECALCIFEROL (VIT D3) 1,000 UNIT (25 MCG) TABLET GT SCH (10:44)
[2019-10-25] MEDS: MULTIVIT-MINERALS ORAL LIQUID GT SCH (10:44)
[2019-10-25] MEDS: amLODIPine BESYLATE 5 MG TABLET (FP) PEG SCH (10:44)
[2019-10-25] MEDS: FERROUS SO4 300 MG/5 ML ORAL SOLN UNIT DOSE CUPS GT SCH ×2 (10:44→21:30)
[2019-10-25] MEDS: HEPARIN NA (PORCINE) 5,000 UNITS/ML 1ML VIAL SQ SCH ×2 (10:45→21:30)
--- NOTE | 2019-10-25 11:48 | PN ---
Progress Note, Physician Chief Complaint: Hyperglycemia Dehydration VESTA History of Present Illness: NAD obtunded Mech vented Remains febrile LA elevated On IV abx On rectal tube now- continues to have diarrhea Seen by GI- - Current Medication List Current Medications: Active Medications Acetaminophen (Tylenol Oral Solution -) 650 mg GT Q6H PRN PRN Reason: PAIN Last Admin: 10/24/19 14:39 Dose: 650 mg Documented by: Albuterol/Ipratropium (Duoneb -) 1 amp NEB RQID [facility] Last Admin: 10/24/19 20:37 Dose: 1 amp Documented by: Allopurinol (Zyloprim -) 100 mg PEG DAILY [facility] Last Admin: 10/25/19 10:43 Dose: 100 mg Documented by: Amino Acids (Prosource No Carb Liquid Pkt) 30 ml GT BID@0800,1730 [facility] Last Admin: 10/25/19 10:42 Dose: 30 ml Documented by: Amlodipine Besylate (Norvasc -) 5 mg PEG DAILY [facility] Last Admin: 10/25/19 10:44 Dose: 5 mg Documented by: Ascorbic Acid (Vitamin C Oral Solution -) 500 mg GT DAILY [facility] Last Admin: 10/25/19 10:43 Dose: 500 mg Documented by: Atorvastatin Calcium (Lipitor -) 80 mg PEG HS [facility] Last Admin: 10/24/19 22:09 Dose: 80 mg Documented by: Banana Based Medical Food (Banatrol Plus Powder Packet) 1 packet PO TID [facility] Last Admin: 10/25/19 06:02 Dose: 1 packet Documented by: Cholecalciferol (Vitamin D3 -) 1,000 unit GT DAILY [facility] Last Admin: 10/25/19 10:44 Dose: 1,000 unit Documented by: Collagenase (Santyl -) 1 applic TP DAILY [facility]; Protocol Last Admin: 10/24/19 14:39 Dose: Not Given Documented by: Cyanocobalamin (Vitamin B12 -) 1,000 mcg PEG DAILY [facility] Last Admin: 10/25/19 10:43 Dose: 1,000 mcg Documented by: Famotidine (Pepcid) 20 mg PEG DAILY [facility] Last Admin: 10/25/19 10:43 Dose: 20 mg Documented by: Ferrous Sulfate (Feosol) 300 mg GT BID [facility] Last Admin: 10/25/19 10:44 Dose: 300 mg Documented by: Heparin Sodium (Porcine) (Heparin -) 5,000 unit SQ BID [facility] Last Admin: 10/25/19 10:45 Dose: 5,000 unit Documented by: Meropenem 1 gm/ Dextrose 100 mls @ 200 mls/hr IVPB Q8H-IV [facility] Last Admin: 10/25/19 10:41 Dose: 200 mls/hr Documented by: Vancomycin HCl 1,250 mg/ (Dextrose) 250 mls @ 166.667 mls/hr IVPB Q12H [facility]; Protocol Last Admin: 10/25/19 03:50 Dose: 166.667 mls/hr Documented by: Sodium Chloride (1/2 Normal Saline) 1,000 mls @ 35 mls/hr IV ASDIR [facility] Last Admin: 10/24/19 12:27 Dose: 35 mls/hr Documented by: Insulin Aspart (Novolog Vial Sliding Scale -) 1 vial SQ Q6HPO [facility]; Protocol Last Admin: 10/25/19 06:02 Dose: 5 units Documented by: Insulin Detemir (Levemir Vial) 40 units SQ 0700,2200 [facility] Last Admin: 10/25/19 06:03 Dose: 40 units Documented by: Lactobacillus Acidophilus (Bacid -) 1 tab GT DAILY [facility] Last Admin: 10/25/19 10:44 Dose: 1 tab Documented by: Levetiracetam (Keppra Oral Solution -) 1,000 mg GT BID [facility] Last Admin: 10/25/19 10:44 Dose: 1,000 mg Documented by: Lisinopril (Prinivil) 5 mg GT DAILY [facility] Last Admin: 10/25/19 10:43 Dose: 5 mg Documented by: Multivitamins/Minerals (Certavite-Antioxidant Liquid) 15 ml GT DAILY [facility] Last Admin: 10/25/19 10:44 Dose: 15 ml Documented by: Nystatin (Nystop Powder -) 1 applic TP BID [facility] Last Admin: 10/25/19 10:43 Dose: 1 applic Documented by: Prednisone (Deltasone -) 5 mg PEG DAILY [facility] Last Admin: 10/25/19 10:42 Dose: 5 mg Documented by: Valproate Sodium (Depakene -) 750 mg GT TID [facility] Last Admin: 10/25/19 06:02 Dose: 750 mg Documented by: - Objective Vital Signs: Vital Signs Temperature 99.1 F 10/25/19 06:00 Pulse Rate 89 10/25/19 06:00 Respiratory Rate 19 10/25/19 06:00 Blood Pressure 140/64 10/25/19 06:00 O2 Sat by Pulse Oximetry (%) 100 10/25/19 06:00 Constitutional: Yes: Well Nourished, No Distress, Calm Cardiovascular: Yes: Regular Rate and Rhythm Respiratory: Yes: Regular, Mechanically Ventilated, Rhonchi (diffuse) Gastrointestinal: Yes: Normal Bowel Sounds, Soft Genitourinary: Yes: Robbins Present Extremities: Yes: Other (generalized atrophy) Edema: No Peripheral Pulses WNL: Yes Neurological: Yes: Pre-Existing Deficit Labs: CBC, BMP 10/25/19 07:45 10/25/19 07:45 INR, PTT INR 1.05 (0.83-1.09) 10/17/19 18:47 Problem List - Problems (1) Metabolic encephalopathy Assessment/Plan: -Cultures: Microbiology 10/17/19 18:40 Blood - Peripheral Venous Blood Culture - Final Proteus Mirabilus - Esbl Produ 10/18/19 18:10 Sputum - Endotrachea Suction/Ventilator Gram Stain - Final 10/18/19 18:10 Sputum - Endotrachea Suction/Ventilator Sputum Culture - Final Proteus Mirabilus - Esbl Produ Mr S Aureus 10/19/19 18:00 Blood - Peripheral Venous Blood Culture - Preliminary NO GROWTH OBTAINED AFTER 48 HOURS, INCUBATION TO CONTINUE FOR 3 DAYS. 10/19/19 17:50 Blood - Peripheral Venous Blood Culture - Preliminary NO GROWTH OBTAINED AFTER 48 HOURS, INCUBATION TO CONTINUE FOR 3 DAYS. 10/17/19 20:36 Urine - Urine - Catheterized Urine Culture - Final Proteus Mirabilus - Esbl Produ 10/18/19 23:00 Decubiti Gram Stain - Final 10/18/19 23:00 Decubiti Wound Culture - Final Proteus Species Lactose Fermenting Neg Bacilli Pseudomonas Species 10/17/19 18:40 Blood - Peripheral Venous Blood Culture - Final Proteus Mirabilus - Esbl Produ 10/18/19 03:30 Urine - Urine Robbins Urine Culture - Final Proteus Mirabilus - Esbl Produ 10/18/19 18:10 Stool Clostridioides difficile Antigen - Final 10/18/19 18:10 Stool Clostridioides difficile Toxin Assay - Final -ID consult -IV abx as per ID Problems reviewed: Yes Code(s): G93.41 - METABOLIC ENCEPHALOPATHY (2) VESTA (acute kidney injury) Assessment/Plan: -Resolved -Nephrology consult -Monitor trend Problems reviewed: Yes Code(s): N17.9 - ACUTE KIDNEY FAILURE, UNSPECIFIED (3) Acute hypercapnic respiratory failure Assessment/Plan: -Pulmonary consult -Mech vent -Failed weaning trial Problems reviewed: Yes Code(s): J96.02 - ACUTE RESPIRATORY FAILURE WITH HYPERCAPNIA (4) Diabetes Assessment/Plan: -BGM Q6H -A1c at 10.9 -ISS -Increase Levemir to 46 U BID -Endocrine consult appreciated Problems reviewed: Yes Code(s): E11.9 - TYPE 2 DIABETES MELLITUS WITHOUT COMPLICATIONS (5) Bacteremia Assessment/Plan: -ID consult -Monitor labs -IV abx-Meropenem + Vanco -Afebrile -LA noted -Repeat BC negative Problems reviewed: Yes Code(s): R78.81 - BACTEREMIA (6) Pneumonia Assessment/Plan: -CXR LLL infiltrate -ID consult -Pulmonary consult -COVID 19 Negative Code(s): J18.9 - PNEUMONIA, UNSPECIFIED ORGANISM Qualifiers: Pneumonia type: due to unspecified organism Laterality: unspecified laterality Lung location: unspecified part of lung Qualified Code(s): J18.9 - Pneumonia, unspecified organism (7) MRSA (methicillin resistant staph aureus) culture positive Problems reviewed: Yes Code(s): Z22.322 - CARRIER OR SUSPECTED CARRIER OF METHICILLIN RESIS STAPH (8) Anemia Assessment/Plan: -FANNY -Stool OB negative -B12, thyroid profile unremarkable -S/P 1 U PRBC -Monitor trend -Increased Ferrous sulfate to BID Problems reviewed: Yes Code(s): D64.9 - ANEMIA, UNSPECIFIED (9) Diarrhea Assessment/Plan: -Continue rectal tube -Cdiff negative -On Bacid -Added Bannitrol -AXR unremarkable -GI consult appreciated -Change TF to Vital 1.2 Problems reviewed: Yes Code(s): R19.7 - DIARRHEA, UNSPECIFIED (10) Seizures Assessment/Plan: -Twitching noted in RUE -Seen by Neurology -No changes in Keppra and Depakote -Exacerbated by acute infection? Problems reviewed: Yes Code(s): R56.9 - UNSPECIFIED CONVULSIONS Assessment/Plan See problem list Overall poor prognosis Palliative care on board Daughter wants everything done and LTACH placement when ready for dc
--- NOTE | 2019-10-25 13:07 | PN ---
Progress Note (short form) - Note Progress Note: Intermittently opening eyes. Otherwise no change in mental status. NAD on AC mode of vent. No acute events overnight. Intake & Output 10/22/19 10/23/19 10/24/19 10/25/19 23:59 23:59 23:59 23:59 Intake Total 4233 2775 3930 1810 Output Total 2100 2300 5300 700 Balance 2133 475 -1370 1110 Weight 212 lb 218 lb Last Vital Signs Temp Pulse Resp BP Pulse Ox 99.1 F 89 20 140/64 96 10/25/19 06:00 10/25/19 06:00 10/25/19 12:30 10/25/19 06:00 10/25/19 12:30 Active Medications Acetaminophen (Tylenol Oral Solution -) 650 mg GT Q6H PRN PRN Reason: PAIN Last Admin: 10/24/19 14:39 Dose: 650 mg Documented by: Albuterol/Ipratropium (Duoneb -) 1 amp NEB RQID [facility] Last Admin: 10/25/19 12:30 Dose: 1 amp Documented by: Allopurinol (Zyloprim -) 100 mg PEG DAILY [facility] Last Admin: 10/25/19 10:43 Dose: 100 mg Documented by: Amino Acids (Prosource No Carb Liquid Pkt) 30 ml GT BID@0800,1730 [facility] Last Admin: 10/25/19 10:42 Dose: 30 ml Documented by: Amlodipine Besylate (Norvasc -) 5 mg PEG DAILY [facility] Last Admin: 10/25/19 10:44 Dose: 5 mg Documented by: Ascorbic Acid (Vitamin C Oral Solution -) 500 mg GT DAILY [facility] Last Admin: 10/25/19 10:43 Dose: 500 mg Documented by: Atorvastatin Calcium (Lipitor -) 80 mg PEG HS [facility] Last Admin: 10/24/19 22:09 Dose: 80 mg Documented by: Banana Based Medical Food (Banatrol Plus Powder Packet) 1 packet PO TID [facility] Last Admin: 10/25/19 06:02 Dose: 1 packet Documented by: Cholecalciferol (Vitamin D3 -) 1,000 unit GT DAILY [facility] Last Admin: 10/25/19 10:44 Dose: 1,000 unit Documented by: Collagenase (Santyl -) 1 applic TP DAILY [facility]; Protocol Last Admin: 10/24/19 14:39 Dose: Not Given Documented by: Cyanocobalamin (Vitamin B12 -) 1,000 mcg PEG DAILY [facility] Last Admin: 10/25/19 10:43 Dose: 1,000 mcg Documented by: Famotidine (Pepcid) 20 mg PEG DAILY [facility] Last Admin: 10/25/19 10:43 Dose: 20 mg Documented by: Ferrous Sulfate (Feosol) 300 mg GT BID [facility] Last Admin: 10/25/19 10:44 Dose: 300 mg Documented by: Heparin Sodium (Porcine) (Heparin -) 5,000 unit SQ BID [facility] Last Admin: 10/25/19 10:45 Dose: 5,000 unit Documented by: Meropenem 1 gm/ Dextrose 100 mls @ 200 mls/hr IVPB Q8H-IV [facility] Last Admin: 10/25/19 10:41 Dose: 200 mls/hr Documented by: Vancomycin HCl 1,250 mg/ (Dextrose) 250 mls @ 166.667 mls/hr IVPB Q12H [facility]; Protocol Last Admin: 10/25/19 03:50 Dose: 166.667 mls/hr Documented by: Sodium Chloride (1/2 Normal Saline) 1,000 mls @ 35 mls/hr IV ASDIR [facility] Last Admin: 10/24/19 12:27 Dose: 35 mls/hr Documented by: Insulin Aspart (Novolog Vial Sliding Scale -) 1 vial SQ Q6HPO [facility]; Protocol Last Admin: 10/25/19 06:02 Dose: 5 units Documented by: Insulin Detemir (Levemir Vial) 40 units SQ 0700,2200 [facility] Last Admin: 10/25/19 06:03 Dose: 40 units Documented by: Lactobacillus Acidophilus (Bacid -) 1 tab GT DAILY [facility] Last Admin: 10/25/19 10:44 Dose: 1 tab Documented by: Levetiracetam (Keppra Oral Solution -) 1,000 mg GT BID [facility] Last Admin: 10/25/19 10:44 Dose: 1,000 mg Documented by: Lisinopril (Prinivil) 5 mg GT DAILY [facility] Last Admin: 10/25/19 10:43 Dose: 5 mg Documented by: Multivitamins/Minerals (Certavite-Antioxidant Liquid) 15 ml GT DAILY [facility] Last Admin: 10/25/19 10:44 Dose: 15 ml Documented by: Nystatin (Nystop Powder -) 1 applic TP BID [facility] Last Admin: 10/25/19 10:43 Dose: 1 applic Documented by: Prednisone (Deltasone -) 5 mg PEG DAILY [facility] Last Admin: 10/25/19 10:42 Dose: 5 mg Documented by: Valproate Sodium (Depakene -) 750 mg GT TID [facility] Last Admin: 10/25/19 06:02 Dose: 750 mg Documented by: Cardiovascular: Yes: S1, S2 Respiratory: Yes: Mechanically Ventilated, Diminished Gastrointestinal: Yes: Normal Bowel Sounds, Soft Neurological: Yes: Unresponsive Labs: Laboratory Results - last 24 hr 10/21/19 10/24/19 10/25/19 12:44 18:19 00:39 WBC RBC Hgb Hct MCV MCH MCHC RDW Plt Count MPV Absolute Neuts (auto) Neutrophils % Neutrophils % (Manual) Band Neutrophils % Lymphocytes % Lymphocytes % (Manual) Monocytes % Monocytes % (Manual) Eosinophils % Eosinophils % (Manual) Basophils % Basophils % (Manual) Myelocytes % (Man) Promyelocytes % (Man) Blast Cells % (Manual) Nucleated RBC % Metamyelocytes Hypochromia Platelet Estimate Polychromasia Poikilocytosis Basophilic Stippling Anisocytosis Microcytosis Macrocytosis Stomatocytes Zara Cells Sodium Potassium Chloride Carbon Dioxide Anion Gap BUN Creatinine Est GFR (CKD-EPI)AfAm Est GFR (CKD-EPI)NonAf POC Glucometer 302 283 Random Glucose Calcium Total Bilirubin AST ALT Alkaline Phosphatase Total Protein Albumin Blood Type A POSITIVE Antibody Screen Negative Crossmatch See Detail 10/25/19 10/25/19 10/25/19 05:59 07:45 07:45 WBC 15.3 H RBC 4.06 Hgb 9.2 L Hct 29.8 L MCV 73.4 L MCH 22.7 L MCHC 30.9 L RDW 20.5 H Plt Count 373 MPV 8.6 Absolute Neuts (auto) 10.3 H Neutrophils % 66.9 Neutrophils % (Manual) 61.3 Band Neutrophils % 10.0 Lymphocytes % 23.1 Lymphocytes % (Manual) 12.8 D Monocytes % 8.9 Monocytes % (Manual) 11 H D Eosinophils % 0.9 Eosinophils % (Manual) 3.2 D Basophils % 0.2 Basophils % (Manual) 0.0 Myelocytes % (Man) 0 D Promyelocytes % (Man) 0 Blast Cells % (Manual) 0 Nucleated RBC % 2 H Metamyelocytes 0 D Hypochromia 1+ Platelet Estimate Normal Polychromasia 2+ Poikilocytosis 1+ Basophilic Stippling 1+ Anisocytosis 2+ Microcytosis 2+ Macrocytosis 0 Stomatocytes 1+ [place] Cells 1+ Sodium 135 L Potassium 4.5 Chloride 97 L Carbon Dioxide 31 Anion Gap 7 L BUN 15.7 Creatinine 0.4 L Est GFR (CKD-EPI)AfAm 121.45 Est GFR (CKD-EPI)NonAf 104.79 POC Glucometer 246 Random Glucose 279 H Calcium 8.9 Total Bilirubin 0.7 AST 61 H ALT 71 H Alkaline Phosphatase 148 H Total Protein 5.9 L Albumin 1.5 L Blood Type Antibody Screen Crossmatch Problem List - Problems (1) Lactic acid increased Code(s): E87.2 - ACIDOSIS (2) VESTA (acute kidney injury) Code(s): N17.9 - ACUTE KIDNEY FAILURE, UNSPECIFIED (3) Bacteremia Code(s): R78.81 - BACTEREMIA (4) CAD (coronary artery disease) Code(s): I25.10 - ATHSCL HEART DISEASE OF [place] CORONARY ARTERY W/O ANG PCTRS (5) COPD (chronic obstructive pulmonary disease) Code(s): J44.9 - CHRONIC OBSTRUCTIVE PULMONARY DISEASE, UNSPECIFIED (6) Gram-negative bacteremia Code(s): R78.81 - BACTEREMIA (7) History of CVA (cerebrovascular accident) Code(s): Z86.73 - PRSNL HX OF TIA (TIA), AND CEREB INFRC W/O RESID DEFICITS (8) Pneumonia Code(s): J18.9 - PNEUMONIA, UNSPECIFIED ORGANISM Qualifiers: Pneumonia type: due to unspecified organism Laterality: unspecified laterality Lung location: unspecified part of lung Qualified Code(s): J18.9 - Pneumonia, unspecified organism (9) Arteriosclerotic heart disease (ASHD) Code(s): I25.10 - ATHSCL HEART DISEASE OF [place] CORONARY ARTERY W/O ANG PCTRS (10) Diabetes Code(s): E11.9 - TYPE 2 DIABETES MELLITUS WITHOUT COMPLICATIONS (11) HTN (hypertension) Code(s): I10 - ESSENTIAL (PRIMARY) HYPERTENSION (12) S/P CABG (coronary artery bypass graft) Code(s): Z95.1 - PRESENCE OF AORTOCORONARY BYPASS GRAFT (13) Chronic respiratory failure Code(s): J96.10 - CHRONIC RESPIRATORY FAILURE, UNSP W HYPOXIA OR HYPERCAPNIA (14) Sepsis Code(s): A41.9 - SEPSIS, UNSPECIFIED ORGANISM (15) High glucose Code(s): R73.09 - OTHER ABNORMAL GLUCOSE IMP CHRONIC RESPIRATORY FAILURE S/P CVA WITH THROMBECTOMY UROSEPSIS GRAM NEG BACTEREMIA ? PNEUMONIA ELEVATED LACTATE LEVEL ASHD S/P CABG COPD HTN HLD DIASTOLIC HF SACRAL DECUBITUS VESTA ANEMIA PLAN VENT SUPPORT ON AC MODE IVF ABX PER ID MONITOR LYTES,RENAL FUNCTION, WOUND CARE GOC still being discussed Dr Norman
[2019-10-25] MEDS: COLLAGENASE CLOSTRIDIUM HIST. 30 GRAMS TUBE TP SCH (14:35)
[2019-10-25] MEDS: SODIUM CHLORIDE 0.45% 1,000 ML IV SCH (14:47)
--- NOTE | 2019-10-25 15:03 | PN ---
Progress Note, Physician History of Present Illness: Pt seen and examined at bedside. No great change in status. - Current Medication List Current Medications: Active Medications Acetaminophen (Tylenol Oral Solution -) 650 mg GT Q6H PRN PRN Reason: PAIN Last Admin: 10/24/19 14:39 Dose: 650 mg Documented by: Albuterol/Ipratropium (Duoneb -) 1 amp NEB RQID [facility]PL[facility] BY [facility] Last Admin: 10/25/19 12:30 Dose: 1 amp Documented by: Allopurinol (Zyloprim -) 100 mg PEG DAILY [facility] Last Admin: 10/25/19 10:43 Dose: 100 mg Documented by: Amino Acids (Prosource No Carb Liquid Pkt) 30 ml GT BID@0800,1730 [facility] Last Admin: 10/25/19 10:42 Dose: 30 ml Documented by: Amlodipine Besylate (Norvasc -) 5 mg PEG DAILY [facility] Last Admin: 10/25/19 10:44 Dose: 5 mg Documented by: Ascorbic Acid (Vitamin C Oral Solution -) 500 mg GT DAILY [facility] Last Admin: 10/25/19 10:43 Dose: 500 mg Documented by: Atorvastatin Calcium (Lipitor -) 80 mg PEG HS [facility] Last Admin: 10/24/19 22:09 Dose: 80 mg Documented by: Banana Based Medical Food (Banatrol Plus Powder Packet) 1 packet PO TID [facility] Last Admin: 10/25/19 14:46 Dose: 1 packet Documented by: Cholecalciferol (Vitamin D3 -) 1,000 unit GT DAILY [facility] Last Admin: 10/25/19 10:44 Dose: 1,000 unit Documented by: Collagenase (Santyl -) 1 applic TP DAILY [facility]; Protocol Last Admin: 10/25/19 14:35 Dose: Not Given Documented by: Cyanocobalamin (Vitamin B12 -) 1,000 mcg PEG DAILY [facility] Last Admin: 10/25/19 10:43 Dose: 1,000 mcg Documented by: Famotidine (Pepcid) 20 mg PEG DAILY [facility] Last Admin: 10/25/19 10:43 Dose: 20 mg Documented by: Ferrous Sulfate (Feosol) 300 mg GT BID [facility]PL[facility]ED [facility] Last Admin: 10/25/19 10:44 Dose: 300 mg Documented by: Heparin Sodium (Porcine) (Heparin -) 5,000 unit SQ BID [facility]PL[facility] Last Admin: 10/25/19 10:45 Dose: 5,000 unit Documented by: Meropenem 1 gm/ Dextrose 100 mls @ 200 mls/hr IVPB Q8H-IV [facility] Last Admin: 10/25/19 10:41 Dose: 200 mls/hr Documented by: Vancomycin HCl 1,250 mg/ (Dextrose) 250 mls @ 166.667 mls/hr IVPB Q12H [facility]PLACED [facility]; Protocol Last Admin: 10/25/19 03:50 Dose: 166.667 mls/hr Documented by: Sodium Chloride (1/2 Normal Saline) 1,000 mls @ 35 mls/hr IV ASDIR REPLACED BY [facility] Last Admin: 10/25/19 14:47 Dose: Not Given Documented by: Insulin Aspart (Novolog Vial Sliding Scale -) 1 vial SQ Q6HPO [facility]PL[facility]ED [facility]; Protocol Last Admin: 10/25/19 14:46 Dose: 6 units Documented by: Insulin Detemir (Levemir Vial) 40 units SQ 0700,2200 [facility]PL[facility]ED [facility] Last Admin: 10/25/19 06:03 Dose: 40 units Documented by: Lactobacillus Acidophilus (Bacid -) 1 tab GT DAILY [facility] Last Admin: 10/25/19 10:44 Dose: 1 tab Documented by: Levetiracetam (Keppra Oral Solution -) 1,000 mg GT BID REPL[facility]ED [facility] Last Admin: 10/25/19 10:44 Dose: 1,000 mg Documented by: Lisinopril (Prinivil) 5 mg GT DAILY [facility] Last Admin: 10/25/19 10:43 Dose: 5 mg Documented by: Multivitamins/Minerals (Certavite-Antioxidant Liquid) 15 ml GT DAILY [facility]PL[facility]ED [facility] Last Admin: 10/25/19 10:44 Dose: 15 ml Documented by: Nystatin (Nystop Powder -) 1 applic TP BID [facility]PL[facility]ED [facility] Last Admin: 10/25/19 10:43 Dose: 1 applic Documented by: Prednisone (Deltasone -) 5 mg PEG DAILY [facility] Last Admin: 10/25/19 10:42 Dose: 5 mg Documented by: Valproate Sodium (Depakene -) 750 mg GT TID REPLACED BY [facility] Last Admin: 10/25/19 14:45 Dose: 750 mg Documented by: - Objective Vital Signs: Vital Signs Temperature 99.1 F 10/25/19 06:00 Pulse Rate 89 10/25/19 06:00 Respiratory Rate 20 07/23/20 12:30 Blood Pressure 140/64 07/23/20 06:00 O2 Sat by Pulse Oximetry (%) 96 10/25/19 12:30 Constitutional: Yes: Calm Eyes: Yes: Conjunctiva Clear Neck: Yes: Supple Cardiovascular: Yes: S1, S2 Respiratory: Yes: Mechanically Ventilated Gastrointestinal: Yes: Soft, Abdomen, Obese Genitourinary: Yes: Incontinence Edema: Yes Neurological: Yes: Pre-Existing Deficit Labs: CBC, BMP 10/25/19 07:45 10/25/19 07:45 INR, PTT INR 1.05 (0.83-1.09) 10/17/19 18:47 Assessment/Plan Current Medications Generic Name Dose Route Start Last Admin Trade Name Freq PRN Reason Stop Dose Admin Acetaminophen 650 mg 10/18/19 12:21 10/24/19 14:39 Tylenol Oral Solution - GT 650 mg Q6H PRN Administration PAIN Albuterol/Ipratropium 1 amp 10/18/19 08:00 10/25/19 12:30 Duoneb - NEB 1 amp RQID [facility] Administration Allopurinol 100 mg 10/18/19 10:00 10/25/19 10:43 Zyloprim - PEG 100 mg DAILY [facility] Administration Amino Acids 30 ml 10/24/19 08:00 10/25/19 10:42 Prosource No Carb Liquid Pkt GT 30 ml BID@0800,1730 [facility] Administration Amlodipine Besylate 5 mg 10/18/19 10:00 10/25/19 10:44 Norvasc - PEG 5 mg DAILY [facility] Administration Ascorbic Acid 500 mg 10/18/19 13:00 10/25/19 10:43 Vitamin C Oral Solution - GT 500 mg DAILY [facility] Administration Atorvastatin Calcium 80 mg 10/18/19 22:00 10/24/19 22:09 Lipitor - PEG 80 mg HS [facility] Administration Banana Based Medical Food 1 packet 10/22/19 14:00 10/25/19 14:46 Banatrol Plus Powder Packet PO 1 packet TID [facility] Administration Cholecalciferol 1,000 unit 10/20/19 07:36 10/25/19 10:44 Vitamin D3 - GT 1,000 unit DAILY [facility] Administration Collagenase 1 applic 10/18/19 13:00 10/25/19 14:35 Santyl - TP Not Given DAILY [facility] Protocol Cyanocobalamin 1,000 mcg 10/20/19 07:36 07/23/20 10:43 Vitamin B12 - PEG 1,000 mcg DAILY [facility] Administration Famotidine 20 mg 10/25/19 10:00 10/25/19 10:43 Pepcid PEG 20 mg DAILY [facility] Administration Ferrous Sulfate 300 mg 10/22/19 22:00 10/25/19 10:44 Feosol GT 300 mg BID [facility] Administration Heparin Sodium (Porcine) 5,000 unit 10/18/19 22:15 10/25/19 10:45 Heparin - SQ 5,000 unit BID [facility] Administration Meropenem 1 gm/ Dextrose 100 mls @ 200 mls/hr 10/20/19 18:00 10/25/19 10:41 IVPB 200 mls/hr Q8H-IV [facility] Administration Vancomycin HCl 1,250 mg/ 250 mls @ 166.667 mls/hr 10/24/19 16:00 10/25/19 03:50 Dextrose IVPB 166.667 mls/hr Q12H [facility] Administration Protocol Sodium Chloride 1,000 mls @ 35 mls/hr 10/24/19 12:00 10/25/19 14:47 1/2 Normal Saline IV Not Given ASDIR [facility] Insulin Aspart 1 vial 10/21/19 01:05 10/25/19 14:46 Novolog Vial Sliding Scale - SQ 6 units Q6HPO [facility] Administration Protocol Insulin Detemir 40 units 10/24/19 22:00 10/25/19 06:03 Levemir Vial SQ 40 units 0700,2200 [facility] Administration Lactobacillus Acidophilus 1 tab 10/20/19 17:00 10/25/19 10:44 Bacid - GT 1 tab DAILY [facility] Administration Levetiracetam 1,000 mg 10/18/19 12:30 10/25/19 10:44 Keppra Oral Solution - GT 1,000 mg BID [facility] Administration Lisinopril 5 mg 10/25/19 10:00 10/25/19 10:43 Prinivil GT 5 mg DAILY [facility] Administration Multivitamins/Minerals 15 ml 10/18/19 12:30 10/25/19 10:44 Certavite-Antioxidant Liquid GT 15 ml DAILY [facility] Administration Nystatin 1 applic 10/18/19 12:30 10/25/19 10:43 Nystop Powder - TP 1 applic BID MARIE Administration Prednisone 5 mg 10/18/19 10:00 10/25/19 10:42 Deltasone - PEG 5 mg DAILY MARIE Administration Valproate Sodium 750 mg 10/18/19 14:00 10/25/19 14:45 Depakene - GT 750 mg TID MARIE Administration Impression 1. VESTA 2. DM 3. hypernatremia 4. resp failure 5. cva 6. copd 7. htn Plan - will stop fluids as she is developing edema - renal function stable - repeat labs in am - cont vent support - cont to monitor lytes - corrected sodium is normal
[2019-10-25] MEDS: ATORVASTATIN CA 80 MG TABLET (FP) PEG SCH (21:30)
--- NOTE | 2019-10-25 23:11 | PN ---
Progress Note, Physician - Current Medication List Current Medications: Active Medications Acetaminophen (Tylenol Oral Solution -) 650 mg GT Q6H PRN PRN Reason: PAIN Last Admin: 10/24/19 14:39 Dose: 650 mg Documented by: Albuterol/Ipratropium (Duoneb -) 1 amp NEB RQID REPLACED BY [facility] Last Admin: 10/25/19 20:32 Dose: 1 amp Documented by: Allopurinol (Zyloprim -) 100 mg PEG DAILY REPLACED BY [facility] Last Admin: 10/25/19 10:43 Dose: 100 mg Documented by: Amino Acids (Prosource No Carb Liquid Pkt) 30 ml GT BID@0800,1730 REPLACED BY [facility] Last Admin: 10/25/19 18:23 Dose: 30 ml Documented by: Amlodipine Besylate (Norvasc -) 5 mg PEG DAILY REPLACED BY [facility] Last Admin: 10/25/19 10:44 Dose: 5 mg Documented by: Ascorbic Acid (Vitamin C Oral Solution -) 500 mg GT DAILY REPLACED BY [facility] Last Admin: 10/25/19 10:43 Dose: 500 mg Documented by: Atorvastatin Calcium (Lipitor -) 80 mg PEG HS REPLACED BY [facility] Last Admin: 10/25/19 21:30 Dose: 80 mg Documented by: Banana Based Medical Food (Banatrol Plus Powder Packet) 1 packet PO TID REPLACED BY [facility] Last Admin: 10/25/19 21:30 Dose: 1 packet Documented by: Cholecalciferol (Vitamin D3 -) 1,000 unit GT DAILY REPLACED BY [facility] Last Admin: 10/25/19 10:44 Dose: 1,000 unit Documented by: Collagenase (Santyl -) 1 applic TP DAILY REPLACED BY [facility]; Protocol Last Admin: 10/25/19 14:35 Dose: Not Given Documented by: Cyanocobalamin (Vitamin B12 -) 1,000 mcg PEG DAILY REPLACED BY [facility] Last Admin: 10/25/19 10:43 Dose: 1,000 mcg Documented by: Famotidine (Pepcid) 20 mg PEG DAILY REPLACED BY [facility] Last Admin: 10/25/19 10:43 Dose: 20 mg Documented by: Ferrous Sulfate (Feosol) 300 mg GT BID REPLACED BY [facility] Last Admin: 10/25/19 21:30 Dose: 300 mg Documented by: Heparin Sodium (Porcine) (Heparin -) 5,000 unit SQ BID REPLACED BY [facility] Last Admin: 10/25/19 21:30 Dose: 5,000 unit Documented by: Meropenem 1 gm/ Dextrose 100 mls @ 200 mls/hr IVPB Q8H-IV REPLACED BY [facility] Last Admin: 10/25/19 18:23 Dose: 200 mls/hr Documented by: Vancomycin HCl 1,250 mg/ (Dextrose) 250 mls @ 166.667 mls/hr IVPB Q12H REPLACED BY [facility]; Protocol Last Admin: 10/25/19 16:22 Dose: 166.667 mls/hr Documented by: Insulin Aspart (Novolog Vial Sliding Scale -) 1 vial SQ Q6HPO REPLACED BY [facility]; Protocol Last Admin: 10/25/19 19:08 Dose: 7 units Documented by: Insulin Detemir (Levemir Vial) 46 units SQ 0700,2200 REPLACED BY [facility] Lactobacillus Acidophilus (Bacid -) 1 tab GT DAILY REPLACED BY [facility] Last Admin: 10/25/19 10:44 Dose: 1 tab Documented by: Levetiracetam (Keppra Oral Solution -) 1,000 mg GT BID REPLACED BY [facility] Last Admin: 10/25/19 21:30 Dose: 1,000 mg Documented by: Lisinopril (Prinivil) 5 mg GT DAILY REPLACED BY [facility] Last Admin: 10/25/19 10:43 Dose: 5 mg Documented by: Multivitamins/Minerals (Certavite-Antioxidant Liquid) 15 ml GT DAILY REPLACED BY [facility] Last Admin: 10/25/19 10:44 Dose: 15 ml Documented by: Nystatin (Nystop Powder -) 1 applic TP BID REPLACED BY [facility] Last Admin: 10/25/19 21:30 Dose: 1 applic Documented by: Prednisone (Deltasone -) 5 mg PEG DAILY REPLACED BY [facility] Last Admin: 10/25/19 10:42 Dose: 5 mg Documented by: Valproate Sodium (Depakene -) 750 mg GT TID REPLACED BY [facility] Last Admin: 10/25/19 21:29 Dose: 750 mg Documented by: - Objective Vital Signs: Vital Signs Temperature 99 F 10/25/19 21:57 Pulse Rate 101 H 10/25/19 21:57 Respiratory Rate 23 H 10/25/19 20:34 Blood Pressure 146/78 10/25/19 21:57 O2 Sat by Pulse Oximetry (%) 98 10/25/19 21:57 Labs: CBC, BMP 10/25/19 07:45 10/25/19 07:45 INR, PTT INR 1.05 (0.83-1.09) 10/17/19 18:47 Assessment/Plan Plan: On amllodipine and lisinopril (low-normal systolic/diastolic CHF; HTN; DM). ABX resp support per pulmonary DVT plx wound care F/u BUn/Cr, electrolytes, daily weight, Is and Os.
[2019-10-26] MEDS ORDERED: DEXTROSE 5%-WATER 100 ML IVPB ONE ×3 (01:04→17:17)
[2019-10-26] MEDS ORDERED: MEROPENEM 1 GM VIAL (RESTRICTED TO ID) IVPB ONE ×3 (01:04→17:17)
[2019-10-26] MEDS: MEROPENEM 1 GM in DEXTROSE 5%-WATER 100 ML IVPB SCH ×3 (01:29→17:52)
[2019-10-26] MEDS: VANCOMYCIN 1,250 MG in DEXTROSE 5%-WATER - 250 ML IVPB SCH ×2 (03:23→15:00)
[2019-10-26] MEDS: VALPROATE SODIUM 250 MG/5 ML UNIT DOSE CUP GT SCH ×3 (05:40→23:23)
[2019-10-26] MEDS: BANATROL PLUS POWDER PACKET PO SCH ×3 (05:40→21:38)
[2019-10-26] MEDS: INSULIN SLIDING SCALE (NOVOLOG) 1 VIAL SQ SCH ×4 (06:10→23:27)
[2019-10-26] MEDS: INSULIN (LEVEMIR) 100 UNITS/ML UNITS SQ SCH ×2 (06:10→23:24)
[2019-10-26] MEDS ORDERED: INSULIN (NOVOLOG) ASPART 100 UNITS/ML 10ML VIAL ONE ×2 (06:46→23:27)
[2019-10-26 08:29] LABS: BASO % 0.3 % (0-2.0); EOS % 0.7 % (0-4.5); MCH 22.8 pg (25.7-33.7); MCHC 30.9 g/dl (32.0-36.0); MEAN CELL VOLUME 73.9 fl (80-96); MEAN PLT VOLUME 8.8 fl (7.5-11.1); MONO % 8.9 % (3.8-10.2); NEUT % 66.1 % (42.8-82.8); PLATELET COUNT 367 K/MM3 (134-434); RBC 3.93 M/mm3 (3.60-5.2); RDW 21.6 % (11.6-15.6); WHITE BLOOD COUNT 15.7 K/mm3 (4.0-10.0)
[2019-10-26] MEDS: ALBUTEROL SO4 2.5/IPRATROPIUM 0.5 INH SOL 3 ML VIAL.NEB. NEB SCH ×4 (08:57→20:30)
[2019-10-26 09:03] LABS: ALBUMIN 1.5 g/dl (3.4-5.0); BLOOD UREA NITROGEN 16.5 mg/dL (7-18); CALCIUM 8.7 mg/dL (8.5-10.1); CREATININE 0.3 mg/dL (0.55-1.3); POTASSIUM 4.5 mmol/L (3.5-5.1)
[2019-10-26 09:04] LABS: BILIRUBIN,TOTAL 0.4 mg/dL (0.2-1); TOT PROT 5.7 g/dl (6.4-8.2)
[2019-10-26] MEDS: AMINO ACIDS/PROTEIN HYDROLYS 30 ML LIQUID.PKT GT SCH ×2 (09:51→17:20)
[2019-10-26] MEDS: LACTOBACILLUS ACIDOPHILUS 1 TABLET GT SCH (09:52)
[2019-10-26] MEDS: HEPARIN NA (PORCINE) 5,000 UNITS/ML 1ML VIAL SQ SCH ×2 (09:52→21:39)
[2019-10-26] MEDS: ALLOPURINOL 100 MG TABLET (FP) PEG SCH (09:53)
[2019-10-26] MEDS: FERROUS SO4 300 MG/5 ML ORAL SOLN UNIT DOSE CUPS GT SCH ×2 (09:53→21:39)
[2019-10-26] MEDS: amLODIPine BESYLATE 5 MG TABLET (FP) PEG SCH (09:53)
[2019-10-26] MEDS: CHOLECALCIFEROL (VIT D3) 1,000 UNIT (25 MCG) TABLET GT SCH (09:53)
[2019-10-26] MEDS: NYSTATIN POWDER 100,000 UNITS/GM - 15 GM TOPICAL POWDER TP SCH ×2 (09:54→21:40)
[2019-10-26] MEDS: FAMOTIDINE 40 MG/5 ML ORAL SUSPENSION PEG SCH (09:54)
[2019-10-26] MEDS: MULTIVIT-MINERALS ORAL LIQUID GT SCH (09:55)
[2019-10-26] MEDS: ASCORBIC ACID 500 MG/5 ML UNIT DOSE CUP GT SCH (09:55)
[2019-10-26] MEDS: predniSONE 5 MG TABLET (UD) PEG SCH (09:55)
[2019-10-26] MEDS: CYANOCOBALAMIN 1,000 MCG TABLET (FP) PEG SCH (09:57)
[2019-10-26] MEDS: COLLAGENASE CLOSTRIDIUM HIST. 30 GRAMS TUBE TP SCH (09:59)
[2019-10-26] MEDS: LISINOPRIL 5 MG TABLET (FP) GT SCH (10:03)
[2019-10-26 10:06] LABS: ANISOCYTOSIS 2+; MACROCYTOSIS 0; PLATELET ESTIMATE NORMAL
[2019-10-26] MEDS: levETIRAcetam 500 MG/5 ML ORAL SOLUTION (UNIT-DOSE CUPS) GT SCH ×2 (11:16→21:39)
[2019-10-26 11:17] VITALS: BMI 39.9
--- NOTE | 2019-10-26 11:40 | PROC ---
VAC Application - Indications Decubitus ulcer A decision was made to utilize Negative Pressure Therapy (Veraflo) to help with debridement of fibrinous slough thus decreasing need for serial debridements. Expedite wound closure through promotion of granulation tissue formation - Wound description Wound location: Sacrum Length (cm): 8 Width (cm): 7 Depth (cm): 7 Wound area (sq cm): 56.00 Wound Description: Muscle exposed: Yes, Bone exposed: Yes (fibrinous exudate to base, mild odor emanating from wound), Undermining: No - Device VAC Selection: Veraflo - Procedure Area cleansed. Prepped/draped. Veraflo perforated sponge tailored to fit just inside of wound and hogan foam on top to account for wound depth. Foam bridged to right hip. Suction disc placed in location so as not to be uncomfortable for the patient or cause any pressure point. Good seal as verified by complete foam collapse and no leak on unit monitor. Surgery PAs to re-eval on Tuesday during rounds. Veraflo Settings: Soak time: 2 mins Volume: 24mL (increased from 8mL to account for foam bridge) Frequency: Every 3.5 hours 125 mmHg - CPT Code CPT code: [id number] >50 sq cm
--- NOTE | 2019-10-26 12:04 | PN ---
Progress Note, Physician Chief Complaint: Hyperglycemia Dehydration VESTA History of Present Illness: NAD obtunded Mech vented Remains febrile LA elevated On IV abx On rectal tube- continues to have diarrhea Seen by GI- Day # 6 of meropenem Day 3 of Vancomycin - Current Medication List Current Medications: Active Medications Acetaminophen (Tylenol Oral Solution -) 650 mg GT Q6H PRN PRN Reason: PAIN Last Admin: 10/24/19 14:39 Dose: 650 mg Documented by: Albuterol/Ipratropium (Duoneb -) 1 amp NEB RQID [facility] Last Admin: 10/26/19 08:57 Dose: 1 amp Documented by: Allopurinol (Zyloprim -) 100 mg PEG DAILY [facility] Last Admin: 10/26/19 09:53 Dose: 100 mg Documented by: Amino Acids (Prosource No Carb Liquid Pkt) 30 ml GT BID@0800,1730 [facility] Last Admin: 10/26/19 09:51 Dose: 30 ml Documented by: Amlodipine Besylate (Norvasc -) 5 mg PEG DAILY [facility] Last Admin: 10/26/19 09:53 Dose: 5 mg Documented by: Ascorbic Acid (Vitamin C Oral Solution -) 500 mg GT DAILY [facility] Last Admin: 10/26/19 09:55 Dose: 500 mg Documented by: Atorvastatin Calcium (Lipitor -) 80 mg PEG HS [facility] Last Admin: 10/25/19 21:30 Dose: 80 mg Documented by: Banana Based Medical Food (Banatrol Plus Powder Packet) 1 packet PO TID [facility] Last Admin: 10/26/19 05:40 Dose: 1 packet Documented by: Cholecalciferol (Vitamin D3 -) 1,000 unit GT DAILY [facility] Last Admin: 10/26/19 09:53 Dose: 1,000 unit Documented by: Collagenase (Santyl -) 1 applic TP DAILY [facility]; Protocol Last Admin: 10/26/19 09:59 Dose: Not Given Documented by: Cyanocobalamin (Vitamin B12 -) 1,000 mcg PEG DAILY [facility] Last Admin: 10/26/19 09:57 Dose: 1,000 mcg Documented by: Famotidine (Pepcid) 20 mg PEG DAILY [facility] Last Admin: 10/26/19 09:54 Dose: 20 mg Documented by: Ferrous Sulfate (Feosol) 300 mg GT BID [facility] Last Admin: 10/26/19 09:53 Dose: 300 mg Documented by: Heparin Sodium (Porcine) (Heparin -) 5,000 unit SQ BID [facility] Last Admin: 10/26/19 09:52 Dose: 5,000 unit Documented by: Meropenem 1 gm/ Dextrose 100 mls @ 200 mls/hr IVPB Q8H-IV [facility] Last Admin: 10/26/19 09:58 Dose: 200 mls/hr Documented by: Vancomycin HCl 1,250 mg/ (Dextrose) 250 mls @ 166.667 mls/hr IVPB Q12H [facility]; Protocol Last Admin: 10/26/19 03:23 Dose: 166.667 mls/hr Documented by: Insulin Aspart (Novolog Vial Sliding Scale -) 1 vial SQ Q6HPO [facility]; Protocol Last Admin: 10/26/19 11:20 Dose: 6 units Documented by: Insulin Detemir (Levemir Vial) 46 units SQ 0700,2200 [facility] Last Admin: 10/26/19 06:10 Dose: 46 units Documented by: Lactobacillus Acidophilus (Bacid -) 1 tab GT DAILY [facility] Last Admin: 10/26/19 09:52 Dose: 1 tab Documented by: Levetiracetam (Keppra Oral Solution -) 1,000 mg GT BID [facility] Last Admin: 10/26/19 11:16 Dose: 1,000 mg Documented by: Lisinopril (Prinivil) 5 mg GT DAILY [facility] Last Admin: 10/26/19 10:03 Dose: 5 mg Documented by: Multivitamins/Minerals (Certavite-Antioxidant Liquid) 15 ml GT DAILY [facility] Last Admin: 10/26/19 09:55 Dose: 15 ml Documented by: Nystatin (Nystop Powder -) 1 applic TP BID [facility] Last Admin: 10/26/19 09:54 Dose: 1 applic Documented by: Prednisone (Deltasone -) 5 mg PEG DAILY [facility] Last Admin: 10/26/19 09:55 Dose: 5 mg Documented by: Valproate Sodium (Depakene -) 750 mg GT TID [facility] Last Admin: 10/26/19 05:40 Dose: 750 mg Documented by: - Objective Vital Signs: Vital Signs Temperature 98 F 10/26/19 09:04 Pulse Rate 104 H 10/26/19 09:30 Respiratory Rate 20 10/26/19 09:30 Blood Pressure 145/64 10/26/19 09:30 O2 Sat by Pulse Oximetry (%) 98 10/26/19 09:04 Constitutional: Yes: Well Nourished, No Distress, Calm, Obese Cardiovascular: Yes: Regular Rate and Rhythm Respiratory: Yes: Regular, Mechanically Ventilated, Rhonchi (diffuse) Gastrointestinal: Yes: Normal Bowel Sounds, Soft, Abdomen, Obese Genitourinary: Yes: Robbins Present Musculoskeletal: Yes: WNL Extremities: Yes: Other (generalized atrophy) Edema: Yes Peripheral Pulses WNL: No Neurological: Yes: Pre-Existing Deficit, Other (obtunded) Labs: CBC, BMP 10/26/19 07:15 10/26/19 07:15 INR, PTT INR 1.05 (0.83-1.09) 10/17/19 18:47 Problem List - Problems (1) Metabolic encephalopathy Assessment/Plan: -Cultures: Microbiology 10/17/19 18:40 Blood - Peripheral Venous Blood Culture - Final Proteus Mirabilus - Esbl Produ 10/18/19 18:10 Sputum - Endotrachea Suction/Ventilator Gram Stain - Final 10/18/19 18:10 Sputum - Endotrachea Suction/Ventilator Sputum Culture - Final Proteus Mirabilus - Esbl Produ Mr S Aureus 10/19/19 18:00 Blood - Peripheral Venous Blood Culture - Preliminary NO GROWTH OBTAINED AFTER 48 HOURS, INCUBATION TO CONTINUE FOR 3 DAYS. 10/19/19 17:50 Blood - Peripheral Venous Blood Culture - Preliminary NO GROWTH OBTAINED AFTER 48 HOURS, INCUBATION TO CONTINUE FOR 3 DAYS. 10/17/19 20:36 Urine - Urine - Catheterized Urine Culture - Final Proteus Mirabilus - Esbl Produ 10/18/19 23:00 Decubiti Gram Stain - Final 10/18/19 23:00 Decubiti Wound Culture - Final Proteus Species Lactose Fermenting Neg Bacilli Pseudomonas Species 10/17/19 18:40 Blood - Peripheral Venous Blood Culture - Final Proteus Mirabilus - Esbl Produ 10/18/19 03:30 Urine - Urine Robbins Urine Culture - Final Proteus Mirabilus - Esbl Produ 10/18/19 18:10 Stool Clostridioides difficile Antigen - Final 10/18/19 18:10 Stool Clostridioides difficile Toxin Assay - Final -ID consult -IV meropenem x 2 weeks total, today day #6 -IV vanco Problems reviewed: Yes Code(s): G93.41 - METABOLIC ENCEPHALOPATHY (2) VESTA (acute kidney injury) Assessment/Plan: -Resolved -Nephrology consult -Monitor trend Problems reviewed: Yes Code(s): N17.9 - ACUTE KIDNEY FAILURE, UNSPECIFIED (3) Acute hypercapnic respiratory failure Assessment/Plan: -Pulmonary consult -Mech vent -Failed weaning trial Problems reviewed: Yes Code(s): J96.02 - ACUTE RESPIRATORY FAILURE WITH HYPERCAPNIA (4) Diabetes Assessment/Plan: -BGM Q6H -A1c at 10.9 -ISS -BGM's are now elevated due to change in TF and being on [employer] prednisone -Increase Levemir to 56 U BID -Endocrine consult appreciated Problems reviewed: Yes Code(s): E11.9 - TYPE 2 DIABETES MELLITUS WITHOUT COMPLICATIONS (5) Bacteremia Assessment/Plan: -ID consult -Monitor labs -IV abx-Meropenem + Vanco -Afebrile -LA noted -Repeat BC negative Problems reviewed: Yes Code(s): R78.81 - BACTEREMIA (6) Pneumonia Assessment/Plan: -CXR LLL infiltrate -ID consult -Pulmonary consult -COVID 19 Negative Problems reviewed: Yes Code(s): J18.9 - PNEUMONIA, UNSPECIFIED ORGANISM Qualifiers: Pneumonia type: due to unspecified organism Laterality: unspecified laterality Lung location: unspecified part of lung Qualified Code(s): J18.9 - Pneumonia, unspecified organism (7) MRSA (methicillin resistant staph aureus) culture positive Problems reviewed: Yes Code(s): Z22.322 - CARRIER OR SUSPECTED CARRIER OF METHICILLIN RESIS STAPH (8) Anemia Assessment/Plan: -FANNY -Stool OB negative -B12, thyroid profile unremarkable -S/P 1 U PRBC -Monitor trend -Increased Ferrous sulfate to BID Problems reviewed: Yes Code(s): D64.9 - ANEMIA, UNSPECIFIED (9) Diarrhea Assessment/Plan: -improved -Continue rectal tube -Cdiff negative -On Bacid -Added Bannitrol -AXR unremarkable -GI consult appreciated -Continue TF to Vital 1.2 -Also seen by RD Problems reviewed: Yes Code(s): R19.7 - DIARRHEA, UNSPECIFIED (10) Seizures Assessment/Plan: -Twitching noted in RUE -Seen by Neurology -No changes in Keppra and Depakote -Exacerbated by acute infection? Problems reviewed: Yes Code(s): R56.9 - UNSPECIFIED CONVULSIONS Assessment/Plan See problem list Overall poor prognosis Palliative care on board Daughter wants everything done and LTACH placement when ready for dc COVID 19 PCR in preparation of discharge
--- NOTE | 2019-10-26 12:13 | PN ---
Progress Note (short form) - Note Progress Note: PULMONARY Intermittently opening eyes. Otherwise no change in mental status. NAD on AC mode of vent. 14/400/40/5 No acute events overnight. Trach in place Cardiovascular: Yes: S1, S2 Respiratory: Yes: Mechanically Ventilated, Diminished Gastrointestinal: Yes: Normal Bowel Sounds, Soft Neurological: Yes: Unresponsive Labs/meds/notes/images reviewed noted IMP CHRONIC RESPIRATORY FAILURE S/P CVA WITH THROMBECTOMY UROSEPSIS GRAM NEG BACTEREMIA ? PNEUMONIA ELEVATED LACTATE LEVEL ASHD S/P CABG COPD HTN HLD DIASTOLIC HF SACRAL DECUBITUS VESTA ANEMIA PLAN VENT SUPPORT ON AC MODE IVF ABX PER ID MONITOR LYTES,RENAL FUNCTION, WOUND CARE Anabel GONZALEZ MD
--- NOTE | 2019-10-26 12:14 | PN ---
Progress Note, Physician History of Present Illness: no new events remained afebrile - Current Medication List Current Medications: Active Medications Acetaminophen (Tylenol Oral Solution -) 650 mg GT Q6H PRN PRN Reason: PAIN Last Admin: 10/24/19 14:39 Dose: 650 mg Documented by: Albuterol/Ipratropium (Duoneb -) 1 amp NEB RQID [facility] Last Admin: 10/26/19 08:57 Dose: 1 amp Documented by: Allopurinol (Zyloprim -) 100 mg PEG DAILY [facility] Last Admin: 10/26/19 09:53 Dose: 100 mg Documented by: Amino Acids (Prosource No Carb Liquid Pkt) 30 ml GT BID@0800,1730 [facility] Last Admin: 10/26/19 09:51 Dose: 30 ml Documented by: Amlodipine Besylate (Norvasc -) 5 mg PEG DAILY [facility] Last Admin: 10/26/19 09:53 Dose: 5 mg Documented by: Ascorbic Acid (Vitamin C Oral Solution -) 500 mg GT DAILY [facility] Last Admin: 10/26/19 09:55 Dose: 500 mg Documented by: Atorvastatin Calcium (Lipitor -) 80 mg PEG HS [facility] Last Admin: 10/25/19 21:30 Dose: 80 mg Documented by: Banana Based Medical Food (Banatrol Plus Powder Packet) 1 packet PO TID [facility] Last Admin: 10/26/19 05:40 Dose: 1 packet Documented by: Cholecalciferol (Vitamin D3 -) 1,000 unit GT DAILY [facility] Last Admin: 10/26/19 09:53 Dose: 1,000 unit Documented by: Collagenase (Santyl -) 1 applic TP DAILY [facility]; Protocol Last Admin: 10/26/19 09:59 Dose: Not Given Documented by: Cyanocobalamin (Vitamin B12 -) 1,000 mcg PEG DAILY [facility] Last Admin: 10/26/19 09:57 Dose: 1,000 mcg Documented by: Famotidine (Pepcid) 20 mg PEG DAILY [facility] Last Admin: 10/26/19 09:54 Dose: 20 mg Documented by: Ferrous Sulfate (Feosol) 300 mg GT BID [facility] Last Admin: 10/26/19 09:53 Dose: 300 mg Documented by: Heparin Sodium (Porcine) (Heparin -) 5,000 unit SQ BID [facility] Last Admin: 10/26/19 09:52 Dose: 5,000 unit Documented by: Meropenem 1 gm/ Dextrose 100 mls @ 200 mls/hr IVPB Q8H-IV [facility] Last Admin: 10/26/19 09:58 Dose: 200 mls/hr Documented by: Vancomycin HCl 1,250 mg/ (Dextrose) 250 mls @ 166.667 mls/hr IVPB Q12H [facility]; Protocol Last Admin: 10/26/19 03:23 Dose: 166.667 mls/hr Documented by: Insulin Aspart (Novolog Vial Sliding Scale -) 1 vial SQ Q6HPO [facility]; Protocol Last Admin: 10/26/19 11:20 Dose: 6 units Documented by: Insulin Detemir (Levemir Vial) 46 units SQ 0700,2200 [facility] Last Admin: 10/26/19 06:10 Dose: 46 units Documented by: Lactobacillus Acidophilus (Bacid -) 1 tab GT DAILY [facility] Last Admin: 10/26/19 09:52 Dose: 1 tab Documented by: Levetiracetam (Keppra Oral Solution -) 1,000 mg GT BID [facility] Last Admin: 10/26/19 11:16 Dose: 1,000 mg Documented by: Lisinopril (Prinivil) 5 mg GT DAILY [facility] Last Admin: 10/26/19 10:03 Dose: 5 mg Documented by: Multivitamins/Minerals (Certavite-Antioxidant Liquid) 15 ml GT DAILY [facility] Last Admin: 10/26/19 09:55 Dose: 15 ml Documented by: Nystatin (Nystop Powder -) 1 applic TP BID [facility] Last Admin: 10/26/19 09:54 Dose: 1 applic Documented by: Prednisone (Deltasone -) 5 mg PEG DAILY [facility] Last Admin: 10/26/19 09:55 Dose: 5 mg Documented by: Valproate Sodium (Depakene -) 750 mg GT TID [facility] Last Admin: 10/26/19 05:40 Dose: 750 mg Documented by: - Objective Vital Signs: Vital Signs Temperature 98 F 10/26/19 09:04 Pulse Rate 104 H 10/26/19 09:30 Respiratory Rate 20 10/26/19 09:30 Blood Pressure 145/64 10/26/19 09:30 O2 Sat by Pulse Oximetry (%) 98 10/26/19 09:04 Constitutional: Yes: No Distress, Calm Cardiovascular: Yes: S1, S2 Respiratory: Yes: Regular, CTA Bilaterally Gastrointestinal: Yes: Normal Bowel Sounds, Soft Musculoskeletal: Yes: WNL Labs: CBC, BMP 10/26/19 07:15 10/26/19 07:15 INR, PTT INR 1.05 (0.83-1.09) 10/17/19 18:47 Assessment/Plan Problem List - Problems (1) Gram-negative bacteremia Code(s): R78.81 - BACTEREMIA (2) History of CVA (cerebrovascular accident) Code(s): Z86.73 - PRSNL HX OF TIA (TIA), AND CEREB INFRC W/O RESID DEFICITS (3) CAD (coronary artery disease) Code(s): I25.10 - ATHSCL HEART DISEASE OF [place] CORONARY ARTERY W/O ANG PCTRS (4) Diarrhea Code(s): R19.7 - DIARRHEA, UNSPECIFIED (5) VESTA (acute kidney injury) Code(s): N17.9 - ACUTE KIDNEY FAILURE, UNSPECIFIED (6) Pneumonia Code(s): J18.9 - PNEUMONIA, UNSPECIFIED ORGANISM Qualifiers: Pneumonia type: due to unspecified organism Laterality: unspecified laterality Lung location: unspecified part of lung Qualified Code(s): J18.9 - Pneumonia, unspecified organism (7) Obese Code(s): E66.9 - OBESITY, UNSPECIFIED Qualifiers: Body mass index: BMI 60.0-69.9 (8) UTI (urinary tract infection) Code(s): N39.0 - URINARY TRACT INFECTION, SITE NOT SPECIFIED Qualifiers: Urinary tract infection type: site unspecified Hematuria presence: with hematuria Qualified Code(s): N39.0 - Urinary tract infection, site not specified; R31.9 - Hematuria, unspecified (9) Diabetes Code(s): E11.9 - TYPE 2 DIABETES MELLITUS WITHOUT COMPLICATIONS (10) HTN (hypertension) Code(s): I10 - ESSENTIAL (PRIMARY) HYPERTENSION (11) Hyperlipidemia Code(s): E78.5 - HYPERLIPIDEMIA, UNSPECIFIED (12) S/P CABG (coronary artery bypass graft) Code(s): Z95.1 - PRESENCE OF AORTOCORONARY BYPASS GRAFT (13) COPD (chronic obstructive pulmonary disease) Code(s): J44.9 - CHRONIC OBSTRUCTIVE PULMONARY DISEASE, UNSPECIFIED (14) Decubitus ulcer, stage 4 with infection Code(s): L89.94 - PRESSURE ULCER OF UNSPECIFIED SITE, STAGE 4; L08.9 - LOCAL INFECTION OF THE SKIN AND SUBCUTANEOUS TISSUE, UNSP (15) Lactic acid increased Code(s): E87.2 - ACIDOSIS (16) Metabolic encephalopathy Code(s): G93.41 - METABOLIC ENCEPHALOPATHY (17) Seizures Code(s): R56.9 - UNSPECIFIED CONVULSIONS (18) ESBL (extended spectrum beta-lactamase) producing bacteria infection Code(s): A49.9 - BACTERIAL INFECTION, UNSPECIFIED; Z16.12 - EXTENDED SPECTRUM BETA LACTAMASE (ESBL) RESISTANCE Assessment/Plan Sepsis Gram negative UTI with bacteremia ESBL + bacterial infection HCAP vs VAP Diarrhea Polymicrobial Sacral St IV DU infection/ likely OM Seizures Chronic respiratory failure s/p trach/MV Acute kidney injury Uncontrolled DM Morbid obesity Hx of CVA s/p thrombectomy CAD s/p CABG x 2 COPD Diastolic CHF HTN HLD plan continue abx rest as per the team monitor fevers will check vanco tomorrow
--- NOTE | 2019-10-26 13:23 | PN ---
Progress Note, Physician History of Present Illness: 69 year old female with past medical history of diastolic congestive heart failure, coronary artery disease status post CABG x2, moderate-severe aortic regurgitation, moderate pulmonary HTN, ?hyperparathyroidism, obesity,COPD, IDDM, HTN, HLD, CVA s/p thrombectomy 09/2019 at [facility] with respiratory failure s/p tracheostomy and PEG tube who was sent from [facility] for hyperglycemia and "de hydration". Per NC, blood sugar was in the 400's and BUN 111/creatinine 1.6. and had a normal kidney function in the past. At baseline patient is slow to respond and keeps her eyes closed . - Current Medication List Current Medications: Active Medications Acetaminophen (Tylenol Oral Solution -) 650 mg GT Q6H PRN PRN Reason: PAIN Last Admin: 10/24/19 14:39 Dose: 650 mg Documented by: Albuterol/Ipratropium (Duoneb -) 1 amp NEB RQID [facility] Last Admin: 10/26/19 12:24 Dose: 1 amp Documented by: Allopurinol (Zyloprim -) 100 mg PEG DAILY [facility] Last Admin: 10/26/19 09:53 Dose: 100 mg Documented by: Amino Acids (Prosource No Carb Liquid Pkt) 30 ml GT BID@0800,1730 [facility] Last Admin: 10/26/19 09:51 Dose: 30 ml Documented by: Amlodipine Besylate (Norvasc -) 5 mg PEG DAILY [facility] Last Admin: 10/26/19 09:53 Dose: 5 mg Documented by: Ascorbic Acid (Vitamin C Oral Solution -) 500 mg GT DAILY [facility] Last Admin: 10/26/19 09:55 Dose: 500 mg Documented by: Atorvastatin Calcium (Lipitor -) 80 mg PEG HS [facility] Last Admin: 10/25/19 21:30 Dose: 80 mg Documented by: Banana Based Medical Food (Banatrol Plus Powder Packet) 1 packet PO TID [facility] Last Admin: 10/26/19 05:40 Dose: 1 packet Documented by: Cholecalciferol (Vitamin D3 -) 1,000 unit GT DAILY [facility] Last Admin: 10/26/19 09:53 Dose: 1,000 unit Documented by: Collagenase (Santyl -) 1 applic TP DAILY [facility]; Protocol Last Admin: 10/26/19 09:59 Dose: Not Given Documented by: Cyanocobalamin (Vitamin B12 -) 1,000 mcg PEG DAILY [facility] Last Admin: 10/26/19 09:57 Dose: 1,000 mcg Documented by: Famotidine (Pepcid) 20 mg PEG DAILY [facility] Last Admin: 10/26/19 09:54 Dose: 20 mg Documented by: Ferrous Sulfate (Feosol) 300 mg GT BID [facility] Last Admin: 10/26/19 09:53 Dose: 300 mg Documented by: Heparin Sodium (Porcine) (Heparin -) 5,000 unit SQ BID [facility] Last Admin: 10/26/19 09:52 Dose: 5,000 unit Documented by: Meropenem 1 gm/ Dextrose 100 mls @ 200 mls/hr IVPB Q8H-IV [facility] Last Admin: 10/26/19 09:58 Dose: 200 mls/hr Documented by: Vancomycin HCl 1,250 mg/ (Dextrose) 250 mls @ 166.667 mls/hr IVPB Q12H [facility]; Protocol Last Admin: 10/26/19 03:23 Dose: 166.667 mls/hr Documented by: Insulin Aspart (Novolog Vial Sliding Scale -) 1 vial SQ Q6HPO [facility]; Protocol Last Admin: 10/26/19 11:20 Dose: 6 units Documented by: Insulin Detemir (Levemir Vial) 46 units SQ 0700,2200 [facility] Last Admin: 10/26/19 06:10 Dose: 46 units Documented by: Lactobacillus Acidophilus (Bacid -) 1 tab GT DAILY [facility] Last Admin: 10/26/19 09:52 Dose: 1 tab Documented by: Levetiracetam (Keppra Oral Solution -) 1,000 mg GT BID [facility] Last Admin: 10/26/19 11:16 Dose: 1,000 mg Documented by: Lisinopril (Prinivil) 5 mg GT DAILY [facility] Last Admin: 10/26/19 10:03 Dose: 5 mg Documented by: Multivitamins/Minerals (Certavite-Antioxidant Liquid) 15 ml GT DAILY [facility] Last Admin: 10/26/19 09:55 Dose: 15 ml Documented by: Nystatin (Nystop Powder -) 1 applic TP BID [facility] Last Admin: 10/26/19 09:54 Dose: 1 applic Documented by: Prednisone (Deltasone -) 5 mg PEG DAILY [facility] Last Admin: 10/26/19 09:55 Dose: 5 mg Documented by: Valproate Sodium (Depakene -) 750 mg GT TID [facility] Last Admin: 10/26/19 05:40 Dose: 750 mg Documented by: - Objective Vital Signs: Vital Signs Temperature 98 F 10/26/19 09:04 Pulse Rate 104 H 10/26/19 09:30 Respiratory Rate 20 10/26/19 12:23 Blood Pressure 145/64 10/26/19 09:30 O2 Sat by Pulse Oximetry (%) 98 10/26/19 09:04 Eyes: Yes: WNL, Conjunctiva Clear, EOM Intact HENT: Yes: WNL, Atraumatic, Normocephalic Neck: Yes: WNL, Supple, Trachea Midline Cardiovascular: Yes: WNL, Regular Rate and Rhythm Respiratory: Yes: Diminished, Mechanically Ventilated Gastrointestinal: Yes: WNL, Normal Bowel Sounds Genitourinary: Yes: WNL Musculoskeletal: Yes: WNL Extremities: Yes: WNL Edema: No Integumentary: Yes: WNL ...Motor Strength: WNL Psychiatric: Yes: WNL Labs: CBC, BMP 10/26/19 07:15 10/26/19 07:15 INR, PTT INR 1.05 (0.83-1.09) 10/17/19 18:47 Problem List - Problems (1) VESTA (acute kidney injury) Code(s): N17.9 - ACUTE KIDNEY FAILURE, UNSPECIFIED (2) Anemia Code(s): D64.9 - ANEMIA, UNSPECIFIED (3) Bacteremia Code(s): R78.81 - BACTEREMIA (4) CAD (coronary artery disease) Code(s): I25.10 - ATHSCL HEART DISEASE OF [place] CORONARY ARTERY W/O ANG PCTRS (5) COPD (chronic obstructive pulmonary disease) Code(s): J44.9 - CHRONIC OBSTRUCTIVE PULMONARY DISEASE, UNSPECIFIED (6) Chronic respiratory failure Code(s): J96.10 - CHRONIC RESPIRATORY FAILURE, UNSP W HYPOXIA OR HYPERCAPNIA (7) Decubitus ulcer, stage 4 with infection Code(s): L89.94 - PRESSURE ULCER OF UNSPECIFIED SITE, STAGE 4; L08.9 - LOCAL INFECTION OF THE SKIN AND SUBCUTANEOUS TISSUE, UNSP (8) Diarrhea Code(s): R19.7 - DIARRHEA, UNSPECIFIED (9) ESBL (extended spectrum beta-lactamase) producing bacteria infection Code(s): A49.9 - BACTERIAL INFECTION, UNSPECIFIED; Z16.12 - EXTENDED SPECTRUM BETA LACTAMASE (ESBL) RESISTANCE (10) Gram-negative bacteremia Code(s): R78.81 - BACTEREMIA (11) High glucose Code(s): R73.09 - OTHER ABNORMAL GLUCOSE (12) History of CVA (cerebrovascular accident) Code(s): Z86.73 - PRSNL HX OF TIA (TIA), AND CEREB INFRC W/O RESID DEFICITS (13) Lactic acid increased Code(s): E87.2 - ACIDOSIS (14) MRSA (methicillin resistant staph aureus) culture positive Code(s): Z22.322 - CARRIER OR SUSPECTED CARRIER OF METHICILLIN RESIS STAPH (15) Metabolic encephalopathy Code(s): G93.41 - METABOLIC ENCEPHALOPATHY (16) Pneumonia Code(s): J18.9 - PNEUMONIA, UNSPECIFIED ORGANISM Qualifiers: Pneumonia type: due to unspecified organism Laterality: unspecified laterality Lung location: unspecified part of lung Qualified Code(s): J18.9 - Pneumonia, unspecified organism (17) Seizures Code(s): R56.9 - UNSPECIFIED CONVULSIONS (18) Sepsis Code(s): A41.9 - SEPSIS, UNSPECIFIED ORGANISM (19) ACS (acute coronary syndrome) Code(s): I24.9 - ACUTE ISCHEMIC HEART DISEASE, UNSPECIFIED (20) Acute hypercapnic respiratory failure Code(s): J96.02 - ACUTE RESPIRATORY FAILURE WITH HYPERCAPNIA (21) Acute pain of left foot Code(s): M79.672 - PAIN IN LEFT FOOT (22) Bursitis of hip Code(s): M70.70 - OTHER BURSITIS OF HIP, UNSPECIFIED HIP (23) CHF exacerbation Code(s): I50.9 - HEART FAILURE, UNSPECIFIED Qualifiers: Heart failure type: unspecified Qualified Code(s): I50.9 - Heart failure, unspecified (24) COPD exacerbation Code(s): J44.1 - CHRONIC OBSTRUCTIVE PULMONARY DISEASE W (ACUTE) EXACERBATION (25) Cellulitis Code(s): L03.90 - CELLULITIS, UNSPECIFIED Qualifiers: Site of cellulitis: extremity Site of cellulitis of extremity: toe (26) Chest pain Code(s): R07.9 - CHEST PAIN, UNSPECIFIED (27) Depression Code(s): F32.9 - MAJOR DEPRESSIVE DISORDER, SINGLE EPISODE, UNSPECIFIED (28) Dysphagia Code(s): R13.10 - DYSPHAGIA, UNSPECIFIED Qualifiers: Dysphagia type: unspecified Qualified Code(s): R13.10 - Dysphagia, unspecified (29) Fall Code(s): W19.XXXA - UNSPECIFIED FALL, INITIAL ENCOUNTER Qualifiers: Encounter type: initial encounter Qualified Code(s): W19.XXXA - Unspecified fall, initial encounter (30) Foot fracture, left Code(s): S92.902A - UNSP FRACTURE OF LEFT FOOT, INIT ENCNTR FOR CLOSED FRACTURE Qualifiers: Encounter type: initial encounter Fracture type: closed Qualified Code(s): S92.902A - Unspecified fracture of left foot, initial encounter for closed fracture (31) Gout Code(s): M10.9 - GOUT, UNSPECIFIED Qualifiers: Gout site: toe Gout etiology: idiopathic Chronicity: acute Laterality: left Qualified Code(s): M10.072 - Idiopathic gout, left ankle and foot (32) Head trauma Code(s): S09.90XA - UNSPECIFIED INJURY OF HEAD, INITIAL ENCOUNTER Qualifiers: Encounter type: initial encounter Qualified Code(s): S09.90XA - Unspecified injury of head, initial encounter (33) Hearing loss Code(s): H91.90 - UNSPECIFIED HEARING LOSS, UNSPECIFIED EAR Qualifiers: Hearing loss type: presbycusis Laterality: bilateral Qualified Code(s): H91.13 - Presbycusis, bilateral (34) Hypomagnesemia Code(s): E83.42 - HYPOMAGNESEMIA (35) Need for tetanus booster Code(s): Z23 - ENCOUNTER FOR IMMUNIZATION (36) Obese Code(s): E66.9 - OBESITY, UNSPECIFIED Qualifiers: Body mass index: BMI 60.0-69.9 (37) Right calf pain Code(s): M79.661 - PAIN IN RIGHT LOWER LEG (38) SOB (shortness of breath) Code(s): R06.02 - SHORTNESS OF BREATH (39) Sedentary lifestyle Code(s): Z91.89 - OTH PERSONAL RISK FACTORS, NOT ELSEWHERE CLASSIFIED (40) Sleep apnea Code(s): G47.30 - SLEEP APNEA, UNSPECIFIED (41) Stroke Code(s): I63.9 - CEREBRAL INFARCTION, UNSPECIFIED Qualifiers: CVA mechanism: thrombosis Precerebral and cerebral artery: middle cerebral artery Laterality of affected vessel: right Qualified Code(s): I63.311 - Cerebral infarction due to thrombosis of right middle cerebral artery (42) Throat pain Code(s): R07.0 - PAIN IN THROAT (43) Tooth pain Code(s): K08.8 - OTHER SPECIFIED DISORDERS OF TEETH AND SUPPOR * DO NOT USE * (44) UTI (urinary tract infection) Code(s): N39.0 - URINARY TRACT INFECTION, SITE NOT SPECIFIED Qualifiers: Urinary tract infection type: site unspecified Hematuria presence: with hematuria Qualified Code(s): N39.0 - Urinary tract infection, site not specified; R31.9 - Hematuria, unspecified (45) Weakness Code(s): R53.1 - WEAKNESS (46) Arteriosclerotic heart disease (ASHD) Code(s): I25.10 - ATHSCL HEART DISEASE OF [place] CORONARY ARTERY W/O ANG PCTRS (47) DVT prophylaxis Code(s): [id number] - (48) Diabetes Code(s): E11.9 - TYPE 2 DIABETES MELLITUS WITHOUT COMPLICATIONS (49) HTN (hypertension) Code(s): I10 - ESSENTIAL (PRIMARY) HYPERTENSION (50) Hyperlipidemia Code(s): E78.5 - HYPERLIPIDEMIA, UNSPECIFIED (51) S/P CABG (coronary artery bypass graft) Code(s): Z95.1 - PRESENCE OF AORTOCORONARY BYPASS GRAFT Assessment/Plan Plan: On amllodipine and lisinopril (low-normal systolic/diastolic CHF; HTN; DM). ABX resp support per pulmonary DVT plx wound care F/u BUn/Cr, electrolytes, daily weight, Is and Os.
--- NOTE | 2019-10-26 15:17 | PN ---
Progress Note, Physician History of Present Illness: Pt seen and examined at bedside. She remains lethargic. - Current Medication List Current Medications: Active Medications Acetaminophen (Tylenol Oral Solution -) 650 mg GT Q6H PRN PRN Reason: PAIN Last Admin: 10/24/19 14:39 Dose: 650 mg Documented by: Albuterol/Ipratropium (Duoneb -) 1 amp NEB RQID [facility] Last Admin: 10/26/19 12:24 Dose: 1 amp Documented by: Allopurinol (Zyloprim -) 100 mg PEG DAILY [facility] Last Admin: 10/26/19 09:53 Dose: 100 mg Documented by: Amino Acids (Prosource No Carb Liquid Pkt) 30 ml GT BID@0800,1730 [facility] Last Admin: 10/26/19 09:51 Dose: 30 ml Documented by: Amlodipine Besylate (Norvasc -) 5 mg PEG DAILY [facility] Last Admin: 10/26/19 09:53 Dose: 5 mg Documented by: Ascorbic Acid (Vitamin C Oral Solution -) 500 mg GT DAILY [facility] Last Admin: 10/26/19 09:55 Dose: 500 mg Documented by: Atorvastatin Calcium (Lipitor -) 80 mg PEG HS [facility] Last Admin: 10/25/19 21:30 Dose: 80 mg Documented by: Banana Based Medical Food (Banatrol Plus Powder Packet) 1 packet PO TID [facility] Last Admin: 10/26/19 13:52 Dose: 1 packet Documented by: Cholecalciferol (Vitamin D3 -) 1,000 unit GT DAILY [facility] Last Admin: 10/26/19 09:53 Dose: 1,000 unit Documented by: Collagenase (Santyl -) 1 applic TP DAILY [facility]; Protocol Last Admin: 10/26/19 09:59 Dose: Not Given Documented by: Cyanocobalamin (Vitamin B12 -) 1,000 mcg PEG DAILY [facility] Last Admin: 10/26/19 09:57 Dose: 1,000 mcg Documented by: Famotidine (Pepcid) 20 mg PEG DAILY [facility] Last Admin: 10/26/19 09:54 Dose: 20 mg Documented by: Ferrous Sulfate (Feosol) 300 mg GT BID [facility] Last Admin: 10/26/19 09:53 Dose: 300 mg Documented by: Heparin Sodium (Porcine) (Heparin -) 5,000 unit SQ BID [facility] Last Admin: 10/26/19 09:52 Dose: 5,000 unit Documented by: Meropenem 1 gm/ Dextrose 100 mls @ 200 mls/hr IVPB Q8H-IV [facility] Last Admin: 10/26/19 09:58 Dose: 200 mls/hr Documented by: Vancomycin HCl 1,250 mg/ (Dextrose) 250 mls @ 166.667 mls/hr IVPB Q12H [facility]; Protocol Last Admin: 10/26/19 15:00 Dose: 166.667 mls/hr Documented by: Insulin Aspart (Novolog Vial Sliding Scale -) 1 vial SQ Q6HPO [facility]; Protocol Last Admin: 10/26/19 11:20 Dose: 6 units Documented by: Insulin Detemir (Levemir Vial) 46 units SQ 0700,2200 [facility] Last Admin: 10/26/19 06:10 Dose: 46 units Documented by: Lactobacillus Acidophilus (Bacid -) 1 tab GT DAILY [facility] Last Admin: 10/26/19 09:52 Dose: 1 tab Documented by: Levetiracetam (Keppra Oral Solution -) 1,000 mg GT BID [facility] Last Admin: 10/26/19 11:16 Dose: 1,000 mg Documented by: Lisinopril (Prinivil) 5 mg GT DAILY [facility] Last Admin: 10/26/19 10:03 Dose: 5 mg Documented by: Multivitamins/Minerals (Certavite-Antioxidant Liquid) 15 ml GT DAILY [facility] Last Admin: 10/26/19 09:55 Dose: 15 ml Documented by: Nystatin (Nystop Powder -) 1 applic TP BID [facility] Last Admin: 10/26/19 09:54 Dose: 1 applic Documented by: Prednisone (Deltasone -) 5 mg PEG DAILY [facility] Last Admin: 10/26/19 09:55 Dose: 5 mg Documented by: Valproate Sodium (Depakene -) 750 mg GT TID [facility] Last Admin: 10/26/19 05:40 Dose: 750 mg Documented by: - Objective Vital Signs: Vital Signs Temperature 9898.8 F H 10/26/19 13:59 Pulse Rate 90 10/26/19 13:59 Respiratory Rate 16 10/26/19 13:59 Blood Pressure 130/72 10/26/19 13:59 O2 Sat by Pulse Oximetry (%) 98 10/26/19 13:59 Constitutional: Yes: Calm Eyes: Yes: Conjunctiva Clear HENT: Yes: Atraumatic Neck: Yes: Supple Cardiovascular: Yes: S1, S2 Respiratory: Yes: Mechanically Ventilated Gastrointestinal: Yes: Normal Bowel Sounds, Soft, Abdomen, Obese Genitourinary: Yes: Incontinence Edema: No Neurological: Yes: Pre-Existing Deficit Labs: CBC, BMP 10/26/19 07:15 10/26/19 07:15 INR, PTT INR 1.05 (0.83-1.09) 10/17/19 18:47 Assessment/Plan Current Medications Generic Name Dose Route Start Last Admin Trade Name Freq PRN Reason Stop Dose Admin Acetaminophen 650 mg 10/18/19 12:21 10/24/19 14:39 Tylenol Oral Solution - GT 650 mg Q6H PRN Administration PAIN Albuterol/Ipratropium 1 amp 10/18/19 08:00 10/26/19 12:24 Duoneb - NEB 1 amp RQID [facility] Administration Allopurinol 100 mg 10/18/19 10:00 10/26/19 09:53 Zyloprim - PEG 100 mg DAILY [facility] Administration Amino Acids 30 ml 10/24/19 08:00 10/26/19 09:51 Prosource No Carb Liquid Pkt GT 30 ml BID@0800,1730 [facility] Administration Amlodipine Besylate 5 mg 10/18/19 10:00 10/26/19 09:53 Norvasc - PEG 5 mg DAILY [facility] Administration Ascorbic Acid 500 mg 10/18/19 13:00 10/26/19 09:55 Vitamin C Oral Solution - GT 500 mg DAILY [facility] Administration Atorvastatin Calcium 80 mg 10/18/19 22:00 10/25/19 21:30 Lipitor - PEG 80 mg HS [facility] Administration Banana Based Medical Food 1 packet 10/22/19 14:00 10/26/19 13:52 Banatrol Plus Powder Packet PO 1 packet TID [facility] Administration Cholecalciferol 1,000 unit 10/20/19 07:36 10/26/19 09:53 Vitamin D3 - GT 1,000 unit DAILY [facility] Administration Collagenase 1 applic 10/18/19 13:00 10/26/19 09:59 Santyl - TP Not Given DAILY [facility] Protocol Cyanocobalamin 1,000 mcg 10/20/19 07:36 10/26/19 09:57 Vitamin B12 - PEG 1,000 mcg DAILY [facility] Administration Famotidine 20 mg 10/25/19 10:00 10/26/19 09:54 Pepcid PEG 20 mg DAILY [facility] Administration Ferrous Sulfate 300 mg 10/22/19 22:00 10/26/19 09:53 Feosol GT 300 mg BID [facility] Administration Heparin Sodium (Porcine) 5,000 unit 10/18/19 22:15 10/26/19 09:52 Heparin - SQ 5,000 unit BID [facility] Administration Meropenem 1 gm/ Dextrose 100 mls @ 200 mls/hr 10/20/19 18:00 10/26/19 09:58 IVPB 200 mls/hr Q8H-IV [facility] Administration Vancomycin HCl 1,250 mg/ 250 mls @ 166.667 mls/hr 10/24/19 16:00 10/26/19 15:00 Dextrose IVPB 166.667 mls/hr Q12H [facility] Administration Protocol Insulin Aspart 1 vial 10/21/19 01:05 10/26/19 11:20 Novolog Vial Sliding Scale - SQ 6 units Q6HPO [facility] Administration Protocol Insulin Detemir 46 units 10/25/19 22:00 10/26/19 06:10 Levemir Vial SQ 46 units 0700,2200 [facility] Administration Lactobacillus Acidophilus 1 tab 10/20/19 17:00 10/26/19 09:52 Bacid - GT 1 tab DAILY [facility] Administration Levetiracetam 1,000 mg 10/18/19 12:30 10/26/19 11:16 Keppra Oral Solution - GT 1,000 mg BID [facility] Administration Lisinopril 5 mg 10/25/19 10:00 10/26/19 10:03 Prinivil GT 5 mg DAILY [facility] Administration Multivitamins/Minerals 15 ml 10/18/19 12:30 10/26/19 09:55 Certavite-Antioxidant Liquid GT 15 ml DAILY [facility] Administration Nystatin 1 applic 10/18/19 12:30 10/26/19 09:54 Nystop Powder - TP 1 applic BID [facility] Administration Prednisone 5 mg 10/18/19 10:00 10/26/19 09:55 Deltasone - PEG 5 mg DAILY [facility] Administration Valproate Sodium 750 mg 10/18/19 14:00 10/26/19 05:40 Depakene - GT 750 mg TID [facility] Administration Impression 1. VESTA 2. DM 3. hypernatremia 4. resp failure 5. cva 6. copd 7. htn Plan - cont feeds - control blood sugar - hold off fluids - cont vent support - corrected sodium is normal
[2019-10-26] MEDS ORDERED: PT OWN MED DRAWER 7, Y5N ONE (21:36)
[2019-10-26] MEDS: ATORVASTATIN CA 80 MG TABLET (FP) PEG SCH (21:39)
[2019-10-27] MEDS ORDERED: MEROPENEM 1 GM VIAL (RESTRICTED TO ID) IVPB ONE ×3 (01:14→17:21)
[2019-10-27] MEDS ORDERED: DEXTROSE 5%-WATER 100 ML IVPB ONE ×3 (01:14→17:21)
[2019-10-27] MEDS: MEROPENEM 1 GM in DEXTROSE 5%-WATER 100 ML IVPB SCH ×3 (01:47→17:26)
[2019-10-27] MEDS: VANCOMYCIN 1,250 MG in DEXTROSE 5%-WATER - 250 ML IVPB SCH ×2 (03:34→18:41)
[2019-10-27] MEDS: INSULIN SLIDING SCALE (NOVOLOG) 1 VIAL SQ SCH ×3 (05:53→17:24)
[2019-10-27] MEDS: VALPROATE SODIUM 250 MG/5 ML UNIT DOSE CUP GT SCH ×3 (05:53→21:46)
[2019-10-27] MEDS: BANATROL PLUS POWDER PACKET PO SCH ×3 (05:53→21:46)
[2019-10-27] MEDS: INSULIN (LEVEMIR) 100 UNITS/ML UNITS SQ SCH ×3 (06:05→21:47)
[2019-10-27] MEDS ORDERED: INSULIN (NOVOLOG) ASPART 100 UNITS/ML 10ML VIAL ONE ×2 (06:30→11:22)
[2019-10-27] MEDS: ALBUTEROL SO4 2.5/IPRATROPIUM 0.5 INH SOL 3 ML VIAL.NEB. NEB SCH ×4 (08:10→20:46)
[2019-10-27] MEDS ORDERED: PT OWN MED DRAWER 7, Y5N ONE ×4 (09:15→21:36)
[2019-10-27] MEDS: levETIRAcetam 500 MG/5 ML ORAL SOLUTION (UNIT-DOSE CUPS) GT SCH ×2 (09:28→21:46)
[2019-10-27] MEDS: FERROUS SO4 300 MG/5 ML ORAL SOLN UNIT DOSE CUPS GT SCH ×2 (09:29→21:46)
[2019-10-27] MEDS: MULTIVIT-MINERALS ORAL LIQUID GT SCH (09:29)
[2019-10-27] MEDS: ALLOPURINOL 100 MG TABLET (FP) PEG SCH (09:29)
[2019-10-27] MEDS: LACTOBACILLUS ACIDOPHILUS 1 TABLET GT SCH (09:29)
[2019-10-27] MEDS: CHOLECALCIFEROL (VIT D3) 1,000 UNIT (25 MCG) TABLET GT SCH (09:29)
[2019-10-27] MEDS: amLODIPine BESYLATE 5 MG TABLET (FP) PEG SCH (09:29)
[2019-10-27] MEDS: CYANOCOBALAMIN 1,000 MCG TABLET (FP) PEG SCH (09:30)
[2019-10-27] MEDS: HEPARIN NA (PORCINE) 5,000 UNITS/ML 1ML VIAL SQ SCH ×2 (09:30→21:47)
[2019-10-27] MEDS: ASCORBIC ACID 500 MG/5 ML UNIT DOSE CUP GT SCH (09:30)
[2019-10-27] MEDS: predniSONE 5 MG TABLET (UD) PEG SCH (09:31)
[2019-10-27] MEDS: NYSTATIN POWDER 100,000 UNITS/GM - 15 GM TOPICAL POWDER TP SCH ×2 (09:31→21:47)
[2019-10-27] MEDS: FAMOTIDINE 40 MG/5 ML ORAL SUSPENSION PEG SCH (09:31)
[2019-10-27] MEDS: LISINOPRIL 5 MG TABLET (FP) GT SCH (09:31)
[2019-10-27] MEDS: COLLAGENASE CLOSTRIDIUM HIST. 30 GRAMS TUBE TP SCH (09:32)
[2019-10-27] MEDS: AMINO ACIDS/PROTEIN HYDROLYS 30 ML LIQUID.PKT GT SCH ×2 (09:35→17:26)
[2019-10-27] MEDS: ACETAMINOPHEN 650 MG/20.3 ML ORAL SOLUTION (CUPS) GT PRN (09:36)
--- NOTE | 2019-10-27 09:44 | PN ---
Progress Note, Physician Chief Complaint: Hyperglycemia Dehydration VESTA History of Present Illness: NAD obtunded Mech vented Remains febrile LA elevated On IV abx On rectal tube- continues to have diarrhea Seen by GI- Day # 6 of meropenem Day 3 of Vancomycin - Current Medication List Current Medications: Active Medications Acetaminophen (Tylenol Oral Solution -) 650 mg GT Q6H PRN PRN Reason: PAIN Last Admin: 10/27/19 09:36 Dose: 650 mg Documented by: Albuterol/Ipratropium (Duoneb -) 1 amp NEB RQID [facility] Last Admin: 10/27/19 08:10 Dose: 1 amp Documented by: Allopurinol (Zyloprim -) 100 mg PEG DAILY [facility] Last Admin: 10/27/19 09:29 Dose: 100 mg Documented by: Amino Acids (Prosource No Carb Liquid Pkt) 30 ml GT BID@0800,1730 [facility] Last Admin: 10/27/19 09:35 Dose: 30 ml Documented by: Amlodipine Besylate (Norvasc -) 5 mg PEG DAILY [facility] Last Admin: 10/27/19 09:29 Dose: 5 mg Documented by: Ascorbic Acid (Vitamin C Oral Solution -) 500 mg GT DAILY [facility] Last Admin: 10/27/19 09:30 Dose: 500 mg Documented by: Atorvastatin Calcium (Lipitor -) 80 mg PEG HS [facility] Last Admin: 10/26/19 21:39 Dose: 80 mg Documented by: Banana Based Medical Food (Banatrol Plus Powder Packet) 1 packet PO TID [facility] Last Admin: 10/27/19 05:53 Dose: 1 packet Documented by: Cholecalciferol (Vitamin D3 -) 1,000 unit GT DAILY [facility] Last Admin: 10/27/19 09:29 Dose: 1,000 unit Documented by: Collagenase (Santyl -) 1 applic TP DAILY [facility]; Protocol Last Admin: 10/27/19 09:32 Dose: Not Given Documented by: Cyanocobalamin (Vitamin B12 -) 1,000 mcg PEG DAILY [facility] Last Admin: 10/27/19 09:30 Dose: 1,000 mcg Documented by: Famotidine (Pepcid) 20 mg PEG DAILY [facility] Last Admin: 10/27/19 09:31 Dose: 20 mg Documented by: Ferrous Sulfate (Feosol) 300 mg GT BID [facility] Last Admin: 10/27/19 09:29 Dose: 300 mg Documented by: Heparin Sodium (Porcine) (Heparin -) 5,000 unit SQ BID [facility] Last Admin: 10/27/19 09:30 Dose: 5,000 unit Documented by: Meropenem 1 gm/ Dextrose 100 mls @ 200 mls/hr IVPB Q8H-IV [facility] Last Admin: 10/27/19 09:28 Dose: 200 mls/hr Documented by: Vancomycin HCl 1,250 mg/ (Dextrose) 250 mls @ 166.667 mls/hr IVPB Q12H [facility]; Protocol Last Admin: 10/27/19 03:34 Dose: 166.667 mls/hr Documented by: Insulin Aspart (Novolog Vial Sliding Scale -) 1 vial SQ Q6HPO [facility]; Protocol Last Admin: 10/27/19 05:53 Dose: 7 units Documented by: Insulin Detemir (Levemir Vial) 56 units SQ 0700,2200 [facility] Last Admin: 10/27/19 06:05 Dose: 56 units Documented by: Lactobacillus Acidophilus (Bacid -) 1 tab GT DAILY [facility] Last Admin: 10/27/19 09:29 Dose: 1 tab Documented by: Levetiracetam (Keppra Oral Solution -) 1,000 mg GT BID [facility] Last Admin: 10/27/19 09:28 Dose: 1,000 mg Documented by: Lisinopril (Prinivil) 5 mg GT DAILY [facility] Last Admin: 10/27/19 09:31 Dose: 5 mg Documented by: Multivitamins/Minerals (Certavite-Antioxidant Liquid) 15 ml GT DAILY [facility] Last Admin: 10/27/19 09:29 Dose: 15 ml Documented by: Nystatin (Nystop Powder -) 1 applic TP BID [facility] Last Admin: 10/27/19 09:31 Dose: 1 applic Documented by: Prednisone (Deltasone -) 5 mg PEG DAILY [facility] Last Admin: 10/27/19 09:31 Dose: 5 mg Documented by: Valproate Sodium (Depakene -) 750 mg GT TID [facility] Last Admin: 10/27/19 05:53 Dose: 750 mg Documented by: - Objective Vital Signs: Vital Signs Temperature 97.7 F 10/27/19 06:00 Pulse Rate 96 H 10/27/19 08:10 Respiratory Rate 20 10/27/19 08:10 Blood Pressure 137/63 10/27/19 06:00 O2 Sat by Pulse Oximetry (%) 98 10/27/19 08:10 Constitutional: Yes: Well Nourished, No Distress, Calm Cardiovascular: Yes: Regular Rate and Rhythm Respiratory: Yes: Regular, Mechanically Ventilated, Rhonchi (diffuse) Gastrointestinal: Yes: Normal Bowel Sounds, Soft Genitourinary: Yes: Robbins Present Musculoskeletal: Yes: Muscle Weakness Extremities: Yes: Other (generalized atrophy) Edema: No Peripheral Pulses WNL: Yes Neurological: Yes: Lethargy Labs: CBC, BMP 10/26/19 07:15 10/26/19 07:15 INR, PTT INR 1.05 (0.83-1.09) 10/17/19 18:47 Problem List - Problems (1) Metabolic encephalopathy Assessment/Plan: -Cultures: Microbiology 10/17/19 18:40 Blood - Peripheral Venous Blood Culture - Final Proteus Mirabilus - Esbl Produ 10/18/19 18:10 Sputum - Endotrachea Suction/Ventilator Gram Stain - Final 10/18/19 18:10 Sputum - Endotrachea Suction/Ventilator Sputum Culture - Final Proteus Mirabilus - Esbl Produ Mr S Aureus 10/19/19 18:00 Blood - Peripheral Venous Blood Culture - Preliminary NO GROWTH OBTAINED AFTER 48 HOURS, INCUBATION TO CO NTINUE FOR 3 DAYS. 10/19/19 17:50 Blood - Peripheral Venous Blood Culture - Preliminary NO GROWTH OBTAINED AFTER 48 HOURS, INCUBATION TO CON TINUE FOR 3 DAYS. 10/17/19 20:36 Urine - Urine - Catheterized Urine Culture - Final Proteus Mirabilus - Esbl Produ 10/18/19 23:00 Decubiti Gram Stain - Final 10/18/19 23:00 Decubiti Wound Culture - Final Proteus Species Lactose Fermenting Neg Bacilli Pseudomonas Species 10/17/19 18:40 Blood - Peripheral Venous Blood Culture - Final Proteus Mirabilus - Esbl Produ 10/18/19 03:30 Urine - Urine Robbins Urine Culture - Final Proteus Mirabilus - Esbl Produ 10/18/19 18:10 Stool Clostridioides difficile Antigen - Final 10/18/19 18:10 Stool Clostridioides difficile Toxin Assay - Final -ID consult -IV meropenem x 2 weeks total, today day #6 -IV vanco Problems reviewed: Yes Code(s): G93.41 - METABOLIC ENCEPHALOPATHY (2) VESTA (acute kidney injury) Assessment/Plan: -Resolved -Nephrology consult -Monitor trend Problems reviewed: Yes Code(s): N17.9 - ACUTE KIDNEY FAILURE, UNSPECIFIED (3) Acute hypercapnic respiratory failure Assessment/Plan: -Pulmonary consult -Mech vent -Failed weaning trial Problems reviewed: Yes Code(s): J96.02 - ACUTE RESPIRATORY FAILURE WITH HYPERCAPNIA (4) Diabetes Assessment/Plan: -BGM Q6H -A1c at 10.9 -ISS -BGM's are now elevated due to change in TF and 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 -Increase Levemir to 56 U BID -Endocrine consult appreciated Problems reviewed: Yes Code(s): E11.9 - TYPE 2 DIABETES MELLITUS WITHOUT COMPLICATIONS (5) Bacteremia Assessment/Plan: -ID consult -Monitor labs -IV abx-Meropenem + Vanco -Afebrile -LA noted -Repeat BC negative Problems reviewed: Yes Code(s): R78.81 - BACTEREMIA (6) Pneumonia Assessment/Plan: -CXR LLL infiltrate -ID consult -Pulmonary consult -COVID 19 Negative Problems reviewed: Yes Code(s): J18.9 - PNEUMONIA, UNSPECIFIED ORGANISM Qualifiers: Pneumonia type: due to unspecified organism Laterality: unspecified laterality Lung location: unspecified part of lung Qualified Code(s): J18.9 - Pneumonia, unspecified organism (7) MRSA (methicillin resistant staph aureus) culture positive Problems reviewed: Yes Code(s): Z22.322 - CARRIER OR SUSPECTED CARRIER OF METHICILLIN RESIS STAPH (8) Anemia Assessment/Plan: -FANNY -Stool OB negative -B12, thyroid profile unremarkable -S/P 1 U PRBC -Monitor trend -Increased Ferrous sulfate to BID Problems reviewed: Yes Code(s): D64.9 - ANEMIA, UNSPECIFIED (9) Diarrhea Assessment/Plan: -improved -Continue rectal tube -Cdiff negative -On Bacid -Added Bannitrol -AXR unremarkable -GI consult appreciated -Continue TF to Vital 1.2 -Also seen by RD Problems reviewed: Yes Code(s): R19.7 - DIARRHEA, UNSPECIFIED (10) Seizures Assessment/Plan: -Twitching noted in RUE -Seen by Neurology -No changes in Keppra and Depakote -Exacerbated by acute infection? Problems reviewed: Yes Code(s): R56.9 - UNSPECIFIED CONVULSIONS Assessment/Plan See problem list Overall poor prognosis Palliative care on board Daughter wants everything done and LTACH placement when ready for dc COVID 19 PCR in preparation of discharge
--- NOTE | 2019-10-27 10:43 | PN ---
Progress Note, Physician History of Present Illness: no new events remained afebrile - Current Medication List Current Medications: Active Medications Acetaminophen (Tylenol Oral Solution -) 650 mg GT Q6H PRN PRN Reason: PAIN Last Admin: 10/27/19 09:36 Dose: 650 mg Documented by: Albuterol/Ipratropium (Duoneb -) 1 amp NEB RQID [facility] Last Admin: 10/27/19 08:10 Dose: 1 amp Documented by: Allopurinol (Zyloprim -) 100 mg PEG DAILY [facility] Last Admin: 10/27/19 09:29 Dose: 100 mg Documented by: Amino Acids (Prosource No Carb Liquid Pkt) 30 ml GT BID@0800,1730 [facility] Last Admin: 10/27/19 09:35 Dose: 30 ml Documented by: Amlodipine Besylate (Norvasc -) 5 mg PEG DAILY [facility] Last Admin: 10/27/19 09:29 Dose: 5 mg Documented by: Ascorbic Acid (Vitamin C Oral Solution -) 500 mg GT DAILY [facility] Last Admin: 10/27/19 09:30 Dose: 500 mg Documented by: Atorvastatin Calcium (Lipitor -) 80 mg PEG HS [facility] Last Admin: 10/26/19 21:39 Dose: 80 mg Documented by: Banana Based Medical Food (Banatrol Plus Powder Packet) 1 packet PO TID [facility] Last Admin: 10/27/19 05:53 Dose: 1 packet Documented by: Cholecalciferol (Vitamin D3 -) 1,000 unit GT DAILY [facility] Last Admin: 10/27/19 09:29 Dose: 1,000 unit Documented by: Collagenase (Santyl -) 1 applic TP DAILY [facility]; Protocol Last Admin: 10/27/19 09:32 Dose: Not Given Documented by: Cyanocobalamin (Vitamin B12 -) 1,000 mcg PEG DAILY [facility] Last Admin: 10/27/19 09:30 Dose: 1,000 mcg Documented by: Famotidine (Pepcid) 20 mg PEG DAILY [facility] Last Admin: 10/27/19 09:31 Dose: 20 mg Documented by: Ferrous Sulfate (Feosol) 300 mg GT BID [facility] Last Admin: 10/27/19 09:29 Dose: 300 mg Documented by: Heparin Sodium (Porcine) (Heparin -) 5,000 unit SQ BID [facility] Last Admin: 10/27/19 09:30 Dose: 5,000 unit Documented by: Meropenem 1 gm/ Dextrose 100 mls @ 200 mls/hr IVPB Q8H-IV [facility] Last Admin: 10/27/19 09:28 Dose: 200 mls/hr Documented by: Vancomycin HCl 1,250 mg/ (Dextrose) 250 mls @ 166.667 mls/hr IVPB Q12H [facility]; Protocol Last Admin: 10/27/19 03:34 Dose: 166.667 mls/hr Documented by: Insulin Aspart (Novolog Vial Sliding Scale -) 1 vial SQ Q6HPO [facility]; Protocol Last Admin: 10/27/19 05:53 Dose: 7 units Documented by: Insulin Detemir (Levemir Vial) 56 units SQ 0700,2200 [facility] Last Admin: 10/27/19 06:05 Dose: 56 units Documented by: Lactobacillus Acidophilus (Bacid -) 1 tab GT DAILY [facility] Last Admin: 10/27/19 09:29 Dose: 1 tab Documented by: Levetiracetam (Keppra Oral Solution -) 1,000 mg GT BID [facility] Last Admin: 10/27/19 09:28 Dose: 1,000 mg Documented by: Lisinopril (Prinivil) 5 mg GT DAILY [facility] Last Admin: 10/27/19 09:31 Dose: 5 mg Documented by: Multivitamins/Minerals (Certavite-Antioxidant Liquid) 15 ml GT DAILY [facility] Last Admin: 10/27/19 09:29 Dose: 15 ml Documented by: Nystatin (Nystop Powder -) 1 applic TP BID [facility] Last Admin: 10/27/19 09:31 Dose: 1 applic Documented by: Prednisone (Deltasone -) 5 mg PEG DAILY [facility] Last Admin: 10/27/19 09:31 Dose: 5 mg Documented by: Valproate Sodium (Depakene -) 750 mg GT TID [facility] Last Admin: 10/27/19 05:53 Dose: 750 mg Documented by: - Objective Vital Signs: Vital Signs Temperature 99.3 F 10/27/19 09:43 Pulse Rate 84 10/27/19 09:43 Respiratory Rate 17 10/27/19 09:43 Blood Pressure 144/85 10/27/19 09:43 O2 Sat by Pulse Oximetry (%) 95 10/27/19 09:43 Constitutional: Yes: No Distress, Calm Cardiovascular: Yes: S1, S2 Respiratory: Yes: Regular, Other Gastrointestinal: Yes: Normal Bowel Sounds, Soft Musculoskeletal: Yes: WNL Extremities: Yes: Other Neurological: Yes: Other Psychiatric: Yes: Other Labs: CBC, BMP 10/26/19 07:15 10/26/19 07:15 INR, PTT INR 1.05 (0.83-1.09) 10/17/19 18:47 Assessment/Plan Problem List - Problems (1) Gram-negative bacteremia Code(s): R78.81 - BACTEREMIA (2) History of CVA (cerebrovascular accident) Code(s): Z86.73 - PRSNL HX OF TIA (TIA), AND CEREB INFRC W/O RESID DEFICITS (3) CAD (coronary artery disease) Code(s): I25.10 - ATHSCL HEART DISEASE OF [place] CORONARY ARTERY W/O ANG PCTRS (4) Diarrhea Code(s): R19.7 - DIARRHEA, UNSPECIFIED (5) VESTA (acute kidney injury) Code(s): N17.9 - ACUTE KIDNEY FAILURE, UNSPECIFIED (6) Pneumonia Code(s): J18.9 - PNEUMONIA, UNSPECIFIED ORGANISM Qualifiers: Pneumonia type: due to unspecified organism Laterality: unspecified laterality Lung location: unspecified part of lung Qualified Code(s): J18.9 - Pneumonia, unspecified organism (7) Obese Code(s): E66.9 - OBESITY, UNSPECIFIED Qualifiers: Body mass index: BMI 60.0-69.9 (8) UTI (urinary tract infection) Code(s): N39.0 - URINARY TRACT INFECTION, SITE NOT SPECIFIED Qualifiers: Urinary tract infection type: site unspecified Hematuria presence: with hematuria Qualified Code(s): N39.0 - Urinary tract infection, site not specified; R31.9 - Hematuria, unspecified (9) Diabetes Code(s): E11.9 - TYPE 2 DIABETES MELLITUS WITHOUT COMPLICATIONS (10) HTN (hypertension) Code(s): I10 - ESSENTIAL (PRIMARY) HYPERTENSION (11) Hyperlipidemia Code(s): E78.5 - HYPERLIPIDEMIA, UNSPECIFIED (12) S/P CABG (coronary artery bypass graft) Code(s): Z95.1 - PRESENCE OF AORTOCORONARY BYPASS GRAFT (13) COPD (chronic obstructive pulmonary disease) Code(s): J44.9 - CHRONIC OBSTRUCTIVE PULMONARY DISEASE, UNSPECIFIED (14) Decubitus ulcer, stage 4 with infection Code(s): L89.94 - PRESSURE ULCER OF UNSPECIFIED SITE, STAGE 4; L08.9 - LOCAL INFECTION OF THE SKIN AND SUBCUTANEOUS TISSUE, UNSP (15) Lactic acid increased Code(s): E87.2 - ACIDOSIS (16) Metabolic encephalopathy Code(s): G93.41 - METABOLIC ENCEPHALOPATHY (17) Seizures Code(s): R56.9 - UNSPECIFIED CONVULSIONS (18) ESBL (extended spectrum beta-lactamase) producing bacteria infection Code(s): A49.9 - BACTERIAL INFECTION, UNSPECIFIED; Z16.12 - EXTENDED SPECTRUM BETA LACTAMASE (ESBL) RESISTANCE Assessment/Plan Sepsis Gram negative UTI with bacteremia ESBL + bacterial infection HCAP vs VAP Diarrhea Polymicrobial Sacral St IV DU infection/ likely OM Seizures Chronic respiratory failure s/p trach/MV Acute kidney injury Uncontrolled DM Morbid obesity Hx of CVA s/p thrombectomy CAD s/p CABG x 2 COPD Diastolic CHF HTN HLD plan will send a vanco trough again and see vanco levels rest as per the team
--- NOTE | 2019-10-27 11:44 | PN ---
Progress Note (short form) - Note Progress Note: PULMONARY Intermittently opening eyes. Otherwise no change in mental status. NAD on AC mode of vent. 14/400/40/5 No acute events overnight. Trach in place/Low grade temp Cardiovascular: Yes: S1, S2 Respiratory: Yes: Mechanically Ventilated, Diminished Gastrointestinal: Yes: Normal Bowel Sounds, Soft Neurological: Yes: Unresponsive Labs/meds/notes/images reviewed noted IMP CHRONIC RESPIRATORY FAILURE S/P CVA WITH THROMBECTOMY UROSEPSIS GRAM NEG BACTEREMIA ? PNEUMONIA ELEVATED LACTATE LEVEL ASHD S/P CABG COPD HTN HLD DIASTOLIC HF SACRAL DECUBITUS VESTA ANEMIA PLAN VENT SUPPORT ON AC MODE IVF ABX PER ID MONITOR LYTES,RENAL FUNCTION, WOUND CARE Anabel GONZALEZ MD
[2019-10-27 11:59] LABS: BASO % 0.5 % (0-2.0); EOS % 1.1 % (0-4.5); HEMATOCRIT 28.4 % (32.4-45.2); HEMOGLOBIN 8.9 GM/dL (10.7-15.3); LYMPH % 19.6 % (8-40); MCH 23.1 pg (25.7-33.7); MCHC 31.2 g/dl (32.0-36.0); MEAN CELL VOLUME 74.1 fl (80-96); MEAN PLT VOLUME 8.3 fl (7.5-11.1); MONO % 6.9 % (3.8-10.2); NEUT % 71.9 % (42.8-82.8); PLATELET COUNT 367 K/MM3 (134-434); RBC 3.84 M/mm3 (3.60-5.2); RDW 21.3 % (11.6-15.6)
[2019-10-27 12:22] LABS: ALBUMIN 1.6 g/dl (3.4-5.0); BILIRUBIN,TOTAL 0.3 mg/dL (0.2-1); BLOOD UREA NITROGEN 15.1 mg/dL (7-18); CALCIUM 8.9 mg/dL (8.5-10.1); CREATININE 0.3 mg/dL (0.55-1.3); POTASSIUM 4.5 mmol/L (3.5-5.1); TOT PROT 5.9 g/dl (6.4-8.2)
[2019-10-27 13:21] LABS: ANISOCYTOSIS 2+; MACROCYTOSIS 1+; PLATELET ESTIMATE NORMAL; TEAR DROP CELLS 1+
--- NOTE | 2019-10-27 14:11 | PN ---
Progress Note, Physician History of Present Illness: Pt seen and examined at bedside. She appears comfortable. - Current Medication List Current Medications: Active Medications Acetaminophen (Tylenol Oral Solution -) 650 mg GT Q6H PRN PRN Reason: PAIN Last Admin: 10/27/19 09:36 Dose: 650 mg Documented by: Albuterol/Ipratropium (Duoneb -) 1 amp NEB RQID [facility] Last Admin: 10/27/19 11:20 Dose: 1 amp Documented by: Allopurinol (Zyloprim -) 100 mg PEG DAILY [facility] Last Admin: 10/27/19 09:29 Dose: 100 mg Documented by: Amino Acids (Prosource No Carb Liquid Pkt) 30 ml GT BID@0800,1730 [facility] Last Admin: 10/27/19 09:35 Dose: 30 ml Documented by: Amlodipine Besylate (Norvasc -) 5 mg PEG DAILY [facility] Last Admin: 10/27/19 09:29 Dose: 5 mg Documented by: Ascorbic Acid (Vitamin C Oral Solution -) 500 mg GT DAILY [facility] Last Admin: 10/27/19 09:30 Dose: 500 mg Documented by: Atorvastatin Calcium (Lipitor -) 80 mg PEG HS [facility] Last Admin: 10/26/19 21:39 Dose: 80 mg Documented by: Banana Based Medical Food (Banatrol Plus Powder Packet) 1 packet PO TID [facility] Last Admin: 10/27/19 13:58 Dose: 1 packet Documented by: Cholecalciferol (Vitamin D3 -) 1,000 unit GT DAILY [facility] Last Admin: 10/27/19 09:29 Dose: 1,000 unit Documented by: Collagenase (Santyl -) 1 applic TP DAILY [facility]; Protocol Last Admin: 10/27/19 09:32 Dose: Not Given Documented by: Cyanocobalamin (Vitamin B12 -) 1,000 mcg PEG DAILY [facility] Last Admin: 10/27/19 09:30 Dose: 1,000 mcg Documented by: Famotidine (Pepcid) 20 mg PEG DAILY [facility] Last Admin: 10/27/19 09:31 Dose: 20 mg Documented by: Ferrous Sulfate (Feosol) 300 mg GT BID [facility] Last Admin: 10/27/19 09:29 Dose: 300 mg Documented by: Heparin Sodium (Porcine) (Heparin -) 5,000 unit SQ BID [facility] Last Admin: 10/27/19 09:30 Dose: 5,000 unit Documented by: Meropenem 1 gm/ Dextrose 100 mls @ 200 mls/hr IVPB Q8H-IV [facility] Last Admin: 10/27/19 09:28 Dose: 200 mls/hr Documented by: Vancomycin HCl 1,250 mg/ (Dextrose) 250 mls @ 166.667 mls/hr IVPB Q12H [facility]; Protocol Last Admin: 10/27/19 03:34 Dose: 166.667 mls/hr Documented by: Insulin Aspart (Novolog Vial Sliding Scale -) 1 vial SQ Q6HPO [facility]; Protocol Last Admin: 10/27/19 11:24 Dose: 6 units Documented by: Insulin Detemir (Levemir Vial) 56 units SQ 0700,2200 [facility] Last Admin: 10/27/19 06:05 Dose: 56 units Documented by: Lactobacillus Acidophilus (Bacid -) 1 tab GT DAILY [facility] Last Admin: 10/27/19 09:29 Dose: 1 tab Documented by: Levetiracetam (Keppra Oral Solution -) 1,000 mg GT BID [facility] Last Admin: 10/27/19 09:28 Dose: 1,000 mg Documented by: Lisinopril (Prinivil) 5 mg GT DAILY [facility] Last Admin: 10/27/19 09:31 Dose: 5 mg Documented by: Multivitamins/Minerals (Certavite-Antioxidant Liquid) 15 ml GT DAILY [facility] Last Admin: 10/27/19 09:29 Dose: 15 ml Documented by: Nystatin (Nystop Powder -) 1 applic TP BID [facility] Last Admin: 10/27/19 09:31 Dose: 1 applic Documented by: Prednisone (Deltasone -) 5 mg PEG DAILY [facility] Last Admin: 10/27/19 09:31 Dose: 5 mg Documented by: Valproate Sodium (Depakene -) 750 mg GT TID [facility] Last Admin: 10/27/19 13:58 Dose: 750 mg Documented by: - Objective Vital Signs: Vital Signs Temperature 99.3 F 10/27/19 09:43 Pulse Rate 84 10/27/19 09:43 Respiratory Rate 14 10/27/19 11:20 Blood Pressure 144/85 10/27/19 09:43 O2 Sat by Pulse Oximetry (%) 100 10/27/19 11:20 Constitutional: Yes: Calm Eyes: Yes: Conjunctiva Clear HENT: Yes: Atraumatic Neck: Yes: Supple Cardiovascular: Yes: S1, S2 Respiratory: Yes: CTA Bilaterally Gastrointestinal: Yes: Soft Genitourinary: Yes: Incontinence Musculoskeletal: Yes: WNL Edema: No Neurological: Yes: Oriented Psychiatric: Yes: Oriented Labs: CBC, BMP 10/27/19 11:14 10/27/19 11:14 INR, PTT INR 1.05 (0.83-1.09) 10/17/19 18:47 Assessment/Plan Current Medications Generic Name Dose Route Start Last Admin Trade Name Freq PRN Reason Stop Dose Admin Acetaminophen 650 mg 10/18/19 12:21 10/27/19 09:36 Tylenol Oral Solution - GT 650 mg Q6H PRN Administration PAIN Albuterol/Ipratropium 1 amp 10/18/19 08:00 10/27/19 11:20 Duoneb - NEB 1 amp RQID [facility] Administration Allopurinol 100 mg 10/18/19 10:00 10/27/19 09:29 Zyloprim - PEG 100 mg DAILY [facility] Administration Amino Acids 30 ml 10/24/19 08:00 10/27/19 09:35 Prosource No Carb Liquid Pkt GT 30 ml BID@0800,1730 [facility] Administration Amlodipine Besylate 5 mg 10/18/19 10:00 10/27/19 09:29 Norvasc - PEG 5 mg DAILY [facility] Administration Ascorbic Acid 500 mg 10/18/19 13:00 10/27/19 09:30 Vitamin C Oral Solution - GT 500 mg DAILY [facility] Administration Atorvastatin Calcium 80 mg 10/18/19 22:00 10/26/19 21:39 Lipitor - PEG 80 mg HS [facility] Administration Banana Based Medical Food 1 packet 10/22/19 14:00 10/27/19 13:58 Banatrol Plus Powder Packet PO 1 packet TID [facility] Administration Cholecalciferol 1,000 unit 10/20/19 07:36 10/27/19 09:29 Vitamin D3 - GT 1,000 unit DAILY [facility] Administration Collagenase 1 applic 10/18/19 13:00 10/27/19 09:32 Santyl - TP Not Given DAILY [facility] Protocol Cyanocobalamin 1,000 mcg 10/20/19 07:36 10/27/19 09:30 Vitamin B12 - PEG 1,000 mcg DAILY [facility] Administration Famotidine 20 mg 10/25/19 10:00 10/27/19 09:31 Pepcid PEG 20 mg DAILY [facility] Administration Ferrous Sulfate 300 mg 10/22/19 22:00 10/27/19 09:29 Feosol GT 300 mg BID [facility] Administration Heparin Sodium (Porcine) 5,000 unit 10/18/19 22:15 10/27/19 09:30 Heparin - SQ 5,000 unit BID [facility] Administration Meropenem 1 gm/ Dextrose 100 mls @ 200 mls/hr 10/20/19 18:00 10/27/19 09:28 IVPB 200 mls/hr Q8H-IV [facility] Administration Vancomycin HCl 1,250 mg/ 250 mls @ 166.667 mls/hr 10/24/19 16:00 10/27/19 03:34 Dextrose IVPB 166.667 mls/hr Q12H [facility] Administration Protocol Insulin Aspart 1 vial 10/21/19 01:05 10/27/19 11:24 Novolog Vial Sliding Scale - SQ 6 units Q6HPO [facility] Administration Protocol Insulin Detemir 56 units 10/26/19 22:48 10/27/19 06:05 Levemir Vial SQ 56 units 0700,2200 [facility] Administration Lactobacillus Acidophilus 1 tab 10/20/19 17:00 10/27/19 09:29 Bacid - GT 1 tab DAILY [facility] Administration Levetiracetam 1,000 mg 10/18/19 12:30 10/27/19 09:28 Keppra Oral Solution - GT 1,000 mg BID [facility] Administration Lisinopril 5 mg 10/25/19 10:00 10/27/19 09:31 Prinivil GT 5 mg DAILY [facility] Administration Multivitamins/Minerals 15 ml 10/18/19 12:30 10/27/19 09:29 Certavite-Antioxidant Liquid GT 15 ml DAILY [facility] Administration Nystatin 1 applic 10/18/19 12:30 10/27/19 09:31 Nystop Powder - TP 1 applic BID [facility] Administration Prednisone 5 mg 10/18/19 10:00 10/27/19 09:31 Deltasone - PEG 5 mg DAILY [facility] Administration Valproate Sodium 750 mg 10/18/19 14:00 10/27/19 13:58 Depakene - GT 750 mg TID [facility] Administration Impression 1. VESTA 2. DM 3. hypernatremia 4. resp failure 5. cva 6. copd 7. htn Plan - pt tolerating feeds - stable off of fluids - monitor lytes - vent support - corrected sodium is normal
[2019-10-27] MEDS: ATORVASTATIN CA 80 MG TABLET (FP) PEG SCH (21:47)
[2019-10-28] MEDS: INSULIN SLIDING SCALE (NOVOLOG) 1 VIAL SQ SCH ×4 (00:09→17:12)
[2019-10-28] MEDS ORDERED: MEROPENEM 1 GM VIAL (RESTRICTED TO ID) IVPB ONE ×4 (01:27→16:46)
[2019-10-28] MEDS ORDERED: DEXTROSE 5%-WATER 100 ML IVPB ONE ×4 (01:28→16:46)
[2019-10-28] MEDS: MEROPENEM 1 GM in DEXTROSE 5%-WATER 100 ML IVPB SCH ×3 (01:47→17:10)
[2019-10-28] MEDS: VANCOMYCIN 1,250 MG in DEXTROSE 5%-WATER - 250 ML IVPB SCH ×2 (05:19→15:11)
[2019-10-28] MEDS: VALPROATE SODIUM 250 MG/5 ML UNIT DOSE CUP GT SCH ×3 (05:19→21:30)
[2019-10-28] MEDS: BANATROL PLUS POWDER PACKET PO SCH ×3 (05:20→21:33)
[2019-10-28] MEDS: INSULIN (LEVEMIR) 100 UNITS/ML UNITS SQ SCH ×2 (06:00→21:29)
[2019-10-28] MEDS ORDERED: INSULIN (NOVOLOG) ASPART 100 UNITS/ML 10ML VIAL ONE ×4 (06:40→23:58)
--- NOTE | 2019-10-28 08:17 | DS ---
Physical Examination Vital Signs: Vital Signs Temperature 98.8 F 10/28/19 05:36 Pulse Rate 96 H 10/28/19 05:36 Respiratory Rate 16 10/28/19 05:36 Blood Pressure 131/63 10/28/19 05:36 O2 Sat by Pulse Oximetry (%) 99 10/28/19 05:36 Findings/Remarks: (1) Metabolic encephalopathy Assessment/Plan: -Cultures: Microbiology 10/17/19 18:40 Blood - Peripheral Venous Blood Culture - Final Proteus Mirabilus - Esbl Produ 10/18/19 18:10 Sputum - Endotrachea Suction/Ventilator Gram Stain - Final 10/18/19 18:10 Sputum - Endotrachea Suction/Ventilator Sputum Culture - Final Proteus Mirabilus - Esbl Produ Mr S Aureus 10/19/19 18:00 Blood - Peripheral Venous Blood Culture - Preliminary NO GROWTH OBTAINED AFTER 48 HOURS, INCUBATION TO CONTINUE FOR 3 DAYS. 10/19/19 17:50 Blood - Peripheral Venous Blood Culture - Preliminary NO GROWTH OBTAINED AFTER 48 HOURS, INCUBATION TO CONTINUE FOR 3 DAYS. 10/17/19 20:36 Urine - Urine - Catheterized Urine Culture - Final Proteus Mirabilus - Esbl Produ 10/18/19 23:00 Decubiti Gram Stain - Final 10/18/19 23:00 Decubiti Wound Culture - Final Proteus Species Lactose Fermenting Neg Bacilli Pseudomonas Species 10/17/19 18:40 Blood - Peripheral Venous Blood Culture - Final Proteus Mirabilus - Esbl Produ 10/18/19 03:30 Urine - Urine Robbins Urine Culture - Final Proteus Mirabilus - Esbl Produ 10/18/19 18:10 Stool Clostridioides difficile Antigen - Final 10/18/19 18:10 Stool Clostridioides difficile Toxin Assay - Final -ID consult -IV meropenem x 2 weeks total, today day #7 -Given IV vanco for 4 days Problems reviewed: Yes Code(s): G93.41 - METABOLIC ENCEPHALOPATHY (2) VESTA (acute kidney injury) Assessment/Plan: -Resolved -Nephrology consult -Monitor trend Problems reviewed: Yes Code(s): N17.9 - ACUTE KIDNEY FAILURE, UNSPECIFIED (3) Acute hypercapnic respiratory failure Assessment/Plan: -Pulmonary consult -Mech vent -Failed weaning trial Problems reviewed: Yes Code(s): J96.02 - ACUTE RESPIRATORY FAILURE WITH HYPERCAPNIA (4) Diabetes Assessment/Plan: -BGM Q6H -A1c at 10.9 -ISS -BGM's are now elevated due to change in TF and being on watermaster prednisone -Increase Levemir to 56 U BID -Endocrine consult appreciated Problems reviewed: Yes Code(s): E11.9 - TYPE 2 DIABETES MELLITUS WITHOUT COMPLICATIONS (5) Bacteremia Assessment/Plan: -ID consult -Monitor labs -IV abx-Meropenem -Afebrile -LA noted -Repeat BC negative Problems reviewed: Yes Code(s): R78.81 - BACTEREMIA (6) Pneumonia Assessment/Plan: -CXR LLL infiltrate -ID consult -Pulmonary consult -COVID 19 Negative Problems reviewed: Yes Code(s): J18.9 - PNEUMONIA, UNSPECIFIED ORGANISM Qualifiers: Pneumonia type: due to unspecified organism Laterality: unspecified laterality Lung location: unspecified part of lung Qualified Code(s): J18.9 - Pneumonia, unspecified organism (7) MRSA (methicillin resistant staph aureus) culture positive Problems reviewed: Yes Code(s): Z22.322 - CARRIER OR SUSPECTED CARRIER OF METHICILLIN RESIS STAPH (8) Anemia Assessment/Plan: -FANNY -Stool OB negative -B12, thyroid profile unremarkable -S/P 1 U PRBC -Monitor trend -Increased Ferrous sulfate to BID Problems reviewed: Yes Code(s): D64.9 - ANEMIA, UNSPECIFIED (9) Diarrhea Assessment/Plan: -improved -Continue rectal tube -Cdiff negative -On Bacid -Added Bannitrol -AXR unremarkable -GI consult appreciated -Continue TF to Vital 1.2 -Also seen by RD Problems reviewed: Yes Code(s): R19.7 - DIARRHEA, UNSPECIFIED (10) Seizures Assessment/Plan: -Twitching noted in RUE -Seen by Neurology -No changes in Keppra and Depakote -Exacerbated by acute infection? Problems reviewed: Yes Code(s): R56.9 - UNSPECIFIED CONVULSIONS Assessment/Plan See problem list Overall poor prognosis Palliative care on board Daughter wants everything done and LTACH placement when ready for dc COVID 19 PCR in preparation of discharge Constitutional: Yes: Well Nourished, No Distress, Calm Respiratory: Yes: Regular, Mechanically Ventilated, Rhonchi (diffuse) Gastrointestinal: Yes: Normal Bowel Sounds, Soft, Abdomen, Obese Renal/: Yes: Robbins Present Musculoskeletal: Yes: Muscle Weakness Extremities: Yes: Other (generalizeda trophy) Edema: No Peripheral Pulses WNL: Yes Integumentary: Yes: Pressure Ulcer (sacral + BL heel) Neurological: Yes: Pre-Existing Deficit, Other (obtunded) Labs: CBC, BMP 10/27/19 11:14 10/27/19 11:14 Discharge Summary Problems reviewed: Yes Reason For Visit: URINARY TRACT INFECTION, LEFT LOWER LOBE PNEUMONIA Current Active Problems VESTA (acute kidney injury) (Acute) Abnormal liver function tests (Acute) Anemia (Acute) Bacteremia (Acute) CAD (coronary artery disease) (Acute) COPD (chronic obstructive pulmonary disease) (Acute) Chronic respiratory failure (Acute) Decubitus ulcer, stage 4 with infection (Acute) Diarrhea (Acute) ESBL (extended spectrum beta-lactamase) producing bacteria infection (Acute) Fatty liver (Acute) Gallstones (Acute) Gram-negative bacteremia (Acute) High glucose (Acute) History of CVA (cerebrovascular accident) (Acute) Lactic acid increased (Acute) MRSA (methicillin resistant staph aureus) culture positive (Acute) Metabolic encephalopathy (Acute) Pneumonia (Acute) Seizures (Acute) Sepsis (Acute) Condition: Stable - Instructions Diet, Activity, Other Instructions: Continue rectal tube Continue meropenem 1 gm Q8H till 11/05/19 Referrals: Phong Palomino MD [Primary Care Provider] - Disposition: TRANSFER ACUTE CARE/OTHER HOSP - Home Medications Comprehensive Discharge Medication List: Ambulatory Orders Cholecalciferol (Vitamin D3) [Vitamin D3] 1,000 unit PO DAILY 01/18/17 Albuterol 2.5/Ipratropium 0.5 [Duoneb -] 1 neb IH QID 7 Days #30 vial.neb. 03/03/19 Albuterol 0.083% Nebulizer Sil [Ventolin 0.083% Nebulizer Soln -] 1 neb NEB Q4H PRN #30 vial 03/04/19 Cyanocobalamin [Vitamin B12 -] 1,000 mcg PO DAILY 08/23/19 Isosorbide Mononitrate [Isosorbide Mononitrate ER] 60 mg PO DAILY 08/23/19 Lisinopril [Prinivil] 20 mg PO DAILY 08/23/19 Allopurinol [Zyloprim -] 100 mg PO DAILY #30 tablet 08/31/19 Amlodipine Besylate [Norvasc -] 5 mg PO DAILY #30 tablet 08/31/19 Acetaminophen Oral Solution [Tylenol Oral Solution -] 650 mg GT Q6H PRN soln.oral 10/27/19 Amino Acids/Protein Hydrolys [Prosource No Carb Liquid Pkt] 30 ml GT BID@0800,1730 packet 10/27/19 Atorvastatin Ca [Lipitor] 80 mg PEG HS tablet 10/27/19 Cholecalciferol (Vitamin D3) [Vitamin D3 -] 1,000 unit GT DAILY tab 10/27/19 Collagenase Clostridium Hist. [Santyl -] 1 applic TP DAILY tube 10/27/19 Famotidine [Pepcid] 20 mg PEG DAILY oral.susp 10/27/19 Ferrous Sulfate [Feosol] 300 mg GT BID udc 10/27/19 Heparin - 5,000 unit SQ BID vial 10/27/19 Insulin (Levemir) [Levemir Vial] 56 units SQ 0700,2200 units 10/27/19 Insulin Sliding Scale [Novolog Vial Sliding Scale -] 1 vial SQ Q6HPO units 10/27/19 Lactobacillus Acidophilus [Bacid -] 1 tab GT DAILY tab 10/27/19 Lisinopril [Prinivil] 5 mg GT DAILY tablet 10/27/19 Meropenem [Merrem (Restricted To Id) -] 1 gm IVPB Q8H-IV 8 Days #24 vial 10/27/19 Multivit-Minerals [Certavite-Antioxidant Liquid] 15 ml GT DAILY cup 10/27/19 Nystatin Powder [Nystop Powder -] 1 applic TP BID applic 10/27/19 Valproate Sodium [Depakene -] 750 mg GT TID cup 10/27/19 Vancomycin 1,250 mg IVPB Q12H 12 Days #24 vial 10/27/19 levETIRAcetam [Keppra Oral Solution -] 1,000 mg GT BID cup 10/27/19 Prescription Drug Monitoring Program (I-STOP) results: I-STOP reviewed and no issues identified
[2019-10-28] MEDS: ALBUTEROL SO4 2.5/IPRATROPIUM 0.5 INH SOL 3 ML VIAL.NEB. NEB SCH ×3 (08:22→15:59)
[2019-10-28] MEDS ORDERED: PT OWN MED DRAWER 7, Y5N ONE ×2 (09:46→14:47)
[2019-10-28] MEDS: CHOLECALCIFEROL (VIT D3) 1,000 UNIT (25 MCG) TABLET GT SCH (09:55)
[2019-10-28] MEDS: MULTIVIT-MINERALS ORAL LIQUID GT SCH (09:55)
[2019-10-28] MEDS: amLODIPine BESYLATE 5 MG TABLET (FP) PEG SCH (09:55)
[2019-10-28] MEDS: AMINO ACIDS/PROTEIN HYDROLYS 30 ML LIQUID.PKT GT SCH ×2 (09:55→17:10)
[2019-10-28] MEDS: LACTOBACILLUS ACIDOPHILUS 1 TABLET GT SCH (09:55)
[2019-10-28] MEDS: HEPARIN NA (PORCINE) 5,000 UNITS/ML 1ML VIAL SQ SCH ×2 (09:56→21:29)
[2019-10-28] MEDS: ASCORBIC ACID 500 MG/5 ML UNIT DOSE CUP GT SCH (09:57)
[2019-10-28] MEDS: levETIRAcetam 500 MG/5 ML ORAL SOLUTION (UNIT-DOSE CUPS) GT SCH ×2 (09:58→21:30)
[2019-10-28] MEDS: NYSTATIN POWDER 100,000 UNITS/GM - 15 GM TOPICAL POWDER TP SCH (09:58)
[2019-10-28] MEDS: FERROUS SO4 300 MG/5 ML ORAL SOLN UNIT DOSE CUPS GT SCH ×2 (09:58→21:30)
[2019-10-28] MEDS: ALLOPURINOL 100 MG TABLET (FP) PEG SCH (09:59)
[2019-10-28] MEDS: FAMOTIDINE 40 MG/5 ML ORAL SUSPENSION PEG SCH (09:59)
[2019-10-28] MEDS: CYANOCOBALAMIN 1,000 MCG TABLET (FP) PEG SCH (09:59)
[2019-10-28] MEDS: COLLAGENASE CLOSTRIDIUM HIST. 30 GRAMS TUBE TP SCH (09:59)
[2019-10-28] MEDS: LISINOPRIL 5 MG TABLET (FP) GT SCH (09:59)
--- NOTE | 2019-10-28 11:10 | PN ---
Progress Note (short form) - Note Progress Note: PULMONARY Otherwise no change in mental status. NAD on AC mode of vent. 14/400/40/5 No acute events overnight. Trach in place/afeb today Cardiovascular: Yes: S1, S2 Respiratory: Yes: Mechanically Ventilated, Diminished Gastrointestinal: Yes: Normal Bowel Sounds, Soft Neurological: Yes: Unresponsive Labs/meds/notes/images reviewed noted IMP CHRONIC RESPIRATORY FAILURE S/P CVA WITH THROMBECTOMY UROSEPSIS GRAM NEG BACTEREMIA ? PNEUMONIA ELEVATED LACTATE LEVEL ASHD S/P CABG COPD HTN HLD DIASTOLIC HF SACRAL DECUBITUS VESTA ANEMIA PLAN VENT SUPPORT ON AC MODE IVF ABX PER ID MONITOR LYTES,RENAL FUNCTION, WOUND CARE Anabel GONZALEZ MD
[2019-10-28] MEDS: predniSONE 5 MG TABLET (UD) PEG SCH (12:14)
--- NOTE | 2019-10-28 14:51 | PN ---
Progress Note, Physician History of Present Illness: Pt seen and examined at bedside. No great change in status. SHe is tolerating feeds. - Current Medication List Current Medications: Active Medications Acetaminophen (Tylenol Oral Solution -) 650 mg GT Q6H PRN PRN Reason: PAIN Last Admin: 10/27/19 09:36 Dose: 650 mg Documented by: Albuterol/Ipratropium (Duoneb -) 1 amp NEB RQID [facility] Last Admin: 10/28/19 11:48 Dose: 1 amp Documented by: Allopurinol (Zyloprim -) 100 mg PEG DAILY [facility] Last Admin: 10/28/19 09:59 Dose: 100 mg Documented by: Amino Acids (Prosource No Carb Liquid Pkt) 30 ml GT BID@0800,1730 [facility] Last Admin: 10/28/19 09:55 Dose: 30 ml Documented by: Amlodipine Besylate (Norvasc -) 5 mg PEG DAILY [facility] Last Admin: 10/28/19 09:55 Dose: 5 mg Documented by: Ascorbic Acid (Vitamin C Oral Solution -) 500 mg GT DAILY [facility] Last Admin: 10/28/19 09:57 Dose: 500 mg Documented by: Atorvastatin Calcium (Lipitor -) 80 mg PEG HS [facility] Last Admin: 10/27/19 21:47 Dose: 80 mg Documented by: Banana Based Medical Food (Banatrol Plus Powder Packet) 1 packet PO TID [facility] Last Admin: 10/28/19 05:20 Dose: 1 packet Documented by: Cholecalciferol (Vitamin D3 -) 1,000 unit GT DAILY [facility] Last Admin: 10/28/19 09:55 Dose: 1,000 unit Documented by: Collagenase (Santyl -) 1 applic TP DAILY [facility]; Protocol Last Admin: 10/28/19 09:59 Dose: Not Given Documented by: Cyanocobalamin (Vitamin B12 -) 1,000 mcg PEG DAILY [facility] Last Admin: 10/28/19 09:59 Dose: 1,000 mcg Documented by: Famotidine (Pepcid) 20 mg PEG DAILY [facility] Last Admin: 10/28/19 09:59 Dose: 20 mg Documented by: Ferrous Sulfate (Feosol) 300 mg GT BID [facility] Last Admin: 10/28/19 09:58 Dose: 300 mg Documented by: Heparin Sodium (Porcine) (Heparin -) 5,000 unit SQ BID [facility] Last Admin: 10/28/19 09:56 Dose: 5,000 unit Documented by: Meropenem 1 gm/ Dextrose 100 mls @ 200 mls/hr IVPB Q8H-IV [facility] Last Admin: 10/28/19 09:54 Dose: 200 mls/hr Documented by: Vancomycin HCl 1,250 mg/ (Dextrose) 250 mls @ 166.667 mls/hr IVPB Q12H [facility]; Protocol Stop: 10/29/19 10:00 Last Admin: 10/28/19 05:19 Dose: 166.667 mls/hr Documented by: Insulin Aspart (Novolog Vial Sliding Scale -) 1 vial SQ Q6HPO [facility]; Protocol Last Admin: 10/28/19 12:14 Dose: 6 units Documented by: Insulin Detemir (Levemir Vial) 56 units SQ 0700,2200 [facility] Last Admin: 10/28/19 06:00 Dose: 56 units Documented by: Lactobacillus Acidophilus (Bacid -) 1 tab GT DAILY [facility] Last Admin: 10/28/19 09:55 Dose: 1 tab Documented by: Levetiracetam (Keppra Oral Solution -) 1,000 mg GT BID [facility] Last Admin: 10/28/19 09:58 Dose: 1,000 mg Documented by: Lisinopril (Prinivil) 5 mg GT DAILY [facility] Last Admin: 10/28/19 09:59 Dose: 5 mg Documented by: Multivitamins/Minerals (Certavite-Antioxidant Liquid) 15 ml GT DAILY [facility] Last Admin: 10/28/19 09:55 Dose: 15 ml Documented by: Nystatin (Nystop Powder -) 1 applic TP BID [facility] Last Admin: 10/28/19 09:58 Dose: 1 applic Documented by: Prednisone (Deltasone -) 5 mg PEG DAILY [facility] Last Admin: 10/28/19 12:14 Dose: 5 mg Documented by: Valproate Sodium (Depakene -) 750 mg GT TID [facility] Last Admin: 10/28/19 05:19 Dose: 750 mg Documented by: - Objective Vital Signs: Vital Signs Temperature 99.0 F 10/28/19 10:00 Pulse Rate 100 H 10/28/19 10:00 Respiratory Rate 22 H 10/28/19 11:47 Blood Pressure 152/68 10/28/19 10:00 O2 Sat by Pulse Oximetry (%) 99 10/28/19 10:00 Constitutional: Yes: Calm Eyes: Yes: Conjunctiva Clear HENT: Yes: Atraumatic Cardiovascular: Yes: S1, S2 Respiratory: Yes: Mechanically Ventilated Gastrointestinal: Yes: Soft, Abdomen, Obese Genitourinary: Yes: Incontinence Musculoskeletal: Yes: Muscle Weakness Edema: No Integumentary: Yes: WNL Neurological: Yes: Lethargy, Pre-Existing Deficit Labs: CBC, BMP 10/27/19 11:14 10/27/19 11:14 INR, PTT INR 1.05 (0.83-1.09) 10/17/19 18:47 Assessment/Plan Current Medications Generic Name Dose Route Start Last Admin Trade Name Freq PRN Reason Stop Dose Admin Acetaminophen 650 mg 10/18/19 12:21 10/27/19 09:36 Tylenol Oral Solution - GT 650 mg Q6H PRN Administration PAIN Albuterol/Ipratropium 1 amp 10/18/19 08:00 10/28/19 11:48 Duoneb - NEB 1 amp RQID [facility] Administration Allopurinol 100 mg 10/18/19 10:00 10/28/19 09:59 Zyloprim - PEG 100 mg DAILY [facility] Administration Amino Acids 30 ml 10/24/19 08:00 10/28/19 09:55 Prosource No Carb Liquid Pkt GT 30 ml BID@0800,1730 [facility] Administration Amlodipine Besylate 5 mg 10/18/19 10:00 10/28/19 09:55 Norvasc - PEG 5 mg DAILY [facility] Administration Ascorbic Acid 500 mg 10/18/19 13:00 10/28/19 09:57 Vitamin C Oral Solution - GT 500 mg DAILY [facility] Administration Atorvastatin Calcium 80 mg 10/18/19 22:00 10/27/19 21:47 Lipitor - PEG 80 mg HS [facility] Administration Banana Based Medical Food 1 packet 10/22/19 14:00 10/28/19 05:20 Banatrol Plus Powder Packet PO 1 packet TID [facility] Administration Cholecalciferol 1,000 unit 10/20/19 07:36 10/28/19 09:55 Vitamin D3 - GT 1,000 unit DAILY [facility] Administration Collagenase 1 applic 10/18/19 13:00 10/28/19 09:59 Santyl - TP Not Given DAILY [facility] Protocol Cyanocobalamin 1,000 mcg 10/20/19 07:36 10/28/19 09:59 Vitamin B12 - PEG 1,000 mcg DAILY [facility] Administration Famotidine 20 mg 10/25/19 10:00 10/28/19 09:59 Pepcid PEG 20 mg DAILY [facility] Administration Ferrous Sulfate 300 mg 10/22/19 22:00 10/28/19 09:58 Feosol GT 300 mg BID [facility] Administration Heparin Sodium (Porcine) 5,000 unit 10/18/19 22:15 10/28/19 09:56 Heparin - SQ 5,000 unit BID [facility] Administration Meropenem 1 gm/ Dextrose 100 mls @ 200 mls/hr 10/20/19 18:00 10/28/19 09:54 IVPB 200 mls/hr Q8H-IV [facility] Administration Vancomycin HCl 1,250 mg/ 250 mls @ 166.667 mls/hr 10/24/19 16:00 10/28/19 05:19 Dextrose IVPB 10/29/19 10:00 166.667 mls/hr Q12H [facility] Administration Protocol Insulin Aspart 1 vial 10/21/19 01:05 10/28/19 12:14 Novolog Vial Sliding Scale - SQ 6 units Q6HPO [facility] Administration Protocol Insulin Detemir 56 units 10/26/19 22:48 10/28/19 06:00 Levemir Vial SQ 56 units 0700,2200 [facility] Administration Lactobacillus Acidophilus 1 tab 10/20/19 17:00 10/28/19 09:55 Bacid - GT 1 tab DAILY [facility] Administration Levetiracetam 1,000 mg 10/18/19 12:30 10/28/19 09:58 Keppra Oral Solution - GT 1,000 mg BID [facility] Administration Lisinopril 5 mg 10/25/19 10:00 10/28/19 09:59 Prinivil GT 5 mg DAILY [facility] Administration Multivitamins/Minerals 15 ml 10/18/19 12:30 10/28/19 09:55 Certavite-Antioxidant Liquid GT 15 ml DAILY [facility] Administration Nystatin 1 applic 10/18/19 12:30 10/28/19 09:58 Nystop Powder - TP 1 applic BID [facility] Administration Prednisone 5 mg 10/18/19 10:00 10/28/19 12:14 Deltasone - PEG 5 mg DAILY [facility] Administration Valproate Sodium 750 mg 10/18/19 14:00 10/28/19 05:19 Depakene - GT 750 mg TID [facility] Administration Impression 1. VESTA 2. DM 3. hypernatremia 4. resp failure 5. cva 6. copd 7. htn Plan - cont feeds - monitor glucose - renal function improved - stable off of fluids - monitor lytes - vent support
[2019-10-28] MEDS: ATORVASTATIN CA 80 MG TABLET (FP) PEG SCH (21:30)
[2019-10-28] MEDS ORDERED: COLLAGENASE CLOSTRIDIUM HIST. 30 GRAMS TUBE TP SCH (22:00)
[2019-10-29] MEDS ORDERED: DEXTROSE 5%-WATER 100 ML IVPB ONE ×2 (01:15→09:58)
[2019-10-29] MEDS ORDERED: MEROPENEM 1 GM VIAL (RESTRICTED TO ID) IVPB ONE ×2 (01:15→09:58)
[2019-10-29] MEDS: MEROPENEM 1 GM in DEXTROSE 5%-WATER 100 ML IVPB SCH ×2 (01:57→10:04)
[2019-10-29] MEDS: NYSTATIN POWDER 100,000 UNITS/GM - 15 GM TOPICAL POWDER TP SCH ×2 (01:58→10:24)
[2019-10-29] MEDS: VANCOMYCIN 1,250 MG in DEXTROSE 5%-WATER - 250 ML IVPB SCH (03:32)
[2019-10-29] MEDS: VALPROATE SODIUM 250 MG/5 ML UNIT DOSE CUP GT SCH ×2 (05:27→13:36)
[2019-10-29] MEDS: BANATROL PLUS POWDER PACKET PO SCH ×2 (05:27→13:36)
[2019-10-29] MEDS: INSULIN SLIDING SCALE (NOVOLOG) 1 VIAL SQ SCH ×3 (05:37→11:47)
[2019-10-29] MEDS: INSULIN (LEVEMIR) 100 UNITS/ML UNITS SQ SCH (06:11)
[2019-10-29] MEDS: ALBUTEROL SO4 2.5/IPRATROPIUM 0.5 INH SOL 3 ML VIAL.NEB. NEB SCH ×3 (07:15→15:12)
[2019-10-29 08:39] VITALS: PULSE 98
--- NOTE | 2019-10-29 08:42 | DS ---
Physical Examination Vital Signs: Vital Signs Temperature 98.2 F 10/29/19 02:10 Pulse Rate 98 H 10/29/19 08:38 Respiratory Rate 21 H 10/29/19 08:38 Blood Pressure 151/74 10/29/19 02:10 O2 Sat by Pulse Oximetry (%) 99 10/29/19 08:38 Cardiovascular: Yes: S1, S2 Respiratory: Yes: Mechanically Ventilated Gastrointestinal: Yes: Normal Bowel Sounds, Soft Edema: No Labs: CBC, BMP 10/27/19 11:14 10/27/19 11:14 Discharge Summary Problems reviewed: Yes Reason For Visit: URINARY TRACT INFECTION, LEFT LOWER LOBE PNEUMONIA Current Active Problems VESTA (acute kidney injury) (Acute) Abnormal liver function tests (Acute) Anemia (Acute) Bacteremia (Acute) CAD (coronary artery disease) (Acute) COPD (chronic obstructive pulmonary disease) (Acute) Chronic respiratory failure (Acute) Decubitus ulcer, stage 4 with infection (Acute) Diarrhea (Acute) ESBL (extended spectrum beta-lactamase) producing bacteria infection (Acute) Fatty liver (Acute) Gallstones (Acute) Gram-negative bacteremia (Acute) High glucose (Acute) History of CVA (cerebrovascular accident) (Acute) Lactic acid increased (Acute) MRSA (methicillin resistant staph aureus) culture positive (Acute) Metabolic encephalopathy (Acute) Pneumonia (Acute) Seizures (Acute) Sepsis (Acute) Hospital Course: (1) Metabolic encephalopathy Assessment/Plan: -Cultures: Microbiology 10/17/19 18:40 Blood - Peripheral Venous Blood Culture - Final Proteus Mirabilus - Esbl Produ 10/18/19 18:10 Sputum - Endotrachea Suction/Ventilator Gram Stain - Final 10/18/19 18:10 Sputum - Endotrachea Suction/Ventilator Sputum Culture - Final Proteus Mirabilus - Esbl Produ Mr S Aureus 10/19/19 18:00 Blood - Peripheral Venous Blood Culture - Preliminary NO GROWTH OBTAINED AFTER 48 HOURS, INCUBATION TO CONTINUE FOR 3 DAYS. 10/19/19 17:50 Blood - Peripheral Venous Blood Culture - Preliminary NO GROWTH OBTAINED AFTER 48 HOURS, INCUBATION TO CONTINUE FOR 3 DAYS. 10/17/19 20:36 Urine - Urine - Catheterized Urine Culture - Final Proteus Mirabilus - Esbl Produ 10/18/19 23:00 Decubiti Gram Stain - Final 10/18/19 23:00 Decubiti Wound Culture - Final Proteus Species Lactose Fermenting Neg Bacilli Pseudomonas Species 10/17/19 18:40 Blood - Peripheral Venous Blood Culture - Final Proteus Mirabilus - Esbl Produ 10/18/19 03:30 Urine - Urine Robbins Urine Culture - Final Proteus Mirabilus - Esbl Produ 10/18/19 18:10 Stool Clostridioides difficile Antigen - Final 10/18/19 18:10 Stool Clostridioides difficile Toxin Assay - Final -ID consult -IV meropenem x 2 weeks total, today day #7 -Given IV vanco for 4 days Problems reviewed: Yes Code(s): G93.41 - METABOLIC ENCEPHALOPATHY (2) VESTA (acute kidney injury) Assessment/Plan: -Resolved -Nephrology consult -Monitor trend Problems reviewed: Yes Code(s): N17.9 - ACUTE KIDNEY FAILURE, UNSPECIFIED (3) Acute hypercapnic respiratory failure Assessment/Plan: -Pulmonary consult -Mech vent -Failed weaning trial Problems reviewed: Yes Code(s): J96.02 - ACUTE RESPIRATORY FAILURE WITH HYPERCAPNIA (4) Diabetes Assessment/Plan: -BGM Q6H -A1c at 10.9 -ISS -BGM's are now elevated due to change in TF and being on shelter prednisone -Increase Levemir to 56 U BID -Endocrine consult appreciated Problems reviewed: Yes Code(s): E11.9 - TYPE 2 DIABETES MELLITUS WITHOUT COMPLICATIONS (5) Bacteremia Assessment/Plan: -ID consult -Monitor labs -IV abx-Meropenem -Afebrile -LA noted -Repeat BC negative Problems reviewed: Yes Code(s): R78.81 - BACTEREMIA (6) Pneumonia Assessment/Plan: -CXR LLL infiltrate -ID consult -Pulmonary consult -COVID 19 Negative Problems reviewed: Yes Code(s): J18.9 - PNEUMONIA, UNSPECIFIED ORGANISM Qualifiers: Pneumonia type: due to unspecified organism Laterality: unspecified laterality Lung location: unspecified part of lung Qualified Code(s): J18.9 - Pneumonia, unspecified organism (7) MRSA (methicillin resistant staph aureus) culture positive Problems reviewed: Yes Code(s): Z22.322 - CARRIER OR SUSPECTED CARRIER OF METHICILLIN RESIS STAPH (8) Anemia Assessment/Plan: -FANNY -Stool OB negative -B12, thyroid profile unremarkable -S/P 1 U PRBC -Monitor trend -Increased Ferrous sulfate to BID Problems reviewed: Yes Code(s): D64.9 - ANEMIA, UNSPECIFIED (9) Diarrhea Assessment/Plan: -improved -Continue rectal tube -Cdiff negative -On Bacid -Added Bannitrol -AXR unremarkable -GI consult appreciated -Continue TF to Vital 1.2 -Also seen by RD Problems reviewed: Yes Code(s): R19.7 - DIARRHEA, UNSPECIFIED (10) Seizures Assessment/Plan: -Twitching noted in RUE -Seen by Neurology -No changes in Keppra and Depakote -Exacerbated by acute infection? Problems reviewed: Yes Code(s): R56.9 - UNSPECIFIED CONVULSIONS Assessment/Plan See problem list Overall poor prognosis Palliative care on board Daughter wants everything done and LTACH placement when ready for dc COVID 19 PCR in preparation of discharge Condition: Stable - Instructions Diet, Activity, Other Instructions: Continue rectal tube for wound healing, diarrhea is improved Continue meropenem 1 gm Q8H till 11/05/19 Referrals: Phong Palomino MD [Primary Care Provider] - Disposition: TRANSFER ACUTE CARE/OTHER HOSP - Home Medications Comprehensive Discharge Medication List: Ambulatory Orders Cholecalciferol (Vitamin D3) [Vitamin D3] 1,000 unit PO DAILY 01/18/17 Albuterol 2.5/Ipratropium 0.5 [Duoneb -] 1 neb IH QID 7 Days #30 vial.neb. 03/03/19 Albuterol 0.083% Nebulizer Sil [Ventolin 0.083% Nebulizer Soln -] 1 neb NEB Q4H PRN #30 vial 03/04/19 Cyanocobalamin [Vitamin B12 -] 1,000 mcg PO DAILY 08/23/19 Isosorbide Mononitrate [Isosorbide Mononitrate ER] 60 mg PO DAILY 08/23/19 Lisinopril [Prinivil] 20 mg PO DAILY 08/23/19 Allopurinol [Zyloprim -] 100 mg PO DAILY #30 tablet 08/31/19 Amlodipine Besylate [Norvasc -] 5 mg PO DAILY #30 tablet 08/31/19 Acetaminophen Oral Solution [Tylenol Oral Solution -] 650 mg GT Q6H PRN soln.oral 10/27/19 Amino Acids/Protein Hydrolys [Prosource No Carb Liquid Pkt] 30 ml GT BID@0800,1730 packet 10/27/19 Atorvastatin Ca [Lipitor] 80 mg PEG HS tablet 10/27/19 Cholecalciferol (Vitamin D3) [Vitamin D3 -] 1,000 unit GT DAILY tab 10/27/19 Collagenase Clostridium Hist. [Santyl -] 1 applic TP DAILY tube 10/27/19 Famotidine [Pepcid] 20 mg PEG DAILY oral.susp 10/27/19 Ferrous Sulfate [Feosol] 300 mg GT BID udc 10/27/19 Heparin - 5,000 unit SQ BID vial 10/27/19 Insulin (Levemir) [Levemir Vial] 56 units SQ 0700,2200 units 10/27/19 Insulin Sliding Scale [Novolog Vial Sliding Scale -] 1 vial SQ Q6HPO units 10/27/19 Lactobacillus Acidophilus [Bacid -] 1 tab GT DAILY tab 10/27/19 Lisinopril [Prinivil] 5 mg GT DAILY tablet 10/27/19 Meropenem [Merrem (Restricted To Id) -] 1 gm IVPB Q8H-IV 8 Days #24 vial 10/27/19 Multivit-Minerals [Certavite-Antioxidant Liquid] 15 ml GT DAILY cup 10/27/19 Nystatin Powder [Nystop Powder -] 1 applic TP BID applic 10/27/19 Valproate Sodium [Depakene -] 750 mg GT TID cup 10/27/19 Vancomycin 1,250 mg IVPB Q12H 12 Days #24 vial 10/27/19 levETIRAcetam [Keppra Oral Solution -] 1,000 mg GT BID cup 10/27/19
--- NOTE | 2019-10-29 09:55 | PN ---
Progress Note (short form) - Note Progress Note: WOUND CARE Veraflo vac therapy last changed 10/26/2019 by me. It remained through the weekend without any problems. Dressing removed while on rounds today. Dimensions Length: 9 cm Width: 9 cm Depth: 4 cm Sacrum exposed, fibrinous slough to base and sidewalls. No undermining. Informed by eliecer's RN that she is going to [facility] for continued care today. Wound dressed with santyl and packed with moist kerlix, dry 4x4/abd dressing Recommend continued VAC therapy at final destination today. Black sponge dressing, 125 mmHg, dressing change either: -w- or t--tue depending upon when they initiate therapy On behalf of Dr. Eli thank you for the opportunity to participate in your patient's care.
[2019-10-29] MEDS: AMINO ACIDS/PROTEIN HYDROLYS 30 ML LIQUID.PKT GT SCH (10:04)
[2019-10-29] MEDS: levETIRAcetam 500 MG/5 ML ORAL SOLUTION (UNIT-DOSE CUPS) GT SCH (10:04)
[2019-10-29] MEDS: amLODIPine BESYLATE 5 MG TABLET (FP) PEG SCH (10:05)
[2019-10-29] MEDS: ALLOPURINOL 100 MG TABLET (FP) PEG SCH (10:05)
[2019-10-29] MEDS: FERROUS SO4 300 MG/5 ML ORAL SOLN UNIT DOSE CUPS GT SCH (10:05)
[2019-10-29] MEDS: CHOLECALCIFEROL (VIT D3) 1,000 UNIT (25 MCG) TABLET GT SCH (10:05)
[2019-10-29] MEDS: LACTOBACILLUS ACIDOPHILUS 1 TABLET GT SCH (10:05)
[2019-10-29] MEDS: predniSONE 5 MG TABLET (UD) PEG SCH (10:06)
[2019-10-29] MEDS: ASCORBIC ACID 500 MG/5 ML UNIT DOSE CUP GT SCH (10:06)
[2019-10-29] MEDS: HEPARIN NA (PORCINE) 5,000 UNITS/ML 1ML VIAL SQ SCH (10:06)
[2019-10-29] MEDS: MULTIVIT-MINERALS ORAL LIQUID GT SCH (10:06)
[2019-10-29] MEDS: FAMOTIDINE 40 MG/5 ML ORAL SUSPENSION PEG SCH (10:06)
[2019-10-29] MEDS: LISINOPRIL 5 MG TABLET (FP) GT SCH (10:07)
[2019-10-29] MEDS: CYANOCOBALAMIN 1,000 MCG TABLET (FP) PEG SCH (10:07)
--- NOTE | 2019-10-29 10:19 | PN ---
Progress Note, Physician History of Present Illness: 69 year old female with past medical history of diastolic congestive heart failure, coronary artery disease status post CABG x2, moderate-severe aortic regurgitation, moderate pulmonary HTN, ?hyperparathyroidism, obesity,COPD, IDDM, HTN, HLD, CVA s/p thrombectomy 09/2019 at [facility] with respiratory failure s/p tracheostomy and PEG tube who was sent from [facility] for hyperglycemia and "de hydration". Per MS, blood sugar was in the 400's and BUN 111/creatinine 1.6. and had a normal kidney function in the past. At baseline patient is slow to respond and keeps her eyes closed . - Current Medication List Current Medications: Active Medications Acetaminophen (Tylenol Oral Solution -) 650 mg GT Q6H PRN PRN Reason: PAIN Last Admin: 10/27/19 09:36 Dose: 650 mg Documented by: Albuterol/Ipratropium (Duoneb -) 1 amp NEB RQID [facility] Last Admin: 10/28/19 15:59 Dose: 1 amp Documented by: Allopurinol (Zyloprim -) 100 mg PEG DAILY [facility] Last Admin: 10/28/19 09:59 Dose: 100 mg Documented by: Amino Acids (Prosource No Carb Liquid Pkt) 30 ml GT BID@0800,1730 [facility] Last Admin: 10/28/19 17:10 Dose: 30 ml Documented by: Amlodipine Besylate (Norvasc -) 5 mg PEG DAILY [facility] Last Admin: 10/28/19 09:55 Dose: 5 mg Documented by: Ascorbic Acid (Vitamin C Oral Solution -) 500 mg GT DAILY [facility] Last Admin: 10/28/19 09:57 Dose: 500 mg Documented by: Atorvastatin Calcium (Lipitor -) 80 mg PEG HS [facility] Last Admin: 10/28/19 21:30 Dose: 80 mg Documented by: Banana Based Medical Food (Banatrol Plus Powder Packet) 1 packet PO TID [facility] Last Admin: 10/29/19 05:27 Dose: 1 packet Documented by: Cholecalciferol (Vitamin D3 -) 1,000 unit GT DAILY [facility] Last Admin: 10/28/19 09:55 Dose: 1,000 unit Documented by: Collagenase (Santyl -) 1 applic TP DAILY [facility]; Protocol Cyanocobalamin (Vitamin B12 -) 1,000 mcg PEG DAILY [facility] Last Admin: 10/28/19 09:59 Dose: 1,000 mcg Documented by: Famotidine (Pepcid) 20 mg PEG DAILY [facility] Last Admin: 10/28/19 09:59 Dose: 20 mg Documented by: Ferrous Sulfate (Feosol) 300 mg GT BID [facility] Last Admin: 10/28/19 21:30 Dose: 300 mg Documented by: Heparin Sodium (Porcine) (Heparin -) 5,000 unit SQ BID [facility] Last Admin: 10/28/19 21:29 Dose: 5,000 unit Documented by: Meropenem 1 gm/ Dextrose 100 mls @ 200 mls/hr IVPB Q8H-IV [facility] Last Admin: 10/29/19 01:57 Dose: 200 mls/hr Documented by: Insulin Aspart (Novolog Vial Sliding Scale -) 1 vial SQ Q6HPO [facility]; Protocol Last Admin: 10/29/19 05:37 Dose: 5 units Documented by: Insulin Detemir (Levemir Vial) 56 units SQ 0700,2200 [facility] Last Admin: 10/29/19 06:11 Dose: 56 units Documented by: Lactobacillus Acidophilus (Bacid -) 1 tab GT DAILY [facility] Last Admin: 10/28/19 09:55 Dose: 1 tab Documented by: Levetiracetam (Keppra Oral Solution -) 1,000 mg GT BID [facility] Last Admin: 10/28/19 21:30 Dose: 1,000 mg Documented by: Lisinopril (Prinivil) 5 mg GT DAILY [facility] Last Admin: 10/28/19 09:59 Dose: 5 mg Documented by: Multivitamins/Minerals (Certavite-Antioxidant Liquid) 15 ml GT DAILY [facility] Last Admin: 10/28/19 09:55 Dose: 15 ml Documented by: Nystatin (Nystop Powder -) 1 applic TP BID [facility] Last Admin: 10/29/19 01:58 Dose: 1 applic Documented by: Prednisone (Deltasone -) 5 mg PEG DAILY [facility] Last Admin: 10/28/19 12:14 Dose: 5 mg Documented by: Valproate Sodium (Depakene -) 750 mg GT TID [facility] Last Admin: 10/29/19 05:27 Dose: 750 mg Documented by: - Objective Vital Signs: Vital Signs Temperature 98.2 F 10/29/19 02:10 Pulse Rate 98 H 10/29/19 08:38 Respiratory Rate 21 H 10/29/19 08:38 Blood Pressure 151/74 10/29/19 02:10 O2 Sat by Pulse Oximetry (%) 99 10/29/19 08:38 Eyes: Yes: WNL, Conjunctiva Clear, EOM Intact HENT: Yes: WNL, Atraumatic, Normocephalic Neck: Yes: WNL, Supple, Trachea Midline Cardiovascular: Yes: WNL, Regular Rate and Rhythm Respiratory: Yes: Mechanically Ventilated Gastrointestinal: Yes: WNL, Normal Bowel Sounds Edema: No Integumentary: Yes: WNL Labs: CBC, BMP 10/27/19 11:14 10/27/19 11:14 INR, PTT INR 1.05 (0.83-1.09) 10/17/19 18:47 Problem List - Problems (1) VESTA (acute kidney injury) Code(s): N17.9 - ACUTE KIDNEY FAILURE, UNSPECIFIED (2) Anemia Code(s): D64.9 - ANEMIA, UNSPECIFIED (3) Bacteremia Code(s): R78.81 - BACTEREMIA (4) CAD (coronary artery disease) Code(s): I25.10 - ATHSCL HEART DISEASE OF [place] CORONARY ARTERY W/O ANG PCTRS (5) COPD (chronic obstructive pulmonary disease) Code(s): J44.9 - CHRONIC OBSTRUCTIVE PULMONARY DISEASE, UNSPECIFIED (6) Chronic respiratory failure Code(s): J96.10 - CHRONIC RESPIRATORY FAILURE, UNSP W HYPOXIA OR HYPERCAPNIA (7) Decubitus ulcer, stage 4 with infection Code(s): L89.94 - PRESSURE ULCER OF UNSPECIFIED SITE, STAGE 4; L08.9 - LOCAL INFECTION OF THE SKIN AND SUBCUTANEOUS TISSUE, UNSP (8) Diarrhea Code(s): R19.7 - DIARRHEA, UNSPECIFIED (9) ESBL (extended spectrum beta-lactamase) producing bacteria infection Code(s): A49.9 - BACTERIAL INFECTION, UNSPECIFIED; Z16.12 - EXTENDED SPECTRUM BETA LACTAMASE (ESBL) RESISTANCE (10) Gram-negative bacteremia Code(s): R78.81 - BACTEREMIA (11) High glucose Code(s): R73.09 - OTHER ABNORMAL GLUCOSE (12) History of CVA (cerebrovascular accident) Code(s): Z86.73 - PRSNL HX OF TIA (TIA), AND CEREB INFRC W/O RESID DEFICITS (13) Lactic acid increased Code(s): E87.2 - ACIDOSIS (14) MRSA (methicillin resistant staph aureus) culture positive Code(s): Z22.322 - CARRIER OR SUSPECTED CARRIER OF METHICILLIN RESIS STAPH (15) Metabolic encephalopathy Code(s): G93.41 - METABOLIC ENCEPHALOPATHY (16) Pneumonia Code(s): J18.9 - PNEUMONIA, UNSPECIFIED ORGANISM Qualifiers: Pneumonia type: due to unspecified organism Laterality: unspecified laterality Lung location: unspecified part of lung Qualified Code(s): J18.9 - Pneumonia, unspecified organism (17) Seizures Code(s): R56.9 - UNSPECIFIED CONVULSIONS (18) Sepsis Code(s): A41.9 - SEPSIS, UNSPECIFIED ORGANISM (19) ACS (acute coronary syndrome) Code(s): I24.9 - ACUTE ISCHEMIC HEART DISEASE, UNSPECIFIED (20) Acute hypercapnic respiratory failure Code(s): J96.02 - ACUTE RESPIRATORY FAILURE WITH HYPERCAPNIA (21) Acute pain of left foot Code(s): M79.672 - PAIN IN LEFT FOOT (22) Bursitis of hip Code(s): M70.70 - OTHER BURSITIS OF HIP, UNSPECIFIED HIP (23) CHF exacerbation Code(s): I50.9 - HEART FAILURE, UNSPECIFIED Qualifiers: Heart failure type: unspecified Qualified Code(s): I50.9 - Heart failure, unspecified (24) COPD exacerbation Code(s): J44.1 - CHRONIC OBSTRUCTIVE PULMONARY DISEASE W (ACUTE) EXACERBATION (25) Cellulitis Code(s): L03.90 - CELLULITIS, UNSPECIFIED Qualifiers: Site of cellulitis: extremity Site of cellulitis of extremity: toe (26) Chest pain Code(s): R07.9 - CHEST PAIN, UNSPECIFIED (27) Depression Code(s): F32.9 - MAJOR DEPRESSIVE DISORDER, SINGLE EPISODE, UNSPECIFIED (28) Dysphagia Code(s): R13.10 - DYSPHAGIA, UNSPECIFIED Qualifiers: Dysphagia type: unspecified Qualified Code(s): R13.10 - Dysphagia, unspeci fied (29) Fall Code(s): W19.XXXA - UNSPECIFIED FALL, INITIAL ENCOUNTER Qualifiers: Encounter type: initial encounter Qualified Code(s): W19.XXXA - Unspecified fall, initial encounter (30) Foot fracture, left Code(s): S92.902A - UNSP FRACTURE OF LEFT FOOT, INIT ENCNTR FOR CLOSED FRACTURE Qualifiers: Encounter type: initial encounter Fracture type: closed Qualified Code(s): S92.902A - Unspecified fracture of left foot, initial encounter for closed fracture (31) Gout Code(s): M10.9 - GOUT, UNSPECIFIED Qualifiers: Gout site: toe Gout etiology: idiopathic Chronicity: acute Laterality: left Qualified Code(s): M10.072 - Idiopathic gout, left ankle and foot (32) Head trauma Code(s): S09.90XA - UNSPECIFIED INJURY OF HEAD, INITIAL ENCOUNTER Qualifiers: Encounter type: initial encounter Qualified Code(s): S09.90XA - Unspecified injury of head, initial encounter (33) Hearing loss Code(s): H91.90 - UNSPECIFIED HEARING LOSS, UNSPECIFIED EAR Qualifiers: Hearing loss type: presbycusis Laterality: bilateral Qualified Code(s): H91.13 - Presbycusis, bilateral (34) Hypomagnesemia Code(s): E83.42 - HYPOMAGNESEMIA (35) Need for tetanus booster Code(s): Z23 - ENCOUNTER FOR IMMUNIZATION (36) Obese Code(s): E66.9 - OBESITY, UNSPECIFIED Qualifiers: Body mass index: BMI 60.0-69.9 (37) Right calf pain Code(s): M79.661 - PAIN IN RIGHT LOWER LEG (38) SOB (shortness of breath) Code(s): R06.02 - SHORTNESS OF BREATH (39) Sedentary lifestyle Code(s): Z91.89 - OTH PERSONAL RISK FACTORS, NOT ELSEWHERE CLASSIFIED (40) Sleep apnea Code(s): G47.30 - SLEEP APNEA, UNSPECIFIED (41) Stroke Code(s): I63.9 - CEREBRAL INFARCTION, UNSPECIFIED Qualifiers: CVA mechanism: thrombosis Precerebral and cerebral artery: middle cerebral artery Laterality of affected vessel: right Qualified Code(s): I63.311 - Cerebral infarction due to thrombosis of right middle cerebral artery (42) Throat pain Code(s): R07.0 - PAIN IN THROAT (43) Tooth pain Code(s): K08.8 - OTHER SPECIFIED DISORDERS OF TEETH AND SUPPOR * DO NOT USE * (44) UTI (urinary tract infection) Code(s): N39.0 - URINARY TRACT INFECTION, SITE NOT SPECIFIED Qualifiers: Urinary tract infection type: site unspecified Hematuria presence: with hematuria Qualified Code(s): N39.0 - Urinary tract infection, site not specified; R31.9 - Hematuria, unspecified (45) Weakness Code(s): R53.1 - WEAKNESS (46) Arteriosclerotic heart disease (ASHD) Code(s): I25.10 - ATHSCL HEART DISEASE OF [place] CORONARY ARTERY W/O ANG PCTRS (47) DVT prophylaxis Code(s): [id number] - (48) Diabetes Code(s): E11.9 - TYPE 2 DIABETES MELLITUS WITHOUT COMPLICATIONS (49) HTN (hypertension) Code(s): I10 - ESSENTIAL (PRIMARY) HYPERTENSION (50) Hyperlipidemia Code(s): E78.5 - HYPERLIPIDEMIA, UNSPECIFIED (51) S/P CABG (coronary artery bypass graft) Code(s): Z95.1 - PRESENCE OF AORTOCORONARY BYPASS GRAFT Assessment/Plan Plan: On amllodipine and lisinopril (low-normal systolic/diastolic CHF; HTN; DM). ABX resp support per pulmonary DVT plx wound care F/u BUn/Cr, electrolytes, daily weight, Is and Os.
--- NOTE | 2019-10-29 11:03 | PN ---
Progress Note, Physician History of Present Illness: no new events - Current Medication List Current Medications: Active Medications Acetaminophen (Tylenol Oral Solution -) 650 mg GT Q6H PRN PRN Reason: PAIN Last Admin: 10/27/19 09:36 Dose: 650 mg Documented by: Albuterol/Ipratropium (Duoneb -) 1 amp NEB RQID [facility] Last Admin: 10/28/19 15:59 Dose: 1 amp Documented by: Allopurinol (Zyloprim -) 100 mg PEG DAILY [facility] Last Admin: 10/29/19 10:05 Dose: 100 mg Documented by: Amino Acids (Prosource No Carb Liquid Pkt) 30 ml GT BID@0800,1730 [facility] Last Admin: 10/29/19 10:04 Dose: 30 ml Documented by: Amlodipine Besylate (Norvasc -) 5 mg PEG DAILY [facility] Last Admin: 10/29/19 10:05 Dose: 5 mg Documented by: Ascorbic Acid (Vitamin C Oral Solution -) 500 mg GT DAILY [facility] Last Admin: 10/29/19 10:06 Dose: 500 mg Documented by: Atorvastatin Calcium (Lipitor -) 80 mg PEG HS [facility] Last Admin: 10/28/19 21:30 Dose: 80 mg Documented by: Banana Based Medical Food (Banatrol Plus Powder Packet) 1 packet PO TID [facility] Last Admin: 10/29/19 05:27 Dose: 1 packet Documented by: Cholecalciferol (Vitamin D3 -) 1,000 unit GT DAILY [facility] Last Admin: 10/29/19 10:05 Dose: 1,000 unit Documented by: Collagenase (Santyl -) 1 applic TP DAILY [facility]; Protocol Last Admin: 10/29/19 10:25 Dose: 1 applic Documented by: Cyanocobalamin (Vitamin B12 -) 1,000 mcg PEG DAILY [facility] Last Admin: 10/29/19 10:07 Dose: 1,000 mcg Documented by: Famotidine (Pepcid) 20 mg PEG DAILY [facility] Last Admin: 10/29/19 10:06 Dose: 20 mg Documented by: Ferrous Sulfate (Feosol) 300 mg GT BID [facility] Last Admin: 10/29/19 10:05 Dose: 300 mg Documented by: Heparin Sodium (Porcine) (Heparin -) 5,000 unit SQ BID [facility] Last Admin: 10/29/19 10:06 Dose: 5,000 unit Documented by: Meropenem 1 gm/ Dextrose 100 mls @ 200 mls/hr IVPB Q8H-IV [facility] Last Admin: 10/29/19 10:04 Dose: 200 mls/hr Documented by: Insulin Aspart (Novolog Vial Sliding Scale -) 1 vial SQ Q6HPO [facility]; Protocol Last Admin: 10/29/19 05:37 Dose: 5 units Documented by: Insulin Detemir (Levemir Vial) 56 units SQ 0700,2200 [facility] Last Admin: 10/29/19 06:11 Dose: 56 units Documented by: Lactobacillus Acidophilus (Bacid -) 1 tab GT DAILY [facility] Last Admin: 10/29/19 10:05 Dose: 1 tab Documented by: Levetiracetam (Keppra Oral Solution -) 1,000 mg GT BID [facility] Last Admin: 10/29/19 10:04 Dose: 1,000 mg Documented by: Lisinopril (Prinivil) 5 mg GT DAILY [facility] Last Admin: 10/29/19 10:07 Dose: 5 mg Documented by: Multivitamins/Minerals (Certavite-Antioxidant Liquid) 15 ml GT DAILY [facility] Last Admin: 10/29/19 10:06 Dose: 15 ml Documented by: Nystatin (Nystop Powder -) 1 applic TP BID [facility] Last Admin: 10/29/19 10:24 Dose: 1 applic Documented by: Prednisone (Deltasone -) 5 mg PEG DAILY [facility] Last Admin: 10/29/19 10:06 Dose: 5 mg Documented by: Valproate Sodium (Depakene -) 750 mg GT TID [facility] Last Admin: 10/29/19 05:27 Dose: 750 mg Documented by: - Objective Vital Signs: Vital Signs Temperature 98.2 F 10/29/19 02:10 Pulse Rate 98 H 10/29/19 08:38 Respiratory Rate 21 H 10/29/19 08:38 Blood Pressure 151/74 10/29/19 02:10 O2 Sat by Pulse Oximetry (%) 99 10/29/19 08:38 Constitutional: Yes: No Distress, Calm Cardiovascular: Yes: S1, S2 Respiratory: Yes: Regular, Other Gastrointestinal: Yes: Normal Bowel Sounds, Soft Musculoskeletal: Yes: WNL Extremities: Yes: WNL Neurological: Yes: Other Psychiatric: Yes: Other Labs: CBC, BMP 10/27/19 11:14 10/27/19 11:14 INR, PTT INR 1.05 (0.83-1.09) 10/17/19 18:47 Assessment/Plan Problem List - Problems (1) Gram-negative bacteremia Code(s): R78.81 - BACTEREMIA (2) History of CVA (cerebrovascular accident) Code(s): Z86.73 - PRSNL HX OF TIA (TIA), AND CEREB INFRC W/O RESID DEFICITS (3) CAD (coronary artery disease) Code(s): I25.10 - ATHSCL HEART DISEASE OF [place] CORONARY ARTERY W/O ANG PCTRS (4) Diarrhea Code(s): R19.7 - DIARRHEA, UNSPECIFIED (5) VESTA (acute kidney injury) Code(s): N17.9 - ACUTE KIDNEY FAILURE, UNSPECIFIED (6) Pneumonia Code(s): J18.9 - PNEUMONIA, UNSPECIFIED ORGANISM Qualifiers: Pneumonia type: due to unspecified organism Laterality: unspecified laterality Lung location: unspecified part of lung Qualified Code(s): J18.9 - Pneumonia, unspecified organism (7) Obese Code(s): E66.9 - OBESITY, UNSPECIFIED Qualifiers: Body mass index: BMI 60.0-69.9 (8) UTI (urinary tract infection) Code(s): N39.0 - URINARY TRACT INFECTION, SITE NOT SPECIFIED Qualifiers: Urinary tract infection type: site unspecified Hematuria presence: with hematuria Qualified Code(s): N39.0 - Urinary tract infection, site not specified; R31.9 - Hematuria, unspecified (9) Diabetes Code(s): E11.9 - TYPE 2 DIABETES MELLITUS WITHOUT COMPLICATIONS (10) HTN (hypertension) Code(s): I10 - ESSENTIAL (PRIMARY) HYPERTENSION (11) Hyperlipidemia Code(s): E78.5 - HYPERLIPIDEMIA, UNSPECIFIED (12) S/P CABG (coronary artery bypass graft) Code(s): Z95.1 - PRESENCE OF AORTOCORONARY BYPASS GRAFT (13) COPD (chronic obstructive pulmonary disease) Code(s): J44.9 - CHRONIC OBSTRUCTIVE PULMONARY DISEASE, UNSPECIFIED (14) Decubitus ulcer, stage 4 with infection Code(s): L89.94 - PRESSURE ULCER OF UNSPECIFIED SITE, STAGE 4; L08.9 - LOCAL INFECTION OF THE SKIN AND SUBCUTANEOUS TISSUE, UNSP (15) Lactic acid increased Code(s): E87.2 - ACIDOSIS (16) Metabolic encephalopathy Code(s): G93.41 - METABOLIC ENCEPHALOPATHY (17) Seizures Code(s): R56.9 - UNSPECIFIED CONVULSIONS (18) ESBL (extended spectrum beta-lactamase) producing bacteria infection Code(s): A49.9 - BACTERIAL INFECTION, UNSPECIFIED; Z16.12 - EXTENDED SPECTRUM BETA LACTAMASE (ESBL) RESISTANCE Assessment/Plan Sepsis Gram negative UTI with bacteremia ESBL + bacterial infection HCAP vs VAP Diarrhea Polymicrobial Sacral St IV DU infection/ likely OM Seizures Chronic respiratory failure s/p trach/MV Acute kidney injury Uncontrolled DM Morbid obesity Hx of CVA s/p thrombectomy CAD s/p CABG x 2 COPD Diastolic CHF HTN HLD plan continue current mgmt rest as per team
[2019-10-29 11:19] VITALS: BP 145/71; TEMP 98.3
[2019-10-29] MEDS ORDERED: INSULIN (NOVOLOG) ASPART 100 UNITS/ML 10ML VIAL ONE (11:36)
--- NOTE | 2019-10-29 11:38 | PN ---
Progress Note (short form) - Note Progress Note: PULMONARY Vented, no fevers recorded. Vital Signs Period Temp Pulse Resp BP Sys/Gray Pulse Ox Last 24 Hr 98.2 F-99.3 F 94-98 18-22 136-151/63-74 99-100 Gen: vented Heart: RRR Lung: decreased breath sounds at the bases Abd: soft, nontender Ext: no edema CBC, BMP 10/27/19 11:14 10/27/19 11:14 Active Medications Acetaminophen (Tylenol Oral Solution -) 650 mg GT Q6H PRN PRN Reason: PAIN Last Admin: 10/27/19 09:36 Dose: 650 mg Documented by: Albuterol/Ipratropium (Duoneb -) 1 amp NEB RQID [facility] Last Admin: 10/28/19 15:59 Dose: 1 amp Documented by: Allopurinol (Zyloprim -) 100 mg PEG DAILY [facility] Last Admin: 10/29/19 10:05 Dose: 100 mg Documented by: Amino Acids (Prosource No Carb Liquid Pkt) 30 ml GT BID@0800,1730 [facility] Last Admin: 10/29/19 10:04 Dose: 30 ml Documented by: Amlodipine Besylate (Norvasc -) 5 mg PEG DAILY [facility] Last Admin: 10/29/19 10:05 Dose: 5 mg Documented by: Ascorbic Acid (Vitamin C Oral Solution -) 500 mg GT DAILY [facility] Last Admin: 10/29/19 10:06 Dose: 500 mg Documented by: Atorvastatin Calcium (Lipitor -) 80 mg PEG HS [facility] Last Admin: 10/28/19 21:30 Dose: 80 mg Documented by: Banana Based Medical Food (Banatrol Plus Powder Packet) 1 packet PO TID [facility] Last Admin: 10/29/19 05:27 Dose: 1 packet Documented by: Cholecalciferol (Vitamin D3 -) 1,000 unit GT DAILY [facility] Last Admin: 10/29/19 10:05 Dose: 1,000 unit Documented by: Collagenase (Santyl -) 1 applic TP DAILY [facility]; Protocol Last Admin: 10/29/19 10:25 Dose: 1 applic Documented by: Cyanocobalamin (Vitamin B12 -) 1,000 mcg PEG DAILY [facility] Last Admin: 10/29/19 10:07 Dose: 1,000 mcg Documented by: Famotidine (Pepcid) 20 mg PEG DAILY [facility] Last Admin: 10/29/19 10:06 Dose: 20 mg Documented by: Ferrous Sulfate (Feosol) 300 mg GT BID [facility] Last Admin: 10/29/19 10:05 Dose: 300 mg Documented by: Heparin Sodium (Porcine) (Heparin -) 5,000 unit SQ BID [facility] Last Admin: 10/29/19 10:06 Dose: 5,000 unit Documented by: Meropenem 1 gm/ Dextrose 100 mls @ 200 mls/hr IVPB Q8H-IV [facility] Last Admin: 10/29/19 10:04 Dose: 200 mls/hr Documented by: Insulin Aspart (Novolog Vial Sliding Scale -) 1 vial SQ Q6HPO [facility]; Protocol Last Admin: 10/29/19 05:37 Dose: 5 units Documented by: Insulin Detemir (Levemir Vial) 56 units SQ 0700,2200 [facility] Last Admin: 10/29/19 06:11 Dose: 56 units Documented by: Lactobacillus Acidophilus (Bacid -) 1 tab GT DAILY [facility] Last Admin: 10/29/19 10:05 Dose: 1 tab Documented by: Levetiracetam (Keppra Oral Solution -) 1,000 mg GT BID [facility] Last Admin: 10/29/19 10:04 Dose: 1,000 mg Documented by: Lisinopril (Prinivil) 5 mg GT DAILY [facility] Last Admin: 10/29/19 10:07 Dose: 5 mg Documented by: Multivitamins/Minerals (Certavite-Antioxidant Liquid) 15 ml GT DAILY [facility] Last Admin: 10/29/19 10:06 Dose: 15 ml Documented by: Nystatin (Nystop Powder -) 1 applic TP BID [facility] Last Admin: 10/29/19 10:24 Dose: 1 applic Documented by: Prednisone (Deltasone -) 5 mg PEG DAILY [facility] Last Admin: 10/29/19 10:06 Dose: 5 mg Documented by: Valproate Sodium (Depakene -) 750 mg GT TID [facility] Last Admin: 10/29/19 05:27 Dose: 750 mg Documented by: A/P IMP CHRONIC RESPIRATORY FAILURE S/P CVA WITH THROMBECTOMY UROSEPSIS GRAM NEG BACTEREMIA ? PNEUMONIA ELEVATED LACTATE LEVEL ASHD S/P CABG COPD HTN HLD DIASTOLIC HF SACRAL DECUBITUS VESTA ANEMIA PLAN VENT SUPPORT ON AC MODE IVF ABX PER ID MONITOR LYTES,RENAL FUNCTION, WOUND CARE
--- NOTE | 2019-10-29 16:42 | PN ---
Progress Note, Physician History of Present Illness: Pt seen and examined. No new events. - Objective Vital Signs: Vital Signs Temperature 98.3 F 10/29/19 09:00 Pulse Rate 98 H 10/29/19 09:00 Respiratory Rate 22 H 10/29/19 15:12 Blood Pressure 145/71 10/29/19 09:00 O2 Sat by Pulse Oximetry (%) 99 10/29/19 09:00 Constitutional: Yes: Calm Eyes: Yes: Conjunctiva Clear Neck: Yes: Supple Cardiovascular: Yes: S1, S2 Respiratory: Yes: Mechanically Ventilated Gastrointestinal: Yes: Normal Bowel Sounds, Soft Genitourinary: Yes: Incontinence Edema: Yes Edema: LUE: Trace, RUE: Trace Neurological: Yes: Pre-Existing Deficit Labs: CBC, BMP 10/27/19 11:14 10/27/19 11:14 INR, PTT INR 1.05 (0.83-1.09) 10/17/19 18:47 Assessment/Plan Impression 1. VESTA 2. DM 3. hypernatremia 4. resp failure 5. cva 6. copd 7. htn Plan - no new labs - pt tolerating feeds - monitor lytes in rehab - avoid nephrotoxins - stable off of fluids - vent support
== END 2019-10-29 15:23 | DRG 870 ==
LOC: JER 16:43 → JERBED 21:23 → J5S 10-18 00:07
PROVIDERS: ADMIT Internal Medicine; ATTEND Family Medicine
PROC: 5A1955Z Respiratory Ventilation, Greater than 96 Consecutive Hours (ICD-10-PCS; principal; 2019-10-17)
PROC: 3E0G76Z Introduction of Nutritional Substance into Upper GI, Via Natural or Artificial Opening (ICD-10-PCS; 2019-10-17)
PROC: 2W15X6Z Compression of Back using Pressure Dressing (ICD-10-PCS; 2019-10-23)
PROC: 2W15X6Z Compression of Back using Pressure Dressing (ICD-10-PCS; 2019-10-26)
DX: A41.50 Gram-negative sepsis, unspecified (principal); L89.154 Pressure ulcer of sacral region, stage 4; G93.41 Metabolic encephalopathy; J18.9 Pneumonia, unspecified organism; J96.02 Acute respiratory failure with hypercapnia; E87.0 Hyperosmolality and hypernatremia; I50.32 Chronic diastolic (congestive) heart failure; N39.0 Urinary tract infection, site not specified; N17.9 Acute kidney failure, unspecified; J98.11 Atelectasis; I13.0 Hypertensive heart and chronic kidney disease with heart failure and stage 1 through stage 4 chronic kidney disease, or unspecified chronic kidney disease; J96.10 Chronic respiratory failure, unspecified whether with hypoxia or hypercapnia; M86.8X8 Other osteomyelitis, other site; J44.9 Chronic obstructive pulmonary disease, unspecified; E11.65 Type 2 diabetes mellitus with hyperglycemia; N18.9 Chronic kidney disease, unspecified; Z93.0 Tracheostomy status; E86.0 Dehydration; I25.10 Atherosclerotic heart disease of native coronary artery without angina pectoris; Z95.1 Presence of aortocoronary bypass graft; I27.20 Pulmonary hypertension, unspecified; D64.9 Anemia, unspecified; E11.22 Type 2 diabetes mellitus with diabetic chronic kidney disease; I34.0 Nonrheumatic mitral (valve) insufficiency; E78.5 Hyperlipidemia, unspecified; Z86.73 Personal history of transient ischemic attack (TIA), and cerebral infarction without residual deficits; E21.3 Hyperparathyroidism, unspecified; Z88.0 Allergy status to penicillin; I35.1 Nonrheumatic aortic (valve) insufficiency; Z93.1 Gastrostomy status; E66.01 Morbid (severe) obesity due to excess calories; M10.9 Gout, unspecified; R19.7 Diarrhea, unspecified; R56.9 Unspecified convulsions; K76.0 Fatty (change of) liver, not elsewhere classified; Z79.84 Long term (current) use of oral hypoglycemic drugs; R31.9 Hematuria, unspecified; E11.69 Type 2 diabetes mellitus with other specified complication
CPT/HCPCS: 36415; 36430; 71045-TC-FY; 74190-TC-FY; 76775-TC; 76937; 80048; 80053; 80061; 81003; 82010; 82272; 82436; 82565; 82607; 82728; 82803; 82962; 83036; 83540; 83550; 83605; 83721; 84133; 84300; 84439; 84443; 84484; 85025; 85610; 85730; 86850; 86900; 86901; 86922; 87040; 87070; 87086; 87186; 87205; 87324; 87449; 90670; 93005; 93010; 94002; 94640; 97161-GP; 99285-25; G0480; J1644; P9058; U0003

== ENCOUNTER 2020-02-14 20:36 | Emergency (ER) | payer OTHER, BC ==
[2020-02-14 21:04] VITALS: BP 76/27; PULSE 105; BMI 36.6
[2020-02-14] MEDS ORDERED: CALCIUM GLUCONATE 10% - 1,000 MG/10 ML VIAL ONE (21:10)
[2020-02-14] MEDS ORDERED: CALCIUM GLUCONATE 10% - 1,000 MG/10 ML VIAL IVPUSH ONE (21:30)
[2020-02-14] MEDS ORDERED: ALBUTEROL SO4 2.5/IPRATROPIUM 0.5 INH SOL 3 ML VIAL.NEB. NEB ONE (21:49)
== END 2020-02-15 02:18 | disposition expired ==
LOC: JER 20:36
PROC: 3E033GC Introduction of Other Therapeutic Substance into Peripheral Vein, Percutaneous Approach (ICD-10-PCS; principal; 2020-02-14)
DX: I46.9 Cardiac arrest, cause unspecified (principal)
CPT/HCPCS: 99284-25